=== PATIENT | male | born 1940 | race Caucasian/White ===

== ENCOUNTER 2018-10-31 19:37 | Inpatient (IN) ==
[2018-10-31] MEDS ORDERED: LEVALBUTEROL HCL 1.25 MG/3 ML NEB NEB STA (20:07)
[2018-10-31 20:40] LABS: iSTAT Hemoglobin 14.3 g/dl (14.0-18.0); iSTAT Ionized Calcium 1.15 mmol/l (1.12-1.32); iSTAT Potassium 2.8 mEq/L (3.3-5.0)
[2018-10-31 20:41] LABS: Basophils # (auto) 0.02 K/uL (0-0.2); Basophils % (auto) 0.2 %; Eosinophils # (auto) 0.03 K/uL (0-0.5); Eosinophils % (auto) 0.3 %; Hematocrit (blood only) 42.4 % (42-52); Hemoglobin 15.2 g/dL (14.0-18.0); Immature Granulocytes # (auto) 0.04 K/uL (0.00-0.02); Immature Granulocytes % (auto) 0.3 %; Lymphocytes # (auto) 0.85 K/uL (1.2-3.4); Lymphocytes % (auto) 7.4 %; Mean Corpuscular Hgb Conc 35.8 g/dL (32-36); Mean Corpuscular Volume 86.9 fL (80-100); Mean Platelet Volume 11.4 fL (7.4-10.4); Monocytes # (auto) 0.28 K/uL (0.11-0.59); Monocytes % (auto) 2.4 %; Neutrophils # (auto) 10.31 K/uL (1.4-6.5); Neutrophils % (auto) 89.4 %; Platelet Count 149 K/uL (130-400); RDW Coefficient of Variation 13.6 % (11.5-14.5); RDW Standard Deviation 43.1 fL (36.4-46.3); Red Blood Count 4.88 M/uL (4.7-6.1); White Blood Count 11.53 K/uL (4.8-10.8)
[2018-10-31 20:47] LABS: Influenza A virus by PCR Neg for Influ A (Neg); Influenza B virus by PCR Neg for Influ B (Neg)
[2018-10-31] MEDS ORDERED: MoRPHine SULFATE 10 MG/ML CARP/VIAL IV STA (20:48)
[2018-10-31] MEDS ORDERED: ONDANSETRON INJ 2 MG/ML 2 ML VIAL IV STA (20:48)
[2018-10-31 20:58] LABS: INR 1.1 (0.9-1.1); Partial Thromboplastin Ratio 0.9; Partial Thromboplastin Time 25.6 Seconds (21.0-31.0)
[2018-10-31 21:00] LABS: Alanine Aminotransferase 18 U/L (12-78); Albumin Level 3.3 gm/dl (3.4-5.0); Aspartate Aminotransferase 10 U/L (15-37); Blood Urea Nitrogen 18 mg/dl (7-18); Calcium 8.2 mg/dl (8.5-10.1); Carbon Dioxide 24 mmol/L (21-32); Chloride 106 mmol/L (98-107); Creatinine Clr Calc Pharmacy 58.9 ml/min; Est GFR (African American) 69.5; Glucose 84 mg/dl (70-99); Potassium 2.8 mmol/L (3.5-5.1); Sodium 138 mmol/L (136-145)
[2018-10-31 21:05] LABS: Alkaline Phosphatase 79 U/L (45-117); Bilirubin,Total 1.4 mg/dl (0.2-1); Creatine Kinase 85 U/L (39-308); Creatine Kinase MB < 1.0 ng/ml (0.5-3.6); Globulin 3.2 gm/dl (2.5-4.0); Total Protein 6.5 gm/dl (6.4-8.2); Troponin I < 0.015 ng/ml (0-0.045)
--- NOTE | 2018-10-31 21:11 | XRay Report ---
SINGLE VIEW CHEST CLINICAL HISTORY: Sepsis. FINDINGS: An AP, portable, upright chest radiograph is compared to study dated 08/13/2015 and correlat ed with chest CT dated 03/25/2015. The examination is degraded by portable technique and patient rotati on. The heart is enlarged and there is atherosclerotic calcification of the thoracic aorta. Pulmonar y vasculature is noncongested. Emphysema and chronic interstitial thickening are similar to previous. Airspace consolidation is CT of the left lung base. No large pleural effusion or pneumothorax is see n. The skeletal structures are osteopenic. The bony thorax is grossly intact. IMPRESSION: 1. Cardiomegaly and emphysema without radiographic evidence of congestive failure. 2. Airspace consolidation is seen at the left lung base. Correlate clinically for evidence of pneumon ia/aspiration pneumonitis. Radiographic follow-up to resolution is recommended. Electronically signed by: Vazquez Nieves M.D. 10/31/2018 9:09 PM
[2018-10-31] MEDS ORDERED: OPTIRAY 320 125ml IV PRN (21:17)
[2018-10-31] MEDS ORDERED: POTASSIUM CHLORIDE 10 MEQ TABCR PO STA (21:18)
[2018-10-31] MEDS ORDERED: METOCLOPRAMIDE HCL INJ 5 MG/ML 2 ML VIAL IV STA (21:18)
--- NOTE | 2018-10-31 21:33 | CT Scan Report ---
CT ANGIOGRAM OF THE CHEST; CT SCAN OF THE ABDOMEN AND PELVIS WITH IV CONTRAST CLINICAL HISTORY: Fever. Chills. Cough. Generalized abdominal pain. Nausea. COMPARISON STUDY: Chest x-ray dated 10/31/2018. Chest CT dated 03/25/2015. Abdominal CT dated 02/03/2011 . TECHNIQUE: Following the IV administration of 120 of Optiray 320, CT angiogram of the chest is perfor med from the upper abdomen to the thoracic inlet utilizing the pulmonary embolus protocol. Images are reviewed in the axial, sagittal, coronal planes. 3-D MIPS images are created and assessed. Subsequen tly, CT scan of the abdomen and pelvis was performed from the lung bases to the proximal femora. Imag es are reviewed in the axial, sagittal, and coronal planes. IV contrast was administered without comp lication. A dose lowering technique was utilized adhering to the principles of ALARA. The examination is compromised by motion artifact. CT DOSE: 1036.39 mGy.cm FINDINGS: CHEST: Thyroid: Atrophic versus surgically absent. Thoracic aorta: There is atherosclerotic calcification of the thoracic aorta, which is normal in rian ariane and demonstrates standard 3-vessel arch anatomy. No dissection is seen. Pulmonary vasculature: The pulmonary trunk is normal in caliber. There are no central filling defects identified in the main or lobar pulmonary arteries to indicate pulmonary embolus. Evaluation of the segmental and subsegmental branches is significantly degraded by motion artifact. Heart: The heart is mildly enlarged and without pericardial effusion. The coronary arteries are dense ly calcified. Lungs and pleural spaces: Evaluation of lung parenchyma is significantly degraded by motion artifact. Emphysematous change is noted in the upper lobes. Patchy airspace consolidation is seen at both lung bases, left greater than right. No pleural effusion is identified. The trachea and central airways a re clear. Mediastinum: There is no mediastinal lymphadenopathy. Liss: Enlarged right hilar node measures 2 cm in short axis. Axillae: There is no axillary lymphadenopathy. Bony thorax: The skeletal structures are osteopenic. No lytic or blastic lesions are identified. ABDOMEN AND PELVIS: Liver: The contrast-enhanced liver is normal in size, contour, and attenuation. There is no intrahepa tic or ductal dilatation. The hepatic veins and portal veins are patent. There are least 2 cysts in t he left lobe which measure up to 1.8 cm. Gallbladder: Unremarkable. Spleen: Normal in size and attenuation. Pancreas: Unremarkable. Adrenal glands: Unremarkable. Kidneys: The contrast enhanced kidneys demonstrate cortical atrophy and are without hydronephrosis. T he kidneys enhance symmetrically. Parapelvic cyst on the right are similar to previous. Abdominal vasculature: The abdominal aorta is normal in course and caliber noting advanced atheroscle rotic calcification. Bowel: There is mild colonic diverticulosis without CT evidence of acute diverticulitis. Colonic feca l retention is observed. The appendix is not identified and reported surgically absent. There is a s mall duodenal diverticulum. Peritoneum: There is no intraperitoneal free air or abdominal ascites. There is a fat-containing umbi lical hernia. Lymphadenopathy: None. Pelvic viscera: The prostate gland is mildly enlarged and heterogeneous. Brachytherapy seeds are note d. The bladder wall is mildly thickened and trabeculated indicating chronic outlet obstruction. Skeletal structures: The skeletal structures are osteopenic. There is duzi-ld-hdyeygja lumbosacral sp ondylosis. No lytic or blastic lesions are seen. IMPRESSION: 1. Motion compromised examination. 2. There is no evidence of central pulmonary embolus in the main, lobar, or segmental pulmonary arter ies. 3. Cardiomegaly and emphysema. 4. Patchy airspace consolidation is seen at both lung bases, left greater than right. The appearance is typical for pneumonia/aspiration pneumonitis. Clinical correlation will be required and radiograph ic follow-up to resolution is recommended. 5. There are no acute infectious or inflammatory findings in the abdomen or pelvis. 6. Mild colonic diverticulosis without CT evidence of acute diverticulitis. 7. Additional findings as above. Electronically signed by: Vazquez Nieves M.D. 10/31/2018 9:30 PM
[2018-10-31] MEDS ORDERED: PIPERACILLIN/TAZOBACTAM 4.5 GM/120 ML BAG IV ONE (21:40)
[2018-10-31] MEDS ORDERED: LEVOFLOXACIN/D5W 750 MG/150 ML BAG IV STA (21:40)
[2018-10-31] MEDS ORDERED: PIPERACILL/TAZOBAC CONSULT ACTIVE PRN (21:40)
[2018-10-31] MEDS: POTASSIUM CHLORIDE / WTR 10 MEQ/100 ML PLCT IV SCH ×2 (21:54→23:00)
[2018-10-31] MEDS ORDERED: POTASSIUM CHLORIDE 20 MEQ TABCR PO STA (22:24)
[2018-10-31] MEDS ORDERED: NSS + 20MEQ KCL 20 MEQ/1,000 ML BAG IV ONE (22:26)
[2018-10-31] MEDS ORDERED: methylPREDNISolone 20 MG in SYRINGE 0 ML IV STA (22:27)
[2018-10-31 23:13] LABS: Magnesium 1.7 mg/dl (1.8-2.4)
--- NOTE | 2018-10-31 23:23 | History & Physical Report ---
Date of Service October 31, 2018 Assessment & Plan (1) Acute hypoxemic respiratory failure: Secondary to aspiration pneumonia Possible sepsis CAD as per records hypertension, BP on the lower side hx bilateral PE status post anti-coagulation BPH/prostate cancer as per records hypothyroidism, TSH noted to be low Loose stools rule out C. difficile past tobacco abuse Medical telemetry Supplemental O2 Baseline ABG Solu-Medrol 1 dose for bronchospasm causing hypoxemia, may benefit from a dditional steroid doses Cultures, Unasyn IVF Hold home antihypertensives for now until BP stable. Check other TFTs, levothyroxine dose may need adjustment Stool C. difficile PT OT eval DVT prophylaxis. Lovenox subcu Full code History of Present Illness Chief Complaint: Chest pain, S OB Primary Care Provider: Donn Clarke MD History obtained from patient, family, and records. Medical history significant for CAD, hypertension, history of PE status post anti-coagulation, asthma, BPH/prostate cancer, skin cancer, hypothyroidism, past tobacco abuse Recent confinement January 2015 for BPPV. Last month, patient noted chest/abdominal pain after falling on an upright log at home. Loose stools since accident as per family. Outpatient imaging unremarkable. Discomfort had subsided to be a dull discomfort as per patient. Today patient noted fever chills nausea emesis, worsening of epigastric/chest pain. Patient subsequently noted junky cough, increasing shortness of breath. At the ER, patient received Levaquin and Zosyn for pneumonia. 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 Allergies Allergy/AdvReac Type Severity Reaction Status Date / Time codeine AdvReac Mild N/V Verified 10/31/18 22:43 Home Medications Home Medications Medication Instructions Recorded Confirmed Type aspirin [Aspir-Low] 81 mg PO DAILY 10/31/18 10/31/18 History atorvastatin 20 mg PO DAILY 10/31/18 10/31/18 History dextran 70-hypromellose (PF) 1 drp OPL QID PRN 10/31/18 10/31/18 History fluticasone propion-salmeterol 1 inh INHALATION BID 10/31/18 10/31/18 History [Advair Diskus] guaifenesin [Mucinex] 600 mg PO Q12H PRN 10/31/18 10/31/18 History ipratropium-albuterol 3 ml INHALATION Q4 PRN 10/31/18 10/31/18 History levothyroxine 137 mcg PO 4XWK 10/31/18 10/31/18 History levothyroxine [Synthroid] 150 mcg PO 3XWK 10/31/18 10/31/18 History loratadine [Claritin] 10 mg PO DAILY 10/31/18 10/31/18 History losartan-hydrochlorothiazide 1 tab PO DAILY 10/31/18 10/31/18 History meclizine 25 mg PO Q6 PRN 10/31/18 10/31/18 History naproxen sodium [Aleve] 220 mg PO BID PRN 10/31/18 10/31/18 History potassium chloride [Klor-Con M10] 10 meq PO DAILY 10/31/18 10/31/18 History ranitidine HCl 300 mg PO QPM 10/31/18 10/31/18 History sertraline 50 mg PO DAILY 10/31/18 10/31/18 History tamsulosin [Flomax] 0.4 mg PO HS 10/31/18 10/31/18 History triamcinolone acetonide 1 spray INTRANASAL DAILY 10/31/18 10/31/18 History verapamil 120 mg PO QPM 10/31/18 10/31/18 History Past Med/Surg History Medical History Hypertension (Chronic) Asthma (Chronic) Emphysema of lung (Chronic) COPD (chronic obstructive pulmonary disease) (Chronic) Pulmonary emboli (Resolved) Prostate cancer (Resolved) Skin cancer (Resolved) Surgical History History of appendectomy (Resolved) H/O rotator cuff surgery (Resolved) Status post operation on nasal sinus (Resolved) "09/2002" Social History Preferred Language: French Communication Ability: Effective Maintenance Trainer Required: No Beliefs That Will Affect Care: None marital status: Current Living Situation: Spouse Other Information That Helps Us Care for You: No Feels Safe at Home: Yes Safety Concerns: Feels Safe At This Time Smoking Status: Unknown if ever smoked Hx Alcohol Use: Yes Alcohol type: beer, wine and hard liquor Hx Substance Use: No Review of Systems Review of Systems: As per HPI, all 10 systems reviewed, all other ROS negative Physical Exam Vital Signs (Past 24 Hours): Last Vital Signs Temp 37.2 C 10/31/18 19:40 Pulse 109 H 10/31/18 22:01 Resp 17 10/31/18 22:01 BP 111/57 L 10/31/18 22:01 Pulse Ox 86 L 10/31/18 21:45 Physical Exam: GENERAL: uncomfortable, pleasant, no respiratory distress SKIN: Normal color, warm HEENT: Bespectacled, pink palpebral conjunctivae, no ptosis, dry buccal mucosa NECK : Supple, no tenderness CHEST : Decreased breath sounds, occasional wheeze, no tenderness HEART : Tachycardic, no obvious murmurs ABDOMEN: Some distention, nontender EXTREMITIES : No LE swelling/tenderness, no other conspicuous deformities noted NEUROLOGIC : Coherent, no facial asymmetry, no other gross focality Results & Data Laboratory Results Laboratory Results WBC 11.53 K/uL (4.8-10.8) H 10/31/18 20:23 RBC 4.88 M/uL (4.7-6.1) 10/31/18 20:23 Hgb 15.2 g/dL (14.0-18.0) 10/31/18 20:23 POC Hgb 14.3 g/dl (14.0-18.0) 10/31/18 20:25 Hct 42.4 % (42-52) 10/31/18 20:23 POC Hct 42 % (42-52) 10/31/18 20:25 MCV 86.9 fL (80-100) 10/31/18 20:23 MCH 31.1 pg (25-34) 10/31/18 20:23 MCHC 35.8 g/dL (32-36) 10/31/18 20:23 RDW Std Deviation 43.1 fL (36.4-46.3) 10/31/18 20:23 RDW Coeff of Valentino 13.6 % (11.5-14.5) 10/31/18 20: Plt Count 149 K/uL (130-400) 10/31/18 20:23 MPV 11.4 fL (7.4-10.4) H 10/31/18 20: Immature Gran % (Auto) 0.3 % 10/31/18 20: Neut % (Auto) 89.4 % 10/31/18 20: Lymph % (Auto) 7.4 % 10/31/18 20: Edwards % (Auto) 2.4 % 10/31/18 20: Eos % (Auto) 0.3 % 10/31/18: Baso % (Auto) 0.2 % 10/31/18: Immature Gran # (Auto) 0.04 K/uL (0.00-0.02) H 10/31/18 20: Neut # (Auto) 10.31 K/uL (1.4-6.5) H 10/31/18 20: Lymph # (Auto) 0.85 K/uL (1.2-3.4) L 10/31/18: Edwards # (Auto) 0.28 K/uL (0.11-0.59) 10/31/18 20: Eos # (Auto) 0.03 K/uL (0-0.5) 10/31/18: Baso # (Auto) 0.02 K/uL (0-0.2) 10/31/18: PT 11.0 Seconds (9.0-12.0) 10/31/18 20: INR 1.1 (0.9-1.1) 10/31/18: APTT 25.6 Seconds (21.0-31.0) 10/31/18: PTT Ratio 0.9 10/31/18: POC Sodium 139 mEq/L (135-144) 10/31/18 20:25 Sodium 138 mmol/L (136-145) 10/31/18 20: POC Potassium 2.8 mEq/L (3.3-5.0) L 10/31/18 20: Potassium 2.8 mmol/L (3.5-5.1) L 10/31/18 20: POC Chloride 103 mEq/L (101-112) 10/31/18 20: Chloride 106 mmol/L (98-107) 10/31/18 20:23 Carbon Dioxide 24 mmol/L (21-32) 10/31/18 20: POC Total CO2 20 mEq/l (24-31) L 10/31/18 20:25 Anion Gap 8.0 (3-11) 10/31/18 20:23 POC Anion Gap 21.0 mmol/L (16-25) 10/31/18 20:25 POC BUN 18 mg/dl (7-18) 10/31/18 20:25 BUN 18 mg/dl (7-18) 10/31/18 20: Creatinine 1.18 mg/dl (0.6-1.4) 10/31/18 20: POC Creatinine 1.0 mg/dl (0.6-1.3) 10/31/18 20: Est Cr Clr Drug Dosing 58.9 ml/min 10/31/18 20: Est GFR ( Amer) 69.5 10/31/18 20: Est GFR (Non-Af Amer) 60.0 10/31/18: BUN/Creatinine Ratio 15.0 (10-20) 10/31/18 20: Glucose 84 mg/dl (70-99) 10/31/18 20: POC Glucose (other) 91 mg/dl (70-99) 10/31/18 20:25 POC Lactic Acid Adarsh 1.56 mmol/L (0.90-1.70) 10/31/18 20: Calcium 8.2 mg/dl (8.5-10.1) L 10/31/18 20: POC Ioniz Calcium Ruben 1.15 mmol/l (1.12-1.32) 10/31/18 20: Magnesium 1.7 mg/dl (1.8-2.4) L 10/31/18 20: Total Bilirubin 1.4 mg/dl (0.2-1) H 10/31/18 20:23 AST 10 U/L (15-37) L 10/31/18 20: ALT 18 U/L (12-78) 10/31/18 20: Alkaline Phosphatase 79 U/L (45-117) 10/31/18 20:23 Total Creatine Kinase 85 U/L (39-308) 10/31/18 20: CK-MB (CK-2) < 1.0 ng/ml (0.5-3.6) 10/31/18 20: CK/CKMB % Calc TNP 10/31/18 20: Troponin I < 0.015 ng/ml (0-0.045) 10/31/18 20: Total Protein 6.5 gm/dl (6.4-8.2) 10/31/18 20: Albumin 3.3 gm/dl (3.4-5.0) L 10/31/18: Globulin 3.2 gm/dl (2.5-4.0) 10/31/18 20: Albumin/Globulin Ratio 1.0 (0.9-2) 10/31/18: TSH 0.143 uIu/ml (0.300-4.500) L 10/31/18 20:23 Influenza Type A (PCR) Neg for Influ A (Neg) 10/31/18 20: Influenza Type B (PCR) Neg for Influ B (Neg) 10/31/18 20:[address] chest, abdomen pelvis: 1. Motion compromised examination. 2. There is no evidence of central pulmonary embolus in the main, lobar, or segmental pulmonary arteries. 3. Cardiomegaly and emphysema. 4. Patchy airspace consolidation is seen at both lung bases, left greater than r ight. The appearance is typical for pneumonia/aspiration pneumonitis. Clinical correlation will be required and radiographic follow-up to resolution is recommended. 5. There are no acute infectious or inflammatory findings in the abdomen or pelvis. 6. Mild colonic diverticulosis without CT evidence of acute diverticulitis.
[2018-10-31 23:47] LABS: Allen Test Pos (Pos); HCO3 ABG 22 mmol/L (19-24); Oxygen Saturation ABG 93.5 % (90-95); PCO2 ABG 36 mmHg (35-46); PO2 ABG 68 mm/Hg (80-95); pH ABG 7.41 (7.35-7.45)
[2018-10-31 23:54] LABS: Appearance Urine Clear (Clear); Bilirubin Urine Negative (Negative); Blood Urine Negative (Negative); Color Urine Yellow; Glucose Urine UA Negative (Negative); Ketones Urine Negative (Negative); Leukocyte Esterase Urine Negative (Negative); Nitrite Urine Negative (Negative); Protein Urine Negative (Negative); Specific Gravity Urine > 1.045 (1.000-1.030); Urobilinogen Urine Negative (Negative); pH Urine 5.5 (4.5-7.5)
[2018-11-01] MEDS ORDERED: PROCHLORPERAZINE 5 MG in SYRINGE 4 ML IV PRN (00:47)
[2018-11-01] MEDS ORDERED: LORazepam 0.25 MG/0.5 ML VIAL IV PRN (00:47)
[2018-11-01] MEDS ORDERED: TRAMADOL HCL 50 MG TABLET PO PRN (00:47)
[2018-11-01] MEDS ORDERED: MoRPHine SULFATE 4 MG/ML 1 ML CARP\\VIAL IV PRN (00:47)
[2018-11-01] MEDS ORDERED: DEXTRAN HYPROMELLOSE OPL PRN (00:47)
[2018-11-01] MEDS ORDERED: ACETAMINOPHEN 325 MG TAB PO PRN (00:47)
[2018-11-01] MEDS ORDERED: XOPENEX/ATROVENT 1.25mg/0.5MG NEB COMBO NEB SCH (02:00)
[2018-11-01] MEDS: IPRATROPIUM BROMIDE NEB SOLN 0.02% 2.5 ML VIAL INH SCH ×4 (02:05→19:15)
[2018-11-01] MEDS: LEVALBUTEROL 1.25MG/0.5ML NEB INH SCH ×4 (02:05→19:16)
[2018-11-01] MEDS: AMPICILLIN/SULBACTAM SOD 3,000 MG in 0.9 % SODIUM CHLORIDE 100 ML IV SCH ×4 (02:07→20:07)
[2018-11-01] MEDS ORDERED: MAGNESIUM SULFATE / D5W 1 GM/100 ML BAG IV ONE (03:31)
[2018-11-01] MEDS ORDERED: NSS + 20MEQ KCL 20 MEQ/1,000 ML BAG IV ONE (04:00)
[2018-11-01 06:23] LABS: Basophils # (auto) 0.01 K/uL (0-0.2); Hematocrit (blood only) 43.1 % (42-52); Hemoglobin 14.9 g/dL (14.0-18.0); Immature Granulocytes % (auto) 0.5 %; Lymphocytes # (auto) 0.55 K/uL (1.2-3.4); Lymphocytes % (auto) 2.6 %; Mean Corpuscular Hgb Conc 34.6 g/dL (32-36); Mean Corpuscular Volume 88.7 fL (80-100); Mean Platelet Volume 11.6 fL (7.4-10.4); Monocytes # (auto) 0.74 K/uL (0.11-0.59); Monocytes % (auto) 3.5 %; Neutrophils # (auto) 19.45 K/uL (1.4-6.5); Neutrophils % (auto) 93.4 %; Platelet Count 152 K/uL (130-400); RDW Standard Deviation 45.2 fL (36.4-46.3); Red Blood Count 4.86 M/uL (4.7-6.1); White Blood Count 20.85 K/uL (4.8-10.8)
[2018-11-01] MEDS ORDERED: LEVOTHYROXINE SODIUM 150 MCG TABLET PO SCH (06:30)
[2018-11-01 06:48] LABS: BUN Creatinine Ratio 12.7 (10-20); Calcium 8.4 mg/dl (8.5-10.1); Est GFR (African American) 66.8; Est GFR (Non-African American) 57.6; Magnesium 2.3 mg/dl (1.8-2.4); Potassium 4.4 mmol/L (3.5-5.1)
[2018-11-01 06:57] LABS: T4 Free Thyroxine 1.35 ng/dl (0.8-1.6)
[2018-11-01] MEDS: POTASSIUM CHLORIDE 10 MEQ TABCR PO SCH (08:34)
[2018-11-01] MEDS: LORATADINE 10 MG TAB PO SCH (08:34)
[2018-11-01] MEDS: ATORVASTATIN 20 MG TAB PO SCH (08:35)
[2018-11-01] MEDS: SERTRALINE HCL 50 MG TABLET PO SCH (08:35)
[2018-11-01] MEDS: TRIAMCINOLONE ACET NASAL SPRAY 10.8ML BTL SCH (08:36)
[2018-11-01] MEDS: FLUTICASONE/SALMETEROL 250/50 (ADVAIR) 14 PUFF/1 INHALER INH SCH ×2 (08:36→20:11)
[2018-11-01] MEDS: LOSARTAN POTASSIUM 50 MG TAB PO SCH (08:48)
[2018-11-01] MEDS ORDERED: Nursing to Pharmacy Communication ONE (08:50)
[2018-11-01] MEDS ORDERED: ASPIRIN 81 MG ECTAB PO SCH ×2 (09:00→21:00)
[2018-11-01] MEDS ORDERED: AMPICILLIN/SULBACTAM CONSULT ACTIVE PRN (09:00)
[2018-11-01] MEDS ORDERED: ALUMINUM/MAGNESIUM SUSP 30 ML UDC ONE (10:49)
--- NOTE | 2018-11-01 12:26 | Hospitalist Progress Note ---
Date of Service November 01, 2018 Assessment & Plan (1) Acute hypoxemic respiratory failure: Likely secondary to aspiration pneumonia, denies any problem with swallowing but has had nausea vomiting prior to this event Doubt any sepsis sepsis Clinically a lot better today Increased white count likely secondary to steroid We will continue current medications CAD as per records Denies any cardiac symptoms Hypertension, BP on the lower side Blood pressure has been stabilized H/P bilateral PE status post anti-coagulation Not on any anticoagulation right now BPH/prostate cancer as per records Continue current medication Hypothyroidism, TSH noted to be low Continue replacement Loose stools rule out C. difficile-pending for now past tobacco abuse PT OT eval DVT prophylaxis. Lovenox subcu Full code Subjective 11/01 The patient was seen and examined the medical telemetry unit Is a 77-year-old male significant past medical history of pulmonary embolism, COPD/asthma, hypertension was admitted with bibasilar pneumonia suspected to be secondary to aspiration Clinically a lot better today Complains to have some shortness of breath and wheezing at rest denies any other symptoms Review of Systems Review of Systems: All systems reviewed & are unremarkable except as noted in HPI & below Respiratory: + cough, + dyspnea on exertion and + wheezing Physical Exam Physical Exam: No apparent distress at rest Constitutional: WD/WN, vitals as above well developed Eyes: PERRL, conjunctivae normal, anicteric sclerae ENMT: external ear and nose normal, oropharynx normal Neck: trachea midline, no thyromegaly Respiratory: + respiratory distress and + labored breathing Auscultation: + diminished lung sounds, + crackles (Bibasal) and + wheezes (Bilaterally) Cardiovascular: Rate/Rhythm: regular rate and regular rhythm Heart Sounds: normal S1 and normal S2 Gastrointestinal (Abdomen): Inspection/Auscultation: abdomen normal to inspection and normal bowel sounds Percussion/Palpation: abdomen soft; abdomen nontender Neurologic: Alert, awake and oriented x3 Results & Data Vital Signs (Past 12 Hours) Vital Signs Temp Pulse Resp BP BP Pulse Ox 11/01/18 11:05 36.4 C L 65 20 125/62 93 11/01/18 10:00 91 11/01/18 07:35 82 18 96 11/01/18 07:18 36.6 C 87 20 135/73 94 11/01/18 03:35 36.7 C 90 18 129/73 92 11/01/18 02:05 90 16 97 11/01/18 01:22 36.7 C 96 H 18 145/78 H 95 Laboratory Results Short CBC 10/31/18 11/01/18 Range/Units 20:23 05:49 WBC 11.53 H 20.85 H (4.8-10.8) K/uL Hgb 15.2 14.9 (14.0-18.0) g/dL Hct 42.4 43.1 (42-52) % Plt Count 149 152 (130-400) K/uL BMP 10/31/18 11/01/18 20:23 05:49 Sodium 138 141 Potassium 2.8 L 4.4 D Chloride 106 111 H Carbon Dioxide 24 22 BUN 18 16 Creatinine 1.18 1.22 Glucose 84 129 H Calcium 8.2 L 8.4 L Cardiac Enzymes 10/31/18 Range/Units 20:23 Total Creatine Kinase 85 (39-308) U/L CK-MB (CK-2) < 1.0 (0.5-3.6) ng/ml Troponin I < 0.015 (0-0.045) ng/ml Liver Function 10/31/18 Range/Units 20:23 Total Bilirubin 1.4 H (0.2-1) mg/dl AST 10 L (15-37) U/L ALT 18 (12-78) U/L Alkaline Phosphatase 79 (45-117) U/L Albumin 3.3 L (3.4-5.0) gm/dl Urine 10/31/18 Range/Units 23:34 Urine Color Yellow Urine Appearance Clear (Clear) Urine pH 5.5 (4.5-7.5) Ur Specific Ch[place] > 1.045 H (1.000-1.030) Urine Protein Negative (Negative) Urine Glucose (UA) Negative (Negative) Medications Administered Current Inpatient Medications Acetaminophen (Tylenol) 650 mg PO Q4H PRN PRN Reason: Pain or Fever Stop: 12/01/18 00:46 Aspirin (Ecotrin Ectab) 81 mg PO HS JOHANA Stop: 12/01/18 08:59 Atorvastatin Calcium (Lipitor) 20 mg PO DAILY JOHANA Stop: 12/01/18 08:59 Last Admin: 11/01/18 08:35 Dose: 20 mg Documented by: Guaifenesin (Mucinex) 600 mg PO Q12H PRN PRN Reason: Congestion Stop: 12/01/18 00:46 Lorazepam (Ativan) 0.25 mg in 0.5 mls @ 0.5 mls/min IV Q4H PRN PRN Reason: Anxiety/Agitation Stop: 12/01/18 00:46 Potassium Chloride/Sodium Chloride (Normal Saline W/20 Meq Kcl) 20 meq in 1,000 mls @ 80 mls/hr IV .[id number] ONE Stop: 11/01/18 16:29 Last Admin: 11/01/18 03:46 Dose: 80 mls/hr Documented by: Prochlorperazine 5 mg/ Syringe 5 mls @ 5 mls/min IV Q6H PRN PRN Reason: Nausea And Vomiting Stop: 12/01/18 00:46 Ampicillin Sodium/Sulbactam Sodium 3,000 mg/ Sodium Chloride 108 mls @ 216 mls/hr IV Q6H [facility] Stop: 11/08/18 01:59 Last Infusion: 11/01/18 09:28 Dose: Infused Documented by: Ipratropium Weikert (Atrovent 0.02% 0.5mg/2.5ml) 0.5 mg INH Q6R [facility] Stop: 12/01/18 01:59 Last Admin: 11/01/18 07:31 Dose: 0.5 mg Documented by: Levalbuterol HCl (Xopenex 1.25mg/0.5ml Neb) 1.25 mg INH Q6R [facility] Stop: 12/01/18 01:59 Last Admin: 11/01/18 07:31 Dose: 1.25 mg Documented by: Levothyroxine Sodium (Levothyroxine Sodium) 137 mcg PO [email or web address] [facility] Stop: 12/02/18 06:29 Levothyroxine Sodium (Synthroid) 150 mcg PO [email or web address] [facility] Stop: 12/01/18 06:29 Last Admin: 11/01/18 04:53 Dose: 150 mcg Documented by: Loratadine (Claritin) 10 mg PO DAILY [facility] Stop: 12/01/18 08:59 Last Admin: 11/01/18 08:34 Dose: 10 mg Documented by: Losartan Potassium (Cozaar) 100 mg PO QAM [facility] Stop: 12/01/18 08:59 Last Admin: 11/01/18 08:48 Dose: 100 mg Documented by: Miscellaneous Information (Ampicillin/Sulbactam Consult) 1 ea N/A DAILY PRN PRN Reason: Consult Stop: 12/01/18 08:59 Morphine Sulfate (Morphine Sulfate) 4 mg IV Q4H PRN PRN Reason: Pain Stop: 11/15/18 00:46 Potassium Chloride (Klor-Con M10) 20 meq PO DAILY JOHANA Stop: 12/01/18 08:59 Last Admin: 11/01/18 08:34 Dose: 20 meq Documented by: Ranitidine HCl (Zantac) 300 mg PO QPM [facility] Stop: 12/01/18 20:59 Fluticasone/Salmeterol (Advair Diskus 250/50) 1 puffs INH BID JOHANA Stop: 12/01/18 08:59 Last Admin: 11/01/18 08:36 Dose: 1 puffs Documented by: Sertraline HCl (Zoloft) 50 mg PO DAILY JOHANA Stop: 12/01/18 08:59 Last Admin: 11/01/18 08:35 Dose: 50 mg Documented by: Tamsulosin HCl (Flomax) 0.4 mg PO HS [facility] Stop: 12/01/18 20:59 Tramadol HCl (Ultram) 25 - 50 mg PO Q4H PRN PRN Reason: Pain Stop: 12/01/18 00:46 Triamcinolone Acetonide (Nasacort) 1 sprays NA DAILY [facility] Stop: 12/01/18 08:59 Last Admin: 11/01/18 08:36 Dose: 1 sprays Documented by: Verapamil HCl (Calan Sr) 120 mg PO QPM [facility] Stop: 12/01/18 20:59
[2018-11-01] MEDS: guaiFENesin 600 MG TABCR PO PRN (20:11)
[2018-11-01] MEDS ORDERED: LORazepam 0.5 MG TAB PO STA (20:25)
[2018-11-01] MEDS ORDERED: POLYETHYLENE (MIRALAX) 17 GM PACK PO PRN (20:25)
[2018-11-01] MEDS ORDERED: TAMSULOSIN HCL 0.4 MG CAP PO SCH (21:00)
[2018-11-01] MEDS ORDERED: VERAPAMIL HCL 120 MG TABCR PO SCH (21:00)
[2018-11-01] MEDS: DOCUSATE SODIUM 100 MG CAP PO SCH (21:17)
[2018-11-02] MEDS: AMPICILLIN/SULBACTAM SOD 3,000 MG in 0.9 % SODIUM CHLORIDE 100 ML IV SCH ×2 (02:04→08:16)
[2018-11-02] MEDS: LEVALBUTEROL 1.25MG/0.5ML NEB INH SCH ×3 (02:07→14:02)
[2018-11-02] MEDS: IPRATROPIUM BROMIDE NEB SOLN 0.02% 2.5 ML VIAL INH SCH ×3 (02:08→14:02)
--- NOTE | 2018-11-02 03:56 | Emergency Department Note ---
Entered by Ira Justice acting as a scribe for History of Present Illness General Chief complaint: Illness Stated complaint: CHILLS, PAINS ALL OVER, NAUSEA, COUGH Time Seen by Provider: 10/31/18 19:52 Source: patient Mode of arrival: ambulatory Limitations: no limitations History of Present Illness Provider complaint: chest pain Onset (ago): hour(s) (this afternoon) Location: chest Pain Consistency: + other (episode) Quality: + other (chest pain) Associated symptoms: + fever/chills, + headaches, + nausea/vomiting and + other (neck pain, left arm pain) The patient is a 77 year old male who presents to the Emergency Room with co mplaints of an episode of chest pain that began this afternoon. The patient reports that he has also been experiencing fevers, chills, a headache, nausea, dizziness, and a left-sided neck pain that radiates into his left arm. He states that he does have a history of heart disease and notes he did have a stress test performed which was negative. He denies having a heart catheterization done. Per family, the patient last took Tylenol 2 hours ago. He notes that he did injure his chest with a log several weeks ago. He reports that he did have x-rays taken. Home Medications Home Medications Medication Instructions Recorded Confirmed Type aspirin [Aspir-Low] 81 mg PO DAILY 10/31/18 10/31/18 History atorvastatin 20 mg PO DAILY 10/31/18 10/31/18 History dextran 70-hypromellose (PF) 1 drp OPL QID PRN 10/31/18 10/31/18 History fluticasone propion-salmeterol 1 inh INHALATION BID 10/31/18 10/31/18 History [Advair Diskus] guaifenesin [Mucinex] 600 mg PO Q12H PRN 10/31/18 10/31/18 History ipratropium-albuterol 3 ml INHALATION Q4 PRN 10/31/18 10/31/18 History levothyroxine 137 mcg PO 4XWK 10/31/18 10/31/18 History levothyroxine [Synthroid] 150 mcg PO 3XWK 10/31/18 10/31/18 History loratadine [Claritin] 10 mg PO DAILY 10/31/18 10/31/18 History losartan-hydrochlorothiazide 1 tab PO DAILY 10/31/18 10/31/18 History meclizine 25 mg PO Q6 PRN 10/31/18 10/31/18 History naproxen sodium [Aleve] 220 mg PO BID PRN 10/31/18 10/31/18 History potassium chloride [Klor-Con M10] 10 meq PO DAILY 10/31/18 10/31/18 History ranitidine HCl 300 mg PO QPM 10/31/18 10/31/18 History sertraline 50 mg PO DAILY 10/31/18 10/31/18 History tamsulosin [Flomax] 0.4 mg PO HS 10/31/18 10/31/18 History triamcinolone acetonide 1 spray INTRANASAL DAILY 10/31/18 10/31/18 History verapamil 120 mg PO QPM 10/31/18 10/31/18 History Allergies Allergy/AdvReac Type Severity Reaction Status Date / Time codeine AdvReac Mild N/V Verified 10/31/18 22:43 Past Med/Surg History Medical History Hypertension (Chronic) Asthma (Chronic) Emphysema of lung (Chronic) COPD (chronic obstructive pulmonary disease) (Chronic) Pulmonary emboli (Resolved) Prostate cancer (Resolved) Skin cancer (Resolved) Surgical History History of appendectomy (Resolved) H/O rotator cuff surgery (Resolved) Status post operation on nasal sinus (Resolved) "09/2002" Social History Preferred Language: Tuvaluan Communication Ability: Effective 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 and A total of 10 systems reviewed and were otherwise negative Physical Exam Vital Signs Vital Signs - 24 hr 11/01/18 08:56 11/01/18 10:00 11/01/18 11:05 Temperature 36.4 C L Temperature Source Oral Pulse Rate [Right] 65 Respiratory Rate 20 Respiratory Effort / Characteristics Non-Labored Respiratory Depth Blood Pressure [Left Arm] Blood Pressure [Right Arm] 125/62 Blood Pressure Mean [Left Arm] Blood Pressure Mean [Right Arm] 83 Blood Pressure Position [Left Arm] Blood Pressure Position [Right Arm] Sitting Pulse Oximetry 91 93 Oxygen Delivery Method Room Air Room Air 11/01/18 13:46 11/01/18 15:29 11/01/18 19:18 Temperature 36.6 C Temperature Source Oral Pulse Rate [Right] 81 79 96 H Respiratory Rate 14 18 16 Respiratory Effort / Characteristics Spontaneous Non-Labored Spontaneous Respiratory Depth Blood Pressure [Left Arm] Blood Pressure [Right Arm] 114/61 Blood Pressure Mean [Left Arm] Blood Pressure Mean [Right Arm] 78 Blood Pressure Position [Left Arm] Blood Pressure Position [Right Arm] Pulse Oximetry 94 90 94 Oxygen Delivery Method Room Air Room Air 11/01/18 19:30 11/01/18 20:00 11/01/18 23:02 Temperature 36.8 C 36.6 C Temperature Source Oral Oral Pulse Rate [Right] 80 90 Respiratory Rate 18 18 Respiratory Effort / Characteristics Non-Labored Spontaneous Respiratory Depth Normal Blood Pressure [Left Arm] 119/65 120/67 Blood Pressure [Right Arm] Blood Pressure Mean [Left Arm] 83 84 Blood Pressure Mean [Right Arm] Blood Pressure Position [Left Arm] Blood Pressure Position [Right Arm] Pulse Oximetry 92 90 Oxygen Delivery Method Room Air 11/02/18 02:08 11/02/18 04:00 11/02/18 07:20 Temperature 36.8 C 36.5 C Temperature Source Oral Oral Pulse Rate [Right] 72 84 68 Respiratory Rate 16 16 18 Respiratory Effort / Characteristics Non-Labored Spontaneous Respiratory Depth Normal Blood Pressure [Left Arm] 105/58 L 116/66 Blood Pressure [Right Arm] Blood Pressure Mean [Left Arm] 73 82 Blood Pressure Mean [Right Arm] Blood Pressure Position [Left Arm] Lying Lying Blood Pressure Position [Right Arm] Pulse Oximetry 93 92 98 Oxygen Delivery Method Room Air Room Air Room Air GENERAL: Patient is a healthy-appearing well-nourished HEAD: Normocephalic atraumatic EYES: Ocular movements intact pupils equal and react to light OROPHARYNX mucous membranes are moist no exudates present no erythema or edema present NECK: Supple no nuchal rigidity CHEST: Good equal expansion LUNGS: Wheezing present in the left side of his chest. CARDIAC: Normal S1 and S2 ABDOMEN: Soft nontender no guarding BACK: No CVA tenderness EXTREMITIES: No pain upon palpation normal muscle strength in all groups no clubbing cyanosis or edema NEURO: Patient is following commands is answering questions appropriately. Alert and oriented x3 Cranial Nerves 2-12 grossly intact Course 2000: Past medical records reviewed. The patient was evaluated in room C4, and a complete history and physical examination were performed. 2143: I reviewed the patient's case with Dr. Milagro Paniagua Hospitalist. He will evaluate the patient for further management. 2148: I discussed today's findings with the patient and he verbalized agreement of the treatment plan. Administered Medications Aspirin (Ecotrin Ectab) 81 mg PO HS JOHANA Stop: 12/01/18 08:59 Last Admin: 11/01/18 20:12 Dose: 81 mg Documented by: [id number] Atorvastatin Calcium (Lipitor) 20 mg PO DAILY JOHANA Stop: 12/01/18 08:59 Last Admin: 11/01/18 08:35 Dose: 20 mg Documented by: [id number] Docusate Sodium (Colace) 100 mg PO DAILY JOHANA Stop: 12/01/18 20:24 Last Admin: 11/01/18 21:17 Dose: Not Given Documented by: [id number] Guaifenesin (Mucinex) 600 mg PO Q12H PRN PRN Reason: Congestion Stop: 12/01/18 00:46 Last Admin: 11/01/18 20:11 Dose: 600 mg Documented by: [id number] Ampicillin Sodium/Sulbactam Sodium 3,000 mg/ Sodium Chloride 108 mls @ 216 mls/hr IV Q6H JOHANA Stop: 11/08/18 01:59 Last Infusion: 11/02/18 02:38 Dose: 0 mls/hr Documented by: [id number] Admin: 11/02/18 02:04 Dose: 216 mls/hr Documented by: [id number] Infusion: 11/01/18 20:38 Dose: 0 mls/hr Documented by: [id number] Admin: 11/01/18 20:07 Dose: 216 mls/hr Documented by: [id number] Infusion: 11/01/18 14:00 Dose: 0 mls/hr Documented by: [id number] Admin: 11/01/18 13:10 Dose: 216 mls/hr Documented by: [id number] Infusion: 11/01/18 09:28 Dose: 0 mls/hr Documented by: [id number] Admin: 11/01/18 08:37 Dose: 216 mls/hr Documented by: [id number] Infusion: 11/01/18 02:49 Dose: 0 mls/hr Documented by: [id number] Admin: 11/01/18 02:07 Dose: 216 mls/hr Documented by: [id number] Ipratropium Moore (Atrovent 0.02% 0.5mg/2.5ml) 0.5 mg INH Q6R [facility] Stop: 12/01/18 01:59 Last Admin: 11/02/18 06:54 Dose: 0.5 mg Documented by: [id number] Admin: 11/02/18 02:08 Dose: 0.5 mg Documented by: [id number] Admin: 11/01/18 19:15 Dose: 0.5 mg Documented by: [id number] Admin: 11/01/18 13:46 Dose: 0.5 mg Documented by: [id number] Admin: 11/01/18 07:31 Dose: 0.5 mg Documented by: [id number] Admin: 11/01/18 02:05 Dose: 0.5 mg Documented by: [id number] Levalbuterol HCl (Xopenex 1.25mg/0.5ml Neb) 1.25 mg INH Q6R [facility] Stop: 12/01/18 01:59 Last Admin: 11/02/18 06:54 Dose: 1.25 mg Documented by: [id number] Admin: 11/02/18 02:07 Dose: 1.25 mg Documented by: [id number] Admin: 11/01/18 19:16 Dose: 1.25 mg Documented by: [id number] Admin: 11/01/18 13:46 Dose: 1.25 mg Documented by: [id number] Admin: 11/01/18 07:31 Dose: 1.25 mg Documented by: [id number] Admin: 11/01/18 02:05 Dose: 1.25 mg Documented by: [id number] Levothyroxine Sodium (Levothyroxine Sodium) 137 mcg PO [email or web address] [facility] Stop: 12/02/18 06:29 Last Admin: 11/02/18 06:04 Dose: 137 mcg Documented by: [id number] Levothyroxine Sodium (Synthroid) 150 mcg PO [email or web address]@30 [facility] Stop: 12/01/18 06:29 Last Admin: 11/01/18 04:53 Dose: 150 mcg Documented by: [id number] Loratadine (Claritin) 10 mg PO DAILY JOHANA Stop: 12/01/18 08:59 Last Admin: 11/01/18 08:34 Dose: 10 mg Documented by: [id number] Losartan Potassium (Cozaar) 100 mg PO QAM JOHANA Stop: 12/01/18 08:59 Last Admin: 11/01/18 08:48 Dose: 100 mg Documented by: [id number] Polyethylene Glycol (Miralax Powder Packet) 17 gm PO DAILY PRN PRN Reason: Constipation Stop: 12/01/18 20:24 Last Admin: 11/01/18 21:17 Dose: 17 gm Documented by: [id number] Potassium Chloride (Klor-Con M10) 20 meq PO DAILY JOHANA Stop: 12/01/18 08:59 Last Admin: 11/01/18 08:34 Dose: 20 meq Documented by: [id number] Ranitidine HCl (Zantac) 300 mg PO QPM JOHANA Stop: 12/01/18 20:59 Last Admin: 11/01/18 20:12 Dose: 300 mg Documented by: [id number] Fluticasone/Salmeterol (Advair Diskus 250/50) 1 puffs INH BID [facility] Stop: 12/01/18 08:59 Last Admin: 11/01/18 20:11 Dose: 1 puffs Documented by: [id number] Admin: 11/01/18 08:36 Dose: 1 puffs Documented by: [id number] Sertraline HCl (Zoloft) 50 mg PO DAILY [facility] Stop: 12/01/18 08:59 Last Admin: 11/01/18 08:35 Dose: 50 mg Documented by: [id number] Tamsulosin HCl (Flomax) 0.4 mg PO HS [facility] Stop: 12/01/18 20:59 Last Admin: 11/01/18 20:12 Dose: 0.4 mg Documented by: [id number] Triamcinolone Acetonide (Nasacort) 1 sprays NA DAILY [facility] Stop: 12/01/18 08:59 Last Admin: 11/01/18 08:36 Dose: 1 sprays Documented by: [id number] Verapamil HCl (Calan Sr) 120 mg PO QPM JOHANA Stop: 12/01/18 20:59 Last Admin: 11/01/18 20:12 Dose: 120 mg Documented by: [id number] Discontinued Medications Al Hydrox/Mg Hydrox/Simethicone (Maalox) Confirm Administered Dose 30 ml .ROUTE .STK-MED ONE Stop: 11/01/18 10:50 Last Admin: 11/01/18 11:54 Dose: Not Given Documented by: [id number] Potassium Chloride (K Conner / Wtr) 10 meq in 100 mls @ 100 mls/hr IV Q1H JOHANA Stop: 10/31/18 23:29 Last Infusion: 11/01/18 00:04 Dose: 0 mls/hr Documented by: [id number] Admin: 10/31/18 23:00 Dose: 100 mls/hr Documented by: [id number] Infusion: 10/31/18 22:55 Dose: 0 mls/hr Documented by: [id number] Admin: 10/31/18 21:54 Dose: 100 mls/hr Documented by: [id number] Piperacillin Sod/Tazobactam Sod (Zosyn) 4.5 gm in 120 mls @ 240 mls/hr IV NOW ONE Stop: 10/31/18 22:09 Last Infusion: 10/31/18 23:09 Dose: 0 mls/hr Documented by: [id number] Admin: 10/31/18 22:11 Dose: 240 mls/hr Documented by: [id number] Levofloxacin/Dextrose (Levaquin/D5w) 750 mg in 150 mls @ 100 mls/hr IV NOW STA Stop: 10/31/18 23:09 Last Infusion: 10/31/18 23:41 Dose: 0 mls/hr Documented by: [id number] Admin: 10/31/18 22:10 Dose: 100 mls/hr Documented by: [id number] Methylprednisolone 20 mg/ (Syringe) 0.32 mls @ 1.5 mls/min IV NOW STA Stop: 10/31/18 22:28 Last Admin: 10/31/18 23:24 Dose: 1.5 mls/min Documented by: [id number] Potassium Chloride/Sodium Chloride (Normal Saline W/20 Meq Kcl) 20 meq in 1,000 mls @ 500 mls/hr IV .Q2H ONE Stop: 11/01/18 00:25 Last Infusion: 11/01/18 01:11 Dose: 0 mls/hr Documented by: [id number] Admin: 10/31/18 23:08 Dose: 500 mls/hr Documented by: [id number] Potassium Chloride/Sodium Chloride (Normal Saline W/20 Meq Kcl) 20 meq in 1,000 mls @ 80 mls/hr IV .[id number] ONE Stop: 11/01/18 16:29 Last Infusion: 11/01/18 16:27 Dose: 0 mls/hr Documented by: [id number] Admin: 11/01/18 03:46 Dose: 80 mls/hr Documented by: [id number] Magnesium Sulfate/Dextrose (Magnesium Sulfate / D5w) 1 gm in 100 mls @ 100 mls/hr IV ONE ONE Stop: 11/01/18 04:30 Last Infusion: 11/01/18 04:52 Dose: 0 mls/hr Documented by: [id number] Admin: 11/01/18 03:46 Dose: 100 mls/hr Documented by: [id number] Ioversol (Optiray 320 125ml) 120 ml IV ONCE PRN PRN Reason: Interaction Checking Stop: 11/04/18 21:16 Last Admin: 10/31/18 21:17 Dose: 120 ml Documented by: [id number] Levalbuterol HCl (Xopenex 1.25mg/3ml Neb) 1.25 mg NEB NOW STA Stop: 10/31/18 20:08 Last Admin: 10/31/18 20:50 Dose: 1.25 mg Documented by: [id number] Lorazepam (Ativan) 0.25 mg PO NOW STA Stop: 11/01/18 20:26 Last Admin: 11/01/18 21:17 Dose: 0.25 mg Documented by: [id number] Metoclopramide HCl (Reglan) 10 mg IV NOW STA Stop: 10/31/18 21:19 Last Admin: 10/31/18 21:52 Dose: 10 mg Documented by: [id number] Morphine Sulfate (Morphine Sulfate) 6 mg IV NOW STA Stop: 10/31/18 20:49 Last Admin: 10/31/18 20:57 Dose: 6 mg Documented by: [id number] Ondansetron HCl (Zofran) 4 mg IV NOW STA Stop: 10/31/18 20:49 Last Admin: 10/31/18 20:57 Dose: 4 mg Documented by: [id number] Potassium Chloride (Klor-Con M10) 40 meq PO NOW STA Stop: 10/31/18 21:19 Last Admin: 10/31/18 21:53 Dose: 40 meq Documented by: [id number] Potassium Chloride (Klor-Con M20) 40 meq PO NOW STA Stop: 10/31/18 22:25 Last Admin: 10/31/18 23:24 Dose: 40 meq Documented by: [id number] Medical Decision Making Differential Diagnosis Differential Diagnosis includes: viral syndrome, otitis, pharyngitis, pneumonia, influenza, meningitis, urinary tract infection, septic arthritis, soft tissue infectious process, intra-abdominal process, sepsis, bacteremia, as well as others were entertained. Medical Records Attestation: I reviewed the patient's medical records. Home Medications Current Medication List: was personally reviewed by me Laboratory Data Attestation: I reviewed the patient's lab results. Result diagrams: 11/01/18 05:49 11/01/18 05:49 Lab Results 10/31/18 10/31/18 10/31/18 Range/Units 20:07 20:23 20:23 WBC 11.53 H (4.8-10.8) K/uL RBC 4.88 (4.7-6.1) M/uL Hgb 15.2 (14.0-18.0) g/dL POC Hgb (14.0-18.0) g/dl Hct 42.4 (42-52) % POC Hct (42-52) % MCV 86.9 (80-100) fL MCH 31.1 (25-34) pg MCHC 35.8 (32-36) g/dL RDW Std Deviation 43.1 (36.4-46.3) fL RDW Coeff of Valentino 13.6 (11.5-14.5) % Plt Count 149 (130-400) K/uL MPV 11.4 H (7.4-10.4) fL Immature Gran % (Auto) 0.3 % Neut % (Auto) 89.4 % Lymph % (Auto) 7.4 % Sully % (Auto) 2.4 % Eos % (Auto) 0.3 % Baso % (Auto) 0.2 % Immature Gran # (Auto) 0.04 H (0.00-0.02) K/uL Neut # (Auto) 10.31 H (1.4-6.5) K/uL Lymph # (Auto) 0.85 L (1.2-3.4) K/uL Sully # (Auto) 0.28 (0.11-0.59) K/uL Eos # (Auto) 0.03 (0-0.5) K/uL Baso # (Auto) 0.02 (0-0.2) K/uL PT 11.0 (9.0-12.0) Seconds INR 1.1 (0.9-1.1) APTT 25.6 (21.0-31.0) Seconds PTT Ratio 0.9 ABG pH (7.35-7.45) ABG pCO2 (35-46) mmHg ABG pO2 (80-95) mm/Hg ABG HCO3 (19-24) mmol/L ABG O2 Saturation (90-95) % ABG Base Excess (-9-1.8) mEq/L Ole Test (Pos) Oxygen Given POC Sodium (135-144) mEq/L Sodium (136-145) mmol/L POC Potassium (3.3-5.0) mEq/L Potassium (3.5-5.1) mmol/L POC Chloride (101-112) mEq/L Chloride (98-107) mmol/L Carbon Dioxide (21-32) mmol/L POC Total CO2 (24-31) mEq/l Anion Gap (3-11) POC Anion Gap (16-25) mmol/L POC BUN (7-18) mg/dl BUN (7-18) mg/dl Creatinine (0.6-1.4) mg/dl POC Creatinine (0.6-1.3) mg/dl Est Cr Clr Drug Dosing ml/min Est GFR ( Amer) Est GFR (Non-Af Amer) BUN/Creatinine Ratio (10-20) Glucose (70-99) mg/dl POC Glucose (other) (70-99) mg/dl POC Lactic Acid Adarsh (0.90-1.70) mmol/L Calcium (8.5-10.1) mg/dl POC Ioniz Calcium Ruben (1.12-1.32) mmol/l Magnesium (1.8-2.4) mg/dl Total Bilirubin (0.2-1) mg/dl AST (15-37) U/L ALT (12-78) U/L Alkaline Phosphatase (45-117) U/L Total Creatine Kinase (39-308) U/L CK-MB (CK-2) (0.5-3.6) ng/ml CK/CKMB % Calc Troponin I (0-0.045) ng/ml Total Protein (6.4-8.2) gm/dl Albumin (3.4-5.0) gm/dl Globulin (2.5-4.0) gm/dl Albumin/Globulin Ratio (0.9-2) TSH (0.300-4.500) uIu/ml Free T4 (0.8-1.6) ng/dl Total T3 (0.60-1.81) ng/ml Urine Color Urine Appearance (Clear) Urine pH (4.5-7.5) Ur Specific Madison (1.000-1.030) Urine Protein (Negative) Urine Glucose (UA) (Negative) Urine Ketones (Negative) Urine Blood (Negative) Urine Nitrite (Negative) Urine Bilirubin (Negative) Urine Urobilinogen (Negative) Ur Leukocyte Esterase (Negative) Influenza Type A (PCR) Neg for Influ A (Neg) Influenza Type B (PCR) Neg for Influ B (Neg) 10/31/18 10/31/18 10/31/18 Range/Units 20:23 20:25 20:26 WBC (4.8-10.8) K/uL RBC (4.7-6.1) M/uL Hgb (14.0-18.0) g/dL POC Hgb 14.3 (14.0-18.0) g/dl Hct (42-52) % POC Hct 42 (42-52) % MCV (80-100) fL MCH (25-34) pg MCHC (32-36) g/dL RDW Std Deviation (36.4-46.3) fL RDW Coeff of Valentino (11.5-14.5) % Plt Count (130-400) K/uL MPV (7.4-10.4) fL Immature Gran % (Auto) % Neut % (Auto) % Lymph % (Auto) % Sully % (Auto) % Eos % (Auto) % Baso % (Auto) % Immature Gran # (Auto) (0.00-0.02) K/uL Neut # (Auto) (1.4-6.5) K/uL Lymph # (Auto) (1.2-3.4) K/uL Sully # (Auto) (0.11-0.59) K/uL Eos # (Auto) (0-0.5) K/uL Baso # (Auto) (0-0.2) K/uL PT (9.0-12.0) Seconds INR (0.9-1.1) APTT (21.0-31.0) Seconds PTT Ratio ABG pH (7.35-7.45) ABG pCO2 (35-46) mmHg ABG pO2 (80-95) mm/Hg ABG HCO3 (19-24) mmol/L ABG O2 Saturation (90-95) % ABG Base Excess (-9-1.8) mEq/L Ole Test (Pos) Oxygen Given POC Sodium 139 (135-144) mEq/L Sodium 138 (136-145) mmol/L POC Potassium 2.8 L (3.3-5.0) mEq/L Potassium 2.8 L (3.5-5.1) mmol/L POC Chloride 103 (101-112) mEq/L Chloride 106 (98-107) mmol/L Carbon Dioxide 24 (21-32) mmol/L POC Total CO2 20 L (24-31) mEq/l Anion Gap 8.0 (3-11) POC Anion Gap 21.0 (16-25) mmol/L POC BUN 18 (7-18) mg/dl BUN 18 (7-18) mg/dl Creatinine 1.18 (0.6-1.4) mg/dl POC Creatinine 1.0 (0.6-1.3) mg/dl Est Cr Clr Drug Dosing 58.9 ml/min Est GFR ( Amer) 69.5 Est GFR (Non-Af Amer) 60.0 BUN/Creatinine Ratio 15.0 (10-20) Glucose 84 (70-99) mg/dl POC Glucose (other) 91 (70-99) mg/dl POC Lactic Acid Adarsh 1.56 (0.90-1.70) mmol/L Calcium 8.2 L (8.5-10.1) mg/dl POC Ioniz Calcium Ruben 1.15 (1.12-1.32) mmol/l Magnesium 1.7 L (1.8-2.4) mg/dl Total Bilirubin 1.4 H (0.2-1) mg/dl AST 10 L (15-37) U/L ALT 18 (12-78) U/L Alkaline Phosphatase 79 (45-117) U/L Total Creatine Kinase 85 (39-308) U/L CK-MB (CK-2) < 1.0 (0.5-3.6) ng/ml CK/CKMB % Calc TNP Troponin I < 0.015 (0-0.045) ng/ml Total Protein 6.5 (6.4-8.2) gm/dl Albumin 3.3 L (3.4-5.0) gm/dl Globulin 3.2 (2.5-4.0) gm/dl Albumin/Globulin Ratio 1.0 (0.9-2) TSH 0.143 L (0.300-4.500) uIu/ml Free T4 (0.8-1.6) ng/dl Total T3 (0.60-1.81) ng/ml Urine Color Urine Appearance (Clear) Urine pH (4.5-7.5) Ur Specific Madison (1.000-1.030) Urine Protein (Negative) Urine Glucose (UA) (Negative) Urine Ketones (Negative) Urine Blood (Negative) Urine Nitrite (Negative) Urine Bilirubin (Negative) Urine Urobilinogen (Negative) Ur Leukocyte Esterase (Negative) Influenza Type A (PCR) (Neg) Influenza Type B (PCR) (Neg) 10/31/18 10/31/18 11/01/18 Range/Units 23:34 23:36 05:49 WBC 20.85 H (4.8-10.8) K/uL RBC 4.86 (4.7-6.1) M/uL Hgb 14.9 (14.0-18.0) g/dL POC Hgb (14.0-18.0) g/dl Hct 43.1 (42-52) % POC Hct (42-52) % MCV 88.7 (80-100) fL MCH 30.7 (25-34) pg MCHC 34.6 (32-36) g/dL RDW Std Deviation 45.2 (36.4-46.3) fL RDW Coeff of Valentino 14.0 (11.5-14.5) % Plt Count 152 (130-400) K/uL MPV 11.6 H (7.4-10.4) fL Immature Gran % (Auto) 0.5 % Neut % (Auto) 93.4 % Lymph % (Auto) 2.6 % Sully % (Auto) 3.5 % Eos % (Auto) 0.0 % Baso % (Auto) 0.0 % Immature Gran # (Auto) 0.10 H (0.00-0.02) K/uL Neut # (Auto) 19.45 H (1.4-6.5) K/uL Lymph # (Auto) 0.55 L (1.2-3.4) K/uL Sully # (Auto) 0.74 H (0.11-0.59) K/uL Eos # (Auto) 0.00 (0-0.5) K/uL Baso # (Auto) 0.01 (0-0.2) K/uL PT (9.0-12.0) Seconds INR (0.9-1.1) APTT (21.0-31.0) Seconds PTT Ratio ABG pH 7.41 (7.35-7.45) ABG pCO2 36 (35-46) mmHg ABG pO2 68 L (80-95) mm/Hg ABG HCO3 22 (19-24) mmol/L ABG O2 Saturation 93.5 (90-95) % ABG Base Excess -2.0 (-9-1.8) mEq/L Ole Test Pos (Pos) Oxygen Given 2L POC Sodium (135-144) mEq/L Sodium (136-145) mmol/L POC Potassium (3.3-5.0) mEq/L Potassium (3.5-5.1) mmol/L POC Chloride (101-112) mEq/L Chloride (98-107) mmol/L Carbon Dioxide (21-32) mmol/L POC Total CO2 (24-31) mEq/l Anion Gap (3-11) POC Anion Gap (16-25) mmol/L POC BUN (7-18) mg/dl BUN (7-18) mg/dl Creatinine (0.6-1.4) mg/dl POC Creatinine (0.6-1.3) mg/dl Est Cr Clr Drug Dosing ml/min Est GFR ( Amer) Est GFR (Non-Af Amer) BUN/Creatinine Ratio (10-20) Glucose (70-99) mg/dl POC Glucose (other) (70-99) mg/dl POC Lactic Acid Adarsh (0.90-1.70) mmol/L Calcium (8.5-10.1) mg/dl POC Ioniz Calcium Ruben (1.12-1.32) mmol/l Magnesium (1.8-2.4) mg/dl Total Bilirubin (0.2-1) mg/dl AST (15-37) U/L ALT (12-78) U/L Alkaline Phosphatase (45-117) U/L Total Creatine Kinase (39-308) U/L CK-MB (CK-2) (0.5-3.6) ng/ml CK/CKMB % Calc Troponin I (0-0.045) ng/ml Total Protein (6.4-8.2) gm/dl Albumin (3.4-5.0) gm/dl Globulin (2.5-4.0) gm/dl Albumin/Globulin Ratio (0.9-2) TSH (0.300-4.500) uIu/ml Free T4 (0.8-1.6) ng/dl Total T3 (0.60-1.81) ng/ml Urine Color Yellow Urine Appearance Clear (Clear) Urine pH 5.5 (4.5-7.5) Ur Specific [place] > 1.045 H (1.000-1.030) Urine Protein Negative (Negative) Urine Glucose (UA) Negative (Negative) Urine Ketones Negative (Negative) Urine Blood Negative (Negative) Urine Nitrite Negative (Negative) Urine Bilirubin Negative (Negative) Urine Urobilinogen Negative (Negative) Ur Leukocyte Esterase Negative (Negative) Influenza Type A (PCR) (Neg) Influenza Type B (PCR) (Neg) 11/01/18 11/01/18 11/01/18 Range/Units 05:49 05:49 05:49 WBC (4.8-10.8) K/uL RBC (4.7-6.1) M/uL Hgb (14.0-18.0) g/dL POC Hgb (14.0-18.0) g/dl Hct (42-52) % POC Hct (42-52) % MCV (80-100) fL MCH (25-34) pg MCHC (32-36) g/dL RDW Std Deviation (36.4-46.3) fL RDW Coeff of Valentino (11.5-14.5) % Plt Count (130-400) K/uL MPV (7.4-10.4) fL Immature Gran % (Auto) % Neut % (Auto) % Lymph % (Auto) % Sully % (Auto) % Eos % (Auto) % Baso % (Auto) % Immature Gran # (Auto) (0.00-0.02) K/uL Neut # (Auto) (1.4-6.5) K/uL Lymph # (Auto) (1.2-3.4) K/uL Sully # (Auto) (0.11-0.59) K/uL Eos # (Auto) (0-0.5) K/uL Baso # (Auto) (0-0.2) K/uL PT (9.0-12.0) Seconds INR (0.9-1.1) APTT (21.0-31.0) Seconds PTT Ratio ABG pH (7.35-7.45) ABG pCO2 (35-46) mmHg ABG pO2 (80-95) mm/Hg ABG HCO3 (19-24) mmol/L ABG O2 Saturation (90-95) % ABG Base Excess (-9-1.8) mEq/L Ole Test (Pos) Oxygen Given POC Sodium (135-144) mEq/L Sodium 141 (136-145) mmol/L POC Potassium (3.3-5.0) mEq/L Potassium 4.4 D (3.5-5.1) mmol/L POC Chloride (101-112) mEq/L Chloride 111 H (98-107) mmol/L Carbon Dioxide 22 (21-32) mmol/L POC Total CO2 (24-31) mEq/l Anion Gap 8.0 (3-11) POC Anion Gap (16-25) mmol/L POC BUN (7-18) mg/dl BUN 16 (7-18) mg/dl Creatinine 1.22 (0.6-1.4) mg/dl POC Creatinine (0.6-1.3) mg/dl Est Cr Clr Drug Dosing 57.0 ml/min Est GFR ( Amer) 66.8 Est GFR (Non-Af Amer) 57.6 BUN/Creatinine Ratio 12.7 (10-20) Glucose 129 H (70-99) mg/dl POC Glucose (other) (70-99) mg/dl POC Lactic Acid Adarsh (0.90-1.70) mmol/L Calcium 8.4 L (8.5-10.1) mg/dl POC Ioniz Calcium Ruben (1.12-1.32) mmol/l Magnesium 2.3 (1.8-2.4) mg/dl Total Bilirubin (0.2-1) mg/dl AST (15-37) U/L ALT (12-78) U/L Alkaline Phosphatase (45-117) U/L Total Creatine Kinase (39-308) U/L CK-MB (CK-2) (0.5-3.6) ng/ml CK/CKMB % Calc Troponin I (0-0.045) ng/ml Total Protein (6.4-8.2) gm/dl Albumin (3.4-5.0) gm/dl Globulin (2.5-4.0) gm/dl Albumin/Globulin Ratio (0.9-2) TSH 0.137 L (0.300-4.500) uIu/ml Free T4 1.35 (0.8-1.6) ng/dl Total T3 0.60 (0.60-1.81) ng/ml Urine Color Urine Appearance (Clear) Urine pH (4.5-7.5) Ur Specific [place] (1.000-1.030) Urine Protein (Negative) Urine Glucose (UA) (Negative) Urine Ketones (Negative) Urine Blood (Negative) Urine Nitrite (Negative) Urine Bilirubin (Negative) Urine Urobilinogen (Negative) Ur Leukocyte Esterase (Negative) Influenza Type A (PCR) (Neg) Influenza Type B (PCR) (Neg) Imaging Data Radiologist's Impression: Radiology results as stated below per my review and the radiologist's interpretation: SINGLE VIEW CHEST CLINICAL HISTORY: Sepsis. FINDINGS: An AP, portable, upright chest radiograph is compared to study dated 08/13/2015 and correlated with chest CT dated 03/25/2015. The examination is degraded by portable technique and patient rotation. The heart is enlarged and there is atherosclerotic calcification of the thoracic aorta. Pulmonary vasculature is noncongested. Emphysema and chronic interstitial thickening are similar to previous. Airspace consolidation is CT of the left lung base. No large pleural effusion or pneumothorax is seen. The skeletal structures are osteopenic. The bony thorax is grossly intact. IMPRESSION: 1. Cardiomegaly and emphysema without radiographic evidence of congestive failure. 2. Airspace consolidation is seen at the left lung base. Correlate clinically for evidence of pneumonia/aspiration pneumonitis. Radiographic follow-up to resolution is recommended. Electronically signed by: Vazquez Nieves M.D. 10/31/2018 9:[address] ANGIOGRAM OF THE CHEST; CT SCAN OF THE ABDOMEN AND PELVIS WITH IV CONTRAST CLINICAL HISTORY: Fever. Chills. Cough. Generalized abdominal pain. Nausea. COMPARISON STUDY: Chest x-ray dated 10/31/2018. Chest CT dated 03/25/2015. Abdominal CT dated 02/03/2011. TECHNIQUE: Following the IV administration of 120 of Optiray 320, CT angiogram of the chest is performed from the upper abdomen to the thoracic inlet utilizing the pulmonary embolus protocol. Images are reviewed in the axial, sagittal, coronal planes. 3-D MIPS images are created and assessed. Subsequently, CT scan of the abdomen and pelvis was performed from the lung bases to the proximal femora. Images are reviewed in the axial, sagittal, and coronal planes. IV contrast was administered without complication. A dose lowering technique was utilized adhering to the principles of ALARA. The examination is compromised by motion artifact. CT DOSE: 1036.39 mGy.cm FINDINGS: CHEST: Thyroid: Atrophic versus surgically absent. Thoracic aorta: There is atherosclerotic calcification of the thoracic aorta, w hich is normal in caliber and demonstrates standard 3-vessel arch anatomy. No dissection is seen. Pulmonary vasculature: The pulmonary trunk is normal in caliber. There are no central filling defects identified in the main or lobar pulmonary arteries to indicate pulmonary embolus. Evaluation of the segmental and subsegmental branches is significantly degraded by motion artifact. Heart: The heart is mildly enlarged and without pericardial effusion. The coronary arteries are densely calcified. Lungs and pleural spaces: Evaluation of lung parenchyma is significantly degraded by motion artifact. Emphysematous change is noted in the upper lobes. Patchy airspace consolidation is seen at both lung bases, left greater than right. No pleural effusion is identified. The trachea and central airways are clear. Mediastinum: There is no mediastinal lymphadenopathy. Liss: Enlarged right hilar node measures 2 cm in short axis. Axillae: There is no axillary lymphadenopathy. Bony thorax: The skeletal structures are osteopenic. No lytic or blastic lesions are identified. ABDOMEN AND PELVIS: Liver: The contrast-enhanced liver is normal in size, contour, and attenuation. There is no intrahepatic or ductal dilatation. The hepatic veins and portal veins are patent. There are least 2 cysts in the left lobe which measure up to 1.8 cm. Gallbladder: Unremarkable. Spleen: Normal in size and attenuation. Pancreas: Unremarkable. Adrenal glands: Unremarkable. Kidneys: The contrast enhanced kidneys demonstrate cortical atrophy and are without hydronephrosis. The kidneys enhance symmetrically. Parapelvic cyst on the right are similar to previous. Abdominal vasculature: The abdominal aorta is normal in course and caliber noting advanced atherosclerotic calcification. Bowel: There is mild colonic diverticulosis without CT evidence of acute diverticulitis. Colonic fecal retention is observed. The appendix is not identified and reported surgically absent. There is a small duodenal div erticulum. Peritoneum: There is no intraperitoneal free air or abdominal ascites. There is a fat-containing umbilical hernia. Lymphadenopathy: None. Pelvic viscera: The prostate gland is mildly enlarged and heterogeneous. Brachytherapy seeds are noted. The bladder wall is mildly thickened and tra beculated indicating chronic outlet obstruction. Skeletal structures: The skeletal structures are osteopenic. There is [id number] lumbosacral spondylosis. No lytic or blastic lesions are seen. IMPRESSION: 1. Motion compromised examination. 2. There is no evidence of central pulmonary embolus in the main, lobar, or segmental pulmonary arteries. 3. Cardiomegaly and emphysema. 4. Patchy airspace consolidation is seen at both lung bases, left greater than right. The appearance is typical for pneumonia/aspiration pneumonitis. Clinical correlation will be required and radiographic follow-up to resolution is recommended. 5. There are no acute infectious or inflammatory findings in the abdomen or pelvis. 6. Mild colonic diverticulosis without CT evidence of acute diverticulitis. 7. Additional findings as above. Electronically signed by: Vazquez Nieves M.D. 10/31/2018 9:30 PM ECG Data Attestation: I personally reviewed and interpreted this ECG as follows: Indication: chest pain Rate (beats per minute): 107 Rhythm: sinus tachycardia Findings: + other (old inferior infarct); no ST depression and no ST elevation Blood Pressure Blood Pressure Findings: Low blood pressure Blood Pressure Disposition: further management by hospitalist MDM Narrative This is a 77-year-old male who presents emergency department complaining of chest pain as well as aches and pains. Due to the nature of the patient's previous injury he was sent for a CAT scan of the chest as well as abdomen pelvis. CAT scan of the chest is concerning for bilateral pneumonia. Blood cultures were obtained and the patient was started on IV antibiotics including Zosyn and Levaquin. I did discuss the case with the hospitalist service who agreed to admit patient. Patient and family were in agreement with the treatment plan. Impression & Plan Pneumonia Discharge Plan Visit Data *Final* Discharge Date/Time: 11/01/18 00:57 Chief Complaint: Illness Stated Complaint: CHILLS, PAINS ALL OVER, NAUSEA, COUGH ED Provider: Florin Waller Discharge Problem: Pneumonia Patient Disposition: Admitted As Inpatient Discharge Instructions Interventions: ED Discharge Assessment Last Done: 11/01/18 00:10 Discharge Problem: Pneumonia Qualifiers: Pneumonia type: due to unspecified organism Laterality: bilateral The scribe's documentation has been prepared under my direction and personally r eviewed by me in its entirety. I confirm that the note above accurately reflects all work, treatment, procedures, and medical decision making performed by me.
[2018-11-02] MEDS ORDERED: LEVOTHYROXINE SODIUM 137 MCG TABLET PO SCH (06:30)
[2018-11-02] MEDS: FLUTICASONE/SALMETEROL 250/50 (ADVAIR) 14 PUFF/1 INHALER INH SCH (08:13)
[2018-11-02] MEDS: guaiFENesin 600 MG TABCR PO PRN (08:13)
[2018-11-02] MEDS: TRIAMCINOLONE ACET NASAL SPRAY 10.8ML BTL SCH (08:13)
[2018-11-02] MEDS: POTASSIUM CHLORIDE 10 MEQ TABCR PO SCH (08:14)
[2018-11-02] MEDS: LOSARTAN POTASSIUM 50 MG TAB PO SCH (08:14)
[2018-11-02] MEDS: LORATADINE 10 MG TAB PO SCH (08:15)
[2018-11-02] MEDS: SERTRALINE HCL 50 MG TABLET PO SCH (08:15)
[2018-11-02] MEDS: ATORVASTATIN 20 MG TAB PO SCH (08:15)
[2018-11-02] MEDS: DOCUSATE SODIUM 100 MG CAP PO SCH (08:15)
[2018-11-02 09:38] LABS: Basophils # (auto) 0.01 K/uL (0-0.2); Basophils % (auto) 0.1 %; Eosinophils # (auto) 0.05 K/uL (0-0.5); Eosinophils % (auto) 0.3 %; Hematocrit (blood only) 39.7 % (42-52); Hemoglobin 13.4 g/dL (14.0-18.0); Immature Granulocytes # (auto) 0.06 K/uL (0.00-0.02); Immature Granulocytes % (auto) 0.4 %; Lymphocytes # (auto) 1.07 K/uL (1.2-3.4); Lymphocytes % (auto) 6.8 %; Mean Corpuscular Hgb Conc 33.8 g/dL (32-36); Mean Corpuscular Volume 90.2 fL (80-100); Mean Platelet Volume 11.6 fL (7.4-10.4); Monocytes # (auto) 0.95 K/uL (0.11-0.59); Neutrophils # (auto) 13.64 K/uL (1.4-6.5); Neutrophils % (auto) 86.4 %; Platelet Count 153 K/uL (130-400); RDW Coefficient of Variation 14.6 % (11.5-14.5); White Blood Count 15.78 K/uL (4.8-10.8)
[2018-11-02 10:03] LABS: BUN Creatinine Ratio 17.5 (10-20); Calcium 8.5 mg/dl (8.5-10.1); Creatinine Clr Calc Pharmacy 63.5 ml/min; Est GFR (African American) 75.7; Est GFR (Non-African American) 65.3; Potassium 3.6 mmol/L (3.5-5.1)
--- NOTE | 2018-11-02 10:09 | XRay Report ---
TWO VIEW CHEST CLINICAL HISTORY: Pneumonia. FINDINGS: PA and lateral chest radiographs are compared to chest x-ray and chest CT dated 10/31/2018. The heart is enlarged and there is atherosclerotic calcification of the thoracic aorta. The pulmonary vasculature is noncongested. Emphysema and chronic interstitial thickening are similar to previous. Patchy airspace consolidations again seen at both lung bases, left greater than right. There is no pl eural effusion or pneumothorax. The skeletal structures are osteopenic. The bony thorax appears intac t. IMPRESSION: 1. Cardiomegaly and emphysema. 2. There is bibasilar airspace consolidation, left greater than right. The appearance remains typical for pneumonia/aspiration pneumonitis. Continued radiographic follow-up to resolution is recommended. Electronically signed by: Vazquez Nieves M.D. 11/02/2018 10:07 AM
--- NOTE | 2018-11-02 11:06 | Hospitalist Progress Note ---
Date of Service November 02, 2018 Assessment & Plan (1) Acute hypoxemic respiratory failure: Likely secondary to aspiration pneumonia, denies any problem with swallowing but has had nausea vomiting prior to this event Doubt any sepsis sepsis Clinically a lot better today Increased white count likely secondary to steroid We will continue current medications Clinically a lot better and the patient is ambulating well without any difficulty Repeat white count improved Repeat chest x-ray did not show bibasilar infiltrate more on the right than the left but not any worse compared to prior He will be discharged this afternoon CAD as per records Denies any cardiac symptoms Hypertension, BP on the lower side Blood pressure has been stabilized H/P bilateral PE status post anti-coagulation Not on any anticoagulation right now BPH/prostate cancer as per records Continue current medication Denies any problem with urination Hypothyroidism, TSH noted to be low Continue replacement Loose stools rule out C. difficile-pending for now past tobacco abuse PT OT eval DVT prophylaxis. Lovenox subcu Full code Discharge this afternoon Subjective 11/01 The patient was seen and examined the medical telemetry unit Is a 77-year-old male significant past medical history of pulmonary embolism, COPD/asthma, hypertension was admitted with bibasilar pneumonia suspected to be secondary to aspiration Clinically a lot better today Complains to have some shortness of breath and wheezing at rest denies any other symptoms 11/02 The patient was seen and examined in medical floor He has been doing a lot better Only symptom he complaint is cough Has been ambulating well without any difficulty Review of Systems Review of Systems: Other (All systems reviewed and are unremarkable except as noted below) Respiratory: + cough; no dyspnea, no dyspnea on exertion and no wheezing Physical Exam Physical Exam: No acute distress at rest Constitutional: WD/WN, vitals as above Eyes: PERRL, conjunctivae normal, anicteric sclerae ENMT: external ear and nose normal, oropharynx normal Neck: trachea midline, no thyromegaly Respiratory: normal respiratory effort; no respiratory distress, no labored breathing and does not use accessory muscles Auscultation: + crackles (Minimal crackles right base); no wheezes Cardiovascular: Rate/Rhythm: regular rate and regular rhythm Heart Sounds: normal S1 and normal S2 Gastrointestinal (Abdomen): Inspection/Auscultation: abdomen normal to inspection and normal bowel sounds Percussion/Palpation: abdomen soft; abdomen nontender Neurologic: PERRL, EOMI, accommodation nl, no face palsy, no dysarthria Results & Data Vital Signs (Past 12 Hours) Vital Signs Temp Pulse Resp BP Pulse Ox 11/02/18 07:20 36.5 C 76 18 116/66 93 11/02/18 04:00 36.8 C 84 16 105/58 L 92 11/02/18 02:08 72 16 93 Laboratory Results Short CBC 11/02/18 Range/Units 09:15 WBC 15.78 H (4.8-10.8) K/uL Hgb 13.4 L (14.0-18.0) g/dL Hct 39.7 L (42-52) % Plt Count 153 (130-400) K/uL BMP 11/02/18 09:15 Sodium 145 Potassium 3.6 D Chloride 115 H Carbon Dioxide 21 BUN 19 H Creatinine 1.10 Glucose 111 H Calcium 8.5 Medications Administered Current Inpatient Medications Acetaminophen (Tylenol) 650 mg PO Q4H PRN PRN Reason: Pain or Fever Stop: 12/01/18 00:46 Aspirin (Ecotrin Ectab) 81 mg PO HS [facility] Stop: 12/01/18 08:59 Last Admin: 11/01/18 20:12 Dose: 81 mg Documented by: Atorvastatin Calcium (Lipitor) 20 mg PO DAILY [facility] Stop: 12/01/18 08:59 Last Admin: 11/02/18 08:15 Dose: 20 mg Documented by: Docusate Sodium (Colace) 100 mg PO DAILY [facility] Stop: 12/01/18 20:24 Last Admin: 11/02/18 08:15 Dose: Not Given Documented by: Guaifenesin (Mucinex) 600 mg PO Q12H PRN PRN Reason: Congestion Stop: 12/01/18 00:46 Last Admin: 11/02/18 08:13 Dose: 600 mg Documented by: Lorazepam (Ativan) 0.25 mg in 0.5 mls @ 0.5 mls/min IV Q4H PRN PRN Reason: Anxiety/Agitation Stop: 12/01/18 00:46 Prochlorperazine 5 mg/ Syringe 5 mls @ 5 mls/min IV Q6H PRN PRN Reason: Nausea And Vomiting Stop: 12/01/18 00:46 Ampicillin Sodium/Sulbactam Sodium 3,000 mg/ Sodium Chloride 108 mls @ 216 mls/hr IV Q6H [facility] Stop: 11/08/18 01:59 Last Infusion: 11/02/18 08:52 Dose: Infused Documented by: Ipratropium [place] (Atrovent 0.02% 0.5mg/2.5ml) 0.5 mg INH Q6R [facility] Stop: 12/01/18 01:59 Last Admin: 11/02/18 06:54 Dose: 0.5 mg Documented by: Levalbuterol HCl (Xopenex 1.25mg/0.5ml Neb) 1.25 mg INH Q6R [facility] Stop: 12/01/18 01:59 Last Admin: 11/02/18 06:54 Dose: 1.25 mg Documented by: Levothyroxine Sodium (Levothyroxine Sodium) 137 mcg PO [id number] [facility] Stop: 12/02/18 06:29 Last Admin: 11/02/18 06:04 Dose: 137 mcg Documented by: Levothyroxine Sodium (Synthroid) 150 mcg PO [email or web address]@[id number] [facility] Stop: 12/01/18 06:29 Last Admin: 11/01/18 04:53 Dose: 150 mcg Documented by: Loratadine (Claritin) 10 mg PO DAILY [facility] Stop: 12/01/18 08:59 Last Admin: 11/02/18 08:15 Dose: 10 mg Documented by: Losartan Potassium (Cozaar) 100 mg PO QAM [facility] Stop: 12/01/18 08:59 Last Admin: 11/02/18 08:14 Dose: 100 mg Documented by: Miscellaneous Information (Ampicillin/Sulbactam Consult) 1 ea N/A DAILY PRN PRN Reason: Consult Stop: 12/01/18 08:59 Morphine Sulfate (Morphine Sulfate) 4 mg IV Q4H PRN PRN Reason: Pain Stop: 11/15/18 00:46 Polyethylene Glycol (Miralax Powder Packet) 17 gm PO DAILY PRN PRN Reason: Constipation Stop: 12/01/18 20:24 Last Admin: 11/01/18 21:17 Dose: 17 gm Documented by: Potassium Chloride (Klor-Con M10) 20 meq PO DAILY [facility] Stop: 12/01/18 08:59 Last Admin: 11/02/18 08:14 Dose: 20 meq Documented by: Ranitidine HCl (Zantac) 300 mg PO QPM [facility] Stop: 12/01/18 20:59 Last Admin: 11/01/18 20:12 Dose: 300 mg Documented by: Fluticasone/Salmeterol (Advair Diskus 250/50) 1 puffs INH BID [facility] Stop: 12/01/18 08:59 Last Admin: 11/02/18 08:13 Dose: 1 puffs Documented by: Sertraline HCl (Zoloft) 50 mg PO DAILY [facility] Stop: 12/01/18 08:59 Last Admin: 11/02/18 08:15 Dose: 50 mg Documented by: Tamsulosin HCl (Flomax) 0.4 mg PO HS [facility] Stop: 12/01/18 20:59 Last Admin: 11/01/18 20:12 Dose: 0.4 mg Documented by: Tramadol HCl (Ultram) 25 - 50 mg PO Q4H PRN PRN Reason: Pain Stop: 12/01/18 00:46 Triamcinolone Acetonide (Nasacort) 1 sprays NA DAILY [facility] Stop: 12/01/18 08:59 Last Admin: 11/02/18 08:13 Dose: 1 sprays Documented by: Verapamil HCl (Calan Sr) 120 mg PO QPM [facility] Stop: 12/01/18 20:59 Last Admin: 11/01/18 20:12 Dose: 120 mg Documented by:
[2018-11-02 11:32] VITALS: PULSE 56; TEMP 98.1; O2SAT 95
[2018-11-02 14:15] VITALS: BP 114/61
[2018-11-02] MEDS ORDERED: AMOXICILLIN/CLAVULANATE 875 MG TAB PO ONE (14:30)
[2018-11-02] MEDS ORDERED: AMOXICILLIN/CLAVULANATE 875 MG TAB PO SCH (17:00)
--- NOTE | 2018-11-03 08:22 | Discharge Summary ---
Date of Service November 03, 2018 Admission HPI Per Admitting Provider History obtained from patient, family, and records. Medical history significant for CAD, hypertension, history of PE status post anti-coagulation, asthma, BPH/prostate cancer, skin cancer, hypothyroidism, past tobacco abuse Recent confinement January 2015 for BPPV. Last month, patient noted chest/abdominal pain after falling on an upright log at home. Loose stools since accident as per family. Outpatient imaging unremarkable. Discomfort had subsided to be a dull discomfort as per patient. Today patient noted fever chills nausea emesis, worsening of epigastric/chest pain. Patient subsequently noted junky cough, increasing shortness of breath. At the ER, patient received Levaquin and Zosyn for pneumonia. 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 Admission Exam Per Admitting Provider Vital Signs (Past 24 Hours): Last Vital Signs Temp 37.2 C 10/31/18 19:40 Pulse 109 H 10/31/18 22:01 Resp 17 10/31/18 22:01 BP 111/57 L 10/31/18 22:01 Pulse Ox 86 L 10/31/18 21:45 Physical Exam: GENERAL: uncomfortable, pleasant, no respiratory distress SKIN: Normal color, warm HEENT: Bespectacled, pink palpebral conjunctivae, no ptosis, dry buccal mucosa NECK : Supple, no tenderness CHEST : Decreased breath sounds, occasional wheeze, no tenderness HEART : Tachycardic, no obvious murmurs ABDOMEN: Some distention, nontender EXTREMITIES : No LE swelling/tenderness, no other conspicuous deformities noted NEUROLOGIC : Coherent, no facial asymmetry, no other gross focality Principal Diagnosis Acute hypoxic respiratory failure secondary to bibasilar pneumonia possibly due to aspiration Discharge Exam Constitutional WD/WN, vitals as above well developed Eyes PERRL, conjunctivae normal, anicteric sclerae ENMT external ear and nose normal, oropharynx normal Neck trachea midline, no thyromegaly Respiratory normal respiratory effort; no respiratory distress, no labored breathing and does not use accessory muscles Auscultation: + diminished lung sounds and + crackles (Minimal crackles right base); no wheezes Cardiovascular Rate/Rhythm: regular rate and regular rhythm Heart Sounds: normal S1 and normal S2 Gastrointestinal (Abdomen) Inspection/Auscultation: abdomen normal to inspection and normal bowel sounds Percussion/Palpation: abdomen soft; abdomen nontender Neurologic PERRL, EOMI, accommodation nl, no face palsy, no dysarthria Discharge Data Allergies Allergy/AdvReac Type Severity Reaction Status Date / Time codeine AdvReac Mild N/V Verified 10/31/18 22:43 Consultations 10/31/18 21:42 ED Decision to Admit Stat Ordered Studies 10/31/18 20:12 CT abd pelvis IV con only Stat 10/31/18 21:04 CT angio chest PE protocol Stat Hospital Course (1) Acute hypoxemic respiratory failure: Likely secondary to aspiration pneumonia, denies any problem with swallowing but has had nausea vomiting prior to this event Doubt any sepsis sepsis Clinically a lot better today Increased white count likely secondary to steroid We will continue current medications Clinically a lot better and the patient is ambulating well without any difficulty Repeat white count improved Repeat chest x-ray did not show bibasilar infiltrate more on the right than the left but not any worse compared to prior He will be discharged this afternoon CAD as per records Denies any cardiac symptoms Hypertension, BP on the lower side Blood pressure has been stabilized H/P bilateral PE status post anti-coagulation Not on any anticoagulation right now BPH/prostate cancer as per records Continue current medication Denies any problem with urination Hypothyroidism, TSH noted to be low Continue replacement Loose stools rule out C. difficile-pending for now past tobacco abuse PT OT eval DVT prophylaxis. Lovenox subcu Full code Discharge this afternoon Total Time Total Time Spent Total Time Spent (In Minutes): 35 minutes Total Time Includes: Examination of the Patient, Discharge Planning, Medication Reconciliation and Communication With Other Providers Discharge Plan Discharge Items Patient Disposition: Home - Self-Care Reason For Visit: RESP FAILURE Discharge Diagnosis: Acute hypoxic respiratory failure secondary to bibasilar pneumonia possibly due to aspiration Condition: Good Discharge Goals: Decrease discomfort, Improve function and Increase independence Activity: Resume your previous activity Non-emergency contact: Primary Care Provider Call non-emergency contact if: you have any medication questions and your symptoms worsen Follow-up/Referrals: Donn Clarke MD [Primary Care Provider] - 11/08/18 11:45 am Diet: Heart Healthy Addtl Provider Instructions: Please take it easy for the next few days Prescriptions: New amoxicillin-pot clavulanate 875-125 mg Tablet 1 tab PO BIDM 7 Days Qty: 14 RF: 0 Lactinex 1 million cell tablet,chewable 1 tab PO BID Qty: 30 RF: 0 Continued levothyroxine 137 mcg Tablet 137 mcg PO 4XWK RF: 0 fluticasone propion-salmeterol [Advair Diskus] 250-50 mcg/dose Blister With Device 1 inh INHALATION BID RF: 0 atorvastatin 20 mg Tablet 20 mg PO DAILY RF: 0 ranitidine HCl 300 mg Tablet 300 mg PO QPM RF: 0 aspirin [Aspir-Low] 81 mg Tablet,Delayed Release (Dr/Ec) 81 mg PO DAILY RF: 0 tamsulosin [Flomax] 0.4 mg capsule 0.4 mg PO HS RF: 0 meclizine 25 mg Tablet 25 mg PO Q6 PRN (Reason: DIZZYNESS) RF: 0 triamcinolone acetonide 55 mcg Aerosol,[place] 1 spray INTRANASAL DAILY RF: 0 naproxen sodium [Aleve] 220 mg Tablet 220 mg PO BID PRN (Reason: Pain) RF: 0 levothyroxine [Synthroid] 150 mcg tablet 150 mcg PO 3XWK RF: 0 verapamil 240 mg Tablet Extended Release 120 mg PO QPM RF: 0 sertraline 50 mg Tablet 50 mg PO DAILY RF: 0 loratadine [Claritin] 10 mg Tablet 10 mg PO DAILY RF: 0 potassium chloride [Klor-Con M10] 10 mEq tablet,ER particles/crystals 10 meq PO DAILY RF: 0 losartan-hydrochlorothiazide 100-12.5 mg Tablet 1 tab PO DAILY RF: 0 dextran 70-hypromellose (PF) 0.1-0.3 % [place] 1 drp OPL QID PRN (Reason: Dry Eyes) RF: 0 guaifenesin [Mucinex] 600 mg Tablet Extended Release 12hr 600 mg PO Q12H PRN (Reason: Congestion) RF: 0 ipratropium-albuterol 0.5 mg-3 mg(2.5 mg base)/3 mL Solution For Nebulization 3 ml INHALATION Q4 PRN (Reason: Shortness Of Breath Or Wheezing) 30 Days Qty: 50 RF: 0 Stand-Alone Forms: [facility] Discharge Orders: Discharge Order (Routine); Ordered 11/02/18 Ordered By: Aleah Bean Admission Data Admit Date/Time: 10/31/18 23:28 Attending Provider: Aleah Bean Admit Provider: Haja Humphrey Primary Care Provider: Donn Clarke Other Providers: Haja Humphrey Service: Telemetry Medical Other Interventions: Discharge Summary Assessment (RN) Last Done: 11/02/18 14:14 DC Date/Time DO NOT enter until pt leaves facility: 11/02/18 14:46
== END 2018-11-02 14:46 | disposition home or self-care (01) | DRG 177 ==
LOC: ED 19:37 → 2N 23:28

== ENCOUNTER 2018-12-03 13:57 | Inpatient (IN) ==
--- OUTSIDE RECORDS SUMMARY | 2018-12-03 14:00 | External Medical Summary | Continuity of Care Document ---
:1940 Author Name Ron M.D. 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 Refills: 0 Losartan Potassium-HCTZ 100-12.5 MG Oral Tablet; TAKE 1 TABL ET DAILY. , M.D. Refills: 0 Mucinex 600 MG Oral Tablet Extended Rele ase 12 Hour; TAKE 1 TABLET EVERY 12 HOURS. , M.D. Refills: 0 Fluticasone Propionate SUSP; USE 2 SPRAYS IN EACH NOST RIL ONCE DAILY NEEDED , M.D. Refills: 0 Claritin 10 MG Oral Tablet; TAKE 1 TABLET DAILY. , M.D. Refills: 0 Ipratropium-Albuterol 0.5-2.5 (3) MG/3ML Inhalation Solution , M.D. Refills: 0 Acetaminophen 500 MG Oral Tablet; TAKE 1 TABLET DAILY NEE DED , M.D. Refills: 0 Potassium Chloride 10 MEQ TBCR; Take 1 tablet daily , M.D. Refills: 0 Verapamil HCl ER 240 MG Oral Capsule Ext ended Release 24 Hour; TAKE 1 CAPSULE DAILY. , M.D. Refills: 0 Meclizine HCl - 25 MG Oral Tablet; TAKE 1 TABLET EVERY 6 HOURS NEEDED. , M.D. Refills: 0 Tamsulosin HCl - 0.4 MG Oral Capsule; TAKE 1 CAPSULE Daily , M.D. Refills: 0 raNITIdine HCl - 300 MG Oral Tablet; Take 1 tablet daily , M .D. Refills: 0 Ventolin HFA AERS; INHALE 2 PUFFS EVERY 4 HOURS NEEDED , M.D. Refills: 0 Aspirin Low Dose 81 MG TABS; TAKE 1 TABLET DAILY. , M.D. Refills: 0 Atorvastatin Calcium 20 MG Oral Tablet; TAKE 1 TABLET DAILY. , M.D. Refills: 0 Levoxyl 137 MCG Oral Tablet; TAKE 1 TABLET DAILY. , M.D. Refills: 0 Procedures History of Hernia Repair Status: Complet ed History of Shoulder Surgery Status: Comp leted History of Appendectomy Status: Complete d History of Sinus Surgery Status: Complet ed History of Prostate Surgery Status: Comp leted Immunizations Influenza Comments:Approx 012 Family History Father Family history of Cancer Status: Active Mother Family history of Cancer Status: Active Social History - Smoking Status Never smoker Plan of Treatment Planned Observations Planned Goals not documented Results No Known Results Results not documented
[2018-12-03 14:32] LABS: Basophils # (auto) 0.02 K/uL (0-0.2); Basophils % (auto) 0.2 %; Eosinophils # (auto) 0.17 K/uL (0-0.5); Eosinophils % (auto) 1.6 %; Hemoglobin 14.8 g/dL (14.0-18.0); Immature Granulocytes # (auto) 0.08 K/uL (0.00-0.02); Immature Granulocytes % (auto) 0.8 %; Lymphocytes # (auto) 1.23 K/uL (1.2-3.4); Lymphocytes % (auto) 11.6 %; Mean Platelet Volume 10.5 fL (7.4-10.4); Monocytes # (auto) 1.11 K/uL (0.11-0.59); Monocytes % (auto) 10.5 %; Neutrophils # (auto) 8.01 K/uL (1.4-6.5); Neutrophils % (auto) 75.3 %; Platelet Count 176 K/uL (130-400); RDW Coefficient of Variation 13.6 % (11.5-14.5); RDW Standard Deviation 41.4 fL (36.4-46.3); Red Blood Count 4.76 M/uL (4.7-6.1); White Blood Count 10.62 K/uL (4.8-10.8)
--- NOTE | 2018-12-03 14:38 | XRay Report ---
XR chest 1V portable CLINICAL HISTORY: Chest pain. COMPARISON STUDY: Chest CT October 31, 2018. Chest radiograph November 02, 2018. FINDINGS: There is no pneumothorax or pleural effusion. Bibasilar opacities shown on exam of October are no longer identified. Cardiac size is normal. Mediastinal contours are normal. There is no evidence for pulmonary edema. IMPRESSION: 1. No acute cardiopulmonary findings. 2. Resolution of bibasilar airspace opacities shown on prior exam. Electronically signed by: Darin Naylor M.D. 12/03/2018 2:37 PM
[2018-12-03 14:43] LABS: Alanine Aminotransferase 14 U/L (12-78); Aspartate Aminotransferase 12 U/L (15-37); BUN Creatinine Ratio 9.1 (10-20); Blood Urea Nitrogen 11 mg/dl (7-18); Carbon Dioxide 19 mmol/L (21-32); Chloride 108 mmol/L (98-107); Creatinine Clr Calc Pharmacy 59.2 ml/min; Est GFR (African American) 70.3; Est GFR (Non-African American) 60.6; Glucose 86 mg/dl (70-99); INR 1.1 (0.9-1.1); Partial Thromboplastin Ratio 1.1; Potassium 2.8 mmol/L (3.5-5.1); Prothrombin Time 11.2 Seconds (9.0-12.0); Sodium 140 mmol/L (136-145)
[2018-12-03 14:47] LABS: Albumin Globulin Ratio 0.9 (0.9-2); Alkaline Phosphatase 83 U/L (45-117); Bilirubin,Total 0.7 mg/dl (0.2-1); Globulin 3.4 gm/dl (2.5-4.0); Total Protein 6.4 gm/dl (6.4-8.2); Troponin I < 0.015 ng/ml (0-0.045)
[2018-12-03] MEDS ORDERED: POTASSIUM CHLORIDE 10 MEQ TABCR PO STA (15:01)
[2018-12-03] MEDS ORDERED: ASPIRIN CHEW 324 MG PO STA (15:10)
[2018-12-03] MEDS ORDERED: POLYETHYLENE (MIRALAX) 17 GM PACK PO PRN (17:18)
[2018-12-03] MEDS ORDERED: MAGNESIUM HYDROXIDE SUSP 30 ML UDC PO PRN (17:18)
[2018-12-03] MEDS ORDERED: ALUMINUM/MAGNESIUM SUSP 30 ML UDC PO PRN (17:18)
[2018-12-03] MEDS ORDERED: ONDANSETRON INJ 2 MG/ML 2 ML VIAL IV PRN (17:18)
[2018-12-03] MEDS ORDERED: ACETAMINOPHEN 325 MG TAB PO PRN (17:18)
--- NOTE | 2018-12-03 17:22 | History & Physical Report ---
Date of Service December 03, 2018 Assessment & Plan (1) Chest pain: (2) Easy fatigability: (3) ALEXANDER (dyspnea on exertion): This is a 77-year-old male who has a significant past medical history of asthma, HTN, HLD, BPH, history of Graves' disease status post thyroidectomy now on thyroid replacement, history of prostate cancer who presents to [facility] secondary to dyspnea on exertion and chest pain x45 minutes. Initial troponin negative, ECG without ST T wave changes, inferior infarct present Continue to trend troponin Obtain echocardiogram Consult cardiology, n.p.o. after midnight and event nuclear stress test performed Obtain adequate BP control fasting lipid panel and A1C in am. (4) Hypokalemia: K 2.8 KCl 40 M EQ in ED Additional KCL krider 10meq x 4 ordered repeat K at 7pm (5) Hypertension: Blood pressure elevated during my examination Continue losartan and verapamil Hold HCTZ secondary to hypokalemia (6) Black stool: Pt reported dark tarry stool H/H Stable Check FOBT (7) Asthma: No acute exacerbation Continue Advair, as needed albuterol, nasal spray Hold Claritin, Mucinex in setting of HTN (8) Hypothyroidism: Continue levothyroxine Status post thyroidectomy secondary to Graves' disease Last TSH 12/02 WNL (9) BPH (benign prostatic hyperplasia): Continue Flomax (10) History of pulmonary embolism: Not on anticoagulants at this time Recent CTA chest in October 2018 w/o PE Disposition: D/C home when able Follow up: PCP Dr. Clarke upon discharge Patient was seen and examined in collaboration with Dr. Chen, please see addendu m History of Present Illness Chief Complaint: Dyspnea on exertion and chest pain x45 minutes. Primary Care Provider: Donn Clarke MD This is a 77-year-old male who has a significant past medical history of asthma, HTN, HLD, BPH, history of Graves' disease status post thyroidectomy now on thyroid replacement, history of prostate cancer who presents to [facility] secondary to dyspnea on exertion and chest pain x45 minutes. Multiple worried family members at bedside. P paul was standing talking to family in his home whenever family noticed him to become very, "white." They encourage him to sit down as patient was feeling lightheaded. He then was sitting in his recliner whenever he developed acute onset of shortness of breath, left-sided chest discomfort associated with tingling/numbness to left neck and arm that persisted for approximately 45 minutes. EMS was summoned. Sx improved with administration of Oxygen. Family also reports patient wasn't making sense and didn't know who the president was. Unfortunately these sx started back in late may whenever patient was out hunting when he developed similar lightheadedness, chest discomfort and ALEXANDER. Sx resolved with going back to camp and resting. Sx have been off and on but becoming progressively worse and more frequent over the past few months accordingly to family members. Normally pt would chop wood and be very active and now it is very difficult to do simple chores around the house without getting short of breath, for example making the bed. That dyspnea on exertion and easy fatigability, increased somnolence is what has been debilitating him most. He has tried prn albuterol without relief. He elicits intermittent lightheadedness specifically when walking or standing for long duration feeling like he could, "pass out." He complains of freq ALEXANDER, fatigue, easy fatigability, decreased appetite, 6 pound weight loss in 1 month, frequent loose bowel movements throughout the day. He states he normally has a normal bowel movement in the morning and then will have approximately 8-10 loose stools throughout the day and describes them as black dark and tarry. He has been having stool incontinence and this has been going on for several months. Family notes he does have a GI appointment due to his loose stools as well as stool incontinence in 2 weeks. He denies any recent fever, chills, sweats, falls, palpitations, emesis, abdominal pain. He was hospitalized here at [facility] ED October 31-2018 in which he presented with chest pain/epigastric pain, nausea, emesis, productive cough. At that time he was diagnosed with bibasilar pneumonia and treated with IV antibiotics and transition to oral course of Levaquin. He presented to outpatient urgent clinic yesterday and saw Dr. Phillips. He presented secondary to worsening shortness of breath and according to note reported cough, although patient denies this today. He was initiated on Levaquin as it was thought may be secondary to his pneumonia and he was recommended to follow-up with [employer]. Lab work done at that visit revealed TSH WNL, K3.4. Family at bedside is very concerned and states, "everyone just keeps thinking it his lung and nobody will look at his heart." 1 of his daughters who is a nurse at bedside states that she has seen a significant difference in her father in the past 3 to 6 months and is affecting his life. Patient had cardiac work-up includes nuclear stress test back in 2015 which was discontinued secondary to dyspnea but was otherwise unremarkable. He underwent cardiac catheterization at [facility] [place] years ago with no evidence of significant coronary artery disease as well as a stress test in 2013 and 2015 that was negative. He was last seen by cardiology 09/19/2015. He has a prior history of smoking but quit back in the 1970s. He states he has dealt with asthma for many years but was never formally diagnosed with COPD. Occasional alcohol use although rare. Allergies Allergy/AdvReac Type Severity Reaction Status Date / Time codeine AdvReac Mild N/V Verified 12/03/18 14:53 Home Medications Home Medications Medication Instructions Recorded Confirmed Type aspirin [Aspir-Low] 81 mg PO DAILY 10/31/18 12/03/18 History atorvastatin 20 mg PO DAILY 10/31/18 12/03/18 History dextran 70-hypromellose (PF) 1 drp OPL QID PRN 10/31/18 12/03/18 History fluticasone propion-salmeterol 1 inh INHALATION BID 10/31/18 12/03/18 History [Advair Diskus] guaifenesin [Mucinex] 600 mg PO Q12H PRN 10/31/18 12/03/18 History levothyroxine 137 mcg PO 4XWK 10/31/18 12/03/18 History levothyroxine [Synthroid] 150 mcg PO 3XWK 10/31/18 12/03/18 History loratadine [Claritin] 10 mg PO DAILY 10/31/18 12/03/18 History meclizine 25 mg PO Q6 PRN 10/31/18 12/03/18 History naproxen sodium [Aleve] 220 mg PO BID PRN 10/31/18 12/03/18 History potassium chloride [Klor-Con M10] 10 meq PO DAILY 10/31/18 12/03/18 History ranitidine HCl 300 mg PO QPM 10/31/18 12/03/18 History sertraline 50 mg PO DAILY 10/31/18 12/03/18 History tamsulosin [Flomax] 0.4 mg PO HS 10/31/18 12/03/18 History triamcinolone acetonide 1 spray INTRANASAL DAILY 10/31/18 12/03/18 History verapamil 120 mg PO QPM 10/31/18 12/03/18 History Lactobacillus acidoph-L.bulgar 1 tab PO BID #30 tab 11/02/18 12/03/18 Rx [Lactinex] levofloxacin 750 mg PO DAILY 12/03/18 12/03/18 History losartan-hydrochlorothiazide 1 tab PO DAILY 12/03/18 12/03/18 History Past Med/Surg History Medical History History of Graves' disease (Chronic) History of thyroidectomy, total (Chronic) History of malignant melanoma of skin (Chronic) Hypothyroidism (Chronic) BPH (benign prostatic hyperplasia) (Chronic) Coronary atherosclerosis of [place] coronary artery (Chronic) History of pulmonary embolism (Chronic) Hypertension (Chronic) Asthma (Chronic) COPD (chronic obstructive pulmonary disease) (Chronic) Prostate cancer (Resolved) Status post seed implant Skin cancer (Resolved) Surgical History History of cardiac cath (Chronic) Negative per patient, no history of stenting or bypass History of vasectomy (Chronic) History of cystoscopy (Chronic) History of colonoscopy with polypectomy (Chronic) Last 11/03/2016 recommend repeat in 3 years History of basal cell carcinoma (BCC) excision (Chronic) History of hernia repair (Chronic) History of eye surgery (Chronic) History of appendectomy (Resolved) H/O rotator cuff surgery (Resolved) Status post operation on nasal sinus (Resolved) "09/2002" Family History Father Cancer Prostate and bladder Mother Stroke Breast cancer Other Family history non-contributory Social History Preferred Language: Bermudian Communication Ability: Effective Campus Wellness Coordinator Required: No Beliefs That Will Affect Care: Taoism Taoism Beliefs: Mu-Ism marital status: Current Living Situation: Spouse Feels Safe at Home: Yes Safety Concerns: Feels Safe At This Time Smoking Status: Former smoker Age Quit Using Tobacco: 27 Do You Dip or Chew Tobacco: No Smoking End Date: Quit in 1967 Number of Years Since Quit: 50 Second Hand Exposure: No Hx Alcohol Use: Yes Alcohol type: beer, wine and hard liquor Hx Substance Use: No Review of Systems Review of Systems: As noted per HPI, 10 systems reviewed and negative unless noted above. Physical Exam Physical Exam: Gen: WD/WN, M, NAD, sitting up in bed, pleasant, conversing easily Head: Normocephalic, Atraumatic Eyes: Sclera normal, no conjunctival injection, PERRLA, EOMI ENT: Gross hearing intact, normal pharynx, mucous membranes moist Neck: supple, no adenopathy, No JVD, no bruit, Resp: Clear to auscultation b/l, no wheeze, rales, rhonchi. 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 Extremities: No edema bilaterally Skin: warm, moist, no rash, negative turgor, cap refill < 2sec, BCC excision on medial aspect of right calf Neuro: Alert and oriented x 3, speech normal, good mood/affect, cran nerve 2-12 intact grossly : deferred Results & Data Vital Signs (Past 12 Hours) Vital Signs Temp Pulse Pulse Resp BP BP Pulse Ox 12/03/18 17:05 88 18 146/84 H 97 12/03/18 15:28 88 18 172/77 H 97 12/03/18 14:27 89 19 97 12/03/18 14:02 36.7 C 89 19 153/86 H 97 Laboratory Results Short CBC 12/03/18 Range/Units 14:12 WBC 10.62 (4.8-10.8) K/uL Hgb 14.8 (14.0-18.0) g/dL Hct 40.0 L (42-52) % Plt Count 176 (130-400) K/uL BMP 12/03/18 14:12 Sodium 140 Potassium 2.8 L Chloride 108 H Carbon Dioxide 19 L BUN 11 Creatinine 1.17 Glucose 86 Calcium 9.0 Cardiac Enzymes 12/03/18 Range/Units 14:12 Troponin I < 0.015 (0-0.045) ng/ml Liver Function 12/03/18 Range/Units 14:12 Total Bilirubin 0.7 (0.2-1) mg/dl AST 12 L (15-37) U/L ALT 14 (12-78) U/L Alkaline Phosphatase 83 (45-117) U/L Albumin 3.0 L (3.4-5.0) gm/dl Diagnostic Findings CXR: IMPRESSION: 1. No acute cardiopulmonary findings. 2. Resolution of bibasilar airspace opacities shown on prior exam. Medications Administered Discontinued Medications Aspirin (Aspirin) 324 mg PO NOW STA Stop: 12/03/18 15:11 Last Admin: 12/03/18 15:17 Dose: 324 mg Documented by: [id number] Potassium Chloride (Klor-Con M10) 40 meq PO NOW STA Stop: 12/03/18 15:02 Last Admin: 12/03/18 15:17 Dose: 40 meq Documented by: [id number] ECG Rate (beats per minute): 83 Rhythm: normal sinus Findings: + Q waves (Inferior) Code Status & VTE Plan Code Status Full code VTE Prophylaxis Plan VTE Prophylaxis will be ordered: Yes Supervising Physician Co-Signing Physician Notes I have seen the patient with physician integration assistant and agree with the assessment and plan as above and would like to add: On physical Exam General: no acute distress Lungs: clear to auscultation bilaterally Heart: regular, regular rhythm Abdomen: soft, nontender, bowel sounds positive Extremities: no edema Neuro: no focal neurological deficits Psych: awake and alert and oriented x 3 That patients chief complaint is chest pain that was accompanied by left arm pain and shakiness which he describes as lasting for 40 minutes; also complain about dyspnea on exertion in recent weeks Chest pain Dyspnea (Shortness of breath) with exertion -chest pain symptoms resolved while in the hospital -initial troponin negative, trend troponins -obtain echocardiogram -obtain cardiology consult, npo after midnight in case any cardiac testing besides resting echocardiogram -blood pressure control Hypertension -continue home dose losartan as 100 mg daily -continue verapamil -hold off HCTZ because of hypokalemia Hypokalemia Hypomagnesemia -serum potassium 2.8 on presentation -oral potassium of 40 meq given by ED provider, continue with IV potassium supplements and recheck serum potassium levels -serum magnesium mildly low as 1.8 and will give oral and IV magnesium Diarrhea/loose stools -FOBT positive, however the hemoglobin is table -follow up stool cultures and c.difficile Hypothyroidism -had radiation to thyroid in the past to treat Graves disease -has been on Levothyroxine at home -continue home dose levothyroxine Asthma History as per patient -denies smoking for many years -does not have diagnosis of COPD but there is emphysema seen on CTA chest in October 2018 (1) Chest pain Chest pain type: unspecified Qualified Code(s): R07.9 - Chest pain, unspecified
[2018-12-03] MEDS: POTASSIUM CHLORIDE / WTR 10 MEQ/100 ML PLCT IV SCH ×3 (18:16→22:45)
--- NOTE | 2018-12-03 19:12 | Emergency Department Note ---
Entered by Viki Willard acting as a scribe for History of Present Illness General Chief complaint: Chest Pain Time Seen by Provider: 12/03/18 14:44 Source: patient History of Present Illness Onset (ago): hour(s) 3 Location: chest Pain Consistency: + other (episode) Maximum Pain Intensity: 0 Exacerbated By: + other (exertion) Associated symptoms: + denies other symptoms ( loss of consciousness, hitting his head, hemoptysis, hematochezia, hematuria) and + other (fatigue, diarrhea, melena, lightheaded, deep breathing, numbness, pale and carvalho); no nausea/vomiting (vomiting) and no shortness of breath The patient is a 77 year old male who presents to the ED with complaints of an e pisode of chest pain starting 3 hours ago. The patients daughter states that recently the patient has become more tired than normal with short amount of exertion. She states that he has been sleeping more and hasnt been able to walk across the room without becoming so drained he has to sit down. The patient states that this all started after he had an episode of shortness of breath and chest pain in the fall while hanging his tree stand. He states that since then he has intermittent lightheadedness and fatigue. He reports that recently the episodes have been getting closer and closer together. The patient states that today he went to get up from his [employer] to go to the bathroom when he became lightheaded. He states that he started to breathe really hard and had to hold himself up against the kitchen table. He reports that he started to experience numbness in his face and arms. His daughter notes that he was very pale at this time. She notes that recently he has looked carvalho in color, but all of his vitals have been normal and up until this episode he has not been short of breath. The patient complains of diarrhea and melena. The patient denies loss of consciousness, hitting his head, vomiting, hemoptysis, hematochezia, and hematuria. His notes that he is being treated currently for pneumonia. Home Medications Home Medications Medication Instructions Recorded Confirmed Type aspirin [Aspir-Low] 81 mg PO DAILY 10/31/18 12/03/18 History atorvastatin 20 mg PO DAILY 10/31/18 12/03/18 History dextran 70-hypromellose (PF) 1 drp OPL QID PRN 10/31/18 12/03/18 History fluticasone propion-salmeterol 1 inh INHALATION BID 10/31/18 12/03/18 History [Advair Diskus] guaifenesin [Mucinex] 600 mg PO Q12H PRN 10/31/18 12/03/18 History levothyroxine 137 mcg PO 4XWK 10/31/18 12/03/18 History levothyroxine [Synthroid] 150 mcg PO 3XWK 10/31/18 12/03/18 History loratadine [Claritin] 10 mg PO DAILY 10/31/18 12/03/18 History meclizine 25 mg PO Q6 PRN 10/31/18 12/03/18 History naproxen sodium [Aleve] 220 mg PO BID PRN 10/31/18 12/03/18 History potassium chloride [Klor-Con M10] 10 meq PO DAILY 10/31/18 12/03/18 History ranitidine HCl 300 mg PO QPM 10/31/18 12/03/18 History sertraline 50 mg PO DAILY 10/31/18 12/03/18 History tamsulosin [Flomax] 0.4 mg PO HS 10/31/18 12/03/18 History triamcinolone acetonide 1 spray INTRANASAL DAILY 10/31/18 12/03/18 History verapamil 120 mg PO QPM 10/31/18 12/03/18 History Lactobacillus acidoph-L.bulgar 1 tab PO BID #30 tab 11/02/18 12/03/18 Rx [Lactinex] levofloxacin 750 mg PO DAILY 12/03/18 12/03/18 History losartan-hydrochlorothiazide 1 tab PO DAILY 12/03/18 12/03/18 History Allergies Allergy/AdvReac Type Severity Reaction Status Date / Time codeine AdvReac Mild N/V Verified 12/03/18 14:53 Past Med/Surg History Medical History History of Graves' disease (Chronic) History of thyroidectomy, total (Chronic) History of malignant melanoma of skin (Chronic) Hypothyroidism (Chronic) BPH (benign prostatic hyperplasia) (Chronic) Coronary atherosclerosis of [place] coronary artery (Chronic) History of pulmonary embolism (Chronic) Hypertension (Chronic) Asthma (Chronic) COPD (chronic obstructive pulmonary disease) (Chronic) Prostate cancer (Resolved) Status post seed implant Skin cancer (Resolved) Surgical History History of cardiac cath (Chronic) Negative per patient, no history of stenting or bypass History of vasectomy (Chronic) History of cystoscopy (Chronic) History of colonoscopy with polypectomy (Chronic) Last 11/03/2016 recommend repeat in 3 years History of basal cell carcinoma (BCC) excision (Chronic) History of hernia repair (Chronic) History of eye surgery (Chronic) History of appendectomy (Resolved) H/O rotator cuff surgery (Resolved) Status post operation on nasal sinus (Resolved) "09/2002" Family History Father Cancer Prostate and bladder Mother Stroke Breast cancer Other Family history non-contributory Social History Preferred Language: [place] Citizen Communication Ability: Effective 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 and A total of 10 systems reviewed and were otherwise negative Physical Exam Vital Signs Vital Signs - 24 hr 12/03/18 14:02 12/03/18 14:27 12/03/18 15:28 Temperature 36.7 C Temperature Source Oral Sepsis Recent Fever Within 48 Hours No Sepsis New/Unexplained Change in Mental Status No Sepsis Action Taken by Nursing No Action Required Pulse Rate 89 89 Pulse Rate [Apical] 88 Pulse Rhythm Regular Regular Pulse Rhythm [Apical] Regular Respiratory Rate 19 19 18 Respiratory Effort / Characteristics Non-Labored Spontaneous Non-Labored Spontaneous Respiratory Depth Normal Normal Respiratory Pattern Regular Regular Blood Pressure 153/86 H Blood Pressure [Right Arm] 172/77 H Blood Pressure Mean 108 Blood Pressure Mean [Right Arm] 108 Pulse Oximetry 97 97 97 Oxygen Delivery Method Room Air Room Air Room Air 12/03/18 15:48 Temperature Temperature Source Sepsis Recent Fever Within 48 Hours Sepsis New/Unexplained Change in Mental Status Sepsis Action Taken by Nursing Pulse Rate Pulse Rate [Apical] Pulse Rhythm Pulse Rhythm [Apical] Respiratory Rate Respiratory Effort / Characteristics Non-Labored Spontaneous Respiratory Depth Normal Respiratory Pattern Regular Blood Pressure Blood Pressure [Right Arm] Blood Pressure Mean Blood Pressure Mean [Right Arm] Pulse Oximetry Oxygen Delivery Method Room Air GENERAL: He is oriented to person, place, and time. He appears well-developed and well-nourished. He does not appear distressed. HENT: Exam performed. - Head: Normocephalic and atraumatic. - Right Ear: External ear normal. No mastoid tenderness. - Left Ear: External ear normal. No mastoid tenderness. - Mouth/Throat: The oropharynx is clear and moist. No trismus in the jaw. No dental abscesses or uvula swelling. No oropharyngeal exudate or tonsillar abscesses. EYES: Conjunctivae and EOM are normal. Pupils are equal, round, and reactive to light. Right eye exhibits no discharge. Left eye exhibits no discharge. No scleral icterus. NECK: Normal range of motion. Neck supple. No JVD present. No spinous process tenderness present. No carotid bruit present. No rigidity. No tracheal deviation and normal range of motion present. No Brudzinski's sign and no Kernig's sign noted. CV: Normal rate, regular rhythm, normal heart sounds and intact distal pulses. There is no peripheral edema. Palpable radial pulses bue. PULM/CHEST: Effort normal and breath sounds normal. No respiratory distress. No stridor. He has no wheezes. He has no rales. - Chest Wall: He exhibits no tenderness. ABD: The abdomen is soft. Bowel sounds are normal. He has no distension. No mass is present. There is no tenderness. There is no rebound, no guarding, no Rodriguez's sign and no tenderness at McBurney's point. Rovsig negative. MUSC/SKEL: Normal range of motion. There is no peripheral edema, tenderness or deformity. LYMPH: No cervical adenopathy. NEURO: He is alert and oriented to person, place, and time. He has normal strength. No cranial nerve deficit or sensory deficit. Coordination and gait normal. GCS eye subscore is 4. GCS verbal subscore is 5. GCS motor subscore is 6. Cerebellar tests wnl. SKIN: Skin is warm and dry. He is not diaphoretic. PSYCH: He has a normal mood and affect. Behavior is normal. Judgment and thought content normal. Course 1454: The patient was evaluated in room C4. A complete history and physical exam was performed. 1502: Vital signs stable. Labs and imaging within normal limits with exception of potassium level. Potassium was replaced in the emergency department. I discussed the patient's case with Gracie Park PA-C who states to admit to Dr. Marv Johnsonist. He will evaluate the patient for further management. I updated the patient and his family on his his test results and the treatment plan. They verbally agree and understand. Consultations Consultation #1: I discussed the patient's case with Dr. Fair Hospitalist. He will evaluate the patient for further management. Time: 15:02 Administered Medications Potassium Chloride (K Conner / Wtr) 10 meq in 100 mls @ 100 mls/hr IV Q1H JOHANA Stop: 12/03/18 21:59 Last Admin: 12/03/18 18:16 Dose: 100 mls/hr Documented by: [id number] Miscellaneous (Order Awaiting Action) 1 ea N/A QAM JOHANA Stop: 01/02/19 17:17 Last Admin: 12/03/18 18:13 Dose: Not Given Documented by: [id number] Discontinued Medications Aspirin (Aspirin) 324 mg PO NOW STA Stop: 12/03/18 15:11 Last Admin: 12/03/18 15:17 Dose: 324 mg Documented by: [id number] Potassium Chloride (Klor-Con M10) 40 meq PO NOW STA Stop: 12/03/18 15:02 Last Admin: 12/03/18 15:17 Dose: 40 meq Documented by: [id number] Medical Decision Making Medical Records Attestation: I reviewed the patient's medical records. Home Medications Current Medication List: was personally reviewed by me Laboratory Data Attestation: I reviewed the patient's lab results. Result diagrams: 12/03/18 14:12 12/03/18 14:12 Lab Results 12/03/18 12/03/18 12/03/18 Range/Units 14:12 14:12 14:12 WBC 10.62 (4.8-10.8) K/uL RBC 4.76 (4.7-6.1) M/uL Hgb 14.8 (14.0-18.0) g/dL Hct 40.0 L (42-52) % MCV 84.0 (80-100) fL MCH 31.1 (25-34) pg MCHC 37.0 H (32-36) g/dL RDW Std Deviation 41.4 (36.4-46.3) fL RDW Coeff of Valentino 13.6 (11.5-14.5) % Plt Count 176 (130-400) K/uL MPV 10.5 H (7.4-10.4) fL Immature Gran % (Auto) 0.8 % Neut % (Auto) 75.3 % Lymph % (Auto) 11.6 % [place] % (Auto) 10.5 % Eos % (Auto) 1.6 % Baso % (Auto) 0.2 % Immature Gran # (Auto) 0.08 H (0.00-0.02) K/uL Neut # (Auto) 8.01 H (1.4-6.5) K/uL Lymph # (Auto) 1.23 (1.2-3.4) K/uL [place] # (Auto) 1.11 H (0.11-0.59) K/uL Eos # (Auto) 0.17 (0-0.5) K/uL Baso # (Auto) 0.02 (0-0.2) K/uL PT 11.2 (9.0-12.0) Seconds INR 1.1 (0.9-1.1) APTT 29.0 (21.0-31.0) Seconds PTT Ratio 1.1 Sodium 140 (136-145) mmol/L Potassium 2.8 L (3.5-5.1) mmol/L Chloride 108 H (98-107) mmol/L Carbon Dioxide 19 L (21-32) mmol/L Anion Gap 13.0 H (3-11) BUN 11 (7-18) mg/dl Creatinine 1.17 (0.6-1.4) mg/dl Est Cr Clr Drug Dosing 59.2 ml/min Est GFR ( Amer) 70.3 Est GFR (Non-Af Amer) 60.6 BUN/Creatinine Ratio 9.1 L (10-20) Glucose 86 (70-99) mg/dl Calcium 9.0 (8.5-10.1) mg/dl Magnesium (1.8-2.4) mg/dl Total Bilirubin 0.7 (0.2-1) mg/dl AST 12 L (15-37) U/L ALT 14 (12-78) U/L Alkaline Phosphatase 83 (45-117) U/L Troponin I < 0.015 (0-0.045) ng/ml Total Protein 6.4 (6.4-8.2) gm/dl Albumin 3.0 L (3.4-5.0) gm/dl Globulin 3.4 (2.5-4.0) gm/dl Albumin/Globulin Ratio 0.9 (0.9-2) 12/03/18 Range/Units 14:12 WBC (4.8-10.8) K/uL RBC (4.7-6.1) M/uL Hgb (14.0-18.0) g/dL Hct (42-52) % MCV (80-100) fL MCH (25-34) pg MCHC (32-36) g/dL RDW Std Deviation (36.4-46.3) fL RDW Coeff of Valentino (11.5-14.5) % Plt Count (130-400) K/uL MPV (7.4-10.4) fL Immature Gran % (Auto) % Neut % (Auto) % Lymph % (Auto) % [place] % (Auto) % Eos % (Auto) % Baso % (Auto) % Immature Gran # (Auto) (0.00-0.02) K/uL Neut # (Auto) (1.4-6.5) K/uL Lymph # (Auto) (1.2-3.4) K/uL [place] # (Auto) (0.11-0.59) K/uL Eos # (Auto) (0-0.5) K/uL Baso # (Auto) (0-0.2) K/uL PT (9.0-12.0) Seconds INR (0.9-1.1) APTT (21.0-31.0) Seconds PTT Ratio Sodium (136-145) mmol/L Potassium (3.5-5.1) mmol/L Chloride (98-107) mmol/L Carbon Dioxide (21-32) mmol/L Anion Gap (3-11) BUN (7-18) mg/dl Creatinine (0.6-1.4) mg/dl Est Cr Clr Drug Dosing ml/min Est GFR ( Amer) Est GFR (Non-Af Amer) BUN/Creatinine Ratio (10-20) Glucose (70-99) mg/dl Calcium (8.5-10.1) mg/dl Magnesium 1.8 (1.8-2.4) mg/dl Total Bilirubin (0.2-1) mg/dl AST (15-37) U/L ALT (12-78) U/L Alkaline Phosphatase (45-117) U/L Troponin I (0-0.045) ng/ml Total Protein (6.4-8.2) gm/dl Albumin (3.4-5.0) gm/dl Globulin (2.5-4.0) gm/dl Albumin/Globulin Ratio (0.9-2) Imaging Data Radiologist's Impression: Radiology results as stated below per my review and the radiologist's interpretation: XR chest 1V portable CLINICAL HISTORY: Chest pain. COMPARISON STUDY: Chest CT October 31, 2018. Chest radiograph November 02, 2018. FINDINGS: There is no pneumothorax or pleural effusion. Bibasilar opacities butch wn on exam of November 02, 2018 are no longer identified. Cardiac size is normal. Mediastinal contours are normal. There is no evidence for pulmonary edema. IMPRESSION: 1. No acute cardiopulmonary findings. 2. Resolution of bibasilar airspace opacities shown on prior exam. Electronically signed by: Darin Naylor M.D. 12/03/2018 2:37 PM ECG Data Attestation: I personally reviewed and interpreted this ECG as follows: Indication: chest pain Rate (beats per minute): 83 Rhythm: sinus rhythm Findings: + other (NC, QRS, and QT-c intervals are within normal limits. T wave flattening in lead 3 and aVF.); no ST depression and no ST elevation Blood Pressure Blood Pressure Findings: Elevated blood pressure Blood Pressure Disposition: further management by hospitalist [facility] Narrative Vital signs stable. Labs and imaging within normal limits with exception of potassium level. Potassium was replaced in the emergency department. I discussed the patient's case with Gracie Park PA-C who states to admit to Dr. Fair Hospitalist. He will evaluate the patient for further management. I updated the patient and his family on his his test results and the treatment plan. They verbally agree and understand. Impression & Plan Chest pain, Hypokalemia Discharge Plan Visit Data *Final* Discharge Date/Time: 12/03/18 17:05 Chief Complaint: Chest Pain ED Provider: Inocencio Boone Discharge Problem: Chest pain, Hypokalemia Patient Disposition: Admitted As Inpatient Discharge Instructions Interventions: ED Discharge Assessment Last Done: 12/03/18 17:05 Discharge Problem: Chest pain Qualifiers: Chest pain type: unspecified Qualified Code(s): R07.9 - Chest pain, unspecified The scribe's documentation has been prepared under my direction and personally reviewed by me in its entirety. I confirm that the note above accurately reflects all work, treatment, procedures, and medical decision making performed by me.
[2018-12-03 19:28] LABS: BUN Creatinine Ratio 8.6 (10-20); Calcium 8.3 mg/dl (8.5-10.1); Creatinine Clr Calc Pharmacy 53.3 ml/min; Est GFR (African American) 61.9; Est GFR (Non-African American) 53.4; Potassium 3.2 mmol/L (3.5-5.1)
[2018-12-03] MEDS ORDERED: MAGNESIUM SULFATE / D5W 1 GM/100 ML BAG IV ONE (19:30)
[2018-12-03 20:00] LABS: Cdiff Antigen Positive; Cdiff Toxin A+B Negative Cdiff Toxin (Negative)
[2018-12-03] MEDS: TAMSULOSIN HCL 0.4 MG CAP PO SCH (20:05)
[2018-12-03] MEDS: FLUTICASONE/SALMETEROL 250/50 (ADVAIR) 14 PUFF/1 INHALER INH SCH (20:05)
[2018-12-03] MEDS: LACTOBACILLUS ACIDOPHILUS (FLORANEX) TAB PO SCH (20:06)
[2018-12-03] MEDS: HEPARIN SOD 5,000 UNIT/0.5 ML VIAL SQ SCH (20:07)
[2018-12-03] MEDS: MAGNESIUM OXIDE 400 MG TAB PO SCH (20:13)
[2018-12-03] MEDS ORDERED: VERAPAMIL HCL 240 MG TABCR PO SCH (21:00)
[2018-12-03] MEDS ORDERED: Nursing to Pharmacy Communication ONE (22:29)
[2018-12-03] MEDS ORDERED: SODIUM CHLORIDE 0.9% 500 ML IV SCH (22:45)
[2018-12-04] MEDS: POTASSIUM CHLORIDE / WTR 10 MEQ/100 ML PLCT IV SCH (00:02)
[2018-12-04] MEDS: LEVOTHYROXINE SODIUM 150 MCG TABLET PO SCH (05:57)
[2018-12-04] MEDS: HEPARIN SOD 5,000 UNIT/0.5 ML VIAL SQ SCH ×3 (05:57→21:09)
[2018-12-04 06:10] LABS: Hemoglobin 13.7 g/dL (14.0-18.0); Mean Corpuscular Hgb Conc 34.3 g/dL (32-36); Mean Platelet Volume 10.3 fL (7.4-10.4); Platelet Count 158 K/uL (130-400); RDW Coefficient of Variation 14.1 % (11.5-14.5); RDW Standard Deviation 44.9 fL (36.4-46.3); White Blood Count 7.86 K/uL (4.8-10.8)
[2018-12-04 06:19] LABS: Estimated Average Glucose 111 mg/dl; Hemoglobin A1C 5.5 % (4.5-5.6)
[2018-12-04 06:46] LABS: BUN Creatinine Ratio 9.6 (10-20); Calcium 8.5 mg/dl (8.5-10.1); Creatinine Clr Calc Pharmacy 60.7 ml/min; Est GFR (African American) 72.5; Est GFR (Non-African American) 62.6; Magnesium 2.3 mg/dl (1.8-2.4); Potassium 3.5 mmol/L (3.5-5.1)
[2018-12-04] MEDS ORDERED: POTASSIUM CHLORIDE 20 MEQ TABCR PO STA (07:34)
[2018-12-04] MEDS: FLUTICASONE/SALMETEROL 250/50 (ADVAIR) 14 PUFF/1 INHALER INH SCH ×2 (09:09→21:03)
[2018-12-04] MEDS: TRIAMCINOLONE ACET NASAL SPRAY 10.8ML BTL NAE SCH (09:09)
[2018-12-04] MEDS: SERTRALINE HCL 50 MG TABLET PO SCH (09:10)
[2018-12-04] MEDS: MAGNESIUM OXIDE 400 MG TAB PO SCH (09:10)
[2018-12-04] MEDS: ASPIRIN 81 MG ECTAB PO SCH (09:11)
[2018-12-04] MEDS: ATORVASTATIN 20 MG TAB PO SCH (09:11)
[2018-12-04] MEDS: LOSARTAN POTASSIUM 50 MG TAB PO SCH (09:11)
[2018-12-04] MEDS: LACTOBACILLUS ACIDOPHILUS (FLORANEX) TAB PO SCH ×2 (09:11→21:04)
--- NOTE | 2018-12-04 10:44 | Gastrointestinal Consultation ---
Date of Consultation December 04, 2018 Assessment & Plan (1) Clostridium difficile carrier: 77 year old male who presented with chest pain, radiation to left arm admitted for observation. Troponin negative, EKG w/ inferior infart w/ pending echo and cardiology evaluation. GI asked to evaluated for dark, liquid stools since OP ABX and c.diff carrier status C.diff gene + with negative toxin. He continues to have liquid stools which are dark brown/black to him. Would check a stool culture. Can trial Colestipol 1 G twice daily as needed. Can repeat stool for c.diff if symptoms changes. In regards to his heme testing, denies overt melena. He has remained hemodynamically stable w/ HGB 13.7 w/o BUN elevation. BP 144/79 w/ pulse 60 - Trend H&H - Monitor and document all GI output - Transfuse PRN - PO PPI once daily - OP EGD/Colonoscopy GI to sign off. Thank you for allowing us to participate in the care of this patient. Please call with any acute changes, questions or concerns. Please see addendum below with additional recommendation from my supervising physician. Present on Admission?: Yes Supervising Physician Co-Signing Physician Notes I performed a history and physical examination of the patient, including specifically on physical exam - soft, nontender abdomen. I have discussed the patient's management with Linh. Please refer to the nurse practitioner's note for the documented findings and plan of care. 77 male patient admitted with chest pain, GI consulted for diarrhea with dark colored stool. He reported taking ABx recently which caused diarrhea for which he took PeptoBismol which turned his stool black. His C.diff test is gene positive, Antigene negative consistent with a carrier state. Recommend: EGD/ colonoscopy as outpatient once cardiac work up is complete. Trial of Bentyl or Colestipol. Recall GI as needed. History of Present Illness Reason for Consultation: dark stool, c.diff carrier Requesting Physician: Gustavo Attending Physician: Cornelius Chen MD History of Present Illness 78 year old male with history of asthma, CAD, HTN who presented to the ED for evaluation of CP w/ radiaiton to left arm - GI asked to evaluate for dark stools, c.diff carrier status. Pt was seen and evaluated, chart reviewed. Notes he was in his typical state of health from a GI standpoint. Finished an OP ABX for respiratory symptoms and noted persistetn diarrhea since. Was moving hs bowels 3-4 times daily. This is watery stool which is dark brown/black. No tarry, sticky stools. No BRBPR. Will have abc cramping before BM w/ urgency but denies any ABD pain. No nausea, vomiting. C.diff gene + but toxin negative Culture not obtained Occult + HGB: 13.4 -> 14.8 --> 13.7 Colonoscopy 2017: The examined portion of the ileum was normal. Two 4 to 5 mm polyps in the transverse colon, removed witha cold snare. Resected and retrieved. Mild diverticulosis in the sigmoid colon and in the descending colon.Internal hemorrhoids.The examination was otherwise normal. EUS 2013: normal ampulla, GB,. Mild CBD dilaiton, right hepatic cyst, mild PD dilation at 5 mm w/ stable IPMN Allergies Allergy/AdvReac Type Severity Reaction Status Date / Time codeine AdvReac Mild N/V Verified 12/03/18 14:53 Home Medications Home Medications Medication Instructions Recorded Confirmed Type aspirin [Aspir-Low] 81 mg PO DAILY 10/31/18 12/03/18 History atorvastatin 20 mg PO DAILY 10/31/18 12/03/18 History dextran 70-hypromellose (PF) 1 drp OPL QID PRN 10/31/18 12/03/18 History fluticasone propion-salmeterol 1 inh INHALATION BID 10/31/18 12/03/18 History [Advair Diskus] guaifenesin [Mucinex] 600 mg PO Q12H PRN 10/31/18 12/03/18 History levothyroxine 137 mcg PO 4XWK 10/31/18 12/03/18 History levothyroxine [Synthroid] 150 mcg PO 3XWK 10/31/18 12/03/18 History loratadine [Claritin] 10 mg PO DAILY 10/31/18 12/03/18 History meclizine 25 mg PO Q6 PRN 10/31/18 12/03/18 History naproxen sodium [Aleve] 220 mg PO BID PRN 10/31/18 12/03/18 History potassium chloride [Klor-Con M10] 10 meq PO DAILY 10/31/18 12/03/18 History ranitidine HCl 300 mg PO QPM 10/31/18 12/03/18 History sertraline 50 mg PO DAILY 10/31/18 12/03/18 History tamsulosin [Flomax] 0.4 mg PO HS 10/31/18 12/03/18 History triamcinolone acetonide 1 spray INTRANASAL DAILY 10/31/18 12/03/18 History verapamil 120 mg PO QPM 10/31/18 12/03/18 History Lactobacillus acidoph-L.bulgar 1 tab PO BID #30 tab 11/02/18 12/03/18 Rx [Lactinex] levofloxacin 750 mg PO DAILY 12/03/18 12/03/18 History losartan-hydrochlorothiazide 1 tab PO DAILY 12/03/18 12/03/18 History Patient History Medical History History of Graves' disease (Chronic) History of thyroidectomy, total (Chronic) History of malignant melanoma of skin (Chronic) Hypothyroidism (Chronic) BPH (benign prostatic hyperplasia) (Chronic) Coronary atherosclerosis of elim ira coronary artery (Chronic) History of pulmonary embolism (Chronic) Hypertension (Chronic) Asthma (Chronic) COPD (chronic obstructive pulmonary disease) (Chronic) Prostate cancer (Resolved) Status post seed implant Skin cancer (Resolved) Surgical History History of cardiac cath (Chronic) Negative per patient, no history of stenting or bypass History of vasectomy (Chronic) History of cystoscopy (Chronic) History of colonoscopy with polypectomy (Chronic) Last 11/03/2016 recommend repeat in 3 years History of basal cell carcinoma (BCC) excision (Chronic) History of hernia repair (Chronic) History of eye surgery (Chronic) History of appendectomy (Resolved) H/O rotator cuff surgery (Resolved) Status post operation on nasal sinus (Resolved) "09/2002" Family History Father Cancer Prostate and bladder Mother Stroke Breast cancer Other Family history non-contributory Social History Preferred Language: Tajik Communication Ability: Effective Automatic Driller And Reamer Required: No Beliefs That Will Affect Care: Taoist Taoist Beliefs: Restorationist marital status: Current Living Situation: Spouse Feels Safe at Home: Yes Safety Concerns: Feels Safe At This Time Smoking Status: Former smoker Age Quit Using Tobacco: 27 Do You Dip or Chew Tobacco: No Smoking End Date: Quit in 1967 Number of Years Since Quit: 50 Second Hand Exposure: No Hx Alcohol Use: Yes Alcohol type: beer, wine and hard liquor Hx Substance Use: No Review of Systems Constitutional: + fatigue; no fever and no chills Respiratory: no cough, no chest congestion and no dyspnea Cardiovascular: no chest pain, no chest pain at rest and no dyspnea Gastrointestinal: + change in stools and + diarrhea/loose stools; no abdominal pain, no belching, no early satiety, no heartburn, no nausea, no vomiting, no coffee ground emesis and no dysphagia Physical Exam Constitutional: WD/WN, vitals as above well developed Respiratory: normal respiratory effort, lungs clear to auscultation Cardiovascular: RRR, no murmur, no edema Gastrointestinal (Abdomen): normal bowel sounds, soft, nontender, no hepatosplenomegaly Skin: no rashes, warm and dry Results & Data Vital Signs (Past 12 Hours) Vital Signs Temp Pulse Pulse Resp BP Pulse Ox 12/04/18 08:00 60 12/04/18 07:48 36.6 C 69 18 144/79 H 95 12/04/18 04:27 36.7 C 66 18 143/69 H 95 12/04/18 00:23 36.3 C L 88 18 174/65 H 96 12/03/18 23:24 89 Laboratory Results 12/04/18 12/04/18 12/04/18 Range/Units 05:37 05:37 05:37 WBC 7.86 (4.8-10.8) K/uL RBC 4.60 L (4.7-6.1) M/uL Hgb 13.7 L (14.0-18.0) g/dL Hct 40.0 L (42-52) % MCV 87.0 (80-100) fL MCH 29.8 (25-34) pg MCHC 34.3 (32-36) g/dL RDW Std Deviation 44.9 (36.4-46.3) fL RDW Coeff of Valentino 14.1 (11.5-14.5) % Plt Count 158 (130-400) K/uL MPV 10.3 (7.4-10.4) fL Immature Gran % (Auto) % Neut % (Auto) % Lymph % (Auto) % [place] % (Auto) % Eos % (Auto) % Baso % (Auto) % Immature Gran # (Auto) (0.00-0.02) K/uL Neut # (Auto) (1.4-6.5) K/uL Lymph # (Auto) (1.2-3.4) K/uL [place] # (Auto) (0.11-0.59) K/uL Eos # (Auto) (0-0.5) K/uL Baso # (Auto) (0-0.2) K/uL PT (9.0-12.0) Seconds INR (0.9-1.1) APTT (21.0-31.0) Seconds PTT Ratio Sodium 141 (136-145) mmol/L Potassium 3.5 (3.5-5.1) mmol/L Chloride 109 H (98-107) mmol/L Carbon Dioxide 24 (21-32) mmol/L Anion Gap 8.0 (3-11) BUN 11 (7-18) mg/dl Creatinine 1.14 (0.6-1.4) mg/dl Est Cr Clr Drug Dosing 60.7 ml/min Est GFR ( Amer) 72.5 Est GFR (Non-Af Amer) 62.6 BUN/Creatinine Ratio 9.6 L (10-20) Glucose 90 (70-99) mg/dl Estimat Average Glucose 111 mg/dl Hemoglobin A1c 5.5 (4.5-5.6) % Calcium 8.5 (8.5-10.1) mg/dl Magnesium 2.3 (1.8-2.4) mg/dl Total Bilirubin (0.2-1) mg/dl AST (15-37) U/L ALT (12-78) U/L Alkaline Phosphatase (45-117) U/L Troponin I (0-0.045) ng/ml Total Protein (6.4-8.2) gm/dl Albumin (3.4-5.0) gm/dl Globulin (2.5-4.0) gm/dl Albumin/Globulin Ratio (0.9-2) Triglycerides 124 (0-150) mg/dl Cholesterol 158 (0-200) mg/dl LDL Cholesterol, Calc 83 mg/dl VLDL Cholesterol, Calc 25 mg/dl HDL Cholesterol 50 mg/dl Cholesterol/HDL Ratio 3 Stool Occult Bld Scrn (Negative) Stool Occult Blood Stool Occult Blood #2 Stool Occult Blood #3 Stl C. diff Tox B Gene (Neg) Stl C.difficile Tox A&B (Negative) 12/04/18 12/03/18 12/03/18 Range/Units 00:43 Unknown 18:58 WBC (4.8-10.8) K/uL RBC (4.7-6.1) M/uL Hgb (14.0-18.0) g/dL Hct (42-52) % MCV (80-100) fL MCH (25-34) pg MCHC (32-36) g/dL RDW Std Deviation (36.4-46.3) fL RDW Coeff of Valentino (11.5-14.5) % Plt Count (130-400) K/uL MPV (7.4-10.4) fL Immature Gran % (Auto) % Neut % (Auto) % Lymph % (Auto) % [place] % (Auto) % Eos % (Auto) % Baso % (Auto) % Immature Gran # (Auto) (0.00-0.02) K/uL Neut # (Auto) (1.4-6.5) K/uL Lymph # (Auto) (1.2-3.4) K/uL [place] # (Auto) (0.11-0.59) K/uL Eos # (Auto) (0-0.5) K/uL Baso # (Auto) (0-0.2) K/uL PT (9.0-12.0) Seconds INR (0.9-1.1) APTT (21.0-31.0) Seconds PTT Ratio Sodium (136-145) mmol/L Potassium (3.5-5.1) mmol/L Chloride (98-107) mmol/L Carbon Dioxide (21-32) mmol/L Anion Gap (3-11) BUN (7-18) mg/dl Creatinine (0.6-1.4) mg/dl Est Cr Clr Drug Dosing ml/min Est GFR ( Amer) Est GFR (Non-Af Amer) BUN/Creatinine Ratio (10-20) Glucose (70-99) mg/dl Estimat Average Glucose mg/dl Hemoglobin A1c (4.5-5.6) % Calcium (8.5-10.1) mg/dl Magnesium (1.8-2.4) mg/dl Total Bilirubin (0.2-1) mg/dl AST (15-37) U/L ALT (12-78) U/L Alkaline Phosphatase (45-117) U/L Troponin I < 0.015 < 0.015 (0-0.045) ng/ml Total Protein (6.4-8.2) gm/dl Albumin (3.4-5.0) gm/dl Globulin (2.5-4.0) gm/dl Albumin/Globulin Ratio (0.9-2) Triglycerides (0-150) mg/dl Cholesterol (0-200) mg/dl LDL Cholesterol, Calc mg/dl VLDL Cholesterol, Calc mg/dl HDL Cholesterol mg/dl Cholesterol/HDL Ratio Stool Occult Bld Scrn (Negative) Stool Occult Blood Stool Occult Blood #2 Stool Occult Blood #3 Stl C. diff Tox B Gene Positive Cdiff Gene H (Neg) Stl C.difficile Tox A&B Negative Cdiff Toxin (Negative) 12/03/18 12/03/18 12/03/18 Range/Units 18:58 18:03 18:03 WBC (4.8-10.8) K/uL RBC (4.7-6.1) M/uL Hgb (14.0-18.0) g/dL Hct (42-52) % MCV (80-100) fL MCH (25-34) pg MCHC (32-36) g/dL RDW Std Deviation (36.4-46.3) fL RDW Coeff of Valentino (11.5-14.5) % Plt Count (130-400) K/uL MPV (7.4-10.4) fL Immature Gran % (Auto) % Neut % (Auto) % Lymph % (Auto) % [place] % (Auto) % Eos % (Auto) % Baso % (Auto) % Immature Gran # (Auto) (0.00-0.02) K/uL Neut # (Auto) (1.4-6.5) K/uL Lymph # (Auto) (1.2-3.4) K/uL [place] # (Auto) (0.11-0.59) K/uL Eos # (Auto) (0-0.5) K/uL Baso # (Auto) (0-0.2) K/uL PT (9.0-12.0) Seconds INR (0.9-1.1) APTT (21.0-31.0) Seconds PTT Ratio Sodium 139 (136-145) mmol/L Potassium 3.2 L (3.5-5.1) mmol/L Chloride 107 (98-107) mmol/L Carbon Dioxide 25 (21-32) mmol/L Anion Gap 7.0 (3-11) BUN 11 (7-18) mg/dl Creatinine 1.30 (0.6-1.4) mg/dl Est Cr Clr Drug Dosing 53.3 ml/min Est GFR ( Amer) 61.9 Est GFR (Non-Af Amer) 53.4 BUN/Creatinine Ratio 8.6 L (10-20) Glucose 109 H (70-99) mg/dl Estimat Average Glucose mg/dl Hemoglobin A1c (4.5-5.6) % Calcium 8.3 L (8.5-10.1) mg/dl Magnesium (1.8-2.4) mg/dl Total Bilirubin (0.2-1) mg/dl AST (15-37) U/L ALT (12-78) U/L Alkaline Phosphatase (45-117) U/L Troponin I (0-0.045) ng/ml Total Protein (6.4-8.2) gm/dl Albumin (3.4-5.0) gm/dl Globulin (2.5-4.0) gm/dl Albumin/Globulin Ratio (0.9-2) Triglycerides (0-150) mg/dl Cholesterol (0-200) mg/dl LDL Cholesterol, Calc mg/dl VLDL Cholesterol, Calc mg/dl HDL Cholesterol mg/dl Cholesterol/HDL Ratio Stool Occult Bld Scrn Positive A (Negative) Stool Occult Blood Cancelled Stool Occult Blood #2 Cancelled Stool Occult Blood #3 Cancelled Stl C. diff Tox B Gene (Neg) Stl C.difficile Tox A&B (Negative) 12/03/18 12/03/18 12/03/18 Range/Units 14:12 14:12 14:12 WBC (4.8-10.8) K/uL RBC (4.7-6.1) M/uL Hgb (14.0-18.0) g/dL Hct (42-52) % MCV (80-100) fL MCH (25-34) pg MCHC (32-36) g/dL RDW Std Deviation (36.4-46.3) fL RDW Coeff of Valentino (11.5-14.5) % Plt Count (130-400) K/uL MPV (7.4-10.4) fL Immature Gran % (Auto) % Neut % (Auto) % Lymph % (Auto) % [place] % (Auto) % Eos % (Auto) % Baso % (Auto) % Immature Gran # (Auto) (0.00-0.02) K/uL Neut # (Auto) (1.4-6.5) K/uL Lymph # (Auto) (1.2-3.4) K/uL [place] # (Auto) (0.11-0.59) K/uL Eos # (Auto) (0-0.5) K/uL Baso # (Auto) (0-0.2) K/uL PT 11.2 (9.0-12.0) Seconds INR 1.1 (0.9-1.1) APTT 29.0 (21.0-31.0) Seconds PTT Ratio 1.1 Sodium 140 (136-145) mmol/L Potassium 2.8 L (3.5-5.1) mmol/L Chloride 108 H (98-107) mmol/L Carbon Dioxide 19 L (21-32) mmol/L Anion Gap 13.0 H (3-11) BUN 11 (7-18) mg/dl Creatinine 1.17 (0.6-1.4) mg/dl Est Cr Clr Drug Dosing 59.2 ml/min Est GFR ( Amer) 70.3 Est GFR (Non-Af Amer) 60.6 BUN/Creatinine Ratio 9.1 L (10-20) Glucose 86 (70-99) mg/dl Estimat Average Glucose mg/dl Hemoglobin A1c (4.5-5.6) % Calcium 9.0 (8.5-10.1) mg/dl Magnesium 1.8 (1.8-2.4) mg/dl Total Bilirubin 0.7 (0.2-1) mg/dl AST 12 L (15-37) U/L ALT 14 (12-78) U/L Alkaline Phosphatase 83 (45-117) U/L Troponin I < 0.015 (0-0.045) ng/ml Total Protein 6.4 (6.4-8.2) gm/dl Albumin 3.0 L (3.4-5.0) gm/dl Globulin 3.4 (2.5-4.0) gm/dl Albumin/Globulin Ratio 0.9 (0.9-2) Triglycerides (0-150) mg/dl Cholesterol (0-200) mg/dl LDL Cholesterol, Calc mg/dl VLDL Cholesterol, Calc mg/dl HDL Cholesterol mg/dl Cholesterol/HDL Ratio Stool Occult Bld Scrn (Negative) Stool Occult Blood Stool Occult Blood #2 Stool Occult Blood #3 Stl C. diff Tox B Gene (Neg) Stl C.difficile Tox A&B (Negative) 12/03/18 Range/Units 14:12 WBC 10.62 (4.8-10.8) K/uL RBC 4.76 (4.7-6.1) M/uL Hgb 14.8 (14.0-18.0) g/dL Hct 40.0 L (42-52) % MCV 84.0 (80-100) fL MCH 31.1 (25-34) pg MCHC 37.0 H (32-36) g/dL RDW Std Deviation 41.4 (36.4-46.3) fL RDW Coeff of Valentino 13.6 (11.5-14.5) % Plt Count 176 (130-400) K/uL MPV 10.5 H (7.4-10.4) fL Immature Gran % (Auto) 0.8 % Neut % (Auto) 75.3 % Lymph % (Auto) 11.6 % [place] % (Auto) 10.5 % Eos % (Auto) 1.6 % Baso % (Auto) 0.2 % Immature Gran # (Auto) 0.08 H (0.00-0.02) K/uL Neut # (Auto) 8.01 H (1.4-6.5) K/uL Lymph # (Auto) 1.23 (1.2-3.4) K/uL [place] # (Auto) 1.11 H (0.11-0.59) K/uL Eos # (Auto) 0.17 (0-0.5) K/uL Baso # (Auto) 0.02 (0-0.2) K/uL PT (9.0-12.0) Seconds INR (0.9-1.1) APTT (21.0-31.0) Seconds PTT Ratio Sodium (136-145) mmol/L Potassium (3.5-5.1) mmol/L Chloride (98-107) mmol/L Carbon Dioxide (21-32) mmol/L Anion Gap (3-11) BUN (7-18) mg/dl Creatinine (0.6-1.4) mg/dl Est Cr Clr Drug Dosing ml/min Est GFR ( Amer) Est GFR (Non-Af Amer) BUN/Creatinine Ratio (10-20) Glucose (70-99) mg/dl Estimat Average Glucose mg/dl Hemoglobin A1c (4.5-5.6) % Calcium (8.5-10.1) mg/dl Magnesium (1.8-2.4) mg/dl Total Bilirubin (0.2-1) mg/dl AST (15-37) U/L ALT (12-78) U/L Alkaline Phosphatase (45-117) U/L Troponin I (0-0.045) ng/ml Total Protein (6.4-8.2) gm/dl Albumin (3.4-5.0) gm/dl Globulin (2.5-4.0) gm/dl Albumin/Globulin Ratio (0.9-2) Triglycerides (0-150) mg/dl Cholesterol (0-200) mg/dl LDL Cholesterol, Calc mg/dl VLDL Cholesterol, Calc mg/dl HDL Cholesterol mg/dl Cholesterol/HDL Ratio Stool Occult Bld Scrn (Negative) Stool Occult Blood Stool Occult Blood #2 Stool Occult Blood #3 Stl C. diff Tox B Gene (Neg) Stl C.difficile Tox A&B (Negative)
--- NOTE | 2018-12-04 12:16 | Cardiology Consultation ---
Date of Consultation December 04, 2018 Assessment & Plan (1) ALEXANDER (dyspnea on exertion): Given persistent symptoms as well as intermittent chest discomfort will order stress or cardiography to further assess. Last stress testing done 2016 Further recommendations pending the results of study Current enzymes and EKGs reflect no acute changes to suggest infarct If stress test abnormal or poorly tolerated proceed to diagnostic cardiac catheterization (2) Easy fatigability: (3) Hypertension: History of Present Illness Reason for Consultation: Exertional fatigue dyspnea, chest discomfort Requesting Physician: Dr. Chen Attending Physician: Cornelius Chen MD History of Present Illness Patient is a 77-year-old male with history of hypertension, hyperlipidemia past diagnostic cardiac catheterization for chest discomfort 2006 minimal coronary atherosclerosis only no obstruction. Patient presents now noting symptoms of weakness and fatigue exertional chest discomfort at times, recent chest trauma. Patient recently hospitalized with pneumonia in October carries past history of pulmonary embolus bilateral appropriate course of anticoagulant therapy Patient denies current fevers or chills has had bowel upset and frequent diarrhea. Notes no melena medication additional hematuria notes no headache or visual changes notes no rash or arthritic complaint. Appetite's been fair notes no acute weight loss or gain. Generally active when feeling well. No bleeding or bruising issues. Notes fell 1 to 2 months ago carrying a log with substernal chest injury. Notes no current abdominal tenderness denies headache or visual changes rash arthritic complaint Allergies Allergy/AdvReac Type Severity Reaction Status Date / Time codeine AdvReac Mild N/V Verified 12/03/18 14:53 Home Medications Home Medications Medication Instructions Recorded Confirmed Type aspirin [Aspir-Low] 81 mg PO DAILY 10/31/18 12/03/18 History atorvastatin 20 mg PO DAILY 10/31/18 12/03/18 History dextran 70-hypromellose (PF) 1 drp OPL QID PRN 10/31/18 12/03/18 History fluticasone propion-salmeterol 1 inh INHALATION BID 10/31/18 12/03/18 History [Advair Diskus] guaifenesin [Mucinex] 600 mg PO Q12H PRN 10/31/18 12/03/18 History levothyroxine 137 mcg PO 4XWK 10/31/18 12/03/18 History levothyroxine [Synthroid] 150 mcg PO 3XWK 10/31/18 12/03/18 History loratadine [Claritin] 10 mg PO DAILY 10/31/18 12/03/18 History meclizine 25 mg PO Q6 PRN 10/31/18 12/03/18 History naproxen sodium [Aleve] 220 mg PO BID PRN 10/31/18 12/03/18 History potassium chloride [Klor-Con M10] 10 meq PO DAILY 10/31/18 12/03/18 History ranitidine HCl 300 mg PO QPM 10/31/18 12/03/18 History sertraline 50 mg PO DAILY 10/31/18 12/03/18 History tamsulosin [Flomax] 0.4 mg PO HS 10/31/18 12/03/18 History triamcinolone acetonide 1 spray INTRANASAL DAILY 10/31/18 12/03/18 History verapamil 120 mg PO QPM 10/31/18 12/03/18 History Lactobacillus acidoph-L.bulgar 1 tab PO BID #30 tab 11/02/18 12/03/18 Rx [Lactinex] levofloxacin 750 mg PO DAILY 12/03/18 12/03/18 History losartan-hydrochlorothiazide 1 tab PO DAILY 12/03/18 12/03/18 History Patient History Medical History History of Graves' disease (Chronic) History of thyroidectomy, total (Chronic) History of malignant melanoma of skin (Chronic) Hypothyroidism (Chronic) BPH (benign prostatic hyperplasia) (Chronic) Coronary atherosclerosis of [place] coronary artery (Chronic) History of pulmonary embolism (Chronic) Hypertension (Chronic) Asthma (Chronic) COPD (chronic obstructive pulmonary disease) (Chronic) Prostate cancer (Resolved) Status post seed implant Skin cancer (Resolved) Surgical History History of cardiac cath (Chronic) Negative per patient, no history of stenting or bypass History of vasectomy (Chronic) History of cystoscopy (Chronic) History of colonoscopy with polypectomy (Chronic) Last 11/03/2016 recommend repeat in 3 years History of basal cell carcinoma (BCC) excision (Chronic) History of hernia repair (Chronic) History of eye surgery (Chronic) History of appendectomy (Resolved) H/O rotator cuff surgery (Resolved) Status post operation on nasal sinus (Resolved) "09/2002" Family History Father Cancer Prostate and bladder Mother Stroke Breast cancer Other Family history non-contributory Social History Preferred Language: Chadian Communication Ability: Effective 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 Bills Required: No Beliefs That Will Affect Care: Amish Amish Beliefs: Muslim marital status: Current Living Situation: Spouse Feels Safe at Home: Yes Safety Concerns: Feels Safe At This Time Smoking Status: Former smoker Age Quit Using Tobacco: 27 Do You Dip or Chew Tobacco: No Smoking End Date: Quit in 1967 Number of Years Since Quit: 50 Second Hand Exposure: No Hx Alcohol Use: Yes Alcohol type: beer, wine and hard liquor Hx Substance Use: No Review of Systems Review of Systems: As per HPI and otherwise no Physical Exam Constitutional: WD/WN, vitals as above Eyes: + eyes dysmorphic ENMT: external ear and nose normal, oropharynx normal Neck: trachea midline, no thyromegaly Respiratory: normal respiratory effort, lungs clear to auscultation Cardiovascular: Rate/Rhythm: regular rate and regular rhythm Heart Sounds: normal S1 and normal S2; no gallop and no murmur Vessels: no JVD Extremities: no edema Musculoskeletal: no cyanosis or clubbing, extremities motor strength 5/5 Skin: no rashes, warm and dry Neurologic: moves all extremities Motor/Sensory: no tremor Results & Data Vital Signs (Past 12 Hours) Vital Signs Temp Pulse Pulse Resp BP Pulse Ox 12/04/18 11:48 36.6 C 78 18 151/73 H 96 12/04/18 08:00 60 12/04/18 07:48 36.6 C 69 18 144/79 H 95 12/04/18 04:27 36.7 C 66 18 143/69 H 95 12/04/18 00:23 36.3 C L 88 18 174/65 H 96 Laboratory Results Laboratory Results - last 24 hr 12/03/18 12/03/18 12/03/18 14:12 14:12 14:12 WBC 10.62 RBC 4.76 Hgb 14.8 Hct 40.0 L MCV 84.0 MCH 31.1 MCHC 37.0 H RDW Std Deviation 41.4 RDW Coeff of Valentino 13.6 Plt Count 176 MPV 10.5 H Immature Gran % (Auto) 0.8 Neut % (Auto) 75.3 Lymph % (Auto) 11.6 [place] % (Auto) 10.5 Eos % (Auto) 1.6 Baso % (Auto) 0.2 Immature Gran # (Auto) 0.08 H Neut # (Auto) 8.01 H Lymph # (Auto) 1.23 [place] # (Auto) 1.11 H Eos # (Auto) 0.17 Baso # (Auto) 0.02 PT 11.2 INR 1.1 APTT 29.0 PTT Ratio 1.1 Sodium 140 Potassium 2.8 L Chloride 108 H Carbon Dioxide 19 L Anion Gap 13.0 H BUN 11 Creatinine 1.17 Est Cr Clr Drug Dosing 59.2 Est GFR ( Amer) 70.3 Est GFR (Non-Af Amer) 60.6 BUN/Creatinine Ratio 9.1 L Glucose 86 Estimat Average Glucose Hemoglobin A1c Calcium 9.0 Magnesium Total Bilirubin 0.7 AST 12 L ALT 14 Alkaline Phosphatase 83 Troponin I < 0.015 Total Protein 6.4 Albumin 3.0 L Globulin 3.4 Albumin/Globulin Ratio 0.9 Triglycerides Cholesterol LDL Cholesterol, Calc VLDL Cholesterol, Calc HDL Cholesterol Cholesterol/HDL Ratio Stool Occult Bld Scrn Stool Occult Blood Stool Occult Blood #2 Stool Occult Blood #3 Stl C. diff Tox B Gene Stl C.difficile Tox A&B 12/03/18 12/03/18 12/03/18 14:12 18:03 18:03 WBC RBC Hgb Hct MCV MCH MCHC RDW Std Deviation RDW Coeff of Valentino Plt Count MPV Immature Gran % (Auto) Neut % (Auto) Lymph % (Auto) [place] % (Auto) Eos % (Auto) Baso % (Auto) Immature Gran # (Auto) Neut # (Auto) Lymph # (Auto) [place] # (Auto) Eos # (Auto) Baso # (Auto) PT INR APTT PTT Ratio Sodium Potassium Chloride Carbon Dioxide Anion Gap BUN Creatinine Est Cr Clr Drug Dosing Est GFR ( Amer) Est GFR (Non-Af Amer) BUN/Creatinine Ratio Glucose Estimat Average Glucose Hemoglobin A1c Calcium Magnesium 1.8 Total Bilirubin AST ALT Alkaline Phosphatase Troponin I Total Protein Albumin Globulin Albumin/Globulin Ratio Triglycerides Cholesterol LDL Cholesterol, Calc VLDL Cholesterol, Calc HDL Cholesterol Cholesterol/HDL Ratio Stool Occult Bld Scrn Positive A Stool Occult Blood Cancelled Stool Occult Blood #2 Cancelled Stool Occult Blood #3 Cancelled Stl C. diff Tox B Gene Stl C.difficile Tox A&B 12/03/18 12/03/18 12/03/18 18:58 18:58 Unknown WBC RBC Hgb Hct MCV MCH MCHC RDW Std Deviation RDW Coeff of Valentino Plt Count MPV Immature Gran % (Auto) Neut % (Auto) Lymph % (Auto) [place] % (Auto) Eos % (Auto) Baso % (Auto) Immature Gran # (Auto) Neut # (Auto) Lymph # (Auto) [place] # (Auto) Eos # (Auto) Baso # (Auto) PT INR APTT PTT Ratio Sodium 139 Potassium 3.2 L Chloride 107 Carbon Dioxide 25 Anion Gap 7.0 BUN 11 Creatinine 1.30 Est Cr Clr Drug Dosing 53.3 Est GFR ( Amer) 61.9 Est GFR (Non-Af Amer) 53.4 BUN/Creatinine Ratio 8.6 L Glucose 109 H Estimat Average Glucose Hemoglobin A1c Calcium 8.3 L Magnesium Total Bilirubin AST ALT Alkaline Phosphatase Troponin I < 0.015 Total Protein Albumin Globulin Albumin/Globulin Ratio Triglycerides Cholesterol LDL Cholesterol, Calc VLDL Cholesterol, Calc HDL Cholesterol Cholesterol/HDL Ratio Stool Occult Bld Scrn Stool Occult Blood Stool Occult Blood #2 Stool Occult Blood #3 Stl C. diff Tox B Gene Positive Cdiff Gene H Stl C.difficile Tox A&B Negative Cdiff Toxin 12/04/18 12/04/18 12/04/18 00:43 05:37 05:37 WBC 7.86 RBC 4.60 L Hgb 13.7 L Hct 40.0 L MCV 87.0 MCH 29.8 MCHC 34.3 RDW Std Deviation 44.9 RDW Coeff of Valentino 14.1 Plt Count 158 MPV 10.3 Immature Gran % (Auto) Neut % (Auto) Lymph % (Auto) [place] % (Auto) Eos % (Auto) Baso % (Auto) Immature Gran # (Auto) Neut # (Auto) Lymph # (Auto) [place] # (Auto) Eos # (Auto) Baso # (Auto) PT INR APTT PTT Ratio Sodium 141 Potassium 3.5 Chloride 109 H Carbon Dioxide 24 Anion Gap 8.0 BUN 11 Creatinine 1.14 Est Cr Clr Drug Dosing 60.7 Est GFR ( Amer) 72.5 Est GFR (Non-Af Amer) 62.6 BUN/Creatinine Ratio 9.6 L Glucose 90 Estimat Average Glucose Hemoglobin A1c Calcium 8.5 Magnesium 2.3 Total Bilirubin AST ALT Alkaline Phosphatase Troponin I < 0.015 Total Protein Albumin Globulin Albumin/Globulin Ratio Triglycerides 124 Cholesterol 158 LDL Cholesterol, Calc 83 VLDL Cholesterol, Calc 25 HDL Cholesterol 50 Cholesterol/HDL Ratio 3 Stool Occult Bld Scrn Stool Occult Blood Stool Occult Blood #2 Stool Occult Blood #3 Stl C. diff Tox B Gene Stl C.difficile Tox A&B 12/04/18 05:37 WBC RBC Hgb Hct MCV MCH MCHC RDW Std Deviation RDW Coeff of Valentino Plt Count MPV Immature Gran % (Auto) Neut % (Auto) Lymph % (Auto) [place] % (Auto) Eos % (Auto) Baso % (Auto) Immature Gran # (Auto) Neut # (Auto) Lymph # (Auto) [place] # (Auto) Eos # (Auto) Baso # (Auto) PT INR APTT PTT Ratio Sodium Potassium Chloride Carbon Dioxide Anion Gap BUN Creatinine Est Cr Clr Drug Dosing Est GFR ( Amer) Est GFR (Non-Af Amer) BUN/Creatinine Ratio Glucose Estimat Average Glucose 111 Hemoglobin A1c 5.5 Calcium Magnesium Total Bilirubin AST ALT Alkaline Phosphatase Troponin I Total Protein Albumin Globulin Albumin/Globulin Ratio Triglycerides Cholesterol LDL Cholesterol, Calc VLDL Cholesterol, Calc HDL Cholesterol Cholesterol/HDL Ratio Stool Occult Bld Scrn Stool Occult Blood Stool Occult Blood #2 Stool Occult Blood #3 Stl C. diff Tox B Gene Stl C.difficile Tox A&B Diagnostic Findings EKG normal sinus rhythm with Q waves in inferior leads not change from 2012 Echocardiogram preserved LV systolic function no wall motion normalities EF 55- 60% or greater
[2018-12-04] MEDS ORDERED: PERFLUTREN LIPID MICROSPHERE (DEFINITY) IV ONE (13:12)
--- NOTE | 2018-12-04 16:26 | Hospitalist Progress Note ---
Date of Service December 04, 2018 Assessment & Plan (1) Chest pain: (2) Easy fatigability: (3) ALEXANDER (dyspnea on exertion): This is a 77-year-old male who has a significant past medical history of asthma, HTN, HLD, BPH, history of Graves' disease status post thyroidectomy now on thyroid replacement, history of prostate cancer who presents to [facility] secondary to dyspnea on exertion and chest pain x45 minutes. -chest pain symptoms resolved while in the hospital -troponins negative -resting echocardiogram and stress testing on 12/04/18 did not show evidence for ischemia -then subsequent to stress testing while being in the elevator in the wheelchair patient had episode where he felt very short of breath -patient with normal vital signs when checked on the medical telemetry alaniz other than blood pressur; e in the 160s Hypothyroidism -had radiation to thyroid in the past to treat Graves disease -has been on Levothyroxine at home -continue home dose levothyroxine (4) Hypokalemia: Hypokalemia Hypomagnesemia -serum potassium 2.8 on admission; seurm potassium raised to 3.5 with potassium replacements, additional 40 meq orally given on 12/04/18 -hypokalemia may be from loose stools of use of HCTZ Hypomagnesemia -admission serum magnesium mildly low as 1.8 on admission -hypomagnesemia resolved, continue oral magnesium supplements (5) Hypertension: Hypertension -continue home dose losartan as 100 mg daily -continue verapamil -hold off HCTZ because of hypokalemia -will give additional amlodipine 5 mg daily starting on 12/04/18 for blood pressure control (6) Black stool: -Pt reported dark tarry stool as loose stools or diarrhea -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 but toxins are negative -would not start oral vancomycin at this time -Stool Culture Preliminary No Salmonella isolated to date, No Shigella isolated to date, No Campylobacter jejuni isolated to date -will start loperamide prn q12 hour if diarrhea (7) Asthma: asthma History as per patient -denies smoking for many years -does not have diagnosis of COPD but there is emphysema seen on CTA chest in October 2018 -Continue Advair, as needed albuterol, nasal spray (8) Hypothyroidism: Continue levothyroxine Status post thyroidectomy secondary to Graves' disease Last TSH 12/02 WNL (9) BPH (benign prostatic hyperplasia): Continue Flomax (10) History of pulmonary embolism: Not on anticoagulants at this time Recent CTA chest in October 2018 with no evidence of pulmonary embolism Subjective -resting echocardiogram and stress testing on 12/04/18 did not show evidence for ischemia -then subsequent to stress testing while being in the elevator in the wheelchair patient had episode where he felt very short of breath -patient with normal vital signs when checked on the medical telemetry alaniz; blood pressure in the 160s patient denies dizziness, of headache, afterwards feels better and more calm. no vomiting. discussed the goals of the care and he and his would prefer that patient stay over night for further monitoring in case of more unusual symptoms and for better blood pressure control and potassium repletion Physical Exam Eyes: PERRL, conjunctivae normal, anicteric sclerae EOM intact bilaterally ENMT: external ear and nose normal, oropharynx normal Neck: trachea midline, no thyromegaly normal visual inspection Respiratory: normal respiratory effort, lungs clear to auscultation Cardiovascular: RRR, no murmur, no edema Gastrointestinal (Abdomen): normal bowel sounds, soft, nontender, no hepatosplenomegaly Musculoskeletal: no cyanosis or clubbing, extremities motor strength 5/5 Head/Neck/Chest: normocephalic and head atraumatic Neurologic: PERRL, EOMI, accommodation nl, no face palsy, no dysarthria CN 's II-XI intact bilaterally Psychiatric: A+Ox3, euthymic affect Results & Data Vital Signs (Past 12 Hours) Vital Signs Temp Pulse Pulse Resp BP Pulse Ox 12/04/18 15:02 36.7 C 72 18 164/79 H 95 12/04/18 13:43 114 H 44 H 137/82 95 12/04/18 11:48 36.6 C 78 18 151/73 H 96 12/04/18 08:00 60 12/04/18 07:48 36.6 C 69 18 144/79 H 95 12/04/18 04:27 36.7 C 66 18 143/69 H 95 (1) Chest pain Chest pain type: unspecified Qualified Code(s): R07.9 - Chest pain, unspecified
[2018-12-04] MEDS ORDERED: LOPERAMIDE HCL 2 MG CAP PO PRN (16:33)
[2018-12-04] MEDS: POTASSIUM CHLORIDE 10 MEQ TABCR PO SCH (16:38)
[2018-12-04] MEDS: AMLODIPINE BESYLATE 5 MG TAB PO SCH (18:06)
[2018-12-04] MEDS: VERAPAMIL HCL 240 MG TABCR PO SCH (21:01)
[2018-12-04] MEDS: TAMSULOSIN HCL 0.4 MG CAP PO SCH (21:03)
[2018-12-05] MEDS: LEVOTHYROXINE SODIUM 137 MCG TABLET PO SCH (06:10)
[2018-12-05] MEDS: HEPARIN SOD 5,000 UNIT/0.5 ML VIAL SQ SCH ×3 (06:11→22:01)
[2018-12-05 06:22] LABS: Basophils # (auto) 0.04 K/uL (0-0.2); Basophils % (auto) 0.7 %; Eosinophils # (auto) 0.32 K/uL (0-0.5); Eosinophils % (auto) 5.3 %; Hematocrit (blood only) 38.9 % (42-52); Hemoglobin 13.8 g/dL (14.0-18.0); Immature Granulocytes # (auto) 0.04 K/uL (0.00-0.02); Immature Granulocytes % (auto) 0.7 %; Lymphocytes # (auto) 1.41 K/uL (1.2-3.4); Lymphocytes % (auto) 23.2 %; Mean Corpuscular Hgb Conc 35.5 g/dL (32-36); Mean Platelet Volume 10.1 fL (7.4-10.4); Monocytes # (auto) 0.73 K/uL (0.11-0.59); Neutrophils # (auto) 3.53 K/uL (1.4-6.5); Neutrophils % (auto) 58.1 %; Platelet Count 153 K/uL (130-400); RDW Coefficient of Variation 14.2 % (11.5-14.5); RDW Standard Deviation 44.9 fL (36.4-46.3); Red Blood Count 4.47 M/uL (4.7-6.1); White Blood Count 6.07 K/uL (4.8-10.8)
[2018-12-05 06:53] LABS: BUN Creatinine Ratio 13.7 (10-20); Calcium 8.4 mg/dl (8.5-10.1); Creatinine Clr Calc Pharmacy 62.1 ml/min; Est GFR (African American) 76.5; Potassium 3.7 mmol/L (3.5-5.1)
[2018-12-05] MEDS: POTASSIUM CHLORIDE 10 MEQ TABCR PO SCH (08:43)
[2018-12-05] MEDS: LOSARTAN POTASSIUM 50 MG TAB PO SCH (08:44)
[2018-12-05] MEDS: FLUTICASONE/SALMETEROL 250/50 (ADVAIR) 14 PUFF/1 INHALER INH SCH ×2 (08:44→21:59)
[2018-12-05] MEDS: ATORVASTATIN 20 MG TAB PO SCH (08:44)
[2018-12-05] MEDS: LACTOBACILLUS ACIDOPHILUS (FLORANEX) TAB PO SCH ×2 (08:44→22:01)
[2018-12-05] MEDS: TRIAMCINOLONE ACET NASAL SPRAY 10.8ML BTL NAE SCH (08:45)
[2018-12-05] MEDS: MAGNESIUM OXIDE 400 MG TAB PO SCH (08:45)
[2018-12-05] MEDS: SERTRALINE HCL 50 MG TABLET PO SCH (08:45)
[2018-12-05] MEDS: ASPIRIN 81 MG ECTAB PO SCH (08:45)
[2018-12-05] MEDS: AMLODIPINE BESYLATE 5 MG TAB PO SCH (08:45)
--- NOTE | 2018-12-05 14:27 | Cardiology Progress Note ---
Date of Service December 05, 2018 Assessment & Plan (1) ALEXANDER (dyspnea on exertion): Patient continues to have episodic events of acute dyspnea without overt cause. Stress radiography negative for ischemia there was symptomatic complaints of medially after exertion. Discussed in detail with patient and family We will opt for diagnostic cardiac catheterization to exclude ischemic heart disease and then proceed with further investigations. He is scheduled for same- day procedure in a.m. Procedure and risks explained Patient to be n.p.o. after midnight Verapamil increased as part of antihypertensive regimen yesterday. Will maintain telemetry for monitoring of tachycardia or bradycardia arrhythmias (2) Easy fatigability: (3) Hypertension: Subjective Was seen and examined, chart medications telemetry reviewed. Patient underwent stress to cardiography yesterday study negative for stress-induced ischemia however on return to floor while in route developed severe dyspnea nausea and lightheadedness. No overt change in blood pressure heart rate observed with symptoms resolving. Has had no further spells since that time. Notes no melena hematochezia dysuria hematuria remains concerned regarding episodic complaints dating back to May 2018. Notes no wheezing or productive cough. Telemetry demonstrates no arrhythmias Review of Systems Review of Systems: As per HPI Physical Exam Constitutional: WD/WN, vitals as above Eyes: + eyes dysmorphic ENMT: external ear and nose normal, oropharynx normal Neck: trachea midline, no thyromegaly Respiratory: normal respiratory effort, lungs clear to auscultation Cardiovascular: Rate/Rhythm: regular rate and regular rhythm Heart Sounds: normal S1 and normal S2; no gallop and no murmur Vessels: no JVD Extremities: no edema Musculoskeletal: no cyanosis or clubbing, extremities motor strength 5/5 Skin: no rashes, warm and dry Neurologic: moves all extremities Motor/Sensory: no tremor Results & Data Vital Signs (Past 12 Hours) Vital Signs Temp Pulse Pulse Resp BP Pulse Ox 12/05/18 07:07 64 12/05/18 07:00 36.4 C L 61 16 137/70 93 12/05/18 04:06 36.6 C 60 16 126/66 95 Laboratory Results Laboratory Results - last 24 hr 12/05/18 12/05/18 06:03 06:03 WBC 6.07 RBC 4.47 L Hgb 13.8 L Hct 38.9 L MCV 87.0 MCH 30.9 MCHC 35.5 RDW Std Deviation 44.9 RDW Coeff of Valentino 14.2 Plt Count 153 MPV 10.1 Immature Gran % (Auto) 0.7 Neut % (Auto) 58.1 Lymph % (Auto) 23.2 [place] % (Auto) 12.0 Eos % (Auto) 5.3 Baso % (Auto) 0.7 Immature Gran # (Auto) 0.04 H Neut # (Auto) 3.53 Lymph # (Auto) 1.41 [place] # (Auto) 0.73 H Eos # (Auto) 0.32 Baso # (Auto) 0.04 Sodium 141 Potassium 3.7 Chloride 112 H Carbon Dioxide 23 Anion Gap 6.0 BUN 15 Creatinine 1.09 Est Cr Clr Drug Dosing 62.1 Est GFR ( Amer) 76.5 Est GFR (Non-Af Amer) 66.0 BUN/Creatinine Ratio 13.7 Glucose 87 Calcium 8.4 L
--- NOTE | 2018-12-05 14:44 | Hospitalist Progress Note ---
Date of Service December 05, 2018 Assessment & Plan (1) Chest pain: (2) Easy fatigability: (3) ALEXANDER (dyspnea on exertion): This is a 77-year-old male who has a significant past medical history of asthma, HTN, HLD, BPH, history of Graves' disease status post thyroidectomy now on thyroid replacement, history of prostate cancer who presents to [facility] secondary to dyspnea on exertion and chest pain x45 minutes. -chest pain symptoms resolved while in the hospital -troponins negative -resting echocardiogram and stress testing on 12/04/18 did not show evidence for ischemia -then subsequent to stress testing while being in the elevator in the wheelchair patient had episode where he felt very short of breath; patient with normal vital signs when checked on the medical telemetry alaniz other than blood pressure in the 160s; and patient much more calm and not in distress without any interventions -discussed hospital course at length with patient and patient's family and cardiology service, observation status has been upgraded to admission status, and patient to get cardiac cath on 12/06/18 Hypothyroidism -had radiation to thyroid in the past to treat Graves disease -has been on Levothyroxine at home -continue home dose levothyroxine (4) Hypokalemia: Hypokalemia Hypomagnesemia -serum potassium 2.8 on admission; serum potassium raised to 3.5 with potassium replacements, additional 40 meq orally given on 12/04/18 -hypokalemia may be from loose stools of use of HCTZ -hypokalemia has resolved for now, continue loperamide prn Hypomagnesemia -admission serum magnesium mildly low as 1.8 on admission -hypomagnesemia resolved, continue oral magnesium supplements -hypomagnesemia has resolved for now, continue loperamide prn (5) Hypertension: Hypertension -hold off HCTZ because of hypokalemia -was given additional amlodipine 5 mg daily starting on 12/04/18 for blood pressure control -12/05/18 amlodipine discontinued by cardiology service and verapamil increased from 120 mg to 180 mg daily -continue home dose losartan as 100 mg daily (6) Black stool: -Pt reported dark tarry stool as loose stools or diarrhea -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 but toxins are negative -would not start oral vancomycin at this time -Stool Culture Preliminary No Salmonella isolated to date, No Shigella isolated to date, No Campylobacter jejuni isolated to date -loperamide prn q12 hour if diarrhea (7) Asthma: asthma History as per patient -denies smoking for many years -does not have diagnosis of COPD but there is emphysema seen on CTA chest in October 2018 -Continue Advair, as needed albuterol, nasal spray (8) Hypothyroidism: Continue levothyroxine check TSH and T4 Status post thyroidectomy secondary to Graves' disease (9) BPH (benign prostatic hyperplasia): Continue Flomax (10) History of pulmonary embolism: Not on anticoagulants at this time Recent CTA chest in October 2018 with no evidence of pulmonary embolism Continue SHILA stockings Subjective Patient today without chest pain or shortness of breath. breathing on room air. Patient with his family still very concerned about possible future chest discomfort symptoms despite during negative stress test on 12/04/18 as patient subsequently had shortness of breath symptoms after the stress test as patient returned to the medical alaniz. Patient and patient's family members had multiple discussions with hospitalist and card fixer service. Patient scheduled to have cardiac cath on 12/06/18. currently patient sitting in chair with no distress. reports less frequent loose stools. denies abdominal pain. no vomiting. no lightheadedness. no dizziness. no changes in mental status Physical Exam Eyes: PERRL, conjunctivae normal, anicteric sclerae EOM intact bilaterally ENMT: external ear and nose normal, oropharynx normal Neck: trachea midline, no thyromegaly normal visual inspection Respiratory: normal respiratory effort, lungs clear to auscultation Cardiovascular: RRR, no murmur, no edema Gastrointestinal (Abdomen): normal bowel sounds, soft, nontender, no hepatosplenomegaly Musculoskeletal: no cyanosis or clubbing, extremities motor strength 5/5 Head/Neck/Chest: normocephalic and head atraumatic Neurologic: PERRL, EOMI, accommodation nl, no face palsy, no dysarthria CN's II-XI intact bilaterally Psychiatric: A+Ox3, euthymic affect Results & Data Vital Signs (Past 12 Hours) Vital Signs Temp Pulse Pulse Resp BP Pulse Ox 12/05/18 07:07 64 12/05/18 07:00 36.4 C L 61 16 137/70 93 12/05/18 04:06 36.6 C 60 16 126/66 95 (1) Chest pain Chest pain type: unspecified Qualified Code(s): R07.9 - Chest pain, unspecified
[2018-12-05] MEDS: TAMSULOSIN HCL 0.4 MG CAP PO SCH (22:03)
[2018-12-05] MEDS: VERAPAMIL HCL 240 MG TABCR PO SCH (22:15)
[2018-12-05] MEDS: VERAPAMIL HCL 180 MG TABCR PO SCH (22:40)
[2018-12-06] MEDS: SODIUM CHLORIDE 0.9% 1000ML 1,000 ML IV SCH ×2 (00:16→23:08)
[2018-12-06] MEDS: HEPARIN SOD 5,000 UNIT/0.5 ML VIAL SQ SCH ×3 (06:33→21:27)
[2018-12-06] MEDS: LEVOTHYROXINE SODIUM 150 MCG TABLET PO SCH (07:05)
[2018-12-06] MEDS: FLUTICASONE/SALMETEROL 250/50 (ADVAIR) 14 PUFF/1 INHALER INH SCH ×2 (07:05→21:23)
[2018-12-06 07:43] LABS: Albumin Level 3.3 gm/dl (3.4-5.0); BUN Creatinine Ratio 12.4 (10-20); Calcium 8.8 mg/dl (8.5-10.1); Creatinine Clr Calc Pharmacy 60.8 ml/min; Est GFR (African American) 74.1; Est GFR (Non-African American) 63.9; Magnesium 2.4 mg/dl (1.8-2.4); Potassium 3.5 mmol/L (3.5-5.1)
[2018-12-06 07:54] LABS: Albumin Globulin Ratio 0.9 (0.9-2); Bilirubin,Total 0.6 mg/dl (0.2-1); Globulin 3.5 gm/dl (2.5-4.0); Total Protein 6.8 gm/dl (6.4-8.2)
[2018-12-06] MEDS ORDERED: MIDAZOLAM HCL 1 MG/ML 2ML VIAL ONE (10:30)
[2018-12-06] MEDS ORDERED: HEPARIN (PORCINE) 1000 UNIT/ML 10 ML (CATH LAB USE ONLY) ONE ×2 (10:31→12:41)
[2018-12-06] MEDS ORDERED: NITROGLYCERIN/D5W 100MCG/ML 20ML SYR ONE (10:31)
[2018-12-06] MEDS ORDERED: fentaNYL citrate 100 MCG/2 ML VIAL ONE (10:31)
--- NOTE | 2018-12-06 11:42 | Cardiac Catheterization ---
Cardiac Cath Procedure Full Procedure Date December 06, 2018 Pre-Procedure Diagnosis Pre-Procedure Diagnosis: Angina AUC Score AUC Score: 8 Post-Procedure Diagnosis Post-Procedure Diagnosis: Severe CAD Procedure(s) Performed Procedure(s) Performed: Coronary Angiography and Left Heart Cath Music Supervisor Ant Bowie MD Core Feeder(s) [place] Estimated Blood Loss Estimated Blood Loss: <15c Medication(s) Medication(s): Fentanyl (12.5 mcg IV), Heparin (5000 units IV), Lidocaine 1% (Local infiltration access site), Nicardipine (250 mcg intra-arterial after arterial access gained) and Versed (1 mg IV) Summary of Findings Right dominant coronary anatomy Left main relatively short normal caliber with mild calcification and no obstruction Left anterior descending: Type III in distribution a small first diagonal and large second diagonal in its proximal and mid portions. Within the left ante rior descending there is calcification of its proximal segment with a long 60% stenosis encompassing the origins of both diagonal branches Left circumflex: Large caliber vessel with proximal atrial branch and a small first marginal and large trifurcating obtuse marginal. Within the proximal circumflex there is a 90% calcified lesion with moderate irregularities in the distal vessel Right coronary artery: Dominant anatomy giving rise to a large right ventricular branch in its midportion, a long posterior descending artery and a long posterior ventricular branch. There are mild irregularities in the proximal vessel and a 50% narrowing in the mid posterior descending artery. LV angiography not performed. 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 Cardiac Status Clinical evaluation leading to the procedure CAD Presenation: Unstable angina Anginal Classification: CCS III Cardiogenic Shock within 24 Hours: No Cardiac Arrest within 24 Hours: No Imaging Studies Past 6 Months: Yes Stress Studies Past 6 Months: Yes Standard Exercise Test: No Stress Echocardiogram: Yes - Indeterminant Coronary Anatomy Dominant: Right Left Main (% Stenosis): Normal LAD (% Stenosis): Proximal (60) D1 (% Stenosis): Ostial (70) D2 (% Stenosis): Normal Circumflex (% Stenosis): Proximal (90) OM1 (% Stenosis): Normal OM2 (% Stenosis): Normal RCA (% Stenosis): Normal R PDA (% Stenosis): Normal R PL1 (% Stenosis): Normal Diagnostic Physicians Name: nAt Bowie MD Status: Urgent Closure Device Percutaneous Entry Location: Radial Closure Device: Radial Band Recommendations: PCI without planned CABG
[2018-12-06] MEDS ORDERED: ADENOSINE IV SOLN 3 MG/ML 20 ML VIAL IV ONE (12:03)
[2018-12-06] MEDS ORDERED: CLOPIDOGREL BISULFATE 300 MG TAB ONE (13:10)
--- NOTE | 2018-12-06 13:13 | Post Anesthesia Assessment ---
Date of Service December 06, 2018 Post Sedation Assessment Vital Signs Temp Pulse Pulse Resp BP BP Pulse Ox 12/06/18 07:57 36.5 C 62 18 123/67 94 12/06/18 07:20 89 12/06/18 03:27 36.4 C L 69 18 129/75 96 12/05/18 23:38 36.5 C 77 18 159/73 H 97 12/05/18 19:50 36.3 C L 71 20 137/80 95 12/05/18 16:07 36.5 C 86 17 149/70 H 96 12/05/18 15:12 72 12/05/18 15:06 36.6 C 71 20 144/75 H 95 Recovery Score Activity: Moves 4 extremities Respiration: Deep Breath/Cough Circulation: +/-20% PreAnes Value Consciousness: Fully Awake Oxygen Saturation: O2 needed for >90% Discharge Sedation Level of Care: Fast Track Phase II Post Sedation Plan On clinical assessment, the patient appears to have tolerated the sedation without complications. Patient is recovering as anticipated. Patient will continue to be monitored by nursing and may be discharged when sedation discharge criteria are met per below protocol. Upon Completions of procedure and additional 15 minutes continue every 5 minute vital signs and the P.A.R. score; then discharge to a Phase I or Fast Track to Phase II per the following guidelines: * Discharge Patient to appropriate Phase II area if PAR is 8 or greater or return to pre- procedure baseline. The post - procedure orders will be as directed. * If PAR score is less than 8 or not return to pre-procedure baseline then patient will follow Phase I monitoring till PAR is reached for Phase II. The Phase I may be done in procedure room or may call to secure a Phase I area. * If naloxone or flumazenil are used for reversal, hold in Phase I for continued monitoring from when last reversal dose was given for a minimum of 60 minutes or longer pending the nurse and/or physician discretion of patient condition before discharge to Phase II. Please call the Sedation Physician to re-evaluate and complete post-note for discharge to Phase II area. Do NOT discharge from procedure sedation or Phase 1 until post- sedation evaluation note is complete by procedure /sedation MD Sedation Discharge Instructions to be given to the patient at discharge to home.
[2018-12-06] MEDS ORDERED: SODIUM CHLORIDE 0.9% 1000ML 1,000 ML IV SCH (13:15)
--- NOTE | 2018-12-06 13:15 | Cardiac Catheterization ---
Cardiac Cath Procedure Full Procedure Date December 06, 2018 Pre-Procedure Diagnosis Pre-Procedure Diagnosis: Angina AUC Score AUC Score: 8 Post-Procedure Diagnosis Post-Procedure Diagnosis: Severe CAD and Successful PCI Procedure(s) Performed Procedure(s) Performed: Coronary Angiography, Drug Eluting Stent, IVUS and Fractional Flow [place] Certified [employer] Waste Facility Operator Chase Cotter MD Bone Crusher(s) [place] Estimated Blood Loss Estimated Blood Loss: 20 Medication(s) Medication(s): Clopidogrel, Fentanyl (12.5 mcg IV), Heparin (5000 units IV), Nicardipine (250 mcg intra-arterial after arterial access gained), Nitroglycerin and Versed (1 mg IV) Summary of Findings PCI to LAD with 2 MARY PCI to circumflex with single MARY Recommendations Recommendations: PCI without planned CABG Specimens Specimens: None Fluids (cc crystalloids) Fluids (cc crystalloids): 64 Anesthesia moderate Procedural Complication(s) None Disposition PCU 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
[2018-12-06] MEDS: LACTOBACILLUS ACIDOPHILUS (FLORANEX) TAB PO SCH ×2 (13:44→21:26)
[2018-12-06] MEDS: LOSARTAN POTASSIUM 50 MG TAB PO SCH (13:44)
[2018-12-06] MEDS: POTASSIUM CHLORIDE 10 MEQ TABCR PO SCH (13:45)
[2018-12-06] MEDS: MAGNESIUM OXIDE 400 MG TAB PO SCH (13:45)
[2018-12-06] MEDS: ASPIRIN 81 MG ECTAB PO SCH (13:46)
[2018-12-06] MEDS: SERTRALINE HCL 50 MG TABLET PO SCH (13:46)
[2018-12-06] MEDS: ATORVASTATIN 20 MG TAB PO SCH (13:46)
[2018-12-06] MEDS: TRIAMCINOLONE ACET NASAL SPRAY 10.8ML BTL NAE SCH (13:46)
--- NOTE | 2018-12-06 14:53 | Cardiology Progress Note ---
Date of Service December 06, 2018 Assessment & Plan (1) Two-vessel coronary artery disease: Status post cardiac catheterization and coronary intervention with excellent initial result Aspirin and clopidogrel continued Will increase atorvastatin dosing (2) ALEXANDER (dyspnea on exertion): Likely anginal equivalent with nondiagnostic stress echocardiogram (circumflex distribution disease ) Expect symptomatic improvement (3) Easy fatigability: (4) Hypertension: Verapamil increased Subjective Patient seen and examined, chart medications telemetry reviewed. Cardiac catheterization as outlined on chart study demonstrating two-vessel coronary disease high-grade circumflex and proximal LAD lesions identified patient underwent stenting of both vessels with good tolerance. Patient feeling well post procedure EKG post procedure without abnormality in comparison to baseline Patient reexamined post diagnostic cardiac catheterization and coronary intervention. Doing well no complaints right radial access site healing. No chest pains or discomfort no bleeding difficulties tolerated procedure well Physical Exam Constitutional: WD/WN, vitals as above Eyes: + eyes dysmorphic ENMT: external ear and nose normal, oropharynx normal Neck: trachea midline, no thyromegaly Respiratory: normal respiratory effort, lungs clear to auscultation Cardiovascular: Rate/Rhythm: regular rate and regular rhythm Heart Sounds: normal S1 and normal S2; no gallop and no murmur Vessels: radial pulses present (Right radial access site healing); no JVD Extremities: no edema Musculoskeletal: no cyanosis or clubbing, extremities motor strength 5/5 Skin: no rashes, warm and dry Neurologic: moves all extremities Motor/Sensory: no tremor Results & Data Vital Signs (Past 12 Hours) Vital Signs Temp Pulse Pulse Resp BP Pulse Ox 12/06/18 14:18 77 12/06/18 14:15 90 137/83 12/06/18 14:00 82 187/84 H 12/06/18 13:45 74 184/83 H 12/06/18 13:30 36.4 C L 68 18 167/87 H 98 12/06/18 07:57 36.5 C 62 18 123/67 94 12/06/18 07:20 89 12/06/18 03:27 36.4 C L 69 18 129/75 96 (1) Hypertension Hypertension type: essential hypertension Qualified Code(s): I10 - Essential (primary) hypertension
--- NOTE | 2018-12-06 16:38 | Cardiac Catheterization ---
Cardiac Cath Procedure Full Procedure Date December 06, 2018 Pre-Procedure Diagnosis Pre-Procedure Diagnosis: Angina AUC Score AUC Score: 8 Post-Procedure Diagnosis Post-Procedure Diagnosis: Severe CAD and Successful PCI Procedure(s) Performed Procedure(s) Performed: Coronary Angiography, Drug Eluting Stent, IVUS and Fractional Flow [place] Medical Coding Specialist Chase Cotter MD Compliance Nurse(s) [place] Pa Estimated Blood Loss Estimated Blood Loss: 20 Medication(s) Medication(s): Clopidogrel, Fentanyl (12.5 mcg IV), Heparin (5000 units IV), Nicardipine (250 mcg intra-arterial after arterial access gained), Nitroglycerin and Versed (1 mg IV) Summary of Findings PCI to LAD with 2 MARY PCI to circumflex with single MARY Indication: Angina Access: 6 Fr right radial artery Catheters: EBU 3.75 guide Findings: For full details of patient's coronary angiography please cath report dictated by Dr. Bowie. Briefly, patient found to have severe proximal circumflex disease and moderate diffuse possible to mid LAD disease Decision to proceed with PCI of proximal circumflex and further assess LAD with FFR --FFR/PCI -- Antithrombotic therapy: Heparin, clopidogrel Procedure: Left main cannulated with EBU 3.75 guide Manager Drug 50 wire passed across proximal circumflex lesion into distal vessel Proximal circumflex lesion predilated with 2.5 compliant balloon Dilated lesion stented with 3.0 x 15 mm [place] MARY Stent post-dilated with 3.0 noncompliant balloon IC vasodilators administered for spasm Post procedure MELISSA 3 flow, stent well expanded with minimal residual stenosis and no apparent cardiac complications. Angled [place] FFR wire navigated into distal LAD FFR 0.45 FFR wire replaced with BMW wire IVUS used to access extent of disease, calcification. Minimal luminal area 2.0 mm in the mid segment. Disease extended back to ostium. Mid to proximal LAD dilated with 2.5 balloon 3.0 x 34 mm Goddard drug-eluting stent placed from ostium of LAD to mid segment Apparent edge dissection in the mid LAD after stent deployment Edge dissection covered with 2.5 x 12 mm Goddard drug-eluting stent Stents postdilated with 3.0 NC balloon IC vasodilators administered for spasm Post procedure MELISSA 3 flow, stent well expanded with minimal residual stenosis and no apparent cardiac complications. Arterial Closure: TR band Summary: 1. Severe 2 vessel coronary artery disease -90+% proximal circumflex Diffuse moderate to severe proximal mid LAD disease (FFR 0.45). 2. Successful PCI of proximal circumflex with single drug-eluting stent (3.0 x 15 mm Vinod). 3. Successful PCI of ostial to mid LAD with 2 overlapping drug-eluting stents (3.0 x 34, 2.5 x 12 mm Goddard). 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 Cardiac Status Clinical evaluation leading to the procedure CAD Presenation: Unstable angina Anginal Classification: CCS III Heart Failure: No Cardiogenic Shock within 24 Hours: No Cardiac Arrest within 24 Hours: No Imaging Studies Past 6 Months: Yes Stress Studies Past 6 Months: No Diagnostic Physicians Name: Chase Cotter MD Status: Elective Closure Device Percutaneous Entry Location: Radial Closure Device: Radial Band Recommendations: PCI without planned CABG PCI Indication: Unstable Angina Lesion Segment Name: proximal circumflex Culprit Artery: Yes Stenosis Prior to Rx (%): 95 Chronic Total Occlusion: No IVUS: No FFR: No Pre-Procedure MELISSA Flow: 3 Previously Treated Lesion: No Lesion Complexity: Non-High/Non-C Lesion Length (mm): 12 Thrombus Present: No Bifurcation Lesion: Yes Guidewire Across Lesion: Stenosis Post-Procedure (%): 0 Post-Procedure MELISSA Flow: 3 Devices(s) Deployed: Yes Yes Lesion #2 Segment Name: Proximal to mid LAD Culprit Artery: No Stenosis Prior to Rx (%): 60-70% Chronic Total Occlusion: No IVUS: Yes FFR: Yes Ratio: less than or equal to 0.75% Pre-Procedure MELISSA Flow: 3 Previously Treated Lesion: No Lesion Complexity: Non-High/Non-C Lesion Length (mm): 38 Thrombus Present: No Bifurcation Lesion: Yes Guidewire Across Lesion: Yes Stenosis Post-Procedure (%): 0 Post-Procedure MELISSA Flow: 3 Devices(s) Deployed: Yes Intraprocedure Events Significant Disection: No Perforation: No
[2018-12-06] MEDS: VERAPAMIL HCL 180 MG TABCR PO SCH (21:25)
[2018-12-06] MEDS: TAMSULOSIN HCL 0.4 MG CAP PO SCH (21:25)
--- NOTE | 2018-12-06 23:49 | Hospitalist Progress Note ---
Date of Service Delayed entry date of service noted below December 06, 2018 Assessment & Plan (1) Two-vessel coronary artery disease: Presented with chest pain, easy fatigability, dyspnea on exertion -chest pain symptoms resolved while in the hospital -troponins negative -resting echocardiogram and stress testing on 12/04/18 did not show evidence for ischemia Status post cardiac cath 12/06/2018 Summary: 1. Severe 2 vessel coronary artery disease -90+% proximal circumflex Diffuse moderate to severe proximal mid LAD disease (FFR 0.45). 2. Successful PCI of proximal circumflex with single drug-eluting stent (3.0 x 15 mm Vinod). 3. Successful PCI of ostial to mid LAD with 2 overlapping drug-eluting stents (3.0 x 34, 2.5 x 12 mm Vinod). -Recommendations by Dr. Bowie: Add Plavix 70 mg p.o. daily to aspirin Increase Lipitor to 40 mg daily Increase verapamil 280 mg p.o. daily Losartan plus HCTZ changed to losartan in light of cardiac catheterization to prevent acute kidney injury Please repeat BMP to check renal function and follow-up with PCP Hypothyroidism -had radiation to thyroid in the past to treat Graves disease -has been on Levothyroxine at home -continue home dose levothyroxine Hypokalemia: Hypomagnesemia --Repleted Hypertension: -12/05/18 amlodipine discontinued by cardiology service and verapamil increased from 120 mg to 180 mg daily Losartan plus HCTZ changed to losartan in light of cardiac catheterization to prevent acute kidney injury Melena, C diff Carrier -Pt reported dark tarry stool as loose stools or diarrhea -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 but toxins are negative -would not start oral vancomycin at this time -Stool Culture Preliminary No Salmonella isolated to date, No Shigella isolated to date, No Campylobacter jejuni isolated to date - diarrhea and melena resolved Hg stable advised to take Probiotics daily, report to PCP when having diarrhea for C diff testing Asthma: -denies smoking for many years -does not have diagnosis of COPD but there is emphysema seen on CTA chest in October 2018 -Continue Advair, as needed albuterol, nasal spray Hypothyroidism: Continue levothyroxine check TSH normal Status post thyroidectomy secondary to Graves' disease BPH (benign prostatic hyperplasia): Continue Flomax History of pulmonary embolism: Not on anticoagulants at this time Recent CTA chest in October 2018 with no evidence of pulmonary embolism Continue SHILA stockings Subjective Follow-up for coronary artery disease Seen resting in bed, comfortable, in good spirits States he feels fine overall Chest pain-free, denies shortness of breath, dizziness, nausea Ambulating with no shortness of breath or any symptom States he feels much better overall No other symptoms Review of Systems Review of Systems: All systems reviewed & are unremarkable except as noted in HPI & below Physical Exam Physical Exam: General- oriented x 3, not in distress, speaks in sentences with no effort or accessory muscle use Eyes- anicteric Neck- no JVD Lungs- clear breath sounds bilaterally, no rales/wheezes Heart- normal rate, regular rhythm; no murmurs Abdomen- normal bowel sounds, nondistended, soft, nontender Extremities- no pretibial edema, no calf tenderness Neuro- alert, oriented x 3; no gross focal neurologic deficits Skin- warm & dry Results & Data Vital Signs (Past 12 Hours) Vital Signs Temp Pulse Pulse Resp BP Pulse Ox 12/06/18 20:00 36.6 C 76 16 176/79 H 96 12/06/18 17:45 75 16 158/73 H 12/06/18 17:30 76 16 167/72 H 12/06/18 17:00 73 16 161/76 H 12/06/18 16:30 67 16 157/73 H 12/06/18 16:00 74 16 149/77 H 12/06/18 15:30 67 16 139/73 95 12/06/18 15:00 70 16 149/76 H 95 12/06/18 14:18 77 12/06/18 14:15 90 137/83 12/06/18 14:00 82 187/84 H 12/06/18 13:45 74 184/83 H 12/06/18 13:30 36.4 C L 68 18 167/87 H 98 Laboratory Results All noted and reviewed
[2018-12-07] MEDS: HEPARIN SOD 5,000 UNIT/0.5 ML VIAL SQ SCH ×2 (05:42→14:03)
[2018-12-07] MEDS: LEVOTHYROXINE SODIUM 137 MCG TABLET PO SCH (05:42)
[2018-12-07] MEDS: FLUTICASONE/SALMETEROL 250/50 (ADVAIR) 14 PUFF/1 INHALER INH SCH (08:00)
[2018-12-07] MEDS: MAGNESIUM OXIDE 400 MG TAB PO SCH (08:01)
[2018-12-07] MEDS: LACTOBACILLUS ACIDOPHILUS (FLORANEX) TAB PO SCH (08:01)
[2018-12-07] MEDS: POTASSIUM CHLORIDE 10 MEQ TABCR PO SCH (08:01)
[2018-12-07] MEDS: ASPIRIN 81 MG ECTAB PO SCH (08:01)
[2018-12-07] MEDS: LOSARTAN POTASSIUM 50 MG TAB PO SCH (08:02)
[2018-12-07] MEDS: SERTRALINE HCL 50 MG TABLET PO SCH (08:02)
[2018-12-07] MEDS: TRIAMCINOLONE ACET NASAL SPRAY 10.8ML BTL NAE SCH (08:02)
[2018-12-07] MEDS ORDERED: ATORVASTATIN 40 MG TAB PO SCH (09:00)
[2018-12-07] MEDS ORDERED: CLOPIDOGREL BISULFATE 75 MG TAB PO SCH (09:00)
--- NOTE | 2018-12-07 14:46 | Cardiology Progress Note ---
Date of Service December 07, 2018 Assessment & Plan (1) Two-vessel coronary artery disease: Status post cardiac catheterization and coronary intervention with excellent result Aspirin and clopidogrel continued Will increase atorvastatin dosing Patient stable for discharge anticipate cardiac rehab as outpatient Follow-up cardiology 3 to 4 weeks time (2) ALEXANDER (dyspnea on exertion): Likely anginal equivalent with nondiagnostic stress echocardiogram (cir cumflex distribution disease ) Expect symptomatic improvement (3) Easy fatigability: (4) Hypertension: Verapamil increased Subjective Patient seen and examined chart medications telemetry reviewed. Subjectively no difficulties overnight. Right radial access is healed well feels well ambulatory in room. No medication intolerances. Underlying history of chronic diarrhea has actually improved as well Review of Systems Review of Systems: As per HPI Physical Exam Constitutional: WD/WN, vitals as above Eyes: + eyes dysmorphic ENMT: external ear and nose normal, oropharynx normal Neck: trachea midline, no thyromegaly Respiratory: normal respiratory effort, lungs clear to auscultation Cardiovascular: Rate/Rhythm: regular rate and regular rhythm Heart Sounds: normal S1 and normal S2; no gallop and no murmur Vessels: radial pulses present (Right radial access site healing); no JVD Extremities: no edema Musculoskeletal: no cyanosis or clubbing, extremities motor strength 5/5 Skin: no rashes, warm and dry Neurologic: moves all extremities Motor/Sensory: no tremor Results & Data Vital Signs (Past 12 Hours) Vital Signs Temp Pulse Pulse Resp BP Pulse Ox 12/07/18 11:05 36.5 C 70 18 138/66 96 12/07/18 07:32 36.6 C 61 18 113/64 95 12/07/18 06:20 49 L 12/07/18 04:00 36.5 C 72 18 117/62 95 (1) Hypertension Hypertension type: essential hypertension Qualified Code(s): I10 - Essential (primary) hypertension
[2018-12-07 15:06] LABS: BUN Creatinine Ratio 12.5 (10-20); Creatinine Clr Calc Pharmacy 70.5 ml/min; Est GFR (African American) 89.3; Potassium 3.7 mmol/L (3.5-5.1)
--- NOTE | 2018-12-07 19:29 | Hospitalist Progress Note ---
Date of Service December 07, 2018 Assessment & Plan (1) Two-vessel coronary artery disease: Presented with chest pain, easy fatigability, dyspnea on exertion -chest pain symptoms resolved while in the hospital -troponins negative -resting echocardiogram and stress testing on 12/04/18 did not show evidence for ischemia Status post cardiac cath 12/06/2018 Summary: 1. Severe 2 vessel coronary artery disease -90+% proximal circumflex Diffuse moderate to severe proximal mid LAD disease (FFR 0.45). 2. Successful PCI of proximal circumflex with single drug-eluting stent (3.0 x 15 mm Vinod). 3. Successful PCI of ostial to mid LAD with 2 overlapping drug-eluting stents (3.0 x 34, 2.5 x 12 mm Vinod). -Recommendations by Dr. Bowie: Add Plavix 70 mg p.o. daily to aspirin Increase Lipitor to 40 mg daily Increase verapamil 280 mg p.o. daily Losartan plus HCTZ changed to losartan in light of cardiac catheterization to prevent acute kidney injury Please repeat BMP to check renal function and follow-up with PCP Hypothyroidism -had radiation to thyroid in the past to treat Graves disease -has been on Levothyroxine at home -continue home dose levothyroxine Hypokalemia: Hypomagnesemia --Repleted Hypertension: -12/05/18 amlodipine discontinued by cardiology service and verapamil increased from 120 mg to 180 mg daily Losartan plus HCTZ changed to losartan in light of cardiac catheterization to prevent acute kidney injury Melena, C diff Carrier -Pt reported dark tarry stool as loose stools or diarrhea -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 but toxins are negative -would not start oral vancomycin at this time -Stool Culture Preliminary No Salmonella isolated to date, No Shigella isolated to date, No Campylobacter jejuni isolated to date - diarrhea and melena resolved Hg stable advised to take Probiotics daily, report to PCP when having diarrhea for C diff testing Asthma: -denies smoking for many years -does not have diagnosis of COPD but there is emphysema seen on CTA chest in October 2018 -Continue Advair, as needed albuterol, nasal spray Hypothyroidism: Continue levothyroxine check TSH normal Status post thyroidectomy secondary to Graves' disease BPH (benign prostatic hyperplasia): Continue Flomax History of pulmonary embolism: Not on anticoagulants at this time Recent CTA chest in October 2018 with no evidence of pulmonary embolism Continue SHILA stockings Position Discharge to home Follow-up with PCP as outlined in discharge summary follow-up with solar sales representative and assessor as scheduled Subjective Follow-up for coronary artery disease Seen resting in bed, comfortable, not in distress, in good spirits No recurrence of chest pain, shortness of breath Denies any new complaints States he feels much better overall States he is ready would like to be discharged today Review of Systems Review of Systems: All systems reviewed & are unremarkable except as noted in HPI & below Physical Exam Physical Exam: General- oriented x 3, not in distress, speaks in sentences with no effort or accessory muscle use Eyes- anicteric Neck- no JVD Lungs- clear breath sounds bilaterally, no crackles, no wheezing Heart- normal rate, regular rhythm; no murmurs Abdomen- normal bowel sounds, nondistended, soft, nontender Extremities- no pretibial edema, no calf tenderness Neuro- alert, oriented x 3; no gross focal neurologic deficits Skin- warm & dry Results & Data Vital Signs (Past 12 Hours) Vital Signs Temp Pulse Pulse Resp BP Pulse Ox 12/07/18 15:25 36.5 C 76 70 18 138/66 96 12/07/18 11:05 36.5 C 70 18 138/66 96 12/07/18 07:32 36.6 C 61 18 113/64 95 Laboratory Results Laboratory Results - last 24 hr 12/07/18 14:20 Sodium 140 Potassium 3.7 Chloride 110 H Carbon Dioxide 24 Anion Gap 6.0 BUN 12 Creatinine 0.96 Est Cr Clr Drug Dosing 70.5 Est GFR ( Amer) 89.3 Est GFR (Non-Af Amer) 77.0 BUN/Creatinine Ratio 12.5 Glucose 90 Calcium 9.0
--- NOTE | 2018-12-07 19:30 | Discharge Summary ---
Date of Service December 07, 2018 Admission HPI Per Admitting Provider This is a 77-year-old male who has a significant past medical history of asthma, HTN, HLD, BPH, history of Graves' disease status post thyroidectomy now on thyroid replacement, history of prostate cancer who presents to [facility] secondary to dyspnea on exertion and chest pain x45 minutes. Multiple worried family members at bedside. Agapito miller was standing talking to family in his home whenever family noticed him to become very, "white." They encourage him to sit down as patient was feeling lightheaded. He then was sitting in his recliner whenever he developed acute onset of shortness of breath, left-sided chest discomfort associated with tingling/numbness to left neck and arm that persisted for approximately 45 minutes. EMS was summoned. Sx improved with administration of Oxygen. Family also reports patient wasn't making sense and didn't know who the president was. Unfortunately these sx started back in late may whenever patient was out hunting when he developed similar lightheadedness, chest discomfort and ALEXANDER. Sx resolved with going back to camp and resting. Sx have been off and on but becoming progressively worse and more frequent over the past few months accordingly to family members. Normally pt would chop wood and be very active and now it is very difficult to do simple chores around the house without getting short of breath, for example making the bed. That dyspnea on exertion and easy fatigability, increased somnolence is what has been debilitating him most. He has tried prn albuterol without relief. He elicits intermittent lightheadedness specifically when walking or standing for long duration feeling like he could, "pass out." He complains of freq ALEXANDER, fatigue, easy fatigability, decreased appetite, 6 pound weight loss in 1 month, frequent loose bowel movements throughout the day. He states he normally has a normal bowel movement in the morning and then will have approximately 8-10 loose stools throughout the day and describes them as black dark and tarry. He has been having stool incontinence and this has been going on for several months. Family notes he does have a GI appointment due to his loose stools as well as stool incontinence in 2 weeks. He denies any recent fever, chills, sweats, falls, palpitations, emesis, abdominal pain. He was hospitalized here at [facility] ED October 31-2018 in which he presented with chest pain/epigastric pain, nausea, emesis, productive cough. At that time he was diagnosed with bibasilar pneumonia and treated with IV antibiotics and transition to oral course of Levaquin. He presented to outpatient urgent clinic yesterday and saw Dr. Phillips. He presented secondary to worsening shortness of breath and according to note reported cough, although patient denies this today. 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 Lab work done at that visit revealed TSH WNL, K3.4. Family at bedside is very concerned and states, "everyone just keeps thinking it his lung and nobody will look at his heart." 1 of his daughters who is a nurse at bedside states that she has seen a significant difference in her father in the past 3 to 6 months and is affecting his life. Patient had cardiac work-up includes nuclear stress test back in 2015 which was discontinued secondary to dyspnea but was otherwise unremarkable. He underwent cardiac catheterization at [facility] several years ago with no evidence of significant coronary artery disease as well as a stress test in 2013 and 2015 that was negative. He was last seen by cardiology 09/19/2015. He has a prior history of smoking but quit back in the 1970s. He states he has dealt with asthma for many years but was never formally diagnosed with COPD. Occasional alcohol use although rare. Admission Exam Per Admitting Provider Gen: WD/WN, M, NAD, sitting up in bed, pleasant, conversing easily Head: Normocephalic, Atraumatic Eyes: Sclera normal, no conjunctival injection, PERRLA, EOMI ENT: Gross hearing intact, normal pharynx, mucous membranes moist Neck: supple, no adenopathy, No JVD, no bruit, Resp: Clear to auscultation b/l, no wheeze, rales, rhonchi. 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 Extremities: No edema bilaterally Skin: warm, moist, no rash, negative turgor, cap refill < 2sec, BCC excision on medial aspect of right calf Neuro: Alert and oriented x 3, speech normal, good mood/affect, cran nerve 2-12 intact grossly : deferred Principal Diagnosis Two-vessel coronary artery disease status post stent placement Discharge Exam General- oriented x 3, not in distress, speaks in sentences with no effort or accessory muscle use Eyes- anicteric Neck- no JVD Lungs- clear breath sounds bilaterally, no crackles, no wheezing Heart- normal rate, regular rhythm; no murmurs Abdomen- normal bowel sounds, nondistended, soft, nontender Extremities- no pretibial edema, no calf tenderness Neuro- alert, oriented x 3; no gross focal neurologic deficits Skin- warm & dry Discharge Data Allergies Allergy/AdvReac Type Severity Reaction Status Date / Time codeine AdvReac Mild N/V Verified 12/03/18 14:53 Consultations 12/03/18 15:03 ED Decision to Admit Stat 12/03/18 16:17 Consult Cardiology Routine 12/04/18 07:36 Consult Gastroenterology Routine 12/06/18 13:16 Consult Cardiac Rehabilitation Routine Procedures Performed Operation Date: 12/06/18 10:00 Actual Procedures p Cath, Left with Cors and Vent - Ant Bowie MD s Cineradiography w/Routine Exam - Ant Bowie MD s Drug Eluting Stent SGl Vessel - Justin Cotter MD s Fraction Flow [place] SGL Ves - Justin Cotter MD s IVUS Coronary Single Vessel - Justin Cotter MD s Drug Eluting Stent each ADDTL Vessel - Justin Cotter MD Ordered Studies 12/06/18 06:44 CL Cath Imgs for PACS use only Routine Hospital Course (1) Two-vessel coronary artery disease: Presented with chest pain, easy fatigability, dyspnea on exertion -chest pain symptoms resolved while in the hospital -troponins negative -resting echocardiogram and stress testing on 12/04/18 did not show evidence for ischemia Status post cardiac cath 12/06/2018 Summary: 1. Severe 2 vessel coronary artery disease -90+% proximal circumflex Diffuse moderate to severe proximal mid LAD disease (FFR 0.45). 2. Successful PCI of proximal circumflex with single drug-eluting stent (3.0 x 15 mm Draper). 3. Successful PCI of ostial to mid LAD with 2 overlapping drug-eluting stents (3.0 x 34, 2.5 x 12 mm Vinod). -Recommendations by Dr. Bowie: Add Plavix 70 mg p.o. daily to aspirin Increase Lipitor to 40 mg daily Increase verapamil 180 mg p.o. daily Losartan plus HCTZ changed to losartan in light of cardiac catheterization to prevent acute kidney injury Please repeat BMP to check renal function and follow-up with PCP Hypothyroidism -had radiation to thyroid in the past to treat Graves disease -has been on Levothyroxine at home -continue home dose levothyroxine Hypokalemia: Hypomagnesemia --Repleted Hypertension: -12/05/18 amlodipine discontinued by cardiology service and verapamil increased from 120 mg to 180 mg daily Losartan plus HCTZ changed to losartan in light of cardiac catheterization to prevent acute kidney injury Melena, C diff Carrier -Pt reported dark tarry stool as loose stools or diarrhea -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 but toxins are negative -would not start oral vancomycin at this time -Stool Culture Preliminary No Salmonella isolated to date, No Shigella isolated to date, No Campylobacter jejuni isolated to date - diarrhea and melena resolved Hg stable advised to take Probiotics daily, report to PCP when having diarrhea for C diff testing Asthma: -denies smoking for many years -does not have diagnosis of COPD but there is emphysema seen on CTA chest in October 2018 -Continue Advair, as needed albuterol, nasal spray Hypothyroidism: Continue levothyroxine check TSH normal Status post thyroidectomy secondary to Graves' disease BPH (benign prostatic hyperplasia): Continue Flomax History of pulmonary embolism: Not on anticoagulants at this time Recent CTA chest in October 2018 with no evidence of pulmonary embolism Continue SHILA stockings Position Discharge to home Follow-up with PCP as outlined in discharge summary follow-up with manager monitoring as scheduled Total Time Total Time Spent Total Time Spent (In Minutes): 45 minutes Discharge Plan Discharge Items Patient Disposition: Home - Self-Care Reason For Visit: ALEXANDER,CHEST PAIN Discharge Diagnosis: CORONARY ARTERY DISEASE Discharge Goals: Diagnostic testing and Therapeutic intervention Activity: As commented below Activity Comment: NO HEAVY EXERTION UNTIL RE-EVALUATED BY PRIMARY CARE PHYSICIAN Lifting: Wait until after follow-up appointment Exercise/Sports: Wait until after follow-up appointment Driving/Machine Use Comment: NO DRIVING UNTIL RE-EVALUATED BY PRIMARY CARE PHYSICIAN AND PIECE GOODS PACKER Non-emergency contact: Primary Care Provider and Information Broker Call non-emergency contact if: you have any medication questions, your symptoms worsen, you have a fever, your wound has increased redness, your wound has increased drainage and your wound pain has increased Follow-up/Referrals: Donn Garcia MD [Primary Care Provider] - 12/12/18 10:45 am Diet: Heart Healthy Addtl Provider Instructions: PLEASE REVIEW YOUR NEW MEDICATION LIST AND FOLLOW INSTRUCTIONS CAREFULLY. FOLLOW UP WITH DR. GARCIA OUTLINED ABOVE. FOLLOW UP WITH [facility] PIECE [employer] PACKER DR. BOWIE IN 3-4 WEEKS. PLEASE CALL HIS OFFICE FOR AN APPOINTMENT. Home Care: * Take your medications exactly as directed. Don't skip doses. * Ask your doctor about joining a heart rehabilitation program. * If you are having chest pain, call 911 for an ambulance. Do NOT drive yourself to the hospital. * Ask your family members to learn CPR. * Learn to take your own blood pressure and pulse. Keep a record of your results. Ask your doctor when you should seek emergency medical attention. He or she will tell you which blood pressure reading is dangerous. Lifestyle Changes: * Maintain a healthy weight. Get help to lose any extra pounds. * Cut back on salt. * Limit canned, dried, packaged, and fast foods. * Don't add salt to your food. * Season foods with herbs instead of salt when you cook. * Break the smoking habit. Enroll in a stop-smoking program to improve your chances of success. * Limit fatty foods. * Ask your doctor about having your lipid levels checked regularly. * Build up your activity according to your doctor's recommendation. * Ask your doctor when it's okay to resume sexual activity. * Tell your doctor about any erectile dysfunction (ED) medication you are taking. Some ED medications are not safe if you take certain heart medications. * Try to manage stress. Follow Up: It is important for you to keep your follow up appointments with your medical provider. Prescriptions: New losartan 50 mg Tablet 100 mg PO QAM 30 Days Qty: 60 RF: 2 atorvastatin 40 mg Tablet 40 mg PO DAILY 30 Days Qty: 30 RF: 2 verapamil 180 mg Tablet Extended Release 180 mg PO QPM 30 Days Qty: 30 RF: 2 clopidogrel 75 mg Tablet 75 mg PO QAM 30 Days Qty: 30 RF: 2 nitroglycerin [Nitrostat] 0.3 mg tablet, sublingual 0.3 mg sublingual UD Qty: 15 RF: 0 Continued levothyroxine 137 mcg Tablet 137 mcg PO 4XWK RF: 0 fluticasone propion-salmeterol [Advair Diskus] 250-50 mcg/dose Blister With Device 1 inh INHALATION BID RF: 0 ranitidine HCl 300 mg Tablet 300 mg PO QPM RF: 0 aspirin [Aspir-Low] 81 mg Tablet,Delayed Release (Dr/Ec) 81 mg PO DAILY RF: 0 tamsulosin [Flomax] 0.4 mg capsule 0.4 mg PO HS RF: 0 meclizine 25 mg Tablet 25 mg PO Q6 PRN (Reason: DIZZYNESS) RF: 0 triamcinolone acetonide 55 mcg Aerosol,[place] 1 spray INTRANASAL DAILY RF: 0 levothyroxine [Synthroid] 150 mcg tablet 150 mcg PO 3XWK RF: 0 sertraline 50 mg Tablet 50 mg PO DAILY RF: 0 loratadine [Claritin] 10 mg Tablet 10 mg PO DAILY RF: 0 potassium chloride [Klor-Con M10] 10 mEq tablet,ER particles/crystals 10 meq PO DAILY RF: 0 dextran 70-hypromellose (PF) 0.1-0.3 % [place]rette 1 drp OPL QID PRN (Reason: Dry Eyes) RF: 0 guaifenesin [Mucinex] 600 mg Tablet Extended Release 12hr 600 mg PO Q12H PRN (Reason: Congestion) RF: 0 Lactinex 1 million cell tablet,chewable 1 tab PO BID Qty: 30 RF: 0 Discontinued atorvastatin 20 mg Tablet 20 mg PO DAILY RF: 0 naproxen sodium [Aleve] 220 mg Tablet 220 mg PO BID PRN (Reason: Pain) RF: 0 verapamil 240 mg Tablet Extended Release 120 mg PO QPM RF: 0 levofloxacin 750 mg Tablet 750 mg PO DAILY RF: 0 losartan-hydrochlorothiazide 100-25 mg tablet 1 tab PO DAILY RF: 0 Stand-Alone Forms: Call Back Authorization, [facility] Discharge Orders: Discharge Order (Routine); Ordered 12/07/18 Ordered By: Maxi Osborn Admission Data Admit Date/Time: 12/05/18 14:46 Attending Provider: Maxi Osborn Admit Provider: Cornelius Chen Primary Care Provider: Donn Garcia Other Providers: Ant Bowie ; Corneluis Chen ; Ravinder Corrigan Service: Telemetry Other Interventions: Discharge Summary Assessment (RN) Last Done: 12/07/18 15:25 DC Date/Time DO NOT enter until pt leaves facility: 12/07/18 15:58
== END 2018-12-07 15:58 | disposition home or self-care (01) | DRG 247 ==
LOC: 2N 13:57 → ED 13:57 → 2N 17:05 → SUATTDRO 12-05 14:46 → 2S 12-05 16:35

== ENCOUNTER 2019-07-12 11:25 | Inpatient (IN) ==
--- NOTE | 2019-07-12 11:56 | XRay Report ---
XR chest 1V portable CLINICAL HISTORY: 78 years-old Male presenting with Chest Pain. TECHNIQUE: Portable upright AP view of the chest was obtained. COMPARISON: 12/03/2018. FINDINGS: Atherosclerosis of the aortic arch. Cardiac silhouette borderline enlarged. Minimal basilar opacities . No pleural effusion or pneumothorax. Degenerative changes of the thoracic spine. Upper abdomen norm al. IMPRESSION: 1. Minimal basilar opacities likely atelectasis or scarring. No convincing evidence of acute cardiop ulmonary disease. ACT 112: Negative or not required by law. Electronically signed by: Nate Arreola M.D. 07/12/2019 11:55 AM
[2019-07-12 11:59] LABS: Basophils # (auto) 0.03 K/uL (0-0.2); Basophils % (auto) 0.5 %; Eosinophils % (auto) 1.7 %; Hematocrit (blood only) 43.7 % (42-52); Hemoglobin 14.9 g/dL (14.0-18.0); Immature Granulocytes # (auto) 0.04 K/uL (0.00-0.02); Immature Granulocytes % (auto) 0.7 %; Lymphocytes # (auto) 1.01 K/uL (1.2-3.4); Lymphocytes % (auto) 17.4 %; Mean Corpuscular Hemoglobin 30.7 pg (25-34); Mean Corpuscular Hgb Conc 34.1 g/dL (32-36); Mean Corpuscular Volume 89.9 fL (80-100); Mean Platelet Volume 10.7 fL (7.4-10.4); Monocytes # (auto) 0.81 K/uL (0.11-0.59); Neutrophils # (auto) 3.81 K/uL (1.4-6.5); Neutrophils % (auto) 65.7 %; Platelet Count 162 K/uL (130-400); RDW Standard Deviation 46.3 fL (36.4-46.3); Red Blood Count 4.86 M/uL (4.7-6.1)
[2019-07-12 12:10] LABS: Partial Thromboplastin Time 26.8 Seconds (21.0-31.0); Prothrombin Time 10.6 Seconds (9.0-12.0)
[2019-07-12 12:23] LABS: Albumin Level 3.6 gm/dl (3.4-5.0); BUN Creatinine Ratio 19.2 (10-20); Calcium 8.4 mg/dl (8.5-10.1); Creatinine Clr Calc Pharmacy 66.3 ml/min; Est GFR (African American) 83.4; Est GFR (Non-African American) 71.9; Potassium 3.8 mmol/L (3.5-5.1)
[2019-07-12 12:27] LABS: Albumin Globulin Ratio 1.2 (0.9-2); Bilirubin,Total 0.8 mg/dl (0.2-1); Total Protein 6.6 gm/dl (6.4-8.2); Troponin I 0.028 ng/ml (0-0.045)
[2019-07-12] MEDS ORDERED: ENOXAPARIN 1 MG/KG SQ ONE (13:24)
--- NOTE | 2019-07-12 13:24 | Emergency Department Note ---
Entered by Nohelia Bradford acting as a scribe for Florin Dowling DO History of Present Illness General Chief complaint: Cardiac Assessment Stated complaint: HEART TROUBLES, CHEST PAIN Time Seen by Provider: 07/12/19 11:39 Source: patient History of Present Illness Onset (ago): day(s) 2 Location: chest Pain Consistency: + intermittent Maximum Pain Intensity: 4 Quality: + other (discomfort) Exacerbated By: + movement (exertion) Associated symptoms: + denies other symptoms (swelling in legs) and + other (fatigue, shortness of breath) The patient is a 78 year old male that is presenting to the Emergency Room with complaints of intermittent chest discomfort that started 2 days ago. The patient reports that he has been feeling fatigued for the past month. He states that he has been short of breath for a month as well. He notes that his symptoms worsen with any exertion, such as walking down his driveway. He denies any swelling in his legs. He notes that his left arm goes numb on occasion, but he states that this has been occurring for some time. The patient reports that he had three stents placed on 12/06/18. He states that he has felt generally well since that time. He notes that his current symptoms resemble his symptoms prior to his stent placement. He states that he had a normal EKG and stress test before the blocked artery was found via cardiac catheterization in the back of the heart. He reports that no other areas of cardiac disease were noted at that time. He notes that he is still taking Plavix. Home Medications Home Medications Medication Instructions Recorded Confirmed Type aspirin [Aspir-Low] 81 mg PO DAILY 10/31/18 07/12/19 History dextran 70-hypromellose (PF) 1 drp OPL QID PRN 10/31/18 07/12/19 History fluticasone propion-salmeterol 1 inh INHALATION BID 10/31/18 07/12/19 History [Advair Diskus] guaifenesin [Mucinex] 600 mg PO Q12H PRN 10/31/18 07/12/19 History levothyroxine 137 mcg PO 4XWK 10/31/18 07/12/19 History levothyroxine [Synthroid] 150 mcg PO 3XWK 10/31/18 07/12/19 History loratadine [Claritin] 10 mg PO DAILY 10/31/18 07/12/19 History meclizine 25 mg PO Q6 PRN 10/31/18 07/12/19 History potassium chloride [Klor-Con M10] 10 meq PO DAILY 10/31/18 07/12/19 History ranitidine HCl 300 mg PO QPM 10/31/18 07/12/19 History sertraline 50 mg PO DAILY 10/31/18 07/12/19 History tamsulosin [Flomax] 0.4 mg PO HS 10/31/18 07/12/19 History triamcinolone acetonide 1 spray INTRANASAL DAILY 10/31/18 07/12/19 History Lactinex 1 tab PO BID #30 tab 11/02/18 07/12/19 Rx nitroglycerin [Nitrostat] 0.3 mg SUBLINGUAL UD #15 tab 12/07/18 07/12/19 Rx acetaminophen 500 mg PO UD PRN 07/12/19 07/12/19 History albuterol sulfate 2 puff INHALATION Q6H PRN 07/12/19 07/12/19 History atorvastatin 40 mg PO DAILY 07/12/19 07/12/19 History clopidogrel 75 mg PO DAILY 07/12/19 07/12/19 History ipratropium-albuterol 3 ml INHALATION Q4H 07/12/19 07/12/19 History Allergies Allergy/AdvReac Type Severity Reaction Status Date / Time codeine AdvReac Mild N/V Verified 07/12/19 12:30 Past Med/Surg History Medical History Asthma (Chronic) BPH (benign prostatic hyperplasia) (Chronic) COPD (chronic obstructive pulmonary disease) (Chronic) 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) History of Graves' disease (Chronic) History of malignant melanoma of skin (Chronic) History of pulmonary embolism (Chronic) Hypertension (Chronic) Hypothyroidism (Chronic) Prostate cancer (Resolved) Status post seed implant Skin cancer (Resolved) Surgical History H/O rotator cuff surgery (Resolved) History of appendectomy (Resolved) History of basal cell carcinoma (BCC) excision (Chronic) History of cardiac cath (Chronic) Negative per patient, no history of stenting or bypass History of colonoscopy with polypectomy (Chronic) Last 11/03/2016 recommend repeat in 3 years History of cystoscopy (Chronic) History of eye surgery (Chronic) History of hernia repair (Chronic) History of thyroidectomy, total (Chronic) History of vasectomy (Chronic) Status post operation on nasal sinus (Resolved) "09/2002" Family History Father Cancer Prostate and bladder Mother Stroke Breast cancer Other Family history non-contributory Social History Preferred Language: Gabonese Communication Ability: Effective Tubular Splitting Machine Tender Required: No Beliefs That Will Affect Care: Sabianist Sabianist Beliefs: Voodoo marital status: Current Living Situation: Spouse Feels Safe at Home: Yes Smoking Status: Former smoker Age Quit Using Tobacco: 27 ; Second Hand Exposure: No ; Hx Alcohol Use: Yes Alcohol type: beer, wine and hard liquor Alcohol Intake Frequency: Rarely Hx Substance Use: No Review of Systems See HPI for pertinent positives & negatives. and A total of 10 systems reviewed and were otherwise negative Physical Exam Vital Signs Vital Signs - 24 hr 07/12/19 11:28 07/12/19 11:37 07/12/19 11:41 Temperature 36.5 C Temperature Source Oral Pulse Rate 64 58 L 56 L Pulse Rhythm Regular Pulse Strength Normal Respiratory Rate 18 18 21 Respiratory Effort / Characteristics Non-Labored Spontaneous Respiratory Depth Normal Respiratory Pattern Regular Blood Pressure 136/76 169/76 H Blood Pressure Mean 96 108 Blood Pressure Position Sitting Pulse Oximetry 96 Oxygen Delivery Method Room Air Sepsis Recent Fever Within 48 Hours No Sepsis New/Unexplained Change in Mental Status No Sepsis Action Taken by Nursing No Action Required 07/12/19 11:49 07/12/19 12:00 07/12/19 12:30 Temperature Temperature Source Pulse Rate 54 L 55 L Pulse Rhythm Pulse Strength Respiratory Rate 23 20 Respiratory Effort / Characteristics Respiratory Depth Respiratory Pattern Blood Pressure Blood Pressure Mean Blood Pressure Position Pulse Oximetry 96 Oxygen Delivery Method Room Air Sepsis Recent Fever Within 48 Hours Sepsis New/Unexplained Change in Mental Status Sepsis Action Taken by Nursing 07/12/19 13:00 Temperature Temperature Source Pulse Rate 56 L Pulse Rhythm Pulse Strength Respiratory Rate 19 Respiratory Effort / Characteristics Respiratory Depth Respiratory Pattern Blood Pressure Blood Pressure Mean Blood Pressure Position Pulse Oximetry Oxygen Delivery Method Sepsis Recent Fever Within 48 Hours Sepsis New/Unexplained Change in Mental Status Sepsis Action Taken by Nursing CONSTITUTIONAL/VITAL SIGNS: Reviewed / noted above. GENERAL: Non-toxic in appearance. INTEGUMENTARY: Warm, dry, and [place]. HEAD: Normocephalic. EYES: without scleral icterus or trauma. ENT/OROPHARYNX: clear and moist. LYMPHADENOPATHY/NECK: Is supple without lymphadenopathy or meningismus. RESPIRATORY: Lungs clear and equal. CARDIOVASCULAR: Regular rate and rhythm. GI/ABDOMEN: Soft and nontender. No organomegaly or pulsatile mass. No rebound or guarding. Normal bowel sounds. EXTREMITIES: Warm and well perfused. BACK: No CVA tenderness. NEUROLOGICAL: Intact without focal deficits. PSYCHIATRIC: normal affect. MUSCULOSKELETAL: Normally developed with good muscle tone. Course Course 1202:The patient was evaluated in room C09. A complete history and physical examination was performed. Medical Decision Making Differential Diagnosis Differential considered includes acute myocardial infarction, acute coronary syndrome, myocarditis, pericarditis, pericardial effusions /tamponad, esophageal perforation, thoracic aortic dissection, pulmonary embolism, pneumonia, pneumothorax, pancreatitis, shingles, acute cholecystitis, perforated abdominal viscus. Medical Records Attestation: I reviewed the patient's medical records. Home Medications Current Medication List: was personally reviewed by me Laboratory Data Attestation: I reviewed the patient's lab results. Result diagrams: 07/12/19 11:45 07/12/19 11:45 Lab Results 07/12/19 07/12/19 07/12/19 Range/Units 11:45 11:45 11:45 WBC 5.80 (4.8-10.8) K/uL RBC 4.86 (4.7-6.1) M/uL Hgb 14.9 (14.0-18.0) g/dL Hct 43.7 (42-52) % MCV 89.9 (80-100) fL MCH 30.7 (25-34) pg MCHC 34.1 (32-36) g/dL RDW Std Deviation 46.3 (36.4-46.3) fL RDW Coeff of Valentino 14.0 (11.5-14.5) % Plt Count 162 (130-400) K/uL MPV 10.7 H (7.4-10.4) fL Immature Gran % (Auto) 0.7 % Neut % (Auto) 65.7 % Lymph % (Auto) 17.4 % Moody % (Auto) 14.0 % Eos % (Auto) 1.7 % Baso % (Auto) 0.5 % Immature Gran # (Auto) 0.04 H (0.00-0.02) K/uL Neut # (Auto) 3.81 (1.4-6.5) K/uL Lymph # (Auto) 1.01 L (1.2-3.4) K/uL Moody # (Auto) 0.81 H (0.11-0.59) K/uL Eos # (Auto) 0.10 (0-0.5) K/uL Baso # (Auto) 0.03 (0-0.2) K/uL PT 10.6 (9.0-12.0) Seconds INR 1.0 (0.9-1.1) APTT 26.8 (21.0-31.0) Seconds PTT Ratio 1.0 Sodium 141 (136-145) mmol/L Potassium 3.8 (3.5-5.1) mmol/L Chloride 111 H (98-107) mmol/L Carbon Dioxide 28 (21-32) mmol/L Anion Gap 2.0 L (3-11) BUN 19 H (7-18) mg/dl Creatinine 1.01 (0.6-1.4) mg/dl Est Cr Clr Drug Dosing 66.3 ml/min Est GFR ( Amer) 83.4 Est GFR (Non-Af Amer) 71.9 BUN/Creatinine Ratio 19.2 (10-20) Glucose 93 (70-99) mg/dl Calcium 8.4 L (8.5-10.1) mg/dl Total Bilirubin 0.8 (0.2-1) mg/dl AST 12 L (15-37) U/L ALT 18 (12-78) U/L Alkaline Phosphatase 90 (45-117) U/L Total Creatine Kinase 63 (39-308) U/L Troponin I 0.028 (0-0.045) ng/ml Total Protein 6.6 (6.4-8.2) gm/dl Albumin 3.6 (3.4-5.0) gm/dl Globulin 3.0 (2.5-4.0) gm/dl Albumin/Globulin Ratio 1.2 (0.9-2) Lipase 358 (73-393) U/L Imaging Data Radiologist's Impression: Radiology results as stated below per my review and the radiologist's interpretation: XR chest 1V portable CLINICAL HISTORY: 78 years-old Male presenting with Chest Pain. TECHNIQUE: Portable upright AP view of the chest was obtained. COMPARISON: 12/03/2018. FINDINGS: Atherosclerosis of the aortic arch. Cardiac silhouette borderline enlarged. Minimal basilar opacities. No pleural effusion or pneumothorax. Degenerative changes of the thoracic spine. Upper abdomen normal. IMPRESSION: 1. Minimal basilar opacities likely atelectasis or scarring. No convincing evidence of acute cardiopulmonary disease. ACT 112: Negative or not required by law. Electronically signed by: Nate Arreola M.D. 07/12/2019 11:55 AM ECG Data Attestation: I personally reviewed and interpreted this ECG as follows: Indication: + chest pain Rate (beats per minute): 56 Rhythm: + sinus bradycardia ECG Intervals/blocks: + Normal QT-c ECG ST segments: no ST elevation ECG Findings: no PACs and no PVCs Blood Pressure Blood Pressure Findings: Elevated blood pressure Blood Pressure Disposition: Referred to patients primary care provider MDM Narrative This is a 78-year-old male who presents to the ED with a chief complaint of exertional dyspnea and chest tightness. He states that he has had the symptoms for him since June 17. It significantly worsened over the past several days. The patient states that his symptoms are similar to the symptoms he had prior to having stents placed in November. He has history of a LAD stent and circumflex stent. The patient also reports feeling tired with exertion. His twelve-lead EKG shows a sinus bradycardia at a rate of 56. His CBC and chemistry panel was unremarkable. Troponin was negative and lipase was negative. Because his symptoms are reminiscent of the angina he was experiencing prior to stenting, he will be seen by the hospitalist for unstable angina. Impression & Plan Angina pectoris, unstable Discharge Plan Visit Data Chief Complaint: Cardiac Assessment Stated Complaint: HEART TROUBLES, CHEST PAIN ED Provider: Florin Dowling Discharge Problem: Angina pectoris, unstable Patient Disposition: Being Evaluated by Hospitalist Forms Stand Alone Forms: My [facility] [employer] Prescriptions Prescriptions: No Action levothyroxine 137 mcg Tablet 137 mcg PO 4XWK RF: 0 fluticasone propion-salmeterol [Advair Diskus] 250-50 mcg/dose Blister With Device 1 inh INHALATION BID RF: 0 ranitidine HCl 300 mg Tablet 300 mg PO QPM RF: 0 aspirin [Aspir-Low] 81 mg Tablet,Delayed Release (Dr/Ec) 81 mg PO DAILY RF: 0 tamsulosin [Flomax] 0.4 mg capsule 0.4 mg PO HS RF: 0 meclizine 25 mg Tablet 25 mg PO Q6 PRN (Reason: DIZZYNESS) RF: 0 triamcinolone acetonide 55 mcg Aerosol,[place] 1 spray INTRANASAL DAILY RF: 0 levothyroxine [Synthroid] 150 mcg tablet 150 mcg PO 3XWK RF: 0 sertraline 50 mg Tablet 50 mg PO DAILY RF: 0 loratadine [Claritin] 10 mg Tablet 10 mg PO DAILY RF: 0 potassium chloride [Klor-Con M10] 10 mEq tablet,ER particles/crystals 10 meq PO DAILY RF: 0 dextran 70-hypromellose (PF) 0.1-0.3 % [place] 1 drp OPL QID PRN (Reason: Dry Eyes) RF: 0 guaifenesin [Mucinex] 600 mg Tablet Extended Release 12hr 600 mg PO Q12H PRN (Reason: Congestion) RF: 0 Lactinex 1 million cell tablet,chewable 1 tab PO BID Qty: 30 RF: 0 atorvastatin 40 mg tablet 40 mg PO DAILY RF: 0 ipratropium-albuterol 0.5 mg-3 mg(2.5 mg base)/3 mL solution for nebulization 3 ml INHALATION Q4H RF: 0 clopidogrel 75 mg tablet 75 mg PO DAILY RF: 0 albuterol sulfate 90 mcg/actuation Hfa Aerosol Inhaler 2 puff INHALATION Q6H PRN (Reason: Shortness Of Breath) RF: 0 acetaminophen 500 mg Capsule 500 mg PO UD PRN (Reason: Pain) RF: 0 nitroglycerin [Nitrostat] 0.3 mg tablet, sublingual 0.3 mg sublingual UD Qty: 15 RF: 0 Referrals Referrals: Donn Clarke MD [Primary Care Provider] - The dian's documentation has been prepared under my direction and personally reviewed by me in its entirety. I confirm that the note above accurately reflects all work, treatment, procedures, and medical decision making performed by me.
[2019-07-12] MEDS ORDERED: ENOXAPARIN 100 MG/1ML SYR SQ ONE (13:45)
[2019-07-12] MEDS: NITROGLYCERIN 2% OINTMENT 30GM TUBE EXT SCH ×2 (15:10→20:21)
--- NOTE | 2019-07-12 15:12 | History & Physical Report ---
Date of Service July 12, 2019 Assessment & Plan (1) Chest pain: (2) Coronary atherosclerosis of [place] coronary artery: -Admit to telemetry -Patient presenting from home with reports of increasing exertional chest pain shortness of breath; very similar to symptoms in the past which prompted cardiac cath with stenting (11/2018 -MARY to proximal left circumflex and MARY x2 to mid LAD) -Still having some mild residual chest pain; EKG without acute ST changes, initial troponin negative -Received SQ Lovenox 90 mg in ED -Noted to have increasing BPs in ED; hypertensive urgency may be contributing to symptoms -Start topical nitroglycerin, add amlodipine 5 mg to antihypertensive regimen -Continue aspirin, Plavix, statin, ARB (noted patient is not on beta-araceli) -Resting echo -Serial cardiac enzymes -Cardiology consult, case discussed with Dr. Lopez (3) Hypertension: -Continue verapamil, losartan, HCTZ -Adding amlodipine as above (4) Asthma: -No signs of acute exacerbation -Continue home inhalers (5) Hypothyroidism: -TSH . -Update TSH -Continue home dose levothyroxine (6) DVT prophylaxis: -SCDs, ambulate History of Present Illness Chief Complaint: Chest pain Primary Care Provider: Donn Clarke MD 78-year-old male who presents the ED with chest pain. Patient has history of CAD, s/p MARY to proximal left circumflex and MARY x2 to mid LAD in 11/2018. Patient reports he has been having episodes of increasing exertional chest pain shortness of breath for the past few weeks. Symptoms have been more severe over the past 2 days. Patient reports that typically he is very active and walks 1 mile every 1 to 2 days. He has been unable to do that recently secondary to his symptoms. Last evening, while taking out the garbage, he developed an episode of severe chest pressure with associated shortness of breath. Symptoms resolved after resting and taking 2 baby aspirin. This morning, patient had some mild residual chest pressure and therefore presented to the ED for further evaluation. Patient rates his pain at its worst as a #8/10, currently #2/10. He did not take any nitroglycerin at home. Patient reports some mild radiation of the pain into his neck. He has had associated lightheadedness however no syncopal event. No associated diaphoresis or nausea. Patient denies any recent travel or sick contacts. No fevers or chills. Denies abdominal pain, vomiting, diarrhea. No urinary symptoms. In the ED, initial troponin is negative and EKG does not show any acute ST changes. Initial BP controlled at 136/76 however has been steadily increasing, highest BP being 191/107. Patient was given Lovenox 90 mg SQ. Allergies Allergy/AdvReac Type Severity Reaction Status Date / Time codeine AdvReac Mild N/V Verified 07/12/19 12:30 Home Medications Home Medications Medication Instructions Recorded Confirmed Type aspirin [Aspir-Low] 81 mg PO DAILY 10/31/18 07/12/19 History dextran 70-hypromellose (PF) 1 drp OPL QID PRN 10/31/18 07/12/19 History guaifenesin [Mucinex] 600 mg PO Q12H PRN 10/31/18 07/12/19 History levothyroxine 137 mcg PO 4XWK 10/31/18 07/12/19 History levothyroxine [Synthroid] 150 mcg PO 3XWK 10/31/18 07/12/19 History loratadine [Claritin] 10 mg PO DAILY 10/31/18 07/12/19 History meclizine 25 mg PO Q6 PRN 10/31/18 07/12/19 History potassium chloride [Klor-Con M10] 10 meq PO DAILY 10/31/18 07/12/19 History ranitidine HCl 300 mg PO QPM 10/31/18 07/12/19 History sertraline 50 mg PO DAILY 10/31/18 07/12/19 History tamsulosin [Flomax] 0.4 mg PO HS 10/31/18 07/12/19 History triamcinolone acetonide 1 spray INTRANASAL DAILY 10/31/18 07/12/19 History Lactinex 1 tab PO BID #30 tab 11/02/18 07/12/19 Rx acetaminophen 500 mg PO UD PRN 07/12/19 07/12/19 History albuterol sulfate 2 puff INHALATION Q6H PRN 07/12/19 07/12/19 History atorvastatin 40 mg PO DAILY 07/12/19 07/12/19 History clopidogrel 75 mg PO DAILY 07/12/19 07/12/19 History fluticasone propion-salmeterol 1 inh INHALATION BID 07/12/19 07/12/19 History [Wixela Inhub] hydrochlorothiazide 25 mg PO 4XWK 07/12/19 07/12/19 History ipratropium-albuterol 3 ml INHALATION Q4H PRN 07/12/19 07/12/19 History losartan 100 mg PO DAILY 07/12/19 07/12/19 History verapamil 180 mg PO DAILY 07/12/19 07/12/19 History Past Med/Surg History Medical History Asthma (Chronic) BPH (benign prostatic hyperplasia) (Chronic) Clostridium difficile carrier COPD (chronic obstructive pulmonary disease) (Chronic) Coronary atherosclerosis of [place] coronary artery (Chronic) 11/2018 - MARY to prox L cx, MARY x 2 to mid LAD History of Graves' disease (Chronic) History of malignant melanoma of skin (Chronic) History of pulmonary embolism (Chronic) 2010 - completed Coumadin therapy Hypertension (Chronic) Hypothyroidism (Chronic) Prostate cancer (Resolved) Status post seed implant Skin cancer (Resolved) Surgical History H/O rotator cuff surgery (Resolved) History of appendectomy (Resolved) History of basal cell carcinoma (BCC) excision (Chronic) History of colonoscopy with polypectomy (Chronic) Last 11/03/2016 recommend repeat in 3 years History of cystoscopy (Chronic) History of eye surgery (Chronic) History of hernia repair (Chronic) History of thyroidectomy, total (Chronic) History of vasectomy (Chronic) Status post operation on nasal sinus (Resolved) "09/2002" Family History Father Cancer Prostate and bladder Mother Stroke Breast cancer Social History (Updated 07/12/19 @ 15:22 by COURTNEY Cain) Preferred Language: Spanish Communication Ability: Effective Livestock Slaughterer Required: No Beliefs That Will Affect Care: None marital status: Current Living Situation: Spouse Other Information That Helps Us Care for You: No Feels Safe at Home: Yes Safety Concerns: Feels Safe At This Time Smoking Status: Never smoker Age Quit Using Tobacco: 27 ; Second Hand Exposure: No ; Hx Alcohol Use: Yes Alcohol type: beer, wine and hard liquor Alcohol Intake Frequency: Daily Alcohol Intake Frequency Comment: 1-2 drinks per day Hx Substance Use: No Review of Systems Review of Systems: ROS per HPI, all other systems reviewed and negative Physical Exam Constitutional: WD/WN, vitals as above Eyes: PERRL, conjunctivae normal, anicteric sclerae ENMT: external ear and nose normal, oropharynx normal Respiratory: normal respiratory effort, lungs clear to auscultation Cardiovascular: Rate/Rhythm: regular rate and regular rhythm Vessels: normal peripheral pulses Extremities: no edema Chest (Breasts): Additional Comments: Chest nontender to palpation Gastrointestinal (Abdomen): normal bowel sounds, soft, nontender, no hepatosplenomegaly Musculoskeletal: no cyanosis or clubbing, extremities motor strength 5/5 Skin: no rashes, warm and dry Neurologic: PERRL, EOMI, accommodation nl, no face palsy, no dysarthria Psychiatric: A+Ox3, euthymic affect Results & Data Vital Signs (Past 12 Hours) Vital Signs Temp Pulse Resp BP Pulse Ox 07/12/19 14:01 60 20 98 07/12/19 14:00 66 18 191/107 H 97 07/12/19 13:51 63 22 184/89 H 07/12/19 13:30 60 16 07/12/19 13:00 56 L 19 07/12/19 12:30 55 L 20 07/12/19 12:00 54 L 23 07/12/19 11:49 96 07/12/19 11:41 56 L 21 07/12/19 11:37 58 L 18 169/76 H 07/12/19 11:28 36.5 C 64 18 136/76 96 Laboratory Results Short CBC 07/12/19 Range/Units 11:45 WBC 5.80 (4.8-10.8) K/uL Hgb 14.9 (14.0-18.0) g/dL Hct 43.7 (42-52) % Plt Count 162 (130-400) K/uL BMP 07/12/19 11:45 Sodium 141 Potassium 3.8 Chloride 111 H Carbon Dioxide 28 BUN 19 H Creatinine 1.01 Glucose 93 Calcium 8.4 L Cardiac Enzymes 07/12/19 Range/Units 11:45 Total Creatine Kinase 63 (39-308) U/L Troponin I 0.028 (0-0.045) ng/ml Liver Function 07/12/19 Range/Units 11:45 Total Bilirubin 0.8 (0.2-1) mg/dl AST 12 L (15-37) U/L ALT 18 (12-78) U/L Alkaline Phosphatase 90 (45-117) U/L Albumin 3.6 (3.4-5.0) gm/dl Diagnostic Findings CXR IMPRESSION: 1. Minimal basilar opacities likely atelectasis or scarring. No convincing evidence of acute cardiopulmonary disease. Code Status & VTE Plan VTE Prophylaxis Plan VTE Prophylaxis will be ordered: Yes Supervising Physician Co-Signing Physician Notes Patient is a 78-year-old man with history of CAD S/P PCI, hypertension, hypothyroidism and other problems presents with history of retrosternal chest tightness, worsening dyspnea on exertion since past few weeks. Please review HPI for complete details of presentation. Initial cardiac enzymes are negative. EKG showed sinus bradycardia, nonspecific ST-T wave abnormality. On exam patient is moderately built and nourished, no apparent distress, normocephalic atraumatic, lungs--decreased breath sounds, clear to auscultation, S1-S2, no murmur, abdomen soft nontender, grossly no focal neurological deficits, no pedal edema. Patient is admitted for management of chest pain, uncontrolled hypertension. R/O ACS. Agree with resting echo, trending cardiac enzymes. Continue aspirin, Plavix, statin, ARB. Likely secondary to uncontrolled hypertension. Adjust antihypertensives to better control the blood pressure. Cardiology consulted. Further management based on echo results, troponin levels. I personally reviewed the record. Patient is interviewed and examined at bedside. Patient's care is coordinated with Marissa Wallace FEED ELEVATOR WORKER. Please refer to the documentation above for details of patient's presentation and for discussion of other issues. (1) Hypertension Hypertension type: essential hypertension Qualified Code(s): I10 - Essential (primary) hypertension
[2019-07-12] MEDS ORDERED: NITROGLYCERIN SL 0.4 MG/TAB TAB SL PRN (16:10)
[2019-07-12] MEDS ORDERED: ACETAMINOPHEN 325 MG TAB PO PRN (16:10)
[2019-07-12] MEDS ORDERED: ALBUT/IPRATROP 3MG/0.5MG NEB 3 ML VIAL INH PRN (16:10)
[2019-07-12] MEDS ORDERED: AMLODIPINE BESYLATE 5 MG TAB PO ONE (16:30)
[2019-07-12] MEDS: LACTOBACILLUS ACIDOPHILUS (FLORANEX) TAB PO SCH (16:43)
--- NOTE | 2019-07-12 17:43 | Cardiology Consultation ---
Date of Consultation July 12, 2019 Assessment & Plan (1) Chest pain: At this point his ischemic work-up is unremarkable with no significant EKG changes and an unremarkable troponin. His chest pain is resolved, so at this point I believe the most prudent course of action would be for strict blood pressure control along with obtaining a 2D echocardiogram to evaluate for any wall motion abnormalities. Should his echocardiogram come back unremarkable and his cardiac enzymes be trended unremarkably then I believe the most prudent course of action would be to treat him for hypertensive urgency and then ultimately perform an outpatient nuclear stress test after discharge. Continue to follow on telemetry (2) Coronary atherosclerosis of [place] coronary artery: Does not appear to be having acute coronary syndrome at this time. As above we will obtain an echocardiogram for wall motion abnormality and trend cardiac enzymes. (3) Hypertensive urgency: Significantly elevated on admission. Was actually rather hypertensive at last outpatient follow-up as well after his HCTZ was discontinued. He has been given 5 mg of amlodipine I have recommended nitro patch as well. He is currently not on a beta-araceli instead on verapamil which will be discontinued I will likely add beta-blockade based on his heart rate We will also give terazosyn 1 mg p.o. nightly this evening Could also utilize hydralazine if necessary for further blood pressure control or increase the amlodipine dose. History of Present Illness Reason for Consultation: chest pain Requesting Physician: Dr. Urban Attending Physician: Charlie Urban MD History of Present Illness It was my pleasure to see Mr. Crockett in consultation today July 12, 2019. He is a very pleasant 78-year-old gentleman who is been following with Dr. Bowie of our cardiology practice. He presented to [facility] on 07/12/2019 with complaints of chest pain. He states that a few days ago he started noticing became dyspneic when walking. He is normally very active walking 1 to 2 miles a day and this is very unusual for him. He then noticed while walking he developed chest pain which he describes a substernal pressure sensation similar to the episode of discomfort he had prior to his PCI's in November. This slowly progressed over the next few days until the evening prior to presentation he was taking out the garbage and after walking back up to his house he became significantly dyspneic with significant chest discomfort. He did take 2 baby aspirin he ranked the pain is 8 out of 10 and he came into the e mergency department. Upon arrival his initial troponin was unremarkable as was his EKG however he was significantly hypertensive. He is now symptom-free at rest. Allergies Allergy/AdvReac Type Severity Reaction Status Date / Time codeine AdvReac Mild N/V Verified 07/12/19 12:30 Home Medications Home Medications Medication Instructions Recorded Confirmed Type aspirin [Aspir-Low] 81 mg PO DAILY 10/31/18 07/12/19 History dextran 70-hypromellose (PF) 1 drp OPL QID PRN 10/31/18 07/12/19 History guaifenesin [Mucinex] 600 mg PO Q12H PRN 10/31/18 07/12/19 History levothyroxine 137 mcg PO 4XWK 10/31/18 07/12/19 History levothyroxine [Synthroid] 150 mcg PO 3XWK 10/31/18 07/12/19 History loratadine [Claritin] 10 mg PO DAILY 10/31/18 07/12/19 History meclizine 25 mg PO Q6 PRN 10/31/18 07/12/19 History potassium chloride [Klor-Con M10] 10 meq PO DAILY 10/31/18 07/12/19 History ranitidine HCl 300 mg PO QPM 10/31/18 07/12/19 History sertraline 50 mg PO DAILY 10/31/18 07/12/19 History tamsulosin [Flomax] 0.4 mg PO HS 10/31/18 07/12/19 History triamcinolone acetonide 1 spray INTRANASAL DAILY 10/31/18 07/12/19 History Lactinex 1 tab PO BID #30 tab 11/02/18 07/12/19 Rx acetaminophen 500 mg PO UD PRN 07/12/19 07/12/19 History albuterol sulfate 2 puff INHALATION Q6H PRN 07/12/19 07/12/19 History atorvastatin 40 mg PO DAILY 07/12/19 07/12/19 History clopidogrel 75 mg PO DAILY 07/12/19 07/12/19 History fluticasone propion-salmeterol 1 inh INHALATION BID 07/12/19 07/12/19 History [Wixela Inhub] hydrochlorothiazide 25 mg PO 4XWK 07/12/19 07/12/19 History ipratropium-albuterol 3 ml INHALATION Q4H PRN 07/12/19 07/12/19 History losartan 100 mg PO DAILY 07/12/19 07/12/19 History verapamil 180 mg PO DAILY 07/12/19 07/12/19 History Patient History Medical History Asthma (Chronic) BPH (benign prostatic hyperplasia) (Chronic) Clostridium difficile carrier COPD (chronic obstructive pulmonary disease) (Chronic) Coronary atherosclerosis of [place] coronary artery (Chronic) 11/2018 - MARY to prox L cx, MARY x 2 to mid LAD History of Graves' disease (Chronic) History of malignant melanoma of skin (Chronic) History of pulmonary embolism (Chronic) 2010 - completed Coumadin therapy Hypertension (Chronic) Hypothyroidism (Chronic) Prostate cancer (Resolved) Status post seed implant Skin cancer (Resolved) Surgical History H/O rotator cuff surgery (Resolved) History of appendectomy (Resolved) History of basal cell carcinoma (BCC) excision (Chronic) History of colonoscopy with polypectomy (Chronic) Last 11/03/2016 recommend repeat in 3 years History of cystoscopy (Chronic) History of eye surgery (Chronic) History of hernia repair (Chronic) History of thyroidectomy, total (Chronic) History of vasectomy (Chronic) Status post operation on nasal sinus (Resolved) "09/2002" Family History Father Cancer Prostate and bladder Mother Stroke Breast cancer Social History Preferred Language: Nepali Communication Ability: Effective Maritime Officer Required: No Beliefs That Will Affect Care: None marital status: Current Living Situation: Spouse Other Information That Helps Us Care for You: No Feels Safe at Home: Yes Safety Concerns: Feels Safe At This Time Smoking Status: Never smoker Age Quit Using Tobacco: 27 ; Second Hand Exposure: No ; Hx Alcohol Use: Yes Alcohol type: beer, wine and hard liquor Alcohol Intake Frequency: Daily Alcohol Intake Frequency Comment: 1-2 drinks per day Hx Substance Use: No Review of Systems Review of Systems: All systems reviewed & are unremarkable except as noted in HPI & below Physical Exam Physical Exam: General: Awake, alert and oriented x 3. No acute distress. HEENT: Normocephalic, atraumatic. Pupils equal, round and reactive to light and accommodation. Extraocular muscles are intact. Anicteric sclera. Moist mucous membranes. Neck: No JVD. No bruit. Cardiovascular: Regular. Positive S-4. Normal S-1 and S-2. No S-3. No murmurs or rubs. Pulmonary: Clear to auscultation B/L. No rales, rhonchi or wheezing Abdomen: Bowel sounds x 4, soft. No rebound, guarding or tenderness. No organomegaly. Extremities: No clubbing, cyanosis or edema. +2 pedal pulses bilaterally. Skin: Warm and dry. Results & Data Vital Signs (Past 12 Hours) Vital Signs Temp Pulse Pulse Pulse Resp BP BP 07/12/19 17:35 66 152/75 H 07/12/19 15:54 36.5 C 56 L 16 07/12/19 15:02 58 L 22 158/85 H 07/12/19 15:00 54 L 22 07/12/19 14:32 63 20 136/84 07/12/19 14:30 66 21 07/12/19 14:07 61 23 191/85 H 07/12/19 14:01 60 20 07/12/19 14:00 66 18 191/107 H 07/12/19 13:51 63 22 184/89 H 07/12/19 13:30 60 16 07/12/19 13:00 56 L 19 07/12/19 12:30 55 L 20 07/12/19 12:00 54 L 23 07/12/19 11:49 07/12/19 11:41 56 L 21 07/12/19 11:37 58 L 18 169/76 H 07/12/19 11:28 36.5 C 64 18 136/76 BP Pulse Ox 07/12/19 17:35 07/12/19 15:54 180/80 H 99 07/12/19 15:02 07/12/19 15:00 07/12/19 14:32 98 07/12/19 14:30 97 07/12/19 14:07 97 07/12/19 14:01 98 07/12/19 14:00 97 07/12/19 13:51 07/12/19 13:30 12/26/19 13:00 07/12/19 12:30 07/12/19 12:00 07/12/19 11:49 96 07/12/19 11:41 07/12/19 11:37 07/12/19 11:28 96
[2019-07-12] MEDS: FLUTICASONE/SALMETEROL 250/50 (ADVAIR) 14 PUFF/1 INHALER INH SCH (20:21)
[2019-07-12] MEDS ORDERED: FAMOTIDINE 40 MG TABLET PO SCH (21:00)
[2019-07-12] MEDS ORDERED: TERAZOSIN HCL 1 MG CAP PO SCH (21:00)
[2019-07-12] MEDS ORDERED: TAMSULOSIN HCL 0.4 MG CAP PO SCH (21:00)
[2019-07-13] MEDS ORDERED: MoRPHine SULFATE 4 MG/ML 1 ML CARP\\VIAL IV STA (00:31)
[2019-07-13] MEDS: NITROGLYCERIN 2% OINTMENT 30GM TUBE EXT SCH ×2 (03:04→08:59)
[2019-07-13] MEDS ORDERED: LEVOTHYROXINE SODIUM 150 MCG TABLET PO SCH (06:30)
[2019-07-13] MEDS: FLUTICASONE/SALMETEROL 250/50 (ADVAIR) 14 PUFF/1 INHALER INH SCH (08:36)
[2019-07-13] MEDS: LACTOBACILLUS ACIDOPHILUS (FLORANEX) TAB PO SCH (08:39)
[2019-07-13] MEDS ORDERED: METOPROLOL TARTRATE 25 MG TAB PO SCH (09:00)
[2019-07-13] MEDS ORDERED: POTASSIUM CHLORIDE 10 MEQ TABCR PO SCH (09:00)
[2019-07-13] MEDS ORDERED: ASPIRIN 81 MG ECTAB PO SCH (09:00)
[2019-07-13] MEDS ORDERED: LOSARTAN POTASSIUM 50 MG TAB PO SCH (09:00)
[2019-07-13] MEDS ORDERED: hydroCHLOROthiazide 25 MG TAB PO SCH ×2 (09:00)
[2019-07-13] MEDS ORDERED: TRIAMCINOLONE ACET NASAL SPRAY 10.8ML BTL SCH (09:00)
[2019-07-13] MEDS ORDERED: ATORVASTATIN 40 MG TAB PO SCH (09:00)
[2019-07-13] MEDS ORDERED: AMLODIPINE BESYLATE 5 MG TAB PO SCH ×2 (09:00)
[2019-07-13] MEDS ORDERED: CLOPIDOGREL BISULFATE 75 MG TAB PO SCH (09:00)
[2019-07-13] MEDS ORDERED: VERAPAMIL HCL 180 MG TABCR PO SCH (09:00)
[2019-07-13] MEDS ORDERED: SERTRALINE HCL 50 MG TABLET PO SCH (09:00)
[2019-07-13] MEDS ORDERED: MoRPHine SULFATE 2 MG/ML CARP ONE (11:51)
[2019-07-13] MEDS ORDERED: NiCARDipine HCL INJ 2.5 MG/ML 10 ML AMP ONE (12:02)
[2019-07-13] MEDS ORDERED: HEPARIN (PORCINE) 1000 UNIT/ML 10 ML (CATH LAB USE ONLY) ONE ×2 (12:02→14:43)
[2019-07-13] MEDS ORDERED: fentaNYL citrate 100 MCG/2 ML VIAL ONE ×2 (12:02→14:43)
[2019-07-13] MEDS ORDERED: NITROGLYCERIN/D5W 100MCG/ML 20ML SYR ONE (12:03)
[2019-07-13] MEDS ORDERED: MIDAZOLAM HCL 1 MG/ML 2ML VIAL ONE ×2 (12:03→14:44)
[2019-07-13 12:05] LABS: Hematocrit (blood only) 41.9 % (42-52); Hemoglobin 14.3 g/dL (14.0-18.0); Mean Corpuscular Hgb Conc 34.1 g/dL (32-36); Mean Corpuscular Volume 90.9 fL (80-100); Mean Platelet Volume 10.3 fL (7.4-10.4); Platelet Count 174 K/uL (130-400); RDW Standard Deviation 46.7 fL (36.4-46.3); Red Blood Count 4.61 M/uL (4.7-6.1); White Blood Count 7.13 K/uL (4.8-10.8)
[2019-07-13] MEDS ORDERED: Nursing to Pharmacy Communication ONE (12:12)
--- NOTE | 2019-07-13 12:23 | Cardiology Progress Note ---
Date of Service July 13, 2019 Assessment & Plan (1) Chest pain: (2) Coronary atherosclerosis of [place] coronary artery: (3) Hypertensive urgency: Unfortunately his discomfort persist despite adequate blood pressure control. This is very similar to his presenting symptoms prior to PCI in March. Given the above we will proceed with cardiac catheterization now. The patient and family are in agreement with this plan. I will give him IV morphine at this time to control his pain until cardiac catheterization is performed. Otherwise his blood pressure responding well to the current regimen and further titration will be performed after the cardiac catheterization. Subjective Patient seen and examined with and daughters at bedside. States that chest pain is recurring again this a.m. and again describes as 4 out of 10 substernal pressure. He states that this discomfort is exactly similar to the pain he experienced prior to PCI. Otherwise he denies any shortness of breath, diaphoresis, nausea, palpitations or lightheadedness. His blood pressure has responded nicely to medical therapy overnight however given the fact that his blood pressures not well controlled his discomfort persists. Telemetry reviewed: Normal sinus rhythm without arrhythmia or significant ectopy. Review of Systems Review of Systems: All systems reviewed & are unremarkable except as noted in HPI & below Physical Exam Physical Exam: General: Awake, alert and oriented x 3. No acute distress. HEENT: Normocephalic, atraumatic. Pupils equal, round and reactive to light and accommodation. Extraocular muscles are intact. Anicteric sclera. Moist mucous membranes. Neck: No JVD. No bruit. Cardiovascular: Regular. Positive S-4. Normal S-1 and S-2. No S-3. No murmurs or rubs. Pulmonary: Clear to auscultation B/L. No rales, rhonchi or wheezing Abdomen: Bowel sounds x 4, soft. No rebound, guarding or tenderness. No organomegaly. Extremities: No clubbing, cyanosis or edema. +2 pedal pulses bilaterally. Skin: Warm and dry. Results & Data Vital Signs (Past 12 Hours) Vital Signs Temp Pulse Pulse Resp BP Pulse Ox 07/13/19 11:42 36.4 C L 55 L 16 138/74 95 07/13/19 07:28 36.3 C L 77 19 151/75 H 95 07/13/19 03:13 36.6 C 73 18 146/68 H 95 07/13/19 00:22 36.6 C 72 18 169/79 H 95
[2019-07-13 12:38] LABS: BUN Creatinine Ratio 16.5 (10-20); Calcium 8.6 mg/dl (8.5-10.1); Est GFR (African American) 87.5; Est GFR (Non-African American) 75.5; Potassium 3.6 mmol/L (3.5-5.1)
--- NOTE | 2019-07-13 12:50 | Hospitalist Progress Note ---
Date of Service July 13, 2019 Assessment & Plan (1) Chest pain: (2) Coronary atherosclerosis of [place] coronary artery: Troponin was negative x 3 EKG was NSR, no ischemic changes. Echo was unchanged from that of 11/2018 with severe concentric LVH, EF 60-65, No segmental wall motion abnormalities. Grade 1 diastolic dysfunction. Family reported previous ischemic event when he got stents in 11/2018 was similar without abnormalities. Due to this and persistent pain, I discussed with Information Systems Coordinator Dr Lopez. Will get a cardiac cath today (3) Hypertension: Monitor BP Continue medications until after cardiac cath (4) Asthma: Stable Can continue home meds after procedures (5) Hypothyroidism: TSH 0.308 Continue levothyroxine Subjective Patient still reports retrosternal chest pain for over 10 Not referred at the moment. Not associated with shortness of breath. Occurring at rest Patient reports persistent pain 4/10, retrosternal, not referred, occuring at rest No Shortness of breath at this time No dizziness, palpitations, leg swelling Reports chronic cough Review of Systems Review of Systems: All systems reviewed and unremarkable except for mentioned above. Physical Exam Physical Exam: General: Well nourished, no acute distress Eyes: PERRL, conjunctivae normal, not pale, anicteric sclerae, EOM intact bilaterally ENMT: External ear and nose normal, oropharynx normal Neck: Normal visual inspection, no tracheal deviation, no swelling noted Respiratory: Normal respiratory effort, no respiratory distress, lungs clear to auscultation, no crackles and no wheezes Cardiovascular: Pulse is RRR. S1 S2 no murmur. no leg swelling Chest (Breasts): Chest: normal inspection of chest . No tenderness on palpation Gastrointestinal (Abdomen): Abdomen is not distended, soft, non-tender to palpation, no guarding, no palpable hepatosplenomegaly, normal bowel sounds Neurologic: Alert and oriented x 3, No focal weakness, sensation grossly intact Psychiatric: Euthymic affect, no depressed affect Results & Data Vital Signs (Past 12 Hours) Vital Signs Temp Pulse Pulse Resp BP Pulse Ox 07/13/19 11:42 36.4 C L 55 L 16 138/74 95 07/13/19 07:28 36.3 C L 77 19 151/75 H 95 07/13/19 03:13 36.6 C 73 18 146/68 H 95 Laboratory Results Laboratory Results - last 24 hr 07/12/19 07/12/19 07/12/19 15:43 17:03 23:01 WBC RBC Hgb Hct MCV MCH MCHC RDW Std Deviation RDW Coeff of Valentino Plt Count MPV Sodium Potassium Chloride Carbon Dioxide Anion Gap BUN Creatinine Est Cr Clr Drug Dosing Est GFR ( Amer) Est GFR (Non-Af Amer) BUN/Creatinine Ratio Glucose Calcium Troponin I 0.021 0.021 TSH 0.308 07/13/19 07/13/19 11:40 11:40 WBC 7.13 RBC 4.61 L Hgb 14.3 Hct 41.9 L MCV 90.9 MCH 31.0 MCHC 34.1 RDW Std Deviation 46.7 H RDW Coeff of Valentino 14.0 Plt Count 174 MPV 10.3 Sodium 139 Potassium 3.6 Chloride 108 H Carbon Dioxide 25 Anion Gap 6.0 BUN 16 Creatinine 0.97 Est Cr Clr Drug Dosing 68.0 Est GFR ( Amer) 87.5 Est GFR (Non-Af Amer) 75.5 BUN/Creatinine Ratio 16.5 Glucose 85 Calcium 8.6 Troponin I TSH (1) Hypertension Hypertension type: essential hypertension Qualified Code(s): I10 - Essential (primary) hypertension
[2019-07-13] MEDS ORDERED: NITROGLYCERIN/D5W 100 MCG/ML BTL ONE (13:10)
[2019-07-13] MEDS ORDERED: HEPARIN 25000 UNIT/500 ML D5W IV ONE (13:10)
--- NOTE | 2019-07-13 13:17 | Pre Anesthesia Assessment ---
Date of Service July 13, 2019 Pre Sedation Assessment Vital Signs Temp Pulse Pulse Pulse Resp BP BP 07/13/19 11:42 97.5 F L 55 L 16 138/74 07/13/19 07:28 97.3 F L 77 19 151/75 H 07/13/19 03:13 97.9 F 73 18 146/68 H 07/13/19 00:22 97.9 F 72 18 169/79 H 07/12/19 20:14 73 152/79 H 07/12/19 20:00 97.9 F 64 18 153/69 H 07/12/19 17:35 66 152/75 H 07/12/19 15:54 97.7 F 56 L 16 07/12/19 15:02 58 L 22 158/85 H 07/12/19 15:00 54 L 22 07/12/19 14:32 63 20 136/84 07/12/19 14:30 66 21 07/12/19 14:07 61 23 191/85 H 07/12/19 14:01 60 20 07/12/19 14:00 66 18 191/107 H 07/12/19 13:51 63 22 184/89 H 07/12/19 13:30 60 16 BP Pulse Ox 07/13/19 11:42 95 07/13/19 07:28 95 07/13/19 03:13 95 07/13/19 00:22 95 07/12/19 20:14 07/12/19 20:00 92 07/12/19 17:35 07/12/19 15:54 180/80 H 99 07/12/19 15:02 07/12/19 15:00 07/12/19 14:32 98 07/12/19 14:30 97 07/12/19 14:07 97 07/12/19 14:01 98 07/12/19 14:00 97 07/12/19 13:51 07/12/19 13:30 Cardiovascular RRR, no murmur, no edema Respiratory normal respiratory effort, lungs clear to auscultation Pre-Sedation Airway Assessment Smoking Status: Never smoker Hx Sleep Apnea: No Hx Difficult Intubation: No Short, Thick Neck: No Thyromental Distance: > or= 3.5 Finger Breadths Oral Cavity: + WNL Mallampati Class: I ASA: ASA3 NPO Status Date of Last Intake of Fluids: 07/12/19 Time of Last Intake of Fluids: 17:30 Date of Last Intake of Solid Food: 07/12/19 Time of Last Intake of Solid Foods: 17:30 Procedure Planning Contraindications for Sedation: none Current Medications Reviewed: Yes Notes The planned sedation has been discussed with the patient. Informed Consent was obtained. I have identified the patient, determined the appropriateness of sedation and have assessed the patient immediately prior to the procedure. All medicine(s) and interventions are by my order.
--- NOTE | 2019-07-13 13:18 | Post Anesthesia Assessment ---
Date of Service July 13, 2019 Post Sedation Assessment Vital Signs Temp Pulse Pulse Pulse Resp BP BP 07/13/19 11:42 97.5 F L 55 L 16 138/74 07/13/19 07:28 97.3 F L 77 19 151/75 H 07/13/19 03:13 97.9 F 73 18 146/68 H 07/13/19 00:22 97.9 F 72 18 169/79 H 07/12/19 20:14 73 152/79 H 07/12/19 20:00 97.9 F 64 18 153/69 H 07/12/19 17:35 66 152/75 H 07/12/19 15:54 97.7 F 56 L 16 07/12/19 15:02 58 L 22 158/85 H 07/12/19 15:00 54 L 22 07/12/19 14:32 63 20 136/84 07/12/19 14:30 66 21 07/12/19 14:07 61 23 191/85 H 07/12/19 14:01 60 20 07/12/19 14:00 66 18 191/107 H 07/12/19 13:51 63 22 184/89 H 07/12/19 13:30 60 16 BP Pulse Ox 07/13/19 11:42 95 07/13/19 07:28 95 07/13/19 03:13 95 07/13/19 00:22 95 07/12/19 20:14 07/12/19 20:00 92 07/12/19 17:35 07/12/19 15:54 180/80 H 99 07/12/19 15:02 07/12/19 15:00 07/12/19 14:32 98 07/12/19 14:30 97 07/12/19 14:07 97 07/12/19 14:01 98 07/12/19 14:00 97 07/12/19 13:51 07/12/19 13:30 Recovery Score Activity: Moves 4 extremities Respiration: Deep Breath/Cough Circulation: +/-20% PreAnes Value Consciousness: Fully Awake Oxygen Saturation: O2 needed for >90% Discharge Sedation Level of Care: Fast Track Phase II Post Sedation Plan On clinical assessment, the patient appears to have tolerated the sedation without complications. Patient is recovering as anticipated. Patient will continue to be monitored by nursing and may be discharged when sedation discharge criteria are met per below protocol. Upon Completions of procedure up to 15 minutes continue every 5 minute vital signs and the P.A.R. score; then discharge to a Phase I or Fast Track to Phase II per the following guidelines: * Discharge Patient to appropriate Phase II area if PAR is 8 or greater or return to pre- procedure baseline. The post - procedure orders will be as directed. * If PAR score is less than 8 or not return to pre-procedure baseline then patient will follow Phase I monitoring till PAR is reached for Phase II. The Phase I may be done in procedure room or may call to secure a Phase I area. * If naloxone or flumazenil are used for reversal, hold in Phase I for continued monitoring from when last reversal dose was given for a minimum of 60 minutes or longer pending the nurse and/or physician discretion of patient condition before discharge to Phase II. Please call the Sedation Physician to re-evaluate and complete post-note for discharge to Phase II area. Do NOT discharge from procedure sedation or Phase 1 until post- sedation evaluation note is complete by procedure /sedation MD Sedation Discharge Instructions to be given to the patient at discharge to home.
[2019-07-13] MEDS ORDERED: NITROGLYCERIN/D5W 100MCG/ML 250 ML IV SCH (13:35)
--- NOTE | 2019-07-13 13:35 | Cardiac Catheterization ---
[facility] Data: Medical Administrator Cardiac Status Clinical evaluation leading to the procedure CAD Presenation: Unstable angina Anginal Classification: CCS IV Heart Failure: No Cardiogenic Shock within 24 Hours: No Cardiac Arrest within 24 Hours: No Imaging Studies Past 6 Months: No Stress Studies Past 6 Months: No Diagnostic Physicians Name: Chase Cotter MD Status: Elective Closure Device Percutaneous Entry Location: Radial Closure Device: Radial Band Recommendations: CABG PCI Indication: Angina despite med therapy and Unstable Angina Intraprocedure Events Significant Disection: No Perforation: No Cardiac Cath Procedure Full Procedure Date July 13, 2019 Pre-Procedure Diagnosis Pre-Procedure Diagnosis: Angina AUC Score AUC Score: 8 Post-Procedure Diagnosis Post-Procedure Diagnosis: Severe CAD and Successful PCI Procedure(s) Performed Procedure(s) Performed: Coronary Angiography and Left Heart Cath Astrophysics Professor Chase Cotter MD Department Sales Manager(s) Azul Estimated Blood Loss Estimated Blood Loss: 10 Medication(s) Medication(s): Fentanyl, Heparin, Lidocaine 1%, Nicardipine, Nitroglycerin and Versed Summary of Findings Indication: Accelerating angina Access: 6 Fr slender right radial artery Catheters: [place] Findings: LM -Short vessel without significant disease LAD -99% ostial/proximal in-stent restenosis with MELISSA I/II flow distally. Re mainder of LAD widely patent. Circumflex -80 to 90% ostial stenosis, extending into prior proximal stent. Remainder of circumflex system widely patent RCA -dominant, mild luminal irregularities, 40% disease in mid PDA. LVEDP -0 Arterial Closure: TR band Summary: 1. Severe multi-vessel coronary artery disease -99% ostial LAD in-stent restenosis 80 to 90% ostial circumflex disease extending into prior proximal stent 2. Low intracardiac filling pressure Recommendations: With ostial LAD/circumflex in-stent restenosis recommend evaluation for CABG Currently chest pain-free will start on heparin and nitroglycerin infusion and transfer to [place] for further evaluation by cardiac surgery. Hemodynamics Rest Ao:: 88/41 Final Ao: 95/49 LV: 92/0 Recommendations Recommendations: CABG Specimens Specimens: None Radiation Exposure (mGy) 771 Contrast (mls) 75 Fluids (cc crystalloids) Fluids (cc crystalloids): 70 Drains Drains: None Anesthesia Moderate Procedural Complication(s) None Disposition PCU I attest to the content of the Intraoperative Record and any orders documented therein. Any exceptions are noted below. [facility] Card Cath Procedure Codes Cardiac Catheterization Procedure 1: Cardiovascular Cath Procedures: 94029 Coronaries and LHC (+/-LV) Moderate Sedation Procedure 1: Sedation/Anesthesia: 03841 Mod Sedation by the same physician;Init15 Min Child Age 5 & Up PG Care Time/CCT Total # of Minutes Spent Total Time Spent with Patient: Total time spent is greater than 50% in coordination of care (as documented) at patient's floor/unit and/or counseling patient:
[2019-07-13] MEDS ORDERED: SODIUM CHLORIDE 0.9% 1000ML 1,000 ML IV SCH (13:45)
[2019-07-13] MEDS ORDERED: HEPARIN SODIUM/DEXTROSE 25,000 UNITS/500 ML BAG IV SCH (13:45)
[2019-07-13] MEDS ORDERED: MoRPHine SULFATE 2 MG/ML CARP IV PRN (14:22)
[2019-07-13] MEDS ORDERED: Heparin IV Low Dose *NO* Bolus IV SCH (14:30)
--- NOTE | 2019-07-13 14:50 | Discharge Summary ---
Date of Service July 13, 2019 Admission HPI Per Admitting Provider 78-year-old male who presents the ED with chest pain. Patient has history of CAD, s/p MARY to proximal left circumflex and MARY x2 to mid LAD in 11/2018. Patient reports he has been having episodes of increasing exertional chest pain shortness of breath for the past few weeks. Symptoms have been more severe over the past 2 days. Patient reports that typically he is very active and walks 1 mile every 1 to 2 days. He has been unable to do that recently secondary to his symptoms. Last evening, while taking out the garbage, he developed an episode of severe chest pressure with associated shortness of breath. Symptoms resolved after resting and taking 2 baby aspirin. This morning, patient had some mild residual chest pressure and therefore presented to the ED for further evaluation. Patient rates his pain at its worst as a #8/10, currently #2/10. He did not take any nitroglycerin at home. Patient reports some mild radiation of the pain into his neck. He has had associated lightheadedness however no syncopal event. No associated diaphoresis or nausea. Patient denies any recent travel or sick contacts. No fevers or chills. Denies abdominal pain, vomiting, diarrhea. No urinary symptoms. In the ED, initial troponin is negative and EKG does not show any acute ST changes. Initial BP controlled at 136/76 however has been steadily increasing, highest BP being 191/107. Patient was given Lovenox 90 mg SQ. Admission Exam Per Admitting Provider Constitutional: WD/WN, vitals as above Eyes: PERRL, conjunctivae normal, anicteric sclerae ENMT: external ear and nose normal, oropharynx normal Respiratory: normal respiratory effort, lungs clear to auscultation Cardiovascular: Rate/Rhythm: regular rate and regular rhythm Vessels: normal peripheral pulses Extremities: no edema Chest (Breasts): Additional Comments: Chest nontender to palpation Gastrointestinal (Abdomen): normal bowel sounds, soft, nontender, no hepatosplenomegaly Musculoskeletal: no cyanosis or clubbing, extremities motor strength 5/5 Skin: no rashes, warm and dry Neurologic: PERRL, EOMI, accommodation nl, no face palsy, no dysarthria Psychiatric: A+Ox3, euthymic affect Principal Diagnosis Severe CAD (LAD instent restenosis 99%, Circumflex 80- 90% stenosis) Discharge Exam General: No acute distress Eyes: PERRL, conjunctivae normal, EOM intact bilaterally ENMT: External ear and nose normal, oropharynx normal Neck: Normal visual inspection, no tracheal deviation, no swelling noted Respiratory: Normal respiratory effort, no respiratory distress, lungs clear to auscultation, no crackles and no wheezes Cardiovascular: Pulse is RRR. S 1 S2 no pedal edema Chest (Breasts): Chest: normal inspection of chest , no tenderness on palpation Gastrointestinal (Abdomen): Abdomen is not distended, soft, non-tender to palpation, no guarding, no palpable hepatosplenomegaly, normal bowel sounds Skin: No rash noted on gross inspection, No ulcers noted Neurologic: Alert and oriented x 3, No focal weakness, sensation grossly intact Psychiatric: Euthymic affect, no depressed affect Discharge Data Allergies Allergy/AdvReac Type Severity Reaction Status Date / Time codeine AdvReac Mild N/V Verified 07/12/19 12:30 Consultations 07/12/19 13:26 ED Decision to Admit Stat 07/12/19 16:10 Consult Cardiology Routine 07/13/19 12:17 Consult Cardiac Catheterization Routine Indication: Accelerating angina Access: 6 Fr slender right radial artery Catheters: [place] Findings: LM -Short vessel without significant disease LAD -99% ostial/proximal in-stent restenosis with MELISSA I/II flow distally. Remainder of LAD widely patent. Circumflex -80 to 90% ostial stenosis, extending into prior proximal stent. Remainder of circumflex system widely patent RCA -dominant, mild luminal irregularities, 40% disease in mid PDA. LVEDP -0 Arterial Closure: TR band Summary: 1. Severe multi-vessel coronary artery disease -99% ostial LAD in-stent restenosis 80 to 90% ostial circumflex disease extending into prior proximal stent 2. Low intracardiac filling pressure Recommendations: With ostial LAD/circumflex in-stent restenosis recommend evaluation for CABG Currently chest pain-free will start on heparin and nitroglycerin infusion and t marssfer to [place] for further evaluation by cardiac surgery. Procedures Performed Operation Date: 07/13/19 12:00 Actual Procedures p Cineradiography w/Routine Exam - Justin Cotter MD Ordered Studies 07/13/19 12:02 CL Cath Imgs for PACS use only Stat Hospital Course (1) Chest pain: (2) Coronary atherosclerosis of [place] coronary artery: Troponin was negative x 3 EKG was NSR, no ischemic changes. Echo was unchanged from that of 11/2018 with severe concentric LVH, EF 60-65, No segmental wall motion abnormalities. Grade 1 diastolic dysfunction. Family reported previous ischemic event when he got stents in 11/2018 was similar without abnormalities. Due to this and persistent pain, I discussed with Warp Changer Dr Lopez. Patient had a left heart cath which show severe CAD as detailed in cath report above. Arrangements made to transfer to cardiology in [facility] under Dr Perea for CABG. I discussed with transfer center who stated that helicopter transport may not be possible due to weather. Ground transport being arranged. Patient currently on heparin drip. Continue nitro drip (titrate to pain) and monitor hemodynamics. Patient still having intermittent pain After further discussions with Dr. Lopez, patient got balloon pump placement prior to transfer to [facility] (3) Hypertension: Holding antihypertensives for now while on nitro drip and requiring procedures Will continue to monitor and manage appropriately (4) Asthma: Stable Can continue home meds after procedures (5) Hypothyroidism: TSH 0.308 Continue levothyroxine Total Time Total Time Spent Total Time Spent (In Minutes): 50 Total Time Includes: Examination of the Patient, Discharge Planning and Commu nication With Other Providers Discharge Plan Discharge Items Patient Disposition: Transfer Acute Care Hospital Reason For Visit: CHEST PAIN Discharge Diagnosis: Severe CAD (LAD instent restenosis 99%, Circumflex 80- 90% stenosis) Condition on Discharge: Serious Activity: As commented below Activity Comment: Reassess after treatment Non-emergency contact: War[employer] Call non-emergency contact if: your symptoms worsen Follow-up/Referrals: Donn Clarke MD [Primary Care Provider] - Diet: Heart Healthy Addtl Attending Provider Instructions: You presented to the hospital for chest pain. Troponins, EKG and Echo were unremarkable. However due to persistent chest pain, you had cardiac cath which showed occlusion of LAD stent and stenosis in your circumflex. You require further evaluation for bypass. You are being transferred to [facility] for this. Pending Studies at Discharge: No Stand-Alone Forms: My DietBetter Skilled Items Patient informed of condition?: Yes DNR: No Discharge Level of Care: Other Communicable Disease: No Discharge Prognosis: Other Lines: Peripheral IV Urinary Catheter: No Medications and DC Order Prescriptions: New nitroglycerin [Nitrostat] 0.4 mg Tablet, Sublingual 0.4 mg sublingual UD PRN (Reason: chest pain) Qty: 30 RF: 0 Continued levothyroxine 137 mcg Tablet 137 mcg PO 4XWK RF: 0 ranitidine HCl 300 mg Tablet 300 mg PO QPM RF: 0 aspirin [Aspir-Low] 81 mg Tablet,Delayed Release (Dr/Ec) 81 mg PO DAILY RF: 0 tamsulosin [Flomax] 0.4 mg capsule 0.4 mg PO HS RF: 0 triamcinolone acetonide 55 mcg Aerosol,Oden 1 spray INTRANASAL DAILY RF: 0 levothyroxine [Synthroid] 150 mcg tablet 150 mcg PO 3XWK RF: 0 sertraline 50 mg Tablet 50 mg PO DAILY RF: 0 loratadine [Claritin] 10 mg Tablet 10 mg PO DAILY RF: 0 potassium chloride [Klor-Con M10] 10 mEq tablet,ER particles/crystals 10 meq PO DAILY RF: 0 dextran 70-hypromellose (PF) 0.1-0.3 % Dropperette 1 drp OPL QID PRN (Reason: Dry Eyes) RF: 0 guaifenesin [Mucinex] 600 mg Tablet Extended Release 12hr 600 mg PO Q12H PRN (Reason: Congestion) RF: 0 Lactinex 1 million cell tablet,chewable 1 tab PO BID Qty: 30 RF: 0 atorvastatin 40 mg tablet 40 mg PO DAILY RF: 0 ipratropium-albuterol 0.5 mg-3 mg(2.5 mg base)/3 mL solution for nebulization 3 ml INHALATION Q4H PRN (Reason: Shortness Of Breath) RF: 0 clopidogrel 75 mg tablet 75 mg PO DAILY RF: 0 albuterol sulfate 90 mcg/actuation Hfa Aerosol Inhaler 2 puff INHALATION Q6H PRN (Reason: Shortness Of Breath) RF: 0 acetaminophen 500 mg Capsule 500 mg PO UD PRN (Reason: Pain) RF: 0 losartan 50 mg tablet 100 mg PO DAILY RF: 0 fluticasone propion-salmeterol [Wixela Inhub] 250-50 mcg/dose Blister With Device 1 inh INHALATION BID RF: 0 Discontinued meclizine 25 mg Tablet 25 mg PO Q6 PRN (Reason: DIZZYNESS) RF: 0 verapamil 180 mg tablet extended release 180 mg PO DAILY RF: 0 hydrochlorothiazide 25 mg tablet 25 mg PO 4XWK RF: 0 Discharge Orders: Discharge Order (Routine); Ordered 07/13/19 Ordered By: Quiana Castro Admission Data Admit Date/Time: 07/12/19 14:11 Attending Provider: Quiana Castro I. Admit Provider: Charlie Urban Primary Care Provider: Donn Clarke Other Providers: Charlie Urban ; Toni Lopez ; Justin Cotter ; Bony Gudino Other Interventions: Discharge Summary Assessment (RN) Last Done: 07/13/19 16:29 DC Date/Time DO NOT enter until pt leaves facility: 07/13/19 16:10
--- NOTE | 2019-07-13 16:01 | Pre Anesthesia Assessment ---
Date of Service July 13, 2019 Pre Sedation Assessment Vital Signs Temp Pulse Pulse Resp BP Pulse Ox 07/13/19 14:20 98.2 F 72 18 136/77 96 07/13/19 14:05 98.6 F 73 18 133/71 95 07/13/19 13:31 71 16 141/60 H 95 07/13/19 13:16 97.5 F L 65 16 106/66 95 07/13/19 11:42 97.5 F L 55 L 16 138/74 95 07/13/19 07:28 97.3 F L 77 19 151/75 H 95 07/13/19 03:13 97.9 F 73 18 146/68 H 95 07/13/19 00:22 97.9 F 72 18 169/79 H 95 07/12/19 20:14 73 152/79 H 07/12/19 20:00 97.9 F 64 18 153/69 H 92 07/12/19 17:35 66 152/75 H Cardiovascular RRR, no murmur, no edema Respiratory normal respiratory effort, lungs clear to auscultation Pre-Sedation Airway Assessment Smoking Status: Never smoker Hx Sleep Apnea: No Hx Difficult Intubation: No Short, Thick Neck: No Thyromental Distance: > or= 3.5 Finger Breadths Oral Cavity: + WNL Mallampati Class: I ASA: ASA3 NPO Status Date of Last Intake of Fluids: 07/12/19 Time of Last Intake of Fluids: 17:30 Date of Last Intake of Solid Food: 07/12/19 Time of Last Intake of Solid Foods: 17:30 Procedure Planning Contraindications for Sedation: none Current Medications Reviewed: Yes Notes The planned sedation has been discussed with the patient. Informed Consent was obtained. I have identified the patient, determined the appropriateness of sedation and have assessed the patient immediately prior to the procedure. All medicine(s) and interventions are by my order.
--- NOTE | 2019-07-13 16:03 | Post Anesthesia Assessment ---
Date of Service July 13, 2019 Post Sedation Assessment Vital Signs Temp Pulse Pulse Resp BP Pulse Ox 07/13/19 14:20 98.2 F 72 18 136/77 96 07/13/19 14:05 98.6 F 73 18 133/71 95 07/13/19 13:31 71 16 141/60 H 95 07/13/19 13:16 97.5 F L 65 16 106/66 95 07/13/19 11:42 97.5 F L 55 L 16 138/74 95 07/13/19 07:28 97.3 F L 77 19 151/75 H 95 07/13/19 03:13 97.9 F 73 18 146/68 H 95 07/13/19 00:22 97.9 F 72 18 169/79 H 95 07/12/19 20:14 73 152/79 H 07/12/19 20:00 97.9 F 64 18 153/69 H 92 07/12/19 17:35 66 152/75 H Recovery Score Activity: Moves 4 extremities Respiration: Deep Breath/Cough Circulation: +/-20% PreAnes Value Consciousness: Fully Awake Oxygen Saturation: > 92% On Room Air Post Anesthesia Score: 10 Discharge Sedation Level of Care: Fast Track Phase II Post Sedation Plan On clinical assessment, the patient appears to have tolerated the sedation without complications. Patient is recovering as anticipated. Patient will continue to be monitored by nursing and may be discharged when sedation discharge criteria are met per below protocol. Upon Completions of procedure up to 15 minutes continue every 5 minute vital signs and the P.A.R. score; then discharge to a Phase I or Fast Track to Phase II per the following guidelines: * Discharge Patient to appropriate Phase II area if PAR is 8 or greater or return to pre- procedure baseline. The post - procedure orders will be as directed. * If PAR score is less than 8 or not return to pre-procedure baseline then patient will follow Phase I monitoring till PAR is reached for Phase II. The Phase I may be done in procedure room or may call to secure a Phase I area. * If naloxone or flumazenil are used for reversal, hold in Phase I for continued monitoring from when last reversal dose was given for a minimum of 60 minutes or longer pending the nurse and/or physician discretion of patient condition before discharge to Phase II. Please call the Sedation Physician to re-evaluate and complete post-note for discharge to Phase II area. Do NOT discharge from procedure sedation or Phase 1 until post- sedation evaluation note is complete by procedure /sedation MD Sedation Discharge Instructions to be given to the patient at discharge to home.
--- NOTE | 2019-07-13 16:09 | Cardiology Progress Note ---
Date of Service July 13, 2019 Subjective Called by nursing patient with recurrent chest discomfort status post cardiac cath. He is already on a nitro drip and been given IV morphine unfortunately pain persists. Once again I saw and examined the patient at bedside with family present given his ongoing chest discomfort I believe is necessary to support him with an intra-aortic balloon pump for transfer and as a bridge to revascularization. Dr. Cotter very kindly is agreeable to take the patient back to the lab for balloon pump placement. The patient and his family are in agreement with the above plan. Patient seen and examined once again after balloon pump placement now pain-free. Transport is present in the [employer] for transport to [facility]. A total of 120 minutes of direct patient care has been spent today by myself. Results & Data Vital Signs (Past 12 Hours) Vital Signs Temp Pulse Pulse Resp BP Pulse Ox 07/13/19 14:20 36.8 C 72 18 136/77 96 07/13/19 14:05 37.0 C 73 18 133/71 95 07/13/19 13:31 71 16 141/60 H 95 07/13/19 13:16 36.4 C L 65 16 106/66 95 07/13/19 11:42 36.4 C L 55 L 16 138/74 95 07/13/19 07:28 36.3 C L 77 19 151/75 H 95
--- NOTE | 2019-07-13 16:13 | Cardiac Catheterization ---
[facility] Data: [employer] Experience Strategy Cardiac Status Clinical evaluation leading to the procedure CAD Presenation: Unstable angina Diagnostic Physicians Name: Chase Cotter MD Closure Device Recommendations: CABG Cardiac Cath Procedure Full Procedure Date July 13, 2019 Pre-Procedure Diagnosis Pre-Procedure Diagnosis: Angina AUC Score AUC Score: 8 Post-Procedure Diagnosis Post-Procedure Diagnosis: Cardiothoracic Finding (Successful placement of IABP) Procedure(s) Performed Procedure(s) Performed: IABP Pinmaker Chase Cotter MD Neighborhood Conservation Officer(s) Gómez Estimated Blood Loss Estimated Blood Loss: 3 Medication(s) Medication(s): Fentanyl, Lidocaine 1% and Versed Summary of Findings Patient brought back to the [employer] Experience Strategy for IABP placement in the setting of mild recurrent chest pain despite nitroglycerin infusion. Procedure: Right TECHNICAL BUYER access with micropuncture and ultrasound guidance Appropriate access site confirmed via femoral angiography 8 Fr sheath placed to right TECHNICAL BUYER IABP placed without difficulty under fluoroscopic guidance Catheter and sheath sutured into place Appropriate one-to-one augmentation Summary: 1. Successful placement of IABP via right common femoral artery Hemodynamics Rest Ao:: -- Final Ao: -- LV: -- Recommendations Recommendations: CABG Specimens Specimens: None Radiation Exposure (mGy) - Contrast (mls) - Fluids (cc crystalloids) Fluids (cc crystalloids): - Drains Drains: - Anesthesia Moderate Procedural Complication(s) None Disposition PCU I attest to the content of the Intraoperative Record and any orders documented therein. Any exceptions are noted below. [facility] Card Cath Procedure Codes Therapeutic Services & Ancillary Proc Procedure 1: Cardiovascular Tx and Anc Procedures: 07671 Ultrasonic Guidance Vascular Access Procedure 2: Cardiovascular Tx and Anc Procedures: 74331 IABP Insertion Moderate Sedation Procedure 1: Sedation/Anesthesia: 90947 Mod Sedation by the same physician;Init15 Min Child Age 5 & Up PG Care Time/CCT Total # of Minutes Spent Total Time Spent with Patient: Total time spent is greater than 50% in coordination of care (as documented) at patient's floor/unit and/or counseling patient:
[2019-07-14] MEDS ORDERED: LEVOTHYROXINE SODIUM 137 MCG TABLET PO SCH (06:30)
== END 2019-07-13 16:10 | disposition short-term general hospital (02) | DRG 272 ==
LOC: ED 11:25 → 2S 11:25 → SUATTDRO 14:11 → 2S 15:19

== ENCOUNTER 2020-12-06 09:54 | Inpatient (IN) ==
[2020-12-06] MEDS ORDERED: PIPERACILL/TAZOBAC CONSULT ACTIVE PRN ×2 (10:19→15:46)
[2020-12-06] MEDS ORDERED: ONDANSETRON INJ 2 MG/ML 2 ML VIAL IV STA (10:19)
[2020-12-06] MEDS ORDERED: SODIUM CHLORIDE 0.9% 1000ML 1,000 ML IV ONE (10:19)
[2020-12-06] MEDS ORDERED: PIPERACILLIN/TAZOBACTAM 4.5 GM/120 ML BAG IV ONE (10:19)
[2020-12-06] MEDS ORDERED: ACETAMINOPHEN 1,000 MG/100 ML VIAL IV STA (10:20)
--- NOTE | 2020-12-06 10:27 | Emergency Department Note ---
Impression & Plan Diffuse abdominal pain, Acute cholecystitis, Vomiting, Tachycardia, Fever ED Provider Note NAME: LAURA FRAGA AGE: 79 SEX: M : 1940 ARRIVES VIA: Ambulance INFORMANT: [Patient][nursing] ED PROVIDER(S): [Vazquez Holbrook MD] CHIEF COMPLAINT: Abdominal pain HISTORY OF PRESENT ILLNESS: The patient is a 79-year-old male who presents with 5 days of symptoms. The patient states that he has had nausea and just has not felt well since eating on Tuesday night. He states that last night he began having some lower abdominal pain and did vomit. This morning, the pain in the left lower abdomen is worse and rated as an 8/10. He vomited 3 times today. He has had lots of chills and shivers. He has noticed some burning with urination over the last few days. He has not had any diarrhea. He has not really had cough, cold or congestion. He states that no one else in his family is ill. He is Covid vaccinated. REVIEW OF SYSTEMS: See HPI for pertinent positives and negatives. A total of ten systems were reviewed and were otherwise negative. PMHx/PSHx: See Below SOCIAL HISTORY: See Below. PHYSICAL EXAM: GENERAL: Patient is in mild distress, shaking. HEENT: No acute trauma, normocephalic atraumatic, mucous membranes dry, no nasal congestion, no scleral icterus. NECK: No stridor, no adenopathy, no meningismus, trachea is midline. LUNGS: Clear to auscultation bilaterally, no wheeze, no rhonchi, breath sounds equal. HEART: No murmurs, mildly tachycardic with a regular rhythm. ABDOMEN: Soft, moderately diffusely tender. There is a small umbilical hernia which is without erythema and minimally tender. No peritonitis. EXTREMITIES: No cyanosis or edema, full range of motion of all the joints without pain or difficulty, no signs for acute trauma. NEUROLOGIC: Awake and alert, no acute motor or sensory deficits, no focal weakness. No speech slur. Trembling. SKIN: No rash, no jaundice, no diaphoresis. DIFFERENTIAL DIAGNOSIS: Sepsis, UTI, pneumonia, metabolic abnormality, electrolyte abnormalities, COVID- 19, diverticulitis, pyelonephritis, cardiac sources, cellulitis, UTI, bacteremia, intracerebral event, toxicologic etiology, neurologic event, as well as other pathologies. EMERGENCY DEPARTMENT COURSE/PROCEDURES: ECG: Indication was tachycardia. The ECG shows a sinus tachycardia with a rate of 105. There is a potential old in inferior infarct. There is no ST elev ation, no PVCs. The QTc is 436. Continuous Cardiac Monitoring: An order was placed for continuous cardiac monitoring. The monitor shows a rate of 108 with sinus tachycardia. Critical Care Note: I have personally spent 51 minutes of critical care time in the direct management of this patient. This includes bedside care, interpretation of diagnostic studies, and testing, discussion with consultants, patient, and family members, and other required patient management activities. This 51 minutes is in excess of all separately billable procedures. MEDICAL DECISION MAKING: There is no leukocytosis or concerning anemia. There is a normal platelet count. No coagulopathy. Potassium is slightly low at 3.4. No kidney failure. Magnesium mildly low at 1.7. There were some liver enzyme elevations noted. Chest film does not show pneumonia, CHF or free air. Urinalysis does not show evidence for infection. Covid testing returned negative. Abdominal and pelvis CT shows evidence for acute cholecystitis. The patient presented febrile and tachycardic. He did meet criteria for sepsis. He was aggressively managed. He was given IV Zosyn as antibiotic coverage. He received 1.5 L of IV saline. He was given IV magnesium and IV Tylenol. He received IV Zofran. The patient does feel improved. He looks improved. His heart rate has decreased. He seems to be much more comfortable. I did speak with general surgery. The patient was seen by surgery while here in the ED. He is being hospitalized and will likely undergo a gallbladder resection. I spoke to the patient and his , case management has been involved. The patient is aware of the need for hospitalization. Past Med/Surg History Medical History Asthma BPH (benign prostatic hyperplasia) Clostridium difficile carrier COPD (chronic obstructive pulmonary disease) Coronary atherosclerosis of [place] coronary artery 11/2018 - MARY to prox L cx, MARY x 2 to mid LAD DVT prophylaxis History of Graves' disease History of malignant melanoma of skin History of pulmonary embolism 2010 - completed Coumadin therapy HTN (hypertension) Hypertension Hypothyroidism Prostate cancer Status post seed implant Skin cancer Surgical History H/O rotator cuff surgery History of appendectomy History of basal cell carcinoma (BCC) excision History of colonoscopy with polypectomy Last 11/03/2016 recommend repeat in 3 years History of cystoscopy History of eye surgery History of hernia repair History of thyroidectomy, total History of vasectomy Status post double vessel coronary artery bypass Status post operation on nasal sinus "09/2002" Family History Father Cancer Prostate and bladder Mother Stroke Breast cancer Social History Smoking Status: Former smoker Age Quit Using Tobacco: 27; Number of Years Since Quit: 50; Second Hand Exposure: No; Hx Alcohol Use: Yes Alcohol type: beer Alcohol Intake Frequency Comment: 1-2 drinks per day Hx Substance Use: No Preferred Language: Gabonese Communication Ability: Effective Grocery Supervisor Required: No Beliefs That Will Affect Care: None marital status: Current Living Situation: Spouse current occupation: Retired Feels Safe at Home: Yes Assistive Devices: None Allergies Allergies Allergy/AdvReac Type Severity Reaction Status Date / Time codeine AdvReac Mild N/V Verified 12/06/20 13:00 Home Meds Home Medications Medication Instructions Recorded Confirmed aspirin [Aspir-Low] 81 mg PO BID 10/31/18 12/06/20 guaifenesin [Mucinex] 600 mg PO Q12H PRN 10/31/18 12/06/20 levothyroxine 137 mcg PO 4XWK 10/31/18 12/06/20 levothyroxine [Synthroid] 150 mcg PO 3XWK 10/31/18 12/06/20 potassium chloride [Klor-Con M10] 20 meq PO QAM 10/31/18 12/06/20 sertraline 50 mg PO DAILY 10/31/18 12/06/20 tamsulosin [Flomax] 0.4 mg PO HS 10/31/18 12/06/20 triamcinolone acetonide 1 spray INTRANASAL DAILY 10/31/18 12/06/20 acetaminophen 500 mg PO UD PRN 07/12/19 12/06/20 albuterol sulfate 2 puff INHALATION Q6H PRN 07/12/19 12/06/20 fluticasone propion-salmeterol 1 inh INHALATION BID 07/12/19 12/06/20 [Wixela Inhub] ipratropium-albuterol 3 ml INHALATION Q4H PRN 07/12/19 12/06/20 Probiotic 1 cap PO BID 07/24/19 12/06/20 meclizine 25 mg PO Q6 PRN 07/24/19 12/06/20 atorvastatin 80 mg PO DAILY 12/06/20 12/06/20 cholecalciferol (vitamin D3) 25 mcg PO DAILY 12/06/20 12/06/20 [Vitamin D3] famotidine 20 mg PO DAILY 12/06/20 12/06/20 fluticasone propion-salmeterol 1 inh INHALATION BID 12/06/20 12/06/20 [Wixela Inhub] hydrochlorothiazide 12.5 mg PO DAILY 12/06/20 12/06/20 losartan 100 mg PO DAILY 12/06/20 12/06/20 verapamil 180 mg PO DAILY 12/06/20 12/06/20 Results & Data (ED) Vital Signs Vital Signs - 24 hr 12/06/20 09:59 12/06/20 10:01 12/06/20 11:00 Temperature 37.3 C Temperature Source Oral Pulse Rate 105 H 108 H 105 H Pulse Rate from SpO2 Sensor 106 H 106 H 107 H Pulse Rhythm Regular Pulse Strength Normal Respiratory Rate 22 23 20 Respiratory Effort / Characteristics Non-Labored Spontaneous Respiratory Depth Normal Respiratory Pattern Regular Blood Pressure 195/70 H 174/81 H 138/58 L Blood Pressure Mean 111 112 84 Blood Pressure Position Sitting Pulse Oximetry 92 95 92 Oxygen Delivery Method Room Air Sepsis New/Unexplained Change in Mental Status No Sepsis Action Taken by Nursing No Action Required 12/06/20 11:04 12/06/20 11:30 12/06/20 11:31 Temperature 38.1 C H Temperature Source Pulse Rate 104 H 103 H Pulse Rate from SpO2 Sensor 95 H 104 H Pulse Rhythm Pulse Strength Respiratory Rate 26 H 23 Respiratory Effort / Characteristics Respiratory Depth Respiratory Pattern Blood Pressure 136/71 136/71 Blood Pressure Mean 92 92 Blood Pressure Position Pulse Oximetry 93 94 94 Oxygen Delivery Method Room Air Room Air Sepsis New/Unexplained Change in Mental Status Sepsis Action Taken by Nursing 12/06/20 11:32 12/06/20 12:00 12/06/20 12:05 Temperature 38.1 C H 37.2 C Temperature Source Oral Oral Pulse Rate 101 H Pulse Rate from SpO2 Sensor 102 H Pulse Rhythm Pulse Strength Respiratory Rate 20 Respiratory Effort / Characteristics Respiratory Depth Respiratory Pattern Blood Pressure 135/66 Blood Pressure Mean 89 Blood Pressure Position Pulse Oximetry 93 Oxygen Delivery Method Sepsis New/Unexplained Change in Mental Status Sepsis Action Taken by Nursing 12/06/20 13:53 Temperature 36.9 C Temperature Source Oral Pulse Rate Pulse Rate from SpO2 Sensor Pulse Rhythm Pulse Strength Respiratory Rate Respiratory Effort / Characteristics Respiratory Depth Respiratory Pattern Blood Pressure Blood Pressure Mean Blood Pressure Position Pulse Oximetry Oxygen Delivery Method Sepsis New/Unexplained Change in Mental Status Sepsis Action Taken by Half-Way Medications Current Medication List: was personally reviewed by me Laboratory Data Attestation: I reviewed the patient's lab results. Result diagrams: 12/06/20 10:36 12/06/20 10:36 Lab Results 12/06/20 12/06/20 12/06/20 Range/Units 10:36 10:36 10:36 WBC 8.40 (4.8-10.8) K/uL RBC 4.60 L (4.7-6.1) M/uL Hgb 14.2 (14.0-18.0) g/dL Hct 40.8 L (42-52) % MCV 88.7 (80-100) fL MCH 30.9 (25-34) pg MCHC 34.8 (32-36) g/dL RDW Std Deviation 44.9 (36.4-46.3) fL RDW Coeff of Valent[place] 13.7 (11.5-14.5) % Plt Count 143 (130-400) K/uL MPV 10.8 H (7.4-10.4) fL Immature Gran % (Auto) 0.5 % Neut % (Auto) 93.5 % Lymph % (Auto) 4.6 % [place] % (Auto) 0.8 % Eos % (Auto) 0.5 % Baso % (Auto) 0.1 % Neut # (Auto) 7.85 H (1.4-6.5) K/uL Lymph # (Auto) 0.39 L (1.2-3.4) K/uL [place] # (Auto) 0.07 L (0.11-0.59) K/uL Eos # (Auto) 0.04 (0-0.5) K/uL Baso # (Auto) 0.01 (0-0.2) K/uL Immature Gran # (Auto) 0.04 H (0.00-0.02) K/uL PT 10.7 (9.0-12.0) Seconds INR 1.1 (0.9-1.1) APTT 22.8 (21.0-31.0) Seconds PTT Ratio 0.9 Sodium 140 (136-145) mmol/L Potassium 3.4 L (3.5-5.1) mmol/L Chloride 110 H (98-107) mmol/L Carbon Dioxide 23 (21-32) mmol/L Anion Gap 7.0 (3-11) BUN 21 H (7-18) mg/dl Creatinine 0.92 (0.6-1.4) mg/dl Est Cr Clr Drug Dosing 72.4 ml/min Est GFR ( Amer) 92.7 ml/min Est GFR (Non-Af Amer) 79.9 ml/min BUN/Creatinine Ratio 22.7 H (10-20) Glucose 79 (70-99) mg/dl Lactate (0.4-2.0) mmol/L Calcium 8.6 (8.5-10.1) mg/dl Magnesium 1.7 L (1.8-2.4) mg/dl Total Bilirubin 1.8 H (0.2-1) mg/dl AST 11 L (15-37) U/L ALT 18 (12-78) U/L Alkaline Phosphatase 81 (45-117) U/L Total Protein 6.2 L (6.4-8.2) gm/dl Albumin 3.5 (3.4-5.0) gm/dl Globulin 2.7 (2.5-4.0) gm/dl Albumin/Globulin Ratio 1.3 (0.9-2) Urine Color Urine Appearance (Clear) Urine pH (4.5-7.5) Ur Specific [place] (1.000-1.030) Urine Protein (Negative) Urine Glucose (UA) (Negative) Urine Ketones (Negative) Urine Blood (Negative) Urine Nitrite (Negative) Urine Bilirubin (Negative) Urine Urobilinogen (Negative) Ur Leukocyte Esterase (Negative) COVID-19 Eval Order SARS-CoV-2 (PCR) (Negative) 12/06/20 12/06/20 12/06/20 Range/Units 10:36 10:46 10:54 WBC (4.8-10.8) K/uL RBC (4.7-6.1) M/uL Hgb (14.0-18.0) g/dL Hct (42-52) % MCV (80-100) fL MCH (25-34) pg MCHC (32-36) g/dL RDW Std Deviation (36.4-46.3) fL RDW Coeff of Valentino (11.5-14.5) % Plt Count (130-400) K/uL MPV (7.4-10.4) fL Immature Gran % (Auto) % Neut % (Auto) % Lymph % (Auto) % [place] % (Auto) % Eos % (Auto) % Baso % (Auto) % Neut # (Auto) (1.4-6.5) K/uL Lymph # (Auto) (1.2-3.4) K/uL [place] # (Auto) (0.11-0.59) K/uL Eos # (Auto) (0-0.5) K/uL Baso # (Auto) (0-0.2) K/uL Immature Gran # (Auto) (0.00-0.02) K/uL PT (9.0-12.0) Seconds INR (0.9-1.1) APTT (21.0-31.0) Seconds PTT Ratio Sodium (136-145) mmol/L Potassium (3.5-5.1) mmol/L Chloride (98-107) mmol/L Carbon Dioxide (21-32) mmol/L Anion Gap (3-11) BUN (7-18) mg/dl Creatinine (0.6-1.4) mg/dl Est Cr Clr Drug Dosing ml/min Est GFR ( Amer) ml/min Est GFR (Non-Af Amer) ml/min BUN/Creatinine Ratio (10-20) Glucose (70-99) mg/dl Lactate 1.7 (0.4-2.0) mmol/L Calcium (8.5-10.1) mg/dl Magnesium (1.8-2.4) mg/dl Total Bilirubin (0.2-1) mg/dl AST (15-37) U/L ALT (12-78) U/L Alkaline Phosphatase (45-117) U/L Total Protein (6.4-8.2) gm/dl Albumin (3.4-5.0) gm/dl Globulin (2.5-4.0) gm/dl Albumin/Globulin Ratio (0.9-2) Urine Color Yellow Urine Appearance Clear (Clear) Urine pH 5.0 (4.5-7.5) Ur Specific [place] 1.012 (1.000-1.030) Urine Protein Negative (Negative) Urine Glucose (UA) Negative (Negative) Urine Ketones Negative (Negative) Urine Blood Negative (Negative) Urine Nitrite Negative (Negative) Urine Bilirubin Negative (Negative) Urine Urobilinogen Negative (Negative) Ur Leukocyte Esterase Negative (Negative) COVID-19 Eval Order Covid19 at [facility] SARS-CoV-2 (PCR) (Negative) 12/06/20 Range/Units 10:54 WBC (4.8-10.8) K/uL RBC (4.7-6.1) M/uL Hgb (14.0-18.0) g/dL Hct (42-52) % MCV (80-100) fL MCH (25-34) pg MCHC (32-36) g/dL RDW Std Deviation (36.4-46.3) fL RDW Coeff of Valentino (11.5-14.5) % Plt Count (130-400) K/uL MPV (7.4-10.4) fL Immature Gran % (Auto) % Neut % (Auto) % Lymph % (Auto) % [place] % (Auto) % Eos % (Auto) % Baso % (Auto) % Neut # (Auto) (1.4-6.5) K/uL Lymph # (Auto) (1.2-3.4) K/uL [place] # (Auto) (0.11-0.59) K/uL Eos # (Auto) (0-0.5) K/uL Baso # (Auto) (0-0.2) K/uL Immature Gran # (Auto) (0.00-0.02) K/uL PT (9.0-12.0) Seconds INR (0.9-1.1) APTT (21.0-31.0) Seconds PTT Ratio Sodium (136-145) mmol/L Potassium (3.5-5.1) mmol/L Chloride (98-107) mmol/L Carbon Dioxide (21-32) mmol/L Anion Gap (3-11) BUN (7-18) mg/dl Creatinine (0.6-1.4) mg/dl Est Cr Clr Drug Dosing ml/min Est GFR ( Amer) ml/min Est GFR (Non-Af Amer) ml/min BUN/Creatinine Ratio (10-20) Glucose (70-99) mg/dl Lactate (0.4-2.0) mmol/L Calcium (8.5-10.1) mg/dl Magnesium (1.8-2.4) mg/dl Total Bilirubin (0.2-1) mg/dl AST (15-37) U/L ALT (12-78) U/L Alkaline Phosphatase (45-117) U/L Total Protein (6.4-8.2) gm/dl Albumin (3.4-5.0) gm/dl Globulin (2.5-4.0) gm/dl Albumin/Globulin Ratio (0.9-2) Urine Color Urine Appearance (Clear) Urine pH (4.5-7.5) Ur Specific [place] (1.000-1.030) Urine Protein (Negative) Urine Glucose (UA) (Negative) Urine Ketones (Negative) Urine Blood (Negative) Urine Nitrite (Negative) Urine Bilirubin (Negative) Urine Urobilinogen (Negative) Ur Leukocyte Esterase (Negative) COVID-19 Eval Order SARS-CoV-2 (PCR) NEGATIVE (Negative) Administered Medications Discontinued Medications Piperacillin Sod/Tazobactam Sod (Zosyn) 4.5 gm in 120 mls @ 240 mls/hr IV NOW ONE Stop: 12/06/20 10:48 Last Infusion: 12/06/20 11:28 Dose: 0 mls/hr Documented by: [id number] Admin: 12/06/20 10:48 Dose: 240 mls/hr Documented by: [id number] Sodium Chloride (Nss 1000ml) 1,000 mls @ 999 mls/hr IV .Q1H1M ONE Stop: 12/06/20 11:19 Last Infusion: 12/06/20 11:48 Dose: 0 mls/hr Documented by: [id number] Admin: 12/06/20 10:48 Dose: 999 mls/hr Documented by: [id number] Acetaminophen (Ofirmev) 1,000 mg in 100 mls @ 400 mls/hr IV NOW STA Stop: 12/06/20 10:34 Last Infusion: 12/06/20 11:08 Dose: 0 mls/hr Documented by: [id number] Admin: 12/06/20 10:48 Dose: 400 mls/hr Documented by: [id number] Magnesium Sulfate/Dextrose (Magnesium Sulfate / D5w) 1 gm in 100 mls @ 100 mls/hr IV NOW STA Stop: 12/06/20 12:17 Last Infusion: 12/06/20 13:03 Dose: 0 mls/hr Documented by: [id number] Admin: 12/06/20 12:03 Dose: 100 mls/hr Documented by: [id number] Sodium Chloride (Nss 1000ml) 500 mls @ 999 mls/hr IV .Q31M ONE Stop: 12/06/20 12:56 Last Infusion: 12/06/20 13:42 Dose: 0 mls/hr Documented by: [id number] Admin: 12/06/20 13:12 Dose: 999 mls/hr Documented by: [id number] Ioversol (Optiray 320 100ml) 87 ml IV ONCE ONE Stop: 12/06/20 11:43 Last Admin: 12/06/20 11:42 Dose: 87 ml Documented by: [id number] Ondansetron HCl (Ondansetron Inj 2 Mg/Ml 2 Ml Vial) 4 mg IV NOW STA Stop: 12/06/20 10:20 Last Admin: 12/06/20 13:52 Dose: 4 mg Documented by: [id number] Ondansetron HCl (Ondansetron Inj 2 Mg/Ml 2 Ml Vial) Confirm Administered Dose 4 mg .ROUTE .STK-MED ONE Stop: 12/06/20 13:49 Last Admin: 12/06/20 13:52 Dose: Not Given Documented by: [id number] Imaging Data Radiologist's Impression: Abdomen/Pelvis CT 12/06/20 10:[address] WITH IV CONTRAST CT DOSE: 695.77 mGy.cm HISTORY: Acute left-sided abdominal pain with fever left pain, fever TECHNIQUE: Multiaxial CT images of the abdomen and pelvis were performed following the IV administration of 87 cc of Optiray, A dose lowering technique was utilized adhering to the principles of ALARA. COMPARISON STUDY: CT abdomen and pelvis 10/31/2018, CT abdomen pelvis 02/03/2011. FINDINGS: Prior median sternotomy. Coronary artery calcifications. Trace right pleural effusion. Subsegmental bibasilar atelectasis/scarring with mild bronchiectasis. Subsegmental tree-in-bud nodules of the basal right lower lobe suggest infectious or inflammatory bronchiolitis. There is no pneumatosis or pneumoperitoneum. The spleen, mildly atrophic pancreas and adrenal glands are unremarkable. Mild gallbladder distention with associated gallbladder wall thickening and trace pericholecystic edema. Mild intrahepatic biliary ductal prominence. The common bile duct measures up to 8 mm. There are a few scattered hepatic hypodensities measuring up to 1.7 cm within the left hepatic lobe suggestive of probable cysts. A right-sided renal sinus cysts redemonstrated measuring 5.2 cm. There may be a few punctate calculi of the left kidney. No ureteral calculi or hydronephrosis. Brachytherapy seeds of the prostate. Urinary bladder wall thickening and p erivesicular stranding with partial distention. Extensive atherosclerotic plaque the abdominal aorta. No aneurysm. Small duodenal diverticulum. Colonic diverticulosis without acute diverticulitis. The appendix is not visualized. No CT evidence of acute appendicitis. Tiny fat filled periumbilical hernia, diastases of 1.5 cm. Degenerative changes of the spine, pelvis and hips. There is a 9 mm sclerotic lesion of the left sacrum on image 325, previously 5 mm. 5 mm sclerotic lesion of the left iliac bone on image 309 previously measured 4 mm. Unchanged subcentimeter sclerotic focus of the left sacrum on image 295. Unchanged subcentimeter sclerotic focus involves the L2 vertebral body additional scattered punctate sclerotic foci of the pelvis are unchanged. 5 mm sclerotic lesion about the lateral aspect of the right seventh rib on image 4, previously 4 mm. IMPRESSION: 1. Gallbladder distention with associated wall thickening and trace pericholecystic edema. Correlate with clinical presentation to exclude acute cholecystitis. 2. Prostamegaly with brachy therapy seeds. Urinary bladder wall thickening may be secondary to chronic bladder outlet obstruction or cystitis. Correlate with u rinalysis. 3. Colonic diverticulosis without acute diverticulitis. 4. No bowel obstruction or bowel wall thickening. 5. Several subcentimeter sclerotic foci measuring up to 9 mm within the left sacrum are all new from 2010 and several of which have mildly increased in size from 2019, suspicious for sclerotic metastasis. ACT 112: Negative or not required by law. The above report was generated using voice recognition software. It may contain grammatical, syntax or spelling errors. Electronically signed by: Emile Dennis M.D. 12/06/2020 12:15 PM Chest X-Ray 12/06/20 10:19 XR chest 1V portable HISTORY: 79 years-old Male SEPSIS acute sepsis COMPARISON: Chest radiograph 07/24/2019 TECHNIQUE: Portable AP view of the chest FINDINGS: Cardiomediastinal and hilar silhouettes are unchanged. Prior median sternotomy. Surgical clips project over the mediastinum. There is no pneumothorax, pleural effusion, airspace consolidation or overt pulmonary edema. Degenerative changes of the shoulders and spine. Surgical anchors of the right humeral head. IMPRESSION: No acute process. ACT 112: Negative or not required by law. The above report was generated using voice recognition software. It may contain grammatical, syntax or spelling errors. Electronically signed by: Emile Dennis M.D. 12/06/2020 10:58 AM Discharge Plan Visit Data Chief Complaint: Abdominal Pain ED Provider: Vazquez Holbrook Discharge Problem: Diffuse abdominal pain, Acute cholecystitis, Vomiting, Tachycardia, Fever Patient Disposition: Admitted As Inpatient Condition: Fair Forms Stand Alone Forms: [facility] Prescriptions Prescriptions: No Action levothyroxine 137 mcg Tablet 137 mcg PO 4XWK RF: 0 aspirin [Aspir-Low] 81 mg Tablet,Delayed Release (Dr/Ec) 81 mg PO BID RF: 0 tamsulosin [Flomax] 0.4 mg capsule 0.4 mg PO HS RF: 0 triamcinolone acetonide 55 mcg Aerosol,[place] 1 spray INTRANASAL DAILY RF: 0 levothyroxine [Synthroid] 150 mcg tablet 150 mcg PO 3XWK RF: 0 sertraline 50 mg Tablet 50 mg PO DAILY RF: 0 potassium chloride [Klor-Con M10] 10 mEq tablet,ER particles/crystals 20 meq PO QAM RF: 0 guaifenesin [Mucinex] 600 mg Tablet Extended Release 12hr 600 mg PO Q12H PRN (Reason: Congestion) RF: 0 ipratropium-albuterol 0.5 mg-3 mg(2.5 mg base)/3 mL solution for nebulization 3 ml INHALATION Q4H PRN (Reason: Shortness Of Breath) RF: 0 albuterol sulfate 90 mcg/actuation Hfa Aerosol Inhaler 2 puff INHALATION Q6H PRN (Reason: Shortness Of Breath) RF: 0 acetaminophen 500 mg Capsule 500 mg PO UD PRN (Reason: Pain) RF: 0 fluticasone propion-salmeterol [Wixela Inhub] 250-50 mcg/dose Blister With Device 1 inh INHALATION BID RF: 0 meclizine 25 mg Tablet 25 mg PO Q6 PRN (Reason: Dizziness) RF: 0 Probiotic 1 cap PO BID RF: 0 verapamil 180 mg tablet extended release 180 mg PO DAILY RF: 0 famotidine 20 mg tablet 20 mg PO DAILY RF: 0 hydrochlorothiazide 12.5 mg capsule 12.5 mg PO DAILY RF: 0 losartan 100 mg tablet 100 mg PO DAILY RF: 0 atorvastatin 80 mg Tablet 80 mg PO DAILY RF: 0 fluticasone propion-salmeterol [Wixela Inhub] 250-50 mcg/dose Blister With Device 1 inh INHALATION BID RF: 0 cholecalciferol (vitamin D3) [Vitamin D3] 25 mcg (1,000 unit) Tablet 25 mcg PO DAILY RF: 0 Referrals Referrals: Donn Clarke MD [Primary Care Provider] - Discharge Problem: Vomiting Qualifiers: Vomiting type: unspecified Vomiting Intractability: non-intractable Nausea presence: with nausea Qualified Code(s): R11.2 - Nausea with vomiting, unspecified Fever Qualifiers: Fever type: unspecified Qualified Code(s): R50.9 - Fever, unspecified
[2020-12-06 10:58] LABS: Basophils # (auto) 0.01 K/uL (0-0.2); Basophils % (auto) 0.1 %; Eosinophils # (auto) 0.04 K/uL (0-0.5); Eosinophils % (auto) 0.5 %; Hematocrit (blood only) 40.8 % (42-52); Hemoglobin 14.2 g/dL (14.0-18.0); Immature Granulocytes # (auto) 0.04 K/uL (0.00-0.02); Immature Granulocytes % (auto) 0.5 %; Lymphocytes # (auto) 0.39 K/uL (1.2-3.4); Lymphocytes % (auto) 4.6 %; Mean Corpuscular Hemoglobin 30.9 pg (25-34); Mean Corpuscular Hgb Conc 34.8 g/dL (32-36); Mean Corpuscular Volume 88.7 fL (80-100); Mean Platelet Volume 10.8 fL (7.4-10.4); Monocytes # (auto) 0.07 K/uL (0.11-0.59); Monocytes % (auto) 0.8 %; Neutrophils # (auto) 7.85 K/uL (1.4-6.5); Neutrophils % (auto) 93.5 %; Platelet Count 143 K/uL (130-400); RDW Coefficient of Variation 13.7 % (11.5-14.5); RDW Standard Deviation 44.9 fL (36.4-46.3)
--- NOTE | 2020-12-06 11:00 | XRay Report ---
XR chest 1V portable HISTORY: 79 years-old Male SEPSIS acute sepsis COMPARISON: Chest radiograph 07/24/2019 TECHNIQUE: Portable AP view of the chest FINDINGS: Cardiomediastinal and hilar silhouettes are unchanged. Prior median sternotomy. Surgical clips projec t over the mediastinum. There is no pneumothorax, pleural effusion, airspace consolidation or overt p ulmonary edema. Degenerative changes of the shoulders and spine. Surgical anchors of the right yasmin l head. IMPRESSION: No acute process. ACT 112: Negative or not required by law. The above report was generated using voice recognition software. It may contain grammatical, syntax o r spelling errors. Electronically signed by: Emile Dennis M.D. 12/06/2020 10:58 AM
[2020-12-06 11:09] LABS: INR 1.1 (0.9-1.1); Partial Thromboplastin Ratio 0.9; Partial Thromboplastin Time 22.8 Seconds (21.0-31.0); Prothrombin Time 10.7 Seconds (9.0-12.0)
[2020-12-06 11:16] LABS: Albumin Level 3.5 gm/dl (3.4-5.0); BUN Creatinine Ratio 22.7 (10-20); Calcium 8.6 mg/dl (8.5-10.1); Creatinine Clr Calc Pharmacy 72.4 ml/min; Est GFR (African American) 92.7 ml/min; Est GFR (Non-African American) 79.9 ml/min; Magnesium 1.7 mg/dl (1.8-2.4); Potassium 3.4 mmol/L (3.5-5.1)
[2020-12-06] MEDS ORDERED: MAGNESIUM SULFATE / D5W 1 GM/100 ML BAG IV STA (11:18)
[2020-12-06 11:19] LABS: Albumin Globulin Ratio 1.3 (0.9-2); Bilirubin,Total 1.8 mg/dl (0.2-1); Globulin 2.7 gm/dl (2.5-4.0); Total Protein 6.2 gm/dl (6.4-8.2)
[2020-12-06 11:20] LABS: Appearance Urine Clear (Clear); Bilirubin Urine Negative (Negative); Blood Urine Negative (Negative); Color Urine Yellow; Glucose Urine UA Negative (Negative); Ketones Urine Negative (Negative); Leukocyte Esterase Urine Negative (Negative); Nitrite Urine Negative (Negative); Protein Urine Negative (Negative); Specific Gravity Urine 1.012 (1.000-1.030); Urobilinogen Urine Negative (Negative)
[2020-12-06] MEDS ORDERED: OPTIRAY 320 100ml IV ONE (11:42)
--- NOTE | 2020-12-06 12:16 | CT Scan Report ---
ABDOMEN AND PELVIS CT WITH IV CONTRAST CT DOSE: 695.77 mGy.cm HISTORY: Acute left-sided abdominal pain with fever left pain, fever TECHNIQUE: Multiaxial CT images of the abdomen and pelvis were performed following the IV administrat ion of 87 cc of Optiray, A dose lowering technique was utilized adhering to the principles of ALARA. COMPARISON STUDY: CT abdomen and pelvis 10/31/2018, CT abdomen pelvis 02/03/2011. FINDINGS: Prior median sternotomy. Coronary artery calcifications. Trace right pleural effusion. Subsegmental b ibasilar atelectasis/scarring with mild bronchiectasis. Subsegmental tree-in-bud nodules of the basal right lower lobe suggest infectious or inflammatory bronchiolitis. There is no pneumatosis or pneumo peritoneum. The spleen, mildly atrophic pancreas and adrenal glands are unremarkable. Mild gallbladde r distention with associated gallbladder wall thickening and trace pericholecystic edema. Mild intrah epatic biliary ductal prominence. The common bile duct measures up to 8 mm. There are a few scattered hepatic hypodensities measuring up to 1.7 cm within the left hepatic lobe suggestive of probable cys ts. A right-sided renal sinus cysts redemonstrated measuring 5.2 cm. There may be a few punctate calculi of the left kidney. No ureteral calculi or hydronephrosis. Brachytherapy seeds of the prostate. Urina ry bladder wall thickening and perivesicular stranding with partial distention. Extensive atheroscler otic plaque the abdominal aorta. No aneurysm. Small duodenal diverticulum. Colonic diverticulosis without acute diverticulitis. The appendix is not visualized. No CT evidence of acute appendicitis. Tiny fat filled periumbilical hernia, diastases of 1.5 cm. Degenerative changes of the spine, pelvis and hips. There is a 9 mm sclerotic lesion of the left sacrum on image 325, previously 5 mm. 5 mm sclerotic lesion of the left iliac bone on image 309 previously measured 4 mm. Unchanged subcentimeter sclerotic focus of the left sacrum on image 295. Un changed subcentimeter sclerotic focus involves the L2 vertebral body additional scattered punctate sc lerotic foci of the pelvis are unchanged. 5 mm sclerotic lesion about the lateral aspect of the right seventh rib on image 4, previously 4 mm. IMPRESSION: 1. Gallbladder distention with associated wall thickening and trace pericholecystic edema. Correlate with clinical presentation to exclude acute cholecystitis. 2. Prostamegaly with brachy therapy seeds. Urinary bladder wall thickening may be secondary to chroni c bladder outlet obstruction or cystitis. Correlate with urinalysis. 3. Colonic diverticulosis without acute diverticulitis. 4. No bowel obstruction or bowel wall thickening. 5. Several subcentimeter sclerotic foci measuring up to 9 mm within the left sacrum are all new from 2011 and several of which have mildly increased in size from 2019, suspicious for sclerotic metastasi s. ACT 112: Negative or not required by law. The above report was generated using voice recognition software. It may contain grammatical, syntax o r spelling errors. Electronically signed by: Emile Dennis M.D. 12/06/2020 12:15 PM
[2020-12-06] MEDS ORDERED: SODIUM CHLORIDE 0.9% 1000ML 500 ML IV ONE (12:26)
--- NOTE | 2020-12-06 13:33 | History & Physical Report ---
Date of Service December 06, 2020 Assessment & Plan (1) History of pulmonary embolism: will plan on DVT prophylaxis with lovenox/ SCD's (2) Prostate cancer: s/p seed placement. CT scan concerning for development of sclerotic metastasis - discussed with pt and advised f/u with oncology (3) Acute cholecystitis: Acute acalculous cholecystitis and umbilical hernia. Discussed with pt that most likely source of symptoms is his gallbladder. We could proceed with an US or HIDA scan to confirm. Another option would be to proceed to surgery given his clinical scenario is very c/w gallbladder disease. Laparoscopic cholecystectomy discussed with risks of bleeding, infection, conversion to open, bile leak, intolerance to foods, diarrhea, injury to main bile duct. We discussed primary repair of umbilical hernia at the same time - understands recurrence rate of at least 30% in this setting as we should not use mesh with active infection. Option of staying away from the hernia with the trocar also discussed but he prefers to try and repair at same time. Consent signed. For OR today. Medicine consult placed for his medical issues. Present on Admission?: Yes History of Present Illness Chief Complaint: abdominal pain Primary Care Provider: Donn Clarke MD 79 yr old man with PMHx notable for HTN, high cholesterol, history of CAD, COPD/ asthma presents to ER for generalized abdominal pain. Started 4 days ago after eating a hamburger from [employer]. Pain was diffuse, throughout abdomen, crampy. Got better but then this morning awoke with chills, nausea/ vomiting of yellow-green bile, recurrence of the pain. Mainly in central to upper abdomen. No similar episodes before. [place] very ill with the shakes, pain. Came to ER and CT scan concerning for acute cholecystitis. No family history of gallbladder d isease (although had hers removed also). In ER, noted to be febrile and tachycardic. Underwent CABG last year. Cardiac status is stable - sees JULIAN Robles. Uses inhalers for asthma/ COPD but has never needed home oxygen. Allergies Allergy/AdvReac Type Severity Reaction Status Date / Time codeine AdvReac Mild N/V Verified 12/06/20 13:00 Home Medications Medication Instructions Recorded Confirmed Type aspirin [Aspir-Low] 81 mg PO BID 10/31/18 12/06/20 History guaifenesin [Mucinex] 600 mg PO Q12H PRN 10/31/18 12/06/20 History levothyroxine 137 mcg PO 4XWK 10/31/18 12/06/20 History levothyroxine [Synthroid] 150 mcg PO 3XWK 10/31/18 12/06/20 History potassium chloride [Klor-Con M10] 20 meq PO QAM 10/31/18 12/06/20 History sertraline 50 mg PO DAILY 10/31/18 12/06/20 History tamsulosin [Flomax] 0.4 mg PO HS 10/31/18 12/06/20 History triamcinolone acetonide 1 spray INTRANASAL DAILY 10/31/18 12/06/20 History acetaminophen 500 mg PO UD PRN 07/12/19 12/06/20 History albuterol sulfate 2 puff INHALATION Q6H PRN 07/12/19 12/06/20 History fluticasone propion-salmeterol 1 inh INHALATION BID 07/12/19 12/06/20 History [Wixela Inhub] ipratropium-albuterol 3 ml INHALATION Q4H PRN 07/12/19 12/06/20 History Probiotic 1 cap PO BID 07/24/19 12/06/20 History meclizine 25 mg PO Q6 PRN 07/24/19 12/06/20 History atorvastatin 80 mg PO DAILY 12/06/20 12/06/20 History famotidine 20 mg PO DAILY 12/06/20 12/06/20 History hydrochlorothiazide 12.5 mg PO DAILY 12/06/20 12/06/20 History losartan 100 mg PO DAILY 12/06/20 12/06/20 History verapamil 180 mg PO DAILY 12/06/20 12/06/20 History Past Med/Surg History Medical History Asthma BPH (benign prostatic hyperplasia) Clostridium difficile carrier COPD (chronic obstructive pulmonary disease) Coronary atherosclerosis of [place] coronary artery 11/2018 - MARY to prox L cx, MARY x 2 to mid LAD DVT prophylaxis History of Graves' disease History of malignant melanoma of skin History of pulmonary embolism 2010 - completed Coumadin therapy Hypertension Hypothyroidism Prostate cancer Status post seed implant Skin cancer Surgical History H/O rotator cuff surgery History of appendectomy History of basal cell carcinoma (BCC) excision History of colonoscopy with polypectomy Last 11/03/2016 recommend repeat in 3 years History of cystoscopy History of eye surgery History of hernia repair History of thyroidectomy, total History of vasectomy Status post double vessel coronary artery bypass Status post operation on nasal sinus "09/2002" Family History Father Cancer Prostate and bladder Mother Stroke Breast cancer Social History Smoking Status: Former smoker Age Quit Using Tobacco: 27; Number of Years Since Quit: 50; Second Hand Exposure: No; Hx Alcohol Use: Yes Alcohol type: beer Alcohol Intake Frequency Comment: 1-2 drinks per day Hx Substance Use: No Preferred Language: [place] Communication Ability: Effective [employer] Required: No Beliefs That Will Affect Care: None marital status: Current Living Situation: Spouse current occupation: Retired Feels Safe at Home: Yes Assistive Devices: None Review of Systems Review of Systems: All systems reviewed & are unremarkable except as noted in HPI & below Physical Exam Constitutional: WD/WN, vitals as above Eyes: PERRL, conjunctivae normal, anicteric sclerae Neck: normal visual inspection and trachea midline Respiratory: normal respiratory effort, lungs clear to auscultation Cardiovascular: Rate/Rhythm: regular rate and regular rhythm Gastrointestinal (Abdomen): Inspection/Auscultation: abdomen normal to inspection and normal bowel sounds Percussion/Palpation: + abdomen tender (in RUQ with voluntary guarding), abdomen soft and + hernia (umbilical hernia, tender, not reducible) Results & Data Results & Data ([facility]) Vital Signs (Past 12 Hours) Vital Signs Temp Pulse Resp BP Pulse Ox 12/06/20 12:05 37.2 C 12/06/20 12:00 101 H 20 135/66 93 12/06/20 11:32 38.1 C H 12/06/20 11:31 103 H 23 136/71 94 12/06/20 11:30 38.1 C H 104 H 26 H 136/71 94 12/06/20 11:04 93 12/06/20 11:00 105 H 20 138/58 L 92 12/06/20 10:01 37.3 C 108 H 23 174/81 H 95 12/06/20 09:59 105 H 22 195/70 H 92 Laboratory Results Abnormal lab results 12/06/20 12/06/20 Range/Units 10:36 10:36 RBC 4.60 L (4.7-6.1) M/uL Hct 40.8 L (42-52) % MPV 10.8 H (7.4-10.4) fL Neut # (Auto) 7.85 H (1.4-6.5) K/uL Lymph # (Auto) 0.39 L (1.2-3.4) K/uL [place] # (Auto) 0.07 L (0.11-0.59) K/uL Immature Gran # (Auto) 0.04 H (0.00-0.02) K/uL Potassium 3.4 L (3.5-5.1) mmol/L Chloride 110 H (98-107) mmol/L BUN 21 H (7-18) mg/dl BUN/Creatinine Ratio 22.7 H (10-20) Magnesium 1.7 L (1.8-2.4) mg/dl Total Bilirubin 1.8 H (0.2-1) mg/dl AST 11 L (15-37) U/L Total Protein 6.2 L (6.4-8.2) gm/dl Diagnostic Findings CT scan personally reviewed: FINDINGS: Prior median sternotomy. Coronary artery calcifications. Trace right pleural effusion. Subsegmental bibasilar atelectasis/scarring with mild bronchiectasis. Subsegmental tree-in-bud nodules of the basal right lower lobe suggest infectious or inflammatory bronchiolitis. There is no pneumatosis or pneumoperitoneum. The spleen, mildly atrophic pancreas and adrenal glands are unremarkable. Mild gallbladder distention with associated gallbladder wall thickening and trace pericholecystic edema. Mild intrahepatic biliary ductal prominence. The common bile duct measures up to 8 mm. There are a few scattered hepatic hypodensities measuring up to 1.7 cm within the left hepatic lobe suggestive of probable cysts. A right-sided renal sinus cysts redemonstrated measuring 5.2 cm. There may be a few punctate calculi of the left kidney. No ureteral calculi or hydronephrosis. Brachytherapy seeds of the prostate. Urinary bladder wall thickening and perivesicular stranding with partial distention. Extensive atherosclerotic plaque the abdominal aorta. No aneurysm. Small duodenal diverticulum. Colonic diverticulosis without acute diverticulitis. The appendix is not visualized. No CT evidence of acute appendicitis. Tiny fat filled periumbilical hernia, diastases of 1.5 cm. Dege nerative changes of the spine, pelvis and hips. There is a 9 mm sclerotic lesion of the left sacrum on image 325, previously 5 mm. 5 mm sclerotic lesion of the left iliac bone on image 309 previously measured 4 mm. Unchanged subcentimeter sclerotic focus of the left sacrum on image 295. Unchanged subcentimeter sclerotic focus involves the L2 vertebral body additional scattered punctate sclerotic foci of the pelvis are unchanged. 5 mm sclerotic lesion about the lateral aspect of the right seventh rib on image 4, previously 4 mm. IMPRESSION: 1. Gallbladder distention with associated wall thickening and trace pericholecystic edema. Correlate with clinical presentation to exclude acute cholecystitis. 2. Prostamegaly with brachy therapy seeds. Urinary bladder wall thickening may be secondary to chronic bladder outlet obstruction or cystitis. Correlate with urinalysis. 3. Colonic diverticulosis without acute diverticulitis. 4. No bowel obstruction or bowel wall thickening. 5. Several subcentimeter sclerotic foci measuring up to 9 mm within the left sacrum are all new from 2011 and several of which have mildly increased in size from 2019, suspicious for sclerotic metastasis.
[2020-12-06] MEDS ORDERED: ONDANSETRON INJ 2 MG/ML 2 ML VIAL ONE (13:48)
--- NOTE | 2020-12-06 14:19 | Hospitalist Consultation ---
Date of Consultation December 06, 2020 Assessment & Plan (1) Acute cholecystitis: (2) Umbilical hernia: (3) HTN (hypertension): (4) Coronary atherosclerosis of [place] coronary artery: (5) Asthma: (6) Status post double vessel coronary artery bypass: Patient with N/V, abdominal pain, and acute cholecystitis planned for laparoscopic cholecystectomy and umbilical hernia repair. The patient has cardiac history including hx of prior angioplasty with drug eluting stent placement in November 2018, and then ultimately CABG x 2 in 2018. The patient has been stable from a cardiac standpoint since that time. Cardiac outpatient notes placed in chart along with most recent EKG outpatient. He does also have asthma history, and he had increased symptoms during his Cardiology visit in August 2019. He was given a course or prednisone at that time. Since then, his asthma symptoms have been stable on home regimen. He continues Wixela inhaler BID. He also has Duonebs at home which he has been using three times daily during allergy season. This helps. No current SOB. Patient has history of complications including postoperative anemia, AFib, urinary retention, and post-op delirium following CABG, so he will require close cardiac monitoring after surgery. Home medications reviewed and verified. Fluids and antibiotics ordered by surgical team. EKG appears stable from most recent outpatient EKG. Will check stat troponin prior to surgery as well. Continue outpatient medications. Patient noted to have detectable troponin. In July, troponin was elevated, and prior to CABG was detectable. Will update Echo and request Cardiology consultation for cardiac clearance. Will transfer patient to Med/Surg with Tele and onto primary service for further management. Trend Troponin. (7) Hypokalemia: IV KCL 20 meq x 1 dose Repeat in AM Continue home potassium PO when able (8) Prostate cancer: (9) BPH (benign prostatic hyperplasia): UA negative in ED. Continue home dosing of Flomax. Patient noted to have possible bony metastases on CT of the abd/pelvis. This was discussed with the patient. He will require outpatient follow up with PCP and Hematology/Oncology for further workup and management. (10) Hypothyroidism: Continue home dosing of levothyroxine (11) History of pulmonary embolism: (12) DVT prophylaxis: Per surgical team Thank you for this consultation. We will follow the patient with you during their hospital stay. You can reach a member of the [facility] Hospitalist Team 07/02 via pager @ or via [employer] Supervising Physician Co-Signing Physician Notes Care coordinated with Jaelyn Hightower PA-C Agree with above note. Patient seen and examined. Please refer to her notes for full details. Vital signs reviewed. Physical exam: General exam: Alert and oriented. Not in acute distress. CVS: S1 and S2 heard, regular rate and rhythm, no murmurs. RS: Clear to auscultation, no wheezing or crackles. ABD: Soft, bowel sounds present, nontender, no distention. PUTTIER: Nonfocal. EXT: No edema, no erythema. Labs: Reviewed. Assessment and plan: 79M With hx of cad s/p stent s/p cabg, asthma, hx of prostrate cancer presents with abdominal singer, n/v and chills. temp spike in ER. Patient developed abdominal discomfort last tuesday when he ate hamburger but it subsided and again started to day Am. Denies any chest pain or sob. Says not feeling good. Hemodynamics stable. Acute cholecystitis on zosyn fluids npo surgery on board cardiology consulted for pre op as troponin slightly elevated though in normal range EKG no new changes will trend CE will monitor in med/tele [place] currently stable home inhalers. Hx of cad s/p cabg continue aspirin, statin cardio consult for optimization prior to surgery Other diagnosis and plan of care as per Jaelyn Hightower PA-C. Morales das MD. History of Present Illness Reason for Consultation: Medical management Requesting Physician: Dr. Stacy Heller Attending Physician: Dr. Del Rio History of Present Illness Patient is a 79 yo male who presented to the ED with complaint of abdominal pain, N/V, chills since this morning. He has PMHx including hypothyroidism, hyperlipidemia, CAD, HTN, asthma, BPH, GERD, osteoporosis, CABG x 2, history PE, and history of prostate CA. Upon presentation to the ED, his workup was concerning for acute cholecystitis. He is planned to have cholecystectomy with umbilical hernia repair this afternoon. He was also noted to have mild hypokalemia. UA was negative. Total bilirubin was elevated. Renal function was stable/within norm. WBC count was 8.4. At the time of exam, the patient is slightly uncomfortable with nausea and abdominal pain but improved from this AM. His is with him. Patient has been stable from a cardiac standpoint since his cardiac bypass. He is able to do house work, walk up a flight of stairs, and walk briskly without ALEXANDER or chest pain. He has no current chest pain. He has no symptoms of claudication in his lower extremities such as tightness/pain with exertion. He was also noted on CT of the abdomen/pelvis to have several subcentimeter foci up to 9 mm in the left sacrum that are new from 2011 and several of which have increased since 2019, suspicious for sclerotic mets. The patient had prostate seeds placed years ago, but hasn't had any issues recently. Patient follows with [facility] Cardiology outpatient. Will print most recently outpatient records and place in chart for anaesthesia to review. EKG today reviewed by me and stable from prior. Will add last outpatient EKG to chart as well. Patient has history including: S/p PCI to LAD with 2 stents placed December 06, 2018. S/P CABG x 2 on 2018 complicated by postoperative anemia, AFib, urinary retention, and post-op delirium as noted by outpatient Cardiology. The patient has in the past been beta araceli intolerant as well. Echo 07/14/19 Pre-CABG showed LV 55-59%, mild mitral regurg, and normal wall motion. Echo 07/15/19 post-CABG showed normal LV function, no wall motion abnormalities, and no pericardial effusion. Allergies Allergy/AdvReac Type Severity Reaction Status Date / Time codeine AdvReac Mild N/V Verified 12/06/20 13:00 Home Medications Medication Instructions Recorded Confirmed Type aspirin [Aspir-Low] 81 mg PO BID 10/31/18 12/06/20 History guaifenesin [Mucinex] 600 mg PO Q12H PRN 10/31/18 12/06/20 History levothyroxine 137 mcg PO 4XWK 10/31/18 12/06/20 History levothyroxine [Synthroid] 150 mcg PO 3XWK 10/31/18 12/06/20 History potassium chloride [Klor-Con M10] 20 meq PO QAM 10/31/18 12/06/20 History sertraline 50 mg PO DAILY 10/31/18 12/06/20 History tamsulosin [Flomax] 0.4 mg PO HS 10/31/18 12/06/20 History triamcinolone acetonide 1 spray INTRANASAL DAILY 10/31/18 12/06/20 History acetaminophen 500 mg PO UD PRN 07/12/19 12/06/20 History albuterol sulfate 2 puff INHALATION Q6H PRN 07/12/19 12/06/20 History fluticasone propion-salmeterol 1 inh INHALATION BID 07/12/19 12/06/20 History [Wixela Inhub] ipratropium-albuterol 3 ml INHALATION Q4H PRN 07/12/19 12/06/20 History Probiotic 1 cap PO BID 07/24/19 12/06/20 History meclizine 25 mg PO Q6 PRN 07/24/19 12/06/20 History atorvastatin 80 mg PO DAILY 12/06/20 12/06/20 History cholecalciferol (vitamin D3) 25 mcg PO DAILY 12/06/20 12/06/20 History [Vitamin D3] famotidine 20 mg PO DAILY 12/06/20 12/06/20 History fluticasone propion-salmeterol 1 inh INHALATION BID 12/06/20 12/06/20 History [Wixela Inhub] hydrochlorothiazide 12.5 mg PO DAILY 12/06/20 12/06/20 History losartan 100 mg PO DAILY 12/06/20 12/06/20 History verapamil 180 mg PO DAILY 12/06/20 12/06/20 History Patient History Medical History 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 Asthma BPH (benign prostatic hyperplasia) Clostridium difficile carrier COPD (chronic obstructive pulmonary disease) Coronary atherosclerosis of [place] coronary artery 11/2018 - MARY to prox L cx, MARY x 2 to mid LAD DVT prophylaxis History of Graves' disease History of malignant melanoma of skin History of pulmonary embolism 2010 - completed Coumadin therapy HTN (hypertension) Hypertension Hypothyroidism Prostate cancer Status post seed implant Skin cancer Surgical History H/O rotator cuff surgery History of appendectomy History of basal cell carcinoma (BCC) excision History of colonoscopy with polypectomy Last 11/03/2016 recommend repeat in 3 years History of cystoscopy History of eye surgery History of hernia repair History of thyroidectomy, total History of vasectomy Status post double vessel coronary artery bypass 07/14/2019 Status post operation on nasal sinus "09/2002" Family History Father Cancer Prostate and bladder Mother Stroke Breast cancer Social History Smoking Status: Former smoker Age Quit Using Tobacco: 27; Number of Years Since Quit: 50; Second Hand Exposure: No; Do You Dip or Chew Tobacco: No; Tobacco Cessation Education Requested by Patient: No Hx Alcohol Use: Yes Alcohol type: beer and wine Alcohol Intake Frequency Comment: 1-2 drinks per day Hx Substance Use: No Preferred Language: Bahraini Communication Ability: Effective Upholstery Cutter Required: No Beliefs That Will Affect Care: None marital status: Current Living Situation: Spouse current occupation: Retired Other Information That Helps Us Care for You: No Feels Safe at Home: Yes Safety Concerns: Feels Safe At This Time Assistive Devices: None Review of Systems Review of Systems: All systems reviewed & are unremarkable except as noted in HPI & below Physical Exam Constitutional: well developed; no acute distress and no altered mental status Appears slightly uncomfortable secondary to pain and nausea Eyes: PERRL, conjunctivae normal, anicteric sclerae ENMT: Ears: no hearing impairment Neck: trachea midline, no thyromegaly Respiratory: normal respiratory effort, lungs clear to auscultation Cardiovascular: Rate/Rhythm: regular rhythm and + tachycardic (HR 105 BPM on monitor) Heart Sounds: normal S1 and normal S2; no murmur Extremities: normal capillary refill; no calf tenderness and no edema Gastrointestinal (Abdomen): Inspection/Auscultation: + abdomen distended and normal bowel sounds Percussion/Palpation: abdomen soft Skin: no rashes, warm and dry Neurologic: PERRL, EOMI, accommodation nl, no face palsy, no dysarthria Psychiatric: A+Ox3, euthymic affect Results & Data Results & Data ([facility]) Vital Signs (Past 12 Hours) Vital Signs Temp Pulse Resp BP Pulse Ox 12/06/20 13:53 36.9 C 12/06/20 12:05 37.2 C 12/06/20 12:00 101 H 20 135/66 93 12/06/20 11:32 38.1 C H 12/06/20 11:31 103 H 23 136/71 94 12/06/20 11:30 38.1 C H 104 H 26 H 136/71 94 12/06/20 11:04 93 12/06/20 11:00 105 H 20 138/58 L 92 12/06/20 10:01 37.3 C 108 H 23 174/81 H 95 12/06/20 09:59 105 H 22 195/70 H 92 Laboratory Results Laboratory Results - last 24 hr 12/06/20 12/06/20 12/06/20 10:36 10:36 10:36 WBC 8.40 RBC 4.60 L Hgb 14.2 Hct 40.8 L MCV 88.7 MCH 30.9 MCHC 34.8 RDW Std Deviation 44.9 RDW Coeff of [place] 13.7 Plt Count 143 MPV 10.8 H Immature Gran % (Auto) 0.5 Neut % (Auto) 93.5 Lymph % (Auto) 4.6 [place] % (Auto) 0.8 Eos % (Auto) 0.5 Baso % (Auto) 0.1 Neut # (Auto) 7.85 H Lymph # (Auto) 0.39 L [place] # (Auto) 0.07 L Eos # (Auto) 0.04 Baso # (Auto) 0.01 Immature Gran # (Auto) 0.04 H PT 10.7 INR 1.1 APTT 22.8 PTT Ratio 0.9 Sodium 140 Potassium 3.4 L Chloride 110 H Carbon Dioxide 23 Anion Gap 7.0 BUN 21 H Creatinine 0.92 Est Cr Clr Drug Dosing 72.4 Est GFR ( Amer) 92.7 Est GFR (Non-Af Amer) 79.9 BUN/Creatinine Ratio 22.7 H Glucose 79 Lactate Calcium 8.6 Magnesium 1.7 L Total Bilirubin 1.8 H AST 11 L ALT 18 Alkaline Phosphatase 81 Total Protein 6.2 L Albumin 3.5 Globulin 2.7 Albumin/Globulin Ratio 1.3 Urine Color Urine Appearance Urine pH Ur Specific [place] Urine Protein Urine Glucose (UA) Urine Ketones Urine Blood Urine Nitrite Urine Bilirubin Urine Urobilinogen Ur Leukocyte Esterase COVID-19 Eval Order SARS-CoV-2 (PCR) 12/06/20 12/06/20 12/06/20 10:36 10:46 10:54 WBC RBC Hgb Hct MCV MCH MCHC RDW Std Deviation RDW Coeff of Valentino Plt Count MPV Immature Gran % (Auto) Neut % (Auto) Lymph % (Auto) [place] % (Auto) Eos % (Auto) Baso % (Auto) Neut # (Auto) Lymph # (Auto) [place] # (Auto) Eos # (Auto) Baso # (Auto) Immature Gran # (Auto) PT INR APTT PTT Ratio Sodium Potassium Chloride Carbon Dioxide Anion Gap BUN Creatinine Est Cr Clr Drug Dosing Est GFR ( Amer) Est GFR (Non-Af Amer) BUN/Creatinine Ratio Glucose Lactate 1.7 Calcium Magnesium Total Bilirubin AST ALT Alkaline Phosphatase Total Protein Albumin Globulin Albumin/Globulin Ratio Urine Color Yellow Urine Appearance Clear Urine pH 5.0 Ur Specific [place] 1.012 Urine Protein Negative Urine Glucose (UA) Negative Urine Ketones Negative Urine Blood Negative Urine Nitrite Negative Urine Bilirubin Negative Urine Urobilinogen Negative Ur Leukocyte Esterase Negative COVID-19 Eval Order Covid19 at [facility] SARS-CoV-2 (PCR) 12/06/20 10:54 WBC RBC Hgb Hct MCV MCH MCHC RDW Std Deviation RDW Coeff of Valentino Plt Count MPV Immature Gran % (Auto) Neut % (Auto) Lymph % (Auto) [place] % (Auto) Eos % (Auto) Baso % (Auto) Neut # (Auto) Lymph # (Auto) [place] # (Auto) Eos # (Auto) Baso # (Auto) Immature Gran # (Auto) PT INR APTT PTT Ratio Sodium Potassium Chloride Carbon Dioxide Anion Gap BUN Creatinine Est Cr Clr Drug Dosing Est GFR ( Amer) Est GFR (Non-Af Amer) BUN/Creatinine Ratio Glucose Lactate Calcium Magnesium Total Bilirubin AST ALT Alkaline Phosphatase Total Protein Albumin Globulin Albumin/Globulin Ratio Urine Color Urine Appearance Urine pH Ur Specific [place] Urine Protein Urine Glucose (UA) Urine Ketones Urine Blood Urine Nitrite Urine Bilirubin Urine Urobilinogen Ur Leukocyte Esterase COVID-19 Eval Order SARS-CoV-2 (PCR) NEGATIVE Diagnostic Findings CT ABD/Pelvis: IMPRESSION: 1. Gallbladder distention with associated wall thickening and trace pericholecystic edema. Correlate with clinical presentation to exclude acute cholecystitis. 2. Prostamegaly with brachy therapy seeds. Urinary bladder wall thickening may be secondary to chronic bladder outlet obstruction or cystitis. Correlate with urinalysis. 3. Colonic diverticulosis without acute diverticulitis. 4. No bowel obstruction or bowel wall thickening. 5. Several subcentimeter sclerotic foci measuring up to 9 mm within the left sacrum are all new from 2011 and several of which have mildly increased in size from 2019, suspicious for sclerotic metastasis.
[2020-12-06] MEDS ORDERED: ALBUT/IPRATROP 3MG/0.5MG NEB 3 ML VIAL INH PRN (15:46)
[2020-12-06] MEDS ORDERED: guaiFENesin 600 MG TABCR PO PRN (15:46)
[2020-12-06] MEDS ORDERED: oxyCODONE/ACETAMINOPHEN 5mg/325mg TAB PO PRN (15:46)
[2020-12-06] MEDS ORDERED: ALBUTEROL HFA 8 GM INHALER INH PRN (15:46)
[2020-12-06] MEDS ORDERED: ACETAMINOPHEN 500 MG TAB PO PRN (16:01)
[2020-12-06] MEDS ORDERED: MECLIZINE HCL 25 MG TAB PO PRN (16:02)
[2020-12-06] MEDS: POTASSIUM CHLORIDE / WTR 10 MEQ/100 ML PLCT IV SCH ×2 (17:46→18:42)
[2020-12-06] MEDS: LACTATED RINGER'S 1,000 ML IV SCH (17:46)
[2020-12-06] MEDS: ENOXAPARIN INJ 30 MG/0.3 ML SYR SQ SCH (17:47)
--- NOTE | 2020-12-06 17:55 | Anesthesiology Consultation ---
Date of Service December 06, 2020 Assessment & Plan (1) Encounter for pre-operative examination: Chart Review Chart Review: Acceptable Risk for Surgery and Patient NOT seen in Pre Admission Testing Consults Requested medical Awaiting echocardiagram results and overnight troponin trends from the primary team at this time. History Surgery Operation Date: 12/06/20 15:30 Proposed Procedures p Laparoscopic Cholecystectomy - Stacy Heller MD Height/Weight Height: 5 ft 8 in Weight: 87.6 kg Allergies Allergy/AdvReac Type Severity Reaction Status Date / Time codeine AdvReac Mild N/V Verified 12/06/20 13:00 Medications Home Medications Medication Instructions Recorded Confirmed Last Taken aspirin [Aspir-Low] 81 mg PO BID 10/31/18 12/06/20 12/05/20 guaifenesin [Mucinex] 600 mg PO Q12H PRN 10/31/18 12/06/20 07/12/19 levothyroxine 137 mcg PO 4XWK 10/31/18 12/06/20 07/24/19 levothyroxine [Synthroid] 150 mcg PO 3XWK 10/31/18 12/06/20 07/23/19 potassium chloride [Klor-Con M10] 20 meq PO QAM 10/31/18 12/06/20 07/24/19 sertraline 50 mg PO DAILY 10/31/18 12/06/20 12/05/20 tamsulosin [Flomax] 0.4 mg PO HS 10/31/18 12/06/20 12/05/20 triamcinolone acetonide 1 spray INTRANASAL DAILY 10/31/18 12/06/20 07/24/19 acetaminophen 500 mg PO UD PRN 07/12/19 12/06/20 Unknown albuterol sulfate 2 puff INHALATION Q6H PRN 07/12/19 12/06/20 Unknown fluticasone propion-salmeterol 1 inh INHALATION BID 07/12/19 12/06/20 07/24/19 [Wixela Inhub] ipratropium-albuterol 3 ml INHALATION Q4H PRN 07/12/19 12/06/20 07/12/19 Probiotic 1 cap PO BID 07/24/19 12/06/20 12/05/20 meclizine 25 mg PO Q6 PRN 07/24/19 12/06/20 Unknown atorvastatin 80 mg PO DAILY 12/06/20 12/06/20 12/05/20 cholecalciferol (vitamin D3) 25 mcg PO DAILY 12/06/20 12/06/20 Unknown [Vitamin D3] famotidine 20 mg PO DAILY 12/06/20 12/06/20 12/05/20 fluticasone propion-salmeterol 1 inh INHALATION BID 12/06/20 12/06/20 Unknown [Wixela Inhub] hydrochlorothiazide 12.5 mg PO DAILY 12/06/20 12/06/20 12/05/20 losartan 100 mg PO DAILY 12/06/20 12/06/20 12/05/20 verapamil 180 mg PO DAILY 12/06/20 12/06/20 12/05/20 Active Medications Generic Name Dose Route Start Last Admin Trade Name Freq PRN Reason Stop Dose Admin Enoxaparin Sodium 30 mg 12/06/20 17:00 12/06/20 17:47 Enoxaparin Inj 30 Mg/0.3 Ml Syr SQ 01/05/21 16:59 30 mg Q24H JOHANA Administration Lactated Ringer's 1,000 mls @ 100 mls/hr 12/06/20 15:46 12/06/20 17:46 Lr IV 01/05/21 15:45 100 mls/hr .Q10H JOHANA Administration Piperacillin Sod/Tazobactam 115 mls @ 28.75 mls/hr 12/06/20 17:00 12/06/20 18:21 Sod 3.375 gm/ Dextrose IV 12/16/20 16:59 28.8 mls/hr Q8H JOHANA Administration Protocol Ondansetron HCl 4 mg 12/06/20 15:46 12/06/20 18:39 Ondansetron Inj 2 Mg/Ml 2 Ml Vial IV 01/05/21 15:45 4 mg Q4H PRN Administration Nausea And Vomiting NPO Date Last Intake of Solids: 12/05/20 Time Last Intake of Solids: 18:00 Past Medical History Medical History 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 Asthma BPH (benign prostatic hyperplasia) Clostridium difficile carrier COPD (chronic obstructive pulmonary disease) Coronary atherosclerosis of [place] coronary artery 11/2018 - MARY to prox L cx, MARY x 2 to mid LAD DVT prophylaxis History of Graves' disease History of malignant melanoma of skin History of pulmonary embolism 2011 - completed Coumadin therapy HTN (hypertension) Hypertension Hypothyroidism Prostate cancer Status post seed implant Skin cancer Exercise / Class Metabolic Activity II 4-5 Yardwork/Stairs/Walk up hill Negative for chest pain or shortness of breath. Past Family History Family History Father Cancer Prostate and bladder Mother Stroke Breast cancer Past Surgical History Surgical History H/O rotator cuff surgery History of appendectomy History of basal cell carcinoma (BCC) excision History of colonoscopy with polypectomy Last 11/03/2016 recommend repeat in 3 years History of cystoscopy History of eye surgery History of hernia repair History of thyroidectomy, total History of vasectomy Status post double vessel coronary artery bypass 07/14/2019 Status post operation on nasal sinus "09/2002" Past Anesthesia History No Hx of Anesthesia Complications History of PONV No Hx of PONV Social History Smoking Status: Former smoker tobacco type: cigarettes Hx Alcohol Use: Yes Alcohol type: beer alcohol intake frequency: 0-2 drinks per day Hx Substance Use: No substance use type: does not use Review of Systems N/V this morning Physical Exam Vital Signs Last Vital Signs Temp 36.9 C 12/06/20 18:01 Pulse 78 12/06/20 18:01 Resp 18 12/06/20 18:01 BP 147/73 H 12/06/20 18:01 Pulse Ox 94 12/06/20 18:01 Constitutional not obese ENMT Mouth: no TMJ abnormality and oral opening not small Thyromental Distance: > or= 3.5 Finger Breadths Mallampati Class: II Mouth / Teeth: 1. chipped narrow palate Neck normal visual inspection; neck extension not limited Respiratory normal respiratory effort Cardiovascular Rate/Rhythm: regular rate and regular rhythm Neurologic moves all extremities Psychiatric Orientation: alert and oriented x 3 Testing Laboratory Results 12/06/20 10:36 12/06/20 10:36 PT 10.7 Seconds (9.0-12.0) 12/06/20 10:36 INR 1.1 (0.9-1.1) 12/06/20 10:36 APTT 22.8 Seconds (21.0-31.0) 12/06/20 10:36 Urine Color Yellow 12/06/20 10:46 Urine Appearance Clear (Clear) 12/06/20 10:46 Urine pH 5.0 (4.5-7.5) 12/06/20 10:46 Ur Specific [place] 1.012 (1.000-1.030) 12/06/20 10:46 Urine Protein Negative (Negative) 12/06/20 10:46 Urine Glucose (UA) Negative (Negative) 12/06/20 10:46 Urine Ketones Negative (Negative) 12/06/20 10:46 Urine Nitrite Negative (Negative) 12/06/20 10:46 Ur Leukocyte Esterase Negative (Negative) 12/06/20 10:46 troponin 0.039 COVID negative Electrocardiogram Date: 12/06/20 Findings: + ST @ (105) Possible Inferior infarct , age undetermined, When compared with ECG of 24-JUL-2019 16:52, Borderline criteria for Inferior infarct are now Present, Nonspecific T wave abnormality no longer evident in Lateral leads Chest X-Ray Date: 12/06/20 Findings: + NAD Echocardiogram Date: 07/15/19 LV Function: normal RWMA: + none Exam not sufficient for valve assessment Other Testing 12/06/20 - Abd CT scan IMPRESSION: 1. Gallbladder distention with associated wall thickening and trace pericholecystic edema. Correlate with clinical presentation to exclude acute cholecystitis. 2. Prostamegaly with brachy therapy seeds. Urinary bladder wall thickening may be secondary to chronic bladder outlet obstruction or cystitis. Correlate with urinalysis. 3. Colonic diverticulosis without acute diverticulitis. 4. No bowel obstruction or bowel wall thickening. 5. Several subcentimeter sclerotic foci measuring up to 9 mm within the left sacrum are all new from 2010 and several of which have mildly increased in size from 2019, suspicious for sclerotic metastasis.
[2020-12-06] MEDS: PIPERACILLIN/TAZOBACTAM 3.375 GM in DEXTROSE 5% 100 ML IV SCH (18:21)
[2020-12-06] MEDS: ONDANSETRON INJ 2 MG/ML 2 ML VIAL IV PRN (18:39)
[2020-12-06] MEDS: TAMSULOSIN HCL 0.4 MG CAP PO SCH (19:45)
[2020-12-06] MEDS: oxyCODONE/ACETAMINOPHEN 5mg/325mg TAB PO PRN ×2 (19:45→19:48)
[2020-12-06] MEDS: ASPIRIN 81 MG ECTAB PO SCH (19:45)
[2020-12-06] MEDS ORDERED: LORazepam 0.25 MG/0.5 ML VIAL IV PRN (20:37)
[2020-12-06] MEDS ORDERED: METOPROLOL TARTRATE 1 MG/ML VIAL IV STA (20:42)
[2020-12-06] MEDS: MoRPHine SULFATE 4 MG/ML 1 ML CARP\\VIAL IV PRN (20:55)
[2020-12-07] MEDS: PIPERACILLIN/TAZOBACTAM 3.375 GM in DEXTROSE 5% 100 ML IV SCH ×3 (01:00→15:53)
[2020-12-07 01:02] LABS: Partial Thromboplastin Ratio 1.1; Partial Thromboplastin Time 30.1 Seconds (21.0-31.0)
[2020-12-07] MEDS: MoRPHine SULFATE 2 MG/ML CARP IV PRN (05:21)
[2020-12-07] MEDS: LEVOTHYROXINE SODIUM 137 MCG TABLET PO SCH (05:22)
[2020-12-07 05:56] LABS: Basophils # (auto) 0.03 K/uL (0-0.2); Basophils % (auto) 0.3 %; Eosinophils # (auto) 0.03 K/uL (0-0.5); Eosinophils % (auto) 0.3 %; Hematocrit (blood only) 39.3 % (42-52); Hemoglobin 13.3 g/dL (14.0-18.0); Immature Granulocytes # (auto) 0.02 K/uL (0.00-0.02); Immature Granulocytes % (auto) 0.2 %; Lymphocytes # (auto) 0.52 K/uL (1.2-3.4); Lymphocytes % (auto) 4.4 %; Mean Corpuscular Hemoglobin 30.9 pg (25-34); Mean Corpuscular Hgb Conc 33.8 g/dL (32-36); Mean Corpuscular Volume 91.4 fL (80-100); Monocytes # (auto) 0.76 K/uL (0.11-0.59); Monocytes % (auto) 6.5 %; Neutrophils # (auto) 10.39 K/uL (1.4-6.5); Neutrophils % (auto) 88.3 %; Platelet Count 133 K/uL (130-400); RDW Coefficient of Variation 14.4 % (11.5-14.5); RDW Standard Deviation 48.6 fL (36.4-46.3); White Blood Count 11.75 K/uL (4.8-10.8)
[2020-12-07 06:07] LABS: Partial Thromboplastin Ratio 1.2; Partial Thromboplastin Time 31.6 Seconds (21.0-31.0)
--- NOTE | 2020-12-07 06:20 | Electrocardiogram Report ---
Test Reason : Blood Pressure : / mmHG Vent. Rate : 105 BPM Atrial Rate : 105 BPM P-R Int : 142 ms QRS Dur : 094 ms QT Int : 330 ms P-R-T Axes : 071 037 061 degrees QTc Int : 436 ms Sinus tachycardia Possible Inferior infarct , age undetermined Abnormal ECG When compared with ECG of 24-JUL-2019 16:52, Borderline criteria for Inferior infarct are now Present Nonspecific T wave abnormality no longer evident in Lateral leads Confirmed by Dayday Galvez ([id number]) on 12/07/2020 6:20:16 AM Referred By: REFERRED SELF Confirmed By:Dayday Galvez
[2020-12-07 06:25] LABS: Albumin Level 2.8 gm/dl (3.4-5.0); BUN Creatinine Ratio 20.5 (10-20); Calcium 8.1 mg/dl (8.5-10.1); Creatinine Clr Calc Pharmacy 53.3 ml/min; Est GFR (Non-African American) 55.2 ml/min; Magnesium 2.2 mg/dl (1.8-2.4); Potassium 3.5 mmol/L (3.5-5.1)
[2020-12-07 06:35] LABS: Albumin Globulin Ratio 1.1 (0.9-2); Bilirubin,Total 4.1 mg/dl (0.2-1); Globulin 2.6 gm/dl (2.5-4.0); Total Protein 5.4 gm/dl (6.4-8.2); Troponin I 0.293 ng/ml (0-0.045)
[2020-12-07] MEDS: TRIAMCINOLONE ACET NASAL SPRAY 10.8ML BTL SCH (08:25)
[2020-12-07] MEDS: LACTATED RINGER'S 1,000 ML IV SCH ×2 (08:25→23:06)
[2020-12-07] MEDS: FLUTICASONE/VILANTEROL 100/25MCG 14 PUFFS/INHALER INH SCH (08:25)
[2020-12-07] MEDS: FAMOTIDINE 20 MG TAB PO SCH (08:26)
[2020-12-07] MEDS: VERAPAMIL HCL 180 MG TABCR PO SCH (08:26)
[2020-12-07] MEDS: LOSARTAN POTASSIUM 50 MG TAB PO SCH (08:26)
[2020-12-07] MEDS: POTASSIUM CHLORIDE CRTAB 20 MEQ TABCR PO SCH (08:26)
[2020-12-07] MEDS: ATORVASTATIN 40 MG TAB PO SCH (08:27)
[2020-12-07] MEDS: SERTRALINE HCL 50 MG TABLET PO SCH (08:27)
[2020-12-07] MEDS: ASPIRIN 81 MG ECTAB PO SCH ×2 (08:27→20:16)
[2020-12-07] MEDS: ADVANCED PROBIOTIC 1250 MG CAPSULE PO SCH (08:27)
--- NOTE | 2020-12-07 08:32 | Cardiology Consultation ---
Date of Consultation December 07, 2020 Assessment & Plan (1) Preoperative cardiovascular examination: (2) Troponin I above reference range: (3) Status post double vessel coronary artery bypass: (4) Acute cholecystitis: Patient has a history of multivessel coronary heart disease with CABG x2, COATS to LAD, SVG to circumflex obtuse marginal territory in June,. He presents with clinical symptoms suggestive of acute cholecystitis, supported by findings on CT of the abdomen pelvis. His presenting symptoms are not reminiscent of his previous anginal equivalent. I believe his troponin I elevation, which is mild and flat, is due to myocardial strain in the setting of his acute noncardiac illness. He notes no recent anginal symptoms at home, describes a stable degree of exertional shortness of breath that has not changed. Sinus tachycardia noted when he was in distress yesterday which is since resolved. His EKG reveals stable findings compared to his previous post CABG outpatient EKG tracings. Echocardiogram performed today revealed normal LV and RV function, no regional wall motion abnormalities, LVEF 60 to 65%. Would recommend proceeding to operative intervention for acute cholecystitis as indicated without further cardiac testing. Would prefer if patient remains on aspirin without interruption. It is noted that he has been intolerant of beta-araceli therapy in the past, and that is why he is on verapamil which is to be continued during the perioperative interval as this is losartan and atorvastatin. I would estimate his risk of perioperative cardiac complication is low. History of Present Illness Attending Physician: Stacy Heller MD History of Present Illness Mr Crockett is a 79 year old male seen in cardiology consultation per the [facility]. He presented via the emergency department yesterday with chief complain of abdominal pain, vomiting , and chills. He describes to me that on 12/02/2020 he had gone out to dinner at [employer] and felt sick all night long with symptoms of nauseousness vomiting and generalized upset stomach. His symptoms abated, but then came back yesterday. Report of CT of the abd/ pelvis describes "gallbladder distention with associated wall thickening and trace pericholecystic edema. Correlate with clinical presentation to exclude acute cholecystitis." Patient has been admitted to the general surgery service for tentative laparoscopic cholecystectomy. His presenting symptoms are not reminiscent of the chest pain that was his anginal equivalent when he presented with his non-ST segment elevation myocardial infarction in June,. The patient follows with Dr. Bowie and Jonnathan Song PA-C of our practice with most recent outpatient visit in August,. Cardiac History: Coronary heart disease, status post cardiac catheterization with 2 drug-eluting stents to the LAD and a drug-eluting stent to the circumflex 12/06/2018 He presented with recurrent angina, non-STEMI, June,, cardiac catheterization revealed 99% ostial/proximal in-stent restenosis of the LAD, 80 to 90% ostial stenosis of the circumflex extending into the proximal portion of the prior placed stent. The right coronary artery had mild luminal irregularities with 40% disease in the mid PDA. Patient went on to have CABG x2 at [facility] 07/14/2019 with COATS to LAD, SVG to OM, the right coronary artery has been treated medically. -History of beta-araceli intolerance -History of remote pulmonary embolism -History of prostate cancer with radioactive prostate seeds -Hypothyroidism, past thyroidectomy Allergies Allergy/AdvReac Type Severity Reaction Status Date / Time codeine AdvReac Mild N/V Verified 12/06/20 13:00 Home Medications Medication Instructions Recorded Confirmed Type aspirin [Aspir-Low] 81 mg PO BID 10/31/18 12/06/20 History guaifenesin [Mucinex] 600 mg PO Q12H PRN 10/31/18 12/06/20 History levothyroxine 137 mcg PO 4XWK 10/31/18 12/06/20 History levothyroxine [Synthroid] 150 mcg PO 3XWK 10/31/18 12/06/20 History potassium chloride [Klor-Con M10] 20 meq PO QAM 10/31/18 12/06/20 History sertraline 50 mg PO DAILY 10/31/18 12/06/20 History tamsulosin [Flomax] 0.4 mg PO HS 10/31/18 12/06/20 History triamcinolone acetonide 1 spray INTRANASAL DAILY 10/31/18 12/06/20 History acetaminophen 500 mg PO UD PRN 07/12/19 12/06/20 History albuterol sulfate 2 puff INHALATION Q6H PRN 07/12/19 12/06/20 History fluticasone propion-salmeterol 1 inh INHALATION BID 07/12/19 12/06/20 History [Wixela Inhub] ipratropium-albuterol 3 ml INHALATION Q4H PRN 07/12/19 12/06/20 History Probiotic 1 cap PO BID 07/24/19 12/06/20 History meclizine 25 mg PO Q6 PRN 07/24/19 12/06/20 History atorvastatin 80 mg PO DAILY 12/06/20 12/06/20 History cholecalciferol (vitamin D3) 25 mcg PO DAILY 12/06/20 12/06/20 History [Vitamin D3] famotidine 20 mg PO DAILY 12/06/20 12/06/20 History fluticasone propion-salmeterol 1 inh INHALATION BID 12/06/20 12/06/20 History [Wixela Inhub] hydrochlorothiazide 12.5 mg PO DAILY 12/06/20 12/06/20 History losartan 100 mg PO DAILY 12/06/20 12/06/20 History verapamil 180 mg PO DAILY 12/06/20 12/06/20 History Patient History Medical History 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 Asthma BPH (benign prostatic hyperplasia) Clostridium difficile carrier COPD (chronic obstructive pulmonary disease) Coronary atherosclerosis of [place] coronary artery 11/2018 - MARY to prox L cx, MARY x 2 to mid LAD DVT prophylaxis History of Graves' disease History of malignant melanoma of skin History of pulmonary embolism 2010 - completed Coumadin therapy HTN (hypertension) Hypertension Hypothyroidism Prostate cancer Status post seed implant Skin cancer Surgical History H/O rotator cuff surgery History of appendectomy History of basal cell carcinoma (BCC) excision History of colonoscopy with polypectomy Last 11/03/2016 recommend repeat in 3 years History of cystoscopy History of eye surgery History of hernia repair History of thyroidectomy, total History of vasectomy Status post double vessel coronary artery bypass 07/14/2019 Status post operation on nasal sinus "09/2002" Family History Father Cancer Prostate and bladder Mother Stroke Breast cancer Social History Smoking Status: Former smoker Age Quit Using Tobacco: 27; Number of Years Since Quit: 50; Second Hand Exposure: No; Do You Dip or Chew Tobacco: No; Tobacco Cessation Education Requested by Patient: No Hx Alcohol Use: Yes Alcohol type: beer and wine Alcohol Intake Frequency Comment: 1-2 drinks per day Hx Substance Use: No Preferred Language: Kinyarwanda Communication Ability: Effective Windows Server Support Technician Required: No Beliefs That Will Affect Care: None marital status: Current Living Situation: Spouse current occupation: Retired Other Information That Helps Us Care for You: No Feels Safe at Home: Yes Safety Concerns: Feels Safe At This Time Assistive Devices: None Review of Systems Review of Systems: All systems reviewed & are unremarkable except as noted in HPI & below Physical Exam Physical Exam: Temp Pulse Resp BP Pulse Ox 36.8 C 71 20 126/70 96 12/07/20 07:39 12/07/20 07:39 12/07/20 07:39 12/07/20 07:39 12/07/20 07:39 Constitutional: WD/WN, vitals as above Respiratory: normal respiratory effort, lungs clear to auscultation Cardiovascular: RRR, no murmur, no edema Gastrointestinal (Abdomen): Mild tenderness on palpation Neurologic: PERRL, EOMI, accommodation nl, no face palsy, no dysarthria Results & Data ([facility]) Vital Signs (Past 12 Hours) Vital Signs Temp Pulse Pulse Resp BP BP BP 12/07/20 07:39 36.8 C 71 20 126/70 12/07/20 03:52 36.4 C L 84 16 107/61 12/06/20 23:59 101 H 12/06/20 23:07 37.8 C H 98 H 18 112/58 L 12/06/20 20:55 99 H 163/73 H Pulse Ox 12/07/20 07:39 96 12/07/20 03:52 90 12/06/20 23:59 12/06/20 23:07 91 12/06/20 20:55 Laboratory Results Cardiac Enzymes 12/06/20 12/06/20 12/06/20 Range/Units 10:36 14:56 20:03 AST 11 L (15-37) U/L Troponin I 0.039 0.236 H* (0-0.045) ng/ml 12/07/20 12/07/20 12/07/20 Range/Units 00:28 05:36 05:36 AST Cancelled 352 H (15-37) U/L Troponin I 0.475 H* 0.293 H* (0-0.045) ng/ml Coagulation 12/06/20 12/07/20 12/07/20 Range/Units 10:36 00:28 05:36 PT 10.7 (9.0-12.0) Seconds APTT 22.8 30.1 31.6 H (21.0-31.0) Seconds CBC 12/06/20 12/07/20 Range/Units 10:36 05:36 WBC 8.40 11.75 H (4.8-10.8) K/uL RBC 4.60 L 4.30 L (4.7-6.1) M/uL Hgb 14.2 13.3 L (14.0-18.0) g/dL Hct 40.8 L 39.3 L (42-52) % Plt Count 143 133 (130-400) K/uL Neut # (Auto) 7.85 H 10.39 H (1.4-6.5) K/uL Lymph # (Auto) 0.39 L 0.52 L (1.2-3.4) K/uL [place] # (Auto) 0.07 L 0.76 H (0.11-0.59) K/uL Eos # (Auto) 0.04 0.03 (0-0.5) K/uL Baso # (Auto) 0.01 0.03 (0-0.2) K/uL Comprehensive Metabolic Panel 12/06/20 12/07/20 12/07/20 Range/Units 10:36 05:36 05:36 Sodium 140 Cancelled 141 (136-145) mmol/L Potassium 3.4 L Cancelled 3.5 (3.5-5.1) mmol/L Chloride 110 H Cancelled 112 H (98-107) mmol/L Carbon Dioxide 23 Cancelled 23 (21-32) mmol/L BUN 21 H Cancelled 26 H (7-18) mg/dl Creatinine 0.92 Cancelled 1.25 D (0.6-1.4) mg/dl Glucose 79 Cancelled 93 (70-99) mg/dl Calcium 8.6 Cancelled 8.1 L (8.5-10.1) mg/dl AST 11 L Cancelled 352 H (15-37) U/L ALT 18 Cancelled 333 H (12-78) U/L Alkaline Phosphatase 81 Cancelled 153 H (45-117) U/L Total Protein 6.2 L Cancelled 5.4 L (6.4-8.2) gm/dl Albumin 3.5 Cancelled 2.8 L (3.4-5.0) gm/dl Intake and Output 12/06/20 12/07/20 12/07/20 22:59 06:59 14:59 Intake Total 630.000 / 2565.000 115 / 2565.000 676.667 / 676.667 Output Total 103 / 513 10 / 513 Balance 527.000 / 2052.000 105 / 205.000 676.667 / 676.667 Intake: IV 630.000 / 2565.000 115 / 2565.000 676.667 / 676.667 Lactated Ringer's 1,000 ml @ 60 323.333 / 323.333 676.667 / 676.667 mls/hr IV .[id number] JOHANA Rx#: [id number] Piperacillin/Tazobactam 3.375 115 / 230 115 / 230 gm In Dextrose 5% 100 ml @ 28. 75 mls/hr IV Q8H JOHANA Rx#: [id number] Potassium Chloride / Wtr 10 meq 191.667 / 191.667 In 100 ml @ 100 mls/hr IV Q1H JOHANA Rx#:[id number] Output: Urine 100 / 510 10 / 510 # Bowel Movements 3 / 3 Other: Other Intake Source Npo Npo Weight 87.6 kg 86.5 kg Weight Measurement Method Standing Scale Built in [facility] Diagnostic Findings EKG performed 12/06/2020 and reviewed independently by the undersigned revealed sinus tachycardia 105 bpm, noted small Q waves in the inferior leads II, III , and aVF, not significantly changed compared to previous outpatient EKG performed in August, within the [facility] system with the exception of sinus tachycardia none noted. No significant repolarization changes to suggest acute ischemia. Repeat EKG this morning 12/07/2020, reviewed independently, sinus rhythm 72 bpm, no significant repolarization changes.
[2020-12-07] MEDS ORDERED: hydroCHLOROthiazide 25 MG TAB PO SCH (09:00)
--- NOTE | 2020-12-07 09:06 | Surgery Progress Note ---
Date of Service December 07, 2020 Assessment & Plan (1) History of pulmonary embolism: will plan on DVT prophylaxis with lovenox/ SCD's (2) Prostate cancer: s/p seed placement. CT scan concerning for development of sclerotic metastasis - discussed with pt and advised f/u with oncology (3) Acute cholecystitis: Continues on IV abx. (4) Elevated liver function tests: Concerning that his liver tests have increased overnight. Given clinical scenario of RUQ pain and fever, worrisome for ascending cholangitis. CT scan did not show stones or sludge so we discussed checking a RUQ U/S and MRCP to better evaluate. Would recommend GI consult. Should he need a ERCP, I had discussed with Dr. Robyn Heller, who could perform it either later today or tomorrow. Will defer to GI. Explained that he will likely still need a cholecystectomy but timing will be determined based on above results. Reviewed with Dr. Fagan. (5) Coronary atherosclerosis of [place] coronary artery: Troponin's elevated. Await cardiology eval to assess perioperative risk. Admission and Anticipated Discharge Date Admission Date: December 06, 2020 Subjective Feels steadily miserable. Still with fever overnight, pain/ nausea persist. Morphine helps with the pain. No vomiting. Very thirsty. Review of Systems Review of Systems: All systems reviewed & are unremarkable except as noted in HPI & below Physical Exam Constitutional: WD/WN, vitals as above Eyes: PERRL, conjunctivae normal, anicteric sclerae Neck: normal visual inspection and trachea midline Respiratory: normal respiratory effort, lungs clear to auscultation Cardiovascular: Rate/Rhythm: regular rate and regular rhythm Gastrointestinal (Abdomen): Inspection/Auscultation: abdomen normal to inspection and normal bowel sounds Percussion/Palpation: + abdomen tender (in RUQ with voluntary guarding), abdomen soft and + hernia (umbilical hernia, tender, not reducible) Results & Data ([facility]) Vital Signs (Past 12 Hours) Vital Signs Temp Pulse Pulse Resp BP BP Pulse Ox 12/07/20 07:39 36.8 C 71 20 126/70 96 12/07/20 03:52 36.4 C L 84 16 107/61 90 12/06/20 23:59 101 H 12/06/20 23:07 37.8 C H 98 H 18 112/58 L 91 Laboratory Results Abnormal lab results 12/06/20 12/06/20 12/06/20 Range/Units 10:36 10:36 20:03 WBC (4.8-10.8) K/uL RBC 4.60 L (4.7-6.1) M/uL Hgb (14.0-18.0) g/dL Hct 40.8 L (42-52) % RDW Std Deviation (36.4-46.3) fL MPV 10.8 H (7.4-10.4) fL Neut # (Auto) 7.85 H (1.4-6.5) K/uL Lymph # (Auto) 0.39 L (1.2-3.4) K/uL [place] # (Auto) 0.07 L (0.11-0.59) K/uL Immature Gran # (Auto) 0.04 H (0.00-0.02) K/uL APTT (21.0-31.0) Seconds Potassium 3.4 L (3.5-5.1) mmol/L Chloride 110 H (98-107) mmol/L BUN 21 H (7-18) mg/dl BUN/Creatinine Ratio 22.7 H (10-20) Calcium (8.5-10.1) mg/dl Magnesium 1.7 L (1.8-2.4) mg/dl Total Bilirubin 1.8 H (0.2-1) mg/dl AST 11 L (15-37) U/L ALT (12-78) U/L Alkaline Phosphatase (45-117) U/L Troponin I 0.236 H* (0-0.045) ng/ml Total Protein 6.2 L (6.4-8.2) gm/dl Albumin (3.4-5.0) gm/dl 12/07/20 12/07/20 12/07/20 Range/Units 00:28 05:36 05:36 WBC 11.75 H (4.8-10.8) K/uL RBC 4.30 L (4.7-6.1) M/uL Hgb 13.3 L (14.0-18.0) g/dL Hct 39.3 L (42-52) % RDW Std Deviation 48.6 H (36.4-46.3) fL MPV 11.0 H (7.4-10.4) fL Neut # (Auto) 10.39 H (1.4-6.5) K/uL Lymph # (Auto) 0.52 L (1.2-3.4) K/uL [place] # (Auto) 0.76 H (0.11-0.59) K/uL Immature Gran # (Auto) (0.00-0.02) K/uL APTT 31.6 H (21.0-31.0) Seconds Potassium (3.5-5.1) mmol/L Chloride (98-107) mmol/L BUN (7-18) mg/dl BUN/Creatinine Ratio (10-20) Calcium (8.5-10.1) mg/dl Magnesium (1.8-2.4) mg/dl Total Bilirubin (0.2-1) mg/dl AST (15-37) U/L ALT (12-78) U/L Alkaline Phosphatase (45-117) U/L Troponin I 0.475 H* (0-0.045) ng/ml Total Protein (6.4-8.2) gm/dl Albumin (3.4-5.0) gm/dl 12/07/20 Range/Units 05:36 WBC (4.8-10.8) K/uL RBC (4.7-6.1) M/uL Hgb (14.0-18.0) g/dL Hct (42-52) % RDW Std Deviation (36.4-46.3) fL MPV (7.4-10.4) fL Neut # (Auto) (1.4-6.5) K/uL Lymph # (Auto) (1.2-3.4) K/uL [place] # (Auto) (0.11-0.59) K/uL Immature Gran # (Auto) (0.00-0.02) K/uL APTT (21.0-31.0) Seconds Potassium (3.5-5.1) mmol/L Chloride 112 H (98-107) mmol/L BUN 26 H (7-18) mg/dl BUN/Creatinine Ratio 20.5 H (10-20) Calcium 8.1 L (8.5-10.1) mg/dl Magnesium (1.8-2.4) mg/dl Total Bilirubin 4.1 H D (0.2-1) mg/dl AST 352 H (15-37) U/L ALT 333 H (12-78) U/L Alkaline Phosphatase 153 H (45-117) U/L Troponin I 0.293 H* (0-0.045) ng/ml Total Protein 5.4 L (6.4-8.2) gm/dl Albumin 2.8 L (3.4-5.0) gm/dl
[2020-12-07] MEDS: ONDANSETRON INJ 2 MG/ML 2 ML VIAL IV PRN (09:15)
[2020-12-07] MEDS ORDERED: fentaNYL citrate 100 MCG/2 ML VIAL ONE (11:07)
[2020-12-07] MEDS ORDERED: ONDANSETRON INJ 2 MG/ML 2 ML VIAL ONE (11:10)
[2020-12-07] MEDS ORDERED: SUCCINYLCHOLINE CHLORIDE 20 MG/ML 10 ML VIAL IV ONE (11:10)
[2020-12-07] MEDS ORDERED: DEXAMETHASONE SOD INJ 4 MG/ML VIAL ONE (11:10)
[2020-12-07] MEDS ORDERED: ROCURONIUM BROMIDE 10 MG/ML 5 ML VIAL IV ONE (11:10)
[2020-12-07] MEDS ORDERED: PROPOFOL IV EMULSION 10 MG/ML 20 ML VIAL IV ONE (11:10)
[2020-12-07] MEDS ORDERED: LIDOCAINE 2% 2 ML VIAL/AMP(20MG/ML) INFIL ONE (11:10)
--- NOTE | 2020-12-07 11:10 | Anesthesiology Consultation ---
Date of Service December 07, 2020 The patient has a significant cardiac history with elevated troponin on admission. Dr. Kevin evaluated the patient and stated that he is an acceptable cardiac risk to proceed with surgery. Assessment & Plan (1) Encounter for pre-operative examination: Chart Review Chart Review: Acceptable Risk for Surgery (necessary surgery) and Patient NOT seen in Pre Admission Testing Consults Requested cardiology evaluated the patient History Surgery Operation Date: 12/06/20 15:30 Proposed Procedures p Laparoscopic Cholecystectomy - Stacy Heller MD Operation Date: 12/07/20 12:30 Proposed Procedures p Endoscopic Retrograde Cholangiopancreato(Not Applicable) - Ravinder Corrigan MD Height/Weight Height: 5 ft 8 in Weight: 86.5 kg Allergies Allergy/AdvReac Type Severity Reaction Status Date / Time codeine AdvReac Mild N/V Verified 12/06/20 13:00 Medications Home Medications Medication Instructions Recorded Confirmed Last Taken aspirin [Aspir-Low] 81 mg PO BID 10/31/18 12/06/20 12/05/20 guaifenesin [Mucinex] 600 mg PO Q12H PRN 10/31/18 12/06/20 07/12/19 levothyroxine 137 mcg PO 4XWK 10/31/18 12/06/20 07/24/19 levothyroxine [Synthroid] 150 mcg PO 3XWK 10/31/18 12/06/20 07/23/19 potassium chloride [Klor-Con M10] 20 meq PO QAM 10/31/18 12/06/20 07/24/19 sertraline 50 mg PO DAILY 10/31/18 12/06/20 12/05/20 tamsulosin [Flomax] 0.4 mg PO HS 10/31/18 12/06/20 12/05/20 triamcinolone acetonide 1 spray INTRANASAL DAILY 10/31/18 12/06/20 07/24/19 acetaminophen 500 mg PO UD PRN 07/12/19 12/06/20 Unknown albuterol sulfate 2 puff INHALATION Q6H PRN 07/12/19 12/06/20 Unknown fluticasone propion-salmeterol 1 inh INHALATION BID 07/12/19 12/06/20 07/24/19 [Wixela Inhub] ipratropium-albuterol 3 ml INHALATION Q4H PRN 07/12/19 12/06/20 07/12/19 Probiotic 1 cap PO BID 07/24/19 12/06/20 12/05/20 meclizine 25 mg PO Q6 PRN 07/24/19 12/06/20 Unknown atorvastatin 80 mg PO DAILY 12/06/20 12/06/20 12/05/20 cholecalciferol (vitamin D3) 25 mcg PO DAILY 12/06/20 12/06/20 Unknown [Vitamin D3] famotidine 20 mg PO DAILY 12/06/20 12/06/20 12/05/20 fluticasone propion-salmeterol 1 inh INHALATION BID 12/06/20 12/06/20 Unknown [Wixela Inhub] hydrochlorothiazide 12.5 mg PO DAILY 12/06/20 12/06/20 12/05/20 losartan 100 mg PO DAILY 12/06/20 12/06/20 12/05/20 verapamil 180 mg PO DAILY 12/06/20 12/06/20 12/05/20 Active Medications Generic Name Dose Route Start Last Admin Trade Name Freq PRN Reason Stop Dose Admin Aspirin 81 mg 12/06/20 21:00 12/07/20 08:27 Aspirin 81 Mg Ectab PO 01/05/21 20:59 81 mg BID JOHANA Administration Atorvastatin Calcium 80 mg 12/07/20 09:00 12/07/20 08:27 Atorvastatin 40 Mg Tab PO 01/06/21 08:59 80 mg DAILY JOHANA Administration Enoxaparin Sodium 30 mg 12/06/20 17:00 12/06/20 17:47 Enoxaparin Inj 30 Mg/0.3 Ml Syr SQ 01/05/21 16:59 30 mg Q24H JOHANA Administration Famotidine 20 mg 12/07/20 09:00 12/07/20 08:26 Famotidine 20 Mg Tab PO 01/06/21 08:59 20 mg DAILY JOHANA Administration Fluticasone/Vilanterol 1 puffs 12/07/20 09:00 12/07/20 08:25 Fluticasone/Vilanterol 100/25mcg 14 Puffs/Inhaler INH 01/06/21 08:59 1 puffs DAILY JOHANA Administration Protocol Lactated Ringer's 1,000 mls @ 60 mls/hr 12/06/20 15:46 12/07/20 08:25 Lr IV 01/05/21 15:45 60 mls/hr .[id number] JOHANA Administration Piperacillin Sod/Tazobactam 115 mls @ 28.75 mls/hr 12/06/20 17:00 12/07/20 08:25 Sod 3.375 gm/ Dextrose IV 12/16/20 16:59 28.8 mls/hr Q8H JOHANA Administration Protocol Lactobacillus Acidoph/Casei/Rhamnos 2 cap 12/07/20 09:00 12/07/20 08:27 Advanced Probiotic 1250 Mg Capsule PO 01/06/21 08:59 2 cap DAILY JOHANA Administration Protocol Levothyroxine Sodium 137 mcg 12/07/20 06:30 12/07/20 05:22 Levothyroxine Sodium 137 Mcg Tablet PO 01/06/21 06:29 137 mcg [id number] JOHANA Administration Losartan Potassium 100 mg 12/07/20 09:00 12/07/20 08:26 Losartan Potassium 50 Mg Tab PO 01/06/21 08:59 100 mg DAILY JOHANA Administration Morphine Sulfate 2 mg 12/06/20 15:46 12/07/20 05:21 Morphine Sulfate 2 Mg/Ml Carp IV 12/20/20 15:45 2 mg Q3H PRN Administration Pain (1,2,3,4,5) & Pre PT Morphine Sulfate 4 mg 12/06/20 15:46 12/06/20 20:55 Morphine Sulfate 4 Mg/Ml 1 Ml Carp\\Vial IV 12/20/20 15:45 4 mg Q3H PRN Administration Pain (6,7,8,9,10) Ondansetron HCl 4 mg 12/06/20 15:46 12/07/20 09:15 Ondansetron Inj 2 Mg/Ml 2 Ml Vial IV 01/05/21 15:45 4 mg Q4H PRN Administration Nausea And Vomiting Oxycodone/Acetaminophen 2 tab 12/06/20 15:46 12/06/20 19:48 Oxycodone/Acetaminophen 5mg/325mg Tab PO 12/20/20 15:45 2 tab Q4H PRN Administration SEVERE Pain (7,8,9,10) Potassium Chloride 20 meq 12/07/20 09:00 12/07/20 08:26 Potassium Chloride Crtab 20 Meq Tabcr PO 01/06/21 08:59 20 meq QAM JOHANA Administration Sertraline HCl 50 mg 12/07/20 09:00 12/07/20 08:27 Sertraline Hcl 50 Mg Tablet PO 01/06/21 08:59 50 mg DAILY JOHANA Administration Tamsulosin HCl 0.4 mg 12/06/20 21:00 12/06/20 19:45 Tamsulosin Hcl 0.4 Mg Cap PO 01/05/21 20:59 0.4 mg HS JOHANA Administration Triamcinolone Acetonide 1 sprays 12/07/20 09:00 12/07/20 08:25 Triamcinolone Acet Nasal [place] 10.8ml Btl NA 01/06/21 08:59 1 sprays DAILY JOHANA Administration Verapamil HCl 180 mg 12/07/20 09:00 12/07/20 08:26 Verapamil Hcl 180 Mg Tabcr PO 01/06/21 08:59 180 mg DAILY JOHANA Administration NPO Date Last Intake of Solids: 12/05/20 Time Last Intake of Solids: 18:00 Past Medical History Medical History 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 Asthma BPH (benign prostatic hyperplasia) Clostridium difficile carrier COPD (chronic obstructive pulmonary disease) Coronary atherosclerosis of [place] coronary artery 11/2018 - MARY to prox L cx, MARY x 2 to mid LAD DVT prophylaxis History of Graves' disease History of malignant melanoma of skin History of pulmonary embolism 2010 - completed Coumadin therapy HTN (hypertension) Hypertension Hypothyroidism Prostate cancer Status post seed implant Skin cancer Past Family History Family History Father Cancer Prostate and bladder Mother Stroke Breast cancer Past Surgical History Surgical History H/O rotator cuff surgery History of appendectomy History of basal cell carcinoma (BCC) excision History of colonoscopy with polypectomy Last 11/03/2016 recommend repeat in 3 years History of cystoscopy History of eye surgery History of hernia repair History of thyroidectomy, total History of vasectomy Status post double vessel coronary artery bypass 07/14/2019 Status post operation on nasal sinus "09/2002" Social History Smoking Status: Former smoker tobacco type: cigarettes Do You Dip or Chew Tobacco: No Hx Alcohol Use: Yes Alcohol type: beer and wine alcohol intake frequency: a few times a week Hx Substance Use: No substance use type: does not use Physical Exam Vital Signs Last Vital Signs Temp 36.8 C 12/07/20 07:39 Pulse 71 12/07/20 07:39 Resp 20 12/07/20 07:39 BP 126/70 12/07/20 07:39 Pulse Ox 96 12/07/20 07:39 Testing Laboratory Results 12/07/20 05:36 12/07/20 05:36 PT 10.7 Seconds (9.0-12.0) 12/06/20 10:36 INR 1.1 (0.9-1.1) 12/06/20 10:36 APTT 31.6 Seconds (21.0-31.0) H 12/07/20 05:36 Urine Color Yellow 12/06/20 10:46 Urine Appearance Clear (Clear) 12/06/20 10:46 Urine pH 5.0 (4.5-7.5) 12/06/20 10:46 Ur Specific [place] 1.012 (1.000-1.030) 12/06/20 10:46 Urine Protein Negative (Negative) 12/06/20 10:46 Urine Glucose (UA) Negative (Negative) 12/06/20 10:46 Urine Ketones Negative (Negative) 12/06/20 10:46 Urine Nitrite Negative (Negative) 12/06/20 10:46 Ur Leukocyte Esterase Negative (Negative) 12/06/20 10:46 12/06/20 10:36 Aerobic Blood Culture - Preliminary Blood No growth in Aerobic bottle after 24 hours. Anaerobic Blood Culture - Preliminary No growth in Anaerobic bottle after 24 hours. 12/06/20 10:38 Aerobic Blood Culture - Preliminary Blood No growth in Aerobic bottle after 24 hours. Anaerobic Blood Culture - Preliminary No growth in Anaerobic bottle after 24 hours. 12/07/20 12/06/20 07:11 23:53 POC Glucose 90 85 Electrocardiogram Date: 12/07/20 Findings: + NSR @ (88) and + MO (possible inferior) RSR' pattern suggest R ventricular conduction delay Chest X-Ray Date: 12/06/20 Findings: + NAD Echocardiogram Date: 12/07/20 EF: 60-65 LV Function: normal Other Findings: + LVH (mild concentric) and + diastolic dysfunction (grade 1) RVSP 30-40 mm Hg, mild TR Other Testing 12/06/20 - Abd CT scan IMPRESSION: 1. Gallbladder distention with associated wall thickening and trace pericholecystic edema. Correlate with clinical presentation to exclude acute cholecystitis. 2. Prostamegaly with brachy therapy seeds. Urinary bladder wall thickening may be secondary to chronic bladder outlet obstruction or cystitis. Correlate with urinalysis. 3. Colonic diverticulosis without acute diverticulitis. 4. No bowel obstruction or bowel wall thickening. 5. Several subcentimeter sclerotic foci measuring up to 9 mm within the left sacrum are all new from 2011 and several of which have mildly increased in size from 2019, suspicious for sclerotic metastasis.
[2020-12-07] MEDS ORDERED: LABETALOL HCL IV 5 MG/ML 20ML IV PRN (11:13)
[2020-12-07] MEDS ORDERED: ePHEDrine sulfate 50 MG/ML AMP IV PRN (11:13)
[2020-12-07] MEDS ORDERED: ONDANSETRON INJ 2 MG/ML 2 ML VIAL IV PRN (11:13)
[2020-12-07] MEDS ORDERED: ATROPINE SULFATE 0.1 MG/ML 10ML SYR IV PRN (11:13)
[2020-12-07] MEDS ORDERED: MEPERIDINE HCL 25 MG/ML CARP/VIAL IV PRN (11:13)
[2020-12-07] MEDS ORDERED: fentaNYL citrate 100 MCG/2 ML VIAL IV PRN (11:13)
[2020-12-07] MEDS ORDERED: PHENYLEPHRINE 100MCG/ML 5ML SYR IV PRN (11:13)
[2020-12-07] MEDS ORDERED: HYDROmorphone INJ 1 MG/ML SYRINGE IV PRN (11:13)
--- NOTE | 2020-12-07 11:38 | Magnetic Resonance Report ---
MR MRCP HISTORY: rule out choledocholithiasis, has fever, right upper quadrant pain TECHNIQUE: MRCP of the abdomen was performed without contrast according to standard departmental prot ocol. COMPARISON STUDY: Abdomen and pelvis CT 12/06/2020. FINDINGS: There are poststernotomy changes. Trace bilateral pleural effusions are noted. There again noted to T2 hyperintense lesion within the left hepatic lobe with the largest measuring 1.7 cm. These are incompletely characters on this noncontrast study but favor cysts. The spleen, adrenal glands, a nd pancreas are unremarkable. There is moderate bilateral perinephric edema. No change in the 5 cm pa rapelvic cyst within the right kidney. No hydronephrosis. Normal caliber abdominal aorta. The gallbla dder remains distended and demonstrates mild gallbladder wall thickening measuring up to 3.5 mm. Smal l amount of sludge versus tiny stones layering within the neck of the gallbladder. There is abrupt cu t off within the cystic duct on image 130 of series 6. This could represent small stones or sludge at this location. Common bile duct is within normal limits for age measuring 7 mm in diameter. The main pancreatic duct is slightly dilated at 4 mm. There is a small diverticulum at the second portion of the duodenum. No definite filling defects within the common bile duct to suggest a stone. Visualized loops of bowel show no wall thickening or obstruction. There is mild to moderate left-sided intrahepa tic bile duct dilatation with irregularity of the left intrahepatic bile ducts and an 11 mm filling d efect seen within the proximal left hepatic duct. This is best seen on series 601 image 99. There is also mild focal narrowing within the proximal left extra hepatic bile duct best seen on image 107 of series 601. IMPRESSION: 1. Distended and mildly thickened gallbladder is again noted. There is a small amount of layering slu dge/stones within the neck of the gallbladder. In addition, there is focal abrupt cut off within the mid cystic duct. This could represent small stones within the cystic duct. Therefore, these findings are suspicious for acute cholecystitis. Surgical consultation recommended. 2. Mild to moderate left-sided intrahepatic bile duct dilatation with an 11 mm filling defect seen wi thin the proximal left hepatic duct and mild focal narrowing at the origin of the left extra hepatic bile duct. These findings are nonspecific and could be due to an underlying lesion or possibly pyogen ic cholangitis. ERCP is recommended for further evaluation. 3. Additional findings as described above. 4. These findings were called/faxed to the referring physician following dictation. ACT 112: Negative or not required by law. Electronically signed by: Jerry Yeager M.D. 12/07/2020 11:37 AM
--- NOTE | 2020-12-07 12:01 | Gastrointestinal Consultation ---
Date of Consultation December 07, 2020 Assessment & Plan (1) Elevated liver function tests: (2) Cholangitis: Plan for ERCP today. MRCP reviewed and showed stone/sludge in GB, possible left hepatic duct obstruction. Patient was explained in detail regarding risks, benefits, limitations and alternatives of the above endoscopic procedure. Risks of intravenous sedation used for procedure were also explained. Risks include, but not limited to acute pancreatitis, perforation, bleeding, infection, respiratory distress, cardiac arrest and . Patient is also aware about the possibility of missed lesion. Patient's questions were answered. The patient verbalized understanding the information and agreed to undergo the procedure. He will need EUS electively as OP to evaluate his dilated PD. History of Present Illness Attending Physician: Stacy Heller MD 79 years old male patient with Hx of Prostate cancer, presented with abdominal pain, found to have acute cholecystitis, surgical resection deferred due to rise in LFTs and biliary ductal dilation on imaging concerning for acute cholangitis. Patient reports mild RUQ abdominal pain, no nausea or vomiting, no diarrhea or constipation. Allergies Allergy/AdvReac Type Severity Reaction Status Date / Time codeine AdvReac Mild N/V Verified 12/06/20 13:00 Home Medications Medication Instructions Recorded Confirmed Type aspirin [Aspir-Low] 81 mg PO BID 10/31/18 12/06/20 History guaifenesin [Mucinex] 600 mg PO Q12H PRN 10/31/18 12/06/20 History levothyroxine 137 mcg PO 4XWK 10/31/18 12/06/20 History levothyroxine [Synthroid] 150 mcg PO 3XWK 10/31/18 12/06/20 History potassium chloride [Klor-Con M10] 20 meq PO QAM 10/31/18 12/06/20 History sertraline 50 mg PO DAILY 10/31/18 12/06/20 History tamsulosin [Flomax] 0.4 mg PO HS 10/31/18 12/06/20 History triamcinolone acetonide 1 spray INTRANASAL DAILY 10/31/18 12/06/20 History acetaminophen 500 mg PO UD PRN 07/12/19 12/06/20 History albuterol sulfate 2 puff INHALATION Q6H PRN 07/12/19 12/06/20 History fluticasone propion-salmeterol 1 inh INHALATION BID 07/12/19 12/06/20 History [Wixela Inhub] ipratropium-albuterol 3 ml INHALATION Q4H PRN 07/12/19 12/06/20 History Probiotic 1 cap PO BID 07/24/19 12/06/20 History meclizine 25 mg PO Q6 PRN 07/24/19 12/06/20 History atorvastatin 80 mg PO DAILY 12/06/20 12/06/20 History cholecalciferol (vitamin D3) 25 mcg PO DAILY 12/06/20 12/06/20 History [Vitamin D3] famotidine 20 mg PO DAILY 12/06/20 12/06/20 History fluticasone propion-salmeterol 1 inh INHALATION BID 12/06/20 12/06/20 History [Wixela Inhub] hydrochlorothiazide 12.5 mg PO DAILY 12/06/20 12/06/20 History losartan 100 mg PO DAILY 12/06/20 12/06/20 History verapamil 180 mg PO DAILY 12/06/20 12/06/20 History Patient History Medical History 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 Asthma BPH (benign prostatic hyperplasia) Clostridium difficile carrier COPD (chronic obstructive pulmonary disease) Coronary atherosclerosis of [place] coronary artery 11/2018 - MARY to prox L cx, MARY x 2 to mid LAD DVT prophylaxis History of Graves' disease History of malignant melanoma of skin History of pulmonary embolism 2010 - completed Coumadin therapy HTN (hypertension) Hypertension Hypothyroidism Prostate cancer Status post seed implant Skin cancer Surgical History H/O rotator cuff surgery History of appendectomy History of basal cell carcinoma (BCC) excision History of colonoscopy with polypectomy Last 11/03/2016 recommend repeat in 3 years History of cystoscopy History of eye surgery History of hernia repair History of thyroidectomy, total History of vasectomy Status post double vessel coronary artery bypass 07/14/2019 Status post operation on nasal sinus "09/2002" Family History Father Cancer Prostate and bladder Mother Stroke Breast cancer Social History Smoking Status: Former smoker Age Quit Using Tobacco: 27; Number of Years Since Quit: 50; Second Hand Exposure: No; Do You Dip or Chew Tobacco: No; Tobacco Cessation Education Requested by Patient: No Hx Alcohol Use: Yes Alcohol type: beer and wine Alcohol Intake Frequency Comment: 1-2 drinks per day Hx Substance Use: No Preferred Language: Afghan Communication Ability: Effective Medical Scribe Required: No Beliefs That Will Affect Care: None marital status: Current Living Situation: Spouse current occupation: Retired Other Information That Helps Us Care for You: No Feels Safe at Home: Yes Safety Concerns: Feels Safe At This Time Assistive Devices: None Review of Systems Constitutional: no fever, no chills, no fatigue and no weight loss Eyes: no eye pain and no worsening vision Ear, Nose, Mouth, Throat: no tinnitus, no dizziness, no nasal discharge and no epistaxis Respiratory: no cough, no dyspnea, no dyspnea on exertion and no wheezing Cardiovascular: no chest pain, no orthopnea, no palpitations and no edema Gastrointestinal: as per Subjective / HPI Musculoskeletal: no stiffness and no myalgia Neurologic: no localized weakness, no paralysis, no tremor(s) and no headache(s) Endocrine: no polydipsia and no polyuria Hematologic / Lymphatic: no easy bleeding and no night sweats Physical Exam Constitutional: + well hydrated, cooperative and comfortable Eyes: PERRL, conjunctivae normal, anicteric sclerae ENMT: external ear and nose normal, oropharynx normal Neck: normal visual inspection and trachea midline Respiratory: normal respiratory effort, lungs clear to auscultation Auscultation: no wheezes Cardiovascular: RRR, no murmur, no edema Gastrointestinal (Abdomen): normal bowel sounds, soft, nontender, no hepatosplenomegaly Musculoskeletal: no cyanosis or clubbing, extremities motor strength 5/5 Skin: no rashes, warm and dry Neurologic: awake; no focal motor deficits Motor/Sensory: no tremor Results & Data ([facility]) Vital Signs (Past 12 Hours) Vital Signs Temp Pulse Pulse Resp BP BP Pulse Ox 12/07/20 07:39 36.8 C 71 20 126/70 96 12/07/20 03:52 36.4 C L 84 16 107/61 90 12/06/20 23:59 101 H Laboratory Results Laboratory Results - last 24 hr 12/06/20 12/06/20 12/06/20 10:54 14:56 20:03 WBC RBC Hgb Hct MCV MCH MCHC RDW Std Deviation RDW Coeff of Valentino Plt Count MPV Immature Gran % (Auto) Neut % (Auto) Lymph % (Auto) Carbon % (Auto) Eos % (Auto) Baso % (Auto) Neut # (Auto) Lymph # (Auto) Carbon # (Auto) Eos # (Auto) Baso # (Auto) Immature Gran # (Auto) APTT PTT Ratio Sodium Potassium Chloride Carbon Dioxide Anion Gap BUN Creatinine Est Cr Clr Drug Dosing Est GFR ( Amer) Est GFR (Non-Af Amer) BUN/Creatinine Ratio Glucose POC Glucose Calcium Magnesium Total Bilirubin AST ALT Alkaline Phosphatase Troponin I 0.039 0.236 H* Total Protein Albumin Globulin Albumin/Globulin Ratio SARS-CoV-2 (PCR) NEGATIVE 12/06/20 12/07/20 12/07/20 23:53 00:28 00:28 WBC RBC Hgb Hct MCV MCH MCHC RDW Std Deviation RDW Coeff of Valentino Plt Count MPV Immature Gran % (Auto) Neut % (Auto) Lymph % (Auto) Carbon % (Auto) Eos % (Auto) Baso % (Auto) Neut # (Auto) Lymph # (Auto) Carbon # (Auto) Eos # (Auto) Baso # (Auto) Immature Gran # (Auto) APTT 30.1 PTT Ratio 1.1 Sodium Potassium Chloride Carbon Dioxide Anion Gap BUN Creatinine Est Cr Clr Drug Dosing Est GFR ( Amer) Est GFR (Non-Af Amer) BUN/Creatinine Ratio Glucose POC Glucose 85 Calcium Magnesium Total Bilirubin AST ALT Alkaline Phosphatase Troponin I 0.475 H* Total Protein Albumin Globulin Albumin/Globulin Ratio SARS-CoV-2 (PCR) 12/07/20 12/07/20 12/07/20 05:36 05:36 05:36 WBC 11.75 H RBC 4.30 L Hgb 13.3 L Hct 39.3 L MCV 91.4 MCH 30.9 MCHC 33.8 RDW Std Deviation 48.6 H RDW Coeff of Valentino 14.4 Plt Count 133 MPV 11.0 H Immature Gran % (Auto) 0.2 Neut % (Auto) 88.3 Lymph % (Auto) 4.4 Carbon % (Auto) 6.5 Eos % (Auto) 0.3 Baso % (Auto) 0.3 Neut # (Auto) 10.39 H Lymph # (Auto) 0.52 L Carbon # (Auto) 0.76 H Eos # (Auto) 0.03 Baso # (Auto) 0.03 Immature Gran # (Auto) 0.02 APTT 31.6 H PTT Ratio 1.2 Sodium Cancelled Potassium Cancelled Chloride Cancelled Carbon Dioxide Cancelled Anion Gap Cancelled BUN Cancelled Creatinine Cancelled Est Cr Clr Drug Dosing Cancelled Est GFR ( Amer) Cancelled Est GFR (Non-Af Amer) Cancelled BUN/Creatinine Ratio Cancelled Glucose Cancelled POC Glucose Calcium Cancelled Magnesium Cancelled Total Bilirubin Cancelled AST Cancelled ALT Cancelled Alkaline Phosphatase Cancelled Troponin I Total Protein Cancelled Albumin Cancelled Globulin Cancelled Albumin/Globulin Ratio Cancelled SARS-CoV-2 (PCR) 12/07/20 12/07/20 05:36 07:11 WBC RBC Hgb Hct MCV MCH MCHC RDW Std Deviation RDW Coeff of Valentino Plt Count MPV Immature Gran % (Auto) Neut % (Auto) Lymph % (Auto) Carbon % (Auto) Eos % (Auto) Baso % (Auto) Neut # (Auto) Lymph # (Auto) Carbon # (Auto) Eos # (Auto) Baso # (Auto) Immature Gran # (Auto) APTT PTT Ratio Sodium 141 Potassium 3.5 Chloride 112 H Carbon Dioxide 23 Anion Gap 6.0 BUN 26 H Creatinine 1.25 D Est Cr Clr Drug Dosing 53.3 Est GFR ( Amer) 64.0 Est GFR (Non-Af Amer) 55.2 BUN/Creatinine Ratio 20.5 H Glucose 93 POC Glucose 90 Calcium 8.1 L Magnesium 2.2 Total Bilirubin 4.1 H D AST 352 H ALT 333 H Alkaline Phosphatase 153 H Troponin I 0.293 H* Total Protein 5.4 L Albumin 2.8 L Globulin 2.6 Albumin/Globulin Ratio 1.1 SARS-CoV-2 (PCR)
[2020-12-07] MEDS ORDERED: INDOMETHACIN 50 MG SUPP PR ONE (12:05)
--- NOTE | 2020-12-07 12:49 | Operative Report ---
Post Operative Report Pre & Post Diagnosis Operation Date: 12/06/20 15:30 <No data on this case meets the specified criteria> Operation Date: 12/07/20 12:30 Pre-Op Diagnosis: acute cholecystitis Post-Op Diagnosis: acute cholecystitis I identified the patient and participated in the time-out.: Yes Procedure Operation Date: 12/06/20 15:30 <No data on this case meets the specified criteria> Operation Date: 12/07/20 12:30 Actual Procedures p Endoscopic Retrograde Cholangiopancreatography(Not Applicable) - Ravinder Corrigan MD Surgeon Ravinder Corrigan MD Drafter (Cad) Electrical None Estimated Blood Loss 0 Findings See Below (CBD sludge and stone removed) Specimens None Description of Procedure ERCP I attest to the content of the Intraoperative Record and any orders documented therein. Any exceptions are noted below.
--- NOTE | 2020-12-07 13:09 | Hospitalist Progress Note ---
Date of Service December 07, 2020 Assessment & Plan (1) Acute cholecystitis: Present on admission with RUQ abdominal pain associated with nausea CT abd/pelvis showed gallbladder distention with associated wall thickening and trace pericholecystic edema. Surgery on board Continue IV abx with Zosyn and IVF Case discussed with surgery recommended MRCP due to elevated Liver enzymes Will need cholecystectomy as per Surgery, timing as per Surgery team Will consult GI Continue pain management Continue NPO for now (2) Cholangitis: (3) Elevated liver function tests: Liver enzymes worsening with AST 352, ALT 333 and ALK 153 MRCP showed distended and mildly thickened gallbladder. There is a small amount of layering sludge/stones within the neck of the gallbladder. In addition, there is focal abrupt cut off within the mid cystic duct. This could represent small stones within the cystic duct. Mild to moderate left-sided intrahepatic bile duct dilatation with an 11 mm filling defect seen within the proximal left hepatic duct and mild focal narrowing at the origin of the left extra hepatic bile duct. Gastro consulted to eval for ERCP ERCP will performed by Gastro Dr. Corrigan Continue monitor LFT (4) Elevated troponin: (5) Coronary atherosclerosis of [place] coronary artery: S/P CABG x 2 on 2018 Possible due to myocardial strain in the setting of his acute noncardiac illness. Troponin peaked at 0.4 75, then trending down to 0.293 EKG showed no acute ischemic changes Cardiology on board Echocardiogram performed today revealed normal LV and RV function, no regional wall motion abnormalities, LVEF 60 to 65%. OK from Cardiology to proceed to operative intervention for acute cholecystitis No additional cardiac testing needing Continue aspirin and verapamil without interruption. Continue losartan and atorvastatin, but if Liver enzymes worsening, will hold statin Continue monitor (6) HTN (hypertension): BP stable Continue Verapamil and Losartan Continue monitor BP (7) Asthma: Continue Neb treatment Stable (8) Hypokalemia: K 3.5 today Continue monitor BMP (9) Prostate cancer: (10) BPH (benign prostatic hyperplasia): Continue home dosing of Flomax. Patient noted to have possible bony metastases on CT of the abd/pelvis. This was discussed with the patient. He will require outpatient follow up with PCP and Hematology/Oncology for further workup and management. (11) Hypothyroidism: Continue home dosing of levothyroxine (12) History of pulmonary embolism: (13) DVT prophylaxis: Per surgical team Thank you for this consultation. We will follow the patient with you during their hospital stay. You can reach a member of the [facility] Hospitalist Team 07/02 via pager @ [phone] or via [employer] Admission and Anticipated Discharge Date Admission Date: December 06, 2020 Subjective Pt was seen and examined for follow up of RUQ abdominal pain Lying in bed with discomfort Pt said that he feels nauseated He said that the pain med seems to help Denies any chest pain, palpitation, dizziness and SOB Review of Systems Review of Systems: All systems reviewed & are unremarkable except as noted in Subjective Physical Exam Physical Exam: General- No acute distress Head- atraumatic Eyes- PERRL, EOMI, ENT- oropharynx clear Neck- supple, no JVD Lungs- clear to auscultation Heart- regular rhythm; no murmur Abdomen- +RUQ tenderness, Nondistended, umbilical hernia Extremities- no calf tenderness Neuro- alert, oriented x 3; PERRL, EOMI; no facial palsy; no dysarthria Skin- warm & dry Results & Data Results & Data ([facility]) Vital Signs (Past 12 Hours) Vital Signs Temp Pulse Resp BP BP Pulse Ox 12/07/20 07:39 36.8 C 71 20 126/70 96 12/07/20 03:52 36.4 C L 84 16 107/61 90
--- NOTE | 2020-12-07 13:38 | Anesthesiology Progress Note ---
Date of Service December 07, 2020 Anesthesia Post Procedure Vital Signs Vital Signs: Temp Pulse Pulse Pulse Pulse Resp BP 12/07/20 13:33 36.9 C 66 16 12/07/20 13:25 63 16 12/07/20 13:15 65 17 12/07/20 13:05 75 16 12/07/20 12:58 36.8 C 80 16 12/07/20 07:39 36.8 C 71 20 12/07/20 03:52 36.4 C L 84 16 12/06/20 23:59 101 H 12/06/20 23:07 37.8 C H 98 H 18 12/06/20 20:55 99 H 163/73 H 12/06/20 18:01 36.9 C 78 18 12/06/20 14:45 101 H 142/63 H 12/06/20 14:30 97 H 125/63 12/06/20 14:15 98 H 120/59 L 12/06/20 14:00 36.9 C 99 H 145/70 H 12/06/20 13:53 36.9 C 12/06/20 13:45 98 H 135/67 BP BP Pulse Ox 12/07/20 13:33 106/50 L 95 12/07/20 13:25 115/51 L 94 12/07/20 13:15 108/49 L 96 12/07/20 13:05 111/49 L 96 12/07/20 12:58 114/48 L 97 12/07/20 07:39 126/70 96 12/07/20 03:52 107/61 90 12/06/20 23:59 12/06/20 23:07 112/58 L 91 12/06/20 20:55 12/06/20 18:01 147/73 H 94 12/06/20 14:45 93 12/06/20 14:30 91 12/06/20 14:15 93 12/06/20 14:00 95 12/06/20 13:53 12/06/20 13:45 93 Pain Intensity Left Lower Abdomen: Pain Intensity: 2 Transfer of Care Handoff Completed per policy Notes Mental Status: alert / awake / arousable Patient Amnestic to Procedure: Yes Nausea / Vomiting: adequately controlled Pain: adequately controlled Airway Patency, RR, SpO2: stable & adequate BP & HR: stable & adequate Hydration State: stable & adequate Anesthetic Complications: no major complications apparent and Pt Satisfied with anesthetic care Notes: The patient is awake and comfortable. His vital signs are stable.
--- NOTE | 2020-12-07 13:40 | GI REPORT ---
Patient Name: Judith Crockett Procedure Date: 12/07/2020 12:15 PM Date of : 1940 Admit Type: Inpatient Age: 79 Gender: Male Attending MD: Ravinder Corrigan MD Procedure: ERCP Providers: Ravinder Corrigan MD Referring MD: Stacy Heller, Joseph Mccall MD Indications: Follow-up of ascending cholangitis Medicines: General Anesthesia Complications: No immediate complications. Estimated Blood Loss: Estimated blood loss: none. Procedure: Pre-Anesthesia Assessment: - Prior to the procedure, a History and Physical was performed, and patient medications, allergies and sensitivities were reviewed. The patient's tolerance of previous anesthesia was reviewed. - The risks and benefits of the procedure and the sedation options and risks were discussed with the patient. All questions were answered and informed consent was obtained. - Patient identification and proposed procedure were verified prior to the procedure by the physician and the nurse. The procedure was verified in the procedure room. - Pre-procedure physical examination revealed no contraindications to sedation. After obtaining informed consent, the scope was passed under direct vision. Throughout the procedure, the patient's blood pressure, pulse, and oxygen saturations were monitored continuously. The Scope was introduced through the mouth, and advanced to the duodenum and used to inject contrast into the bile duct. The ERCP was accomplished without difficulty. The patient tolerated the procedure well. Findings: The window tinter film was normal. The esophagus was successfully intubated under direct vision. The scope was advanced to a normal major papilla in the descending duodenum without detailed examination of the pharynx, larynx and associated structures, and upper GI tract. The upper GI tract was grossly normal. The major papilla was located partially within a diverticulum. A 0.025 inch x 270 cm angled Visiglide wire was passed into the biliary tree. The Fusion OMNI sphincterotome was passed over the guidewire and the bile duct was then deeply cannulated. Contrast was injected. I personally interpreted the bile duct images. Ductal flow of contrast was adequate. Image quality was adequate. Contrast extended to the main bile duct. Opacification of the entire biliary tree except for the gallbladder was successful. The maximum diameter of the ducts was 10 mm. There was no filling of the left main hepatic duct. Biliary sphincterotomy was made with a monofilament traction (standard) sphincterotome using ERBE electrocautery. There was no post-sphincterotomy bleeding. The biliary tree was swept with a 12 mm balloon starting at the bifurcation. Sludge was swept from the duct. One stone was removed. No stones remained. The left hepatic duct duct was then selectively cannulated with guidewire and extraction balloon. The duct was swept and sludge removed. No stenosis seen. One 7 Fr by 14 cm transpapillary plastic biliary stent with a single external flap and a single internal flap was placed into the left hepatic duct. Bile flowed through the stent. The stent was in good position. Indomethacin 100 mg was given via suppository to decrease the risk of post-ERCP pancreatitis (PEP). PD was not cannulated. Impression: - Choledocholithiasis was found. Complete removal was accomplished by biliary sphincterotomy and balloon extraction. - One plastic biliary stent was placed into the left hepatic duct. Recommendation: - Return patient to [facility] for ongoing care. - Repeat ERCP in 4 weeks to remove stent. - Proceed with Cholecystectomy. - Complete a 7 daus course of ABx. Ravinder Corrigan MD 12/07/2020 1:39:49 PM This report has been signed electronically. Note Initiated On: 12/07/2020 12:15 PM Number of Addenda: 0 I attest to the content of the Intraoperative Record and orders documented therein, exceptions below {[id number]}
[2020-12-07] MEDS ORDERED: GLUCAGON FOR INJ 1 MG VIAL ONE (13:50)
[2020-12-07] MEDS: ENOXAPARIN INJ 30 MG/0.3 ML SYR SQ SCH (17:03)
--- NOTE | 2020-12-07 17:18 | Electrocardiogram Report ---
Test Reason : Blood Pressure : / mmHG Vent. Rate : 085 BPM Atrial Rate : 085 BPM P-R Int : 152 ms QRS Dur : 100 ms QT Int : 400 ms P-R-T Axes : 066 024 057 degrees QTc Int : 476 ms Normal sinus rhythm Incomplete right bundle branch block Inferior infarct When compared with ECG of 06-DEC-2020 10:25, No significant change was found Confirmed by Dayday Galvez ([id number]) on 12/07/2020 5:17:30 PM Referred By: REFERRED SELF Confirmed By:Dayday Galvez
--- NOTE | 2020-12-07 19:01 | Fluoroscopy Report ---
FL ERCP biliary ductal CLINICAL HISTORY: ERCP IN OR COMPARISON STUDY: MRCP 12/07/2020. FLUOROSCOPY TIME: 2 minutes and 45 seconds. FINDINGS: 14 fluoroscopic spot image of the right upper quadrant submitted. The ampulla was cannulate d and contrast injected into the common bile duct. The common bile duct is normal in course and calib er. No filling defects within the common bile duct. There is irregularity of the left intrahepatic bi le ducts. A balloon sweep was performed. This is followed by placement of a left common bile duct crystal nt which extends into the left intrahepatic bile ducts. IMPRESSION: Fluoroscopy provided for ERCP as described above. ACT 112: Negative or not required by law. Electronically signed by: Jerry Yeager M.D. 12/07/2020 6:59 PM
[2020-12-07] MEDS: TAMSULOSIN HCL 0.4 MG CAP PO SCH (20:16)
[2020-12-07] MEDS: oxyCODONE/ACETAMINOPHEN 5mg/325mg TAB PO PRN (23:05)
--- NOTE | 2020-12-07 23:29 | Electrocardiogram Report ---
Test Reason : Blood Pressure : / mmHG Vent. Rate : 072 BPM Atrial Rate : 072 BPM P-R Int : 156 ms QRS Dur : 110 ms QT Int : 430 ms P-R-T Axes : 058 007 044 degrees QTc Int : 470 ms Normal sinus rhythm Possible Inferior infarct , age undetermined Cannot rule out Anterior infarct , age undetermined Incomplete right bundle branch block Abnormal ECG When compared with ECG of 06-DEC-2020 18:46, No significant change was found Confirmed by Dayday Galvez ([id number]) on 12/07/2020 11:28:46 PM Referred By: REFERRED SELF Confirmed By:Dayday Galvez
--- NOTE | 2020-12-07 23:40 | Electrocardiogram Report ---
Test Reason : Blood Pressure : / mmHG Vent. Rate : 088 BPM Atrial Rate : 088 BPM P-R Int : 152 ms QRS Dur : 100 ms QT Int : 386 ms P-R-T Axes : 063 021 033 degrees QTc Int : 467 ms Normal sinus rhythm RSR' or QR pattern in V1 suggests right ventricular conduction delay Possible Inferior infarct (cited on or before 07-DEC-2020) Abnormal ECG When compared with ECG of 07-DEC-2020 06:17, No significant change was found Confirmed by Dayday Galvez ([id number]) on 12/07/2020 11:40:01 PM Referred By: REFERRED SELF Confirmed By:Dayday Galvez
[2020-12-08] MEDS: PIPERACILLIN/TAZOBACTAM 3.375 GM in DEXTROSE 5% 100 ML IV SCH ×3 (00:47→16:09)
[2020-12-08] MEDS: LEVOTHYROXINE SODIUM 150 MCG TABLET PO SCH (06:14)
[2020-12-08] MEDS: SERTRALINE HCL 50 MG TABLET PO SCH (07:57)
[2020-12-08] MEDS: ASPIRIN 81 MG ECTAB PO SCH ×2 (07:57→20:02)
[2020-12-08] MEDS: VERAPAMIL HCL 180 MG TABCR PO SCH (07:57)
[2020-12-08] MEDS: LOSARTAN POTASSIUM 50 MG TAB PO SCH (07:58)
[2020-12-08] MEDS: ADVANCED PROBIOTIC 1250 MG CAPSULE PO SCH (07:58)
[2020-12-08] MEDS: FAMOTIDINE 20 MG TAB PO SCH (07:59)
[2020-12-08] MEDS: TRIAMCINOLONE ACET NASAL SPRAY 10.8ML BTL SCH (07:59)
[2020-12-08] MEDS: ATORVASTATIN 40 MG TAB PO SCH (07:59)
[2020-12-08] MEDS: FLUTICASONE/VILANTEROL 100/25MCG 14 PUFFS/INHALER INH SCH (08:05)
[2020-12-08] MEDS: POTASSIUM CHLORIDE CRTAB 20 MEQ TABCR PO SCH (08:06)
[2020-12-08 08:28] LABS: Hematocrit (blood only) 37.2 % (42-52); Hemoglobin 12.8 g/dL (14.0-18.0); Mean Corpuscular Hemoglobin 30.8 pg (25-34); Mean Corpuscular Hgb Conc 34.4 g/dL (32-36); Mean Corpuscular Volume 89.6 fL (80-100); Mean Platelet Volume 11.6 fL (7.4-10.4); Platelet Count 117 K/uL (130-400); RDW Coefficient of Variation 13.8 % (11.5-14.5); RDW Standard Deviation 45.9 fL (36.4-46.3); Red Blood Count 4.15 M/uL (4.7-6.1); White Blood Count 10.49 K/uL (4.8-10.8)
[2020-12-08 09:04] LABS: Albumin Level 2.5 gm/dl (3.4-5.0); BUN Creatinine Ratio 38.1 (10-20); Calcium 8.3 mg/dl (8.5-10.1); Creatinine Clr Calc Pharmacy 64.4 ml/min; Est GFR (African American) 80.8 ml/min; Est GFR (Non-African American) 69.7 ml/min; Potassium 3.6 mmol/L (3.5-5.1)
[2020-12-08 09:11] LABS: Albumin Globulin Ratio 0.8 (0.9-2); Bilirubin,Total 1.3 mg/dl (0.2-1); Total Protein 5.5 gm/dl (6.4-8.2)
--- NOTE | 2020-12-08 12:47 | Progress Note ---
Date of Service pt feels better, less abdominal pain, no nausea, no vomiting, I reviewed pt's H/P, labs, CT scan and ERCP, study with pt, December 08, 2020 Assessment & Plan (1) History of pulmonary embolism: will plan on DVT prophylaxis with lovenox/ SCD's (2) Prostate cancer: s/p seed placement. CT scan concerning for development of sclerotic metastasis - discussed with pt and advised f/u with oncology (3) Acute cholecystitis: Continues on IV abx. (4) Elevated liver function tests: Concerning that his liver tests have increased overnight. Given clinical scenario of RUQ pain and fever, worrisome for ascending cholangitis. CT scan did not show stones or sludge so we discussed checking a RUQ U/S and MRCP to better evaluate. Would recommend GI consult. Should he need a ERCP, I had discussed with Dr. Robyn Heller, who could perform it either later today or tomorrow. Will defer to GI. Explained that he will likely still need a cholecystectomy but timing will be determined based on above results. Reviewed with Dr. Fagan. (5) Coronary atherosclerosis of [place] coronary artery: Troponin's elevated. Await cardiology eval to assess perioperative risk. Admission and Anticipated Discharge Date Admission Date: December 07, 2020 Supervising Physician Co-Signing Physician Notes Care coordinated with Jaelyn Hightower PA-C Agree with above note. Patient seen and examined. Please refer to her notes for full details. Vital signs reviewed. Physical exam: General exam: Alert and oriented. Not in acute distress. CVS: S1 and S2 heard, regular rate and rhythm, no murmurs. RS: Clear to auscultation, no wheezing or crackles. ABD: Soft, bowel sounds present, nontender, no distention. CONFERENCE SERVICES COORDINATOR: Nonfocal. EXT: No edema, no erythema. Labs: Reviewed. Assessment and plan: 79M With hx of cad s/p stent s/p cabg, asthma, hx of prostrate cancer presents with abdominal singer, n/v and chills. temp spike in ER. Patient developed abdominal discomfort last tuesday when he ate hamburger but it subsided and again started to day Am. Denies any chest pain or sob. Says not feeling good. Hemodynamics stable. Acute cholecystitis on zosyn fluids npo surgery on board cardiology consulted for pre op as troponin slightly elevated though in normal range EKG no new changes will trend CE will monitor in med/tele [place] currently stable home inhalers. Hx of cad s/p cabg continue aspirin, statin cardio consult for optimization prior to surgery Other diagnosis and plan of care as per Jaelyn Hightower PA-C. Morales das MD. 12/08/2020 12:49PM Dr. Key Assessment and plan: 79M With hx of cad s/p stent s/p cabg, asthma, hx of prostrate cancer presents with abdominal singer, n/v and chills. temp spike in ER. Patient developed abdominal discomfort last Tuesday when he ate hamburger but it subsided and again started to day Am. Denies any chest pain or sob. Says not feeling good. Hemodynamics stable. I recommend to do laparoscopic cholecystectomy, possible open or cholangiogram, tomorrow, D/W benefits, risks and alternatives of the surgery, with pt and his ( I called Angela Crockett [phone]), the risks - infection, bleeding, injury other organs,NV, DVT, stroke, , they understood, they agree with the surgery, I answered all questions, Subjective Pt was seen and examined for follow up of RUQ abdominal pain Lying in bed with discomfort Pt said that he feels nauseated He said that the pain med seems to help Denies any chest pain, palpitation, dizziness and SOB Physical Exam Constitutional: WD/WN, vitals as above well developed and well nourished Eyes: PERRL, conjunctivae normal, anicteric sclerae Neck: trachea midline, no thyromegaly Respiratory: normal respiratory effort, lungs clear to auscultation normal respiratory effort Cardiovascular: RRR, no murmur, no edema Rate/Rhythm: regular rate and regular rhythm Gastrointestinal (Abdomen): normal bowel sounds, soft, nontender, no hepatosplenomegaly Percussion/Palpation: abdomen soft Musculoskeletal: no cyanosis or clubbing, extremities motor strength 5/5 Neurologic: awake Psychiatric: Orientation: alert and oriented x 3 Results & Data ([facility]) Vital Signs (Past 12 Hours) Vital Signs Temp Pulse Pulse Pulse Resp BP BP 12/08/20 11:55 36.4 C L 57 L 18 99/57 L 12/08/20 08:01 36.3 C L 69 18 138/69 12/08/20 08:00 62 12/08/20 04:01 36.4 C L 69 18 131/66 Pulse Ox 12/08/20 11:55 94 12/08/20 08:01 95 12/08/20 08:00 12/08/20 04:01 93 Laboratory Results Abnormal lab results 12/08/20 12/08/20 Range/Units 08:01 08:01 RBC 4.15 L (4.7-6.1) M/uL Hgb 12.8 L (14.0-18.0) g/dL Hct 37.2 L (42-52) % Plt Count 117 L (130-400) K/uL MPV 11.6 H (7.4-10.4) fL Chloride 112 H (98-107) mmol/L BUN 39 H (7-18) mg/dl BUN/Creatinine Ratio 38.1 H (10-20) Glucose 119 H (70-99) mg/dl Calcium 8.3 L (8.5-10.1) mg/dl Total Bilirubin 1.3 H D (0.2-1) mg/dl AST 92 H (15-37) U/L ALT 192 H (12-78) U/L Total Protein 5.5 L (6.4-8.2) gm/dl Albumin 2.5 L (3.4-5.0) gm/dl Albumin/Globulin Ratio 0.8 L (0.9-2) Diagnostic Findings ABDOMEN AND PELVIS CT WITH IV CONTRAST CT DOSE: 695.77 mGy.cm HISTORY: Acute left-sided abdominal pain with fever left pain, fever TECHNIQUE: Multiaxial CT images of the abdomen and pelvis were performed following the IV administration of 87 cc of Optiray, A dose lowering technique was utilized adhering to the principles of ALARA. COMPARISON STUDY: CT abdomen and pelvis 10/31/2018, CT abdomen pelvis 02/03/2011. FINDINGS: Prior median sternotomy. Coronary artery calcifications. Trace right pleural effusion. Subsegmental bibasilar atelectasis/scarring with mild bronchiectasis. Subsegmental tree-in-bud nodules of the basal right lower lobe suggest infectious or inflammatory bronchiolitis. There is no pneumatosis or pneumoperitoneum. The spleen, mildly atrophic pancreas and adrenal glands are unremarkable. Mild gallbladder distention with associated gallbladder wall thickening and trace pericholecystic edema. Mild intrahepatic biliary ductal prominence. The common bile duct measures up to 8 mm. There are a few scattered hepatic hypodensities measuring up to 1.7 cm within the left hepatic lobe suggestive of probable cysts. A right-sided renal sinus cysts redemonstrated measuring 5.2 cm. There may be a few punctate calculi of the left kidney. No ureteral calculi or hydronephrosis. Brachytherapy seeds of the prostate. Urinary bladder wall thickening and perivesicular stranding with partial distention. Extensive atherosclerotic plaque the abdominal aorta. No aneurysm. Small duodenal diverticulum. Colonic diverticulosis without acute diverticulitis. The appendix is not visualized. No CT evidence of acute appendicitis. Tiny fat filled periumbilical hernia, diastases of 1.5 cm. Degenerative changes of the spine, pelvis and hips. There is a 9 mm sclerotic lesion of the left sacrum on image 325, previously 5 mm. 5 mm sclerotic lesion of the left iliac bone on image 309 previously measured 4 mm. Unchanged subcentimeter sclerotic focus of the left sacrum on image 295. Unchanged subcentimeter sclerotic focus involves the L2 vertebral body additional scattered punctate sclerotic foci of the pelvis are unchanged. 5 mm sclerotic lesion about the lateral aspect of the right seventh rib on image 4, previously 4 mm. IMPRESSION: 1. Gallbladder distention with associated wall thickening and trace pericholecystic edema. Correlate with clinical presentation to exclude acute cholecystitis. 2. Prostamegaly with brachy therapy seeds. Urinary bladder wall thickening may be secondary to chronic bladder outlet obstruction or cystitis. Correlate with urinalysis. 3. Colonic diverticulosis without acute diverticulitis. 4. No bowel obstruction or bowel wall thickening. 5. Several subcentimeter sclerotic foci measuring up to 9 mm within the left sacrum are all new from 2011 and several of which have mildly increased in size from 2019, suspicious for sclerotic metastasis. ACT 112: Negative or not required by law.
--- NOTE | 2020-12-08 13:34 | Hospitalist Progress Note ---
Date of Service December 08, 2020 Assessment & Plan (1) Acute cholecystitis: Present on admission with RUQ abdominal pain associated with nausea CT abd/pelvis showed gallbladder distention with associated wall thickening and trace pericholecystic edema. Surgery on board Continue IV abx with Zosyn and IVF Plan for laparoscopic cholecystectomy and possible open or cholangiogram tomorrow Continue pain management Starting on clear liquid diet for today Will make NPO after midnight (2) Cholangitis: (3) Elevated liver function tests: Liver enzymes worsening with AST 352, ALT 333 and ALK 153 MRCP showed distended and mildly thickened gallbladder. There is a small amount of layering sludge/stones within the neck of the gallbladder. In addition, there is focal abrupt cut off within the mid cystic duct. This could represent small stones within the cystic duct. Mild to moderate left-sided intrahepatic bile duct dilatation with an 11 mm filling defect seen within the proximal left hepatic duct and mild focal narrowing at the origin of the left extra hepatic bile duct. Gastro consulted to eval for ERCP ERCP performed by Dr. Corrigan with Choledocholelithiasis was found. Complete removal was accomplished by biliary sphincterotomy and balloon extraction. One plastic biliary stent was placed in the left hepatic duct. Follow-up with GI in 4 weeks for ERCP to remove stent LFT trending down with AST 92 and ALT 192 Continue antibiotic for 7 days course (4) Elevated troponin: (5) Coronary atherosclerosis of [place] coronary artery: S/P CABG x 2 on 2018 Possible due to myocardial strain in the setting of his acute noncardiac illness. Troponin peaked at 0.4 75, then trending down to 0.293 EKG showed no acute ischemic changes Cardiology on board Echocardiogram performed today revealed normal LV and RV function, no regional wall motion abnormalities, LVEF 60 to 65%. OK from Cardiology to proceed to operative intervention for acute cholecystitis No additional cardiac testing needing Continue aspirin and verapamil without interruption. Continue losartan and atorvastatin, but if Liver enzymes worsening, will hold statin Continue monitor (6) HTN (hypertension): BP stable Continue Verapamil and Losartan Continue monitor BP (7) Asthma: Continue Neb treatment Stable (8) Hypokalemia: K 3.6 today Continue monitor BMP (9) Prostate cancer: (10) BPH (benign prostatic hyperplasia): Continue home dosing of Flomax. Patient noted to have possible bony metastases on CT of the abd/pelvis. This was discussed with the patient. He will require outpatient follow up with PCP and Hematology/Oncology for further workup and management. (11) Hypothyroidism: Continue home dosing of levothyroxine (12) History of pulmonary embolism: (13) DVT prophylaxis: Per surgical team Thank you for this consultation. We will follow the patient with you during their hospital stay. You can reach a member of the [facility] Hospitalist Team 07/02 via pager @ [phone] or via [facility] Admission and Anticipated Discharge Date Admission Date: December 07, 2020 Subjective Pt was seen and examined for follow up of RUQ abdominal pain Lying in bed with no distress. He said that he is hungry Pt said that his abdominal pain improves and does not feel nauseated Denies any chest pain, palpitation, dizziness and SOB Review of Systems Review of Systems: All systems reviewed & are unremarkable except as noted in Subjective Physical Exam Physical Exam: General- No acute distress Head- atraumatic Eyes- PERRL, EOMI, ENT- oropharynx clear Neck- supple, no JVD Lungs- clear to auscultation Heart- regular rhythm; no murmur Abdomen- +mild abdominal pain, Nondistended, umbilical hernia Extremities- no calf tenderness Neuro- alert, oriented x 3; PERRL, EOMI; no facial palsy; no dysarthria Skin- warm & dry Results & Data Results & Data ([facility]) Vital Signs (Past 12 Hours) Vital Signs Temp Pulse Pulse Pulse Resp BP BP 12/08/20 11:55 36.4 C L 57 L 18 99/57 L 12/08/20 08:01 36.3 C L 69 18 138/69 12/08/20 08:00 62 12/08/20 04:01 36.4 C L 69 18 131/66 Pulse Ox 12/08/20 11:55 94 12/08/20 08:01 95 12/08/20 08:00 12/08/20 04:01 93
[2020-12-08] MEDS: LACTATED RINGER'S 1,000 ML IV SCH (13:37)
--- NOTE | 2020-12-08 13:48 | Cardiology Progress Note ---
Date of Service December 08, 2020 Assessment & Plan (1) Preoperative cardiovascular examination: (2) Troponin I above reference range: (3) Status post double vessel coronary artery bypass: (4) Acute cholecystitis: Patient has a history of multivessel coronary heart disease with CABG x2, COATS to LAD, SVG to circumflex obtuse marginal territory in June,. He presents with clinical symptoms suggestive of acute cholecystitis, supported by findings on CT of the abdomen pelvis. His presenting symptoms are not reminiscent of his previous anginal equivalent. I believe his troponin I elevation, which is mild and flat, is due to myocardial strain in the setting of his acute noncardiac illness. He notes no recent anginal symptoms at home, describes a stable degree of exertional shortness of breath that has not changed. Sinus tachycardia noted when he was in distress yesterday which is since resolved. His EKG reveals stable findings compared to his previous post CABG outpatient EKG tracings. Echocardiogram performed today revealed normal LV and RV function, no regional wall motion abnormalities, LVEF 60 to 65%. Would recommend proceeding to operative intervention for acute cholecystitis as indicated without further cardiac testing. Would prefer if patient remains on aspirin without interruption. It is noted that he has been intolerant of beta-araceli therapy in the past, and that is why he is on verapamil which is to be continued during the perioperative interval as this is losartan and atorvastatin. I would estimate his risk of perioperative cardiac complication is low. We'll follow postoperatively. Admission and Anticipated Discharge Date Admission Date: December 07, 2020 Subjective Patient seen and examined with surgical team at bedside. Chart reviewed. No cardiac complaints overnight. Denies chest pain, shortness of breath, palpitations, lightheadedness, dizziness or syncope. Review of Systems Review of Systems: All systems reviewed & are unremarkable except as noted in HPI & below Physical Exam Physical Exam: General: Awake, alert and oriented x 3. No acute distress. HEENT: Normocephalic, atraumatic. Pupils equal, round and reactive to light and accommodation. Extraocular muscles are intact. Anicteric sclera. Moist mucous membranes. Neck: No JVD. No bruit. Cardiovascular: Regular. Positive S-4. Normal S-1 and S-2. No S-3. No murmurs or rubs. Pulmonary: Clear to auscultation B/L. No rales, rhonchi or wheezing Abdomen: Bowel sounds x 4, soft. No rebound, guarding or tenderness. No organomegaly. Extremities: No clubbing, cyanosis or edema. +2 pedal pulses bilaterally. Skin: Warm and dry. Results & Data ([facility]) Vital Signs (Past 12 Hours) Vital Signs Temp Pulse Pulse Pulse Resp BP BP 12/08/20 11:55 36.4 C L 57 L 18 99/57 L 12/08/20 08:01 36.3 C L 69 18 138/69 12/08/20 08:00 62 12/08/20 04:01 36.4 C L 69 18 131/66 Pulse Ox 12/08/20 11:55 94 12/08/20 08:01 95 12/08/20 08:00 12/08/20 04:01 93
--- NOTE | 2020-12-08 15:34 | Electrocardiogram Report ---
Test Reason : Blood Pressure : / mmHG Vent. Rate : 056 BPM Atrial Rate : 053 BPM P-R Int : 000 ms QRS Dur : 098 ms QT Int : 490 ms P-R-T Axes : 000 048 079 degrees QTc Int : 472 ms Probable Junctional rhythm Incomplete right bundle branch block Abnormal ECG When compared with ECG of 07-DEC-2020 09:30, Junctional rhythm has replaced Sinus rhythm Vent. rate has decreased BY 32 BPM Confirmed by Kevin Carrizales ([id number]) on 12/08/2020 3:34:00 PM Referred By: REFERRED SELF Confirmed By:Kevin Carrizales
[2020-12-08] MEDS: ONDANSETRON INJ 2 MG/ML 2 ML VIAL IV PRN (16:10)
[2020-12-08] MEDS: MoRPHine SULFATE 2 MG/ML CARP IV PRN (20:01)
[2020-12-08] MEDS: TAMSULOSIN HCL 0.4 MG CAP PO SCH (20:02)
[2020-12-09] MEDS: PIPERACILLIN/TAZOBACTAM 3.375 GM in DEXTROSE 5% 100 ML IV SCH ×3 (00:36→17:51)
[2020-12-09] MEDS: LACTATED RINGER'S 1,000 ML IV SCH ×2 (05:29→23:20)
[2020-12-09] MEDS: LEVOTHYROXINE SODIUM 137 MCG TABLET PO SCH (05:30)
[2020-12-09] MEDS: ONDANSETRON INJ 2 MG/ML 2 ML VIAL IV PRN ×2 (05:39→13:46)
[2020-12-09 07:45] LABS: Hemoglobin 12.4 g/dL (14.0-18.0); Mean Corpuscular Hemoglobin 30.5 pg (25-34); Mean Corpuscular Hgb Conc 34.4 g/dL (32-36); Mean Corpuscular Volume 88.7 fL (80-100); Mean Platelet Volume 11.9 fL (7.4-10.4); Platelet Count 120 K/uL (130-400); RDW Coefficient of Variation 13.7 % (11.5-14.5); RDW Standard Deviation 45.2 fL (36.4-46.3); Red Blood Count 4.06 M/uL (4.7-6.1); White Blood Count 10.22 K/uL (4.8-10.8)
[2020-12-09] MEDS: MoRPHine SULFATE 4 MG/ML 1 ML CARP\\VIAL IV PRN ×2 (08:01→14:54)
[2020-12-09] MEDS: FLUTICASONE/VILANTEROL 100/25MCG 14 PUFFS/INHALER INH SCH (08:02)
[2020-12-09] MEDS: ASPIRIN 81 MG ECTAB PO SCH ×2 (08:09→21:21)
[2020-12-09] MEDS: FAMOTIDINE 20 MG TAB PO SCH (08:09)
[2020-12-09] MEDS: LOSARTAN POTASSIUM 50 MG TAB PO SCH (08:09)
[2020-12-09] MEDS: VERAPAMIL HCL 180 MG TABCR PO SCH (08:10)
[2020-12-09] MEDS: ATORVASTATIN 40 MG TAB PO SCH (08:10)
[2020-12-09] MEDS: TRIAMCINOLONE ACET NASAL SPRAY 10.8ML BTL SCH (08:10)
[2020-12-09] MEDS: SERTRALINE HCL 50 MG TABLET PO SCH (08:10)
[2020-12-09] MEDS: ADVANCED PROBIOTIC 1250 MG CAPSULE PO SCH (08:11)
[2020-12-09] MEDS: POTASSIUM CHLORIDE CRTAB 20 MEQ TABCR PO SCH (08:12)
[2020-12-09 09:00] LABS: Albumin Level 2.5 gm/dl (3.4-5.0); BUN Creatinine Ratio 39.3 (10-20); Calcium 7.9 mg/dl (8.5-10.1); Creatinine Clr Calc Pharmacy 86.5 ml/min; Est GFR (African American) 101.5 ml/min; Est GFR (Non-African American) 87.5 ml/min; Potassium 3.3 mmol/L (3.5-5.1)
[2020-12-09 09:03] LABS: Bilirubin,Total 1.1 mg/dl (0.2-1); Globulin 2.6 gm/dl (2.5-4.0); Total Protein 5.1 gm/dl (6.4-8.2)
[2020-12-09] MEDS ORDERED: ceFAZolin 2000MG 2,000 MG/15 ML SYR IV ONE (10:41)
--- NOTE | 2020-12-09 10:41 | History & Physical Bridge Note ---
Date of Service December 09, 2020 History & Physical Bridge Note I have examined the patient, reviewed the History & Physical and in the interval since the performance of the History & Physical I have noted the following changes of clinical significance: no changes noted Supervising Physician Co-Signing Physician Notes Care coordinated with Jaelyn Hightower PA-C Agree with above note. Patient seen and examined. Please refer to her notes for full details. Vital signs reviewed. Physical exam: General exam: Alert and oriented. Not in acute distress. CVS: S1 and S2 heard, regular rate and rhythm, no murmurs. RS: Clear to auscultation, no wheezing or crackles. ABD: Soft, bowel sounds present, nontender, no distention. PRESSING MACHINE OPERATOR: Nonfocal. EXT: No edema, no erythema. Labs: Reviewed. Assessment and plan: 79M With hx of cad s/p stent s/p cabg, asthma, hx of prostrate cancer presents with abdominal singer, n/v and chills. temp spike in ER. Patient developed abdominal discomfort last tuesday when he ate hamburger but it subsided and again started to day Am. Denies any chest pain or sob. Says not feeling good. Hemodynamics stable. Acute cholecystitis on zosyn fluids npo surgery on board cardiology consulted for pre op as troponin slightly elevated though in normal range EKG no new changes will trend CE will monitor in med/tele [place] currently stable home inhalers. Hx of cad s/p cabg continue aspirin, statin cardio consult for optimization prior to surgery Other diagnosis and plan of care as per Jaelyn Hightower PA-C. Morales das MD. 12/08/2020 12:49PM Dr. Key Assessment and plan: 79M With hx of cad s/p stent s/p cabg, asthma, hx of prostrate cancer presents with abdominal singer, n/v and chills. temp spike in ER. Patient developed abdominal discomfort last Tuesday when he ate hamburger but it subsided and again started to day Am. Denies any chest pain or sob. Says not feeling good. Hemodynamics stable. I recommend to do laparoscopic cholecystectomy, possible open or cholangiogram, tomorrow, D/W benefits, risks and alternatives of the surgery, with pt and his ( I called Angela Keira [phone]), the risks - infection, bleeding, injury other organs,[place], DVT, stroke, , they understood, they agree with the surgery, I answered all questions,
[2020-12-09] MEDS ORDERED: ATROPINE SULFATE 0.1 MG/ML 10ML SYR IV PRN (11:23)
[2020-12-09] MEDS ORDERED: MEPERIDINE HCL 25 MG/ML CARP/VIAL IV PRN (11:23)
[2020-12-09] MEDS ORDERED: HYDROmorphone INJ 1 MG/ML SYRINGE IV PRN (11:23)
[2020-12-09] MEDS ORDERED: fentaNYL citrate 100 MCG/2 ML VIAL IV PRN (11:23)
[2020-12-09] MEDS ORDERED: ePHEDrine sulfate 50 MG/ML AMP IV PRN (11:23)
[2020-12-09] MEDS ORDERED: LABETALOL HCL IV 5 MG/ML 20ML IV PRN (11:23)
[2020-12-09] MEDS ORDERED: PHENYLEPHRINE 100MCG/ML 5ML SYR IV PRN (11:23)
[2020-12-09] MEDS ORDERED: ONDANSETRON INJ 2 MG/ML 2 ML VIAL IV PRN (11:23)
[2020-12-09] MEDS ORDERED: BUPIVACAINE 0.5 % 5 MG/1 ML MPF 30ML VIAL ONE (11:25)
[2020-12-09] MEDS ORDERED: LIDOCAINE 1% LOCAL 20 ML VIAL ONE (11:25)
[2020-12-09] MEDS ORDERED: BACITRACIN OINT 15 GM TUBE ONE (11:25)
--- NOTE | 2020-12-09 11:26 | Anesthesiology Consultation ---
Date of Service December 09, 2020 The patient underwent an ERCP on 12/07/20 and tolerated it well. He was seen by cardiology yesterday who recommended to proceed with surgery. Assessment & Plan (1) Encounter for pre-operative examination: Chart Review Chart Review: Acceptable Risk for Surgery and Patient NOT seen in Pre Admission Testing Consults Requested none History Surgery Operation Date: 12/06/20 15:30 Proposed Procedures p Laparoscopic Cholecystectomy - Stacy Heller MD Operation Date: 12/07/20 12:30 Proposed Procedures p Endoscopic Retrograde Cholangiopancreato(Not Applicable) - Ravinder Corrigan MD Operation Date: 12/09/20 11:05 Proposed Procedures p Laparoscopic Cholecystectomy - Praful Key MD s Umbilical Hernia Repair - Praful Key MD Height/Weight Height: 5 ft 8 in Weight: 87.7 kg Allergies Allergy/AdvReac Type Severity Reaction Status Date / Time codeine AdvReac Mild N/V Verified 12/06/20 13:00 Medications Home Medications Medication Instructions Recorded Confirmed Last Taken aspirin [Aspir-Low] 81 mg PO BID 10/31/18 12/06/20 12/05/20 guaifenesin [Mucinex] 600 mg PO Q12H PRN 10/31/18 12/06/20 07/12/19 levothyroxine 137 mcg PO 4XWK 10/31/18 12/06/20 07/24/19 levothyroxine [Synthroid] 150 mcg PO 3XWK 10/31/18 12/06/20 07/23/19 potassium chloride [Klor-Con M10] 20 meq PO QAM 10/31/18 12/06/20 07/24/19 sertraline 50 mg PO DAILY 10/31/18 12/06/20 12/05/20 tamsulosin [Flomax] 0.4 mg PO HS 10/31/18 12/06/20 12/05/20 triamcinolone acetonide 1 spray INTRANASAL DAILY 10/31/18 12/06/20 07/24/19 acetaminophen 500 mg PO UD PRN 07/12/19 12/06/20 Unknown albuterol sulfate 2 puff INHALATION Q6H PRN 07/12/19 12/06/20 Unknown fluticasone propion-salmeterol 1 inh INHALATION BID 07/12/19 12/06/2020 [Wixela Inhub] ipratropium-albuterol 3 ml INHALATION Q4H PRN 07/12/19 12/06/20 07/12/19 Probiotic 1 cap PO BID 07/24/19 12/06/20 12/05/20 meclizine 25 mg PO Q6 PRN 07/24/19 12/06/20 Unknown atorvastatin 80 mg PO DAILY 12/06/20 12/06/20 12/05/20 cholecalciferol (vitamin D3) 25 mcg PO DAILY 12/06/20 12/06/20 Unknown [Vitamin D3] famotidine 20 mg PO DAILY 12/06/20 12/06/20 12/05/20 fluticasone propion-salmeterol 1 inh INHALATION BID 12/06/20 12/06/20 Unknown [Wixela Inhub] hydrochlorothiazide 12.5 mg PO DAILY 12/06/20 12/06/20 12/05/20 losartan 100 mg PO DAILY 12/06/20 12/06/20 12/05/20 verapamil 180 mg PO DAILY 12/06/20 12/06/20 12/05/20 Active Medications Generic Name Dose Route Start Last Admin Trade Name Freq PRN Reason Stop Dose Admin Albuterol 2 puffs 12/06/20 15:46 12/07/20 22:30 Albuterol Hfa 8 Gm Inhaler INH 01/05/21 15:45 2 puffs Q6R PRN Administration Shortness Of Breath Aspirin 81 mg 12/06/20 21:00 12/09/20 08:09 Aspirin 81 Mg Ectab PO 01/05/21 20:59 Not Given BID JOHANA Atorvastatin Calcium 80 mg 12/07/20 09:00 12/09/20 08:10 Atorvastatin 40 Mg Tab PO 01/06/21 08:59 80 mg DAILY JOHANA Administration Enoxaparin Sodium 30 mg 12/06/20 17:00 12/07/20 17:03 Enoxaparin Inj 30 Mg/0.3 Ml Syr SQ 01/05/21 16:59 30 mg Q24H JOHANA Administration Famotidine 20 mg 12/07/20 09:00 12/09/20 08:09 Famotidine 20 Mg Tab PO 01/06/21 08:59 20 mg DAILY JOHANA Administration Fluticasone/Vilanterol 1 puffs 12/07/20 09:00 12/09/20 08:02 Fluticasone/Vilanterol 100/25mcg 14 Puffs/Inhaler INH 01/06/21 08:59 1 puffs DAILY JOHANA Administration Protocol Lactated Ringer's 1,000 mls @ 60 mls/hr 12/06/20 15:46 12/09/20 09:06 Lr IV 01/05/21 15:45 60 mls/hr .[id number] JOHANA Infusion Piperacillin Sod/Tazobactam 115 mls @ 28.75 mls/hr 12/06/20 17:00 12/09/20 08:15 Sod 3.375 gm/ Dextrose IV 12/16/20 16:59 28.8 mls/hr Q8H JOHANA Administration Protocol Lactobacillus Acidoph/Casei/Rhamnos 2 cap 12/07/20 09:00 12/09/20 08:11 Advanced Probiotic 1250 Mg Capsule PO 01/06/21 08:59 2 cap DAILY JOHANA Administration Protocol Levothyroxine Sodium 137 mcg 12/07/20 06:30 12/09/20 05:30 Levothyroxine Sodium 137 Mcg Tablet PO 01/06/21 06:29 137 mcg [id number] JOHANA Administration Levothyroxine Sodium 150 mcg 12/08/20 06:30 12/08/20 06:14 Levothyroxine Sodium 150 Mcg Tablet PO 01/07/21 06:29 150 mcg [id number] JOHANA Administration Losartan Potassium 100 mg 12/07/20 09:00 12/09/20 08:09 Losartan Potassium 50 Mg Tab PO 01/06/21 08:59 100 mg DAILY JOHANA Administration Morphine Sulfate 2 mg 12/06/20 15:46 12/08/20 20:01 Morphine Sulfate 2 Mg/Ml Carp IV 12/20/20 15:45 2 mg Q3H PRN Administration Pain (1,2,3,4,5) & Pre PT Morphine Sulfate 4 mg 12/06/20 15:46 12/09/20 08:01 Morphine Sulfate 4 Mg/Ml 1 Ml Carp\\Vial IV 12/20/20 15:45 4 mg Q3H PRN Administration Pain (6,7,8,9,10) Ondansetron HCl 4 mg 12/06/20 15:46 12/09/20 05:39 Ondansetron Inj 2 Mg/Ml 2 Ml Vial IV 01/05/21 15:45 4 mg Q4H PRN Administration Nausea And Vomiting Oxycodone/Acetaminophen 2 tab 12/06/20 15:46 12/07/20 23:05 Oxycodone/Acetaminophen 5mg/325mg Tab PO 12/20/20 15:45 2 tab Q4H PRN Administration SEVERE Pain (7,8,9,10) Potassium Chloride 20 meq 12/07/20 09:00 12/09/20 08:12 Potassium Chloride Crtab 20 Meq Tabcr PO 01/06/21 08:59 20 meq QAM JOHANA Administration Sertraline HCl 50 mg 12/07/20 09:00 12/09/20 08:10 Sertraline Hcl 50 Mg Tablet PO 01/06/21 08:59 50 mg DAILY JOHANA Administration Tamsulosin HCl 0.4 mg 12/06/20 21:00 12/08/20 20:02 Tamsulosin Hcl 0.4 Mg Cap PO 01/05/21 20:59 0.4 mg HS JOHANA Administration Triamcinolone Acetonide 1 sprays 12/07/20 09:00 12/09/20 08:10 Triamcinolone Acet Nasal Scott 10.8ml Btl NA 01/06/21 08:59 1 sprays DAILY JOHANA Administration Verapamil HCl 180 mg 12/07/20 09:00 12/09/20 08:10 Verapamil Hcl 180 Mg Tabcr PO 01/06/21 08:59 180 mg DAILY JOHANA Administration NPO Date Last Intake of Fluids: 12/05/20 Time Last Intake of Fluids: 19:00 Date Last Intake of Solids: 12/05/20 Time Last Intake of Solids: 19:00 Past Medical History Medical History 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 Asthma BPH (benign prostatic hyperplasia) Clostridium difficile carrier COPD (chronic obstructive pulmonary disease) Coronary atherosclerosis of [place] coronary artery 11/2018 - MARY to prox L cx, MARY x 2 to mid LAD DVT prophylaxis History of Graves' disease History of malignant melanoma of skin History of pulmonary embolism 2010 - completed Coumadin therapy HTN (hypertension) Hypertension Hypothyroidism Prostate cancer Status post seed implant Skin cancer Past Family History Family History Father Cancer Prostate and bladder Mother Stroke Breast cancer Past Surgical History Surgical History H/O rotator cuff surgery History of appendectomy History of basal cell carcinoma (BCC) excision History of colonoscopy with polypectomy Last 11/03/2016 recommend repeat in 3 years History of cystoscopy History of eye surgery History of hernia repair History of thyroidectomy, total History of vasectomy Status post double vessel coronary artery bypass 07/14/2019 Status post operation on nasal sinus "09/2002" Social History Smoking Status: Former smoker tobacco type: cigarettes Do You Dip or Chew Tobacco: No Hx Alcohol Use: Yes Alcohol type: beer and wine alcohol intake frequency: a few times a week Hx Substance Use: No substance use type: does not use Physical Exam Vital Signs Last Vital Signs Temp 36.8 C 12/09/20 11:11 Pulse 70 12/09/20 11:11 Resp 18 12/09/20 11:11 BP 152/72 H 12/09/20 11:11 Pulse Ox 93 12/09/20 11:11 Testing Laboratory Results 12/09/20 07:09 12/09/20 07:09 PT 10.7 Seconds (9.0-12.0) 12/06/20 10:36 INR 1.1 (0.9-1.1) 12/06/20 10:36 APTT 31.6 Seconds (21.0-31.0) H 12/07/20 05:36 Urine Color Yellow 12/06/20 10:46 Urine Appearance Clear (Clear) 12/06/20 10:46 Urine pH 5.0 (4.5-7.5) 12/06/20 10:46 Ur Specific [place] 1.012 (1.000-1.030) 12/06/20 10:46 Urine Protein Negative (Negative) 12/06/20 10:46 Urine Glucose (UA) Negative (Negative) 12/06/20 10:46 Urine Ketones Negative (Negative) 12/06/20 10:46 Urine Nitrite Negative (Negative) 12/06/20 10:46 Ur Leukocyte Esterase Negative (Negative) 12/06/20 10:46 12/06/20 10:36 Aerobic Blood Culture - Preliminary Blood No growth in Aerobic bottle after 48 hours. Anaerobic Blood Culture - Preliminary No growth in Anaerobic bottle after 48 hours. 12/06/20 10:38 Aerobic Blood Culture - Preliminary Blood No growth in Aerobic bottle after 48 hours. Anaerobic Blood Culture - Preliminary No growth in Anaerobic bottle after 48 hours. Electrocardiogram Date: 12/08/20 Findings: + RBBB (incomplete) Probable junctional rhythm, rate 56 Chest X-Ray Date: 12/06/20 Findings: + NAD Echocardiogram Date: 12/07/20 EF: 60-65 LV Function: normal Other Findings: + LVH (mild concentric) and + diastolic dysfunction (grade 1) RVSP 30-40 mm Hg, mild TR Other Testing 12/06/20 - Abd CT scan IMPRESSION: 1. Gallbladder distention with associated wall thickening and trace pericholecystic edema. Correlate with clinical presentation to exclude acute cholecystitis. 2. Prostamegaly with brachy therapy seeds. Urinary bladder wall thickening may be secondary to chronic bladder outlet obstruction or cystitis. Correlate with urinalysis. 3. Colonic diverticulosis without acute diverticulitis. 4. No bowel obstruction or bowel wall thickening. 5. Several subcentimeter sclerotic foci measuring up to 9 mm within the left sacrum are all new from 2011 and several of which have mildly increased in size from 2019, suspicious for sclerotic metastasis.
--- NOTE | 2020-12-09 11:30 | History & Physical Bridge Note ---
Date of Service December 09, 2020 History & Physical Bridge Note I have examined the patient, reviewed the History & Physical and in the interval since the performance of the History & Physical I have noted the following changes of clinical significance: no changes noted, pt has umbilical hernia, some time cause pain, pt wants to do open repair umbilical hernia, possible mesh at time to do laparoscopic cholecystectomy, pt signed consent, I answered all questions, Supervising Physician Co-Signing Physician Notes Care coordinated with Jaelyn Hightower PA-C Agree with above note. Patient seen and examined. Please refer to her notes for full details. Vital signs reviewed. Physical exam: General exam: Alert and oriented. Not in acute distress. CVS: S1 and S2 heard, regular rate and rhythm, no murmurs. RS: Clear to auscultation, no wheezing or crackles. ABD: Soft, bowel sounds present, nontender, no distention. ARCHITECTURAL TECHNOLOGIST: Nonfocal. EXT: No edema, no erythema. Labs: Reviewed. Assessment and plan: 79M With hx of cad s/p stent s/p cabg, asthma, hx of prostrate cancer presents with abdominal singer, n/v and chills. temp spike in ER. Patient developed abdominal discomfort last tuesday when he ate hamburger but it subsided and again started to day Am. Denies any chest pain or sob. Says not feeling good. Hemodynamics stable. Acute cholecystitis on zosyn fluids npo surgery on board cardiology consulted for pre op as troponin slightly elevated though in normal range EKG no new changes will trend CE will monitor in med/tele [place] currently stable home inhalers. Hx of cad s/p cabg continue aspirin, statin cardio consult for optimization prior to surgery Other diagnosis and plan of care as per Jaelyn Hightower PA-C. Morales das MD. 12/08/2020 12:49PM Dr. Key Assessment and plan: 79M With hx of cad s/p stent s/p cabg, asthma, hx of prostrate cancer presents with abdominal singer, n/v and chills. temp spike in ER. Patient developed abdominal discomfort last Tuesday when he ate hamburger but it subsided and again started to day Am. Denies any chest pain or sob. Says not feeling good. Hemodynamics stable. I recommend to do laparoscopic cholecystectomy, possible open or cholangiogram, tomorrow, D/W benefits, risks and alternatives of the surgery, with pt and his ( I called Angela Crockett [phone]), the risks - infection, bleeding, injury other organs,[place], DVT, stroke, , they understood, they agree with the surgery, I answered all questions,
[2020-12-09] MEDS ORDERED: ONDANSETRON INJ 2 MG/ML 2 ML VIAL ONE ×2 (11:38→12:19)
[2020-12-09] MEDS ORDERED: MIDAZOLAM HCL 1 MG/ML 2ML VIAL ONE (11:38)
[2020-12-09] MEDS ORDERED: LIDOCAINE 2% 2 ML VIAL/AMP(20MG/ML) INFIL ONE (11:38)
[2020-12-09] MEDS ORDERED: NEOSTIGMINE METHYLSULFATE 1 MG/ML 10ML VIAL ONE (11:38)
[2020-12-09] MEDS ORDERED: PROPOFOL IV EMULSION 10 MG/ML 20 ML VIAL IV ONE (11:38)
[2020-12-09] MEDS ORDERED: fentaNYL citrate 100 MCG/2 ML VIAL ONE (11:38)
[2020-12-09] MEDS ORDERED: DEXAMETHASONE SOD INJ 4 MG/ML VIAL ONE (11:38)
[2020-12-09] MEDS ORDERED: GLYCOPYRROLATE 0.2 MG/ML VIAL ONE ×2 (11:38→12:19)
[2020-12-09] MEDS ORDERED: ROCURONIUM BROMIDE 10 MG/ML 5 ML VIAL IV ONE (11:39)
[2020-12-09] MEDS ORDERED: ePHEDrine sulfate 50 MG/ML AMP ONE (12:19)
[2020-12-09] MEDS ORDERED: SODIUM CHLORIDE 0.9% INJ 10 ML VIAL ONE (12:19)
--- NOTE | 2020-12-09 13:29 | Post Operative Brief Note ---
Immediate Post Op Note v1 Date of Surgery December 09, 2020 Pre & Post Diagnosis Operation Date: 12/06/20 15:30 <No data on this case meets the specified criteria> Operation Date: 12/07/20 12:30 Pre-Op Diagnosis: acute cholecystitis Post-Op Diagnosis: acute cholecystitis Operation Date: 12/09/20 11:05 Pre-Op Diagnosis: acute cholecystitis, umbilical hernia Post-Op Diagnosis: acute cholecystitis, umbilical hernia I identified the patient and participated in the time-out.: Yes Procedure Operation Date: 12/06/20 15:30 <No data on this case meets the specified criteria> Operation Date: 12/07/20 12:30 Actual Procedures p Endoscopic Retrograde Cholangiopancreatography(Not Applicable) - Ravinder Corrigan MD Operation Date: 12/09/20 11:05 Actual Procedures p Laparoscopic Cholecystectomy(Not Applicable) - Praful Key MD s Laparoscopic Umbilical Hernia Repair - Praful Key MD Surgeon Praful Key MD Bi Data Modeler surgical first assistant Estimated Blood Loss 15 Findings Consistent with Post-Op Diagnosis Fluids 1200ml Specimens gallbladder Anesthesia Type General Complications none Disposition Accompanied Patient To Recovery: Yes Disposition: Recovery Room Overlapping Procedure I was immediately available: during the entire case.
--- NOTE | 2020-12-09 14:19 | Operative Report (OR) ---
DATE OF OPERATION: 12/09/2020 PREOPERATIVE DIAGNOSES: Acute cholecystitis, cholelithiasis, umbilical hernia. POSTOPERATIVE DIAGNOSES: Acute cholecystitis, cholelithiasis, umbilical hernia. OPERATION: Laparoscopic cholecystectomy. Open repair of umbilical hernia. SURGEON: Praful Key MD. ANESTHESIA: General. ESTIMATED BLOOD LOSS: About 15 mL FINDINGS: Significant inflammation on the gallbladder wall, gallbladder wall thickening and edema. COMPLICATIONS: None. INDICATIONS FOR THE PROCEDURE: The patient is a 79-year-old gentleman who was admitted to hospital for acute cholecystitis and the patient had ERCP done 2 days ago and I recommended to do laparoscopic cholecystectomy, possible open, possible cholangiogram and same time open repair of umbilical hernia, possible mesh. I did talk to the patient about the benefit, the risk, alternate procedure. I indicated the risks may include but not limited such as bleeding, infection, injury to other organs, hernia recurrence, myocardial infarction, DVT, stroke, even , bowel obstruction. The patient understands. He signed informed consent and I answered all questions. DETAILS OF PROCEDURE: After we identified the patient and verified the procedure, we brought the patient to the OR, put the patient in the supine position. The patient received SCD on bilateral legs to prevent DVT. Also, patient received 3.375 grams Zosyn IV for prophylactic antibiotic. The patient received general anesthesia without difficulties. Abdomen was prepped and draped in routine sterile fashion. After time-out, I injected local anesthesia by using 1% lidocaine mixed with 0.5% Marcaine just below umbilicus. Then I made a small incision just below umbilicus, mobilized the umbilicus, found the patient in the hernia sac about the 1.2 cm. Once we had completely opened the hernia sac and then we connected to Melani and then connected to the CO2 to create pneumoperitoneum. Flow rate at 6 liters per minute. Pressure not more than 14 mmHg. Once we got a nice pneumoperitoneum, we put the camera in, looked around the abdomen, normal finding on the liver. However, the gallbladder shows significant inflammation on the gallbladder wall, gallbladder wall thickening, edema, confirmed diagnosis of acute cholecystitis. Then, we put another two 5 mm trocar on the right upper quadrant and 11 trocar on the epigastric area. Once all trocars in, we used the grasper to hold the pouch of gallbladder, put in the direction to the diaphragm and then the use of Bovie to take down all omental adhesions to the gallbladder. We used another grasper to hold the pouch of gallbladder, put the lateral to expunge the triangle of Calot. The cystic duct was identified and mobilized. I put two 10 mm metal clips on the proximal cystic duct, one on the distal cystic duct and then I used a scissor for transection of cystic duct and rechecked, no active bleeding, no bile leak. Cystic artery was identified and mobilized. I put two 10 mm metal clips on the proximal cystic artery and one on the distal cystic artery and then used a scissor for transection of cystic artery. Rechecked, no active bleeding. Then we used the Bovie to take down gallbladder from liver bed. Rechecked, no active bleeding, no bile leak from liver bed. Then we removed gallbladder through the catch bag. Then we reinserted Melani trocar in, connected to CO2 to create pneumoperitoneum, again looked around the abdomen, no active bleeding, no bile leak from liver bed. Then we removed all trocar under direct vision. No active bleeding from the trocar sites. Pneumoperitoneum was released, based on the umbilical hernia the size was about 1.2 cm. I chose to permanently close by using #1 Ethibond interrupted, closed the umbilical hernia. Then, using 2-0 Vicryl, attached the umbilicus on the fascial layer and then closed the subcutaneous layer by using 2-0 Vicryl interruptedly, closed skin by using 4-0 Vicryl continuous running, closed the epigastric area incision, the 11 trocar site and fascial layer by using 0 Vicryl [id number] x2, closed subcutaneous layer by using 2-0 Vicryl interruptedly, closed skin by using 4-0 Vicryl continuous running, closed another two 5 mm trocar site the skin only by using 4-0 Vicryl. Then, we put the dressing on. The patient tolerated the procedure well. All instrument, needle, sponge count were correct x2 at the end of the case. The patient transferred to recovery room in stable condition. The specimen sent to pathology. After the procedure, I did talk to the patient about the OR finding and the procedure we did. Also, I gave him postoperative care instructions. I attest to the content of the Intraoperative Record and any orders documented therein. Any exception s are noted below.
--- NOTE | 2020-12-09 14:23 | Anesthesiology Progress Note ---
Date of Service December 09, 2020 Anesthesia Post Procedure Vital Signs Vital Signs: Temp Pulse Pulse Pulse Resp BP BP 12/09/20 14:15 58 L 18 134/62 12/09/20 14:05 67 20 125/69 12/09/20 13:55 61 17 129/60 12/09/20 13:45 66 19 133/59 L 12/09/20 13:38 36.6 C 78 20 132/58 L 12/09/20 11:29 36.6 C 64 20 117/66 12/09/20 11:11 36.8 C 70 18 152/72 H 12/09/20 08:00 56 L 12/09/20 07:33 36.8 C 84 18 122/69 12/09/20 03:01 36.4 C 65 18 154/71 H 12/08/20 22:48 36.6 C 66 18 141/69 H 12/08/20 22:19 62 12/08/20 19:21 36.5 C 58 L 20 105/58 L 12/08/20 16:00 58 L 12/08/20 15:00 36.4 C L 55 L 20 91/42 L Pulse Ox 12/09/20 14:15 93 12/09/20 14:05 90 12/09/20 13:55 92 12/09/20 13:45 93 12/09/20 13:38 90 12/09/20 11:29 94 12/09/20 11:11 93 12/09/20 08:00 12/09/20 07:33 94 12/09/20 03:01 92 12/08/20 22:48 94 12/08/20 22:19 12/08/20 19:21 93 12/08/20 16:00 12/08/20 15:00 95 Pain Intensity Left Lower Abdomen: Pain Intensity: 2 Anterior Abdomen: Pain Intensity: 2 Transfer of Care Handoff Completed per policy Notes Mental Status: alert / awake / arousable Patient Amnestic to Procedure: Yes Nausea / Vomiting: adequately controlled Pain: adequately controlled Airway Patency, RR, SpO2: stable & adequate BP & HR: stable & adequate Hydration State: stable & adequate Anesthetic Complications: no major complications apparent and Pt Satisfied with anesthetic care Notes: The patient is awake and comfortable. His vital signs are stable.
[2020-12-09] MEDS ORDERED: HYDROmorphone INJ 1 MG/ML SYRINGE IV STA (16:12)
[2020-12-09] MEDS: ENOXAPARIN INJ 30 MG/0.3 ML SYR SQ SCH (17:55)
--- NOTE | 2020-12-09 18:00 | Hospitalist Progress Note ---
Date of Service December 09, 2020 Assessment & Plan (1) Acute cholecystitis: Present on admission with RUQ abdominal pain associated with nausea CT abd/pelvis showed gallbladder distention with associated wall thickening and trace pericholecystic edema. Surgery on board Continue IV abx with Zosyn and IVF S/P laparoscopic cholecystectomy performed by Dr. Key today Continue pain management Clear liquid diet resumed Umbilical hernia S/P open repair of umbilical hernia performed today by Dr. Key Continue pain controlled Incentive spirometry Monitor h/h (2) Cholangitis: (3) Elevated liver function tests: Liver enzymes worsening with AST 352, ALT 333 and ALK 153 MRCP showed distended and mildly thickened gallbladder. There is a small amount of layering sludge/stones within the neck of the gallbladder. In addition, there is focal abrupt cut off within the mid cystic duct. This could represent small stones within the cystic duct. Mild to moderate left-sided intrahepatic bile duct dilatation with an 11 mm filling defect seen within the proximal left hepatic duct and mild focal narrowing at the origin of the left extra hepatic bile duct. Gastro consulted to eval for ERCP ERCP performed by Dr. Corrigan with Choledocholelithiasis was found. Complete removal was accomplished by biliary sphincterotomy and balloon extraction. One plastic biliary stent was placed in the left hepatic duct. Follow-up with GI in 4 weeks for ERCP to remove stent LFT trending down with AST from 92 to 37 and ALT from 192 to 123 Continue antibiotic to complete 7 days course (4) Elevated troponin: (5) Coronary atherosclerosis of [place] coronary artery: S/P CABG x 2 on 2018 Possible due to myocardial strain in the setting of his acute noncardiac illness. Troponin peaked at 0.4 75, then trending down to 0.293 EKG showed no acute ischemic changes Cardiology on board Echocardiogram performed today revealed normal LV and RV function, no regional wall motion abnormalities, LVEF 60 to 65%. OK from Cardiology to proceed to operative intervention for acute cholecystitis No additional cardiac testing needing Continue aspirin and verapamil without interruption. Continue losartan and atorvastatin, but if Liver enzymes worsening, will hold statin Continue monitor (6) HTN (hypertension): BP stable Continue Verapamil and Losartan Continue monitor BP (7) Asthma: Continue Neb treatment Stable (8) Hypokalemia: K 3.3 today K replaced Continue monitor BMP (9) Prostate cancer: (10) BPH (benign prostatic hyperplasia): Continue home dosing of Flomax. Patient noted to have possible bony metastases on CT of the abd/pelvis. This was discussed with the patient. He will require outpatient follow up with PCP and Hematology/Oncology for further workup and management. (11) Hypothyroidism: Continue home dosing of levothyroxine (12) History of pulmonary embolism: (13) DVT prophylaxis: Per surgical team Disposition As per surgery Thank you for this consultation. We will follow the patient with you during their hospital stay. You can reach a member of the [facility]ist Team 07/02 via pager @ or via [employer] Admission and Anticipated Discharge Date Admission Date: December 07, 2020 Subjective Pt was seen and examined for follow up of RUQ abdominal pain Lying in bed with no distress. Pt is waiting to go to OR for gallbladder removal Denies any chest pain, palpitation, dizziness and SOB Review of Systems Review of Systems: All systems reviewed & are unremarkable except as noted in Subjective Physical Exam Physical Exam: General- No acute distress Head- atraumatic Eyes- PERRL, EOMI, ENT- oropharynx clear Neck- supple, no JVD Lungs- clear to auscultation Heart- regular rhythm; no murmur Abdomen- +mild abdominal pain, Nondistended, +umbilical hernia Extremities- no calf tenderness Neuro- alert, oriented x 3; PERRL, EOMI; no facial palsy; no dysarthria Skin- warm & dry Results & Data Results & Data ([facility] [place]) Vital Signs (Past 12 Hours) Vital Signs Temp Pulse Pulse Pulse Resp BP Pulse Ox 12/09/20 17:57 36.4 C L 58 L 16 151/71 H 98 12/09/20 17:00 36.5 C 66 18 155/78 H 97 12/09/20 16:14 36.3 C L 69 18 145/72 H 94 12/09/20 15:30 36.4 C L 68 18 162/88 H 96 12/09/20 15:00 62 12/09/20 14:57 36.7 C 61 22 156/69 H 94 12/09/20 14:35 36.8 C 63 18 144/69 H 93 12/09/20 14:25 64 17 138/65 93 12/09/20 14:15 58 L 18 134/62 93 12/09/20 14:05 67 20 125/69 90 12/09/20 13:55 61 17 129/60 92 12/09/20 13:45 66 19 133/59 L 93 12/09/20 13:38 36.6 C 78 20 132/58 L 90 12/09/20 11:29 36.6 C 64 20 117/66 94 12/09/20 11:11 36.8 C 70 18 152/72 H 93 12/09/20 08:00 56 L 12/09/20 07:33 36.8 C 84 18 122/69 94
[2020-12-09] MEDS ORDERED: FLUTICASONE/SALMETEROL 250/50 (ADVAIR) 14 PUFF/1 INHALER INH SCH (21:00)
[2020-12-09] MEDS: TAMSULOSIN HCL 0.4 MG CAP PO SCH (21:21)
[2020-12-10] MEDS: PIPERACILLIN/TAZOBACTAM 3.375 GM in DEXTROSE 5% 100 ML IV SCH ×2 (01:28→07:36)
[2020-12-10] MEDS: MoRPHine SULFATE 2 MG/ML CARP IV PRN ×2 (01:33→07:33)
[2020-12-10] MEDS: LEVOTHYROXINE SODIUM 150 MCG TABLET PO SCH (05:49)
[2020-12-10] MEDS ORDERED: POTASSIUM CHLORIDE CRTAB 20 MEQ TABCR PO STA (06:18)
[2020-12-10] MEDS ORDERED: VERAPAMIL HCL 180 MG TABCR PO SCH (06:20)
[2020-12-10] MEDS ORDERED: MAGNESIUM SULFATE / D5W 1 GM/100 ML BAG IV ONE (06:30)
[2020-12-10 07:03] LABS: Hematocrit (blood only) 41.1 % (42-52); Immature Granulocytes # (auto) 0.04 K/uL (0.00-0.02); Immature Granulocytes % (auto) 0.6 %; Lymphocytes # (auto) 0.44 K/uL (1.2-3.4); Lymphocytes % (auto) 6.1 %; Mean Corpuscular Hemoglobin 30.8 pg (25-34); Mean Corpuscular Hgb Conc 34.1 g/dL (32-36); Mean Corpuscular Volume 90.5 fL (80-100); Mean Platelet Volume 11.8 fL (7.4-10.4); Monocytes % (auto) 8.3 %; Neutrophils # (auto) 6.17 K/uL (1.4-6.5); Platelet Count 177 K/uL (130-400); RDW Coefficient of Variation 13.7 % (11.5-14.5); RDW Standard Deviation 45.7 fL (36.4-46.3); Red Blood Count 4.54 M/uL (4.7-6.1); White Blood Count 7.25 K/uL (4.8-10.8)
[2020-12-10 07:29] LABS: Albumin Level 2.9 gm/dl (3.4-5.0); Calcium 8.3 mg/dl (8.5-10.1); Est GFR (Non-African American) 75.9 ml/min; Magnesium 2.4 mg/dl (1.8-2.4); Potassium 3.3 mmol/L (3.5-5.1)
[2020-12-10 07:32] LABS: Albumin Globulin Ratio 0.9 (0.9-2); Bilirubin,Total 0.7 mg/dl (0.2-1); Globulin 3.3 gm/dl (2.5-4.0); Total Protein 6.2 gm/dl (6.4-8.2)
[2020-12-10] MEDS: ADVANCED PROBIOTIC 1250 MG CAPSULE PO SCH (07:40)
[2020-12-10] MEDS: SERTRALINE HCL 50 MG TABLET PO SCH (07:40)
[2020-12-10] MEDS: ATORVASTATIN 40 MG TAB PO SCH (07:41)
[2020-12-10] MEDS: LOSARTAN POTASSIUM 50 MG TAB PO SCH (07:41)
[2020-12-10] MEDS: FLUTICASONE/VILANTEROL 100/25MCG 14 PUFFS/INHALER INH SCH (07:41)
[2020-12-10] MEDS: ASPIRIN 81 MG ECTAB PO SCH (07:41)
[2020-12-10] MEDS: ONDANSETRON INJ 2 MG/ML 2 ML VIAL IV PRN (07:44)
[2020-12-10] MEDS: FAMOTIDINE 20 MG TAB PO SCH (07:45)
[2020-12-10] MEDS: TRIAMCINOLONE ACET NASAL SPRAY 10.8ML BTL SCH (07:47)
[2020-12-10] MEDS: POTASSIUM CHLORIDE CRTAB 20 MEQ TABCR PO SCH (07:48)
[2020-12-10] MEDS ORDERED: CHOLECALCIFEROL 1,000 UNITS 25 MCG TAB PO SCH (09:00)
--- NOTE | 2020-12-10 09:30 | Anesthesiology Progress Note ---
Date of Service December 10, 2020 Anesthesia Post Procedure Vital Signs Vital Signs: Temp Pulse Pulse Pulse Resp BP BP 12/10/20 08:21 36.5 C 70 18 172/83 H 178/84 H 12/10/20 07:45 77 12/10/20 04:00 36.9 C 69 18 152/77 H 12/10/20 00:53 68 12/09/20 23:38 36.8 C 74 18 146/79 H 12/09/20 18:36 36.4 C L 70 16 146/78 H 12/09/20 17:57 36.4 C L 58 L 16 151/71 H 12/09/20 17:00 36.5 C 66 18 155/78 H 12/09/20 16:14 36.3 C L 69 18 145/72 H 12/09/20 15:30 36.4 C L 68 18 162/88 H 12/09/20 15:00 62 12/09/20 14:57 36.7 C 61 22 156/69 H 12/09/20 14:35 36.8 C 63 18 144/69 H 12/09/20 14:25 64 17 138/65 12/09/20 14:15 58 L 18 134/62 12/09/20 14:05 67 20 125/69 12/09/20 13:55 61 17 129/60 12/09/20 13:45 66 19 133/59 L 12/09/20 13:38 36.6 C 78 20 132/58 L 12/09/20 11:29 36.6 C 64 20 117/66 12/09/20 11:11 36.8 C 70 18 152/72 H Pulse Ox 12/10/20 08:21 92 12/10/20 07:45 12/10/20 04:00 91 12/10/20 00:53 12/09/20 23:38 92 12/09/20 18:36 96 12/09/20 17:57 98 12/09/20 17:00 97 12/09/20 16:14 94 12/09/20 15:30 96 12/09/20 15:00 12/09/20 14:57 94 12/09/20 14:35 93 12/09/20 14:25 93 12/09/20 14:15 93 12/09/20 14:05 90 12/09/20 13:55 92 12/09/20 13:45 93 12/09/20 13:38 90 12/09/20 11:29 94 12/09/20 11:11 93 Pain Intensity Left Lower Abdomen: Pain Intensity: 2 Anterior Abdomen: Pain Intensity: 2 Notes Mental Status: alert / awake / arousable and participated in evaluation Patient Amnestic to Procedure: Yes Nausea / Vomiting: adequately controlled Pain: adequately controlled Airway Patency, RR, SpO2: stable & adequate BP & HR: stable & adequate Hydration State: stable & adequate Anesthetic Complications: no major complications apparent
--- NOTE | 2020-12-10 10:24 | Progress Note ---
Date of Service F/U S/P laparoscopic cholecystectomy, POD 1 pt is doing fine, no abdominal pain, tolerated diet, December 10, 2020 Assessment & Plan (1) History of pulmonary embolism: will plan on DVT prophylaxis with lovenox/ SCD's 12/10/2020 10:23AM F/U S/P lap olivia POD 1 doing fine, discharge home today, the post-op care instruction was given, F/U me 2 weeks, (2) Prostate cancer: s/p seed placement. CT scan concerning for development of sclerotic metastasis - discussed with pt and advised f/u with oncology (3) Acute cholecystitis: Continues on IV abx. (4) Elevated liver function tests: Concerning that his liver tests have increased overnight. Given clinical scenario of RUQ pain and fever, worrisome for ascending cholangitis. CT scan did not show stones or sludge so we discussed checking a RUQ U/S and MRCP to better evaluate. Would recommend GI consult. Should he need a ERCP, I had discussed with Dr. Robyn Heller, who could perform it either later today or tomorrow. Will defer to GI. Explained that he will likely still need a cholecystectomy but timing will be determined based on above results. Reviewed with Dr. Fagan. (5) Coronary atherosclerosis of [place] coronary artery: Troponin's elevated. Await cardiology eval to assess perioperative risk. Admission and Anticipated Discharge Date Admission Date: December 07, 2020 Supervising Physician Co-Signing Physician Notes Care coordinated with Jaelyn Hightower PA-C Agree with above note. Patient seen and examined. Please refer to her notes for full details. Vital signs reviewed. Physical exam: General exam: Alert and oriented. Not in acute distress. CVS: S1 and S2 heard, regular rate and rhythm, no murmurs. RS: Clear to auscultation, no wheezing or crackles. ABD: Soft, bowel sounds present, nontender, no distention. [employer]: Nonfocal. EXT: No edema, no erythema. Labs: Reviewed. Assessment and plan: 79M With hx of cad s/p stent s/p cabg, asthma, hx of prostrate cancer presents w ith abdominal singer, n/v and chills. temp spike in ER. Patient developed abdominal discomfort last tuesday when he ate hamburger but it subsided and again started to day Am. Denies any chest pain or sob. Says not feeling good. Hemodynamics stable. Acute cholecystitis on zosyn fluids npo surgery on board cardiology consulted for pre op as troponin slightly elevated though in normal range EKG no new changes will trend CE will monitor in med/tele [place] currently stable home inhalers. Hx of cad s/p cabg continue aspirin, statin cardio consult for optimization prior to surgery Other diagnosis and plan of care as per Jaelyn Hightower PA-C. Morales das MD. 12/08/2020 12:49PM Dr. Key Assessment and plan: 79M With hx of cad s/p stent s/p cabg, asthma, hx of prostrate cancer presents with abdominal singer, n/v and chills. temp spike in ER. Patient developed abdominal discomfort last Tuesday when he ate hamburger but it subsided and again started to day Am. Denies any chest pain or sob. Says not feeling good. Hemodynamics stable. I recommend to do laparoscopic cholecystectomy, possible open or cholangiogram, tomorrow, D/W benefits, risks and alternatives of the surgery, with pt and his ( I called Angela Crockett [phone]), the risks - infection, bleeding, injury other organs,VA, DVT, stroke, , they understood, they agree with the surgery, I answered all questions, Subjective Pt was seen and examined for follow up of RUQ abdominal pain Lying in bed with no distress. Pt is waiting to go to OR for gallbladder removal Denies any chest pain, palpitation, dizziness and SOB Physical Exam Constitutional: WD/WN, vitals as above well developed and well nourished Eyes: PERRL, conjunctivae normal, anicteric sclerae Neck: trachea midline, no thyromegaly Respiratory: normal respiratory effort, lungs clear to auscultation normal respiratory effort Cardiovascular: RRR, no murmur, no edema Rate/Rhythm: regular rate and regular rhythm Gastrointestinal (Abdomen): normal bowel sounds, soft, nontender, no hepatosplenomegaly Percussion/Palpation: abdomen soft all incisions intact, no redness, BS + Musculoskeletal: no cyanosis or clubbing, extremities motor strength 5/5 Neurologic: awake Psychiatric: Orientation: alert and oriented x 3 Results & Data ([facility]) Vital Signs (Past 12 Hours) Vital Signs Temp Pulse Pulse Pulse Resp BP BP 12/10/20 10:09 157/73 H 12/10/20 08:21 36.5 C 70 18 172/83 H 178/84 H 12/10/20 07:45 77 12/10/20 04:00 36.9 C 69 18 152/77 H 12/10/20 00:53 68 12/09/20 23:38 36.8 C 74 18 146/79 H Pulse Ox 12/10/20 10:09 12/10/20 08:21 92 12/10/20 07:45 12/10/20 04:00 91 12/10/20 00:53 12/09/20 23:38 92 Laboratory Results Abnormal lab results 12/10/20 12/10/20 Range/Units 06: 06:26 RBC 4.54 L (4.7-6.1) M/uL Hct 41.1 L (42-52) % MPV 11.8 H (7.4-10.4) fL Lymph # (Auto) 0.44 L (1.2-3.4) K/uL Stone # (Auto) 0.60 H (0.11-0.59) K/uL Immature Gran # (Auto) 0.04 H (0.00-0.02) K/uL Potassium 3.3 L (3.5-5.1) mmol/L Chloride 112 H (98-107) mmol/L BUN 21 H (7-18) mg/dl BUN/Creatinine Ratio 22.0 H (10-20) Glucose 111 H (70-99) mg/dl Calcium 8.3 L (8.5-10.1) mg/dl ALT 103 H (12-78) U/L Total Protein 6.2 L D (6.4-8.2) gm/dl Albumin 2.9 L (3.4-5.0) gm/dl
[2020-12-10] MEDS: MoRPHine SULFATE 4 MG/ML 1 ML CARP\\VIAL IV PRN (11:13)
--- NOTE | 2020-12-10 11:18 | Cardiology Progress Note ---
Date of Service December 09, 2020 Assessment & Plan (1) Preoperative cardiovascular examination: (2) Troponin I above reference range: (3) Status post double vessel coronary artery bypass: (4) Acute cholecystitis: Patient has a history of multivessel coronary heart disease with CABG x2, COATS to LAD, SVG to circumflex obtuse marginal territory in June,. He presents with clinical symptoms suggestive of acute cholecystitis, supported by findings on CT of the abdomen pelvis. His presenting symptoms are not reminiscent of his previous anginal equivalent. I believe his troponin I elevation, which is mild and flat, is due to myocardial strain in the setting of his acute noncardiac illness. He notes no recent anginal symptoms at home, describes a stable degree of exertional shortness of breath that has not changed. Sinus tachycardia noted when he was in distress yesterday which is since resolved. His EKG reveals stable findings compared to his previous post CABG outpatient EKG tracings. Echocardiogram performed today revealed normal LV and RV function, no regional wall motion abnormalities, LVEF 60 to 65%. Would recommend proceeding to operative intervention for acute cholecystitis as indicated without further cardiac testing. Would prefer if patient remains on aspirin without interruption. It is noted that he has been intolerant of beta-araceli therapy in the past, and that is why he is on verapamil which is to be continued during the perioperative interval as this is losartan and atorvastatin. I would estimate his risk of perioperative cardiac complication is low. For surgery today. Admission and Anticipated Discharge Date Admission Date: December 07, 2020 Subjective Late entry for re-eval on 12/09/20. Patient seen and examined, chart reviewed. Still with abdominal pain, for OR today. Denies cardiac complaints. Tele reviewed: sinus rhythm without arrhythmia. Review of Systems Review of Systems: All systems reviewed & are unremarkable except as noted in HPI & below Physical Exam Physical Exam: General: Awake, alert and oriented x 3. No acute distress. HEENT: Normocephalic, atraumatic. Pupils equal, round and reactive to light and accommodation. Extraocular muscles are intact. Anicteric sclera. Moist mucous membranes. Neck: No JVD. No bruit. Cardiovascular: Regular. Positive S-4. Normal S-1 and S-2. No S-3. No murmurs or rubs. Pulmonary: Clear to auscultation B/L. No rales, rhonchi or wheezing Abdomen: Bowel sounds x 4, soft. No rebound, guarding or tenderness. No organomegaly. Extremities: No clubbing, cyanosis or edema. +2 pedal pulses bilaterally. Skin: Warm and dry. Results & Data ([facility]) Vital Signs (Past 12 Hours) Vital Signs Temp Pulse Pulse Pulse Resp BP BP 12/10/20 10:36 36.5 C 70 74 18 157/73 H 178/84 H 12/10/20 10:09 157/73 H 12/10/20 08:21 36.5 C 70 18 172/83 H 178/84 H 12/10/20 07:45 77 12/10/20 04:00 36.9 C 69 18 152/77 H 12/10/20 00:53 68 12/09/20 23:38 36.8 C 74 18 146/79 H Pulse Ox 12/10/20 10:36 92 12/10/20 10:09 12/10/20 08:21 92 12/10/20 07:45 12/10/20 04:00 91 12/10/20 00:53 12/09/20 23:38 92
--- NOTE | 2020-12-22 09:54 | Discharge Summary (DS) ---
ADMITTING DIAGNOSES: Acute cholecystitis, cholelithiasis and common bile duct stone. DISCHARGE DIAGNOSES: Acute cholecystitis, cholelithiasis, common bile duct stone. OPERATION: Laparoscopic cholecystectomy. SURGEON: Praful Key MD., and also patient had an ERCP by the GI doctor. DETAILS OF PROCEDURE: This is a 79-year-old gentleman who was admitted to hospital for 4 days, abdominal pain and patient had a CT scan and diagnoses of acute cholecystitis with cholelithiasis. Also, patient had ultrasound diagnosis of acute cholecystitis. The patient was admitted to hospital on 12/06/2020 and patient had the ERCP by the GI doctor. After ERCP the patient recovered well and abdominal pain is much better. So the patient had a laparoscopic cholecystectomy on 12/09/2020 and patient tolerated the procedure well. The patient recovered well. The patient tolerated the diet. No nausea, no vomiting. PHYSICAL EXAMINATION: VITAL SIGNS: Temperature is 36.5, respiratory rate 18, heart rate 74, O2 saturation 92% on room air, patient's blood pressure is 178/84. GENERAL: The patient is alert, awake, oriented x3. HEENT: With normal limitation. NEUROLOGIC: Intact. NECK: No JVD. CHEST: Bilateral lung sounds clear. HEART: Normal S1, S2. No murmur. ABDOMEN: Soft. All dressing intact and no distention. Mild tenderness on the umbilical incision site. Bowel sounds positive. EXTREMITIES: No edema. PLAN: The patient wanted to go home on 12/10/2020. We discharged the patient home with postop care instruction. The patient understands. I will follow up patient in 2 weeks.
== END 2020-12-10 14:32 | disposition home or self-care (01) | DRG 418 ==
LOC: 3N 09:54 → ED 09:54 → 3N 15:10 → 2W 16:06

== ENCOUNTER 2021-01-31 21:27 | Inpatient (IN) ==
[2021-01-31] MEDS ORDERED: SODIUM CHLORIDE 0.9% 1000ML 1,000 ML IV ONE (21:54)
[2021-01-31] MEDS ORDERED: ONDANSETRON INJ 2 MG/ML 2 ML VIAL IV STA (21:54)
[2021-01-31] MEDS ORDERED: MoRPHine SULFATE 4 MG/ML 1 ML CARP\\VIAL IV STA (21:55)
--- NOTE | 2021-01-31 21:59 | Emergency Department Note ---
Impression & Plan Pancreatitis, Leukocytosis, High serum chloride ED Provider Note NAME: LAURA FRAGA AGE: 80 SEX: M : 1940 ARRIVES VIA: Walk-In INFORMANT: Patient ED PROVIDER(S): Bhupinder Bangura DO CHIEF COMPLAINT: abdominal pain HPI: Patient is a 80-year-old male who presents to the ER for abdominal pain. Patient notes that he had a cholecystectomy with stents placed about a month ago. Yesterday he had the stents removed by Dr. Heller in combination with some stones that were still present. When he got home he started having mid abdominal pain radiating out to both sides. Associated with nausea. Slightly worse with eating and drinking She is taking clear liquids. Denies any chest pain or shortness of breath. No dysuria, urgency, or frequency. No other exacerbating or remitting factors. ROS: See above HPI for pertinent positives & negatives. A total of 10 systems reviewed and were otherwise negative. PAST MEDICAL HISTORY:See Below PAST SURGICAL HISTORY:See Below FAMILY HISTORY:See Below SOCIAL HISTORY:See Below HOME MEDICATIONS:See Below ALLERGIES:See Below VITALS:See Below PHYSICAL EXAMINATION: GENERAL: Sitting up in bed, alert, well appearing, well nourished, no distress, non-toxic EYE EXAM: normal conjunctiva. OROPHARYNX: no exudate, no erythema, lips, buccal mucosa, and tongue normal and mucous membranes are moist NECK: supple, no nuchal rigidity, no adenopathy, non-tender LUNGS: Clear to auscultation. Normal chest wall mechanics HEART: no murmurs, S1 normal and S2 normal ABDOMEN: abdomen soft, non-tender, normo-active bowel sounds, no masses, no rebound or guarding. UPPER EXTREMITIES: upper extremities are grossly normal. LOWER EXTREMITIES: No pitting edema. NEURO EXAM: Normal sensorium, cranial nerves II-XII grossly intact, normal speech, no gross weakness of arms, no gross weakness of legs. MEDICAL DECISION MAKING: Patient is a 80-year-old gentleman with a previous history of cholecystectomy about a month ago who presents the ER following having stents removed from the pancreas yesterday. He presents with nausea and belly pain. He is unable to eat. He is able to keep down some clear liquids. CT abdomen pelvis shows pancreatitis. Labs show a mild leukocytosis of 15,000.BMP with mild hypokalemia. LFTs bilirubin was remarkable for T bili of 1.1. Patient was given IV fluids and morphine. He did take his Cipro today. He was updated bedside. Discussed with the hospitalist admitted for further work-up. Patient was given a dose of Zosyn while here as the white count increased to 15. Triage Nursing notes reviewed. Limited review of prior medical records performed Vital Signs: reviewed and remarkable for HTN Differential diagnosis: Differential diagnoses includes but is not limited to gastritis, peptic ulcer disease, GERD, gallbladder disease, pancreatitis, small bowel obstruction, acute coronary syndrome, pericarditis, ischemic bowel, irritable bowel disease, irritable bowel syndrome, appendicitis, diverticulitis, malignancy, hernia, urinary tract infection, torsion, perforation, trauma, infectious. ER treatment provided: See below Diagnostics interpreted by me: ECG: none Cardiac Monitoring: An order was placed for continuous cardiac monitoring. The monitor shows a rate of 72 with sinus rhythm. Laboratory studies: As stated above and show below. Imaging studies: See below Consultation(s): Discussed with Dr. Butler for further evaluation Procedures: none Critical Care: None Past Med/Surg History Medical History Afib post-op CABG, no known recurrences per pt Asthma BPH (benign prostatic hyperplasia) CAD (coronary artery disease) CABG (2018) + stents (MARY to prox Lcx, MARY x2 to mid LAD- 2018) Clostridium difficile carrier COPD (chronic obstructive pulmonary disease) History of Graves' disease History of pulmonary embolism 2010, AC since discontinued Hypertension Hypothyroidism Prostate cancer S/P seed implant Skin cancer Surgical History H/O rotator cuff surgery History of appendectomy History of basal cell carcinoma (BCC) excision History of cardiac cath CABG (2018) + stents (MARY to prox Lcx, MARY x2 to mid LAD- 2018) History of cholecystectomy Lap cholecystectomy, open repair of umbilical hernia (12/09/2020): Grade 2 view, MAC #3, ETT 7.5 at [facility] History of colonoscopy with polypectomy History of cystoscopy History of eye surgery History of hernia repair History of malignant melanoma of skin Back, eyelid History of thyroidectomy, total History of vasectomy Status post double vessel coronary artery bypass CABG (2019) Status post operation on nasal sinus 2002 Family History Father Cancer Prostate and bladder Mother Stroke Breast cancer Social History (Updated 01/13/21 @ 15:31 by Lia Motley RN) Smoking Status: Never smoker Age Quit Using Tobacco: 27; Number of Years Since Quit: 50; Second Hand Exposure: Yes (FATHER SMOKED); Hx Alcohol Use: Yes Alcohol type: hard liquor Alcohol Intake Frequency Comment: 1-2 drinks per day Hx Substance Use: No Preferred Language: [place] Communication Ability: Effective Duty Officer Required: No Beliefs That Will Affect Care: None marital status: Current Living Situation: Spouse current occupational status: retired current occupation: Retired Feels Safe at Home: Yes Assistive Devices: Glasses Allergies Allergies Allergy/AdvReac Type Severity Reaction Status Date / Time codeine AdvReac Mild N/V Verified 01/31/21 23:43 Home Meds Home Medications Medication Instructions Recorded Confirmed guaifenesin 600 mg tablet, 600 mg PO Q12H PRN 10/31/18 01/30/21 extended release 12 hr (Mucinex) levothyroxine 137 mcg tablet 137 mcg PO 4XWK 10/31/18 01/30/21 levothyroxine 150 mcg tablet 150 mcg PO 3XWK 10/31/18 01/30/21 (Synthroid) potassium chloride 10 mEq 10 meq PO QAM 10/31/18 01/30/21 tablet,extended release(part/cryst) (Klor-Con M) sertraline 50 mg tablet (Zoloft) 50 mg PO QAM 10/31/18 01/30/21 tamsulosin 0.4 mg capsule (Flomax) 0.4 mg PO HS 10/31/18 01/30/21 triamcinolone acetonide 55 mcg 1 spray INTRANASAL BID 10/31/18 01/30/21 nasal spray aerosol acetaminophen 500 mg capsule 500 mg PO UD PRN 07/12/19 01/13/21 albuterol sulfate 90 mcg/actuation 2 puff INHALATION Q6H PRN 07/12/19 01/30/21 aerosol inhaler fluticasone 250 mcg-salmeterol 50 1 inh INHALATION BID 07/12/19 01/30/21 mcg/dose blistr powdr for inhalation (Wixela Inhub) ipratropium 0.5 mg-albuterol 3 mg 3 ml INHALATION Q4H PRN 07/12/19 01/30/21 (2.5 mg base)/3 mL nebulization soln Probiotic 1 cap PO QAM 07/24/19 01/30/21 meclizine 25 mg tablet 25 mg PO Q6 PRN 07/24/19 01/13/21 atorvastatin 80 mg tablet 80 mg PO HS 12/06/20 01/30/21 cholecalciferol (vitamin D3) 25 25 mcg PO QAM 12/06/20 01/30/21 mcg (1,000 unit) tablet (Vitamin D3) famotidine 20 mg tablet (Pepcid) 20 mg PO QAM 12/06/20 01/30/21 hydrochlorothiazide 12.5 mg capsule 12.5 mg PO [facility] 12/06/20 01/30/21 losartan 100 mg tablet 100 mg PO QAM 12/06/20 01/30/21 verapamil 180 mg tablet,extended 180 mg PO HS 12/06/20 01/30/21 release aspirin 81 mg tablet,delayed 81 mg PO BID 01/13/21 01/30/21 release Previous Rx's Medication Instructions Recorded ciprofloxacin HCl 500 mg tablet 500 mg PO BID #10 tab 01/30/21 (Cipro) Results & Data (ED) Vital Signs Vital Signs - 24 hr 01/31/21 21:31 01/31/21 22:26 01/31/21 23:28 Temperature 36.8 C Temperature Source Temporal Artery Scan Pulse Rate 77 80 Pulse Rate [Right Finger] 69 Respiratory Rate 20 20 18 Respiratory Effort / Characteristics Non-Labored Spontaneous Normal for Patient Respiratory Depth Normal Respiratory Pattern Regular Blood Pressure 211/92 H Blood Pressure [Right Arm] 180/88 H Blood Pressure Mean 131 Blood Pressure Mean [Right Arm] 118 Blood Pressure Position [Right Arm] Lying Pulse Oximetry 95 95 94 Oxygen Delivery Method Room Air Room Air Room Air Sepsis Recent Fever Within 48 Hours Yes Sepsis New/Unexplained Change in Mental Status No Sepsis Action Taken by Nursing No Action Required Laboratory Data Result diagrams: 01/31/21 22:09 01/31/21 22:09 Lab Results 01/31/21 01/31/21 01/31/21 Range/Units 22:09 22:09 22:17 WBC 15.33 H (4.8-10.8) K/uL RBC 4.80 (4.7-6.1) M/uL Hgb 14.9 (14.0-18.0) g/dL POC Hgb 13.9 L (14.0-18.0) g/dl Hct 42.1 (42-52) % POC Hct 41 L (42-52) % MCV 87.7 (80-100) fL MCH 31.0 (25-34) pg MCHC 35.4 (32-36) g/dL RDW Std Deviation 45.1 (36.4-46.3) fL RDW Coeff of Valentino 14.1 (11.5-14.5) % Plt Count 198 (130-400) K/uL MPV 10.7 H (7.4-10.4) fL Immature Gran % (Auto) 0.3 % Neut % (Auto) 84.0 % Lymph % (Auto) 7.4 % George % (Auto) 8.1 % Eos % (Auto) 0.1 % Baso % (Auto) 0.1 % Neut # (Auto) 12.89 H (1.4-6.5) K/uL Lymph # (Auto) 1.13 L (1.2-3.4) K/uL George # (Auto) 1.24 H (0.11-0.59) K/uL Eos # (Auto) 0.02 (0-0.5) K/uL Baso # (Auto) 0.01 (0-0.2) K/uL Immature Gran # (Auto) 0.04 H (0.00-0.02) K/uL POC Sodium 138 (135-144) mmol/L Sodium 138 (136-145) mmol/L POC Potassium 4.5 (3.3-5.0) mmol/L Potassium 3.4 L (3.5-5.1) mmol/L POC Chloride 105 (101-112) mmol/L Chloride 110 H (98-107) mmol/L Carbon Dioxide 22 (21-32) mmol/L POC Total CO2 20 L (24-31) mmol/L Anion Gap 7.0 (3-11) POC Anion Gap 19.0 (16-25) mmol/L POC BUN 26 H (7-18) mg/dl BUN 21 H (7-18) mg/dl Creatinine 0.98 (0.6-1.4) mg/dl POC Creatinine 1.0 (0.6-1.3) mg/dl Est Cr Clr Drug Dosing 65.7 ml/min Est GFR ( Amer) 85.2 ml/min Est GFR (Non-Af Amer) 73.6 ml/min BUN/Creatinine Ratio 21.6 H (10-20) Glucose 107 H (70-99) mg/dl POC Glucose (other) 111 H (70-99) mg/dl Calcium 9.0 (8.5-10.1) mg/dl POC Ioniz Calcium Ruben 1.11 L (1.12-1.32) mmol/l Magnesium 2.1 (1.8-2.4) mg/dl Total Bilirubin 1.1 H (0.2-1) mg/dl AST 20 (15-37) U/L ALT 29 (12-78) U/L Alkaline Phosphatase 93 (45-117) U/L Total Protein 6.6 (6.4-8.2) gm/dl Albumin 3.8 (3.4-5.0) gm/dl Globulin 2.8 (2.5-4.0) gm/dl Albumin/Globulin Ratio 1.3 (0.9-2) Lipase 330 (73-393) U/L Urine Color Urine Appearance (Clear) Urine pH (4.5-7.5) Ur Specific [place] (1.000-1.030) Urine Protein (Negative) Urine Glucose (UA) (Negative) Urine Ketones (Negative) Urine Blood (Negative) Urine Nitrite (Negative) Urine Bilirubin (Negative) Urine Urobilinogen (Negative) Ur Leukocyte Esterase (Negative) COVID-19 Eval Order 01/31/21 01/31/21 Range/Units 23:05 23:35 WBC (4.8-10.8) K/uL RBC (4.7-6.1) M/uL Hgb (14.0-18.0) g/dL POC Hgb (14.0-18.0) g/dl Hct (42-52) % POC Hct (42-52) % MCV (80-100) fL MCH (25-34) pg MCHC (32-36) g/dL RDW Std Deviation (36.4-46.3) fL RDW Coeff of Valentino (11.5-14.5) % Plt Count (130-400) K/uL MPV (7.4-10.4) fL Immature Gran % (Auto) % Neut % (Auto) % Lymph % (Auto) % George % (Auto) % Eos % (Auto) % Baso % (Auto) % Neut # (Auto) (1.4-6.5) K/uL Lymph # (Auto) (1.2-3.4) K/uL George # (Auto) (0.11-0.59) K/uL Eos # (Auto) (0-0.5) K/uL Baso # (Auto) (0-0.2) K/uL Immature Gran # (Auto) (0.00-0.02) K/uL POC Sodium (135-144) mmol/L Sodium (136-145) mmol/L POC Potassium (3.3-5.0) mmol/L Potassium (3.5-5.1) mmol/L POC Chloride (101-112) mmol/L Chloride (98-107) mmol/L Carbon Dioxide (21-32) mmol/L POC Total CO2 (24-31) mmol/L Anion Gap (3-11) POC Anion Gap (16-25) mmol/L POC BUN (7-18) mg/dl BUN (7-18) mg/dl Creatinine (0.6-1.4) mg/dl POC Creatinine (0.6-1.3) mg/dl Est Cr Clr Drug Dosing ml/min Est GFR ( Amer) ml/min Est GFR (Non-Af Amer) ml/min BUN/Creatinine Ratio (10-20) Glucose (70-99) mg/dl POC Glucose (other) (70-99) mg/dl Calcium (8.5-10.1) mg/dl POC Ioniz Calcium Ruben (1.12-1.32) mmol/l Magnesium (1.8-2.4) mg/dl Total Bilirubin (0.2-1) mg/dl AST (15-37) U/L ALT (12-78) U/L Alkaline Phosphatase (45-117) U/L Total Protein (6.4-8.2) gm/dl Albumin (3.4-5.0) gm/dl Globulin (2.5-4.0) gm/dl Albumin/Globulin Ratio (0.9-2) Lipase (73-393) U/L Urine Color Yellow Urine Appearance Clear (Clear) Urine pH 6.5 (4.5-7.5) Ur Specific [place] 1.015 (1.000-1.030) Urine Protein Negative (Negative) Urine Glucose (UA) Negative (Negative) Urine Ketones Negative (Negative) Urine Blood Negative (Negative) Urine Nitrite Negative (Negative) Urine Bilirubin Negative (Negative) Urine Urobilinogen Negative (Negative) Ur Leukocyte Esterase Negative (Negative) COVID-19 Eval Order Covid19 at [facility] Administered Medications Discontinued Medications Sodium Chloride (Nss 1000ml) 1,000 mls @ 999 mls/hr IV .Q1H1M ONE Stop: 01/31/21 22:54 Last Admin: 01/31/21 22:20 Dose: 999 mls/hr Documented by: [id number] Ioversol (Optiray 320 100ml) 93 ml IV ONCE ONE Stop: 01/31/21 22:45 Last Admin: 01/31/21 22:44 Dose: 93 ml Documented by: [id number] Morphine Sulfate (Morphine Sulfate 4 Mg/Ml 1 Ml Carp\Vial) 4 mg IV NOW STA Stop: 01/31/21 21:56 Last Admin: 01/31/21 22:18 Dose: 4 mg Documented by: [id number] Ondansetron HCl (Ondansetron Inj 2 Mg/Ml 2 Ml Vial) 4 mg IV NOW STA Stop: 01/31/21 21:55 Last Admin: 01/31/21 22:18 Dose: 4 mg Documented by: [id number] Potassium Chloride (Potassium Chloride Crtab 20 Meq Tabcr) 40 meq PO NOW STA Stop: 01/31/21 23:35 Last Admin: 01/31/21 23:46 Dose: 40 meq Documented by: [id number] Discharge Plan Visit Data Chief Complaint: Fever Stated Complaint: PROCDURE DONE YESTERDAY, FEVER, NAUSEA, ED Provider: Bhupinder Bangura Discharge Problem: Pancreatitis, Leukocytosis, High serum chloride Forms Stand Alone Forms: My [facility] Prescriptions Prescriptions: No Action levothyroxine 137 mcg Tablet 137 mcg PO 4XWK RF: 0 tamsulosin [Flomax] 0.4 mg capsule 0.4 mg PO HS RF: 0 triamcinolone acetonide 55 mcg Aerosol,[place] 1 spray INTRANASAL BID RF: 0 levothyroxine [Synthroid] 150 mcg tablet 150 mcg PO 3XWK RF: 0 sertraline [Zoloft] 50 mg Tablet 50 mg PO QAM RF: 0 potassium chloride [Klor-Con M10] 10 mEq tablet,ER particles/crystals 10 meq PO QAM RF: 0 guaifenesin [Mucinex] 600 mg Tablet Extended Release 12hr 600 mg PO Q12H PRN (Reason: Congestion) RF: 0 ipratropium-albuterol 0.5 mg-3 mg(2.5 mg base)/3 mL solution for nebulization 3 ml INHALATION Q4H PRN (Reason: Shortness Of Breath) RF: 0 albuterol sulfate 90 mcg/actuation Hfa Aerosol Inhaler 2 puff INHALATION Q6H PRN (Reason: Shortness Of Breath) RF: 0 acetaminophen 500 mg Capsule 500 mg PO UD PRN (Reason: Pain) RF: 0 fluticasone propion-salmeterol [Wixela Inhub] 250-50 mcg/dose Blister With Device 1 inh INHALATION BID RF: 0 meclizine 25 mg Tablet 25 mg PO Q6 PRN (Reason: Dizziness) RF: 0 Probiotic 1 cap PO QAM RF: 0 verapamil 180 mg tablet extended release 180 mg PO HS RF: 0 famotidine [Pepcid] 20 mg tablet 20 mg PO QAM RF: 0 hydrochlorothiazide 12.5 mg capsule 12.5 mg PO QAM RF: 0 losartan 100 mg tablet 100 mg PO QAM RF: 0 atorvastatin 80 mg Tablet 80 mg PO HS RF: 0 cholecalciferol (vitamin D3) [Vitamin D3] 25 mcg (1,000 unit) Tablet 25 mcg PO QAM RF: 0 aspirin 81 mg Tablet,Delayed Release (Dr/Ec) 81 mg PO BID RF: 0 ciprofloxacin HCl [Cipro] 500 mg tablet 500 mg PO BID Qty: 10 RF: 0 Referrals Referrals: Donn Clarke MD [Primary Care Provider] - Discharge Problem: Pancreatitis Qualifiers: Chronicity: acute Pancreatitis type: unspecified pancreatitis type Acute pancreatitis complication: unspecified Qualified Code(s): K85.90 - Acute pancreatitis without necrosis or infection, unspecified Leukocytosis Qualifiers: Leukocytosis type: unspecified Qualified Code(s): D72.829 - Elevated white blood cell count, unspecified
[2021-01-31 22:19] LABS: Basophils # (auto) 0.01 K/uL (0-0.2); Basophils % (auto) 0.1 %; Eosinophils # (auto) 0.02 K/uL (0-0.5); Eosinophils % (auto) 0.1 %; Hematocrit (blood only) 42.1 % (42-52); Hemoglobin 14.9 g/dL (14.0-18.0); Immature Granulocytes # (auto) 0.04 K/uL (0.00-0.02); Immature Granulocytes % (auto) 0.3 %; Lymphocytes # (auto) 1.13 K/uL (1.2-3.4); Lymphocytes % (auto) 7.4 %; Mean Corpuscular Hgb Conc 35.4 g/dL (32-36); Mean Corpuscular Volume 87.7 fL (80-100); Mean Platelet Volume 10.7 fL (7.4-10.4); Monocytes # (auto) 1.24 K/uL (0.11-0.59); Monocytes % (auto) 8.1 %; Neutrophils # (auto) 12.89 K/uL (1.4-6.5); Platelet Count 198 K/uL (130-400); RDW Coefficient of Variation 14.1 % (11.5-14.5); RDW Standard Deviation 45.1 fL (36.4-46.3); White Blood Count 15.33 K/uL (4.8-10.8)
[2021-01-31 22:30] LABS: iSTAT Hemoglobin 13.9 g/dl (14.0-18.0); iSTAT Ionized Calcium 1.11 mmol/l (1.12-1.32); iSTAT Potassium 4.5 mmol/L (3.3-5.0)
[2021-01-31 22:36] LABS: Albumin Level 3.8 gm/dl (3.4-5.0); BUN Creatinine Ratio 21.6 (10-20); Creatinine Clr Calc Pharmacy 65.7 ml/min; Est GFR (African American) 85.2 ml/min; Est GFR (Non-African American) 73.6 ml/min; Potassium 3.4 mmol/L (3.5-5.1)
[2021-01-31 22:38] LABS: Albumin Globulin Ratio 1.3 (0.9-2); Bilirubin,Total 1.1 mg/dl (0.2-1); Globulin 2.8 gm/dl (2.5-4.0); Total Protein 6.6 gm/dl (6.4-8.2)
[2021-01-31] MEDS ORDERED: OPTIRAY 320 100ml IV ONE (22:44)
[2021-01-31 23:20] LABS: Appearance Urine Clear (Clear); Bilirubin Urine Negative (Negative); Blood Urine Negative (Negative); Color Urine Yellow; Glucose Urine UA Negative (Negative); Ketones Urine Negative (Negative); Leukocyte Esterase Urine Negative (Negative); Nitrite Urine Negative (Negative); Protein Urine Negative (Negative); Specific Gravity Urine 1.015 (1.000-1.030); Urobilinogen Urine Negative (Negative); pH Urine 6.5 (4.5-7.5)
[2021-01-31] MEDS ORDERED: POTASSIUM CHLORIDE CRTAB 20 MEQ TABCR PO STA (23:34)
[2021-01-31] MEDS ORDERED: hydrALAZINE HCL 20 MG/ML VIAL IV STA ×2 (23:42)
[2021-01-31 23:46] LABS: Magnesium 2.1 mg/dl (1.8-2.4)
[2021-01-31] MEDS ORDERED: PIPERACILL/TAZOBAC CONSULT ACTIVE PRN (23:55)
[2021-01-31] MEDS ORDERED: PIPERACILLIN/TAZOBACTAM 4.5 GM/120 ML BAG IV ONE (23:55)
[2021-02-01] MEDS ORDERED: VERAPAMIL HCL 180 MG TABCR PO STA (00:05)
--- NOTE | 2021-02-01 00:06 | History & Physical Report ---
Date of Service February 01, 2021 Assessment & Plan (1) Pancreatitis: Plan: hx ERCP Hypertensive urgency secondary to abdominal pain hx CAD status post CABG/stent as per records hx bilateral PE status post anti-coagulation hx prostate cancer status post radiation, possible sclerotic mets on outpatient imaging, outpatient PET scan requested by [facility] as per records hypothyroidism, euthyroid as of recent outpatient TSH from October 2020 Hypokalemia secondary to decreased p.o. intake Hyperglycemia rule out DM past tobacco abuse Medical telemetry given uncontrolled BP Analgesia Facilitate nighttime BP medication IVF, bowel rest GI consult Re: Post ERCP pancreatitis Replace potassium Check hemoglobin A1c DVT prophylaxis per Lovenox subcu Full code Text document was generated using [employer] voice recognition software. It may contain grammatical or spelling errors. Kindly contact undersigned for clarification of any documentation item in question. History of Present Illness Chief Complaint: Abdominal pain Primary Care Provider: Donn Clarke MD History obtained from patient and records. Medical history significant for CAD status post CABG/stent, hypertension, hyperlipidemia, history of PE status post anti-coagulation, asthma, BPH/prostate cancer status post radiation, skin cancer, hypothyroidism, past tobacco abuse Recent confinement 12/07- under General Surgery service for acute calculus cholecystitis, CBD stone status post laparoscopic cholecystectomy and ERCP/biliary stent placement. Patient underwent outpatient ERCP with biliary stent removal yesterday. No obvious biliary stricture seen as per report. Several additional gallstones removed. Patient discharged on 5-day course of Ciprofloxacin. Upon arriving home, patient noted achy epigastric discomfort radiating to his flanks somewhat worsened by eating and drinking. No chest pain, no S OB, no headache symptoms. Persistent pain overnight with fever 102 at home. Patient consulted ER for evaluation. IV Zosyn administered at the ER. 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 Allergies Allergy/AdvReac Type Severity Reaction Status Date / Time Beta-Blockers AdvReac Mild History Verified 02/01/21 00:32 (Beta-Adrenergic Bloc intolerance as per records codeine AdvReac Mild N/V Verified 01/31/21 23:43 Home Medications Medication Instructions Recorded Confirmed Type guaifenesin 600 mg tablet, 600 mg PO Q12H PRN 10/31/18 01/30/21 History extended release 12 hr (Mucinex) levothyroxine 137 mcg tablet 137 mcg PO 4XWK 10/31/18 01/30/21 History levothyroxine 150 mcg tablet 150 mcg PO 3XWK 10/31/18 01/30/21 History (Synthroid) potassium chloride 10 mEq 10 meq PO QAM 10/31/18 01/30/21 History tablet,extended release(part/cryst) (Klor-Con M) sertraline 50 mg tablet (Zoloft) 50 mg PO QAM 10/31/18 01/30/21 History tamsulosin 0.4 mg capsule (Flomax) 0.4 mg PO HS 10/31/18 01/30/21 History triamcinolone acetonide 55 mcg 1 spray INTRANASAL BID 10/31/18 01/30/21 History nasal spray aerosol acetaminophen 500 mg capsule 500 mg PO UD PRN 07/12/19 01/13/21 History albuterol sulfate 90 mcg/actuation 2 puff INHALATION Q6H PRN 07/12/19 01/30/21 History aerosol inhaler fluticasone 250 mcg-salmeterol 50 1 inh INHALATION BID 07/12/19 01/30/21 History mcg/dose blistr powdr for inhalation (Wixela Inhub) ipratropium 0.5 mg-albuterol 3 mg 3 ml INHALATION Q4H PRN 07/12/19 01/30/21 History (2.5 mg base)/3 mL nebulization soln Probiotic 1 cap PO QAM 07/24/19 01/30/21 History meclizine 25 mg tablet 25 mg PO Q6 PRN 07/24/19 01/13/21 History atorvastatin 80 mg tablet 80 mg PO HS 12/06/20 01/30/21 History cholecalciferol (vitamin D3) 25 25 mcg PO QAM 12/06/20 01/30/21 History mcg (1,000 unit) tablet (Vitamin D3) famotidine 20 mg tablet (Pepcid) 20 mg PO QAM 12/06/20 01/30/21 History hydrochlorothiazide 12.5 mg capsule 12.5 mg PO QAM 12/06/20 01/30/21 History losartan 100 mg tablet 100 mg PO QAM 12/06/20 01/30/21 History verapamil 180 mg tablet,extended 180 mg PO HS 12/06/20 01/30/21 History release aspirin 81 mg tablet,delayed 81 mg PO BID 01/13/21 01/30/21 History release ciprofloxacin HCl 500 mg tablet 500 mg PO BID #10 tab 01/30/21 Rx (Cipro) Past Med/Surg History Medical History Afib post-op CABG, no known recurrences per pt Asthma BPH (benign prostatic hyperplasia) CAD (coronary artery disease) CABG (2018) + stents (MARY to prox Lcx, MARY x2 to mid LAD- 2018) Clostridium difficile carrier COPD (chronic obstructive pulmonary disease) History of Graves' disease History of pulmonary embolism 2010, AC since discontinued Hypertension Hypothyroidism Prostate cancer S/P seed implant Skin cancer Surgical History H/O rotator cuff surgery History of appendectomy History of basal cell carcinoma (BCC) excision History of cardiac cath CABG (2018) + stents (MARY to prox Lcx, MARY x2 to mid LAD- 2018) History of cholecystectomy Lap cholecystectomy, open repair of umbilical hernia (12/09/2020): Grade 2 view, MAC #3, ETT 7.5 at [facility] History of colonoscopy with polypectomy History of cystoscopy History of eye surgery History of hernia repair History of malignant melanoma of skin Back, eyelid History of thyroidectomy, total History of vasectomy Status post double vessel coronary artery bypass CABG (2018) Status post operation on nasal sinus 2002 Family History Father Cancer Prostate and bladder Mother Stroke Breast cancer Social History (Updated 01/13/21 @ 15:31 by Lia Motley RN) Smoking Status: Former smoker Age Quit Using Tobacco: 27; Number of Years Since Quit: 50; Second Hand Exposure: No; Do You Dip or Chew Tobacco: No; Tobacco Cessation Education Requested by Patient: No Hx Alcohol Use: Yes Alcohol type: beer and hard liquor Alcohol Intake Frequency Comment: 1-2 drinks per day Hx Substance Use: No Preferred Language: Senegalese Communication Ability: Effective Nuisance Wildlife Trapper Required: No Beliefs That Will Affect Care: None marital status: Current Living Situation: Spouse current occupational status: retired current occupation: Retired Other Information That Helps Us Care for You: No Feels Safe at Home: Yes Safety Concerns: Feels Safe At This Time Assistive Devices: None and Glasses Review of Systems Review of Systems: As per HPI, all 10 systems reviewed, all other ROS negative Physical Exam Physical Exam: GENERAL: Slightly uncomfortable, pleasant, no respiratory distress SKIN: Normal color, warm HEENT: Partial alopecia, [place] palpebral conjunctivae, no ptosis, dry buccal mucosa NECK : Supple, no tenderness CHEST : CTA, no tenderness HEART : RRR, no obvious murmurs ABDOMEN: Some distention, epigastric tenderness EXTREMITIES : No LE swelling/tenderness, no other conspicuous deformities noted NEUROLOGIC : Coherent, no facial asymmetry, no other gross focality Results & Data Results & Data ([facility]) Vital Signs (Past 12 Hours) Vital Signs Temp Pulse Pulse Resp BP BP Pulse Ox 01/31/21 23:28 69 18 180/88 H 94 01/31/21 22:26 80 20 95 01/31/21 21:31 36.8 C 77 20 211/92 H 95 Laboratory Results Laboratory Results WBC 15.33 K/uL (4.8-10.8) H 01/31/21 22:09 RBC 4.80 M/uL (4.7-6.1) 01/31/21 22:09 Hgb 14.9 g/dL (14.0-18.0) 01/31/21 22:09 POC Hgb 13.9 g/dl (14.0-18.0) L 01/31/21 22:17 Hct 42.1 % (42-52) 01/31/21 22:09 POC Hct 41 % (42-52) L 01/31/21 22:17 MCV 87.7 fL (80-100) 01/31/21 22:09 MCH 31.0 pg (25-34) 01/31/21 22:09 MCHC 35.4 g/dL (32-36) 01/31/21 22:09 RDW Std Deviation 45.1 fL (36.4-46.3) 01/31/21 22:09 RDW Coeff of Valentino 14.1 % (11.5-14.5) 01/31/21 22:09 Plt Count 198 K/uL (130-400) 01/31/21 22:09 MPV 10.7 fL (7.4-10.4) H 01/31/21 22:09 Immature Gran % (Auto) 0.3 % 01/31/21 22:09 Neut % (Auto) 84.0 % 01/31/21 22:09 Lymph % (Auto) 7.4 % 01/31/21 22:09 [place] % (Auto) 8.1 % 01/31/21 22:09 Eos % (Auto) 0.1 % 01/31/21 22:09 Baso % (Auto) 0.1 % 01/31/21 22:09 Neut # (Auto) 12.89 K/uL (1.4-6.5) H 01/31/21 22:09 Lymph # (Auto) 1.13 K/uL (1.2-3.4) L 01/31/21 22:09 [place] # (Auto) 1.24 K/uL (0.11-0.59) H 01/31/21 22:09 Eos # (Auto) 0.02 K/uL (0-0.5) 01/31/21 22:09 Baso # (Auto) 0.01 K/uL (0-0.2) 01/31/21 22:09 Immature Gran # (Auto) 0.04 K/uL (0.00-0.02) H 01/31/21 22:09 POC Sodium 138 mmol/L (135-144) 01/31/21 22:17 Sodium 138 mmol/L (136-145) 01/31/21 22:09 POC Potassium 4.5 mmol/L (3.3-5.0) 01/31/21 22:17 Potassium 3.4 mmol/L (3.5-5.1) L 01/31/21 22:09 POC Chloride 105 mmol/L (101-112) 01/31/21 22:17 Chloride 110 mmol/L (98-107) H 01/31/21 22:09 Carbon Dioxide 22 mmol/L (21-32) 01/31/21 22:09 POC Total CO2 20 mmol/L (24-31) L 01/31/21 22:17 Anion Gap 7.0 (3-11) 01/31/21 22:09 POC Anion Gap 19.0 mmol/L (16-25) 01/31/21 22:17 POC BUN 26 mg/dl (7-18) H 01/31/21 22:17 BUN 21 mg/dl (7-18) H 01/31/21 22:09 Creatinine 0.98 mg/dl (0.6-1.4) 01/31/21 22:09 POC Creatinine 1.0 mg/dl (0.6-1.3) 01/31/21 22:17 Est Cr Clr Drug Dosing 65.7 ml/min 01/31/21 22:09 Est GFR ( Amer) 85.2 ml/min 01/31/21 22:09 Est GFR (Non-Af Amer) 73.6 ml/min 01/31/21 22:09 BUN/Creatinine Ratio 21.6 (10-20) H 01/31/21 22:09 Glucose 107 mg/dl (70-99) H 01/31/21 22:09 POC Glucose (other) 111 mg/dl (70-99) H 01/31/21 22:17 Calcium 9.0 mg/dl (8.5-10.1) 01/31/21 22:09 POC Ioniz Calcium Ruben 1.11 mmol/l (1.12-1.32) L 01/31/21 22:17 Magnesium 2.1 mg/dl (1.8-2.4) 01/31/21 22:09 Total Bilirubin 1.1 mg/dl (0.2-1) H 01/31/21 22:09 AST 20 U/L (15-37) 01/31/21 22:09 ALT 29 U/L (12-78) 01/31/21 22:09 Alkaline Phosphatase 93 U/L (45-117) 01/31/21 22:09 Total Protein 6.6 gm/dl (6.4-8.2) 01/31/21 22:09 Albumin 3.8 gm/dl (3.4-5.0) 01/31/21 22:09 Globulin 2.8 gm/dl (2.5-4.0) 01/31/21 22:09 Albumin/Globulin Ratio 1.3 (0.9-2) 01/31/21 22:09 Lipase 330 U/L (73-393) 01/31/21 22:09 Urine Color Yellow 01/31/21 23:05 Urine Appearance Clear (Clear) 01/31/21 23:05 Urine pH 6.5 (4.5-7.5) 01/31/21 23:05 Ur Specific [place] 1.015 (1.000-1.030) 01/31/21 23:05 Urine Protein Negative (Negative) 01/31/21 23:05 Urine Glucose (UA) Negative (Negative) 01/31/21 23:05 Urine Ketones Negative (Negative) 01/31/21 23:05 Urine Blood Negative (Negative) 01/31/21 23:05 Urine Nitrite Negative (Negative) 01/31/21 23:05 Urine Bilirubin Negative (Negative) 01/31/21 23:05 Urine Urobilinogen Negative (Negative) 01/31/21 23:05 Ur Leukocyte Esterase Negative (Negative) 01/31/21 23:05 COVID-19 Eval Order Covid19 at [facility] 01/31/21 23:[address] abdomen pelvis initial read: Previous cholecystectomy. Atrophic left lobe of the liver with multiple cysts. Verymild central mesenteric edema near the inferior aspect of the pancreatic head. Correlate for possible pancreatitis. No pancreatic duct dilatation. Large right renal pelvis or parapelvic cyst which is stable. No ureteral dilatation. Diverticulosiswithout diverticulitis. EKG as per my interpretation:Rate 70, NSR, normal axis, incomplete RBBB, inferior infarct (1) Pancreatitis Acute pancreatitis complication: unspecified Chronicity: acute Pancreatitis type: unspecified pancreatitis type Qualified Code(s): K85.90 - Acute pancreatitis without necrosis or infection, unspecified
[2021-02-01] MEDS ORDERED: traMADol HCL 50 MG TABLET PO PRN (00:42)
[2021-02-01] MEDS ORDERED: ACETAMINOPHEN 325 MG TAB PO PRN ×2 (00:42→02:22)
[2021-02-01] MEDS ORDERED: MoRPHine SULFATE 4 MG/ML 1 ML CARP\\VIAL IV PRN (00:42)
[2021-02-01] MEDS ORDERED: POLYETHYLENE (MIRALAX) 17 GM PACK PO PRN (02:22)
[2021-02-01] MEDS ORDERED: LORazepam 0.25 MG/0.5 ML VIAL IV PRN (02:22)
[2021-02-01] MEDS ORDERED: guaiFENesin 600 MG TABCR PO PRN (02:22)
[2021-02-01] MEDS ORDERED: MECLIZINE HCL 25 MG TAB PO PRN (02:22)
[2021-02-01] MEDS: DOCUSATE SODIUM/SENNA 50/8.6MG TAB PO SCH ×2 (03:11→09:30)
[2021-02-01] MEDS: TAMSULOSIN HCL 0.4 MG CAP PO SCH ×2 (03:11→20:39)
[2021-02-01] MEDS: POTASSIUM CHLORIDE 40 MEQ in LACTATED RINGER'S 1,000 ML IV SCH ×2 (03:12→09:01)
[2021-02-01] MEDS ORDERED: CIPROFLOXACIN CONSULT ACTIVE PRN (03:19)
[2021-02-01] MEDS: LEVOTHYROXINE SODIUM 137 MCG TABLET PO SCH (06:13)
[2021-02-01 06:56] LABS: Basophils # (auto) 0.01 K/uL (0-0.2); Basophils % (auto) 0.1 %; Eosinophils # (auto) 0.01 K/uL (0-0.5); Eosinophils % (auto) 0.1 %; Hematocrit (blood only) 41.2 % (42-52); Hemoglobin 13.9 g/dL (14.0-18.0); Immature Granulocytes # (auto) 0.06 K/uL (0.00-0.02); Immature Granulocytes % (auto) 0.4 %; Lymphocytes # (auto) 0.93 K/uL (1.2-3.4); Lymphocytes % (auto) 6.8 %; Mean Corpuscular Hemoglobin 30.4 pg (25-34); Mean Corpuscular Hgb Conc 33.7 g/dL (32-36); Mean Corpuscular Volume 90.2 fL (80-100); Monocytes # (auto) 1.41 K/uL (0.11-0.59); Monocytes % (auto) 10.4 %; Neutrophils # (auto) 11.17 K/uL (1.4-6.5); Neutrophils % (auto) 82.2 %; Platelet Count 179 K/uL (130-400); RDW Coefficient of Variation 14.6 % (11.5-14.5); RDW Standard Deviation 47.7 fL (36.4-46.3); Red Blood Count 4.57 M/uL (4.7-6.1); White Blood Count 13.59 K/uL (4.8-10.8)
[2021-02-01 07:34] LABS: Albumin Globulin Ratio 1.4 (0.9-2); Albumin Level 3.4 gm/dl (3.4-5.0); BUN Creatinine Ratio 20.6 (10-20); Calcium 8.3 mg/dl (8.5-10.1); Creatinine Clr Calc Pharmacy 71.2 ml/min; Est GFR (African American) 94.5 ml/min; Est GFR (Non-African American) 81.5 ml/min; Globulin 2.4 gm/dl (2.5-4.0); Potassium 4.3 mmol/L (3.5-5.1); Total Protein 5.8 gm/dl (6.4-8.2)
[2021-02-01] MEDS: SERTRALINE HCL 50 MG TABLET PO SCH (08:05)
[2021-02-01] MEDS: FLUTICASONE/VILANTEROL 200/25MCG 14 PUFFS/INHALER INH SCH (08:06)
[2021-02-01] MEDS: ENOXAPARIN INJ 40 MG/0.4 ML SYR SQ SCH (08:06)
[2021-02-01] MEDS: TRIAMCINOLONE ACET NASAL SPRAY 10.8ML BTL SCH ×2 (08:06→20:38)
[2021-02-01] MEDS: ASPIRIN 81 MG ECTAB PO SCH ×2 (08:06→20:39)
[2021-02-01] MEDS ORDERED: LOSARTAN POTASSIUM 50 MG TAB PO SCH (09:00)
[2021-02-01] MEDS ORDERED: CIPROFLOXACIN 500 MG TAB PO SCH (09:00)
[2021-02-01] MEDS ORDERED: FAMOTIDINE 20 MG TAB PO SCH (09:00)
[2021-02-01] MEDS ORDERED: ADVANCED PROBIOTIC 1250 MG CAPSULE PO SCH (09:00)
--- NOTE | 2021-02-01 09:14 | CT Scan Report ---
ABDOMEN AND PELVIS CT WITH IV CONTRAST CT DOSE: 798.69 mGycm HISTORY: Mid abd pain s/p stent removal TECHNIQUE: Multiaxial CT images of the abdomen and pelvis were performed following the use of intrave nous contrast. A dose lowering technique was utilized adhering to the principles of ALARA. COMPARISON STUDY: Abdomen and pelvis CT 12/06/2020. FINDINGS: Bibasilar linear densities consistent with subsegmental atelectasis. No pneumoperitoneum. N o pneumatosis. Stable small sclerotic foci within the sacrum/pelvis. There is also stable sclerotic f ocus within the right lateral seventh rib. There are poststernotomy changes. Prior cholecystectomy. P rogressive moderate left intrahepatic bile duct dilatation. The common bile duct is also slightly inc reased in size and measures up to 9 mm in diameter. The patient is status post removal of the common bile duct stent. There is mild peripancreatic inflammatory change surrounding the head/uncinate proce ss of the pancreas. This likely represents a mild acute pancreatitis. The main portal vein is patent. Bilateral renal cysts are again noted. No evidence for pancreatic necrosis. There is also mild perip ortal inflammatory change. The spleen and adrenal glands unremarkable. Calcified plaque within the no rmal caliber abdominal aorta. Multiple brachytherapy seeds again noted within the prostate gland. The bladder is unremarkable. Colonic diverticulosis. No evidence for acute diverticulitis. No bowel wall thickening or obstruction. No pelvic lymphadenopathy. IMPRESSION: 1. Interval removal of the common bile duct stent with mild inflammatory change adjacent to the pancr eatic head/uncinate process. Therefore, this favors an acute pancreatitis. 2. Mild dilatation of main pancreatic duct and moderate left intrahepatic bile duct dilatation which has progressed. 3. Cholecystectomy. 4. Additional findings as described above. ACT 112: Negative or not required by law. Electronically signed by: Jerry Yeager M.D. 02/01/2021 9:13 AM
[2021-02-01] MEDS: LACTATED RINGER'S 1,000 ML IV SCH ×2 (09:30→17:08)
[2021-02-01] MEDS: LOSARTAN POTASSIUM 50 MG TAB PO SCH (09:31)
[2021-02-01] MEDS ORDERED: MoRPHine SULFATE 4 MG/ML 1 ML CARP\\VIAL IV STA (10:46)
[2021-02-01] MEDS ORDERED: bisacodyL 10 MG SUPP PR PRN (10:46)
[2021-02-01] MEDS ORDERED: ACETAMINOPHEN 1,000 MG/100 ML VIAL IV PRN (10:49)
[2021-02-01] MEDS ORDERED: FAMOTIDINE 20 MG in SYRINGE 3 ML IV PRN (11:00)
--- NOTE | 2021-02-01 13:29 | Electrocardiogram Report ---
Test Reason : Blood Pressure : / mmHG Vent. Rate : 068 BPM Atrial Rate : 068 BPM P-R Int : 148 ms QRS Dur : 102 ms QT Int : 434 ms P-R-T Axes : 061 010 028 degrees QTc Int : 461 ms Normal sinus rhythm Inferior infarct , age undetermined Abnormal ECG When compared with ECG of 08-DEC-2020 13:45, Sinus rhythm has replaced Junctional rhythm Incomplete right bundle branch block is no longer Present Confirmed by Kevin Carrizales ([id number]) on 02/01/2021 1:28:40 PM Referred By: Robyn Heller Confirmed By:Kevin Carrizales
--- NOTE | 2021-02-01 13:30 | Gastrointestinal Consultation ---
Date of Consultation February 01, 2021 Assessment & Plan (1) Acute pancreatitis: (2) Leukocytosis: Most likely mild Post-ERCP pancreatitis without alarm findings on labs or imaging. Recommend NPO Continue IVF Continue supportive care with narcotic analgesics and antiemetics Continue IV Abx as per hospitalist team Discussed case with Dr. Heller, he will see the patient in the AM History of Present Illness Reason for Consultation: Pancreatitis Attending Physician: Zhanna Fisher, DO History of Present Illness Judith Crockett is a pleasant 80 yo CM who presented to the ER last evening with complaints of epigastric abdominal pain. He underwent an EUS/ERCP on 01/30/[address] Heller for biliary stent removal, and did have a balloon sweep of the bile duct secondary to retained sludge/stones, and did very well. He states upon eating that evening he developed mild nausea. He states he developed some slight pain as well, which progressed over the next 12 hours, prompting him to return to the ER. Upon arrival to the ER, he was noted to have a slightly elevated WBC count, his lipase was normal, and a CT scan showed findings consistent with acute pancreatitis. The CT also showed some mild left intrahepatic ductal dilation which progressed from previous imaging, however, his liver panel was normal. He was subsequently admitted, given IVF, antiemetics PRN, IV Antibiotics and kept NPO. At the time I saw him, he was feeling slightly improved, however, he states he still has epigastric pain described as 3/10 in intensity, non-radiating, which has been alleviated with IV Morphine therapy. He denies any fevers, chills, nausea, vomiting, hematemesis, melena or hematochezia. He denies any further complaints. Allergies Allergy/AdvReac Type Severity Reaction Status Date / Time Beta-Blockers AdvReac Mild History Verified 02/01/21 00:32 (Beta-Adrenergic Bloc intolerance as per records codeine AdvReac Mild N/V Verified 01/31/21 23:43 Home Medications Medication Instructions Recorded Confirmed Type guaifenesin 600 mg tablet, 600 mg PO Q12H PRN 10/31/18 01/30/21 History extended release 12 hr (Mucinex) levothyroxine 137 mcg tablet 137 mcg PO 4XWK 10/31/18 01/30/21 History levothyroxine 150 mcg tablet 150 mcg PO 3XWK 10/31/18 01/30/21 History (Synthroid) potassium chloride 10 mEq 10 meq PO QAM 10/31/18 01/30/21 History tablet,extended release(part/cryst) (Klor-Con M) sertraline 50 mg tablet (Zoloft) 50 mg PO QAM 10/31/18 01/30/21 History tamsulosin 0.4 mg capsule (Flomax) 0.4 mg PO HS 10/31/18 01/30/21 History triamcinolone acetonide 55 mcg 1 spray INTRANASAL BID 10/31/18 01/30/21 History nasal spray aerosol acetaminophen 500 mg capsule 500 mg PO UD PRN 07/12/19 01/13/21 History albuterol sulfate 90 mcg/actuation 2 puff INHALATION Q6H PRN 07/12/19 01/30/21 History aerosol inhaler fluticasone 250 mcg-salmeterol 50 1 inh INHALATION BID 07/12/19 01/30/21 History mcg/dose blistr powdr for inhalation (Wixela Inhub) ipratropium 0.5 mg-albuterol 3 mg 3 ml INHALATION Q4H PRN 07/12/19 01/30/21 History (2.5 mg base)/3 mL nebulization soln Probiotic 1 cap PO QAM 07/24/19 01/30/21 History meclizine 25 mg tablet 25 mg PO Q6 PRN 07/24/19 01/13/21 History atorvastatin 80 mg tablet 80 mg PO HS 12/06/20 01/30/21 History cholecalciferol (vitamin D3) 25 25 mcg PO QAM 12/06/20 01/30/21 History mcg (1,000 unit) tablet (Vitamin D3) famotidine 20 mg tablet (Pepcid) 20 mg PO QAM 12/06/20 01/30/21 History hydrochlorothiazide 12.5 mg capsule 12.5 mg PO QAM 12/06/20 01/30/21 History losartan 100 mg tablet 100 mg PO QAM 12/06/20 01/30/21 History verapamil 180 mg tablet,extended 180 mg PO HS 12/06/20 01/30/21 History release aspirin 81 mg tablet,delayed 81 mg PO BID 01/13/21 01/30/21 History release ciprofloxacin HCl 500 mg tablet 500 mg PO BID #10 tab 01/30/21 Rx (Cipro) Patient History Medical History (Updated 02/01/21 @ 13:41 by Ramiro Saleem DO) Afib post-op CABG, no known recurrences per pt Asthma BPH (benign prostatic hyperplasia) CAD (coronary artery disease) CABG (2018) + stents (MARY to prox Lcx, MARY x2 to mid LAD- 2018) Clostridium difficile carrier COPD (chronic obstructive pulmonary disease) History of Graves' disease History of pulmonary embolism 2010, AC since discontinued Hypertension Hypothyroidism Prostate cancer S/P seed implant Skin cancer Surgical History H/O rotator cuff surgery History of appendectomy History of basal cell carcinoma (BCC) excision History of cardiac cath CABG (2018) + stents (MARY to prox Lcx, MARY x2 to mid LAD- 2018) History of cholecystectomy Lap cholecystectomy, open repair of umbilical hernia (12/09/2020): Grade 2 view, MAC #3, ETT 7.5 at [facility] History of colonoscopy with polypectomy History of cystoscopy History of eye surgery History of hernia repair History of malignant melanoma of skin Back, eyelid History of thyroidectomy, total History of vasectomy Status post double vessel coronary artery bypass CABG (2019) Status post operation on nasal sinus 2002 Family History Father Cancer Prostate and bladder Mother Stroke Breast cancer Social History Smoking Status: Former smoker Age Quit Using Tobacco: 27; Number of Years Since Quit: 50; Second Hand Exposure: No; Do You Dip or Chew Tobacco: No; Tobacco Cessation Education Requested by Patient: No Hx Alcohol Use: Yes Alcohol type: beer and hard liquor Alcohol Intake Frequency Comment: 1-2 drinks per day Hx Substance Use: No Preferred Language: Malian Communication Ability: Effective Press Department Manager Required: No Beliefs That Will Affect Care: None marital status: Current Living Situation: Spouse current occupational status: retired current occupation: Retired Other Information That Helps Us Care for You: No Feels Safe at Home: Yes Safety Concerns: Feels Safe At This Time Assistive Devices: None and Glasses Review of Systems Constitutional: as per Subjective / HPI Eyes: as per Subjective / HPI Ear, Nose, Mouth, Throat: as per Subjective / HPI Respiratory: as per Subjective / HPI Cardiovascular: as per Subjective / HPI Gastrointestinal: as per Subjective / HPI Musculoskeletal: as per Subjective / HPI Integumentary: as per Subjective / HPI Neurologic: as per Subjective / HPI Psychiatric: as per Subjective / HPI Endocrine: as per Subjective / HPI Hematologic / Lymphatic: as per Subjective / HPI Allergy / Immunological: as per Subjective / HPI Physical Exam Constitutional: WD/WN, vitals as above Eyes: + anicteric sclerae ENMT: external ear and nose normal, oropharynx normal Neck: normal visual inspection Respiratory: normal respiratory effort, lungs clear to auscultation Cardiovascular: RRR, no murmur, no edema Gastrointestinal (Abdomen): Inspection/Auscultation: abdomen normal to inspection and normal bowel sounds; abdomen not distended Percussion/Palpation: + abdomen tender (epigastric area) and abdomen soft Skin: no rashes, warm and dry Psychiatric: A+Ox3, euthymic affect Results & Data ([facility]) Vital Signs (Past 12 Hours) Vital Signs Temp Pulse Pulse Resp BP BP Pulse Ox 02/01/21 11:29 36.6 C 47 L 16 109/56 L 93 02/01/21 09:30 95/57 L 02/01/21 08:03 58 L 102/61 02/01/21 07:59 36.4 C L 61 16 90/55 L 91 02/01/21 07:22 65 02/01/21 04:45 76 162/75 H 02/01/21 03:20 36.5 C 75 20 198/72 H 97 02/01/21 01:53 78 20 156/87 H 97 PG Care Time/CCT Total # of Minutes Spent Total Time Spent with Patient: Total time spent is greater than 50% in coordination of care (as documented) at patient's floor/unit and/or counseling patient: Coding Level of Care Code 65737 Initial Inpt Care Lvl 3 Diagnoses Acute pancreatitis K85.90 Leukocytosis D72.829 Leukocytosis type: unspecified (1) Leukocytosis Leukocytosis type: unspecified Qualified Code(s): D72.829 - Elevated white bl ood cell count, unspecified
[2021-02-01] MEDS: MoRPHine SULFATE 4 MG/ML 1 ML CARP\\VIAL IV PRN ×3 (14:00→23:30)
[2021-02-01] MEDS: HYDROCODONE/ACETAMOPHEN 5/325MG TAB PO PRN (15:41)
--- NOTE | 2021-02-01 17:03 | Hospitalist Progress Note ---
Date of Service February 01, 2021 Assessment & Plan (1) Post-ERCP acute pancreatitis: Plan: Clinical pancreatitis without lipasemia. Bowel rest recommended with postprandial pain after breakfast this morning. Continue IV fluids and supportive care. Continue ciprofloxacin as a preventive measure post ERCP for total 5 days. GI following. (2) BPH (benign prostatic hyperplasia): Plan: Continue Flomax per home regimen. (3) Hypothyroidism: Plan: Continue Synthroid per home regimen. (4) Coronary atherosclerosis of [place] coronary artery: Plan: Chronic, stable, continue medical management including baby aspirin twice daily, atorvastatin 80 mg p.o. nightly. Takes verapamil 180 mg nightly. (5) HTN (hypertension): Plan: BP controlled, holding HCTZ and continue Cozaar 100 mg p.o. every morning. (6) Depression: Plan: Cont sertraline per home regimen. (7) DVT prophylaxis: Plan: Lovenox Full Code Dispo-to home when pain improved and tolerating food. Zhanna Fisher DO [facility] Hospitalist Admission and Anticipated Discharge Date Admission Date: February 01, 2021 Subjective 80-year-old man who recently underwent ERCP acute epigastric pain in the recovery room postoperatively. He subsequently went home and pain was worse with any food or drink. Pain is severe requiring narcotics. Denies chest pain or shortness of breath. Review of Systems Review of Systems: All systems were reviewed and negative except as indicated in HPI above. Physical Exam Physical Exam: CONSTITUTIONAL: WNWD, vitals as above, generally well- appearing, moderate distress from pain EYES: normal conjunctivae, no scleral icterus ENT: external ear and nose normal, MMM RESPIRATORY: clear to auscultation bilaterally, no crackles, rales or wheezes, normal respiratory effort CARDIOVASCULAR: regular rate and rhythm, S1 and 2 heard without murmurs, gallops or rubs, no JVD, no peripheral edema GASTROINTESTINAL: soft, TTP epigastric > LUQ MUSCULOSKELETAL: strength 5/5 throughout, head is normocephalic and atraumatic, neck supple, normal palpation of chest wall without tenderness SKIN: warm and dry NEUROLOGIC: CN 2-12 grossly intact, no sensory deficit, normal cognition, normal speech PSYCHIATRIC: alert cooperative and oriented to person, place and time. Results & Data Results & Data ([facility]) Vital Signs (Past 12 Hours) Vital Signs Temp Pulse Pulse Resp BP Pulse Ox 02/01/21 15:54 36.5 C 69 16 149/66 H 93 02/01/21 15:01 65 02/01/21 11:29 36.6 C 47 L 16 109/56 L 93 02/01/21 09:30 95/57 L 02/01/21 08:03 58 L 102/61 02/01/21 07:59 36.4 C L 61 16 90/55 L 91 02/01/21 07:22 65 Laboratory Results Short CBC 01/31/21 02/01/21 Range/Units 22:09 06:32 WBC 15.33 H 13.59 H (4.8-10.8) K/uL Hgb 14.9 13.9 L (14.0-18.0) g/dL Hct 42.1 41.2 L (42-52) % Plt Count 198 179 (130-400) K/uL BMP 01/31/21 02/01/21 22:09 06:32 Sodium 138 141 Potassium 3.4 L 4.3 D Chloride 110 H 113 H Carbon Dioxide 22 27 BUN 21 H 18 Creatinine 0.98 0.90 Glucose 107 H 96 Calcium 9.0 8.3 L Liver Function 01/31/21 02/01/21 Range/Units 22:09 06:32 Total Bilirubin 1.1 H 1.0 (0.2-1) mg/dl AST 20 25 (15-37) U/L ALT 29 33 (12-78) U/L Alkaline Phosphatase 93 82 (45-117) U/L Albumin 3.8 3.4 (3.4-5.0) gm/dl Urine 01/31/21 Range/Units 23:05 Urine Color Yellow Urine Appearance Clear (Clear) Urine pH 6.5 (4.5-7.5) Ur Specific [place] 1.015 (1.000-1.030) Urine Protein Negative (Negative) Urine Glucose (UA) Negative (Negative) Medications Administered Current Inpatient Medications Hydrocodone Bitart/Acetaminophen (Hydrocodone/Acetamophen 5/325mg Tab) 1 - 2 tab PO Q6H PRN PRN Reason: Pain Stop: 02/15/21 10:45 Last Admin: 02/01/21 15:41 Dose: 2 tab Documented by: Aspirin (Aspirin 81 Mg Ectab) 81 mg PO BID JOHANA Stop: 03/03/21 08:59 Last Admin: 02/01/21 08:06 Dose: 81 mg Documented by: Atorvastatin Calcium (Atorvastatin 40 Mg Tab) 80 mg PO HS [facility] Stop: 03/03/21 20:59 Bisacodyl (Bisacodyl 10 Mg Supp) 10 mg NV DAILY PRN PRN Reason: Constipation Stop: 03/03/21 10:45 Enoxaparin Sodium (Enoxaparin Inj 40 Mg/0.4 Ml Syr) 40 mg SQ QAM JOHANA Stop: 03/03/21 08:59 Last Admin: 02/01/21 08:06 Dose: 40 mg Documented by: Fluticasone/Vilanterol (Fluticasone/Vilanterol 200/25mcg 14 Puffs/Inhaler) 1 puffs INH DAILY [facility] Stop: 03/03/21 08:59 Last Admin: 02/01/21 08:06 Dose: 1 puffs Documented by: Guaifenesin (Guaifenesin 600 Mg Tabcr) 600 mg PO Q12H PRN PRN Reason: Congestion Stop: 03/03/21 02:21 Promethazine HCl 12.5 mg/ (Sodium Chloride) 50.5 mls @ 202 mls/hr IV Q6H PRN PRN Reason: Nausea And Vomiting Stop: 03/03/21 00:41 Lorazepam (Ativan) 0.25 mg in 0.5 mls @ 0.5 mls/min IV Q4H PRN PRN Reason: Anxiety Stop: 03/03/21 02:21 Lactated Ringer's (Lr) 1,000 mls @ 125 mls/hr IV .Q8H JOHANA Stop: 03/03/21 08:59 Last Infusion: 02/01/21 11:01 Dose: 125 mls/hr Documented by: Ciprofloxacin (Cipro / D5w) 400 mg in 200 mls @ 100 mls/hr IV Q12H JOHANA; Protocol Stop: 02/05/21 19:59 Famotidine 20 mg/ Syringe 5 mls @ 2.5 mls/min IV Q12H PRN PRN Reason: heartburn Stop: 03/03/21 10:59 Acetaminophen (Ofirmev) 1,000 mg in 100 mls @ 400 mls/hr IV Q8H PRN PRN Reason: pain/fever Stop: 02/04/21 10:48 Lactobacillus Acidoph/Casei/Rhamnos (Advanced Probiotic 1250 Mg Capsule) 2 cap PO [facility] Stop: 03/03/21 08:59 Last Admin: 02/01/21 08:05 Dose: 2 cap Documented by: Levothyroxine Sodium (Levothyroxine Sodium 137 Mcg Tablet) 137 mcg PO [id number] [facility] Stop: 03/03/21 06:29 Last Admin: 02/01/21 06:13 Dose: 137 mcg Documented by: Levothyroxine Sodium (Levothyroxine Sodium 150 Mcg Tablet) 150 mcg PO [email or web address]@[id number] [facility] Stop: 03/04/21 06:29 Losartan Potassium (Losartan Potassium 50 Mg Tab) 100 mg PO [facility] Stop: 03/03/21 06:29 Last Admin: 02/01/21 09:31 Dose: Not Given Documented by: Meclizine HCl (Meclizine Hcl 25 Mg Tab) 25 mg PO Q6 PRN PRN Reason: Dizziness Stop: 03/03/21 02:21 Morphine Sulfate (Morphine Sulfate 4 Mg/Ml 1 Ml Carp\Vial) 4 mg IV Q2H PRN PRN Reason: Pain Stop: 02/15/21 10:45 Last Admin: 02/01/21 14:00 Dose: 4 mg Documented by: Polyethylene Glycol (Polyethylene (Miralax) 17 Gm Pack) 17 gm PO DAILY PRN PRN Reason: Constipation Stop: 03/03/21 02:21 Sertraline HCl (Sertraline Hcl 50 Mg Tablet) 50 mg PO [facility] Stop: 03/03/21 08:59 Last Admin: 02/01/21 08:05 Dose: 50 mg Documented by: Tamsulosin HCl (Tamsulosin Hcl 0.4 Mg Cap) 0.4 mg PO [facility] Stop: 03/03/21 02:21 Last Admin: 02/01/21 03:11 Dose: 0.4 mg Documented by: Triamcinolone Acetonide (Triamcinolone Acet Nasal [place] 10.8ml Btl) 1 sprays NA BID [facility] Stop: 03/03/21 08:59 Last Admin: 02/01/21 08:06 Dose: 1 sprays Documented by: Verapamil HCl (Verapamil Hcl 180 Mg Tabcr) 180 mg PO [facility] Stop: 03/03/21 20:59
[2021-02-01] MEDS: CIPROFLOXACIN / D5W 400 MG/200 ML BAG IV SCH (20:34)
[2021-02-01] MEDS: VERAPAMIL HCL 180 MG TABCR PO SCH (20:40)
[2021-02-01] MEDS ORDERED: ATORVASTATIN 40 MG TAB PO SCH (21:00)
[2021-02-01] MEDS ORDERED: FLUTICASONE/VILANTEROL 200/25MCG 14 PUFFS/INHALER INH SCH (21:00)
[2021-02-01] MEDS: PROMETHAZINE HCL 12.5 MG in SODIUM CHLORIDE 0.9% 50 ML IV PRN (23:19)
[2021-02-02] MEDS: LACTATED RINGER'S 1,000 ML IV SCH ×3 (01:29→17:26)
[2021-02-02] MEDS: MoRPHine SULFATE 4 MG/ML 1 ML CARP\\VIAL IV PRN ×5 (03:49→19:43)
[2021-02-02] MEDS: LEVOTHYROXINE SODIUM 150 MCG TABLET PO SCH (06:02)
[2021-02-02] MEDS: PROMETHAZINE HCL 12.5 MG in SODIUM CHLORIDE 0.9% 50 ML IV PRN ×2 (06:17→20:06)
[2021-02-02] MEDS: CIPROFLOXACIN / D5W 400 MG/200 ML BAG IV SCH ×2 (08:14→19:43)
[2021-02-02] MEDS: HYDROCODONE/ACETAMOPHEN 5/325MG TAB PO PRN ×2 (08:16→22:30)
[2021-02-02] MEDS ORDERED: bisacodyL 10 MG SUPP PR ONE (08:46)
--- NOTE | 2021-02-02 08:51 | Gastroenterology Progress Note ---
Date of Service February 02, 2021 Assessment & Plan (1) Post-ERCP acute pancreatitis: Plan: Pt is a 80 y/o male who is s/p ERCP 01/30 w biliary stent and choledocholithiasis removal; admitted w abd pain, CT consistent w pancreatitis. - IVF support w LR - NPO except sips and chips - PPI - KUB today to r/o ileus - Dulcolax 10mg MD x 1 dose - Levsin 0.125mg SL q6hrs prn abd pain - Will repeat CMP and lipase today - Symptomatic management Admission and Anticipated Discharge Date Admission Date: February 01, 2021 Supervising Physician Co-Signing Physician Notes I saw and evaluated the patient. He notes that he seems to have worsening abdominal discomfort this morning. During rounds we had obtained additional labs to include a CMP, repeat lipase and a KUB. The CMP shows that his liver enzymes are within normal limits and his lipase is also not elevated. The patient does have significant distention of the colon which could represent an underlying ileus. The patient reports that his last bowel movement was several days ago. Recommendations MiraLAX 17 g twice daily Dulcolax suppository today We will give a dose of Relistor today Continue antibiotic coverage Levsin sublingual every 4 hours as needed for cramping Subjective Pt reports persistent epigastric abd pain radiating to upper sides Denies n/v. No BM x 3 days Review of Systems Review of Systems: All systems reviewed & are unremarkable except as noted in HPI & below Physical Exam Constitutional: WD/WN, vitals as above well groomed, cooperative and comfortable Eyes: PERRL, conjunctivae normal, anicteric sclerae ENMT: external ear and nose normal, oropharynx normal Respiratory: normal respiratory effort, lungs clear to auscultation Cardiovascular: RRR, no murmur, no edema Gastrointestinal (Abdomen): Abd TTP upper quadrants, mildly distended. BS presently mostly on lower quadrants Skin: no rashes, warm and dry no jaundice Psychiatric: A+Ox3, euthymic affect Lymphatic: no lymphedema Results & Data ([facility]) Vital Signs (Past 12 Hours) Vital Signs Temp Pulse Pulse Resp BP Pulse Ox 02/02/21 08:35 36.8 C 78 20 149/68 H 90 02/02/21 07:12 70 02/02/21 02:47 37.3 C 90 20 168/69 H 93 02/02/21 00:43 64 02/01/21 22:47 36.6 C 81 17 170/68 H 95
[2021-02-02 09:00] LABS: Estimated Average Glucose 103 mg/dl; Hemoglobin A1C 5.2 % (4.5-5.6)
[2021-02-02 09:09] LABS: Hematocrit (blood only) 39.2 % (42-52); Mean Corpuscular Hemoglobin 30.3 pg (25-34); Mean Corpuscular Hgb Conc 33.2 g/dL (32-36); Mean Corpuscular Volume 91.4 fL (80-100); Mean Platelet Volume 10.9 fL (7.4-10.4); Platelet Count 163 K/uL (130-400); RDW Coefficient of Variation 14.9 % (11.5-14.5); RDW Standard Deviation 50.2 fL (36.4-46.3); Red Blood Count 4.29 M/uL (4.7-6.1); White Blood Count 14.26 K/uL (4.8-10.8)
--- NOTE | 2021-02-02 09:36 | XRay Report ---
XR KUB/Abdomen 1 view CLINICAL HISTORY: abdominal pain; r/o ileus COMPARISON STUDY: CT scan performed 07/03/2021 FINDINGS: There is mild gaseous prominence the colon to the level of the splenic flexure. There is no pathologic small bowel dilatation. Degenerative changes are present within the spine. There are surg ical clips in right upper quadrant consistent with a prior cholecystectomy. Prostate radiation therap y seeds are visualized. IMPRESSION: Mild gaseous prominence of the colon to the level of the splenic flexure. ACT 112: Negative or not required by law. Electronically signed by: Can Matos M.D. 02/02/2021 9:35 AM
[2021-02-02 09:37] LABS: Albumin Level 2.8 gm/dl (3.4-5.0); BUN Creatinine Ratio 19.4 (10-20); Bilirubin,Total 1.4 mg/dl (0.2-1); Calcium 7.9 mg/dl (8.5-10.1); Est GFR (African American) 98.7 ml/min; Est GFR (Non-African American) 85.1 ml/min; Globulin 2.8 gm/dl (2.5-4.0); Magnesium 1.9 mg/dl (1.8-2.4); Potassium 3.3 mmol/L (3.5-5.1); Total Protein 5.6 gm/dl (6.4-8.2)
[2021-02-02] MEDS: LOSARTAN POTASSIUM 50 MG TAB PO SCH (09:42)
[2021-02-02] MEDS: FLUTICASONE/VILANTEROL 200/25MCG 14 PUFFS/INHALER INH SCH (09:42)
[2021-02-02] MEDS: TRIAMCINOLONE ACET NASAL SPRAY 10.8ML BTL SCH ×2 (09:42→22:12)
[2021-02-02] MEDS: ENOXAPARIN INJ 40 MG/0.4 ML SYR SQ SCH (09:42)
[2021-02-02] MEDS: ASPIRIN 81 MG ECTAB PO SCH ×2 (09:42→21:44)
[2021-02-02] MEDS: SERTRALINE HCL 50 MG TABLET PO SCH (09:42)
[2021-02-02] MEDS ORDERED: METHYLNALTREXONE BROMIDE 12 MG/0.6 ML VIAL SQ ONE (09:52)
[2021-02-02] MEDS: PANTOprazole 40 MG TAB PO SCH (10:30)
--- NOTE | 2021-02-02 11:45 | Hospitalist Progress Note ---
Date of Service February 02, 2021 Assessment & Plan (1) Post-ERCP acute pancreatitis: Plan: Clinical pancreatitis without lipasemia. Continue Bowel rest. Continue IV fluids and supportive care. Continue ciprofloxacin as a preventive measure post ERCP for total 5 days. WBCs are rising. GI following. (2) BPH (benign prostatic hyperplasia): Plan: Continue Flomax per home regimen. (3) Hypothyroidism: Plan: Continue Synthroid per home regimen. (4) Coronary atherosclerosis of [place] coronary artery: Plan: Chronic, stable, continue medical management including baby aspirin twice daily, atorvastatin 80 mg p.o. nightly. Takes verapamil 180 mg nightly. (5) HTN (hypertension): Plan: BP up, Continue Cozaar 100 mg p.o. (6) Depression: Plan: Cont sertraline per home regimen. (7) DVT prophylaxis: Plan: Lovenox Full Code Dispo-to home when pain improved and tolerating food. Labs Checked-Replete K ROS-No Headache, No Visual Changes, No Nausea, No Vomiting, No Fever, No Chills, No Neck Pain or Stiffness, No Chest Pain, No Palpitations, No SOB, No ALEXANDER, No Cough, No Sputum, No Wheezing, +Abdominal Pain, No Diarrhea, No Hematemesis, No Hemoptysis, No Unexpected Weight Loss, No Flank pain, No Melena, No Hematochezia, No Frequency, No Urgency, No Burning, No Hematuria, No Rashes, No Diaphoresis. Appetite is Normal Physical Exam Gen-AAO x 3, NAD, Afebrile Head-NCAT, EOMI, PERRLA, Anicteric Sclera, No Posterior Pharyngeal Erythema Neck-Supple, No JVD, No Thyromegaly, No Masses, No LAD, No Bruits Lungs-Clear to Auscultation Bilaterally, No Rales, No Rhonchi, No Wheezing, No Crepitus Chest-No S4, +S1, +S2, No S3, No Murmurs, No Rubs, No Gallops, No Ectopy Abdomen-Soft, Bowel Sounds Present, Tender, Non Distended, No Hepatomegaly, No Splenomegaly, No Palpable Masses, No Rebound, No Rigidity, No Guarding Musculoskeletal-Full Range of Motion Bilaterally, No CVAT Extremities-No Cyanosis, No Clubbing, No Edema Nuero-Cranial Nerves II-XII grossly intact, Motor WNL, DTRs WNL, Strength WNL, Non Focal Psych-Normal Mood Admission and Anticipated Discharge Date Admission Date: February 01, 2021 Results & Data Results & Data ([facility]) Vital Signs (Past 12 Hours) Vital Signs Temp Pulse Pulse Resp BP Pulse Ox 02/02/21 08:35 36.8 C 78 20 149/68 H 90 02/02/21 07:12 70 02/02/21 02:47 37.3 C 90 20 168/69 H 93 02/02/21 00:43 64
[2021-02-02] MEDS: POTASSIUM CHLORIDE CRTAB 20 MEQ TABCR PO SCH ×2 (11:56→21:44)
[2021-02-02] MEDS ORDERED: HYDROmorphone INJ 0.5 MG/0.5 ML SYR IV STA (20:14)
[2021-02-02] MEDS: TAMSULOSIN HCL 0.4 MG CAP PO SCH (21:44)
[2021-02-02] MEDS: VERAPAMIL HCL 180 MG TABCR PO SCH (21:44)
[2021-02-03] MEDS: LACTATED RINGER'S 1,000 ML IV SCH ×3 (02:37→22:40)
[2021-02-03] MEDS: MoRPHine SULFATE 4 MG/ML 1 ML CARP\\VIAL IV PRN (05:42)
[2021-02-03] MEDS: LEVOTHYROXINE SODIUM 137 MCG TABLET PO SCH (06:26)
[2021-02-03 08:27] LABS: Hematocrit (blood only) 36.5 % (42-52); Hemoglobin 12.3 g/dL (14.0-18.0); Mean Corpuscular Hemoglobin 30.8 pg (25-34); Mean Corpuscular Hgb Conc 33.7 g/dL (32-36); Mean Corpuscular Volume 91.5 fL (80-100); Mean Platelet Volume 10.9 fL (7.4-10.4); Platelet Count 148 K/uL (130-400); RDW Coefficient of Variation 14.3 % (11.5-14.5); RDW Standard Deviation 48.7 fL (36.4-46.3); Red Blood Count 3.99 M/uL (4.7-6.1); White Blood Count 12.88 K/uL (4.8-10.8)
[2021-02-03 08:54] LABS: Albumin Globulin Ratio 0.8 (0.9-2); Albumin Level 2.5 gm/dl (3.4-5.0); BUN Creatinine Ratio 21.4 (10-20); Bilirubin,Total 1.4 mg/dl (0.2-1); Calcium 7.9 mg/dl (8.5-10.1); Creatinine Clr Calc Pharmacy 92.7 ml/min; Est GFR (African American) 105.4 ml/min; Est GFR (Non-African American) 90.9 ml/min; Potassium 3.8 mmol/L (3.5-5.1); Total Protein 5.5 gm/dl (6.4-8.2)
[2021-02-03] MEDS: HYDROCODONE/ACETAMOPHEN 5/325MG TAB PO PRN ×3 (08:58→20:45)
[2021-02-03] MEDS: CIPROFLOXACIN / D5W 400 MG/200 ML BAG IV SCH ×2 (08:59→22:31)
[2021-02-03] MEDS: PANTOprazole 40 MG TAB PO SCH (08:59)
[2021-02-03] MEDS: ENOXAPARIN INJ 40 MG/0.4 ML SYR SQ SCH (08:59)
[2021-02-03] MEDS: LOSARTAN POTASSIUM 50 MG TAB PO SCH (08:59)
[2021-02-03] MEDS: ASPIRIN 81 MG ECTAB PO SCH ×2 (09:00→22:36)
[2021-02-03] MEDS: POTASSIUM CHLORIDE CRTAB 20 MEQ TABCR PO SCH ×2 (09:00→22:28)
[2021-02-03] MEDS: TRIAMCINOLONE ACET NASAL SPRAY 10.8ML BTL SCH ×2 (09:00→22:40)
[2021-02-03] MEDS: FLUTICASONE/VILANTEROL 200/25MCG 14 PUFFS/INHALER INH SCH (09:00)
[2021-02-03] MEDS: SERTRALINE HCL 50 MG TABLET PO SCH (09:00)
--- NOTE | 2021-02-03 10:12 | Gastroenterology Progress Note ---
Date of Service February 03, 2021 Assessment & Plan (1) Post-ERCP acute pancreatitis: Plan: Pt is a 80 y/o male who is s/p ERCP 01/30 w biliary stent and choledocholithiasis removal; admitted w abd pain, CT consistent w pancreatitis. His LFTs and lipase had normalized but he had persistent upper abd pain. Noted on KUB signs of ileus. Is passing flatus today and felt a bit better, but no stools yet. - LR @ 75ml/hr - CL diet - PPI daily - Repeat KUB today - Miralax 17g daily - Levsin 0.125mg SL q6hrs prn abd pain - Symptomatic management - Avoid narcotics if possible; encourage OOB; try to maintain K >4 to help promote GI motility Admission and Anticipated Discharge Date Admission Date: February 01, 2021 Supervising Physician Co-Signing Physician Notes I saw and evaluated the patient. He did have evidence of mild post ERCP pancreatitis now resolving. It was complicated by development of an ileus which we are treating with a bowel regimen which included a dose of Relistor. The patient notes that after having passage of gas he starting to feel improved. Recommendations MiraLAX 17 g daily Repeat KUB tomorrow Levsin as needed for abdominal cramping Agree with a liquid diet today Subjective Pt is passing flatus, still c/o upper abd pain. Denies n/v, fever, chills Review of Systems Review of Systems: All systems reviewed & are unremarkable except as noted in HPI & below Physical Exam Constitutional: WD/WN, vitals as above well groomed, cooperative and comfortable Eyes: PERRL, conjunctivae normal, anicteric sclerae ENMT: external ear and nose normal, oropharynx normal Respiratory: normal respiratory effort, lungs clear to auscultation Cardiovascular: RRR, no murmur, no edema Gastrointestinal (Abdomen): Upper abd pain, BS present, abd soft Skin: no rashes, warm and dry no jaundice Psychiatric: A+Ox3, euthymic affect Lymphatic: no lymphedema Results & Data ([facility]) Vital Signs (Past 12 Hours) Vital Signs Temp Pulse Pulse Resp BP Pulse Ox 02/03/21 07:49 36.4 C L 70 20 152/66 H 90 02/03/21 03:18 36.3 C L 63 18 109/63 90 02/03/21 01:15 97 H 02/03/21 00:11 36.8 C 88 18 175/78 H 90
[2021-02-03] MEDS: HYOSCYAMINE SULFATE 0.125 MG TAB SL PRN ×2 (10:34→16:59)
[2021-02-03] MEDS: POLYETHYLENE (MIRALAX) 17 GM PACK PO SCH (11:06)
--- NOTE | 2021-02-03 11:37 | XRay Report ---
KUB CLINICAL HISTORY: re-eval ileus COMPARISON STUDY: CT of the abdomen and pelvis January 31, 2021. KUB February 02, 2021. FINDINGS: Incidental note is made of brachytherapy seeds within the prostate. The bowel gas pattern i s unremarkable. Gaseous distention of the colon has decreased. IMPRESSION: Unremarkable bowel gas pattern. ACT 112: Negative or not required by law. Electronically signed by: Darin Naylor M.D. 02/03/2021 11:35 AM
--- NOTE | 2021-02-03 13:32 | Hospitalist Progress Note ---
Date of Service February 03, 2021 Assessment & Plan (1) Post-ERCP acute pancreatitis: Plan: Clinical pancreatitis without lipasemia. Continue Bowel rest. Continue IV fluids and supportive care. Continue ciprofloxacin as a preventive measure post ERCP for total 5 days. WBCs are rising. GI following. (2) BPH (benign prostatic hyperplasia): Plan: Continue Flomax per home regimen. (3) Hypothyroidism: Plan: Continue Synthroid per home regimen. (4) Coronary atherosclerosis of [place] coronary artery: Plan: Chronic, stable, continue medical management including baby aspirin twice daily, atorvastatin 80 mg p.o. nightly. Takes verapamil 180 mg nightly. (5) HTN (hypertension): Plan: BP up, Continue Cozaar 100 mg p.o. (6) Depression: Plan: Cont sertraline per home regimen. (7) DVT prophylaxis: Plan: Lovenox Full Code Dispo-to home when pain improved and tolerating food. Labs Checked ROS-No Headache, No Visual Changes, No Nausea, No Vomiting, No Fever, No Chills, No Neck Pain or Stiffness, No Chest Pain, No Palpitations, No SOB, No ALEXANDER, No Cough, No Sputum, No Wheezing, Less Abdominal Pain, No Diarrhea, No Hematemesis, No Hemoptysis, No Unexpected Weight Loss, No Flank pain, No Melena, No Hematochezia, No Frequency, No Urgency, No Burning, No Hematuria, No Rashes, No Diaphoresis. Appetite is Normal Physical Exam Gen-AAO x 3, NAD, Afebrile Head-NCAT, EOMI, PERRLA, Anicteric Sclera, No Posterior Pharyngeal Erythema Neck-Supple, No JVD, No Thyromegaly, No Masses, No LAD, No Bruits Lungs-Clear to Auscultation Bilaterally, No Rales, No Rhonchi, No Wheezing, No Crepitus Chest-No S4, +S1, +S2, No S3, No Murmurs, No Rubs, No Gallops, No Ectopy Abdomen-Soft, Bowel Sounds Present, Less Tender, Non Distended, No Hepatomegaly, No Splenomegaly, No Palpable Masses, No Rebound, No Rigidity, No Guarding Musculoskeletal-Full Range of Motion Bilaterally, No CVAT Extremities-No Cyanosis, No Clubbing, No Edema Nuero-Cranial Nerves II-XII grossly intact, Motor WNL, DTRs WNL, Strength WNL, Non Focal Psych-Normal Mood Admission and Anticipated Discharge Date Admission Date: February 01, 2021 Results & Data Results & Data ([place]) Vital Signs (Past 12 Hours) Vital Signs Temp Pulse Pulse Resp BP BP Pulse Ox 02/03/21 11:46 36.6 C 63 20 138/61 94 02/03/21 08:00 66 02/03/21 07:49 36.4 C L 70 20 152/66 H 90 02/03/21 03:18 36.3 C L 63 18 109/63 90
[2021-02-03] MEDS: VERAPAMIL HCL 180 MG TABCR PO SCH (22:36)
[2021-02-03] MEDS: TAMSULOSIN HCL 0.4 MG CAP PO SCH (22:37)
[2021-02-04] MEDS: HYOSCYAMINE SULFATE 0.125 MG TAB SL PRN ×2 (00:02→15:59)
[2021-02-04] MEDS: MoRPHine SULFATE 4 MG/ML 1 ML CARP\\VIAL IV PRN (01:14)
[2021-02-04] MEDS: PROMETHAZINE HCL 12.5 MG in SODIUM CHLORIDE 0.9% 50 ML IV PRN (05:10)
[2021-02-04] MEDS: HYDROCODONE/ACETAMOPHEN 5/325MG TAB PO PRN (06:34)
[2021-02-04] MEDS: LEVOTHYROXINE SODIUM 150 MCG TABLET PO SCH (06:34)
[2021-02-04] MEDS: SERTRALINE HCL 50 MG TABLET PO SCH (07:37)
[2021-02-04] MEDS: CIPROFLOXACIN / D5W 400 MG/200 ML BAG IV SCH (07:37)
[2021-02-04] MEDS: LOSARTAN POTASSIUM 50 MG TAB PO SCH (07:37)
[2021-02-04] MEDS: POTASSIUM CHLORIDE CRTAB 20 MEQ TABCR PO SCH (07:38)
[2021-02-04] MEDS: PANTOprazole 40 MG TAB PO SCH (07:38)
[2021-02-04] MEDS: POLYETHYLENE (MIRALAX) 17 GM PACK PO SCH (07:38)
[2021-02-04] MEDS: FLUTICASONE/VILANTEROL 200/25MCG 14 PUFFS/INHALER INH SCH (07:38)
[2021-02-04] MEDS: ASPIRIN 81 MG ECTAB PO SCH (07:39)
[2021-02-04] MEDS: ENOXAPARIN INJ 40 MG/0.4 ML SYR SQ SCH (07:39)
[2021-02-04] MEDS: TRIAMCINOLONE ACET NASAL SPRAY 10.8ML BTL SCH (07:40)
[2021-02-04 08:19] LABS: Hematocrit (blood only) 37.7 % (42-52); Hemoglobin 12.9 g/dL (14.0-18.0); Mean Corpuscular Hemoglobin 30.4 pg (25-34); Mean Corpuscular Hgb Conc 34.2 g/dL (32-36); Mean Corpuscular Volume 88.7 fL (80-100); Mean Platelet Volume 11.1 fL (7.4-10.4); Platelet Count 182 K/uL (130-400); RDW Standard Deviation 45.7 fL (36.4-46.3); Red Blood Count 4.25 M/uL (4.7-6.1); White Blood Count 12.95 K/uL (4.8-10.8)
[2021-02-04 08:43] LABS: Albumin Globulin Ratio 0.8 (0.9-2); Albumin Level 2.6 gm/dl (3.4-5.0); BUN Creatinine Ratio 13.8 (10-20); Bilirubin,Total 1.1 mg/dl (0.2-1); Calcium 8.2 mg/dl (8.5-10.1); Creatinine Clr Calc Pharmacy 95.4 ml/min; Est GFR (African American) 106.7 ml/min; Globulin 3.2 gm/dl (2.5-4.0); Potassium 3.6 mmol/L (3.5-5.1); Total Protein 5.8 gm/dl (6.4-8.2)
[2021-02-04] MEDS ORDERED: bisacodyL 5 MG TABEC PO ONE (09:44)
--- NOTE | 2021-02-04 09:44 | Gastroenterology Progress Note ---
Date of Service February 04, 2021 Assessment & Plan (1) Post-ERCP acute pancreatitis: Plan: Pt is a 80 y/o male who is s/p ERCP 01/30 w biliary stent and choledocholithiasis removal; admitted w abd pain, CT consistent w pancreatitis. His LFTs and lipase had normalized but he had persistent upper abd pain. KUB w/o further signs of ileus. He feels better on Levsin. - Stop IVF - Advanced to low fat diet - Miralax 17g daily; add Dulcolax 10mg PO today - Levsin 0.125mg SL q6hrs prn abd pain - Symptomatic management - Avoid narcotics if possible; encourage OOB; try to maintain K >4 to help promote GI motility - No contraindication for DC home from GI standpoint. GI sign off Admission and Anticipated Discharge Date Admission Date: February 01, 2021 Supervising Physician Co-Signing Physician Notes Patient notes that he is feeling much improved today. He is tolerating p.o. without any difficulty. It appears the patient may be able to go home this afternoon and will follow up with our office in 8 to 12 weeks. Please call with any questions or concerns Subjective Pt feels well, denies any abd pain, n/v. Passing flatus but no BMs yet Review of Systems Review of Systems: All systems reviewed & are unremarkable except as noted in HPI & below Physical Exam Constitutional: WD/WN, vitals as above well groomed, cooperative and comfortable Eyes: PERRL, conjunctivae normal, anicteric sclerae ENMT: external ear and nose normal, oropharynx normal Respiratory: normal respiratory effort, lungs clear to auscultation Cardiovascular: RRR, no murmur, no edema Gastrointestinal (Abdomen): Mildly distended, BS present, non tender Skin: no rashes, warm and dry no jaundice Psychiatric: A+Ox3, euthymic affect Lymphatic: no lymphedema Results & Data ([facility]) Vital Signs (Past 12 Hours) Vital Signs Temp Pulse Pulse Resp BP Pulse Ox 02/04/21 07:11 36.5 C 72 18 177/66 H 91 02/04/21 02:29 36.6 C 18 171/78 H 93 02/03/21 22:55 36.6 C 77 18 187/79 H 93 02/03/21 22:19 72
--- NOTE | 2021-02-04 11:17 | Hospitalist Progress Note ---
Date of Service February 04, 2021 Assessment & Plan (1) Post-ERCP acute pancreatitis: Plan: Clinical pancreatitis without lipasemia. Diet has been advanced and pain is resolved. Trial of solid food today and if OK will send him home with Levsin which has been helpful. Continue ciprofloxacin as a preventive measure post ERCP for total 5 days. WBCs are rising. GI following. (2) BPH (benign prostatic hyperplasia): Plan: Continue Flomax per home regimen. (3) Hypothyroidism: Plan: Continue Synthroid per home regimen. (4) Coronary atherosclerosis of [place] coronary artery: Plan: Chronic, stable, continue medical management including baby aspirin twice daily, atorvastatin 80 mg p.o. nightly. Takes verapamil 180 mg nightly. (5) HTN (hypertension): Plan: Elevated BP this morning on home Cozaar 100mg daily. Restart home HCTZ 12.5mg daily with first dose now. (6) Depression: Plan: Cont sertraline per home regimen. 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 Hopeful to have BM prior to discharge but it is encouraging that he is passing flatus. Zhanna Fisher DO [facility] Hospitalist Admission and Anticipated Discharge Date Admission Date: February 01, 2021 Subjective 80 yo M admitted for post -ERCP pancreatitis. Pain has resolved. Tolerating l iquid diet, advancing to low fat for lunch. No BM since admission but passing flatus, taking laxatives and feels he is close. Ambulating at baseline. Feels Levsin is important to go home with as th is is helping him alot. Review of Systems Review of Systems: All systems were reviewed and negative except as indicated in HPI above. Physical Exam Physical Exam: CONSTITUTIONAL: WNWD, vitals as above, generally well- appearing, NAD EYES: normal conjunctivae, no scleral icterus ENT: external ear and nose normal, MMM RESPIRATORY: clear to auscultation bilaterally, no crackles, rales or wheezes, normal respiratory effort CARDIOVASCULAR: regular rate and rhythm, S1 and 2 heard without murmurs, gallops or rubs, no JVD, no peripheral edema GASTROINTESTINAL: soft, NTND MUSCULOSKELETAL: strength 5/5 throughout, head is normocephalic and atraumatic SKIN: warm and dry NEUROLOGIC: CN 2-12 grossly intact, no sensory deficit, normal cognition, normal speech PSYCHIATRIC: alert cooperative and oriented to person, place and time. Results & Data Results & Data ([facility]) Vital Signs (Past 12 Hours) Vital Signs Temp Pulse Resp BP Pulse Ox 02/04/21 07:11 36.5 C 72 18 177/66 H 91 02/04/21 02:29 36.6 C 18 171/78 H 93 Laboratory Results Short CBC 02/04/21 Range/Units 07:59 WBC 12.95 H (4.8-10.8) K/uL Hgb 12.9 L (14.0-18.0) g/dL Hct 37.7 L (42-52) % Plt Count 182 (130-400) K/uL BMP 02/04/21 07:59 Sodium 137 Potassium 3.6 Chloride 106 Carbon Dioxide 23 BUN 9 D Creatinine 0.67 Glucose 112 H Calcium 8.2 L Liver Function 02/04/21 Range/Units 07:59 Total Bilirubin 1.1 H (0.2-1) mg/dl AST 19 (15-37) U/L ALT 29 (12-78) U/L Alkaline Phosphatase 71 (45-117) U/L Albumin 2.6 L (3.4-5.0) gm/dl Medications Administered Current Inpatient Medications Hydrocodone Bitart/Acetaminophen (Hydrocodone/Acetamophen 5/325mg Tab) 1 - 2 tab PO Q6H PRN PRN Reason: Pain Stop: 02/15/21 10:45 Last Admin: 02/04/21 06:34 Dose: 2 tab Documented by: Aspirin (Aspirin 81 Mg Ectab) 81 mg PO BID JOHANA Stop: 03/03/21 08:59 Last Admin: 02/04/21 07:39 Dose: 81 mg Documented by: Atorvastatin Calcium (Atorvastatin 40 Mg Tab) 80 mg PO HS [facility] Stop: 03/03/21 20:59 Bisacodyl (Bisacodyl 10 Mg Supp) 10 mg AR DAILY PRN PRN Reason: Constipation Stop: 03/03/21 10:45 Ciprofloxacin (Ciprofloxacin 500 Mg Tab) 500 mg PO BID JOHANA Stop: 02/05/21 09:01 Enoxaparin Sodium (Enoxaparin Inj 40 Mg/0.4 Ml Syr) 40 mg SQ QAM JOHANA Stop: 03/03/21 08:59 Last Admin: 02/04/21 07:39 Dose: 40 mg Documented by: Fluticasone/Vilanterol (Fluticasone/Vilanterol 200/25mcg 14 Puffs/Inhaler) 1 pu ffs INH DAILY [facility] Stop: 03/03/21 08:59 Last Admin: 02/04/21 07:38 Dose: 1 puffs Documented by: Guaifenesin (Guaifenesin 600 Mg Tabcr) 600 mg PO Q12H PRN PRN Reason: Congestion Stop: 03/03/21 02:21 Last Admin: 02/04/21 07:37 Dose: 600 mg Documented by: Hyoscyamine (Hyoscyamine Sulfate 0.125 Mg Tab) 0.125 mg SL Q6 PRN PRN Reason: Pain Stop: 03/04/21 08:44 Last Admin: 02/04/21 00:02 Dose: 0.125 mg Documented by: Promethazine HCl 12.5 mg/ (Sodium Chloride) 50.5 mls @ 202 mls/hr IV Q6H PRN PRN Reason: Nausea And Vomiting Stop: 03/03/21 00:41 Last Infusion: 02/04/21 05:30 Dose: Infused Documented by: Lorazepam (Ativan) 0.25 mg in 0.5 mls @ 0.5 mls/min IV Q4H PRN PRN Reason: Anxiety Stop: 03/03/21 02:21 Famotidine 20 mg/ Syringe 5 mls @ 2.5 mls/min IV Q12H PRN PRN Reason: heartburn Stop: 03/03/21 10:59 Lactobacillus Acidoph/Casei/Rhamnos (Advanced Probiotic 1250 Mg Capsule) 2 cap PO QAM [facility] Stop: 03/03/21 08:59 Last Admin: 02/01/21 08:05 Dose: 2 cap Documented by: Levothyroxine Sodium (Levothyroxine Sodium 137 Mcg Tablet) 137 mcg PO [id number]@0630 [facility] Stop: 03/03/21 06:29 Last Admin: 02/03/21 06:26 Dose: 137 mcg Documented by: Levothyroxine Sodium (Levothyroxine Sodium 150 Mcg Tablet) 150 mcg PO MoWeFr@0630 [facility] Stop: 03/04/21 06:29 Last Admin: 02/04/21 06:34 Dose: 150 mcg Documented by: Losartan Potassium (Losartan Potassium 50 Mg Tab) 100 mg PO QAM [facility] Stop: 03/03/21 06:29 Last Admin: 02/04/21 07:37 Dose: 100 mg Documented by: Meclizine HCl (Meclizine Hcl 25 Mg Tab) 25 mg PO Q6 PRN PRN Reason: Dizziness Stop: 03/03/21 02:21 Morphine Sulfate (Morphine Sulfate 4 Mg/Ml 1 Ml Carp\Vial) 4 mg IV Q2H PRN PRN Reason: Pain Stop: 02/15/21 10:45 Last Admin: 02/04/21 01:14 Dose: 4 mg Documented by: Pantoprazole Sodium (Pantoprazole 40 Mg Tab) 40 mg PO QAM [facility] Stop: 02/05/21 09:01 Last Admin: 02/04/21 07:38 Dose: 40 mg Documented by: Polyethylene Glycol (Polyethylene (Miralax) 17 Gm Pack) 17 gm PO DAILY [facility] Stop: 03/05/21 10:14 Last Admin: 02/04/21 07:38 Dose: 17 gm Documented by: Potassium Chloride (Potassium Chloride Crtab 20 Meq Tabcr) 40 meq PO BID [facility] Stop: 03/04/21 11:44 Last Admin: 02/04/21 07:38 Dose: 40 meq Documented by: Sertraline HCl (Sertraline Hcl 50 Mg Tablet) 50 mg PO [facility] Stop: 03/03/21 08:59 Last Admin: 02/04/21 07:37 Dose: 50 mg Documented by: Tamsulosin HCl (Tamsulosin Hcl 0.4 Mg Cap) 0.4 mg PO [facility] Stop: 03/03/21 02:21 Last Admin: 02/03/21 22:37 Dose: 0.4 mg Documented by: Triamcinolone Acetonide (Triamcinolone Acet Nasal [place] 10.8ml Btl) 1 sprays NA BID [facility] Stop: 03/03/21 08:59 Last Admin: 02/04/21 07:40 Dose: 1 sprays Documented by: Verapamil HCl (Verapamil Hcl 180 Mg Tabcr) 180 mg PO [facility] Stop: 03/03/21 20:59 Last Admin: 02/03/21 22:36 Dose: 180 mg Documented by:
[2021-02-04] MEDS ORDERED: hydroCHLOROthiazide 25 MG TAB PO SCH (12:00)
--- NOTE | 2021-02-04 15:09 | Discharge Summary ---
Date of Service February 04, 2021 Admission HPI Per Admitting Provider History obtained from patient and records. Medical history significant for CAD status post CABG/stent, hypertension, hyperlipidemia, history of PE status post anti-coagulation, asthma, BPH/prostate cancer status post radiation, skin cancer, hypothyroidism, past tobacco abuse Recent confinement 12/07- under General Surgery service for acute calculus cholecystitis, CBD stone status post laparoscopic cholecystectomy and ERCP/biliary stent placement. Patient underwent outpatient ERCP with biliary stent removal yesterday. No obvious biliary stricture seen as per report. Several additional gallstones removed. Patient discharged on 5-day course of Ciprofloxacin. Upon arriving home, patient noted achy epigastric discomfort radiating to his flanks somewhat worsened by eating and drinking. No chest pain, no S OB, no headache symptoms. Persistent pain overnight with fever 102 at home. Patient consulted ER for evaluation. IV Zosyn administered at the ER. 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 Admission Exam Per Admitting Provider GENERAL: Slightly uncomfortable, pleasant, no respiratory distress SKIN: Normal color, warm HEENT: Partial alopecia, [place] palpebral conjunctivae, no ptosis, dry buccal mucosa NECK : Supple, no tenderness CHEST : CTA, no tenderness HEART : RRR, no obvious murmurs ABDOMEN: Some distention, epigastric tenderness EXTREMITIES : No LE swelling/tenderness, no other conspicuous deformities noted NEUROLOGIC : Coherent, no facial asymmetry, no other gross focality Principal Diagnosis Post-ERCP pancreatitis Ileus-resolved Discharge Exam CONSTITUTIONAL: WNWD, vitals as above, generally well-appearing, NAD EYES: normal conjunctivae, no scleral icterus ENT: external ear and nose normal, MMM RESPIRATORY: clear to auscultation bilaterally, no crackles, rales or wheezes, normal respiratory effort CARDIOVASCULAR: regular rate and rhythm, S1 and 2 heard without murmurs, gallops or rubs, no JVD, no peripheral edema GASTROINTESTINAL: soft, NTND MUSCULOSKELETAL: strength 5/5 throughout, head is normocephalic and atraumatic SKIN: warm and dry NEUROLOGIC: CN 2-12 grossly intact, no sensory deficit, normal cognition, normal speech PSYCHIATRIC: alert cooperative and oriented to person, place and time. Discharge Data Allergies Allergy/AdvReac Type Severity Reaction Status Date / Time Beta-Blockers AdvReac Mild History Verified 02/01/21 00:32 (Beta-Adrenergic Bloc intolerance as per records codeine AdvReac Mild N/V Verified 01/31/21 23:43 Consultations 01/31/21 23:25 ED Decision to Admit Stat 02/01/21 02:22 Consult Gastroenterology Routine Ordered Studies Laboratory Results WBC 12.95 K/uL (4.8-10.8) H 02/04/21 07:59 RBC 4.25 M/uL (4.7-6.1) L 02/04/21 07:59 Hgb 12.9 g/dL (14.0-18.0) L 02/04/21 07:59 POC Hgb 13.9 g/dl (14.0-18.0) L 01/31/21 22:17 Hct 37.7 % (42-52) L 02/04/21 07:59 POC Hct 41 % (42-52) L 01/31/21 22:17 MCV 88.7 fL (80-100) 02/04/21 07:59 MCH 30.4 pg (25-34) 02/04/21 07:59 MCHC 34.2 g/dL (32-36) 02/04/21 07:59 RDW Std Deviation 45.7 fL (36.4-46.3) 02/04/21 07:59 RDW Coeff of Valentino 14.0 % (11.5-14.5) 02/04/21 07:59 Plt Count 182 K/uL (130-400) 02/04/21 07:59 MPV 11.1 fL (7.4-10.4) H 02/04/21 07:59 Immature Gran % (Auto) 0.4 % 02/01/21 06:32 Neut % (Auto) 82.2 % 02/01/21 06:32 Lymph % (Auto) 6.8 % 02/01/21 06:32 [place] % (Auto) 10.4 % 02/01/21 06:32 Eos % (Auto) 0.1 % 02/01/21 06:32 Baso % (Auto) 0.1 % 02/01/21 06:32 Neut # (Auto) 11.17 K/uL (1.4-6.5) H 02/01/21 06:32 Lymph # (Auto) 0.93 K/uL (1.2-3.4) L 02/01/21 06:32 [place] # (Auto) 1.41 K/uL (0.11-0.59) H 02/01/21 06:32 Eos # (Auto) 0.01 K/uL (0-0.5) 02/01/21 06:32 Baso # (Auto) 0.01 K/uL (0-0.2) 02/01/21 06:32 Immature Gran # (Auto) 0.06 K/uL (0.00-0.02) H 02/01/21 06:32 POC Sodium 138 mmol/L (135-144) 01/31/21 22:17 Sodium 137 mmol/L (136-145) 02/04/21 07:59 POC Potassium 4.5 mmol/L (3.3-5.0) 01/31/21 22:17 Potassium 3.6 mmol/L (3.5-5.1) 02/04/21 07:59 POC Chloride 105 mmol/L (101-112) 01/31/21 22:17 Chloride 106 mmol/L (98-107) 02/04/21 07:59 Carbon Dioxide 23 mmol/L (21-32) 02/04/21 07:59 POC Total CO2 20 mmol/L (24-31) L 01/31/21 22:17 Anion Gap 8.0 (3-11) 02/04/21 07:59 POC Anion Gap 19.0 mmol/L (16-25) 01/31/21 22:17 POC BUN 26 mg/dl (7-18) H 01/31/21 22:17 BUN 9 mg/dl (7-18) D 02/04/21 07:59 Creatinine 0.67 mg/dl (0.6-1.4) 02/04/21 07:59 POC Creatinine 1.0 mg/dl (0.6-1.3) 01/31/21 22:17 Est Cr Clr Drug Dosing 95.4 ml/min 02/04/21 07:59 Est GFR ( Amer) 106.7 ml/min 02/04/21 07:59 Est GFR (Non-Af Amer) 92.0 ml/min 02/04/21 07:59 BUN/Creatinine Ratio 13.8 (10-20) 02/04/21 07:59 Glucose 112 mg/dl (70-99) H 02/04/21 07:59 POC Glucose (other) 111 mg/dl (70-99) H 01/31/21 22:17 Estimat Average Glucose 103 mg/dl 01/31/21 22:09 Hemoglobin A1c 5.2 % (4.5-5.6) 01/31/21 22:09 Calcium 8.2 mg/dl (8.5-10.1) L 02/04/21 07:59 POC Ioniz Calcium [place] 1.11 mmol/l (1.12-1.32) L 01/31/21 22:17 Magnesium 1.9 mg/dl (1.8-2.4) 02/02/21 08:40 Total Bilirubin 1.1 mg/dl (0.2-1) H 02/04/21 07:59 AST 19 U/L (15-37) 02/04/21 07:59 ALT 29 U/L (12-78) 02/04/21 07:59 Alkaline Phosphatase 71 U/L (45-117) 02/04/21 07:59 Total Protein 5.8 gm/dl (6.4-8.2) L 02/04/21 07:59 Albumin 2.6 gm/dl (3.4-5.0) L 02/04/21 07:59 Globulin 3.2 gm/dl (2.5-4.0) 02/04/21 07:59 Albumin/Globulin Ratio 0.8 (0.9-2) L 02/04/21 07:59 Lipase 63 U/L (73-393) L 02/04/21 07:59 Procalcitonin < 0.05 ng/ml (0-0.5) 01/31/21 22:09 Urine Color Yellow 01/31/21 23:05 Urine Appearance Clear (Clear) 01/31/21 23:05 Urine pH 6.5 (4.5-7.5) 01/31/21 23:05 Ur Specific [place] 1.015 (1.000-1.030) 01/31/21 23:05 Urine Protein Negative (Negative) 01/31/21 23:05 Urine Glucose (UA) Negative (Negative) 01/31/21 23:05 Urine Ketones Negative (Negative) 01/31/21 23:05 Urine Blood Negative (Negative) 01/31/21 23:05 Urine Nitrite Negative (Negative) 01/31/21 23:05 Urine Bilirubin Negative (Negative) 01/31/21 23:05 Urine Urobilinogen Negative (Negative) 01/31/21 23:05 Ur Leukocyte Esterase Negative (Negative) 01/31/21 23:05 COVID-19 Eval Order Covid19 at [facility] 01/31/21 23:35 SARS-CoV-2 (PCR) NEGATIVE (Negative) 01/31/21 23:35 Impressions Abdomen/Pelvis CT 01/31/21 21:[address] WITH IV CONTRAST CT DOSE: 798.69 mGycm HISTORY: Mid abd pain s/p stent removal TECHNIQUE: Multiaxial CT images of the abdomen and pelvis were performed following the use of intravenous contrast. A dose lowering technique was utilized adhering to the principles of ALARA. COMPARISON STUDY: Abdomen and pelvis CT 12/06/2020. FINDINGS: Bibasilar linear densities consistent with subsegmental atelectasis. No pneumoperitoneum. No pneumatosis. Stable small sclerotic foci within the sacrum/pelvis. There is also stable sclerotic focus within the right lateral seventh rib. There are poststernotomy changes. Prior cholecystectomy. Progressive moderate left intrahepatic bile duct dilatation. The common bile duct is also slightly increased in size and measures up to 9 mm in diameter. The patient is status post removal of the common bile duct stent. There is mild peripancreatic inflammatory change surrounding the head/uncinate process of the pancreas. This likely represents a mild acute pancreatitis. The main portal vein is patent. Bilateral renal cysts are again noted. No evidence for pancreatic necrosis. There is also mild periportal inflammatory change. The spleen and adrenal glands unremarkable. Calcified plaque within the normal caliber abdominal aorta. Multiple brachytherapy seeds again noted within the prostate gland. The bladder is unremarkable. Colonic diverticulosis. No evidence for acute diverticulitis. No bowel wall thickening or obstruction. No pelvic lymphadenopathy. IMPRESSION: 1. Interval removal of the common bile duct stent with mild inflammatory change adjacent to the pancreatic head/uncinate process. Therefore, this favors an acute pancreatitis. 2. Mild dilatation of main pancreatic duct and moderate left intrahepatic bile duct dilatation which has progressed. 3. Cholecystectomy. 4. Additional findings as described above. ACT 112: Negative or not required by law. Electronically signed by: Jerry Yeager M.D. 02/01/2021 9:13 AM KUB X-Ray 02/03/21 10:11 KUB CLINICAL HISTORY: re-eval ileus COMPARISON STUDY: CT of the abdomen and pelvis January 31, 2021. KUB February 02, 2021. FINDINGS: Incidental note is made of brachytherapy seeds within the prostate. The bowel gas pattern is unremarkable. Gaseous distention of the colon has decreased. IMPRESSION: Unremarkable bowel gas pattern. ACT 112: Negative or not required by law. Electronically signed by: Darin Naylor M.D. 02/03/2021 11:35 AM Hospital Course (1) Post-ERCP acute pancreatitis: (2) Ileus: The patient is a 80-year-old man who underwent an ERCP with stent removal prior to arrival. Shortly after undergoing this procedure he developed acute epigastric pain. Upon arrival home he was unable to tolerate p.o. and his pain worsened. He returned and was admitted for treatment of a post-ERCP acute pancreatitis. Diuretics were held and IV fluids were given. He was continued on his post procedure ciprofloxacin for prophylaxis. GI was consulted and recommended to continue supportive care with analgesics, antiemetics and IV fluids. His liver enzymes were within normal limits and his lipase was not elevated during this hospitalization. He did have significant distention of the colon on KUB which was thought secondary to an underlying ileus. MiraLAX twice daily and Dulcolax suppository was recommended. He was given a dose of Relistor and he was given Levsin sublingual every 4 hours as needed for cramping. That was started on 02/02. Narcotics were avoided and he continued to improve. He started having passage of gas the next day. He was continued on a liquid diet until day of discharge when he was transition to a solid diet which he tolerated well without postprandial issues. At time of discharge his abdominal pain had completely resolved, he was tolerating p.o. and was recommended to follow-up with [facility] gastroenterology in 8 to 12 weeks. Total Time Total Time Spent Total Time Spent (In Minutes): 60 Discharge Plan Discharge Items Patient Disposition: Home - Self-Care Reason For Visit: HTN URG, PANCREATITIS Discharge Diagnosis: post ERCP pancreatitis ileus Activity: Resume your previous activity Non-emergency contact: Primary Care Provider Call non-emergency contact if: you have any medication questions, your symptoms worsen, your pain is not controlled, your pain is worsening and your pain is concerning for you Follow-up/Referrals: Donn Clarke MD [Primary Care Provider] - (Date & Time 02/09/2021 12:00 PM Provider Donn Clarke MD Department General Internal Medicine [facility] ) Diet: Low Fat Addtl Attending Provider Instructions: Please take all medications as instructed on discharge list below. It is recommended that you follow-up with [facility] Gastroenterology in 8-12 weeks to ensure you are doing well after this hospital stay and on your new medications. It is also recommended that you follow-up with your primary care physician as scheduled above. This visit will be to ensure you are doing well on the new medications given at time of discharge, and to ensure you are still doing well with food and feeling well since retuning home. It was a pleasure taking care of you! Please call if you have any questions or problems. You can reach a [facility] hospitalist on duty at [facility] 24 hours a day by calling [phone]. Take care of yourself. Zhanna Fisher DO [facility] Hospitalist Pending Studies at Discharge: No Stand-Alone Forms: My [facility] Medications and DC Order Prescriptions: New hyoscyamine sulfate [Levsin] 0.125 mg Tablet 0.125 mg sublingual Q6 PRN (Reason: abdominal cramps) Qty: 30 RF: 0 polyethylene glycol 3350 [Miralax] 17 gram Powder In Packet 17 g PO DAILY Qty: 14 RF: 0 Continued levothyroxine 137 mcg Tablet 137 mcg PO 4XWK RF: 0 tamsulosin [Flomax] 0.4 mg capsule 0.4 mg PO HS RF: 0 triamcinolone acetonide 55 mcg Aerosol,[place] 1 spray INTRANASAL BID RF: 0 levothyroxine [Synthroid] 150 mcg tablet 150 mcg PO 3XWK RF: 0 sertraline [Zoloft] 50 mg Tablet 50 mg PO QAM RF: 0 potassium chloride [Klor-Con M10] 10 mEq tablet,ER particles/crystals 10 meq PO QAM RF: 0 guaifenesin [Mucinex] 600 mg Tablet Extended Release 12hr 600 mg PO Q12H PRN (Reason: Congestion) RF: 0 ipratropium-albuterol 0.5 mg-3 mg(2.5 mg base)/3 mL solution for nebulization 3 ml INHALATION Q4H PRN (Reason: Shortness Of Breath) RF: 0 albuterol sulfate 90 mcg/actuation Hfa Aerosol Inhaler 2 puff INHALATION Q6H PRN (Reason: Shortness Of Breath) RF: 0 acetaminophen 500 mg Capsule 500 mg PO UD PRN (Reason: Pain) RF: 0 fluticasone propion-salmeterol [Wixela Inhub] 250-50 mcg/dose Blister With Device 1 inh INHALATION BID RF: 0 meclizine 25 mg Tablet 25 mg PO Q6 PRN (Reason: Dizziness) RF: 0 Probiotic 1 cap PO QAM RF: 0 verapamil 180 mg tablet extended release 180 mg PO HS RF: 0 famotidine [Pepcid] 20 mg tablet 20 mg PO QAM RF: 0 hydrochlorothiazide 12.5 mg capsule 12.5 mg PO QAM RF: 0 losartan 100 mg tablet 100 mg PO QAM RF: 0 atorvastatin 80 mg Tablet 80 mg PO HS RF: 0 cholecalciferol (vitamin D3) [Vitamin D3] 25 mcg (1,000 unit) Tablet 25 mcg PO QAM RF: 0 aspirin 81 mg Tablet,Delayed Release (Dr/Ec) 81 mg PO BID RF: 0 Discontinued ciprofloxacin HCl [Cipro] 500 mg tablet 500 mg PO BID Qty: 10 RF: 0 Discharge Orders: Discharge Order (Routine); Ordered 02/04/21 Ordered By: Zhanna Fisher Admission Data Admit Date/Time: 02/01/21 00:49 Attending Provider: Zhanna Fisher Admit Provider: Haja Humphrey Primary Care Provider: Donn Clarke Other Providers: Haja Humphrey ; Sabra Novak ; Abimbola Taveras ; Marilee Avalos ; Sonia Sheikh ; Elvin Liz ; Robyn Heller ; Mateo Russell ; Deon Magaña ; Linh Gaspar ; Nohelia Lo ; Joy Hernandez ; Sheila Leon ; Ravinder Corrigan
[2021-02-04] MEDS ORDERED: CIPROFLOXACIN 500 MG TAB PO SCH (21:00)
--- NOTE | 2021-02-17 13:53 | Coding Query ---
Your help is needed for correct coding of this account; please clarify if the patients Post-operative Ileus was: ( ) expected out of the surgery ( ) unexpected complication from the surgery (x )other please specify: the ileus was present after hospitalization, after he was receiving multiple doses of morphine for his pancreatitis. Ileus may have been from the narcotics and/or the procedure or both. I don't think we can say it was a direct result from the surgery alone. Thank you MARY Lee [facility]
== END 2021-02-04 16:48 | disposition home or self-care (01) | DRG 393 ==
LOC: ED 21:27 → 2W 02-01 00:49 → SUATTDRO 02-01 00:49 → 2W 02-01 01:51

== ENCOUNTER 2021-03-29 18:16 | Inpatient (IN) ==
[2021-03-29] MEDS ORDERED: SODIUM CHLORIDE 0.9% 1000ML 1,000 ML IV STA (18:23)
[2021-03-29] MEDS ORDERED: MoRPHine SULFATE 4 MG/ML 1 ML CARP\\VIAL IV PRN (18:23)
[2021-03-29 18:43] LABS: Basophils # (auto) 0.02 K/uL (0-0.2); Basophils % (auto) 0.2 %; Eosinophils # (auto) 0.07 K/uL (0-0.5); Eosinophils % (auto) 0.5 %; Hematocrit (blood only) 44.6 % (42-52); Hemoglobin 14.9 g/dL (14.0-18.0); Immature Granulocytes # (auto) 0.09 K/uL (0.00-0.02); Immature Granulocytes % (auto) 0.7 %; Lymphocytes # (auto) 0.79 K/uL (1.2-3.4); Mean Corpuscular Hemoglobin 30.6 pg (25-34); Mean Corpuscular Hgb Conc 33.4 g/dL (32-36); Mean Corpuscular Volume 91.6 fL (80-100); Monocytes # (auto) 1.03 K/uL (0.11-0.59); Monocytes % (auto) 7.8 %; Neutrophils # (auto) 11.16 K/uL (1.4-6.5); Neutrophils % (auto) 84.8 %; Platelet Count 164 K/uL (130-400); RDW Coefficient of Variation 14.5 % (11.5-14.5); RDW Standard Deviation 48.6 fL (36.4-46.3); Red Blood Count 4.87 M/uL (4.7-6.1); White Blood Count 13.16 K/uL (4.8-10.8)
--- NOTE | 2021-03-29 18:48 | Emergency Department Note ---
Impression & Plan Abdominal pain, Fever ED Provider Note NAME: LAURA FRAGA AGE: 80 SEX: M : 1940 ARRIVES VIA: Ambulance INFORMANT: Patient, EMS personnel ED PROVIDER(S): Kevin Dotson DO CHIEF COMPLAINT: Abdominal pain HPI: The patient is a 80-year-old male who presented to the emergency department by ambulance for an evaluation of abdominal pain. The patient has had worsening abdominal pain over the course the last few days. The pain is mostly in his lower abdomen left greater than right. He also has a history of having pancrea titis. He did have some alcohol last evening but states the pain is not in the same place. The patient states that he has had nausea but no vomiting. He was treated with morphine prior to arrival with significant improvement of his symptoms. He denies having any black or bloody bowel movements. He states the pain does somewhat go into his anterior chest. He denies having any headaches. The patient denied having any fever but was found to have a slight elevation in his temperature prior to arrival by EMS. ROS: See above HPI for pertinent positives & negatives. A total of 10 systems reviewed and were otherwise negative. PAST MEDICAL HISTORY: See Below PAST SURGICAL HISTORY: See Below FAMILY HISTORY: See Below SOCIAL HISTORY: See Below HOME MEDICATIONS: See Below ALLERGIES: See Below VITALS: See Below PHYSICAL EXAMINATION: GENERAL: Patient is awake alert in no acute distress patient is resting comfortably and showing no signs of anxiety EYES: The conjunctivae are clear. The pupils are round and reactive. EARS, NOSE, MOUTH AND THROAT: The nose is without any evidence of any deformity. Mucous membranes are moist. Tongue is midline. NECK: The neck is nontender and supple. RESPIRATORY: Normal respiratory effort is noted there is no evidence of wheezing rhonchi or rales CARDIOVASCULAR: Regular rate and rhythm noted there no murmurs rubs or gallops normal S1 normal S2. GASTROINTESTINAL: The abdomen is soft and mildly distended. There is lower abdominal tenderness to palpation but no guarding rigidity. The abdomen is soft. Abdomen is nontender. PELVIS: The Pelvis is stable. No tenderness to palpation is noted. BACK: No midline tenderness or or step-off noted range of motion in flexion extension as well as rotation no signs of muscle spasm noted MUSCULOSKELETAL/EXTREMITIES: There is no evidence of gross deformity full range of motion is noted in the hips and shoulders. SKIN: There is no obvious evidence of any rash. There are no petechiae, pallor or cyanosis noted. NEUROLOGIC: Patient is awake alert and oriented x3. MEDICAL DECISION MAKING: The patient is a 80-year-old male who presented to the emergency department for an evaluation of abdominal pain. The patient arrived via ambulance. He was treated with pain medication in the emergency department. He was reevaluated multiple times. I discussed the patient's laboratory and radiographic studies with him. He was found to have an elevated white blood cell count. His bilirubin also elevated from his baseline. Given his recent history of stenting in his biliary tree I discussed his case with the on-call mems integration engineer. He does not currently have a stent in place and CAT scan does not show any significant change from previous. Given his recent instrumentation and his complaints there is concern the patient may require observation to follow his symptoms. I discussed the patient's condition with the on-call [facility] hospitalist. They have agreed to evaluate patient in the emergency department for further management and disposition. Triage Nursing notes reviewed. [Prior medical records reviewed] Vital Signs: reviewed and remarkable for [no significant abnormalities] Differential diagnosis: Etiologies such as appendicitis, diverticulitis, obstruction, inflammatory bowel disease, renal colic, PUD, biliary pathology, pancreatitis, mesenteric ischemia, aortic pathology, infections, genitourinary, UTI, perforated viscus, as well as others were entertained. ER treatment provided: See below Diagnostics interpreted by me: ECG: EKG was obtained in the emergency department. My interpretation is normal sinus rhythm at 87 bpm. There is no ectopy. There was no acute ST segment abno rmalities noted. This was compared to a tracing from February 012020. No significant changes were noted. Cardiac Monitoring: An order was placed for continuous cardiac monitoring. The monitor shows a rate of [] with [] rhythm. Laboratory studies: [As stated above and show below.] Imaging studies: [See below] Consultation(s): [none] ED COURSE: [] Procedures: [none] [PDMP:reviewed and no issues] [Critical Care:] [None] Past Med/Surg History Medical History Afib post-op CABG, no known recurrences per pt Asthma BPH (benign prostatic hyperplasia) CAD (coronary artery disease) CABG (2019) + stents (MARY to prox Lcx, MARY x2 to mid LAD- 2018) Clostridium difficile carrier COPD (chronic obstructive pulmonary disease) High serum chloride History of Graves' disease History of pulmonary embolism 2010, AC since discontinued Hypertension Hypothyroidism Leukocytosis Prostate cancer S/P seed implant Skin cancer Surgical History H/O rotator cuff surgery History of appendectomy History of basal cell carcinoma (BCC) excision History of cardiac cath CABG (2018) + stents (MARY to prox Lcx, MARY x2 to mid LAD- 2018) History of cholecystectomy Lap cholecystectomy, open repair of umbilical hernia (12/09/2020): Grade 2 view, MAC #3, ETT 7.5 at [facility] History of colonoscopy with polypectomy History of cystoscopy History of eye surgery History of hernia repair History of malignant melanoma of skin Back, eyelid History of thyroidectomy, total History of vasectomy Status post double vessel coronary artery bypass CABG (2018) Status post operation on nasal sinus 2002 Family History Father Cancer Prostate and bladder Mother Stroke Breast cancer Social History Smoking Status: Never smoker Age Quit Using Tobacco: 27; Number of Years Since Quit: 50; Second Hand Exposure: No; Do You Dip or Chew Tobacco: No; Hx Alcohol Use: Yes Alcohol type: beer and hard liquor Alcohol Intake Frequency Comment: 1-2 drinks per day Hx Substance Use: Yes Preferred Language: Ghanaian Communication Ability: Effective 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 Beliefs That Will Affect Care: None marital status: Current Living Situation: Spouse current occupational status: retired current occupation: Retired Other Information That Helps Us Care for You: No Feels Safe at Home: Yes Safety Concerns: Feels Safe At This Time Assistive Devices: Glasses Allergies Allergies Allergy/AdvReac Type Severity Reaction Status Date / Time Beta-Blockers AdvReac Mild History Verified 03/29/21 19:25 (Beta-Adrenergic Bloc intolerance as per records codeine AdvReac Mild N/V Verified 03/29/21 19:25 Home Meds Home Medications Medication Instructions Recorded Confirmed guaifenesin 600 mg tablet, 600 mg PO Q12H 10/31/18 03/29/21 extended release 12 hr (Mucinex) levothyroxine 137 mcg tablet 137 mcg PO 4XWK 10/31/18 03/29/21 levothyroxine 150 mcg tablet 150 mcg PO 3XWK 10/31/18 03/29/21 (Synthroid) potassium chloride 10 mEq 10 meq PO UD 10/31/18 03/29/21 tablet,extended release(part/cryst) (Klor-Con M) sertraline 50 mg tablet (Zoloft) 50 mg PO QAM 10/31/18 03/29/21 tamsulosin 0.4 mg capsule (Flomax) 0.4 mg PO HS 10/31/18 03/29/21 triamcinolone acetonide 55 mcg 1 spray INTRANASAL BID 10/31/18 03/29/21 nasal spray aerosol acetaminophen 500 mg capsule 500 mg PO Q4 PRN MDD 3g 07/12/19 03/29/21 albuterol sulfate 90 mcg/actuation 2 puff INHALATION Q6H PRN 07/12/19 03/29/21 aerosol inhaler fluticasone 250 mcg-salmeterol 50 1 inh INHALATION BID 07/12/19 03/29/21 mcg/dose blistr powdr for inhalation (Wixela Inhub) ipratropium 0.5 mg-albuterol 3 mg 3 ml INHALATION Q4H PRN 07/12/19 03/29/21 (2.5 mg base)/3 mL nebulization soln Probiotic 1 cap PO QAM 07/24/19 03/29/21 meclizine 25 mg tablet 25 mg PO Q6 PRN 07/24/19 03/29/21 atorvastatin 80 mg tablet 80 mg PO 12/06/20 03/29/21 cholecalciferol (vitamin D3) 25 25 mcg PO QAM 12/06/20 03/29/21 mcg (1,000 unit) tablet (Vitamin D3) famotidine 20 mg tablet (Pepcid) 20 mg PO QAM 12/06/20 03/29/21 hydrochlorothiazide 12.5 mg capsule 12.5 mg PO QAM 12/06/20 03/29/21 losartan 100 mg tablet 100 mg PO QAM 12/06/20 03/29/21 verapamil 180 mg tablet,extended 180 mg PO HS 12/06/20 03/29/21 release aspirin 81 mg tablet,delayed 81 mg PO BID 01/13/21 03/29/21 release Results & Data (ED) Vital Signs Vital Signs - 24 hr 03/29/21 17:39 03/29/21 18:33 03/29/21 19:00 Temperature 37.3 C Temperature Source Oral Pulse Rate 89 86 92 H Pulse Rate from SpO2 Sensor 88 93 H Pulse Rhythm Regular Pulse Strength Normal Respiratory Rate 16 17 21 Respiratory Effort / Characteristics Non-Labored Spontaneous Respiratory Depth Normal Blood Pressure 180/93 H 180/93 H 185/79 H Blood Pressure Mean 122 122 114 Blood Pressure Position Sitting Pulse Oximetry 97 97 96 Oxygen Delivery Method Room Air Oxygen Flow Rate Sepsis Recent Fever Within 48 Hours Yes Sepsis New/Unexplained Change in Mental Status No Sepsis Action Taken by Nursing No Action Required Oxygen Flow Rate - Titration Pulse Oximetry Post Tiitration 03/29/21 19:31 03/29/21 20:01 03/29/21 20:30 Temperature Temperature Source Pulse Rate 88 90 89 Pulse Rate from SpO2 Sensor 89 88 89 Pulse Rhythm Pulse Strength Respiratory Rate 20 16 20 Respiratory Effort / Characteristics Respiratory Depth Blood Pressure 147/69 H 161/87 H 172/75 H Blood Pressure Mean 95 111 107 Blood Pressure Position Pulse Oximetry 94 93 93 Oxygen Delivery Method Oxygen Flow Rate Sepsis Recent Fever Within 48 Hours Sepsis New/Unexplained Change in Mental Status Sepsis Action Taken by Nursing Oxygen Flow Rate - Titration Pulse Oximetry Post Tiitration 03/29/21 21:00 03/29/21 21:30 03/29/21 21:48 Temperature Temperature Source Pulse Rate 89 92 H Pulse Rate from SpO2 Sensor 89 92 H Pulse Rhythm Pulse Strength Respiratory Rate 16 17 Respiratory Effort / Characteristics Respiratory Depth Blood Pressure 179/82 H 153/68 H Blood Pressure Mean 114 96 Blood Pressure Position Pulse Oximetry 92 95 87 L Oxygen Delivery Method Nasal Cannula Room Air Oxygen Flow Rate 2 0 Sepsis Recent Fever Within 48 Hours Sepsis New/Unexplained Change in Mental Status Sepsis Action Taken by Nursing Oxygen Flow Rate - Titration 2 Pulse Oximetry Post Tiitration 95 Home Medications Current Medication List: was personally reviewed by me Laboratory Data Attestation: I reviewed the patient's lab results. Result diagrams: 03/29/21 18:34 03/29/21 18:34 Lab Results 03/29/21 03/29/21 03/29/21 Range/Units 18:34 18:34 18:34 WBC 13.16 H (4.8-10.8) K/uL RBC 4.87 (4.7-6.1) M/uL Hgb 14.9 (14.0-18.0) g/dL POC Hgb (14.0-18.0) g/dl Hct 44.6 (42-52) % POC Hct (42-52) % MCV 91.6 (80-100) fL MCH 30.6 (25-34) pg MCHC 33.4 (32-36) g/dL RDW Std Deviation 48.6 H (36.4-46.3) fL RDW Coeff of Valentino 14.5 (11.5-14.5) % Plt Count 164 (130-400) K/uL MPV 11.0 H (7.4-10.4) fL Immature Gran % (Auto) 0.7 % Neut % (Auto) 84.8 % Lymph % (Auto) 6.0 % [place] % (Auto) 7.8 % Eos % (Auto) 0.5 % Baso % (Auto) 0.2 % Neut # (Auto) 11.16 H (1.4-6.5) K/uL Lymph # (Auto) 0.79 L (1.2-3.4) K/uL [place] # (Auto) 1.03 H (0.11-0.59) K/uL Eos # (Auto) 0.07 (0-0.5) K/uL Baso # (Auto) 0.02 (0-0.2) K/uL Immature Gran # (Auto) 0.09 H (0.00-0.02) K/uL PT 11.0 (9.0-12.0) Seconds INR 1.1 (0.9-1.1) APTT 30.2 (21.0-31.0) Seconds PTT Ratio 1.1 POC Sodium (135-144) mmol/L Sodium 138 (136-145) mmol/L POC Potassium (3.3-5.0) mmol/L Potassium 3.4 L (3.5-5.1) mmol/L POC Chloride (101-112) mmol/L Chloride 103 (98-107) mmol/L Carbon Dioxide 27 (21-32) mmol/L POC Total CO2 (24-31) mmol/L Anion Gap 8.0 (3-11) POC Anion Gap (16-25) mmol/L POC BUN (7-18) mg/dl BUN 12 (7-18) mg/dl Creatinine 1.02 (0.6-1.4) mg/dl POC Creatinine (0.6-1.3) mg/dl Est Cr Clr Drug Dosing 64.7 ml/min Est GFR ( Amer) 81.2 ml/min Est GFR (Non-Af Amer) 70.1 ml/min BUN/Creatinine Ratio 11.9 (10-20) Glucose 94 (70-99) mg/dl POC Glucose (other) (70-99) mg/dl Calcium 8.1 L (8.5-10.1) mg/dl POC Ioniz Calcium Ruben (1.12-1.32) mmol/l Magnesium 2.0 (1.8-2.4) mg/dl Total Bilirubin 1.8 H (0.2-1) mg/dl AST 16 (15-37) U/L ALT 32 (12-78) U/L Alkaline Phosphatase 89 (45-117) U/L Troponin I < 0.015 (0-0.045) ng/ml Total Protein 6.4 (6.4-8.2) gm/dl Albumin 3.2 L (3.4-5.0) gm/dl Globulin 3.2 (2.5-4.0) gm/dl Albumin/Globulin Ratio 1.0 (0.9-2) Lipase 124 (73-393) U/L Urine Color Urine Appearance (Clear) Urine pH (4.5-7.5) Ur Specific [place] (1.000-1.030) Urine Protein (Negative) Urine Glucose (UA) (Negative) Urine Ketones (Negative) Urine Blood (Negative) Urine Nitrite (Negative) Urine Bilirubin (Negative) Urine Urobilinogen (Negative) Ur Leukocyte Esterase (Negative) COVID-19 Eval Order SARS-CoV-2 (PCR) (Negative) 03/29/21 03/29/21 03/29/21 Range/Units 18:34 18:52 20:37 WBC (4.8-10.8) K/uL RBC (4.7-6.1) M/uL Hgb (14.0-18.0) g/dL POC Hgb 15.0 (14.0-18.0) g/dl Hct (42-52) % POC Hct 44 (42-52) % MCV (80-100) fL MCH (25-34) pg MCHC (32-36) g/dL RDW Std Deviation (36.4-46.3) fL RDW Coeff of Valentino (11.5-14.5) % Plt Count (130-400) K/uL MPV (7.4-10.4) fL Immature Gran % (Auto) % Neut % (Auto) % Lymph % (Auto) % [place] % (Auto) % Eos % (Auto) % Baso % (Auto) % Neut # (Auto) (1.4-6.5) K/uL Lymph # (Auto) (1.2-3.4) K/uL [place] # (Auto) (0.11-0.59) K/uL Eos # (Auto) (0-0.5) K/uL Baso # (Auto) (0-0.2) K/uL Immature Gran # (Auto) (0.00-0.02) K/uL PT (9.0-12.0) Seconds INR (0.9-1.1) APTT (21.0-31.0) Seconds PTT Ratio POC Sodium 137 (135-144) mmol/L Sodium (136-145) mmol/L POC Potassium 3.3 (3.3-5.0) mmol/L Potassium (3.5-5.1) mmol/L POC Chloride 98 L (101-112) mmol/L Chloride (98-107) mmol/L Carbon Dioxide (21-32) mmol/L POC Total CO2 24 (24-31) mmol/L Anion Gap (3-11) POC Anion Gap 19.0 (16-25) mmol/L POC BUN 12 (7-18) mg/dl BUN (7-18) mg/dl Creatinine (0.6-1.4) mg/dl POC Creatinine 0.9 (0.6-1.3) mg/dl Est Cr Clr Drug Dosing ml/min Est GFR ( Amer) ml/min Est GFR (Non-Af Amer) ml/min BUN/Creatinine Ratio (10-20) Glucose (70-99) mg/dl POC Glucose (other) 92 (70-99) mg/dl Calcium (8.5-10.1) mg/dl POC Ioniz Calcium Ruebn 1.15 (1.12-1.32) mmol/l Magnesium (1.8-2.4) mg/dl Total Bilirubin (0.2-1) mg/dl AST (15-37) U/L ALT (12-78) U/L Alkaline Phosphatase (45-117) U/L Troponin I (0-0.045) ng/ml Total Protein (6.4-8.2) gm/dl Albumin (3.4-5.0) gm/dl Globulin (2.5-4.0) gm/dl Albumin/Globulin Ratio (0.9-2) Lipase (73-393) U/L Urine Color Yellow Urine Appearance Clear (Clear) Urine pH 8.5 H (4.5-7.5) Ur Specific [place] 1.014 (1.000-1.030) Urine Protein Negative (Negative) Urine Glucose (UA) Negative (Negative) Urine Ketones Negative (Negative) Urine Blood Negative (Negative) Urine Nitrite Negative (Negative) Urine Bilirubin Negative (Negative) Urine Urobilinogen Negative (Negative) Ur Leukocyte Esterase Negative (Negative) COVID-19 Eval Order Covid19 at [facility] SARS-CoV-2 (PCR) (Negative) 03/29/21 Range/Units 20:37 WBC (4.8-10.8) K/uL RBC (4.7-6.1) M/uL Hgb (14.0-18.0) g/dL POC Hgb (14.0-18.0) g/dl Hct (42-52) % POC Hct (42-52) % MCV (80-100) fL MCH (25-34) pg MCHC (32-36) g/dL RDW Std Deviation (36.4-46.3) fL RDW Coeff of Valentino (11.5-14.5) % Plt Count (130-400) K/uL MPV (7.4-10.4) fL Immature Gran % (Auto) % Neut % (Auto) % Lymph % (Auto) % [place] % (Auto) % Eos % (Auto) % Baso % (Auto) % Neut # (Auto) (1.4-6.5) K/uL Lymph # (Auto) (1.2-3.4) K/uL [place] # (Auto) (0.11-0.59) K/uL Eos # (Auto) (0-0.5) K/uL Baso # (Auto) (0-0.2) K/uL Immature Gran # (Auto) (0.00-0.02) K/uL PT (9.0-12.0) Seconds INR (0.9-1.1) APTT (21.0-31.0) Seconds PTT Ratio POC Sodium (135-144) mmol/L Sodium (136-145) mmol/L POC Potassium (3.3-5.0) mmol/L Potassium (3.5-5.1) mmol/L POC Chloride (101-112) mmol/L Chloride (98-107) mmol/L Carbon Dioxide (21-32) mmol/L POC Total CO2 (24-31) mmol/L Anion Gap (3-11) POC Anion Gap (16-25) mmol/L POC BUN (7-18) mg/dl BUN (7-18) mg/dl Creatinine (0.6-1.4) mg/dl POC Creatinine (0.6-1.3) mg/dl Est Cr Clr Drug Dosing ml/min Est GFR ( Amer) ml/min Est GFR (Non-Af Amer) ml/min BUN/Creatinine Ratio (10-20) Glucose (70-99) mg/dl POC Glucose (other) (70-99) mg/dl Calcium (8.5-10.1) mg/dl POC Ioniz Calcium Ruben (1.12-1.32) mmol/l Magnesium (1.8-2.4) mg/dl Total Bilirubin (0.2-1) mg/dl AST (15-37) U/L ALT (12-78) U/L Alkaline Phosphatase (45-117) U/L Troponin I (0-0.045) ng/ml Total Protein (6.4-8.2) gm/dl Albumin (3.4-5.0) gm/dl Globulin (2.5-4.0) gm/dl Albumin/Globulin Ratio (0.9-2) Lipase (73-393) U/L Urine Color Urine Appearance (Clear) Urine pH (4.5-7.5) Ur Specific [place] (1.000-1.030) Urine Protein (Negative) Urine Glucose (UA) (Negative) Urine Ketones (Negative) Urine Blood (Negative) Urine Nitrite (Negative) Urine Bilirubin (Negative) Urine Urobilinogen (Negative) Ur Leukocyte Esterase (Negative) COVID-19 Eval Order SARS-CoV-2 (PCR) NEGATIVE (Negative) Administered Medications Promethazine HCl 12.5 mg/ (Sodium Chloride) 50.5 mls @ 202 mls/hr IV Q6H PRN PRN Reason: Nausea And Vomiting Stop: 04/28/21 21:00 Last Infusion: 03/29/21 21:50 Dose: 0 mls/hr Documented by: [id number] Admin: 03/29/21 21:22 Dose: 202 mls/hr Documented by: [id number] Morphine Sulfate (Morphine Sulfate 4 Mg/Ml 1 Ml Carp\Vial) 4 mg IV Q4H PRN PRN Reason: Pain Stop: 04/12/21 21:00 Last Admin: 03/29/21 21:22 Dose: 4 mg Documented by: [id number] Discontinued Medications Sodium Chloride (Nss 1000ml) 1,000 mls @ 999 mls/hr IV .Q1H1M STA Stop: 03/29/21 19:23 Last Infusion: 03/29/21 19:45 Dose: 0 mls/hr Documented by: [id number] Admin: 03/29/21 18:43 Dose: 999 mls/hr Documented by: [id number] Piperacillin Sod/Tazobactam Sod (Zosyn) 4.5 gm in 120 mls @ 240 mls/hr IV NOW ONE Stop: 03/29/21 21:01 Last Infusion: 03/29/21 22:33 Dose: 0 mls/hr Documented by: [id number] Admin: 03/29/21 21:22 Dose: 240 mls/hr Documented by: [id number] Potassium Chloride (Potassium Chloride Crtab 20 Meq Tabcr) 40 meq PO NOW STA Stop: 03/29/21 20:46 Last Admin: 03/29/21 21:21 Dose: 40 meq Documented by: [id number] Promethazine HCl (Promethazine 12.5 Mg/50.5 Ml Nss) Confirm Administered Dose 12.5 mg IV .STK-MED ONE Stop: 03/29/21 21:18 Last Admin: 03/29/21 21:22 Dose: Not Given Documented by: [id number] Tamsulosin HCl (Tamsulosin Hcl 0.4 Mg Cap) 0.4 mg PO NOW ONE Stop: 03/29/21 21:56 Last Admin: 03/29/21 22:40 Dose: 0.4 mg Documented by: [id number] Verapamil HCl (Verapamil Hcl 180 Mg Tabcr) 180 mg PO NOW STA Stop: 03/29/21 20:46 Last Admin: 03/29/21 22:40 Dose: 180 mg Documented by: [id number] Imaging Data Radiologist's Impression: Abdomen/Pelvis CT 03/29/21 18:[address] WITH IV CONTRAST CT DOSE: 557.23 mGy.cm HISTORY: lower pain and fever TECHNIQUE: Multiaxial CT images of the abdomen and pelvis were performed following the use of intravenous contrast. A dose lowering technique was utilized adhering to the principles of ALARA. COMPARISON STUDY: Abdomen and pelvis CT 01/31/2021. FINDINGS: There are poststernotomy changes. Trace right pleural effusion. A few bibasilar linear densities consistent with subsegmental atelectasis. No pneumoperitoneum. No pneumatosis. Stable small sclerotic foci within the left sacrum and left posterior iliac bone. Old, healed right lower rib fractures. Prior cholecystectomy. Moderate left intrahepatic bile duct dilatation, unchanged. There is a stable 1.5 cm cyst within the left hepatic lobe. Trace pneumobilia within the dilated left intrahepatic bile ducts. The main portal v ein is patent. The spleen is unremarkable. Normal adrenal glands. Right renal parapelvic cyst remains unchanged. Subcentimeter left renal hypodense lesions are also stable. These are technically too small to characterize but favor cysts. No hydronephrosis. Mild bladder wall thickening. This is likely chronic. Multiple brachytherapy seeds again noted within the prostate gland. No pelvic lymphadenopathy. Lobular low density lesion located between the superior mesenteric vein and left renal vein best seen on image 126. This may represent an abnormally enlarged peripancreatic lymph node or complex pancreatic pseudocyst. This measures 4.2 x 2.0 cm. This is best seen on image 126. This is new compared the prior study. There is stable prominence of the main pancreatic duct and common bile duct. Bilateral perinephric edema, unchanged. Minimal peripancreatic inflammatory change at the uncinate process has almost completely resolved in the interval. The appendix is not identified and reportedly surgically absent. Stable mild asymmetric enlargement of the left seminal vesicle. Colonic diverticulosis. No evidence for acute diverticulitis. Moderate well-formed stool within the colon. No bowel wall thickening or obstruction. IMPRESSION: 1. No bowel wall thickening or obstruction. 2. Prior appendectomy. 3. No change in the mild dilatation of the main pancreatic duct and moderate left intrahepatic bile duct dilatation. 4. Cholecystectomy. 5. There is a lobular low-density lesion located between the superior mesenteric vein and left renal vein which measures 4.2 x 2.0 cm. There is new compared the prior study and demonstrates mild adjacent inflammatory change. Therefore, this could represent a pancreatic pseudocyst or enlarged lymph node. One-month pancreatic CT follow-up recommended to ensure resolution of this abnormality. 6. Minimal peripancreatic inflammatory change at the uncinate process has almost completely resolved in the interval. ACT 112: Positive. There are findings on this exam that require communication between the performing entity and the patient following Patient Test Result Information Act ([place] Act 112) guidelines. Electronically signed by: Jerry Yeager M.D. 03/29/2021 7:45 PM Discharge Plan Visit Data Chief Complaint: Abdominal Pain Stated Complaint: ABD PAIN ED Provider: Kevin Dotson Discharge Problem: Abdominal pain, Fever Patient Disposition: Admitted As Inpatient Condition: Good Discharge Instructions Interventions: ED Discharge Assessment Last Done: 03/29/21 22:30
[2021-03-29 19:01] LABS: Alanine Aminotransferase 32 U/L (12-78); Albumin Level 3.2 gm/dl (3.4-5.0); Aspartate Aminotransferase 16 U/L (15-37); BUN Creatinine Ratio 11.9 (10-20); Blood Urea Nitrogen 12 mg/dl (7-18); Calcium 8.1 mg/dl (8.5-10.1); Carbon Dioxide 27 mmol/L (21-32); Chloride 103 mmol/L (98-107); Creatinine Clr Calc Pharmacy 64.7 ml/min; Est GFR (African American) 81.2 ml/min; Est GFR (Non-African American) 70.1 ml/min; Glucose 94 mg/dl (70-99); INR 1.1 (0.9-1.1); Lipase 124 U/L (73-393); Partial Thromboplastin Ratio 1.1; Partial Thromboplastin Time 30.2 Seconds (21.0-31.0); Potassium 3.4 mmol/L (3.5-5.1); Sodium 138 mmol/L (136-145)
[2021-03-29 19:05] LABS: iSTAT Creatinine 0.9 mg/dl (0.6-1.3); iSTAT Ionized Calcium 1.15 mmol/l (1.12-1.32); iSTAT Potassium 3.3 mmol/L (3.3-5.0)
[2021-03-29 19:06] LABS: Alkaline Phosphatase 89 U/L (45-117); Bilirubin,Total 1.8 mg/dl (0.2-1); Globulin 3.2 gm/dl (2.5-4.0); Total Protein 6.4 gm/dl (6.4-8.2); Troponin I < 0.015 ng/ml (0-0.045)
[2021-03-29 19:07] LABS: Appearance Urine Clear (Clear); Bilirubin Urine Negative (Negative); Blood Urine Negative (Negative); Color Urine Yellow; Glucose Urine UA Negative (Negative); Ketones Urine Negative (Negative); Leukocyte Esterase Urine Negative (Negative); Nitrite Urine Negative (Negative); Protein Urine Negative (Negative); Specific Gravity Urine 1.014 (1.000-1.030); Urobilinogen Urine Negative (Negative); pH Urine 8.5 (4.5-7.5)
--- NOTE | 2021-03-29 19:46 | CT Scan Report ---
ABDOMEN AND PELVIS CT WITH IV CONTRAST CT DOSE: 557.23 mGy.cm HISTORY: lower pain and fever TECHNIQUE: Multiaxial CT images of the abdomen and pelvis were performed following the use of intrave nous contrast. A dose lowering technique was utilized adhering to the principles of ALARA. COMPARISON STUDY: Abdomen and pelvis CT 01/31/2021. FINDINGS: There are poststernotomy changes. Trace right pleural effusion. A few bibasilar linear dens ities consistent with subsegmental atelectasis. No pneumoperitoneum. No pneumatosis. Stable small scl erotic foci within the left sacrum and left posterior iliac bone. Old, healed right lower rib fractur es. Prior cholecystectomy. Moderate left intrahepatic bile duct dilatation, unchanged. There is a sta ble 1.5 cm cyst within the left hepatic lobe. Trace pneumobilia within the dilated left intrahepatic bile ducts. The main portal vein is patent. The spleen is unremarkable. Normal adrenal glands. Right renal parapelvic cyst remains unchanged. Subcentimeter left renal hypodense lesions are also stable. These are technically too small to characterize but favor cysts. No hydronephrosis. Mild bladder wall thickening. This is likely chronic. Multiple brachytherapy seeds again noted within the prostate gla nd. No pelvic lymphadenopathy. Lobular low density lesion located between the superior mesenteric vei n and left renal vein best seen on image 126. This may represent an abnormally enlarged peripancreati c lymph node or complex pancreatic pseudocyst. This measures 4.2 x 2.0 cm. This is best seen on image 126. This is new compared the prior study. There is stable prominence of the main pancreatic duct an d common bile duct. Bilateral perinephric edema, unchanged. Minimal peripancreatic inflammatory [place] e at the uncinate process has almost completely resolved in the interval. The appendix is not identif ied and reportedly surgically absent. Stable mild asymmetric enlargement of the left seminal vesicle. Colonic diverticulosis. No evidence for acute diverticulitis. Moderate well-formed stool within the colon. No bowel wall thickening or obstruction. IMPRESSION: 1. No bowel wall thickening or obstruction. 2. Prior appendectomy. 3. No change in the mild dilatation of the main pancreatic duct and moderate left intrahepatic bile d uct dilatation. 4. Cholecystectomy. 5. There is a lobular low-density lesion located between the superior mesenteric vein and left renal vein which measures 4.2 x 2.0 cm. There is new compared the prior study and demonstrates mild adjacen t inflammatory change. Therefore, this could represent a pancreatic pseudocyst or enlarged lymph node . One-month pancreatic CT follow-up recommended to ensure resolution of this abnormality. 6. Minimal peripancreatic inflammatory change at the uncinate process has almost completely resolved in the interval. ACT 112: Positive. There are findings on this exam that require communication between the performing entity and the patient following Patient Test Result Information Act ([place] Act 112) guidelines. Electronically signed by: Jerry Yeager M.D. 03/29/2021 7:45 PM
[2021-03-29] MEDS ORDERED: PIPERACILL/TAZOBAC CONSULT ACTIVE PRN (20:32)
[2021-03-29] MEDS ORDERED: PIPERACILLIN/TAZOBACTAM 4.5 GM/120 ML BAG IV ONE (20:32)
[2021-03-29] MEDS ORDERED: VERAPAMIL HCL 180 MG TABCR PO STA (20:45)
[2021-03-29] MEDS ORDERED: POTASSIUM CHLORIDE CRTAB 20 MEQ TABCR PO STA (20:45)
[2021-03-29] MEDS ORDERED: oxyCODONE HCL IR 5 MG TAB (IMMEDIATE RELEASE) PO PRN (21:01)
[2021-03-29] MEDS ORDERED: ACETAMINOPHEN 325 MG TAB PO PRN (21:01)
[2021-03-29] MEDS ORDERED: PROMETHAZINE 12.5 MG/50.5 ML NSS IV ONE (21:17)
[2021-03-29] MEDS: PROMETHAZINE HCL 12.5 MG in SODIUM CHLORIDE 0.9% 50 ML IV PRN (21:22)
[2021-03-29] MEDS: MoRPHine SULFATE 4 MG/ML 1 ML CARP\\VIAL IV PRN (21:22)
[2021-03-29] MEDS ORDERED: TAMSULOSIN HCL 0.4 MG CAP PO ONE (21:55)
--- NOTE | 2021-03-29 21:55 | History & Physical Report ---
Date of Service March 29, 2021 Assessment & Plan (1) Abdominal pain: Plan: Possible pancreatic pseudocyst with inflammatory change on CT read No overt sepsis for now. hx post ERCP pancreatitis Episode may have been precipitated by recent alcohol consumption. Hypertension, slight elevated secondary discomfort hx CAD status post CABG/stent as per records hx bilateral PE status post anti-coagulation hx prostate cancer status post radiation/hormone therapy, hx MGUS; patient follows with [facility] Oncology hypothyroidism, euthyroid as of recent outpatient TSH from October 2020 past tobacco abuse OBS F GI consult Re: Possible pancreatic pseudocyst with inflammatory change ER provider already in touch with Dr. Corrigan who recommends IV antibiotics for now. analgesia Facilitate nighttime BP medication DVT prophylaxis per Lovenox subcu Full code Text document was generated using [employer] voice recognition software. It may contain grammatical or spelling errors. Kindly contact undersigned for clarification of any documentation item in question. History of Present Illness Chief Complaint: Abdominal pain Primary Care Provider: Donn Clarke MD History obtained from patient and records. Medical history significant for CAD status post CABG/stent, hypertension, hyperlipidemia, history of PE status post anti-coagulation, asthma, BPH/prostate cancer status post radiation, MGUS, skin cancer, hypothyroidism, history of pancreatitis, past tobacco abuse Recent confinement January 2021 for post ERCP pancreatitis. 2 nights ago, patient noted achy left-sided abdominal pain somewhat reminiscent of pancreatitis pain. Admits to alcohol intake at home. Not excessive as per p atient. Some chills at home. Low-grade fever. No chest pain, no S OB. Patient brought to the ER for evaluation by . IV Zosyn given at the ER. 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 Allergies Allergy/AdvReac Type Severity Reaction Status Date / Time Beta-Blockers AdvReac Mild History Verified 03/29/21 19:25 (Beta-Adrenergic Bloc intolerance as per records codeine AdvReac Mild N/V Verified 03/29/21 19:25 Home Medications Medication Instructions Recorded Confirmed Type guaifenesin 600 mg tablet, 600 mg PO Q12H 10/31/18 03/29/21 History extended release 12 hr (Mucinex) levothyroxine 137 mcg tablet 137 mcg PO 4XWK 10/31/18 03/29/21 History levothyroxine 150 mcg tablet 150 mcg PO 3XWK 10/31/18 03/29/21 History (Synthroid) potassium chloride 10 mEq 10 meq PO UD 10/31/18 03/29/21 History tablet,extended release(part/cryst) (Klor-Con M) sertraline 50 mg tablet (Zoloft) 50 mg PO QAM 10/31/18 03/29/21 History tamsulosin 0.4 mg capsule (Flomax) 0.4 mg PO HS 10/31/18 03/29/21 History triamcinolone acetonide 55 mcg 1 spray INTRANASAL BID 10/31/18 03/29/21 History nasal spray aerosol acetaminophen 500 mg capsule 500 mg PO Q4 PRN MDD 3g 07/12/19 03/29/21 History albuterol sulfate 90 mcg/actuation 2 puff INHALATION Q6H PRN 07/12/19 03/29/21 History aerosol inhaler fluticasone 250 mcg-salmeterol 50 1 inh INHALATION BID 07/12/19 03/29/21 History mcg/dose blistr powdr for inhalation (Wixela Inhub) ipratropium 0.5 mg-albuterol 3 mg 3 ml INHALATION Q4H PRN 07/12/19 03/29/21 History (2.5 mg base)/3 mL nebulization soln Probiotic 1 cap PO QAM 07/24/19 03/29/21 History meclizine 25 mg tablet 25 mg PO Q6 PRN 07/24/19 03/29/21 History atorvastatin 80 mg tablet 80 mg PO HS 12/06/20 03/29/21 History cholecalciferol (vitamin D3) 25 25 mcg PO QAM 12/06/20 03/29/21 History mcg (1,000 unit) tablet (Vitamin D3) famotidine 20 mg tablet (Pepcid) 20 mg PO QAM 12/06/20 03/29/21 History hydrochlorothiazide 12.5 mg capsule 12.5 mg PO QAM 12/06/20 03/29/21 History losartan 100 mg tablet 100 mg PO QAM 12/06/20 03/29/21 History verapamil 180 mg tablet,extended 180 mg PO HS 12/06/20 03/29/21 History release aspirin 81 mg tablet,delayed 81 mg PO BID 01/13/21 03/29/21 History release Past Med/Surg History Medical History Afib post-op CABG, no known recurrences per pt Asthma BPH (benign prostatic hyperplasia) CAD (coronary artery disease) CABG (2018) + stents (MARY to prox Lcx, MARY x2 to mid LAD- 2018) Clostridium difficile carrier COPD (chronic obstructive pulmonary disease) High serum chloride History of Graves' disease History of pulmonary embolism 2010, AC since discontinued Hypertension Hypothyroidism Leukocytosis Prostate cancer S/P seed implant Skin cancer Surgical History H/O rotator cuff surgery History of appendectomy History of basal cell carcinoma (BCC) excision History of cardiac cath CABG (2018) + stents (MARY to prox Lcx, MARY x2 to mid LAD- 2018) History of cholecystectomy Lap cholecystectomy, open repair of umbilical hernia (12/09/2020): Grade 2 view, MAC #3, ETT 7.5 at [facility] History of colonoscopy with polypectomy History of cystoscopy History of eye surgery History of hernia repair History of malignant melanoma of skin Back, eyelid History of thyroidectomy, total History of vasectomy Status post double vessel coronary artery bypass CABG (2018) Status post operation on nasal sinus 2002 Family History Father Cancer Prostate and bladder Mother Stroke Breast cancer Social History Smoking Status: Never smoker Age Quit Using Tobacco: 27; Number of Years Since Quit: 50; Second Hand Exposure: No; Do You Dip or Chew Tobacco: No; Hx Alcohol Use: Yes Alcohol type: beer and hard liquor Alcohol Intake Frequency Comment: 1-2 drinks per day Hx Substance Use: Yes Preferred Language: Nepalese Communication Ability: Effective Turret 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 Tender Required: No Beliefs That Will Affect Care: None marital status: Current Living Situation: Spouse current occupational status: retired current occupation: Retired Other Information That Helps Us Care for You: No Feels Safe at Home: Yes Safety Concerns: Feels Safe At This Time Assistive Devices: None Review of Systems Review of Systems: As per HPI, all 10 systems reviewed, all other ROS negative Physical Exam Physical Exam: GENERAL: Slightly uncomfortable, pleasant, no respiratory distress SKIN: Normal color, warm HEENT: Partial alopecia, [place] palpebral conjunctivae, no ptosis, dry buccal mucosa NECK : Supple, no tenderness CHEST : CTA, no tenderness HEART : RRR, no obvious murmurs ABDOMEN: Some distention, minimal epigastric tenderness EXTREMITIES : No LE swelling/tenderness, no other conspicuous deformities noted NEUROLOGIC : Coherent, no facial asymmetry, no other gross focality Results & Data Results & Data ([facility]) Vital Signs (Past 12 Hours) Vital Signs Temp Pulse Resp BP Pulse Ox 03/29/21 21:48 87 L 03/29/21 21:30 92 H 17 153/68 H 95 03/29/21 21:00 89 16 179/82 H 92 03/29/21 20:30 89 20 172/75 H 93 03/29/21 20:01 90 16 161/87 H 93 03/29/21 19:31 88 20 147/69 H 94 03/29/21 19:00 92 H 21 185/79 H 96 03/29/21 18:33 86 17 180/93 H 97 03/29/21 17:39 37.3 C 89 16 180/93 H 97 Laboratory Results Laboratory Results WBC 13.16 K/uL (4.8-10.8) H 03/29/21 18:34 RBC 4.87 M/uL (4.7-6.1) 03/29/21 18:34 Hgb 14.9 g/dL (14.0-18.0) 03/29/21 18:34 POC Hgb 15.0 g/dl (14.0-18.0) 03/29/21 18:52 Hct 44.6 % (42-52) 03/29/21 18:34 POC Hct 44 % (42-52) 03/29/21 18:52 MCV 91.6 fL (80-100) 03/29/21 18:34 MCH 30.6 pg (25-34) 03/29/21 18:34 MCHC 33.4 g/dL (32-36) 03/29/21 18:34 RDW Std Deviation 48.6 fL (36.4-46.3) H 03/29/21 18:34 RDW Coeff of Valentino 14.5 % (11.5-14.5) 03/29/21 18:34 Plt Count 164 K/uL (130-400) 03/29/21 18:34 MPV 11.0 fL (7.4-10.4) H 03/29/21 18:34 Immature Gran % (Auto) 0.7 % 03/29/21 18:34 Neut % (Auto) 84.8 % 03/29/21 18:34 Lymph % (Auto) 6.0 % 03/29/21 18:34 [place] % (Auto) 7.8 % 03/29/21 18:34 Eos % (Auto) 0.5 % 03/29/21 18:34 Baso % (Auto) 0.2 % 03/29/21 18:34 Neut # (Auto) 11.16 K/uL (1.4-6.5) H 03/29/21 18:34 Lymph # (Auto) 0.79 K/uL (1.2-3.4) L 03/29/21 18:34 [place] # (Auto) 1.03 K/uL (0.11-0.59) H 03/29/21 18:34 Eos # (Auto) 0.07 K/uL (0-0.5) 03/29/21 18:34 Baso # (Auto) 0.02 K/uL (0-0.2) 03/29/21 18:34 Immature Gran # (Auto) 0.09 K/uL (0.00-0.02) H 03/29/21 18:34 PT 11.0 Seconds (9.0-12.0) 03/29/21 18:34 INR 1.1 (0.9-1.1) 03/29/21 18:34 APTT 30.2 Seconds (21.0-31.0) 03/29/21 18:34 PTT Ratio 1.1 03/29/21 18:34 POC Sodium 137 mmol/L (135-144) 03/29/21 18:52 Sodium 138 mmol/L (136-145) 03/29/21 18:34 POC Potassium 3.3 mmol/L (3.3-5.0) 03/29/21 18:52 Potassium 3.4 mmol/L (3.5-5.1) L 03/29/21 18:34 POC Chloride 98 mmol/L (101-112) L 03/29/21 18:52 Chloride 103 mmol/L (98-107) 03/29/21 18:34 Carbon Dioxide 27 mmol/L (21-32) 03/29/21 18:34 POC Total CO2 24 mmol/L (24-31) 03/29/21 18:52 Anion Gap 8.0 (3-11) 03/29/21 18:34 POC Anion Gap 19.0 mmol/L (16-25) 03/29/21 18:52 POC BUN 12 mg/dl (7-18) 03/29/21 18:52 BUN 12 mg/dl (7-18) 03/29/21 18:34 Creatinine 1.02 mg/dl (0.6-1.4) 03/29/21 18:34 POC Creatinine 0.9 mg/dl (0.6-1.3) 03/29/21 18:52 Est Cr Clr Drug Dosing 64.7 ml/min 03/29/21 18:34 Est GFR ( Amer) 81.2 ml/min 03/29/21 18:34 Est GFR (Non-Af Amer) 70.1 ml/min 03/29/21 18:34 BUN/Creatinine Ratio 11.9 (10-20) 03/29/21 18:34 Glucose 94 mg/dl (70-99) 03/29/21 18:34 POC Glucose (other) 92 mg/dl (70-99) 03/29/21 18:52 Calcium 8.1 mg/dl (8.5-10.1) L 03/29/21 18:34 POC Ioniz Calcium Ruben 1.15 mmol/l (1.12-1.32) 03/29/21 18:52 Magnesium 2.0 mg/dl (1.8-2.4) 03/29/21 18:34 Total Bilirubin 1.8 mg/dl (0.2-1) H 03/29/21 18:34 AST 16 U/L (15-37) 03/29/21 18:34 ALT 32 U/L (12-78) 03/29/21 18:34 Alkaline Phosphatase 89 U/L (45-117) 03/29/21 18:34 Troponin I < 0.015 ng/ml (0-0.045) 03/29/21 18:34 Total Protein 6.4 gm/dl (6.4-8.2) 03/29/21 18:34 Albumin 3.2 gm/dl (3.4-5.0) L 03/29/21 18:34 Globulin 3.2 gm/dl (2.5-4.0) 03/29/21 18:34 Albumin/Globulin Ratio 1.0 (0.9-2) 03/29/21 18:34 Lipase 124 U/L (73-393) 03/29/21 18:34 Urine Color Yellow 03/29/21 18:34 Urine Appearance Clear (Clear) 03/29/21 18:34 Urine pH 8.5 (4.5-7.5) H 03/29/21 18:34 Ur Specific [place] 1.014 (1.000-1.030) 03/29/21 18:34 Urine Protein Negative (Negative) 03/29/21 18:34 Urine Glucose (UA) Negative (Negative) 03/29/21 18:34 Urine Ketones Negative (Negative) 03/29/21 18:34 Urine Blood Negative (Negative) 03/29/21 18:34 Urine Nitrite Negative (Negative) 03/29/21 18:34 Urine Bilirubin Negative (Negative) 03/29/21 18:34 Urine Urobilinogen Negative (Negative) 03/29/21 18:34 Ur Leukocyte Esterase Negative (Negative) 03/29/21 18:34 COVID-19 Eval Order Covid19 at [facility] 03/29/21 20:37 SARS-CoV-2 (PCR) NEGATIVE (Negative) 03/29/21 20:37 Impressions Abdomen/Pelvis CT 03/29/21 18:[address] WITH IV CONTRAST CT DOSE: 557.23 mGy.cm HISTORY: lower pain and fever TECHNIQUE: Multiaxial CT images of the abdomen and pelvis were performed following the use of intravenous contrast. A dose lowering technique was utilized adhering to the principles of ALARA. COMPARISON STUDY: Abdomen and pelvis CT 01/31/2021. FINDINGS: There are poststernotomy changes. Trace right pleural effusion. A few bibasilar linear densities consistent with subsegmental atelectasis. No pneumoperitoneum. No pneumatosis. Stable small sclerotic foci within the left sacrum and left posterior iliac bone. Old, healed right lower rib fractures. Prior cholecystectomy. Moderate left intrahepatic bile duct dilatation, unchanged. There is a stable 1.5 cm cyst within the left hepatic lobe. Trace pneumobilia within the dilated left intrahepatic bile ducts. The main portal vein is patent. The spleen is unremarkable. Normal adrenal glands. Right renal parapelvic cyst remains unchanged. Subcentimeter left renal hypodense lesions are also stable. These are technically too small to characterize but favor cysts. No hydronephrosis. Mild bladder wall thickening. This is likely chronic. Multiple brachytherapy seeds again noted within the prostate gland. No pelvic lymphadenopathy. Lobular low density lesion located between the superior mesenteric vein and left renal vein best seen on image 126. This may represent an abnormally enlarged peripancreatic lymph node or complex pancreatic pseudocyst. This measures 4.2 x 2.0 cm. This is best seen on image 126. This is new compared the prior study. There is stable prominence of the main pancreatic duct and common bile duct. Bilateral perinephric edema, unchanged. Minimal peripancreatic inflammatory change at the uncinate process has almost completely resolved in the interval. The appendix is not identified and reportedly surgically absent. Stable mild asymmetric enlargement of the left seminal vesicle. Colonic diverticulosis. No evidence for acute diverticulitis. Moderate well-formed stool within the colon. No bowel wall thickening or obstruction. IMPRESSION: 1. No bowel wall thickening or obstruction. 2. Prior appendectomy. 3. No change in the mild dilatation of the main pancreatic duct and moderate left intrahepatic bile duct dilatation. 4. Cholecystectomy. 5. There is a lobular low-density lesion located between the superior mesenteric vein and left renal vein which measures 4.2 x 2.0 cm. There is new compared the prior study and demonstrates mild adjacent inflammatory change. Therefore, this could represent a pancreatic pseudocyst or enlarged lymph node. One-month pancreatic CT follow-up recommended to ensure resolution of this abnormality. 6. Minimal peripancreatic inflammatory change at the uncinate process has almost completely resolved in the interval. ACT 112: Positive. There are findings on this exam that require communication between the performing entity and the patient following Patient Test Result Information Act ([place] Act 112) guidelines. Electronically signed by: Jerry Yeager M.D. 03/29/2021 7:45 PM Diagnostic Findings EKG as per my interpretation rate 85, NSR, normal axis, inferior infarct, no ischemia (1) Abdominal pain Abdominal location: upper abdomen, unspecified Qualified Code(s): R10.10 - Upper abdominal pain, unspecified
[2021-03-29] MEDS ORDERED: LORazepam 0.5 MG/1 ML VIAL IV PRN (22:52)
[2021-03-29] MEDS ORDERED: POTASSIUM CHLORIDE 40 MEQ in LACTATED RINGER'S 1,000 ML IV ONE (23:30)
[2021-03-30] MEDS: MoRPHine SULFATE 4 MG/ML 1 ML CARP\\VIAL IV PRN ×2 (03:00→20:42)
[2021-03-30] MEDS ORDERED: LEVOTHYROXINE SODIUM 150 MCG TABLET PO SCH (06:30)
--- NOTE | 2021-03-30 07:42 | XRay Report ---
XR chest 1V portable INDICATION: [place] ^fever. TECHNIQUE: Single frontal radiograph of the chest was obtained. Comparison: Comparison is made to chest one view 12/06/2020 FINDINGS: Mediastinal wires are stable. Calcified aortic knob is seen. The lungs are clear. No evidence of pleu ral effusion or pneumothorax. IMPRESSION: No acute abnormality and in particular no evidence of pneumonia. ACT 112: Negative or not required by law. Electronically signed by: Suraj Shane M.D. 03/30/2021 7:40 AM
[2021-03-30 08:33] LABS: Basophils # (auto) 0.02 K/uL (0-0.2); Basophils % (auto) 0.2 %; Eosinophils # (auto) 0.05 K/uL (0-0.5); Eosinophils % (auto) 0.5 %; Hematocrit (blood only) 40.7 % (42-52); Hemoglobin 13.2 g/dL (14.0-18.0); Immature Granulocytes # (auto) 0.08 K/uL (0.00-0.02); Immature Granulocytes % (auto) 0.8 %; Lymphocytes # (auto) 0.59 K/uL (1.2-3.4); Mean Corpuscular Hgb Conc 32.4 g/dL (32-36); Mean Corpuscular Volume 92.5 fL (80-100); Mean Platelet Volume 10.9 fL (7.4-10.4); Monocytes # (auto) 1.07 K/uL (0.11-0.59); Monocytes % (auto) 10.9 %; Neutrophils # (auto) 7.98 K/uL (1.4-6.5); Neutrophils % (auto) 81.6 %; Platelet Count 142 K/uL (130-400); RDW Standard Deviation 50.9 fL (36.4-46.3); White Blood Count 9.79 K/uL (4.8-10.8)
[2021-03-30] MEDS: ADVANCED PROBIOTIC 1250 MG CAPSULE PO SCH (08:44)
[2021-03-30] MEDS: LOSARTAN POTASSIUM 50 MG TAB PO SCH (08:44)
[2021-03-30] MEDS: FAMOTIDINE 20 MG TAB PO SCH (08:45)
[2021-03-30] MEDS: ASPIRIN 81 MG ECTAB PO SCH ×2 (08:45→21:56)
[2021-03-30] MEDS: ENOXAPARIN INJ 40 MG/0.4 ML SYR SQ SCH (08:45)
[2021-03-30] MEDS: FLUTICASONE/VILANTEROL 200/25MCG 14 PUFFS/INHALER INH SCH (08:48)
[2021-03-30] MEDS: SERTRALINE HCL 50 MG TABLET PO SCH (08:48)
[2021-03-30 09:03] LABS: Albumin Level 2.6 gm/dl (3.4-5.0); BUN Creatinine Ratio 13.6 (10-20); Calcium 8.1 mg/dl (8.5-10.1); Creatinine Clr Calc Pharmacy 61.7 ml/min; Est GFR (African American) 76.7 ml/min; Est GFR (Non-African American) 66.1 ml/min; Potassium 4.2 mmol/L (3.5-5.1)
[2021-03-30 09:05] LABS: Albumin Globulin Ratio 0.9 (0.9-2); Bilirubin,Total 1.6 mg/dl (0.2-1); Globulin 2.7 gm/dl (2.5-4.0); Total Protein 5.3 gm/dl (6.4-8.2)
--- NOTE | 2021-03-30 09:38 | Gastrointestinal Consultation ---
Date of Consultation March 30, 2021 Assessment & Plan (1) Abdominal pain: 80 year old male admitted w/ midline abd pain and nausea x 2 days who was febrile on arrival. Tbili 1.8 on arrival w. normal transaminases. imaging reviewed. Given history of biliary stricture will arrange MRCP NPO for MRCP Analgesia PRN Antiemetics PRN Continue other supportive measures at present Thank you for allowing us to participate in the care of this patient. Please call with any acute changes, questions or concerns. Please see addendum below with additional recommendation from my supervising physician. (2) Fever: Supervising Physician Co-Signing Physician Notes I performed a history and physical examination of the patient today, including specifically on physical exam - soft abdomen. I have discussed the patient's management with the advanced practitioner. Please refer to the nurse practitioner's note for the documented findings and plan of care. MRCP today History of Present Illness Reason for Consultation: abd pain Requesting Physician: Rajni Attending Physician: Charlie Urban MD History of Present Illness 80 year old male with history of CAD s/p CABG w/ cardiac stent, HTN, dy slipidemia, PE on AC, asthma, prostate CA s/p radiation, MGUS, hypothyroidism admitted w/ abdominal pain. Pt was seen and evaluated, chart reviewed. Onset of pain 2 days ago. Pain is upper abd, midline and left. This was associated with nausea but he denies vomiting or GERD to me. Denies any change to his bowel habits. He was febrile on admission. CTAP 2020: No bowel wall thickening or obstruction. Prior appendectomy. No change in the mild dilatation of the main pancreatic duct and moderate left intrahepatic bile duct dilatation.Cholecystectomy. There is a lobular low- density lesion located between the superior mesenteric vein and left renal vein which measures 4.2 x 2.0 cm. There is new compared the prior study and demonstrates mild adjacent inflammatory change. Therefore, this could represent a pancreatic pseudocyst or enlarged lymph node. One-month pancreatic CT follow- up recommended to ensure resolution of this abnormality. Minimal peripancreatic inflammatory change at the uncinate process has almost completely resolved in the interval. ERCP 2020: One visibly patent stent from the biliary tree was seen in the major papilla. - Prior biliary sphincterotomy appeared open. - The entire main bile duct was dilated. - The patient has had a cholecystectomy. - Choledocholithiasis was found. Complete removal was accomplished by balloon extraction. The previously noted stricture has resolved (likely inflammatory) - One stent was removed from the biliary tree. - The biliary tree was swept. - Indomethacin given to decrease risk of post-ERCP pancreatitis. Allergies Allergy/AdvReac Type Severity Reaction Status Date / Time Beta-Blockers AdvReac Mild History Verified 03/29/21 19:25 (Beta-Adrenergic Bloc intolerance as per records codeine AdvReac Mild N/V Verified 03/29/21 19:25 Home Medications Medication Instructions Recorded Confirmed Type guaifenesin 600 mg tablet, 600 mg PO Q12H 10/31/18 03/29/21 History extended release 12 hr (Mucinex) levothyroxine 137 mcg tablet 137 mcg PO 4XWK 10/31/18 03/29/21 History levothyroxine 150 mcg tablet 150 mcg PO 3XWK 10/31/18 03/29/21 History (Synthroid) potassium chloride 10 mEq 10 meq PO UD 10/31/18 03/29/21 History tablet,extended release(part/cryst) (Klor-Con M) sertraline 50 mg tablet (Zoloft) 50 mg PO QAM 10/31/18 03/29/21 History tamsulosin 0.4 mg capsule (Flomax) 0.4 mg PO HS 10/31/18 03/29/21 History triamcinolone acetonide 55 mcg 1 spray INTRANASAL BID 10/31/18 03/29/21 History nasal spray aerosol acetaminophen 500 mg capsule 500 mg PO Q4 PRN MDD 3g 07/12/19 03/29/21 History albuterol sulfate 90 mcg/actuation 2 puff INHALATION Q6H PRN 07/12/19 03/29/21 History aerosol inhaler fluticasone 250 mcg-salmeterol 50 1 inh INHALATION BID 07/12/19 03/29/21 History mcg/dose blistr powdr for inhalation (Wixela Inhub) ipratropium 0.5 mg-albuterol 3 mg 3 ml INHALATION Q4H PRN 07/12/19 03/29/21 History (2.5 mg base)/3 mL nebulization soln Probiotic 1 cap PO QAM 07/24/19 03/29/21 History meclizine 25 mg tablet 25 mg PO Q6 PRN 07/24/19 03/29/21 History atorvastatin 80 mg tablet 80 mg PO HS 12/06/20 03/29/21 History cholecalciferol (vitamin D3) 25 25 mcg PO QAM 12/06/20 03/29/21 History mcg (1,000 unit) tablet (Vitamin D3) famotidine 20 mg tablet (Pepcid) 20 mg PO BID 12/06/20 03/30/21 History hydrochlorothiazide 12.5 mg capsule 12.5 mg PO QAM 12/06/20 03/29/21 History losartan 100 mg tablet 100 mg PO QAM 12/06/20 03/29/21 History verapamil 180 mg tablet,extended 180 mg PO HS 12/06/20 03/29/21 History release aspirin 81 mg tablet,delayed 81 mg PO BID 01/13/21 03/29/21 History release Patient History Medical History Afib post-op CABG, no known recurrences per pt Asthma BPH (benign prostatic hyperplasia) CAD (coronary artery disease) CABG (2018) + stents (MARY to prox Lcx, MARY x2 to mid LAD- 2018) Clostridium difficile carrier COPD (chronic obstructive pulmonary disease) High serum chloride History of Graves' disease History of pulmonary embolism 2010, AC since discontinued Hypertension Hypothyroidism Leukocytosis Prostate cancer S/P seed implant Skin cancer Surgical History H/O rotator cuff surgery History of appendectomy History of basal cell carcinoma (BCC) excision History of cardiac cath CABG (2018) + stents (MARY to prox Lcx, MARY x2 to mid LAD- 2018) History of cholecystectomy Lap cholecystectomy, open repair of umbilical hernia (12/09/2020): Grade 2 view, MAC #3, ETT 7.5 at [facility] History of colonoscopy with polypectomy History of cystoscopy History of eye surgery History of hernia repair History of malignant melanoma of skin Back, eyelid History of thyroidectomy, total History of vasectomy Status post double vessel coronary artery bypass CABG (2018) Status post operation on nasal sinus 2002 Family History Father Cancer Prostate and bladder Mother Stroke Breast cancer Social History Smoking Status: Never smoker Age Quit Using Tobacco: 27; Number of Years Since Quit: 50; Second Hand Exposure: No; Do You Dip or Chew Tobacco: No; Hx Alcohol Use: Yes Alcohol type: beer and hard liquor Alcohol Intake Frequency Comment: 1-2 drinks per day Hx Substance Use: Yes Preferred Language: Portuguese Communication Ability: Effective Webbing Inspector Required: No Beliefs That Will Affect Care: None marital status: Current Living Situation: Spouse current occupational status: retired current occupation: Retired Other Information That Helps Us Care for You: No Feels Safe at Home: Yes Safety Concerns: Feels Safe At This Time Assistive Devices: None Review of Systems Review of Systems: All systems reviewed & are unremarkable except as noted in HPI & below Physical Exam Constitutional: WD/WN, vitals as above Neck: trachea midline, no thyromegaly Respiratory: normal respiratory effort, lungs clear to auscultation Cardiovascular: RRR, no murmur, no edema Gastrointestinal (Abdomen): Inspection/Auscultation: abdomen normal to inspection and normal bowel sounds; abdomen not distended Percussion/Palpation: + abdomen tender and abdomen soft; abdomen not rigid, no abdominal mass and no ascites Skin: no rashes, warm and dry Results & Data ([facility]) Vital Signs (Past 12 Hours) Vital Signs Temp Pulse Resp BP Pulse Ox 03/30/21 07:18 37.1 C 75 18 111/61 91 03/29/21 22:53 37.1 C 86 16 164/76 H 93 03/29/21 21:48 87 L Laboratory Results 03/30/21 03/30/21 03/29/21 Range/Units 08:11 08:11 20:37 WBC 9.79 (4.8-10.8) K/uL RBC 4.40 L (4.7-6.1) M/uL Hgb 13.2 L (14.0-18.0) g/dL POC Hgb (14.0-18.0) g/dl Hct 40.7 L (42-52) % POC Hct (42-52) % MCV 92.5 (80-100) fL MCH 30.0 (25-34) pg MCHC 32.4 (32-36) g/dL RDW Std Deviation 50.9 H (36.4-46.3) fL RDW Coeff of Valentino 15.0 H (11.5-14.5) % Plt Count 142 (130-400) K/uL MPV 10.9 H (7.4-10.4) fL Immature Gran % (Auto) 0.8 % Neut % (Auto) 81.6 % Lymph % (Auto) 6.0 % Lares % (Auto) 10.9 % Eos % (Auto) 0.5 % Baso % (Auto) 0.2 % Neut # (Auto) 7.98 H (1.4-6.5) K/uL Lymph # (Auto) 0.59 L (1.2-3.4) K/uL Lares # (Auto) 1.07 H (0.11-0.59) K/uL Eos # (Auto) 0.05 (0-0.5) K/uL Baso # (Auto) 0.02 (0-0.2) K/uL Immature Gran # (Auto) 0.08 H (0.00-0.02) K/uL PT (9.0-12.0) Seconds INR (0.9-1.1) APTT (21.0-31.0) Seconds PTT Ratio POC Sodium (135-144) mmol/L Sodium 136 (136-145) mmol/L POC Potassium (3.3-5.0) mmol/L Potassium 4.2 D (3.5-5.1) mmol/L POC Chloride (101-112) mmol/L Chloride 106 (98-107) mmol/L Carbon Dioxide 24 (21-32) mmol/L POC Total CO2 (24-31) mmol/L Anion Gap 6.0 (3-11) POC Anion Gap (16-25) mmol/L POC BUN (7-18) mg/dl BUN 15 (7-18) mg/dl Creatinine 1.07 (0.6-1.4) mg/dl POC Creatinine (0.6-1.3) mg/dl Est Cr Clr Drug Dosing 61.7 ml/min Est GFR ( Amer) 76.7 ml/min Est GFR (Non-Af Amer) 66.1 ml/min BUN/Creatinine Ratio 13.6 (10-20) Glucose 81 (70-99) mg/dl POC Glucose (other) (70-99) mg/dl Calcium 8.1 L (8.5-10.1) mg/dl POC Ioniz Calcium Ruben (1.12-1.32) mmol/l Magnesium (1.8-2.4) mg/dl Total Bilirubin 1.6 H (0.2-1) mg/dl AST 17 (15-37) U/L ALT 33 (12-78) U/L Alkaline Phosphatase 79 (45-117) U/L Troponin I (0-0.045) ng/ml Total Protein 5.3 L (6.4-8.2) gm/dl Albumin 2.6 L (3.4-5.0) gm/dl Globulin 2.7 (2.5-4.0) gm/dl Albumin/Globulin Ratio 0.9 (0.9-2) Lipase (73-393) U/L Urine Color Urine Appearance (Clear) Urine pH (4.5-7.5) Ur Specific [place] (1.000-1.030) Urine Protein (Negative) Urine Glucose (UA) (Negative) Urine Ketones (Negative) Urine Blood (Negative) Urine Nitrite (Negative) Urine Bilirubin (Negative) Urine Urobilinogen (Negative) Ur Leukocyte Esterase (Negative) COVID-19 Eval Order SARS-CoV-2 (PCR) NEGATIVE (Negative) 03/29/21 03/29/21 03/29/21 Range/Units 20:37 18:52 18:34 WBC (4.8-10.8) K/uL RBC (4.7-6.1) M/uL Hgb (14.0-18.0) g/dL POC Hgb 15.0 (14.0-18.0) g/dl Hct (42-52) % POC Hct 44 (42-52) % MCV (80-100) fL MCH (25-34) pg MCHC (32-36) g/dL RDW Std Deviation (36.4-46.3) fL RDW Coeff of Valentino (11.5-14.5) % Plt Count (130-400) K/uL MPV (7.4-10.4) fL Immature Gran % (Auto) % Neut % (Auto) % Lymph % (Auto) % Lares % (Auto) % Eos % (Auto) % Baso % (Auto) % Neut # (Auto) (1.4-6.5) K/uL Lymph # (Auto) (1.2-3.4) K/uL Lares # (Auto) (0.11-0.59) K/uL Eos # (Auto) (0-0.5) K/uL Baso # (Auto) (0-0.2) K/uL Immature Gran # (Auto) (0.00-0.02) K/uL PT (9.0-12.0) Seconds INR (0.9-1.1) APTT (21.0-31.0) Seconds PTT Ratio POC Sodium 137 (135-144) mmol/L Sodium (136-145) mmol/L POC Potassium 3.3 (3.3-5.0) mmol/L Potassium (3.5-5.1) mmol/L POC Chloride 98 L (101-112) mmol/L Chloride (98-107) mmol/L Carbon Dioxide (21-32) mmol/L POC Total CO2 24 (24-31) mmol/L Anion Gap (3-11) POC Anion Gap 19.0 (16-25) mmol/L POC BUN 12 (7-18) mg/dl BUN (7-18) mg/dl Creatinine (0.6-1.4) mg/dl POC Creatinine 0.9 (0.6-1.3) mg/dl Est Cr Clr Drug Dosing ml/min Est GFR ( Amer) ml/min Est GFR (Non-Af Amer) ml/min BUN/Creatinine Ratio (10-20) Glucose (70-99) mg/dl POC Glucose (other) 92 (70-99) mg/dl Calcium (8.5-10.1) mg/dl POC Ioniz Calcium Ruben 1.15 (1.12-1.32) mmol/l Magnesium (1.8-2.4) mg/dl Total Bilirubin (0.2-1) mg/dl AST (15-37) U/L ALT (12-78) U/L Alkaline Phosphatase (45-117) U/L Troponin I (0-0.045) ng/ml Total Protein (6.4-8.2) gm/dl Albumin (3.4-5.0) gm/dl Globulin (2.5-4.0) gm/dl Albumin/Globulin Ratio (0.9-2) Lipase (73-393) U/L Urine Color Yellow Urine Appearance Clear (Clear) Urine pH 8.5 H (4.5-7.5) Ur Specific [place] 1.014 (1.000-1.030) Urine Protein Negative (Negative) Urine Glucose (UA) Negative (Negative) Urine Ketones Negative (Negative) Urine Blood Negative (Negative) Urine Nitrite Negative (Negative) Urine Bilirubin Negative (Negative) Urine Urobilinogen Negative (Negative) Ur Leukocyte Esterase Negative (Negative) COVID-19 Eval Order Covid19 at [facility] SARS-CoV-2 (PCR) (Negative) 03/29/21 03/29/21 03/29/21 Range/Units 18:34 18:34 18:34 WBC 13.16 H (4.8-10.8) K/uL RBC 4.87 (4.7-6.1) M/uL Hgb 14.9 (14.0-18.0) g/dL POC Hgb (14.0-18.0) g/dl Hct 44.6 (42-52) % POC Hct (42-52) % MCV 91.6 (80-100) fL MCH 30.6 (25-34) pg MCHC 33.4 (32-36) g/dL RDW Std Deviation 48.6 H (36.4-46.3) fL RDW Coeff of Valentino 14.5 (11.5-14.5) % Plt Count 164 (130-400) K/uL MPV 11.0 H (7.4-10.4) fL Immature Gran % (Auto) 0.7 % Neut % (Auto) 84.8 % Lymph % (Auto) 6.0 % Lares % (Auto) 7.8 % Eos % (Auto) 0.5 % Baso % (Auto) 0.2 % Neut # (Auto) 11.16 H (1.4-6.5) K/uL Lymph # (Auto) 0.79 L (1.2-3.4) K/uL Lares # (Auto) 1.03 H (0.11-0.59) K/uL Eos # (Auto) 0.07 (0-0.5) K/uL Baso # (Auto) 0.02 (0-0.2) K/uL Immature Gran # (Auto) 0.09 H (0.00-0.02) K/uL PT 11.0 (9.0-12.0) Seconds INR 1.1 (0.9-1.1) APTT 30.2 (21.0-31.0) Seconds PTT Ratio 1.1 POC Sodium (135-144) mmol/L Sodium 138 (136-145) mmol/L POC Potassium (3.3-5.0) mmol/L Potassium 3.4 L (3.5-5.1) mmol/L POC Chloride (101-112) mmol/L Chloride 103 (98-107) mmol/L Carbon Dioxide 27 (21-32) mmol/L POC Total CO2 (24-31) mmol/L Anion Gap 8.0 (3-11) POC Anion Gap (16-25) mmol/L POC BUN (7-18) mg/dl BUN 12 (7-18) mg/dl Creatinine 1.02 (0.6-1.4) mg/dl POC Creatinine (0.6-1.3) mg/dl Est Cr Clr Drug Dosing 64.7 ml/min Est GFR ( Amer) 81.2 ml/min Est GFR (Non-Af Amer) 70.1 ml/min BUN/Creatinine Ratio 11.9 (10-20) Glucose 94 (70-99) mg/dl POC Glucose (other) (70-99) mg/dl Calcium 8.1 L (8.5-10.1) mg/dl POC Ioniz Calcium Ruben (1.12-1.32) mmol/l Magnesium 2.0 (1.8-2.4) mg/dl Total Bilirubin 1.8 H (0.2-1) mg/dl AST 16 (15-37) U/L ALT 32 (12-78) U/L Alkaline Phosphatase 89 (45-117) U/L Troponin I < 0.015 (0-0.045) ng/ml Total Protein 6.4 (6.4-8.2) gm/dl Albumin 3.2 L (3.4-5.0) gm/dl Globulin 3.2 (2.5-4.0) gm/dl Albumin/Globulin Ratio 1.0 (0.9-2) Lipase 124 (73-393) U/L Urine Color Urine Appearance (Clear) Urine pH (4.5-7.5) Ur Specific [place] (1.000-1.030) Urine Protein (Negative) Urine Glucose (UA) (Negative) Urine Ketones (Negative) Urine Blood (Negative) Urine Nitrite (Negative) Urine Bilirubin (Negative) Urine Urobilinogen (Negative) Ur Leukocyte Esterase (Negative) COVID-19 Eval Order SARS-CoV-2 (PCR) (Negative) (1) Fever Fever type: unspecified Qualified Code(s): R50.9 - Fever, unspecified (2) Abdominal pain Abdominal location: upper abdomen, unspecified Qualified Code(s): R10.10 - Upper abdominal pain, unspecified
[2021-03-30] MEDS: PROMETHAZINE HCL 12.5 MG in SODIUM CHLORIDE 0.9% 50 ML IV PRN ×2 (10:03→20:36)
[2021-03-30] MEDS: TRIAMCINOLONE ACET NASAL SPRAY 10.8ML BTL SCH ×2 (10:04→21:58)
--- NOTE | 2021-03-30 10:39 | Hospitalist Progress Note ---
Date of Service March 30, 2021 Assessment & Plan (1) Abdominal pain: (2) Hyperbilirubinemia: (3) CAD (coronary artery disease): (4) Hypokalemia: (5) HTN (hypertension): (6) Hypothyroidism: Plan: This is a 80-year-old male who has significant past medical history of CAD with CABG x2 in 2019, HTN, HLD, asthma, hypothyroidism, history of PE, history of prostate cancer, BPH who presented ED secondary to acute abdominal pain. Of significance patient recently admitted 02/01 to 02/04/2021 secondary to post ERCP pancreatitis. Initial Lap Yajaira was performed on 12/09/20 due to acute cholecystitis with presenting cholangitis, transaminitis. He also underwent ERCP at that time with choledocholithiasis and underwent biliary sphincterotomy, plastic biliary stent was placed in left hepatic duct. He underwent ERCP/EUS on 01/30/[address] Heller for biliary stent removal, balloon sweep of bile duct stone secondary to retained sludge/stones. Presented last evening with abdominal pain, total bili 1.8 and elevated temp per records CT A/P: There is a lobular low-density lesion located between the superior mesenteric vein and left renal vein which measures 4.2 x 2.0 cm. There is new compared the prior study and demonstrates mild adjacent inflammatory change. Therefore, this could represent a pancreatic pseudocyst or enlarged lymph node. One-month pancreatic CT follow-up recommended to ensure resolution of this abnormality. 6. Minimal peripancreatic inflammatory change at the uncinate process has almost completely resolved in the interval. Abdominal pain hyperbilirubinemia admit to med/surg GI on board NPO to undergo MRCP continue IV zosyn for GI Switch IVF from NS + KCL to LR - hypokalemia resolved prn antiemetics and analgesia Total bili 1.8 --> 1.6, AST/ALT WNL blood cultures pending wbc trended to normal CAD hx of CABG x 2 HTN continue losartan, verapamil, statin, ASA HCTZ on hold Hypokalemia repleted in ED orally and IV resolved monitor Hypothyroidism continue synthroid BPH continue flomax DVT ppx: SQ Lovenox Dispo: med/surg PCP: Tricia FULL CODE Pt was seen and examined in collaboration with Dr. Urban, please see addendum Contact via [place] Text: Gracie Melchor (Pat[place]) Admission and Anticipated Discharge Date Admission Date: March 29, 2021 Supervising Physician Co-Signing Physician Notes Patient is seen and examined at bedside. States having mild abdominal pain. Did not tolerate broth this morning. Admits to having nausea but no vomiting this morning. Denies chest pain, shortness of breath, dizziness. On exam patient is moderately built and nourished, no apparent distress, normocephalic atraumatic, EOMI, normal breath sounds, clear to auscultation, no accessory muscle use, S1-S2, no murmur, no pedal edema, abdomen soft, mildly distended, nontender, normal bowel sounds, no guarding or rigidity, alert, awake, oriented, grossly no focal deficits. Abdominal pain Minimally pancreatic inflammatory change in the uncinate process ? Pseudocyst or generalized abdominal N.p.o. for now Plan for MRCP Appreciate GI input Further management based on MRCP results. I personally reviewed the record. Patient is interviewed and examined at bedside. Patient's care is coordinated with Gracie Melchor PA-C. Please refer to the documentation above for details of patient's presentation and for discussion of other issues. Subjective Pt was seen and examined in room 375-1. Follow up abdominal pain. Continues to c/o of mild abd discomfort LUQ to RUQ, 12/25. Improved from last evening. Still has nausea but no more vomiting. Sx came on abruptly yesterday with associated vomiting, denies hematemesis. He denies feeling feverish, chills, sweats, weakness, dizziness, chest pain, shortness breath, URI symptoms, positive flatus but no BM this morning. Review of Systems Review of Systems: All systems reviewed & are unremarkable except as noted in HPI & below Physical Exam Physical Exam: Gen: WD/WN, M, NAD, A&O x3 HEENT: Normocephalic, atraumatic, conjunctivae moist, sclerae anicteric, mucous membranes moist. Lung: Clear to Auscultation bilaterally, no wheezes/rales/rhonchi Heart: Regular rate, regular rhythm, no murmurs, rubs, or gallops Abdomen: Soft, protuberant, NT, ND +BS x 4 Extremities: No edema Skin: Warm, no rash, negative turgor. Results & Data Results & Data ([facility]) Vital Signs (Past 12 Hours) Vital Signs Temp Pulse Resp BP Pulse Ox 03/30/21 07:18 37.1 C 75 18 111/61 91 03/29/21 22:53 37.1 C 86 16 164/76 H 93 Diagnostic Findings Abdomen/Pelvis CT 03/29/21 18:[address] WITH IV CONTRAST CT DOSE: 557.23 mGy.cm HISTORY: lower pain and fever TECHNIQUE: Multiaxial CT images of the abdomen and pelvis were performed following the use of intravenous contrast. A dose lowering technique was utilized adhering to the principles of ALARA. COMPARISON STUDY: Abdomen and pelvis CT 01/31/2021. FINDINGS: There are poststernotomy changes. Trace right pleural effusion. A few bibasilar linear densities consistent with subsegmental atelectasis. No pneumoperitoneum. No pneumatosis. Stable small sclerotic foci within the left sacrum and left posterior iliac bone. Old, healed right lower rib fractures. Prior cholecystectomy. Moderate left intrahepatic bile duct dilatation, unchanged. There is a stable 1.5 cm cyst within the left hepatic lobe. Trace pneumobilia within the dilated left intrahepatic bile ducts. The main portal vein is patent. The spleen is unremarkable. Normal adrenal glands. Right renal parapelvic cyst remains unchanged. Subcentimeter left renal hypodense lesions are also stable. These are technically too small to characterize but favor cysts. No hydronephrosis. Mild bladder wall thickening. This is likely chronic. Multiple brachytherapy seeds again noted within the prostate gland. No pelvic lymphadenopathy. Lobular low density lesion located between the superior m esenteric vein and left renal vein best seen on image 126. This may represent an abnormally enlarged peripancreatic lymph node or complex pancreatic pseudocyst. This measures 4.2 x 2.0 cm. This is best seen on image 126. This is new compared the prior study. There is stable prominence of the main pancreatic duct and common bile duct. Bilateral perinephric edema, unchanged. Minimal peripancreatic inflammatory change at the uncinate process has almost completely resolved in the interval. The appendix is not identified and reportedly surgically absent. Stable mild asymmetric enlargement of the left seminal vesicle. Colonic diverticulosis. No evidence for acute diverticulitis. Moderate well-formed stool within the colon. No bowel wall thickening or obstruction. IMPRESSION: 1. No bowel wall thickening or obstruction. 2. Prior appendectomy. 3. No change in the mild dilatation of the main pancreatic duct and moderate left intrahepatic bile duct dilatation. 4. Cholecystectomy. 5. There is a lobular low-density lesion located between the superior mesenteric vein and left renal vein which measures 4.2 x 2.0 cm. There is new compared the prior study and demonstrates mild adjacent inflammatory change. Therefore, this could represent a pancreatic pseudocyst or enlarged lymph node. One-month pancreatic CT follow-up recommended to ensure resolution of this abnormality. 6. Minimal peripancreatic inflammatory change at the uncinate process has almost completely resolved in the interval. ACT 112: Positive. There are findings on this exam that require communication between the performing entity and the patient following Patient Test Result Information Act ([place] Act 112) guidelines. Electronically signed by: Jerry Yeager M.D. 03/29/2021 7:45 PM Chest X-Ray 03/29/21 20:32 XR chest 1V portable INDICATION: [place] ^fever. TECHNIQUE: Single frontal radiograph of the chest was obtained. Comparison: Comparison is made to chest one view 12/06/2020 FINDINGS: Mediastinal wires are stable. Calcified aortic knob is seen. The lungs are clear. No evidence of pleural effusion or pneumothorax. IMPRESSION: No acute abnormality and in particular no evidence of pneumonia. ACT 112: Negative or not required by law. Electronically signed by: Suraj Shane M.D. 03/30/2021 7:40 AM Medications Administered Medication List Aspirin (Aspirin 81 Mg Ectab) 81 mg PO BID JOHANA Stop: 04/29/21 08:59 Last Admin: 03/30/21 08:45 Dose: 81 mg Documented by: [id number] Atorvastatin Calcium (Atorvastatin 40 Mg Tab) 80 mg PO HS JOHANA Stop: 04/29/21 20:59 Last Admin: 03/30/21 08:48 Dose: 80 mg Documented by: [id number] Enoxaparin Sodium (Enoxaparin Inj 40 Mg/0.4 Ml Syr) 40 mg SQ QAM JOHAAN Stop: 04/29/21 08:59 Last Admin: 03/30/21 08:45 Dose: 40 mg Documented by: [id number] Famotidine (Famotidine 20 Mg Tab) 20 mg PO QAM JOHANA Stop: 04/29/21 08:59 Last Admin: 03/30/21 08:45 Dose: 20 mg Documented by: [id number] Fluticasone/Vilanterol (Fluticasone/Vilanterol 200/25mcg 14 Puffs/Inhaler) 1 puffs INH DAILY [facility] Stop: 04/29/21 08:59 Last Admin: 03/30/21 08:48 Dose: 1 puffs Documented by: [id number] Promethazine HCl 12.5 mg/ (Sodium Chloride) 50.5 mls @ 202 mls/hr IV Q6H PRN PRN Reason: Nausea And Vomiting Stop: 04/28/21 21:00 Last Admin: 03/30/21 10:03 Dose: 202 mls/hr Documented by: [id number] Infusion: 03/29/21 21:50 Dose: 0 mls/hr Documented by: [id number] Admin: 03/29/21 21:22 Dose: 202 mls/hr Documented by: [id number] Potassium Chloride 40 meq/ (Lactated Ringer's) 1,020 mls @ 60 mls/hr IV .Q17H ONE Stop: 03/30/21 16:29 Last Admin: 03/29/21 23:54 Dose: 60 mls/hr Documented by: [id number] Lactobacillus Acidoph/Casei/Rhamnos (Advanced Probiotic 1250 Mg Capsule) [facility] [place] Stop: 04/29/21 08:59 Last Admin: 03/30/21 08:44 Dose: 2 cap Documented by: [id number] Levothyroxine Sodium (Levothyroxine Sodium 150 Mcg Tablet) 150 mcg PO [id number] [facility] Stop: 04/29/21 06:29 Last Admin: 03/30/21 05:56 Dose: 150 mcg Documented by: [id number] Losartan Potassium (Losartan Potassium 50 Mg Tab) 100 mg PO QAM [facility] Stop: 04/29/21 08:59 Last Admin: 03/30/21 08:44 Dose: 100 mg Documented by: [id number] Morphine Sulfate (Morphine Sulfate 4 Mg/Ml 1 Ml Carp\Vial) 4 mg IV Q4H PRN PRN Reason: Pain Stop: 04/12/21 21:00 Last Admin: 03/30/21 03:00 Dose: 4 mg Documented by: [id number] Admin: 03/29/21 21:22 Dose: 4 mg Documented by: [id number] Sertraline HCl (Sertraline Hcl 50 Mg Tablet) 50 mg PO QAM [facility] Stop: 04/29/21 08:59 Last Admin: 03/30/21 08:48 Dose: 50 mg Documented by: [id number] Triamcinolone Acetonide (Triamcinolone Acet Nasal Hurley 10.8ml Btl) 1 sprays NA BID JOHANA Stop: 04/29/21 08:59 Last Admin: 03/30/21 10:04 Dose: 1 sprays Documented by: [id number] Discontinued Medications Sodium Chloride (Nss 1000ml) 1,000 mls @ 999 mls/hr IV .Q1H1M STA Stop: 03/29/21 19:23 Last Infusion: 03/29/21 19:45 Dose: 0 mls/hr Documented by: [id number] Admin: 03/29/21 18:43 Dose: 999 mls/hr Documented by: [id number] Piperacillin Sod/Tazobactam Sod (Zosyn) 4.5 gm in 120 mls @ 240 mls/hr IV NOW ONE Stop: 03/29/21 21:01 Last Infusion: 03/29/21 22:33 Dose: 0 mls/hr Documented by: [id number] Admin: 03/29/21 21:22 Dose: 240 mls/hr Documented by: [id number] Potassium Chloride (Potassium Chloride Crtab 20 Meq Tabcr) 40 meq PO NOW STA Stop: 03/29/21 20:46 Last Admin: 03/29/21 21:21 Dose: 40 meq Documented by: [id number] Promethazine HCl (Promethazine 12.5 Mg/50.5 Ml Nss) Confirm Administered Dose 12.5 mg IV .STK-MED ONE Stop: 03/29/21 21:18 Last Admin: 03/29/21 21:22 Dose: Not Given Documented by: [id number] Tamsulosin HCl (Tamsulosin Hcl 0.4 Mg Cap) 0.4 mg PO NOW ONE Stop: 03/29/21 21:56 Last Admin: 03/29/21 22:40 Dose: 0.4 mg Documented by: [id number] Verapamil HCl (Verapamil Hcl 180 Mg Tabcr) 180 mg PO NOW STA Stop: 03/29/21 20:46 Last Admin: 03/29/21 22:40 Dose: 180 mg Documented by: [id number] COVID-19 Results Results COVID-19 Adm Lab Results: RBC 4.40 M/uL (4.7-6.1) L 03/30/21 WBC 9.79 K/uL (4.8-10.8) 03/30/21 Hgb 13.2 g/dL (14.0-18.0) L 03/30/21 Hct 40.7 % (42-52) L 03/30/21 Plt Count 142 K/uL (130-400) 03/30/21 Neutrophils (%) (Auto) 81.6 % 03/30/21 Lymphocytes (%) (Auto) 6.0 % 03/30/21 Monocytes # (Auto) 1.07 K/uL (0.11-0.59) H 03/30/21 Eosinophils # (Auto) 0.05 K/uL (0-0.5) 03/30/21 Immature Granulocyte % (Auto) 0.8 % 03/30/21 Neutrophils # (Auto) 7.98 K/uL (1.4-6.5) H 03/30/21 Lymphocytes # (Auto) 0.59 K/uL (1.2-3.4) L 03/30/21 Monocytes # (Auto) 1.07 K/uL (0.11-0.59) H 03/30/21 Eosinophils # (Auto) 0.05 K/uL (0-0.5) 03/30/21 Basophils # (Auto) 0.02 K/uL (0-0.2) 03/30/21 Immature Granulocyte # (Auto) 0.08 K/uL (0.00-0.02) H 03/30/21 Na 136 mmol/L (136-145) 03/30/21 K 4.2 mmol/L (3.5-5.1) 03/30/21 Cl 106 mmol/L (98-107) 03/30/21 CO2 24 mmol/L (21-32) 03/30/21 Anion Gap 6.0 (3-11) 03/30/21 BUN 15 mg/dl (7-18) 03/30/21 Creatinine 1.07 mg/dl (0.6-1.4) 03/30/21 BUN/Creatinine Ratio 13.6 (10-20) 03/30/21 Glucose Level 81 mg/dl (70-99) 03/30/21 Ca 8.1 mg/dl (8.5-10.1) L 03/30/21 Total Bilirubin 1.6 mg/dl (0.2-1) H 03/30/21 AST/SGOT 17 U/L (15-37) 03/30/21 ALT/SGPT 33 U/L (12-78) 03/30/21 Alkaline Phosphatase 79 U/L (45-117) 03/30/21 Total Protein 5.3 gm/dl (6.4-8.2) L 03/30/21 Albumin 2.6 gm/dl (3.4-5.0) L 03/30/21 Globulin 2.7 gm/dl (2.5-4.0) 03/30/21 Albumin/Globulin Ratio 0.9 (0.9-2) 03/30/21 Troponin I < 0.015 ng/ml (0-0.045) 03/29/21 PTT 30.2 Seconds (21.0-31.0) 03/29/21 INR 1.1 (0.9-1.1) 03/29/21 COVID-19 PCR NEGATIVE (Negative) 03/29/21 Chest X-Ray 03/29/21 (1) Abdominal pain Abdominal location: upper abdomen, unspecified Qualified Code(s): R10.10 - Upper abdominal pain, unspecified
[2021-03-30] MEDS ORDERED: PIPERACILLIN/TAZOBACTAM 4.5 GM in DEXTROSE 5% 100 ML IV ONE (11:00)
[2021-03-30] MEDS: LACTATED RINGER'S 1,000 ML IV SCH ×2 (11:55→21:59)
--- NOTE | 2021-03-30 15:26 | Electrocardiogram Report ---
Test Reason : Blood Pressure : / mmHG Vent. Rate : 087 BPM Atrial Rate : 087 BPM P-R Int : 128 ms QRS Dur : 098 ms QT Int : 374 ms P-R-T Axes : 039 006 052 degrees QTc Int : 450 ms Poor data quality, interpretation may be adversely affected Normal sinus rhythm Possible Inferior infarct (cited on or before 01-FEB-2021) Poor R wave progression, consider anterior AK vs. lead placement vs. LVH Abnormal ECG When compared with ECG of 01-FEB-2021 00:26, No significant change was found Confirmed by Kevin Carrizales ([id number]) on 03/30/2021 3:26:18 PM Referred By: REFERRED SELF Confirmed By:Kevin Carrizales
[2021-03-30] MEDS: PIPERACILLIN/TAZOBACTAM 3.375 GM in DEXTROSE 5% 100 ML IV SCH (17:15)
[2021-03-30] MEDS ORDERED: ATORVASTATIN 40 MG TAB PO SCH (21:00)
[2021-03-30] MEDS ORDERED: VERAPAMIL HCL 180 MG TABCR PO SCH (21:00)
[2021-03-30] MEDS ORDERED: TAMSULOSIN HCL 0.4 MG CAP PO SCH (21:00)
[2021-03-31] MEDS: PIPERACILLIN/TAZOBACTAM 3.375 GM in DEXTROSE 5% 100 ML IV SCH ×2 (00:12→08:28)
[2021-03-31] MEDS ORDERED: LEVOTHYROXINE SODIUM 137 MCG TABLET PO SCH (06:30)
[2021-03-31 06:34] LABS: Hematocrit (blood only) 37.6 % (42-52); Hemoglobin 12.5 g/dL (14.0-18.0); Mean Corpuscular Hemoglobin 30.6 pg (25-34); Mean Corpuscular Hgb Conc 33.2 g/dL (32-36); Mean Corpuscular Volume 91.9 fL (80-100); Platelet Count 121 K/uL (130-400); RDW Coefficient of Variation 14.7 % (11.5-14.5); RDW Standard Deviation 50.2 fL (36.4-46.3); Red Blood Count 4.09 M/uL (4.7-6.1); White Blood Count 4.64 K/uL (4.8-10.8)
[2021-03-31 06:58] LABS: Albumin Level 2.4 gm/dl (3.4-5.0); BUN Creatinine Ratio 11.6 (10-20); Calcium 8.2 mg/dl (8.5-10.1); Creatinine Clr Calc Pharmacy 62.9 ml/min; Est GFR (African American) 78.4 ml/min; Est GFR (Non-African American) 67.7 ml/min; Potassium 3.7 mmol/L (3.5-5.1)
[2021-03-31 06:59] LABS: Basophils # (auto) 0.01 K/uL (0-0.2); Basophils % (auto) 0.2 %; Echinocytes 1+; Eosinophils # (auto) 0.11 K/uL (0-0.5); Eosinophils % (auto) 2.4 %; Immature Granulocytes # (auto) 0.06 K/uL (0.00-0.02); Immature Granulocytes % (auto) 1.3 %; Lymphocytes % (auto) 15.1 %; Monocytes # (auto) 0.63 K/uL (0.11-0.59); Monocytes % (auto) 13.6 %; Neutrophils # (auto) 3.13 K/uL (1.4-6.5); Neutrophils % (auto) 67.4 %
[2021-03-31 07:00] LABS: Albumin Globulin Ratio 0.9 (0.9-2); Bilirubin,Total 1.3 mg/dl (0.2-1); Globulin 2.6 gm/dl (2.5-4.0)
[2021-03-31] MEDS: ENOXAPARIN INJ 40 MG/0.4 ML SYR SQ SCH (08:26)
[2021-03-31] MEDS: LOSARTAN POTASSIUM 50 MG TAB PO SCH (08:27)
[2021-03-31] MEDS: FAMOTIDINE 20 MG TAB PO SCH (08:27)
[2021-03-31] MEDS: SERTRALINE HCL 50 MG TABLET PO SCH (08:27)
[2021-03-31] MEDS: ASPIRIN 81 MG ECTAB PO SCH (08:27)
[2021-03-31] MEDS: FLUTICASONE/VILANTEROL 200/25MCG 14 PUFFS/INHALER INH SCH (08:27)
[2021-03-31] MEDS: ADVANCED PROBIOTIC 1250 MG CAPSULE PO SCH (08:27)
[2021-03-31] MEDS: LACTATED RINGER'S 1,000 ML IV SCH (08:28)
[2021-03-31] MEDS: TRIAMCINOLONE ACET NASAL SPRAY 10.8ML BTL SCH (08:28)
--- NOTE | 2021-03-31 08:49 | Magnetic Resonance Report ---
MRCP CLINICAL HISTORY: abd pain, nausea, fever rule out biliary stricutre TECHNIQUE: Utilizing a 1.5 Chi[place] magnet and dedicated coil, multiplanar, multiecho imaging of the upp er abdomen was performed utilizing heavily T2 weighted pulsing sequences without IV contrast. COMPARISON STUDY: December 07, 2020 FINDINGS: Limited evaluation of lower chest show trace bilateral pleural effusion which is unchanged since prio r. Liver is normal in size and signal characteristics. Stable size of slightly T2 hyperintense lesion wi thin left lobe of the liver which shows ill-defined borders on current exam (borders of this lesion w as well-defined during prior exam). Above-mentioned changes could be due to motion artifact. No intrahepatic biliary dilatation demonstrated. Extrahepatic biliary duct remain dilated measuring 1.1 cm in diameter. Previously seen filling defect within common bile duct is no longer visualized to suggest choledocholithiasis. Gallbladder is surgically absent. Pancreatic duct is slightly prominent and and patent. No adjacent f ocal pancreatic lesions are seen. Spleen, adrenal glands are unremarkable. Pancreas is atrophic. No definite peripancreatic edema is se en. No evidence of hydronephrosis. Large peripelvic cyst is again seen within the right kidney. Visualized loops of bowel are nondilated. Visualized portion of abdominal aorta is normal in caliber. IMPRESSION: 1. Atrophic pancreas. No pancreatic lesions are seen. Mild diffuse prominence of pancreatic duct are demonstrated without focal lesions. 2. Interval cholecystectomy. 3. Dilated common bile duct without evidence of focal filling defect to suggest obstructive calculi. 4. Redemonstration of the right renal peripelvic cyst. 5. Stable fluid signal lesion within left lobe of the liver, likely representing cyst. ACT 112: Negative or not required by law. The above report was generated using voice recognition software. It may contain grammatical, syntax o r spelling errors. Electronically signed by: Adriana Nuno DO 03/31/2021 8:47 AM
--- NOTE | 2021-03-31 09:11 | Gastroenterology Progress Note ---
Date of Service March 31, 2021 Assessment & Plan (1) Abdominal pain: Plan: 80 year old male admitted w/ pain, nausea (resolved) MRCP without any acute pathology No GI contraindication to diet No GI contraindication to discharge Should keep OP GI clinic appointment with Dr. Heller Start Pantoprazole 20 mg daily Continue Pepcid 20 mg daily Thank you for allowing us to participate in the care of this patient. Please call with any acute changes, questions or concerns. Please see addendum below with additional recommendation from my supervising physician. Admission and Anticipated Discharge Date Admission Date: March 30, 2021 Supervising Physician Co-Signing Physician Notes I performed a history and physical examination of the patient today, including specifically on physical exam - soft abdomen. I have discussed the patient's management with the advanced practitioner. Please refer to the nurse pr actitioner's note for the documented findings and plan of care. MRCP with no pathology. Recall GI if needed. Subjective Pt was seen and evaluated, chart reviewed. Feeling well this AM. Notes his pain for the most park was resolved. He did have some nausea yesterday. No vomiting. Moving bowels well. No black or bloody stools. MRCP: Atrophic pancreas. No pancreatic lesions are seen. Mild diffuse prominence of pancreatic duct are demonstrated without focal lesions. Interval cholecystectomy. Dilated common bile duct without evidence of focal filling defect to suggest obstructive calculi. Redemonstration of the right renal peripelvic cyst. Stable fluid signal lesion within left lobe of the liver, likely representing cyst. Review of Systems Review of Systems: All systems reviewed & are unremarkable except as noted in HPI & below Physical Exam Constitutional: WD/WN, vitals as above Respiratory: normal respiratory effort, lungs clear to auscultation Cardiovascular: RRR, no murmur, no edema Gastrointestinal (Abdomen): normal bowel sounds, soft, nontender, no hepatosplenomegaly Skin: no rashes, warm and dry Results & Data ([facility]) Vital Signs (Past 12 Hours) Vital Signs Temp Pulse Resp BP Pulse Ox 03/31/21 07:47 36.6 C 62 18 129/69 95 03/30/21 23:10 36.9 C 03/30/21 22:02 37.5 C 77 18 175/75 H 97 Laboratory Results 03/31/21 03/31/21 Range/Units 05:56 05:56 WBC 4.64 L D (4.8-10.8) K/uL RBC 4.09 L (4.7-6.1) M/uL Hgb 12.5 L (14.0-18.0) g/dL Hct 37.6 L (42-52) % MCV 91.9 (80-100) fL MCH 30.6 (25-34) pg MCHC 33.2 (32-36) g/dL RDW Std Deviation 50.2 H (36.4-46.3) fL RDW Coeff of Valentino 14.7 H (11.5-14.5) % Plt Count 121 L (130-400) K/uL MPV 11.0 H (7.4-10.4) fL Immature Gran % (Auto) 1.3 % Neut % (Auto) 67.4 % Lymph % (Auto) 15.1 % [place] % (Auto) 13.6 % Eos % (Auto) 2.4 % Baso % (Auto) 0.2 % Neut # (Auto) 3.13 (1.4-6.5) K/uL Lymph # (Auto) 0.70 L (1.2-3.4) K/uL [place]bour # (Auto) 0.63 H (0.11-0.59) K/uL Eos # (Auto) 0.11 (0-0.5) K/uL Baso # (Auto) 0.01 (0-0.2) K/uL Immature Gran # (Auto) 0.06 H (0.00-0.02) K/uL Echinocytes 1+ Sodium 140 (136-145) mmol/L Potassium 3.7 (3.5-5.1) mmol/L Chloride 110 H (98-107) mmol/L Carbon Dioxide 27 (21-32) mmol/L Anion Gap 3.0 (3-11) BUN 12 (7-18) mg/dl Creatinine 1.05 (0.6-1.4) mg/dl Est Cr Clr Drug Dosing 62.9 ml/min Est GFR ( Amer) 78.4 ml/min Est GFR (Non-Af Amer) 67.7 ml/min BUN/Creatinine Ratio 11.6 (10-20) Glucose 84 (70-99) mg/dl Calcium 8.2 L (8.5-10.1) mg/dl Total Bilirubin 1.3 H (0.2-1) mg/dl AST 18 (15-37) U/L ALT 29 (12-78) U/L Alkaline Phosphatase 67 (45-117) U/L Total Protein 5.0 L (6.4-8.2) gm/dl Albumin 2.4 L (3.4-5.0) gm/dl Globulin 2.6 (2.5-4.0) gm/dl Albumin/Globulin Ratio 0.9 (0.9-2) (1) Abdominal pain Abdominal location: upper abdomen, unspecified Qualified Code(s): R10.10 - Upper abdominal pain, unspecified
[2021-03-31] MEDS ORDERED: PANTOprazole 40 MG TAB PO SCH (09:30)
--- NOTE | 2021-03-31 11:26 | Hospitalist Progress Note ---
Date of Service March 31, 2021 Assessment & Plan (1) Abdominal pain: (2) Hyperbilirubinemia: (3) CAD (coronary artery disease): (4) Hypokalemia: (5) HTN (hypertension): (6) Hypothyroidism: Plan: This is a 80-year-old male who has significant past medical history of CAD with CABG x2 in 2019, HTN, HLD, asthma, hypothyroidism, history of PE, history of prostate cancer, BPH who presented ED secondary to acute abdominal pain. Of significance patient recently admitted 02/01 to 02/04/2021 secondary to post ERCP pancreatitis. Initial Lap Yajaira was performed on 12/09/20 due to acute cholecystitis with presenting cholangitis, transaminitis. He also underwent ERCP at that time with choledocholithiasis and underwent biliary sphincterotomy, plastic biliary stent was placed in left hepatic duct. He underwent ERCP/EUS on 01/30/[address] Heller for biliary stent removal, balloon sweep of bile duct stone secondary to retained sludge/stones. Presented evening of 03/29 with abdominal pain, total bili 1.8 and elevated temp per records [facility] A/P: There is a lobular low-density lesion located between the superior mesenteric vein and left renal vein which measures 4.2 x 2.0 cm. There is new compared the prior study and demonstrates mild adjacent inflammatory change. Therefore, this could represent a pancreatic pseudocyst or enlarged lymph node. One-month pancreatic CT follow-up recommended to ensure resolution of this abnormality. 6. Minimal peripancreatic inflammatory change at the uncinate process has almost completely resolved in the interval. Abdominal pain hyperbilirubinemia admitted to med/surg GI on board advanced diet - will see how he does with regular diet at lunch MRCP: 1. Atrophic pancreas. No pancreatic lesions are seen. Mild diffuse prominence of pancreatic duct are demonstrated without focal lesions. Interval cholecystectomy. Dilated common bile duct without evidence of focal filling defect to suggest obstructive calculi. Re demonstration of the right renal peripelvic cyst. Stable fluid signal lesion within left lobe of the liver, likely representing cyst. D/C IVF as tolerating diet blood cultures NGTD --> GI okay to d/c antibiotics prn antiemetics and analgesia Total bili 1.8 --> 1.6 --> 1.3 starting PPI once daily and continue famotidine ok to d/c per GI with follow up with them as out pt CAD hx of CABG x 2 HTN continue losartan, verapamil, statin, ASA HCTZ - resume at discharge Hypokalemia repleted in ED orally and IV resolved monitor Hypothyroidism continue synthroid BPH continue flomax DVT ppx: SQ Lovenox Dispo: med/surg -- d/c today after lunch PCP: Tricia FULL CODE Pt was seen and examined in collaboration with Dr. Urban, please see addendum Contact via [place] Text: Gracie Melchor (Pataky) Admission and Anticipated Discharge Date Admission Date: March 30, 2021 Supervising Physician Co-Signing Physician Notes Patient is seen and examined at bedside. States abdominal pain resolved. Denies nausea, vomiting. Tolerated diet. On exam patient is moderately built and nourished, no apparent distress, normo cephalic atraumatic, EOMI, normal breath sounds, clear to auscultation, no accessory muscle use, S1-S2, no murmur, no pedal edema, abdomen soft, mildly distended, nontender, normal bowel sounds, no guarding or rigidity, alert, awake, oriented, grossly no focal deficits. Abdominal pain Minimally pancreatic inflammatory change in the uncinate process ? Pseudocyst or generalized abdominal MRCP showed no pathology Tolerated diet Appreciate GI input Started on PPI Advised to follow-up with GI as outpatient if recurrence of symptoms. I personally reviewed the record. Patient is interviewed and examined at bedside. Patient's care is coordinated with Gracie Melchor PA-C. Please refer to the documentation above for details of patient's presentation and for discussion of other issues. Subjective Patient was seen and examined in room 375-1. He is feeling improved this morning. Still complains of LUQ mild discomfort. He is tolerating clear liquid diet. He denies f/c/s, dizziness, chest pain, sob, n/v, change in bowel or urinary habits. Had BM this a.m. and denies melena or hematochezia. Normal for him. Review of Systems Review of Systems: All systems reviewed & are unremarkable except as noted in HPI & below Physical Exam Physical Exam: Gen: WD/WN, NAD, A&O x3 HEENT: Normocephalic, atraumatic, conjunctivae moist, sclerae anicteric, mucous membranes moist. Lung: Clear to Auscultation bilaterally, no wheezes/rales/rhonchi Heart: Regular rate, regular rhythm, no murmurs, rubs, or gallops Abdomen: Soft, NT, ND +BS x 4 Extremities: No edema Skin: Warm, no rash, negative turgor. Results & Data Results & Data ([facility]) Vital Signs (Past 12 Hours) Vital Signs Temp Pulse Resp BP Pulse Ox 03/31/21 07:47 36.6 C 62 18 129/69 95 Laboratory Results Short CBC 03/31/21 Range/Units 05:56 WBC 4.64 L D (4.8-10.8) K/uL Hgb 12.5 L (14.0-18.0) g/dL Hct 37.6 L (42-52) % Plt Count 121 L (130-400) K/uL BMP 03/31/21 05:56 Sodium 140 Potassium 3.7 Chloride 110 H Carbon Dioxide 27 BUN 12 Creatinine 1.05 Glucose 84 Calcium 8.2 L Liver Function 03/31/21 Range/Units 05:56 Total Bilirubin 1.3 H (0.2-1) mg/dl AST 18 (15-37) U/L ALT 29 (12-78) U/L Alkaline Phosphatase 67 (45-117) U/L Albumin 2.4 L (3.4-5.0) gm/dl Diagnostic Findings MRCP IMPRESSION: 1. Atrophic pancreas. No pancreatic lesions are seen. Mild diffuse prominence of pancreatic duct are demonstrated without focal lesions. 2. Interval cholecystectomy. 3. Dilated common bile duct without evidence of focal filling defect to suggest obstructive calculi. 4. Redemonstration of the right renal peripelvic cyst. 5. Stable fluid signal lesion within left lobe of the liver, likely representing cyst. Medications Administered Medication List Acetaminophen (Acetaminophen 325 Mg Tab) 650 mg PO Q6H PRN PRN Reason: Fever/pain Stop: 04/28/21 21:00 Last Admin: 03/30/21 22:06 Dose: 650 mg Documented by: [id number] Aspirin (Aspirin 81 Mg Ectab) 81 mg PO BID JOHANA Stop: 04/29/21 08:59 Last Admin: 03/31/21 08:27 Dose: 81 mg Documented by: [id number] Admin: 03/30/21 21:56 Dose: 81 mg Documented by: [id number] Admin: 03/30/21 08:45 Dose: 81 mg Documented by: [id number] Atorvastatin Calcium (Atorvastatin 40 Mg Tab) 80 mg PO HS [facility] Stop: 04/29/21 20:59 Last Admin: 03/30/21 08:48 Dose: 80 mg Documented by: [id number] Enoxaparin Sodium (Enoxaparin Inj 40 Mg/0.4 Ml Syr) 40 mg SQ QAM [facility] Stop: 04/29/21 08:59 Last Admin: 03/31/21 08:26 Dose: 40 mg Documented by: [id number] Admin: 03/30/21 08:45 Dose: 40 mg Documented by: [id number] Famotidine (Famotidine 20 Mg Tab) 20 mg PO QAM [facility] Stop: 04/29/21 08:59 Last Admin: 03/31/21 08:27 Dose: 20 mg Documented by: [id number] Admin: 03/30/21 08:45 Dose: 20 mg Documented by: [id number] Fluticasone/Vilanterol (Fluticasone/Vilanterol 200/25mcg 14 Puffs/Inhaler) 1 puffs INH DAILY JOHANA Stop: 04/29/21 08:59 Last Admin: 03/31/21 08:27 Dose: 1 puffs Documented by: [id number] Admin: 03/30/21 08:48 Dose: 1 puffs Documented by: [id number] Promethazine HCl 12.5 mg/ (Sodium Chloride) 50.5 mls @ 202 mls/hr IV Q6H PRN PRN Reason: Nausea And Vomiting Stop: 04/28/21 21:00 Last Infusion: 03/30/21 21:00 Dose: 0 mls/hr Documented by: [id number] Admin: 03/30/21 20:36 Dose: 202 mls/hr Documented by: [id number] Infusion: 03/30/21 10:18 Dose: 0 mls/hr Documented by: [id number] Admin: 03/30/21 10:03 Dose: 202 mls/hr Documented by: [id number] Infusion: 03/29/21 21:50 Dose: 0 mls/hr Documented by: [id number] Admin: 03/29/21 21:22 Dose: 202 mls/hr Documented by: [id number] Piperacillin Sod/Tazobactam (Sod 3.375 gm/ Dextrose) 115 mls @ 28.75 mls/hr IV Q8H [facility]; Protocol Stop: 04/01/21 15:59 Last Admin: 03/31/21 08:28 Dose: 28.8 mls/hr Documented by: [id number] Infusion: 03/31/21 04:15 Dose: 0 mls/hr Documented by: [id number] Admin: 03/31/21 00:12 Dose: 28.8 mls/hr Documented by: [id number] Infusion: 03/30/21 21:15 Dose: 0 mls/hr Documented by: [id number] Admin: 03/30/21 17:15 Dose: 28.8 mls/hr Documented by: [id number] Lactobacillus Acidoph/Casei/Rhamnos (Advanced Probiotic 1250 Mg Capsule) 2 cap PO [facility] Stop: 04/29/21 08:59 Last Admin: 03/31/21 08:27 Dose: 2 cap Documented by: [id number] Admin: 03/30/21 08:44 Dose: 2 cap Documented by: [id number] Levothyroxine Sodium (Levothyroxine Sodium 137 Mcg Tablet) 137 mcg PO [email or web address]@[address] [place] [address] Stop: 04/30/21 06:29 Last Admin: 03/31/21 06:00 Dose: 137 mcg Documented by: [id number] Levothyroxine Sodium (Levothyroxine Sodium 150 Mcg Tablet) 150 mcg PO [email or web address] [facility] Stop: 04/29/21 06:29 Last Admin: 03/30/21 05:56 Dose: 150 mcg Documented by: [id number] Losartan Potassium (Losartan Potassium 50 Mg Tab) 100 mg PO [facility] Stop: 04/29/21 08:59 Last Admin: 03/31/21 08:27 Dose: 100 mg Documented by: [id number] Admin: 03/30/21 08:44 Dose: 100 mg Documented by: [id number] Morphine Sulfate (Morphine Sulfate 4 Mg/Ml 1 Ml Carp\Vial) 4 mg IV Q4H PRN PRN Reason: Pain Stop: 04/12/21 21:00 Last Admin: 03/30/21 20:42 Dose: 4 mg Documented by: [id number] Admin: 03/30/21 03:00 Dose: 4 mg Documented by: [id number] Admin: 03/29/21 21:22 Dose: 4 mg Documented by: [id number] Pantoprazole Sodium (Pantoprazole 40 Mg Tab) 40 mg PO [facility] Stop: 04/30/21 09:29 Last Admin: 03/31/21 10:54 Dose: 40 mg Documented by: [id number] Sertraline HCl (Sertraline Hcl 50 Mg Tablet) [address] [facility] Stop: 04/29/21 08:59 Last Admin: 03/31/21 08:27 Dose: 50 mg Documented by: [id number] Admin: 03/30/21 08:48 Dose: 50 mg Documented by: [id number] Tamsulosin HCl (Tamsulosin Hcl 0.4 Mg Cap) 0.4 mg PO [facility] Stop: 04/29/21 20:59 Last Admin: 03/30/21 21:56 Dose: 0.4 mg Documented by: [id number] Triamcinolone Acetonide (Triamcinolone Acet Nasal [place] 10.8ml Btl) 1 sprays NA BID [facility] Stop: 04/29/21 08:59 Last Admin: 03/31/21 08:28 Dose: 1 sprays Documented by: [id number] Admin: 03/30/21 21:58 Dose: 1 sprays Documented by: [id number] Admin: 03/30/21 10:04 Dose: 1 sprays Documented by: [id number] Verapamil HCl (Verapamil Hcl 180 Mg Tabcr) 180 mg PO [facility] Stop: 04/29/21 20:59 Last Admin: 03/30/21 21:56 Dose: 180 mg Documented by: [id number] Discontinued Medications Sodium Chloride (Nss 1000ml) 1,000 mls @ 999 mls/hr IV .Q1H1M STA Stop: 03/29/21 19:23 Last Infusion: 03/29/21 19:45 Dose: 0 mls/hr Documented by: [id number] Admin: 03/29/21 18:43 Dose: 999 mls/hr Documented by: [id number] Piperacillin Sod/Tazobactam Sod (Zosyn) 4.5 gm in 120 mls @ 240 mls/hr IV NOW ONE Stop: 03/29/21 21:01 Last Infusion: 03/29/21 22:33 Dose: 0 mls/hr Documented by: [id number] Admin: 03/29/21 21:22 Dose: 240 mls/hr Documented by: [id number] Potassium Chloride 40 meq/ (Lactated Ringer's) 1,020 mls @ 60 mls/hr IV .Q17H ONE Stop: 03/30/21 16:29 Last Infusion: 03/30/21 11:56 Dose: 0 mls/hr Documented by: [id number] Admin: 03/29/21 23:54 Dose: 60 mls/hr Documented by: [id number] Lactated Ringer's (Lr) 1,000 mls @ 80 mls/hr IV .[id number] JOHANA Stop: 04/29/21 10:44 Last Infusion: 03/31/21 10:57 Dose: 0 mls/hr Documented by: [id number] Admin: 03/31/21 08:28 Dose: 80 mls/hr Documented by: [id number] Infusion: 03/31/21 08:28 Dose: 80 mls/hr Documented by: [id number] Admin: 03/30/21 21:59 Dose: 80 mls/hr Documented by: [id number] Infusion: 03/30/21 21:59 Dose: 80 mls/hr Documented by: [id number] Admin: 03/30/21 11:55 Dose: 80 mls/hr Documented by: [id number] Piperacillin Sod/Tazobactam (Sod 4.5 gm/ Dextrose) 120 mls @ 200 mls/hr IV NOW ONE; Protocol Stop: 03/30/21 11:35 Last Infusion: 03/30/21 11:55 Dose: 0 mls/hr Documented by: [id number] Admin: 03/30/21 11:13 Dose: 200 mls/hr Documented by: [id number] Potassium Chloride (Potassium Chloride Crtab 20 Meq Tabcr) 40 meq PO NOW STA Stop: 03/29/21 20:46 Last Admin: 03/29/21 21:21 Dose: 40 meq Documented by: [id number] Promethazine HCl (Promethazine 12.5 Mg/50.5 Ml Nss) Confirm Administered Dose 12.5 mg IV .STK-MED ONE Stop: 03/29/21 21:18 Last Admin: 03/29/21 21:22 Dose: Not Given Documented by: [id number] Tamsulosin HCl (Tamsulosin Hcl 0.4 Mg Cap) 0.4 mg PO NOW ONE Stop: 03/29/21 21:56 Last Admin: 03/29/21 22:40 Dose: 0.4 mg Documented by: [id number] Verapamil HCl (Verapamil Hcl 180 Mg Tabcr) 180 mg PO NOW STA Stop: 03/29/21 20:46 Last Admin: 03/29/21 22:40 Dose: 180 mg Documented by: [id number] (1) Abdominal pain Abdominal location: upper abdomen, unspecified Qualified Code(s): R10.10 - Upper abdominal pain, unspecified
--- NOTE | 2021-03-31 14:01 | Discharge Summary ---
Date of Service March 31, 2021 Admission HPI Per Admitting Provider History obtained from patient and records. Medical history significant for CAD status post CABG/stent, hypertension, hyperlipidemia, history of PE status post anti-coagulation, asthma, BPH/prostate cancer status post radiation, MGUS, skin cancer, hypothyroidism, history of pancreatitis, past tobacco abuse Recent confinement January 2021 for post ERCP pancreatitis. 2 nights ago, patient noted achy left-sided abdominal pain somewhat reminiscent of pancreatitis pain. Admits to alcohol intake at home. Not excessive as per patient. Some chills at home. Low-grade fever. No chest pain, no S OB. Patient brought to the ER for evaluation by . IV Zosyn given at the ER. 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 Admission Exam Per Admitting Provider GENERAL: Slightly uncomfortable, pleasant, no respiratory distress SKIN: Normal color, warm HEENT: Partial alopecia, [place] palpebral conjunctivae, no ptosis, dry buccal mucosa NECK : Supple, no tenderness CHEST : CTA, no tenderness HEART : RRR, no obvious murmurs ABDOMEN: Some distention, minimal epigastric tenderness EXTREMITIES : No LE swelling/tenderness, no other conspicuous deformities noted NEUROLOGIC : Coherent, no facial asymmetry, no other gross focality Principal Diagnosis Abdominal Pain Nausea low potassium Discharge Data Allergies Allergy/AdvReac Type Severity Reaction Status Date / Time Beta-Blockers AdvReac Mild History Verified 03/29/21 19:25 (Beta-Adrenergic Bloc intolerance as per records codeine AdvReac Mild N/V Verified 03/29/21 19:25 Consultations 03/29/21 20:41 ED Decision to Admit Stat 03/29/21 22:52 Consult Gastroenterology Routine Ordered Studies Abdomen/Pelvis CT 03/29/21 18:[address] WITH IV CONTRAST CT DOSE: 557.23 mGy.cm HISTORY: lower pain and fever TECHNIQUE: Multiaxial CT images of the abdomen and pelvis were performed following the use of intravenous contrast. A dose lowering technique was utilized adhering to the principles of ALARA. COMPARISON STUDY: Abdomen and pelvis CT 01/31/2021. FINDINGS: There are poststernotomy changes. Trace right pleural effusion. A few bibasilar linear densities consistent with subsegmental atelectasis. No pneumoperitoneum. No pneumatosis. Stable small sclerotic foci within the left sacrum and left posterior iliac bone. Old, healed right lower rib fractures. Prior cholecystectomy. Moderate left intrahepatic bile duct dilatation, unchanged. There is a stable 1.5 cm cyst within the left hepatic lobe. Trace pne umobilia within the dilated left intrahepatic bile ducts. The main portal vein is patent. The spleen is unremarkable. Normal adrenal glands. Right renal parapelvic cyst remains unchanged. Subcentimeter left renal hypodense lesions are also stable. These are technically too small to characterize but favor cysts. No hydronephrosis. Mild bladder wall thickening. This is likely chronic. Multiple brachytherapy seeds again noted within the prostate gland. No pelvic lymphadenopathy. Lobular low density lesion located between the superior mesenteric vein and left renal vein best seen on image 126. This may represent an abnormally enlarged peripancreatic lymph node or complex pancreatic pseudocyst. This measures 4.2 x 2.0 cm. This is best seen on image 126. This is new compared the prior study. There is stable prominence of the main pancreatic duct and common bile duct. Bilateral perinephric edema, unchanged. Minimal peripancreatic inflammatory change at the uncinate process has almost completely resolved in the interval. The appendix is not identified and reportedly surgically absent. Stable mild asymmetric enlargement of the left seminal vesicle. Colonic diverticulosis. No evidence for acute diverticulitis. Moderate well-formed stool within the colon. No bowel wall thickening or obstruction. IMPRESSION: 1. No bowel wall thickening or obstruction. 2. Prior appendectomy. 3. No change in the mild dilatation of the main pancreatic duct and moderate left intrahepatic bile duct dilatation. 4. Cholecystectomy. 5. There is a lobular low-density lesion located between the superior mesenteric vein and left renal vein which measures 4.2 x 2.0 cm. There is new compared the prior study and demonstrates mild adjacent inflammatory change. Therefore, this could represent a pancreatic pseudocyst or enlarged lymph node. One-month pancreatic CT follow-up recommended to ensure resolution of this abnormality. 6. Minimal peripancreatic inflammatory change at the uncinate process has almost completely resolved in the interval. ACT 112: Positive. There are findings on this exam that require communication between the performing entity and the patient following Patient Test Result Information Act ([place] Act 112) guidelines. Electronically signed by: Jerry Yeager M.D. 03/29/2021 7:45 PM Chest X-Ray 03/29/21 20:32 XR chest 1V portable INDICATION: [place] ^fever. TECHNIQUE: Single frontal radiograph of the chest was obtained. Comparison: Comparison is made to chest one view 12/06/2020 FINDINGS: Mediastinal wires are stable. Calcified aortic knob is seen. The lungs are clear. No evidence of pleural effusion or pneumothorax. IMPRESSION: No acute abnormality and in particular no evidence of pneumonia. ACT 112: Negative or not required by law. Electronically signed by: Suraj Shane M.D. 03/30/2021 7:40 AM Cholangiopancreatography MRI 03/30/21 09:46 MRCP CLINICAL HISTORY: abd pain, nausea, fever rule out biliary stricutre TECHNIQUE: Utilizing a 1.5 [place] magnet and dedicated coil, multiplanar, multiecho imaging of the upper abdomen was performed utilizing heavily T2 weighted pulsing sequences without IV contrast. COMPARISON STUDY: December 07, 2020 FINDINGS: Limited evaluation of lower chest show trace bilateral pleural effusion which is unchanged since prior. Liver is normal in size and signal characteristics. Stable size of slightly T2 hyperintense lesion within left lobe of the liver which shows ill-defined borders on current exam (borders of this lesion was well-defined during prior exam). Above-mentioned changes could be due to motion artifact. No intrahepatic biliary dilatation demonstrated. Extrahepatic biliary duct remain dilated measuring 1.1 cm in diameter. Previ ously seen filling defect within common bile duct is no longer visualized to suggest choledocholithiasis. Gallbladder is surgically absent. Pancreatic duct is slightly prominent and and patent. No adjacent focal pancreatic lesions are seen. Spleen, adrenal glands are unremarkable. Pancreas is atrophic. No definite peripancreatic edema is seen. No evidence of hydronephrosis. Large peripelvic cyst is again seen within the right kidney. Visualized loops of bowel are nondilated. Visualized portion of abdominal aorta is normal in caliber. IMPRESSION: 1. Atrophic pancreas. No pancreatic lesions are seen. Mild diffuse prominence of pancreatic duct are demonstrated without focal lesions. 2. Interval cholecystectomy. 3. Dilated common bile duct without evidence of focal filling defect to suggest obstructive calculi. 4. Redemonstration of the right renal peripelvic cyst. 5. Stable fluid signal lesion within left lobe of the liver, likely representing cyst. ACT 112: Negative or not required by law. The above report was generated using voice recognition software. It may contain grammatical, syntax or spelling errors. Electronically signed by: Adriana Nuno DO 03/31/2021 8:47 AM Hospital Course (1) Abdominal pain: (2) Hyperbilirubinemia: (3) CAD (coronary artery disease): (4) Hypokalemia: (5) HTN (hypertension): (6) Hypothyroidism: This is a 80-year-old male who has significant past medical history of CAD with CABG x2 in 2019, HTN, HLD, asthma, hypothyroidism, history of PE, history of prostate cancer, BPH who presented ED secondary to acute abdominal pain. Of significance patient recently admitted 02/01 to 02/04/2021 secondary to post ERCP pancreatitis. Initial Lap Yajaira was performed on 12/09/20 due to acute cholecystitis with presenting cholangitis, transaminitis. He also underwent ERCP at that time with choledocholithiasis and underwent biliary sphincterotomy, plastic biliary stent was placed in left hepatic duct. He underwent ERCP/EUS on 01/30/[address] Heller for biliary stent removal, balloon sweep of bile duct stone secondary to retained sludge/stones. He presented on evening of 03/29 with abdominal pain, total bili 1.8 and elevated temp per records but not documented in [facility]. CT A/P: There is a lobular low-density lesion located between the superior mesenteric vein and left renal vein which measures 4.2 x 2.0 cm. This was new compared the prior study and demonstrates mild adjacent inflammatory change. Therefore, this could represent a pancreatic pseudocyst or enlarged lymph node. Gastroenterology was on board and MRCP was ordered. MRCP was negative for acute pathology and patient sx of abdominal pain and nausea had resolved. During hospitalization he was initially treated with IV Zosyn due to reported fever and elevated bilirubin. His blood cultures showed NGTD at discharge. Antibiotics were discontinued on day of discharge as he was hemodynamically stable, afebrile and wbc WNL. It is recommend he start protonix 40mg once daily along with his currently prescribed famotidine. He has a scheduled follow up with GI as outpt on 04/09. Total Time Total Time Spent Total Time Spent (In Minutes): 60 minutes Discharge Plan Discharge Items Patient Disposition: Home - Self-Care Reason For Visit: ABD PAIN Discharge Diagnosis: Abdominal Pain Condition on Discharge: Good Activity: Resume your previous activity Non-emergency contact: Primary Care Provider Call non-emergency contact if: you have any medication questions, your symptoms worsen, your pain is not controlled, your pain is worsening, your pain is unusual for you, you have a fever and your temperature is above 101 Follow-up/Referrals: Donn Clarke MD [Primary Care Provider] - 04/06/21 11:00 am (Date & Time 04/06/2021 11:00 AM Provider Kacie Santana MD Department General Internal Medicine [facility] ) Robyn Heller DO [Physician] - 04/09/21 11:00 am (Date & Time 04/09/2021 11:00 AM Provider Robyn Heller DO Department Gastroenterology, [facility] ) Diet: Regular Diet Comment: as tolerated, avoid eating 4 hours prior to eating Addtl Attending Provider Instructions: MEDICATION CHANGES: You were started on protonix 40mg daily once daily to help with acid suppression of your stomach. Continue all other home medications. SUMMARY OF HOSPITAL STAY: You are admitted to the hospital secondary to abdominal pain. Initial CAT scan of abdomen was abnormal concerning for possible cyst of pancreas. You were seen and evaluated by Gastroenterology and MRI was obtained of your Abdomen. This was negative for any acute findings. Your nausea and abdominal pain has resolved and it was felt you were stable to be discharged home. It was recommending you start protonix 40mg daily to help suppress acid in your stomach. It is also recommended you keep your follow up appointment with gastroenterology. PENDING TEST RESULTS: None RECOMMENDATIONS FOR FOLLOW-UP: Advise Alcohol Cessation Keep all scheduled follow ups: Dr Clarke 04/06/21 @ 11:00; Dr. Heller 04/09/21 @ 1100 OTHER INSTRUCTIONS: Seek medical attention if you have: * temperature above 101 * chest pain or trouble breathing * abdominal pain, nausea, vomiting * diarrhea, dark stools or bloody stools * any unanswered questions or concerns Call 911 if symptoms are severe. Please take good care of yourself. It has been a pleasure taking care of you. Please take care of yourself. If you have any questions regarding your recent hospitalization please contact [facility] and request Arcelia Johnsonist @ [phone]. Gracie Melchor PA-C Pending Studies at Discharge: No Stand-Alone Forms: My [facility], Smoking Cessation Medications and DC Order Prescriptions: New pantoprazole 40 mg Tablet,Delayed Release (Dr/Ec) 40 mg PO QAM Qty: 30 RF: 0 Continued levothyroxine 137 mcg Tablet 137 mcg PO 4XWK RF: 0 tamsulosin [Flomax] 0.4 mg capsule 0.4 mg PO HS RF: 0 triamcinolone acetonide 55 mcg Aerosol,[place] 1 spray INTRANASAL BID RF: 0 levothyroxine [Synthroid] 150 mcg tablet 150 mcg PO 3XWK RF: 0 sertraline [Zoloft] 50 mg Tablet 50 mg PO QAM RF: 0 potassium chloride [Klor-Con M10] 10 mEq tablet,ER particles/crystals 10 meq PO UD RF: 0 guaifenesin [Mucinex] 600 mg Tablet Extended Release 12hr 600 mg PO Q12H RF: 0 ipratropium-albuterol 0.5 mg-3 mg(2.5 mg base)/3 mL solution for nebulization 3 ml INHALATION Q4H PRN (Reason: Shortness Of Breath Or Wheezing) RF: 0 albuterol sulfate 90 mcg/actuation Hfa Aerosol Inhaler 2 puff INHALATION Q6H PRN (Reason: Shortness Of Breath) RF: 0 acetaminophen 500 mg Capsule 500 mg PO Q4 MDD 3g PRN (Reason: Pain) RF: 0 fluticasone propion-salmeterol [Wixela Inhub] 250-50 mcg/dose Blister With Device 1 inh INHALATION BID RF: 0 meclizine 25 mg Tablet 25 mg PO Q6 PRN (Reason: Dizziness) RF: 0 Probiotic 1 cap PO QAM RF: 0 verapamil 180 mg tablet extended release 180 mg PO HS RF: 0 famotidine [Pepcid] 20 mg tablet 20 mg PO BID RF: 0 hydrochlorothiazide 12.5 mg capsule 12.5 mg PO QAM RF: 0 losartan 100 mg tablet 100 mg PO QAM RF: 0 atorvastatin 80 mg Tablet 80 mg PO HS RF: 0 cholecalciferol (vitamin D3) [Vitamin D3] 25 mcg (1,000 unit) Tablet 25 mcg PO QAM RF: 0 aspirin 81 mg Tablet,Delayed Release (Dr/Ec) 81 mg PO BID RF: 0 Discharge Orders: Discharge Order (Routine); Ordered 03/31/21 Ordered By: Gracie Eli Admission Data Admit Date/Time: 03/30/21 13:22 Attending Provider: Charlie Urban Admit Provider: Haja Humphrey Primary Care Provider: Donn Clarke Other Providers: Haja Humphrey ; Ravinder Corrigan ; Gracie Eli Other Interventions: Discharge Summary Assessment (RN) Last Done: 03/31/21 14:22 Supervising Physician Co-Signing Physician Notes Patient is seen and examined at bedside. States abdominal pain resolved. Denies nausea, vomiting. Tolerated diet. On exam patient is moderately built and nourished, no apparent distress, normocephalic atraumatic, EOMI, normal breath sounds, clear to auscultation, no accessory muscle use, S1-S2, no murmur, no pedal edema, abdomen soft, mildly distended, nontender, normal bowel sounds, no guarding or rigidity, alert, awake, oriented, grossly no focal deficits. Abdominal pain Minimally pancreatic inflammatory change in the uncinate process ? Pseudocyst or generalized abdominal MRCP showed no pathology Tolerated diet Appreciate GI input Started on PPI Advised to follow-up with GI as outpatient if recurrence of symptoms. I personally reviewed the record. Patient is interviewed and examined at bedside. Patient's care is coordinated with Gracie Melchor PA-C. Please refer to the documentation above for details of patient's presentation and for discussion of other issues.
== END 2021-03-31 15:54 | disposition home or self-care (01) | DRG 392 ==
LOC: 3N 18:16 → ED 18:16 → 3N 22:30

== ENCOUNTER 2022-05-26 18:57 | Observation (INO) ==
[2022-05-26 19:25] LABS: Basophils # (auto) 0.06 K/uL (0-0.2); Basophils % (auto) 0.7 %; Eosinophils # (auto) 0.24 K/uL (0-0.50); Hematocrit (blood only) 43.7 % (40.1-51.0); Hemoglobin 15.2 g/dl (14.0-18.0); Immature Granulocytes # (auto) 0.13 K/uL (0.00-0.02); Immature Granulocytes % (auto) 1.6 %; Lymphocytes # (auto) 1.81 K/uL (1.2-3.4); Lymphocytes % (auto) 22.6 %; Mean Corpuscular Hemoglobin 31.5 pg (25.0-34.0); Mean Corpuscular Hgb Conc 34.8 g/dL (32.0-36.0); Mean Corpuscular Volume 90.7 fL (80.0-100.0); Mean Platelet Volume 10.6 fL (9.4-12.4); Monocytes # (auto) 0.78 K/uL (0.24-0.82); Monocytes % (auto) 9.7 %; Neutrophils # (auto) 4.99 K/uL (1.4-6.5); Neutrophils % (auto) 62.4 %; Platelet Count 182 K/uL (130-400); RDW Coefficient of Variation 14.3 % (11.5-14.5); RDW Standard Deviation 47.5 fL (36.4-46.3); Red Blood Count 4.82 M/uL (4.63-6.08); White Blood Count 8.01 K/ul (4.8-10.8)
[2022-05-26 19:45] LABS: Partial Thromboplastin Time 27.7 Seconds (21.0-31.0); Prothrombin Time 11.1 Seconds (9.0-12.0)
[2022-05-26 19:52] LABS: Albumin Globulin Ratio 1.7 (0.9-2); Albumin Level 4.1 gm/dl (3.4-5.0); BUN Creatinine Ratio 24.8 (10-20); Bilirubin,Total 0.9 mg/dl (0.2-1.0); Calcium 9.3 mg/dl (8.5-10.1); Creatinine Clr Calc Pharmacy 64.7 ml/min; Est GFR (African American) 81.6 ml/min; Est GFR (Non-African American) 70.4 ml/min; Globulin 2.4 gm/dl (2.5-4.0); Magnesium 2.1 mg/dl (1.7-2.4); Potassium 3.7 mmol/L (3.5-5.1); Total Protein 6.5 gm/dl (6.0-8.3); Troponin I High Sensitivity 8.7 pg/ml (0-20)
--- NOTE | 2022-05-26 20:19 | XRay Report ---
XR chest 1V portable CLINICAL HISTORY: Shortness of breath. COMPARISON STUDY: Chest radiograph March 29, [address] October 31, 2018. FINDINGS: Surgical anchors within the right humeral head are incidentally noted. Lung volumes are nor mal. Lungs are clear. There is no pneumothorax or pleural effusion. Median sternotomy wires and media stinal surgical clips are present. Cardiac size is stable. Mediastinal contours are normal. There is no evidence for pulmonary edema. IMPRESSION: No acute cardiopulmonary findings. ACT 112: Negative or not required by law. Electronically signed by: Darin Naylor M.D. 05/26/2022 8:18 PM
[2022-05-26] MEDS ORDERED: NITROGLYCERIN 2% OINTMENT 30GM TUBE EXT STA (20:47)
[2022-05-26] MEDS ORDERED: ASPIRIN 81 MG ECTAB PO STA (20:49)
[2022-05-26] MEDS ORDERED: OPTIRAY 320 500ml IV ONE (21:19)
--- NOTE | 2022-05-26 22:16 | Emergency Department Note ---
Impression & Plan SOB (shortness of breath), Retrosternal chest pain ED Provider Note INFORMANT: Patient and family ED PROVIDER(S): Tr Little MD CHIEF COMPLAINT: Shortness of breath PLAN: Disposition: Admitted Condition: Good Outpatient prescription management: none Referral: None MEDICAL DECISION MAKING: Patient presented because of shortness of breath. A work-up was initiated. His ECG showed a normal sinus rhythm with poor R progression. His CBC, chemistry panel, BMP, troponin and LFTs were negative. COVID testing negative. The patient was given aspirin and Nitropaste. CT imaging was ordered. I discussed further management in the hospital given his complicated history. Patient and family were in agreement. Consultation was made with [facility] hospitalist. Patient was evaluated in the ER for further management. CT imaging of the chest pending at the time of admission. Triage Nursing notes reviewed and agree them. Vital Signs: reviewed and remarkable for hypertension Differential diagnosis: Reactive airway disease, pneumonia, pneumothorax, COPD, CHF, infections, cardiac ischemia, pulmonary embolism, musculoskeletal, gastrointestinal, as well as other pathologies. Diagnostics interpreted by me: EC-lead ECG rhythm normal sinus and rhythm at 68 bpm. Poor R wave progression. No ST elevation or depression. Cardiac Monitoring: Cardiac monitoring ordered by me: The patient was placed on continuous cardiac monitoring and observed. It revealed a normal sinus rhythm at 66 beats per minute without ectopy or evidence of dysrhythmia. Imaging studies: Chest x-ray. Findings: A chest x-ray was performed and revealed no pneumothorax, effusion, infiltrate, pulmonary edema, free air under the diaphragm, or wide m ediastinum. Impression: No acute disease. CT PE study pending. HPI: The patient is a 81 year old male who presents to the Emergency Room with complaints of shortness of breath. This started over the last 2 weeks and is worsening. The patient also notes the following associated symptoms, retrosternal chest pressure and discomfort, lightheadedness. The patient has tried his nebulizers, prednisone, and inhaler unsuccessfully for relieving factors. Current pain is rated as 3/10. Patient contacted [facility] cardiology and was referred to the ER. Patient has a history of CAD. Pt denies LOC, headache, fevers, chills, diaphoresis, visual changes, neck pain, nausea, vomiting, abdominal pain, back pain, melena, hematochezia, urinary symptoms, numbness, weakness, lymphadenopathy, rash, or other complaints. ROS: See above HPI for pertinent positives & negatives. A total of 10 systems reviewed and were otherwise negative. PAST MEDICAL HISTORY:See Below , CAD, asthma PAST SURGICAL HISTORY:See Below, CABG FAMILY HISTORY:See Below SOCIAL HISTORY:See Below, retired HOME MEDICATIONS:See Below ALLERGIES:See Below VITALS:See Below PHYSICAL EXAMINATION: GENERAL: Awake, alert, uncomfortable-appearing, in no distress HENT: Normocephalic, atraumatic. Oropharynx unremarkable. EYES: Normal conjunctiva. Sclera non-icteric. NECK: Inspection normal. Non-tender. Supple. No nuchal rigidity. FROM. No masses. RESPIRATORY: Clear to auscultation. No wheezes. No rales. Normal respiratory effort. CARDIAC: Normal rate. Normal rhythm. No murmurs. No rubs. Extremities warm and well perfused. Pulses equal. No JVD. GI: Soft, non-distended. No tenderness to palpation. No rebound or guarding. No masses. RECTAL: Deferred. MUSCULOSKELETAL: Atraumatic. Chest examination reveals no tenderness. The back is symmetrical on inspection without obvious abnormality. There is no CVA tenderness to palpation. No joint edema. LOWER EXTREMITIES: Calves are equal size bilaterally and non-tender. No edema. No discoloration. NEURO: Normal sensorium. No sensory or motor deficits noted. SKIN: No rash or jaundice noted. Tr Little MD Past Med/Surg History Medical History Afib post-op CABG, no known recurrences per pt Asthma BPH (benign prostatic hyperplasia) CAD (coronary artery disease) CABG (2018) + stents (MARY to prox Lcx, MARY x2 to mid LAD- 2018) Clostridium difficile carrier COPD (chronic obstructive pulmonary disease) High serum chloride History of Graves' disease History of pulmonary embolism 2010, AC since discontinued Hypertension Hypothyroidism Leukocytosis Prostate cancer S/P seed implant Skin cancer Surgical History H/O rotator cuff surgery History of appendectomy History of basal cell carcinoma (BCC) excision History of cardiac cath CABG (2018) + stents (MARY to prox Lcx, MARY x2 to mid LAD- 2019) History of cholecystectomy Lap cholecystectomy, open repair of umbilical hernia (12/09/2020): Grade 2 view, MAC #3, ETT 7.5 at [facility] History of colonoscopy with polypectomy History of cystoscopy History of eye surgery History of hernia repair History of malignant melanoma of skin Back, eyelid History of thyroidectomy, total History of vasectomy Status post double vessel coronary artery bypass CABG (2019) Status post operation on nasal sinus 2003 Family History Father Cancer Prostate and bladder Mother Stroke Breast cancer Social History Smoking Status: Former smoker Age Quit Using Tobacco: 27; Second Hand Exposure: No; Hx Alcohol Use: Yes Alcohol type: beer and hard liquor Alcohol Intake Frequency Comment: 1-2 drinks per day Hx Substance Use: Yes Preferred Language: Macedonian Communication Ability: Effective Forms Builder Required: No Beliefs That Will Affect Care: None marital status: Current Living Situation: Spouse current occupational status: retired current occupation: Retired Feels Safe at Home: Yes Assistive Devices: None Allergies Allergies Allergy/AdvReac Type Severity Reaction Status Date / Time Beta-Blockers AdvReac Mild History Verified 03/29/21 19:25 (Beta-Adrenergic Bloc intolerance as per records codeine AdvReac Mild N/V Verified 03/29/21 19:25 Home Meds Home Medications Medication Instructions Recorded Confirmed levothyroxine 137 mcg tablet 137 mcg PO 4XWK 10/31/18 05/26/22 levothyroxine 150 mcg tablet 150 mcg PO 3XWK 10/31/18 05/26/22 (Synthroid) sertraline 50 mg tablet (Zoloft) 50 mg PO QAM 10/31/18 05/26/22 tamsulosin 0.4 mg capsule (Flomax) 0.4 mg PO HS 10/31/18 05/26/22 triamcinolone acetonide 55 mcg 1 spray intranasal BID PRN as 10/31/18 05/26/22 nasal spray aerosol directed albuterol sulfate 90 mcg/actuation 2 puff inhalation Q6H PRN 07/12/19 05/26/22 aerosol inhaler Shortness Of Breath fluticasone 250 mcg-salmeterol 50 1 inh inhalation AMHS 07/12/19 05/26/22 mcg/dose blistr powdr for inhalation (Wixela Inhub) atorvastatin 80 mg tablet 80 mg PO HS 12/06/20 05/26/22 cholecalciferol (vitamin D3) 25 25 mcg PO QAM 12/06/20 05/26/22 mcg (1,000 unit) tablet (Vitamin D3) famotidine 20 mg tablet (Pepcid) 20 mg PO BID 12/06/20 05/26/22 hydrochlorothiazide 12.5 mg capsule 12.5 mg PO QAM 12/06/20 05/26/22 losartan 100 mg tablet 50 mg PO QAM 12/06/20 05/26/22 verapamil 180 mg tablet,extended 180 mg PO HS 12/06/20 05/26/22 release aspirin 81 mg tablet,delayed 81 mg PO DAILY 01/13/21 05/26/22 release Lactobacillus acidophilus 10 10,000 mmu cells PO DAILY 05/26/22 05/26/22 billion cell capsule (Probiotic) cetirizine 10 mg capsule (Zyrtec) 10 mg PO DAILY 05/26/22 05/26/22 ezetimibe 10 mg tablet 10 mg PO QAM 05/26/22 05/26/22 ipratropium 0.5 mg-albuterol 3 mg 3 ml inhalation Q4 PRN Shortness 05/26/22 05/26/22 (2.5 mg base)/3 mL nebulization Of Breath Or Wheezing soln montelukast 10 mg tablet 10 mg PO HS 05/26/22 05/26/22 potassium chloride 10 mEq 10 meq PO UD 05/26/22 05/26/22 tablet,extended release(part/cryst) spironolactone 25 mg tablet 12.5 mg PO DAILY 05/26/22 05/26/22 Results & Data (ED) Vital Signs Vital Signs - 24 hr 05/26/22 19:00 05/26/22 19:04 05/26/22 20:23 Temperature 37.1 C Temperature Source Temporal Artery Scan Pulse Rate 75 Pulse Rate [Finger] 71 Respiratory Rate 20 16 Respiratory Effort / Characteristics Non-Labored Spontaneous Non-Labored Spontaneous Respiratory Depth Normal Blood Pressure 135/73 Blood Pressure [Right Arm] 168/79 H Blood Pressure Mean 93 Blood Pressure Mean [Right Arm] 108 Pulse Oximetry 97 97 Oxygen Delivery Method Room Air Sepsis New/Unexplained Change in Mental Status N/A Sepsis Action Taken by Nursing No Action Required 05/26/22 21:47 05/26/22 20:32 05/26/22 20:32 Temperature Temperature Source Pulse Rate Pulse Rate [Finger] 66 Respiratory Rate 16 Respiratory Effort / Characteristics Non-Labored Spontaneous Respiratory Depth Blood Pressure Blood Pressure [Right Arm] 154/82 H Blood Pressure Mean Blood Pressure Mean [Right Arm] 106 Pulse Oximetry 97 97 Oxygen Delivery Method Room Air Room Air Sepsis New/Unexplained Change in Mental Status Sepsis Action Taken by Nursing 05/26/22 20:32 Temperature Temperature Source Pulse Rate Pulse Rate [Finger] Respiratory Rate Respiratory Effort / Characteristics Respiratory Depth Blood Pressure Blood Pressure [Right Arm] Blood Pressure Mean Blood Pressure Mean [Right Arm] Pulse Oximetry 98 Oxygen Delivery Method Room Air Sepsis New/Unexplained Change in Mental Status Sepsis Action Taken by Nursing Laboratory Data Result diagrams: 05/26/22 19:15 05/26/22 19:15 Lab Results 05/26/22 05/26/22 05/26/22 Range/Units 19:15 19:15 19:15 WBC 8.01 (4.8-10.8) K/ul RBC 4.82 (4.63-6.08) M/uL Hgb 15.2 (14.0-18.0) g/dl Hct 43.7 (40.1-51.0) % MCV 90.7 (80.0-100.0) fL MCH 31.5 (25.0-34.0) pg MCHC 34.8 (32.0-36.0) g/dL RDW Std Deviation 47.5 H (36.4-46.3) fL RDW Coeff of Valentino 14.3 (11.5-14.5) % Plt Count 182 (130-400) K/uL MPV 10.6 (9.4-12.4) fL Immature Gran % (Auto) 1.6 % Neut % (Auto) 62.4 % Lymph % (Auto) 22.6 % Piatt % (Auto) 9.7 % Eos % (Auto) 3.0 % Baso % (Auto) 0.7 % Neut # (Auto) 4.99 (1.4-6.5) K/uL Lymph # (Auto) 1.81 (1.2-3.4) K/uL Piatt # (Auto) 0.78 (0.24-0.82) K/uL Eos # (Auto) 0.24 (0-0.50) K/uL Baso # (Auto) 0.06 (0-0.2) K/uL Immature Gran # (Auto) 0.13 H (0.00-0.02) K/uL PT 11.1 (9.0-12.0) Seconds INR 1.0 (0.9-1.1) APTT 27.7 (21.0-31.0) Seconds PTT Ratio 1.0 Sodium 138 (136-145) mmol/L Potassium 3.7 (3.5-5.1) mmol/L Chloride 107 (98-107) mmol/L Carbon Dioxide 23 (21-32) mmol/L Anion Gap 8 (3-11) BUN 25 H (6-23) mg/dl Creatinine 1.01 (0.6-1.4) mg/dl Est Cr Clr Drug Dosing 64.7 ml/min Est GFR ( Amer) 81.6 ml/min Est GFR (Non-Af Amer) 70.4 ml/min BUN/Creatinine Ratio 24.8 H (10-20) Glucose 78 (70-99(Fasting)) mg/dl Calcium 9.3 (8.5-10.1) mg/dl Magnesium 2.1 (1.7-2.4) mg/dl Total Bilirubin 0.9 (0.2-1.0) mg/dl AST 16 (13-39) U/L ALT 24 (7-52) U/L Alkaline Phosphatase 70 (34-104) U/L Troponin I High Sens 8.7 (0-20) pg/ml B-Natriuretic Peptide (0-100) pg/ml Total Protein 6.5 (6.0-8.3) gm/dl Albumin 4.1 (3.4-5.0) gm/dl Globulin 2.4 L (2.5-4.0) gm/dl Albumin/Globulin Ratio 1.7 (0.9-2) SARS-CoV-2, RNA, NAAT (NEGATIVE) 05/26/22 05/26/22 Range/Units 20:50 20:50 WBC (4.8-10.8) K/ul RBC (4.63-6.08) M/uL Hgb (14.0-18.0) g/dl Hct (40.1-51.0) % MCV (80.0-100.0) fL MCH (25.0-34.0) pg MCHC (32.0-36.0) g/dL RDW Std Deviation (36.4-46.3) fL RDW Coeff of Valentino (11.5-14.5) % Plt Count (130-400) K/uL MPV (9.4-12.4) fL Immature Gran % (Auto) % Neut % (Auto) % Lymph % (Auto) % Piatt % (Auto) % Eos % (Auto) % Baso % (Auto) % Neut # (Auto) (1.4-6.5) K/uL Lymph # (Auto) (1.2-3.4) K/uL Piatt # (Auto) (0.24-0.82) K/uL Eos # (Auto) (0-0.50) K/uL Baso # (Auto) (0-0.2) K/uL Immature Gran # (Auto) (0.00-0.02) K/uL PT (9.0-12.0) Seconds INR (0.9-1.1) APTT (21.0-31.0) Seconds PTT Ratio Sodium (136-145) mmol/L Potassium (3.5-5.1) mmol/L Chloride (98-107) mmol/L Carbon Dioxide (21-32) mmol/L Anion Gap (3-11) BUN (6-23) mg/dl Creatinine (0.6-1.4) mg/dl Est Cr Clr Drug Dosing ml/min Est GFR ( Amer) ml/min Est GFR (Non-Af Amer) ml/min BUN/Creatinine Ratio (10-20) Glucose (70-99(Fasting)) mg/dl Calcium (8.5-10.1) mg/dl Magnesium (1.7-2.4) mg/dl Total Bilirubin (0.2-1.0) mg/dl AST (13-39) U/L ALT (7-52) U/L Alkaline Phosphatase (34-104) U/L Troponin I High Sens (0-20) pg/ml B-Natriuretic Peptide 31 (0-100) pg/ml Total Protein (6.0-8.3) gm/dl Albumin (3.4-5.0) gm/dl Globulin (2.5-4.0) gm/dl Albumin/Globulin Ratio (0.9-2) SARS-CoV-2, RNA, NAAT NEGATIVE (NEGATIVE) Administered Medications Discontinued Medications Aspirin (Aspirin 81 Mg Ectab) 243 mg PO NOW STA Stop: 05/26/22 20:50 Last Admin: 05/26/22 21:20 Dose: 243 mg Documented By: JUVENAL Ioversol (Optiray 320 500ml) 109 ml IV ONCE ONE Stop: 05/26/22 21:20 Last Admin: 05/26/22 21:19 Dose: 109 ml Documented By: EDK Nitroglycerin (Nitroglycerin 2% Ointment 30gm Tube) 0.5 inch EXT NOW STA Stop: 05/26/22 20:48 Last Admin: 05/26/22 21:19 Dose: 0.5 inch Documented By: JUVENAL Imaging Data Radiologist's Impression: Chest X-Ray 05/26/22 19:05 XR chest 1V portable CLINICAL HISTORY: Shortness of breath. COMPARISON STUDY: Chest radiograph March 29, [address] October 31, 2018. FINDINGS: Surgical anchors within the right humeral head are incidentally noted. Lung volumes are normal. Lungs are clear. There is no pneumothorax or pleural effusion. Median sternotomy wires and mediastinal surgical clips are present. Cardiac size is stable. Mediastinal contours are normal. There is no evidence for pulmonary edema. IMPRESSION: No acute cardiopulmonary findings. ACT 112: Negative or not required by law. Electronically signed by: Darin Naylor M.D. 05/26/2022 8:18 PM Discharge Plan Visit Data Chief Complaint: Shortness of Breath/Dyspnea Stated Complaint: SOB,HARD TIME BREATHING,CHEST PAIN,COUGH ED Provider: Tr Little Discharge Problem: SOB (shortness of breath), Retrosternal chest pain Forms Stand Alone Forms: My [facility] [place] Prescriptions Prescriptions: No Action levothyroxine 137 mcg Tablet 137 mcg PO 4XWK Rx Instructions: TAKE TUES, THUR, SAT, SUN tamsulosin [Flomax] 0.4 mg capsule 0.4 mg PO HS triamcinolone acetonide 55 mcg Aerosol,[place] 1 spray INTRANASAL BID PRN (Reason: as directed) levothyroxine [Synthroid] 150 mcg tablet 150 mcg PO 3XWK Rx Instructions: TAKE ON MON, WED, FRI sertraline [Zoloft] 50 mg Tablet 50 mg PO QAM albuterol sulfate 90 mcg/actuation Hfa Aerosol Inhaler 2 puff INHALATION Q6H PRN (Reason: Shortness Of Breath) fluticasone propion-salmeterol [Wixela Inhub] 250-50 mcg/dose Blister With Device 1 inh INHALATION AMHS verapamil 180 mg tablet extended release 180 mg PO HS famotidine [Pepcid] 20 mg tablet 20 mg PO BID hydrochlorothiazide 12.5 mg capsule 12.5 mg PO QAM losartan 100 mg tablet 50 mg PO QAM Rx Instructions: 1/2 tablet dose atorvastatin 80 mg Tablet 80 mg PO HS cholecalciferol (vitamin D3) [Vitamin D3] 25 mcg (1,000 unit) Tablet 25 mcg PO QAM ipratropium-albuterol 0.5 mg-3 mg(2.5 mg base)/3 mL solution for nebulization 3 ml INHALATION Q4 PRN (Reason: Shortness Of Breath Or Wheezing) montelukast 10 mg tablet 10 mg PO HS spironolactone 25 mg tablet 12.5 mg PO DAILY ezetimibe 10 mg tablet 10 mg PO QAM potassium chloride 10 mEq tablet,ER particles/crystals 10 meq PO UD Zyrtec 10 mg Capsule 10 mg PO DAILY Probiotic 10 billion cell Capsule 10,000 mmu cells PO DAILY aspirin 81 mg Tablet,Delayed Release (Dr/Ec) 81 mg PO DAILY Referrals Referrals: Donn Clarke MD [Primary Care Provider] -
[2022-05-26] MEDS ORDERED: NITROGLYCERIN SL 0.4 MG/TAB TAB SL PRN (23:14)
[2022-05-26] MEDS ORDERED: POLYETHYLENE (MIRALAX) 17 GM PACK PO PRN (23:14)
[2022-05-26] MEDS ORDERED: ACETAMINOPHEN 325 MG TAB PO PRN (23:14)
[2022-05-26] MEDS ORDERED: TRIAMCINOLONE ACET NASAL SPRAY 10.8ML BTL PRN (23:14)
[2022-05-26] MEDS ORDERED: ALBUT/IPRATROP 3MG/0.5MG NEB 3 ML VIAL INH PRN (23:14)
[2022-05-26] MEDS ORDERED: ALBUTEROL HFA 8 GM INHALER INH PRN (23:14)
--- NOTE | 2022-05-27 02:48 | History and Physical Report ---
DATE OF ADMISSION: 05/26/2022. CHIEF COMPLAINT: Shortness of breath and chest discomfort. HISTORY OF PRESENT ILLNESS: This is a 81-year-old male with a past medical history significant for history of hyperlipidemia; postoperative hypothyroidism; history of asthma, moderate persistent; chronic rhinitis; hypertension; CAD, status post stent, status post CABG; hypertension. Postop after CABG, had AFib without reoccurrence as per epic notes, GERD, BPH, MUGS, depression, pulmonary embolism long time back, no longer on any anticoagulation, history of prostate cancer. Presents with ongoing shortness of breath and chest discomfort. The patient has been having shortness of breath going on for some time, followed with pulmonary. Last week, he had a pulmonary function test was given an inhaler for asthma. Initially, he was prescribed a tapering dose of prednisone, it has not helped much. Lately, he has also developed chest discomfort and he also feels like passing out and when this happens, he takes a whole day to recover. Called Cardiology office and was advised to come to the ER. He was placed on nitroglycerin paste and his chest discomfort has improved, saturating okay on room air. Chest x-ray looks okay. Initial lab work was okay. Resting comfortably. He is able to give the history. He says recently one time he woke up in the night gasping for breath. He could not lie flat. No swelling in the legs. No nausea or vomiting. No abdominal pain. Normal bowel and bladder movements. No blood in the stools or black stools. No hematuria, no burning micturitions. No fevers, sometimes feels chills. He has cough with yellowish and whitish phlegm. Appetite is okay. No recent significant weight gain or weight loss. No difficulty swallowing. Currently, no headache, no earache. He has runny nose from his sinusitis. No sore throat.Daughter is worried that in the past all the cardiac workup initially was ok and later patient had cardiac stents and cabg. ALLERGIES: BETA SHIRLENE, CODEINE. PAST MEDICAL HISTORY: As mentioned above. PAST SURGICAL HISTORY: CABG, cardiac catheterization plus stent placement, right shoulder arthroscopy, biopsy of the eyelid, cataract surgery, colonoscopy, cystoscopy, EGD with endoscopic ultrasound, ERCP for choledocholithiasis with stent placement, stent removed, thyroid removed, appendectomy, left Smart stapes piston ear implant, MRI safe, nasal sinus endoscopy, Mohs surgery, appendectomy stapedectomy, repair of arm tendon muscle, umbilical hernia repair, ultrasound transrectal biopsy, vasectomy. MEDICATIONS: The patient is on albuterol 2 puffs inhalation q. 6 hours p.r.n., aspirin 81 mg p.o. daily, atorvastatin 80 mg p.o. at bedtime, Zyrtec 10 mg p.o. daily, vitamin D 25 mcg p.o. daily, ezetimibe 10 mg p.o. a.m., Pepcid 20 mg p.o. b.i.d., Wixela 1 inhalation b.i.d., hydrochlorothiazide 12.5 mg p.o. a.m., albuterol DuoNebs q. 4 hours p.r.n., lactobacillus p.o. daily, levothyroxine 150 mcg 3 times a week and 137 mcg 4 times a week, losartan 50 mg p.o. daily, montelukast 10 mg p.o. at bedtime, Zoloft 50 mg p.o. a.m., spironolactone 12.5 mg p.o. daily, Flomax 0.4 mg p.o. at bedtime, triamcinolone one spray intranasal b.i.d. p.r.n., verapamil 180 mg p.o. at bedtime. FAMILY HISTORY: Significant for father had prostate and bladder cancer and pulmonary embolism; mother has cancer and stroke. SOCIAL HISTORY: . Quit smoking in 1970. Had smoked 1 pack a day for 25 years. Alcohol, 6 standard drinks of alcohol per week. No drug use. REVIEW OF SYSTEMS: As per HPI. Rest of the review of systems is negative. PHYSICAL EXAMINATION: GENERAL: The patient is of moderate build, not in acute distress. VITAL SIGNS: Temperature 37.1, pulse 66, respiratory rate 16, blood pressure 154/82, oxygen 97% on room air. HEENT: Pupils equal, round and reactive to light. Oral mucosa moist. NECK: No JVD, no neck masses. CARDIOVASCULAR: S1 and S2 heard. Regular rate and rhythm. No murmur, no gallop. RESPIRATORY SYSTEM: Normal AP diameter. No accessory muscle use. No wheezing, no crackles. ABDOMEN: Soft, bowel sounds present, nontender. Mild left upper quadrant discomfort, no guarding, no rigidity, no distention. CENTRAL NERVOUS SYSTEM: Cranial nerves II-XII grossly intact, nonfocal. EXTREMITIES: No edema, no erythema. LABORATORY DATA: WBC 8, hemoglobin 15.2, hematocrit 43.7, platelets 182. PT 11.1, INR 1, APTT 27.7. Sodium 138, potassium 3.7, chloride 107, bicarbonate 23, BUN 25, creatinine 1.01, serum glucose 78, calcium 9.3, magnesium 2.1, total bilirubin 0.9, AST 16, ALT 24, alkaline phosphatase 70. Troponin I high sensitivity 8.7. BNP 31. SARS-CoV-2 rapid test negative. IMAGING DATA: Chest x-ray, no acute cardiopulmonary findings. EKG: Normal sinus rhythm at a rate of 68, no significant change was found. IMAGING DATA: CTA chest, no PE, no definite lobar pneumonia, questionable nodular densities in the inferior medial left lower lobe, possible infectious, inflammatory, mild emphysematous changes. No other pleural effusion or pneumothorax. No fractures identified. ASSESSMENT AND PLAN: This is a 81-year-old male, who presents with ongoing shortness of breath, chest discomfort, and cough. 1. Shortness of breath, chest discomfort, cough: Follows with Pulmonary. Started on an inhaler and was given tapering steroid dose, but it is not improved. The patient's family states in the past, intial workup for cardiac came back negative and finally had a CABG and cardiac stent. They are worried symptoms could be related to his cardiac. Will keep him n.p.o. Cardiology consult. Follow serial enzymes, echo, final report of CTA chest. 2, History of pulmonary embolism, on CTA chest, preliminary report no PE,. There is no lobar pneumonia on the CAT scan preliminary report, but there is question of nonspecific infectious or inflammatory changes in the left lower lobe. The patient currently is afebrile and no white count. We will follow the final report of the CAT scan. Closely monitor in the tele floor. 3. History of coronary artery disease, status post CABG, status post cardiac stent. Continue his home medications of aspirin and statin. Looks like the patient is intolerant to beta blockers, will monitor. 4. History of hypertension: Continue his verapamil, losartan, spironolactone, hydrochlorothiazide. Will monitor his blood pressure. 5. Hyperlipidemia: Continue his statin, ezetimibe. 6. History of asthma: Continue his home inhalers. 7. Gastroesophageal reflux disease: On Pepcid. 8. Benign prostatic hyperplasia: On Flomax. 9. Deep venous thrombosis prophylaxis: Sequential compression devices for now. DISPOSITION: Closely monitor in the tele floor. Level 1 full code. Expect to discharge home and follow with family doctor. Job ID: [id number] [facility]
[2022-05-27 05:47] LABS: Basophils # (auto) 0.05 K/uL (0-0.2); Basophils % (auto) 0.7 %; Eosinophils # (auto) 0.28 K/uL (0-0.50); Hematocrit (blood only) 40.2 % (40.1-51.0); Hemoglobin 13.8 g/dl (14.0-18.0); Immature Granulocytes # (auto) 0.12 K/uL (0.00-0.02); Immature Granulocytes % (auto) 1.7 %; Lymphocytes # (auto) 1.53 K/uL (1.2-3.4); Lymphocytes % (auto) 22.1 %; Mean Corpuscular Hemoglobin 31.1 pg (25.0-34.0); Mean Corpuscular Hgb Conc 34.3 g/dL (32.0-36.0); Mean Corpuscular Volume 90.5 fL (80.0-100.0); Mean Platelet Volume 10.6 fL (9.4-12.4); Monocytes % (auto) 10.1 %; Neutrophils # (auto) 4.24 K/uL (1.4-6.5); Neutrophils % (auto) 61.4 %; Platelet Count 151 K/uL (130-400); RDW Coefficient of Variation 14.4 % (11.5-14.5); RDW Standard Deviation 47.9 fL (36.4-46.3); Red Blood Count 4.44 M/uL (4.63-6.08); White Blood Count 6.92 K/ul (4.8-10.8)
[2022-05-27] MEDS ORDERED: LEVOTHYROXINE SODIUM 137 MCG TABLET PO SCH (06:30)
[2022-05-27 06:37] LABS: Calcium 8.8 mg/dl (8.5-10.1); Creatinine Clr Calc Pharmacy 65.2 ml/min; Est GFR (African American) 82.6 ml/min; Est GFR (Non-African American) 71.3 ml/min; Potassium 3.6 mmol/L (3.5-5.1)
--- NOTE | 2022-05-27 07:29 | CT Scan Report ---
CT ANGIOGRAM OF THE CHEST CLINICAL HISTORY: Dyspnea. COMPARISON STUDY: Chest x-ray dated 05/26/2022. Chest CT scans dated 10/31/2018 and 03/25/2015. TECHNIQUE: Following the IV administration of 109 cc of Optiray 320, CT angiogram of the chest was pe rformed from the upper abdomen to the thoracic inlet utilizing the pulmonary embolus protocol. Images are reviewed in the axial, sagittal, and coronal planes. 3-D MIPS images are created and assessed. I V contrast was administered without complication. A dose lowering technique was utilized adhering to the principles of ALARA. CT DOSE: 411.58 mGy.cm FINDINGS: Thyroid: Atrophic. Thoracic aorta: There is atherosclerotic calcification of the thoracic aorta, which is normal in rian ariane and demonstrates standard 3-vessel arch anatomy. There is no evidence of dissection. The thoracic aorta is not well opacified. Pulmonary vasculature: The pulmonary trunk is normal in caliber. There are no filling defects identif ied in main, lobar, or segmental pulmonary branches to suggest pulmonary embolus. Heart: The patient is status post midline sternotomy. The heart is mildly enlarged and without perica rdial effusion. The coronary arteries are densely calcified. Lungs and pleural spaces: There is [id number] emphysema. No lobar consolidation or pleural effu tom is identified. Scarring/atelectasis is seen at both lung bases. The trachea and central airways are clear. Clustered nodules at the right lung base measure up to 7 mm. These are best seen on images #12, #33, and #36. Question a 7 mm groundglass nodule in the left lower lobe on image #59. A calcifi ed granuloma seen in the right middle lobe. Foci of mucous plugging are noted. Mediastinum: There is no mediastinal lymphadenopathy. Liss: Clear. Axillae: There is no axillary lymphadenopathy. Upper abdomen: Cholecystectomy clips are noted in the right upper quadrant. There is a small hiatal h ernia. A 1 cm cyst is incidentally noted in the left lobe of the liver. Skeletal structures: The skeletal structures are osteopenic. Spondylotic change is noted throughout t he thoracic spine. Arthritic change is seen in the shoulders. No lytic or blastic bony lesions are se en. IMPRESSION: 1. There is no evidence of pulmonary embolus in the main, lobar, or segmental pulmonary arteries. 2. Cardiomegaly and emphysema. 3. There is no airspace consolidation typical for pneumonia or pleural effusion. 4. There is a cluster of low suspicion subcentimeter pulmonary nodules at the left lung base, as well as a possible subcentimeter groundglass nodule in the left lower lobe. These were not clearly seen o n the 2015 examination and a 6 month follow-up chest CT is recommended for reassessment. 5. Additional findings as above. ACT 112: Positive. There are findings on this exam that require communication between the performing entity and the patient following Patient Test Result Information Act ([place] Act 112) guidelines. Electronically signed by: Vazquez Nieves M.D. 05/27/2022 7:28 AM
[2022-05-27] MEDS: LOSARTAN POTASSIUM 50 MG TAB PO SCH (07:31)
[2022-05-27] MEDS: SERTRALINE HCL 50 MG TABLET PO SCH (07:31)
[2022-05-27] MEDS: CETIRIZINE HCL 10 MG TABLET PO SCH (07:32)
[2022-05-27] MEDS: ADVANCED PROBIOTIC 1250 MG CAPSULE PO SCH (07:32)
[2022-05-27] MEDS: ASPIRIN 81 MG ECTAB PO SCH (07:32)
[2022-05-27] MEDS: hydroCHLOROthiazide 25 MG TAB PO SCH (07:32)
[2022-05-27] MEDS: EZETIMIBE 10 MG TABLET PO SCH (07:32)
[2022-05-27] MEDS: CHOLECALCIFEROL 1,000 UNITS 25 MCG TAB PO SCH (07:32)
[2022-05-27] MEDS: SPIRONOLACTONE 12.5 MG TAB PO SCH (07:32)
[2022-05-27] MEDS: FAMOTIDINE 20 MG TAB PO SCH ×2 (07:33→20:11)
[2022-05-27] MEDS: FLUTICASONE/VILANTEROL 200/25MCG 14 PUFFS/INHALER INH SCH (07:33)
--- NOTE | 2022-05-27 08:41 | Cardiology Consultation ---
Date of Consultation May 27, 2022 Assessment & Plan (1) SOB (shortness of breath): (2) Mild persistent asthma: (3) Retrosternal chest pain: (4) GERD (gastroesophageal reflux disease): (5) CAD (coronary artery disease): Plan The patient has a complex cardiac history as well as COPD. Although his symptoms are somewhat atypical for angina, he states that they are similar to what he had prior to his stents and then coronary artery bypass surgery which resolved his symptoms until the past 3 weeks. Therefore, I do not believe that we have any other option but to perform a repeat cardiac catheterization to exclude progression of his coronary artery disease and provide treatment if necessary. If the cardiac catheterization reveals that his bypass grafts are open and there is no progression of disease in his eklutna arteries then we can concentrate more on treating his underlying lung disease. I have explained the risk, benefit and intent to the cardiac catheterization to the patient and he is willing to proceed. He will be made n.p.o. after midnight and the plan will be to proceed with a cardiac catheterization in the morning tomorrow. In the meantime, it would not be unreasonable to have pulmonology see him while he is in the hospital. History of Present Illness Attending Physician: Everardo Morton MD History of Present Illness This is a 81-year-old male patient with a complex past medical history as outlined below. He has moderate COPD and has been treated as an outpatient by pulmonology. Recently, he has seen his 911 telecommunicator due to increasing shortness of breath with activity. He has had a change in his medications and and given a course of steroids. This is not improved his symptoms. He also has had some chest discomfort which is not necessarily related to activity but may be more related to a persistent cough since changing his medications. He has had an extensive cardiac history. When I asked the patient if his symptoms were similar to when he had his stents placed or before his coronary artery bypass surgery he states they are similar. Past 3 weeks he has not been able to do anything without becoming short of breath. At times he has been lightheaded with the shortness of breath and had to sit down. At that time he notes that his heart rate is higher. He has had no syncope or presyncope. He denies orthopnea or lower extremity edema. His presenting EKG showed no acute changes. Cardiac high-sensitivity troponins are currently negative. Past medical history: 1.ASCVD 1.Status post December 06, 2018 PCI to LAD with 2 MARY and PCI to circumflex with single MARY 2.Status post July 14, 2019 CABG x2, COATS to the LAD and a SVG to the OM. Postoperative CABG course complicated by postoperative anemia, atrial fibrillation (without observed reoccurrence), malpositioned Gonzalez, urinary retention, persistent bladder spasms, post-op delirum 3.Beta-araceli intolerance. 4.Stable, asymptomatic 5.Continue appropriate medical management 2.Moderate asthma/COPD, [place] pulmonary nodule. Followed by [facility] Pulmonary Medicine. 3.Hypertension. Uncontrolled. Non pharmacologic treatment of hypertension discussed. Patient to decrease sodium intake, decrease alcohol, and partake in aerobic activity. If blood pressure is elevated on follow-up would consider a trial of spironolactone with concurrent reduction in potassium chloride dosing prior to increasing HCTZ or adding another agent. 4.Dyslipidemia. Optimal LDL goal less than 70 mg/dL. LDL cholesterol 93 mg/dL on 01/13/2022 despite atorvastatin 80 mg/day. Options discussed. Recommend adding ezetimibe (Zetia) 10 mg/day. Check a fasting lipid panel with direct LDL, AST, and ALT in 3 to 4 months. 5.Mild bilateral internal carotid artery disease. Refer for bilateral carotid duplex. 6.History of remote pulmonary embolism 7.BPH 8.Prostate cancer 9.MGUS, followed by [facility] Hematology/Oncology 10.Hypothyroidism, thyroidectomy 11.GERD 12.Depression Allergies Allergy/AdvReac Type Severity Reaction Status Date / Time Beta-Blockers AdvReac Mild History Verified 03/29/21 19:25 (Beta-Adrenergic Bloc intolerance as per records codeine AdvReac Mild N/V Verified 03/29/21 19:25 Home Medications Medication Instructions Recorded Confirmed Type levothyroxine 137 mcg tablet 137 mcg PO 4XWK 10/31/18 05/26/22 History levothyroxine 150 mcg tablet 150 mcg PO 3XWK 10/31/18 05/26/22 History (Synthroid) sertraline 50 mg tablet (Zoloft) 50 mg PO QAM 10/31/18 05/26/22 History tamsulosin 0.4 mg capsule (Flomax) 0.4 mg PO HS 10/31/18 05/26/22 History triamcinolone acetonide 55 mcg 1 spray intranasal BID PRN as 10/31/18 05/26/22 History nasal spray aerosol directed albuterol sulfate 90 mcg/actuation 2 puff inhalation Q6H PRN 07/12/19 05/26/22 History aerosol inhaler Shortness Of Breath fluticasone 250 mcg-salmeterol 50 1 inh inhalation AMHS 07/12/19 05/26/22 History mcg/dose blistr powdr for inhalation (Wixela Inhub) atorvastatin 80 mg tablet 80 mg PO HS 12/06/20 05/26/22 History cholecalciferol (vitamin D3) 25 25 mcg PO QAM 12/06/20 05/26/22 History mcg (1,000 unit) tablet (Vitamin D3) famotidine 20 mg tablet (Pepcid) 20 mg PO BID 12/06/20 05/26/22 History hydrochlorothiazide 12.5 mg capsule 12.5 mg PO QAM 12/06/20 05/26/22 History losartan 100 mg tablet 50 mg PO QAM 12/06/20 05/26/22 History verapamil 180 mg tablet,extended 180 mg PO HS 12/06/20 05/26/22 History release aspirin 81 mg tablet,delayed 81 mg PO DAILY 01/13/21 05/26/22 History release Lactobacillus acidophilus 10 10,000 mmu cells PO DAILY 05/26/22 05/26/22 History billion cell capsule (Probiotic) cetirizine 10 mg capsule (Zyrtec) 10 mg PO DAILY 05/26/22 05/26/22 History ezetimibe 10 mg tablet 10 mg PO QAM 05/26/22 05/26/22 History ipratropium 0.5 mg-albuterol 3 mg 3 ml inhalation Q4 PRN Shortness 05/26/22 05/26/22 History (2.5 mg base)/3 mL nebulization Of Breath Or Wheezing soln montelukast 10 mg tablet 10 mg PO HS 05/26/22 05/26/22 History potassium chloride 10 mEq 10 meq PO UD 05/26/22 05/26/22 History tablet,extended release(part/cryst) spironolactone 25 mg tablet 12.5 mg PO DAILY 05/26/22 05/26/22 History azithromycin 250 mg tablet 500 mg PO QAM #6 tabs 05/28/22 Rx cefdinir 300 mg capsule 300 mg PO BID #11 caps 05/28/22 Rx sodium chloride 7 % for 4 ml NEB BIDR PRN congestion #120 05/28/22 Rx nebulization mL Patient History Medical History (Updated 05/28/22 @ 13:53 by Jose Lugo MD) Abdominal pain Abnormal CT scan, chest Afib post-op CABG, no known recurrences per pt Asthma BPH (benign prostatic hyperplasia) CAD (coronary artery disease) CABG (2018) + stents (MARY to prox Lcx, MARY x2 to mid LAD- 2018) Clostridium difficile carrier COPD (chronic obstructive pulmonary disease) High serum chloride History of Graves' disease History of pulmonary embolism 2010, AC since discontinued Hypertension Hypothyroidism Leukocytosis Mild persistent asthma Prostate cancer S/P seed implant Skin cancer Surgical History H/O rotator cuff surgery History of appendectomy History of basal cell carcinoma (BCC) excision History of cardiac cath CABG (2018) + stents (MARY to prox Lcx, MARY x2 to mid LAD- 2018) History of cholecystectomy Lap cholecystectomy, open repair of umbilical hernia (12/09/2020): Grade 2 view, MAC #3, ETT 7.5 at [facility] History of colonoscopy with polypectomy History of cystoscopy History of eye surgery History of hernia repair History of malignant melanoma of skin Back, eyelid History of thyroidectomy, total History of vasectomy Status post double vessel coronary artery bypass CABG (2018) Status post operation on nasal sinus 2002 Family History Father Cancer Prostate and bladder Mother Stroke Breast cancer Social History Smoking Status: Former smoker Age Quit Using Tobacco: 27; Second Hand Exposure: No; Hx Alcohol Use: Yes Alcohol type: hard liquor Alcohol Intake Frequency Comment: 1-2 drinks per day Hx Substance Use: No Preferred Language: Latvian Communication Ability: Effective Pasta Maker Required: No Beliefs That Will Affect Care: None marital status: Current Living Situation: Spouse current occupational status: retired current occupation: Retired Feels Safe at Home: Yes Assistive Devices: None Review of Systems Review of Systems: Review of Systems: See HPI for pertinent positives. All other 10 point review of systems are negative. Physical Exam Physical Exam: General: no acute distress and stated age Head: normocephalic, no masses, lesions, tenderness or abnormalities Eyes: conjunctiva are pink and non-injected, sclera clear Neck: supple, no adenopathy, no bruits, normal jugular venous pulse, no hepatojugular reflux Chest: normal shape and normal respiratory effort Lungs: clear to auscultation and percussion Cardiac Exam: - regular rate & rhythm, no murmurs gallops or rubs - normal S1, normal S2 Pulses: 2(+) throughout Abdomen: abdomen soft, non-tender, no abnormal masses and no hepatosplenomegaly Musculoskeletal: no gait disturbance, no joint inflammation, no deforming arthritis Extremities: no edema and no cyanosis Neuro: grossly normal exam Results & Data ([facility]) Vital Signs (Past 12 Hours) Vital Signs Temp Pulse Resp BP Pulse Ox O2 Del Method O2 Flow Rate 05/27/22 07:56 36.6 C 57 L 20 122/55 L 97 Nasal Cannula 2 05/27/22 07:28 Room Air, Nasal Cannula 2 05/27/22 03:24 36.3 C L 78 16 113/63 95 Room Air 05/26/22 23:19 36.6 C 68 18 183/81 H 98 Room Air 05/26/22 21:47 66 16 154/82 H 97 Laboratory Results Laboratory Results - last 24 hr 05/26/22 05/26/22 05/26/22 19:15 19:15 19:15 WBC 8.01 RBC 4.82 Hgb 15.2 Hct 43.7 MCV 90.7 MCH 31.5 MCHC 34.8 RDW Std Deviation 47.5 H RDW Coeff of Valentino 14.3 Plt Count 182 MPV 10.6 Immature Gran % (Auto) 1.6 Neut % (Auto) 62.4 Lymph % (Auto) 22.6 Phillips % (Auto) 9.7 Eos % (Auto) 3.0 Baso % (Auto) 0.7 Neut # (Auto) 4.99 Lymph # (Auto) 1.81 Phillips # (Auto) 0.78 Eos # (Auto) 0.24 Baso # (Auto) 0.06 Immature Gran # (Auto) 0.13 H PT 11.1 INR 1.0 APTT 27.7 PTT Ratio 1.0 Sodium 138 Potassium 3.7 Chloride 107 Carbon Dioxide 23 Anion Gap 8 BUN 25 H Creatinine 1.01 Est Cr Clr Drug Dosing 64.7 Est GFR ( Amer) 81.6 Est GFR (Non-Af Amer) 70.4 BUN/Creatinine Ratio 24.8 H Glucose 78 Calcium 9.3 Magnesium 2.1 Total Bilirubin 0.9 AST 16 ALT 24 Alkaline Phosphatase 70 Troponin I High Sens 8.7 B-Natriuretic Peptide Total Protein 6.5 Albumin 4.1 Globulin 2.4 L Albumin/Globulin Ratio 1.7 SARS-CoV-2, RNA, NAAT 05/26/22 05/26/22 05/27/22 20:50 20:50 05:26 WBC RBC Hgb Hct MCV MCH MCHC RDW Std Deviation RDW Coeff of Valentino Plt Count MPV Immature Gran % (Auto) Neut % (Auto) Lymph % (Auto) Phillips % (Auto) Eos % (Auto) Baso % (Auto) Neut # (Auto) Lymph # (Auto) Phillips # (Auto) Eos # (Auto) Baso # (Auto) Immature Gran # (Auto) PT INR APTT PTT Ratio Sodium Potassium Chloride Carbon Dioxide Anion Gap BUN Creatinine Est Cr Clr Drug Dosing Est GFR ( Amer) Est GFR (Non-Af Amer) BUN/Creatinine Ratio Glucose Calcium Magnesium Total Bilirubin AST ALT Alkaline Phosphatase Troponin I High Sens 9.3 B-Natriuretic Peptide 31 Total Protein Albumin Globulin Albumin/Globulin Ratio SARS-CoV-2, RNA, NAAT NEGATIVE 05/27/22 05/27/22 05:26 05:26 WBC 6.92 RBC 4.44 L Hgb 13.8 L Hct 40.2 MCV 90.5 MCH 31.1 MCHC 34.3 RDW Std Deviation 47.9 H RDW Coeff of Valentino 14.4 Plt Count 151 MPV 10.6 Immature Gran % (Auto) 1.7 Neut % (Auto) 61.4 Lymph % (Auto) 22.1 Phillips % (Auto) 10.1 Eos % (Auto) 4.0 Baso % (Auto) 0.7 Neut # (Auto) 4.24 Lymph # (Auto) 1.53 Phillips # (Auto) 0.70 Eos # (Auto) 0.28 Baso # (Auto) 0.05 Immature Gran # (Auto) 0.12 H PT INR APTT PTT Ratio Sodium 137 Potassium 3.6 Chloride 108 H Carbon Dioxide 22 Anion Gap 7 BUN 22 Creatinine 1.00 Est Cr Clr Drug Dosing 65.2 Est GFR ( Amer) 82.6 Est GFR (Non-Af Amer) 71.3 BUN/Creatinine Ratio 22.0 H Glucose 92 Calcium 8.8 Magnesium 2.0 Total Bilirubin AST ALT Alkaline Phosphatase Troponin I High Sens B-Natriuretic Peptide Total Protein Albumin Globulin Albumin/Globulin Ratio SARS-CoV-2, RNA, NAAT Medications Administered Current Inpatient Medications Acetaminophen (Acetaminophen 325 Mg Tab) 650 mg PO Q4H PRN PRN Reason: Pain or Fever Stop: 06/25/22 23:13 Albuterol (Albut/Ipratrop 3mg/0.5mg Neb 3 Ml Vial) 3 ml INH Q4 PRN; Protocol PRN Reason: Shortness Of Breath Or Wheezing Stop: 06/25/22 23:13 Albuterol (Albuterol Hfa 8 Gm Inhaler) 2 puffs INH Q6H PRN PRN Reason: Shortness Of Breath Stop: 06/25/22 23:13 Aspirin (Aspirin 81 Mg Ectab) 81 mg PO DAILY JOHANA Stop: 06/26/22 08:59 Last Admin: 05/27/22 07:32 Dose: 81 mg Atorvastatin Calcium (Atorvastatin 40 Mg Tab) 80 mg PO HS JOHANA Stop: 06/26/22 20:59 Cetirizine HCl (Cetirizine Hcl 10 Mg Tablet) 10 mg PO DAILY JOHANA Stop: 06/26/22 08:59 Last Admin: 05/27/22 07:32 Dose: 10 mg Ezetimibe (Ezetimibe 10 Mg Tablet) 10 mg PO QAM JOHANA Stop: 06/26/22 08:59 Last Admin: 05/27/22 07:32 Dose: 10 mg Famotidine (Famotidine 20 Mg Tab) 20 mg PO BID JOHANA Stop: 06/26/22 08:59 Last Admin: 05/27/22 07:33 Dose: 20 mg Fluticasone/Vilanterol (Fluticasone/Vilanterol 200/25mcg 14 Puffs/Inhaler) 1 puffs INH DAILY JOHANA Stop: 06/26/22 08:59 Last Admin: 05/27/22 07:33 Dose: 1 puffs Hydrochlorothiazide (Hydrochlorothiazide 25 Mg Tab) 12.5 mg PO QAM JOHANA Stop: 06/26/22 08:59 Last Admin: 05/27/22 07:32 Dose: 12.5 mg Lactobacillus Acidophilus (Advanced Probiotic 1250 Mg Capsule) 2 cap PO DAILY [facility] Stop: 06/26/22 08:59 Last Admin: 05/27/22 07:32 Dose: 2 cap Levothyroxine Sodium (Levothyroxine Sodium 137 Mcg Tablet) 137 mcg PO [email or web address] [facility] Stop: 06/26/22 06:29 Last Admin: 05/27/22 07:04 Dose: 137 mcg Levothyroxine Sodium (Levothyroxine Sodium 150 Mcg Tablet) 150 mcg PO [email or web address] [facility] Stop: 06/27/22 06:29 Losartan Potassium (Losartan Potassium 50 Mg Tab) 50 mg PO QAM [facility] Stop: 06/26/22 08:59 Last Admin: 05/27/22 07:31 Dose: 50 mg Montelukast Sodium (Montelukast Sodium 10 Mg Tablet) 10 mg PO [facility] Stop: 06/26/22 20:59 Nitroglycerin (Nitroglycerin Sl 0.4 Mg/Tab Tab) 0.4 mg SL UD PRN PRN Reason: Chest Pain Stop: 06/25/22 23:13 Polyethylene Glycol (Polyethylene (Miralax) 17 Gm Pack) 17 gm PO DAILY PRN PRN Reason: Constipation Stop: 06/25/22 23:13 Sertraline HCl (S[facility]raline Hcl 50 Mg Tablet) [facility] Stop: 06/26/22 08:59 Last Admin: 05/27/22 07:31 Dose: 50 mg Spironolactone (Spironolactone 12.5 Mg Tab) 12.5 mg PO DAILY [facility] Stop: 06/26/22 08:59 Last Admin: 05/27/22 07:32 Dose: 12.5 mg Tamsulosin HCl (Tamsulosin Hcl 0.4 Mg Cap) 0.4 mg PO HS [facility] Stop: 06/26/22 20:59 Triamcinolone Acetonide (Triamcinolone Acet Nasal [place] 10.8ml Btl) 1 sprays NA BID PRN PRN Reason: as directed Stop: 06/25/22 23:13 Verapamil HCl (Verapamil Hcl 180 Mg Tabcr) 180 mg PO HS [facility] Stop: 06/26/22 20:59 Vitamin D (Cholecalciferol 1,000 Units 25 Mcg Tab) 1,000 units [facility] Stop: 06/26/22 08:59 Last Admin: 05/27/22 07:32 Dose: 1,000 units
--- NOTE | 2022-05-27 14:05 | Hospitalist Progress Note ---
Date of Service May 27, 2022 Assessment & Plan (1) SOB (shortness of breath): Plan: - unclear etiology at this time - likely related to CAD but trop negative x3, ECG without ischemic changes - does report decreased exercise tolerance - chest discomfort - recent outpatient PFTs without evidence of obstructive disease - CTA negative - did note: cluster of low suspicion subcentimeter pulmonary nodules at the left lung base, as well as a possible subcentimeter groundglass nodule in the left lower lobe. These were not clearly seen on the 2014 examination and a 6 month follow-up chest CT is recommended for reassessment - Pulm and cardiology consulted - Plan for cardiac cath 05/28/2022 - NPO midnight (2) CAD (coronary artery disease): Plan: - h/o of PCI and CABG in 2019 - trop negative x3, ECG without ischemic changes - TTE unchanged from prior - LVEF 60%, G1DD - given symptoms as above and cardiac history, cardiology consulted - plan for cardiac cath as above - continue as pirin, statin, verapamil - telemetry monitoring for now (3) HTN (hypertension): Plan: - continue home meds (4) Hypothyroidism: Plan: - continue levothyroxine (5) GERD (gastroesophageal reflux disease): Plan: - continue pepcid Plan DVT ppx: heparin SC - hold morning dose prior to cardiac cath 05/28/2022 Code Status: Full Code Dispo: Telemetry Everardo Morton MD [facility] Medicine Admission and Anticipated Discharge Date Admission Date: May 26, 2022 Subjective Patient with HLD, hypothyroidism, HTN, CAD s/p PCI and CABG 2019, GERD, BPH who presented with subacute ALEXANDER and chest discomfort. Trop negative x3 and ECG without ischemic changes. Given history of Cardiac disease, Cardiology consulted and will do cardiac cath 05/28/2022 to evaluate coronary arteries. Pulm also consulted, however, outpatient PFTs without evidence of obstructive disease. Patient feeling well this morning, denies chest pain, shortness of breath but does report some orthopnea. Denies leg swelling, abdominal pain, n/v/d, dysuria. Review of Systems Review of Systems: All systems reviewed & are unremarkable except as noted in Subjective Physical Exam Physical Exam: GENERAL: The patient is of moderate build, not in acute distress. HEENT: Pupils equal, round and reactive to light. Oral mucosa moist. NECK: No JVD, no neck masses. CARDIOVASCULAR: S1 and S2 heard. Regular rate and rhythm. No murmur, no gallop. RESPIRATORY SYSTEM: Normal AP diameter. No accessory muscle use. No wheezing, no crackles. ABDOMEN: Soft, bowel sounds present, nontender. Mild left upper quadrant discomfort, no guarding, no rigidity, no distention. CENTRAL NERVOUS SYSTEM: Cranial nerves II-XII grossly intact, nonfocal. EXTREMITIES: No edema, no erythema. Results & Data Results & Data ([facility]) Vital Signs (Past 12 Hours) Vital Signs Temp Pulse Resp BP Pulse Ox O2 Del Method O2 Flow Rate 05/27/22 11:42 66 18 96 Nasal Cannula 2 05/27/22 11:28 36.3 C L 63 19 144/71 H 95 Nasal Cannula 05/27/22 07:56 36.6 C 57 L 20 122/55 L 97 Nasal Cannula 2 05/27/22 07:28 Room Air, Nasal Cannula 2 05/27/22 03:24 36.3 C L 78 16 113/63 95 Room Air Diagnostic Findings Laboratory Results WBC 6.92 K/ul (4.8-10.8) 05/27/22 05:26 RBC 4.44 M/uL (4.63-6.08) L 05/27/22 05:26 Hgb 13.8 g/dl (14.0-18.0) L 05/27/22 05:26 Hct 40.2 % (40.1-51.0) 05/27/22 05:26 MCV 90.5 fL (80.0-100.0) 05/27/22 05:26 MCH 31.1 pg (25.0-34.0) 05/27/22 05:26 MCHC 34.3 g/dL (32.0-36.0) 05/27/22 05:26 RDW Std Deviation 47.9 fL (36.4-46.3) H 05/27/22 05:26 RDW Coeff of Valentino 14.4 % (11.5-14.5) 05/27/22 05:26 Plt Count 151 K/uL (130-400) 05/27/22 05:26 MPV 10.6 fL (9.4-12.4) 05/27/22 05:26 Immature Gran % (Auto) 1.7 % 05/27/22 05:26 Neut % (Auto) 61.4 % 05/27/22 05:26 Lymph % (Auto) 22.1 % 05/27/22 05:26 Curry % (Auto) 10.1 % 05/27/22 05:26 Eos % (Auto) 4.0 % 05/27/22 05:26 Baso % (Auto) 0.7 % 05/27/22 05:26 Neut # (Auto) 4.24 K/uL (1.4-6.5) 05/27/22 05:26 Lymph # (Auto) 1.53 K/uL (1.2-3.4) 05/27/22 05:26 Curry # (Auto) 0.70 K/uL (0.24-0.82) 05/27/22 05:26 Eos # (Auto) 0.28 K/uL (0-0.50) 05/27/22 05:26 Baso # (Auto) 0.05 K/uL (0-0.2) 05/27/22 05:26 Immature Gran # (Auto) 0.12 K/uL (0.00-0.02) H 05/27/22 05:26 PT 11.1 Seconds (9.0-12.0) 05/26/22 19:15 INR 1.0 (0.9-1.1) 05/26/22 19:15 APTT 27.7 Seconds (21.0-31.0) 05/26/22 19:15 PTT Ratio 1.0 05/26/22 19:15 Sodium 137 mmol/L (136-145) 05/27/22 05:26 Potassium 3.6 mmol/L (3.5-5.1) 05/27/22 05:26 Chloride 108 mmol/L (98-107) H 05/27/22 05:26 Carbon Dioxide 22 mmol/L (21-32) 05/27/22 05:26 Anion Gap 7 (3-11) 05/27/22 05:26 BUN 22 mg/dl (6-23) 05/27/22 05:26 Creatinine 1.00 mg/dl (0.6-1.4) 05/27/22 05:26 Est Cr Clr Drug Dosing 65.2 ml/min 05/27/22 05:26 Est GFR ( Amer) 82.6 ml/min 05/27/22 05:26 Est GFR (Non-Af Amer) 71.3 ml/min 05/27/22 05:26 BUN/Creatinine Ratio 22.0 (10-20) H 05/27/22 05:26 Glucose 92 mg/dl (70-99(Fasting)) 05/27/22 05:26 Calcium 8.8 mg/dl (8.5-10.1) 05/27/22 05:26 Magnesium 2.0 mg/dl (1.7-2.4) 05/27/22 05:26 Total Bilirubin 0.9 mg/dl (0.2-1.0) 05/26/22 19:15 AST 16 U/L (13-39) 05/26/22 19:15 ALT 24 U/L (7-52) 05/26/22 19:15 Alkaline Phosphatase 70 U/L (34-104) 05/26/22 19:15 Troponin I High Sens 8.2 pg/ml (0-20) 05/27/22 11:07 B-Natriuretic Peptide 31 pg/ml (0-100) 05/26/22 20:50 Total Protein 6.5 gm/dl (6.0-8.3) 05/26/22 19:15 Albumin 4.1 gm/dl (3.4-5.0) 05/26/22 19:15 Globulin 2.4 gm/dl (2.5-4.0) L 05/26/22 19:15 Albumin/Globulin Ratio 1.7 (0.9-2) 05/26/22 19:15 SARS-CoV-2, RNA, NAAT NEGATIVE (NEGATIVE) 05/26/22 20:50 Impressions Chest X-Ray 05/26/22 19:05 XR chest 1V portable CLINICAL HISTORY: Shortness of breath. COMPARISON STUDY: Chest radiograph March 29, [address] October 31, 2018. FINDINGS: Surgical anchors within the right humeral head are incidentally noted. Lung volumes are normal. Lungs are clear. There is no pneumothorax or pleural effusion. Median sternotomy wires and mediastinal surgical clips are present. Cardiac size is stable. Mediastinal contours are normal. There is no evidence for pulmonary edema. IMPRESSION: No acute cardiopulmonary findings. ACT 112: Negative or not required by law. Electronically signed by: Darin Naylor M.D. 05/26/2022 8:18 PM Chest CTA 05/26/22 20:43 CT ANGIOGRAM OF THE CHEST CLINICAL HISTORY: Dyspnea. COMPARISON STUDY: Chest x-ray dated 05/26/2022. Chest CT scans dated 10/31/2018 and 03/25/2015. TECHNIQUE: Following the IV administration of 109 cc of Optiray 320, CT angiogram of the chest was performed from the upper abdomen to the thoracic inlet utilizing the pulmonary embolus protocol. Images are reviewed in the axial, sagittal, and coronal planes. 3-D MIPS images are created and assessed. IV contrast was administered without complication. A dose lowering technique was utilized adhering to the principles of ALARA. CT DOSE: 411.58 mGy.cm FINDINGS: Thyroid: Atrophic. Thoracic aorta: There is atherosclerotic calcification of the thoracic aorta, which is normal in caliber and demonstrates standard 3-vessel arch anatomy. There is no evidence of dissection. The thoracic aorta is not well opacified. Pulmonary vasculature: The pulmonary trunk is normal in caliber. There are no filling defects identified in main, lobar, or segmental pulmonary branches to suggest pulmonary embolus. Heart: The patient is status post midline sternotomy. The heart is mildly enlarged and without pericardial effusion. The coronary arteries are densely calcified. Lungs and pleural spaces: There is [id number] emphysema. No lobar consolidation or pleural effusion is identified. Scarring/atelectasis is seen at both lung bases. The trachea and central airways are clear. Clustered nodules at the right lung base measure up to 7 mm. These are best seen on images #12, #33, and #36. Question a 7 mm groundglass nodule in the left lower lobe on image #59. A calcified granuloma seen in the right middle lobe. Foci of mucous plugging are noted. Mediastinum: There is no mediastinal lymphadenopathy. Liss: Clear. Axillae: There is no axillary lymphadenopathy. Upper abdomen: Cholecystectomy clips are noted in the right upper quadrant. There is a small hiatal hernia. A 1 cm cyst is incidentally noted in the left lobe of the liver. Skeletal structures: The skeletal structures are osteopenic. Spondylotic change is noted throughout the thoracic spine. Arthritic change is seen in the shoulders. No lytic or blastic bony lesions are seen. IMPRESSION: 1. There is no evidence of pulmonary embolus in the main, lobar, or segmental pulmonary arteries. 2. Cardiomegaly and emphysema. 3. There is no airspace consolidation typical for pneumonia or pleural effusion. 4. There is a cluster of low suspicion subcentimeter pulmonary nodules at the left lung base, as well as a possible subcentimeter groundglass nodule in the left lower lobe. These were not clearly seen on the 2015 examination and a 6 month follow-up chest CT is recommended for reassessment. 5. Additional findings as above. ACT 112: Positive. There are findings on this exam that require communication between the performing entity and the patient following Patient Test Result Information Act ([place] Act 112) guidelines. Electronically signed by: Vazquez Nieves M.D. 05/27/2022 7:28 AM Medications Administered Current Inpatient Medications Acetaminophen (Acetaminophen 325 Mg Tab) 650 mg PO Q4H PRN PRN Reason: Pain or Fever Stop: 06/25/22 23:13 Albuterol (Albuterol Hfa 8 Gm Inhaler) 2 puffs INH Q6H PRN PRN Reason: Shortness Of Breath Stop: 06/25/22 23:13 Albuterol (Albut/Ipratrop 3mg/0.5mg Neb 3 Ml Vial) 3 ml INH BIDR [facility]; Protocol Stop: 06/26/22 18:59 Aspirin (Aspirin 81 Mg Ectab) 81 mg PO DAILY JOHANA Stop: 06/26/22 08:59 Last Admin: 05/27/22 07:32 Dose: 81 mg Atorvastatin Calcium (Atorvastatin 40 Mg Tab) 80 mg PO HS JOHANA Stop: 06/26/22 20:59 Cetirizine HCl (Cetirizine Hcl 10 Mg Tablet) 10 mg PO DAILY JOHANA Stop: 06/26/22 08:59 Last Admin: 05/27/22 07:32 Dose: 10 mg Ezetimibe (Ezetimibe 10 Mg Tablet) 10 mg PO QAM JOHANA Stop: 06/26/22 08:59 Last Admin: 05/27/22 07:32 Dose: 10 mg Famotidine (Famotidine 20 Mg Tab) 20 mg PO BID JOHANA Stop: 06/26/22 08:59 Last Admin: 05/27/22 07:33 Dose: 20 mg Fluticasone/Vilanterol (Fluticasone/Vilanterol 200/25mcg 14 Puffs/Inhaler) 1 puffs INH DAILY JOHANA Stop: 06/26/22 08:59 Last Admin: 05/27/22 07:33 Dose: 1 puffs Hydrochlorothiazide (Hydrochlorothiazide 25 Mg Tab) 12.5 mg PO QAM [facility] Stop: 06/26/22 08:59 Last Admin: 05/27/22 07:32 Dose: 12.5 mg Sodium Chloride (Nss 1000ml) 1,000 mls @ 86 mls/hr IV .[id number] [facility] Stop: 06/27/22 07:59 Lactobacillus Acidophilus (Advanced Probiotic 1250 Mg Capsule) 2 cap PO DAILY [facility] Stop: 06/26/22 08:59 Last Admin: 05/27/22 07:32 Dose: 2 cap Levothyroxine Sodium (Levothyroxine Sodium 137 Mcg Tablet) 137 mcg PO [email or web address] [facility] Stop: 06/26/22 06:29 Last Admin: 05/27/22 07:04 Dose: 137 mcg Levothyroxine Sodium (Levothyroxine Sodium 150 Mcg Tablet) 150 mcg PO [email or web address] [facility] Stop: 06/27/22 06:29 Losartan Potassium (Losartan Potassium 50 Mg Tab) [facility] [place]: 06/26/22 08:59 Last Admin: 05/27/22 07:31 Dose: 50 mg Montelukast Sodium (Montelukast Sodium 10 Mg Tablet) 10 mg PO [facility] Stop: 06/26/22 20:59 Nitroglycerin (Nitroglycerin Sl 0.4 Mg/Tab Tab) 0.4 mg SL UD PRN PRN Reason: Chest Pain Stop: 06/25/22 23:13 Polyethylene Glycol (Polyethylene (Miralax) 17 Gm Pack) 17 gm PO DAILY PRN PRN Reason: Constipation Stop: 06/25/22 23:13 Sertraline HCl (Sertraline Hcl 50 Mg Tablet) 50 [facility] [place]: 06/26/22 08:59 Last Admin: 05/27/22 07:31 Dose: 50 mg Spironolactone (Spironolactone 12.5 Mg Tab) 12.5 mg PO DAILY [facility] Stop: 06/26/22 08:59 Last Admin: 05/27/22 07:32 Dose: 12.5 mg Tamsulosin HCl (Tamsulosin Hcl 0.4 Mg Cap) 0.4 mg PO [facility] Stop: 06/26/22 20:59 Triamcinolone Acetonide (Triamcinolone Acet Nasal [place] 10.8ml Btl) 1 sprays NA BID PRN PRN Reason: as directed Stop: 06/25/22 23:13 Verapamil HCl (Verapamil Hcl 180 Mg Tabcr) 180 mg PO HS JOHANA Stop: 06/26/22 20:59 Vitamin D (Cholecalciferol 1,000 Units 25 Mcg Tab) 1,000 units PO [facility] JOH[facility] Stop: 06/26/22 08:59 Last Admin: 05/27/22 07:32 Dose: 1,000 units
--- NOTE | 2022-05-27 16:12 | Pulmonary Consultation ---
Date of Consultation May 27, 2022 Assessment & Plan (1) SOB (shortness of breath): 81 y/o M w/ PmHx moderate persistent asthma, CAD s/p PCI and CABG 2019, GERD, hypothyroidism, BPH admitted for worsening dyspnea on exertion. Shortness of Breath: -PFT's from 05/20/2022 reviewed, FEV1/FVC ratio >70%, DLCO >70%, normal flow loop. No signs of obstructive disease. -CTA chest w/ few small nodules at left lower lung base. -?PNA contribution to shortness of breath vs asthma vs cardiac demand ischemia. -Started patient on Cefdinir 300mg BID, Azithromycin 500mg qAM for possible CAP. -Added hypertonic nebulizer, flutter valve. -Ordered sputum sample for culture, sputum eosinophils for etiology of asthma. -Patient would benefit from methylcholine challenge test, IgE, alpha 1 antitrypsin deficiency testing as outpatient. CAD: -Given patient's past history of CAD and atypical angina leading to PCI and CABG, symptoms may be due to underlying worsening CAD. -Will defer to cardiology, cath scheduled in the AM. (2) CAD (coronary artery disease): (3) Abnormal CT scan, chest: (4) Mild persistent asthma: Plan Patient was seen and examined with the resident physician. Agree with the assessment and plan aside for any additions/exceptions noted: Patient with longstanding asthma per history. Nodular infiltrate noted on the left lower lobe. Possible chronic aspiration pneumonitis versus atypical infection. Bears watching. Recommend a follow-up CT chest in 2 to 3 months. Recommend starting cefdinir and azithromycin with a course of 5 to 7 days. Recommend outpatient methacholine challenge test/, IgE, alpha-1 antitrypsin testing. Sputum cytology reviewed today with no evidence of eosinophils, but the sample was poor. PFTs from 05/20/2022 completed at an outside facility reviewed. Normal FEV1 and DLCO. No signs of chronic obstructive pulmonary disease. Asthma difficult to rule out. Otherwise, continue home inhaler regimen and consider increasing Wixela to 500/50 mcg twice daily. Physical exam: Constitutional: Patient appears to be of their stated age. Patient is in no apparent distress. Patient is well-developed. Eyes: Pupils are equal round and reactive to light. Conjunctivae are normal. Anicteric sclera. Ears nose, mouth and throat: Mallampati class 2. Normal posterior oropharynx. Uvula is midline. Neck: Trachea is midline. Visual inspection is normal. Respiratory: Mild inspiratory crackles at the left lung base Cardiovascular: Regular rate and rhythm. No murmurs. No edema. Gastrointestinal: Normal bowel sounds, soft, nontender and nondistended. No hepatosplenomegaly noted. Musculoskeletal: No cyanosis. Patient is able to move all extremities. Strength is 5 out of 5 in the upper and lower extremities. Skin: No rashes, warm dry and intact. Neurologic: No obvious focal neurological deficits seen. Psychiatric: Alert and oriented x3 with a euthymic affect. History of Present Illness Reason for Consultation: COPD w/ worsening ALEXANDER Requesting Physician: Dr. Everardo Morton Attending Physician: Everardo Morton MD History of Present Illness Judith is a 81 year old male w/ PmHx moderate persistent asthma, CAD s/p PCI and CABG 2020, GERD, hypothyroidism, BPH who presented to the hospital due to shortness of breath/Alexander for the past few weeks. Patient states that he had episodes of transient shortness of breath with exertion starting a 3-4 weeks ago when he was on vacation in [place] at the [place] area. He said that this was exacerbated again a few weeks ago when he was attempting to climb into a tractor and felt he became short winded and gasping for air - he took a day to recover from this episode. He also states that he had a few more repeat of these instances with walking/moving to and from locations in his house. He states he had a short course of prednisone taper a couple weeks ago when it was thought this may be due to underlying asthma exacerbation. 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 He was told to go to the emergency department for further workup and analysis. He has a past history of asthma which was diagnosed possibly 20-30 years ago. He has had asthma exacerbations every few years, uses Wixela BID along with rescue inhaler at home. He said he hasn't been using the rescue inhaler as much as it hasn't made much of a difference with current symptoms however he has been using his nebulizer three times per day which has helped a little bit. 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 He has had some dizziness and chest pressure associated with this dyspnea on exertion. He also has a history of reflux for which he takes Pepcid for every day. Denies fevers, chills, nausea, diarrhea, constipation. Allergies Allergy/AdvReac Type Severity Reaction Status Date / Time Beta-Blockers AdvReac Mild History Verified 03/29/21 19:25 (Beta-Adrenergic Bloc intolerance as per records codeine AdvReac Mild N/V Verified 03/29/21 19:25 Home Medications Medication Instructions Recorded Confirmed Type levothyroxine 137 mcg tablet 137 mcg PO [id number] 10/31/18 05/26/22 History levothyroxine 150 mcg tablet 150 mcg PO [id number] 10/31/18 05/26/22 History (Synthroid) sertraline 50 mg tablet (Zoloft) 50 mg PO QAM 10/31/18 05/26/22 History tamsulosin 0.4 mg capsule (Flomax) 0.4 mg PO HS 10/31/18 05/26/22 History triamcinolone acetonide 55 mcg 1 spray intranasal BID PRN as 10/31/18 05/26/22 History nasal spray aerosol directed albuterol sulfate 90 mcg/actuation 2 puff inhalation Q6H PRN 07/12/19 05/26/22 History aerosol inhaler Shortness Of Breath fluticasone 250 mcg-salmeterol 50 1 inh inhalation AMHS 07/12/19 05/26/22 History mcg/dose blistr powdr for inhalation (Wixela Inhub) atorvastatin 80 mg tablet 80 mg PO HS 12/06/20 05/26/22 History cholecalciferol (vitamin D3) 25 25 mcg PO QAM 12/06/20 05/26/22 History mcg (1,000 unit) tablet (Vitamin D3) famotidine 20 mg tablet (Pepcid) 20 mg PO BID 12/06/20 05/26/22 History hydrochlorothiazide 12.5 mg capsule 12.5 mg PO QAM 12/06/20 05/26/22 History losartan 100 mg tablet 50 mg PO QAM 12/06/20 05/26/22 History verapamil 180 mg tablet,extended 180 mg PO HS 12/06/20 05/26/22 History release aspirin 81 mg tablet,delayed 81 mg PO DAILY 01/13/21 05/26/22 History release Lactobacillus acidophilus 10 10,000 mmu cells PO DAILY 05/26/22 05/26/22 History billion cell capsule (Probiotic) cetirizine 10 mg capsule (Zyrtec) 10 mg PO DAILY 05/26/22 05/26/22 History ezetimibe 10 mg tablet 10 mg PO QAM 05/26/22 05/26/22 History ipratropium 0.5 mg-albuterol 3 mg 3 ml inhalation Q4 PRN Shortness 05/26/22 05/26/22 History (2.5 mg base)/3 mL nebulization Of Breath Or Wheezing soln montelukast 10 mg tablet 10 mg PO HS 05/26/22 05/26/22 History potassium chloride 10 mEq 10 meq PO UD 05/26/22 05/26/22 History tablet,extended release(part/cryst) spironolactone 25 mg tablet 12.5 mg PO DAILY 05/26/22 05/26/22 History azithromycin 250 mg tablet 500 mg PO QAM #6 tabs 05/28/22 Rx cefdinir 300 mg capsule 300 mg PO BID #11 caps 05/28/22 Rx sodium chloride 7 % for 4 ml NEB BIDR PRN congestion #120 05/28/22 Rx nebulization mL Patient History Medical History (Updated 05/28/22 @ 13:53 by Jose Lugo MD) Abdominal pain Abnormal CT scan, chest Afib post-op CABG, no known recurrences per pt Asthma BPH (benign prostatic hyperplasia) CAD (coronary artery disease) CABG (2018) + stents (MARY to prox Lcx, MARY x2 to mid LAD- 2018) Clostridium difficile carrier COPD (chronic obstructive pulmonary disease) High serum chloride History of Graves' disease History of pulmonary embolism 2010, AC since discontinued Hypertension Hypothyroidism Leukocytosis Mild persistent asthma Prostate cancer S/P seed implant Skin cancer Surgical History H/O rotator cuff surgery History of appendectomy History of basal cell carcinoma (BCC) excision History of cardiac cath CABG (2018) + stents (MARY to prox Lcx, MARY x2 to mid LAD- 2019) History of cholecystectomy Lap cholecystectomy, open repair of umbilical hernia (12/09/2020): Grade 2 view, MAC #3, ETT 7.5 at [facility], [place] History of colonoscopy with polypectomy History of cystoscopy History of eye surgery History of hernia repair History of malignant melanoma of skin Back, eyelid History of thyroidectomy, total History of vasectomy Status post double vessel coronary artery bypass CABG (2019) Status post operation on nasal sinus 2002 Family History Father Cancer Prostate and bladder Mother Stroke Breast cancer Social History Smoking Status: Former smoker Age Quit Using Tobacco: 27; Second Hand Exposure: No; Do You Dip or Chew Tobacco: No; Tobacco Cessation Education Requested by Patient: No Hx Alcohol Use: Yes Alcohol type: hard liquor Alcohol Intake Frequency Comment: 1-2 drinks per day Hx Substance Use: No Preferred Language: Turkish Communication Ability: Effective Diagnostic Medical Sonographer Required: No Beliefs That Will Affect Care: None marital status: Current Living Situation: Spouse current occupational status: retired current occupation: Retired Other Information That Helps Us Care for You: No Feels Safe at Home: Yes Safety Concerns: Feels Safe At This Time Assistive Devices: None Review of Systems Review of Systems: As per HPI. Physical Exam Constitutional: WD/WN, vitals as above Patient resting comfortably in bed. Eyes: PERRL, conjunctivae normal, anicteric sclerae Respiratory: Mild bibasilar crackles, otherwise clear to auscultation, no wheezing. Cardiovascular: S1 and S2, RRR, no murmurs. No edema at bilateral extremities. Gastrointestinal (Abdomen): normal bowel sounds, soft, nontender, no hepatosplenomegaly Skin: no rashes, warm and dry Psychiatric: A+Ox3, euthymic affect Results & Data Results & Data ([facility]) Vital Signs (Past 12 Hours) Vital Signs Temp Pulse Resp BP Pulse Ox O2 Del Method O2 Flow Rate 05/27/22 15:46 36.3 C L 77 19 97/58 L 95 Room Air 05/27/22 11:42 66 18 96 Nasal Cannula 2 05/27/22 11:28 36.3 C L 63 19 144/71 H 95 Nasal Cannula 05/27/22 07:56 36.6 C 57 L 20 122/55 L 97 Nasal Cannula 2 05/27/22 07:28 Room Air, Nasal Cannula 2 Resident Activity Tracking Resident Involvement: Resident Care Provided Care Provided: Adult Hospital Medicine
--- NOTE | 2022-05-27 16:17 | Electrocardiogram Report ---
Test Reason : Blood Pressure : / mmHG Vent. Rate : 068 BPM Atrial Rate : 068 BPM P-R Int : 154 ms QRS Dur : 090 ms QT Int : 402 ms P-R-T Axes : 052 027 058 degrees QTc Int : 427 ms Poor data quality, interpretation may be adversely affected Normal sinus rhythm Cannot rule out Anterior infarct (cited on or before 29-MAR-2021) Possible Inferior infarct Abnormal ECG When compared with ECG of 29-MAR-2021 18:43, No significant change was found Confirmed by Dayday Galvez ([id number]) on 05/27/2022 4:16:40 PM Referred By: REFERRED SELF Confirmed By:Dayday Galvez
--- NOTE | 2022-05-27 16:30 | Billing Data ---
Date of Service May 27, 2022 Coding Level of Care Code 28502 Subseq Obs Care Lvl 3
[2022-05-27] MEDS ORDERED: SODIUM CHLOR 7% 4 ML NEB NEB SCH (19:00)
[2022-05-27] MEDS: ALBUT/IPRATROP 3MG/0.5MG NEB 3 ML VIAL INH SCH (19:43)
[2022-05-27] MEDS: SODIUM CHLOR 7% 4 ML NEB NEB SCH (20:07)
[2022-05-27] MEDS: CEFDINIR 300 MG CAP PO SCH (20:09)
[2022-05-27] MEDS: HEPARIN SOD 5,000 UNIT/0.5 ML VIAL SQ SCH (20:12)
[2022-05-27] MEDS ORDERED: VERAPAMIL HCL 180 MG TABCR PO SCH (21:00)
[2022-05-27] MEDS ORDERED: TAMSULOSIN HCL 0.4 MG CAP PO SCH (21:00)
[2022-05-27] MEDS ORDERED: MONTELUKAST SODIUM 10 MG TABLET PO SCH (21:00)
[2022-05-27] MEDS ORDERED: ATORVASTATIN 40 MG TAB PO SCH (21:00)
--- NOTE | 2022-05-27 21:51 | Electrocardiogram Report ---
Test Reason : Blood Pressure : / mmHG Vent. Rate : 061 BPM Atrial Rate : 061 BPM P-R Int : 156 ms QRS Dur : 102 ms QT Int : 436 ms P-R-T Axes : 064 028 060 degrees QTc Int : 438 ms Normal sinus rhythm Possible Inferior infarct , age undetermined Abnormal ECG When compared with ECG of 26-MAY-2022 19:13, No significant change was found Confirmed by Dayday Galvez ([id number]) on 05/27/2022 9:50:32 PM Referred By: REFERRED SELF Confirmed By:Dayday Galvez
[2022-05-28] MEDS: HEPARIN SOD 5,000 UNIT/0.5 ML VIAL SQ SCH (05:53)
[2022-05-28 06:28] LABS: INR 1.1 (0.9-1.1); Prothrombin Time 11.3 Seconds (9.0-12.0)
[2022-05-28] MEDS ORDERED: LEVOTHYROXINE SODIUM 150 MCG TABLET PO SCH (06:30)
[2022-05-28 06:35] LABS: Albumin Globulin Ratio 1.7 (0.9-2); Albumin Level 3.9 gm/dl (3.4-5.0); BUN Creatinine Ratio 21.2 (10-20); Bilirubin,Total 0.9 mg/dl (0.2-1.0); Calcium 8.8 mg/dl (8.5-10.1); Creatinine Clr Calc Pharmacy 57.6 ml/min; Est GFR (African American) 71.3 ml/min; Est GFR (Non-African American) 61.5 ml/min; Globulin 2.3 gm/dl (2.5-4.0); Magnesium 2.1 mg/dl (1.7-2.4); Phosphorus 3.7 mg/dl (2.5-4.9); Total Protein 6.2 gm/dl (6.0-8.3)
[2022-05-28] MEDS ORDERED: LIDOCAINE 1% LOCAL 20 ML VIAL ONE (06:51)
[2022-05-28] MEDS: ALBUT/IPRATROP 3MG/0.5MG NEB 3 ML VIAL INH SCH (06:55)
[2022-05-28] MEDS ORDERED: ASPIRIN 81 MG CHEW ONE (07:37)
[2022-05-28] MEDS ORDERED: MIDAZOLAM HCL 1 MG/ML 2ML VIAL ONE (07:38)
[2022-05-28] MEDS ORDERED: fentaNYL citrate 100 MCG/2 ML VIAL ONE (07:38)
[2022-05-28] MEDS ORDERED: SODIUM CHLORIDE 0.9% 1000ML 1,000 ML IV SCH (08:00)
--- NOTE | 2022-05-28 08:30 | Cardiac Catheterization ---
Date of Service May 28, 2022 Cardiac Cath Report Cardiac Cath Report Procedure: 1. Left heart catheterization 2. Coronary angiography 3. Left ventriculogram History: This is a 81-year-old with a complex past cardiac history. He had several stents placed in his proximal LAD and left circumflex artery in 2019 followed by two-vessel coronary artery bypass surgery with an JOHNATHON to the LAD and saphenous vein graft to the OM. He was admitted to hospital with dyspnea on exertion over the past several weeks which he described as his anginal equivalent. Procedure summary: After informed consent was obtained the patient was brought to the cardiac catheterization lab where he was prepped and draped in usual manner for right transfemoral approach. Preformed 5 Kazakh diagnostic catheters were utilized for the coronary angiograms including the JOHNATHON graft and SVG graft. A 5 Kazakh pigtail catheter was utilized for the left heart pressures and left ventriculogram. Following the procedure the arterial site was closed with a minx device and the patient was returned to his room in stable condition. ACC data: Start time 7:56 AM End time 8:15 AM Opening aortic pressure 117/53 Closing aortic pressure 126/45 Left ventricular pressure 130/11 Sedation 1 mg intravenous Versed IV fluids 60 cc normal saline Contrast 115 cc Visipaque Fluoroscopy time 6 minutes Radiation 933 mGy DAP 81.98 Gy/cm Right dominant system AUC score 9 Coronary angiography: Selective injections of the right coronary artery reveal it to be dominant. The right coronary artery is widely patent. Selective injections of the saphenous vein graft to the obtuse marginal branch from the left circumflex artery reveal it to be widely patent supplying both antegrade and retrograde flow to the left circumflex artery. Selective injections of the JOHNATHON graft to the LAD reveal it to be widely patent supplying both antegrade and retrograde flow to the LAD. Selective injections of the prairie band left coronary artery reveal the left circumflex artery to be patent with competitive flow from the saphenous vein gr aft to the OM. Similar to the left circumflex, the LAD appears to be patent with competitive flow from the JOHNATHON graft. There is evidence of a long segment of coronary stent in both the proximal left circumflex and LAD with some in- stent restenosis. Summary: Widely patent saphenous vein graft to the OM and widely patent JOHNATHON graft to the LAD. Widely patent dominant right coronary artery. The prairie band left coronary artery reveals long segments of coronary stents in both the proximal LAD and left circumflex artery with some in-stent stenosis with competitive flow from the prairie band artery to the SVG and JOHNATHON. Recommendations: Continued medical management the patient's coronary artery disease.
[2022-05-28] MEDS ORDERED: AZITHROMYCIN 250 MG TAB PO SCH (09:00)
[2022-05-28] MEDS: SODIUM CHLOR 7% 4 ML NEB NEB SCH (10:07)
[2022-05-28] MEDS: ADVANCED PROBIOTIC 1250 MG CAPSULE PO SCH (10:19)
[2022-05-28] MEDS: FLUTICASONE/VILANTEROL 200/25MCG 14 PUFFS/INHALER INH SCH (10:19)
[2022-05-28] MEDS: LOSARTAN POTASSIUM 50 MG TAB PO SCH (10:20)
[2022-05-28] MEDS: SPIRONOLACTONE 12.5 MG TAB PO SCH (10:20)
[2022-05-28] MEDS: CEFDINIR 300 MG CAP PO SCH (10:20)
[2022-05-28] MEDS: EZETIMIBE 10 MG TABLET PO SCH (10:20)
[2022-05-28] MEDS: CHOLECALCIFEROL 1,000 UNITS 25 MCG TAB PO SCH (10:20)
[2022-05-28] MEDS: hydroCHLOROthiazide 25 MG TAB PO SCH (10:21)
[2022-05-28] MEDS: CETIRIZINE HCL 10 MG TABLET PO SCH (10:22)
[2022-05-28] MEDS: SERTRALINE HCL 50 MG TABLET PO SCH (10:23)
[2022-05-28] MEDS: FAMOTIDINE 20 MG TAB PO SCH (10:23)
[2022-05-28] MEDS: ASPIRIN 81 MG ECTAB PO SCH (10:24)
--- NOTE | 2022-05-28 12:22 | Discharge Summary ---
Date of Service May 28, 2022 Admission HPI Per Admitting Provider This is a 81-year-old male with a past medical history significant for history of hyperlipidemia; postoperative hypothyroidism; history of asthma, moderate persistent; chronic rhinitis; hypertension; CAD, status post stent, status post CABG; hypertension. Postop after CABG, had AFib without reoccurrence as per epic notes, GERD, BPH, MUGS, depression, pulmonary embolism long time back, no longer on any anticoagulation, history of prostate cancer. Presents with ongoing shortness of breath and chest discomfort. The patient has been having shortness of breath going on for some time, followed with pulmonary. Last week, he had a pulmonary function test was given an inhaler for asthma. Initially, he was prescribed a tapering dose of prednisone, it has not helped much. Lately, he has also developed chest discomfort and he also feels like passing out and when this happens, he takes a whole day to recover. Called Cardiology office and was advised to come to the ER. He was placed on nitroglycerin paste and his chest discomfort has improved, saturating okay on room air. Chest x-ray looks okay. Initial lab work was okay. Resting comfortably. He is able to give the history. He says recently one time he woke up in the night gasping for breath. He could not lie flat. No swelling in the legs. No nausea or vomiting. No abdominal pain. Normal bowel and bladder movements. No blood in the stools or black stools. No hematuria, no burning micturitions. No fevers, sometimes feels chills. He has cough with yellowish and whitish phlegm. Appetite is okay. No recent significant weight gain or weight loss. No difficulty swallowing. Currently, no headache, no earache. He has runny nose from his sinusitis. No sore throat.Daughter is worried that in the past all the cardiac workup initially was ok and later patient had cardiac stents and cabg. Admission Exam Per Admitting Provider GENERAL: The patient is of moderate build, not in acute distress. VITAL SIGNS: Temperature 37.1, pulse 66, respiratory rate 16, blood pressure 154/82, oxygen 97% on room air. HEENT: Pupils equal, round and reactive to light. Oral mucosa moist. NECK: No JVD, no neck masses. CARDIOVASCULAR: S1 and S2 heard. Regular rate and rhythm. No murmur, no gallop. RESPIRATORY SYSTEM: Normal AP diameter. No accessory muscle use. No wheezing, no crackles. ABDOMEN: Soft, bowel sounds present, nontender. Mild left upper quadrant discomfort, no guarding, no rigidity, no distention. CENTRAL NERVOUS SYSTEM: Cranial nerves II-XII grossly intact, nonfocal. EXTREMITIES: No edema, no erythema. Principal Diagnosis Pneumonia/bronchitis Discharge Exam GENERAL: The patient is of moderate build, not in acute distress. HEENT: Pupils equal, round and reactive to light. Oral mucosa moist. NECK: No JVD, no neck masses. CARDIOVASCULAR: S1 and S2 heard. Regular rate and rhythm. No murmur, no gallop. Right groin catheter access point with dressing c/d/i RESPIRATORY SYSTEM: Normal AP diameter. No accessory muscle use. No wheezing, no crackles. CTAB ABDOMEN: Soft, bowel sounds present, nontender. Mild left upper quadrant discomfort, no guarding, no rigidity, no distention. CENTRAL NERVOUS SYSTEM: Cranial nerves II-XII grossly intact, nonfocal. EXTREMITIES: No edema, no erythema. Discharge Data Allergies Allergy/AdvReac Type Severity Reaction Status Date / Time Beta-Blockers AdvReac Mild History Verified 03/29/21 19:25 (Beta-Adrenergic Bloc intolerance as per records codeine AdvReac Mild N/V Verified 03/29/21 19:25 Consultations 05/26/22 21:24 ED Decision to Admit Stat 05/27/22 08:00 Consult Cardiology Routine 05/27/22 10:57 Consult Pulmonology Routine Procedures Performed Operation Date: 05/28/22 08:00 Actual Procedures p Cineradiography w/Routine Exam - Alli Rich DO p Cath, Left with Cors and Vent - Alli Rich DO Ordered Studies 05/26/22 20:43 CT angio chest PE protocol Stat 05/28/22 06:35 CL Cath Imgs for PACS use only Routine Hospital Course (1) SOB (shortness of breath): - unclear etiology at this time - likely related to CAD but trop negative x3, ECG without ischemic changes - does report decreased exercise tolerance - chest discomfort - recent outpatient PFTs without evidence of obstructive disease - CTA negative - did note: cluster of low suspicion subcentimeter pulmonary nodules at the left lung base, as well as a possible subcentimeter groundglass nodule in the left lower lobe. These were not clearly seen on the 2015 examination and a 6 month follow-up chest CT is recommended for reassessment - Pulm and cardiology consulted - cardiac cath 05/28/2022 with patent coronaries, ok for discharge per Cardiology - started on azithromycin, cefdinir and saline nebs for pneumonia/bronchitis - recommend follow up with Transition Manager and Terminal Supervisor (2) CAD (coronary artery disease): - h/o of PCI and CABG in 2019 - trop negative x3, ECG without ischemic changes - TTE unchanged from prior - LVEF 60%, G1DD - given symptoms as above and cardiac history, cardiology consulted - plan for cardiac cath as above - patent coronaries not concerning for cardiac ischemia - continue as pirin, statin, verapamil - telemetry monitoring for now (3) HTN (hypertension): - continue home meds (4) Hypothyroidism: - continue levothyroxine (5) GERD (gastroesophageal reflux disease): - continue pepcid Plan DVT ppx: heparin SC Code Status: Full Code Dispo: Telemetry Discharge home 05/28/2022 Everardo Morton MD [facility] Medicine Total Time Total Time Spent Total Time Spent (In Minutes): 35 Total Time Includes: Examination of the Patient, Discharge Planning, Medication Reconciliation and Communication With Other Providers Discharge Plan Discharge Items Patient Disposition: Home - Self-Care Reason For Visit: SOB,HARD TIME BREATHING,CHEST PAIN,COUGH Discharge Diagnosis: Pneumonia Activity: Resume your previous activity Non-emergency contact: Primary Care Provider, Transition Manager and Terminal Supervisor Call non-emergency contact if: you have any medication questions and your symptoms worsen Follow-up/Referrals: Donn Clarke MD [Primary Care Provider] - (Date & Time 06/02/2022 11:20 AM Provider Donn Clarke MD Department General Internal Medicine [facility] ) Jonnathan Song [Physician Door Fitter] - Rajwinder Miranda CRNP [Outside Practitioners] - (Date & Time 06/07/2022 2:00 PM Provider COURTNEY Madrigal Department Pulmonary Medicine, [facility] ) Diet: Heart Healthy Addtl Attending Provider Instructions: You were admitted for shortness of breath with activity and cough. You were seen by Cardiology and Pulmonology and you had a heart catheterization to look at your coronary (heart) arteries. Your heart vessels were ok and there was no need for further Cardiology work up. Pulmonary started you on antibiotics (azithromycin for 5 days, cefdinir for 7 days) which you should continue. You should continue to follow up with your primary care doctor, parasitology teacher, and congressional aide for resolution of symptoms and further work up. May need repeat PFTs to assess for asthma. Symptoms could be related to a pneumonia or bronchitis. Pending Studies at Discharge: No Stand-Alone Forms: My [facility], Smoking Cessation Medications and DC Order Prescriptions: New azithromycin 250 mg Tablet 500 mg PO QAM Qty: 6 0RF cefdinir 300 mg Capsule 300 mg PO BID Qty: 11 0RF sodium chloride 7 % Solution For Nebulization 4 ml NEB BIDR PRN (Reason: congestion) Qty: 120 0RF Continued levothyroxine 137 mcg Tablet 137 mcg PO 4XWK Rx Instructions: TAKE , THUR, TUE, TUE tamsulosin [Flomax] 0.4 mg capsule 0.4 mg PO HS triamcinolone acetonide 55 mcg Aerosol,[place] 1 spray INTRANASAL BID PRN (Reason: as directed) levothyroxine [Synthroid] 150 mcg tablet 150 mcg PO 3XWK Rx Instructions: TAKE ON MON, WED, FRI sertraline [Zoloft] 50 mg Tablet 50 mg PO QAM albuterol sulfate 90 mcg/actuation Hfa Aerosol Inhaler 2 puff INHALATION Q6H PRN (Reason: Shortness Of Breath) fluticasone propion-salmeterol [Wixela Inhub] 250-50 mcg/dose Blister With Device 1 inh INHALATION AMHS verapamil 180 mg tablet extended release 180 mg PO HS famotidine [Pepcid] 20 mg tablet 20 mg PO BID hydrochlorothiazide 12.5 mg capsule 12.5 mg PO QAM losartan 100 mg tablet 50 mg PO QAM Rx Instructions: 1/2 tablet dose atorvastatin 80 mg Tablet 80 mg PO HS cholecalciferol (vitamin D3) [Vitamin D3] 25 mcg (1,000 unit) Tablet 25 mcg PO QAM ipratropium-albuterol 0.5 mg-3 mg(2.5 mg base)/3 mL solution for nebulization 3 ml INHALATION Q4 PRN (Reason: Shortness Of Breath Or Wheezing) montelukast 10 mg tablet 10 mg PO HS spironolactone 25 mg tablet 12.5 mg PO DAILY ezetimibe 10 mg tablet 10 mg PO QAM potassium chloride 10 mEq tablet,ER particles/crystals 10 meq PO UD Zyrtec 10 mg Capsule 10 mg PO DAILY Probiotic 10 billion cell Capsule 10,000 mmu cells PO DAILY aspirin 81 mg Tablet,Delayed Release (Dr/Ec) 81 mg PO DAILY Discharge Orders: Discharge Order (Routine); Ordered 05/28/22 Ordered By: Everardo Morton Admission Data Admit Date/Time: 05/26/22 22:03 Attending Provider: Everardo Morton Admit Provider: Morales Del Rio Primary Care Provider: Donn Clarke Other Providers: Morales Del Rio ; Toni Lopez ; Edward Kevin ; Ant Bowie ; Kishore Brandt ; Alli Rich ; Jonnathan Song ; Ade Marsh ; Jeimy Merritt ; Annika Hurst ; Laurent Kellogg ; Jose Manzano
--- NOTE | 2022-05-28 15:29 | Electrocardiogram Report ---
Test Reason : Blood Pressure : / mmHG Vent. Rate : 052 BPM Atrial Rate : 052 BPM P-R Int : 174 ms QRS Dur : 100 ms QT Int : 450 ms P-R-T Axes : 051 017 050 degrees QTc Int : 418 ms Sinus bradycardia with occasional Premature ventricular complexes Possible Inferior infarct (cited on or before 01-FEB-2021) Abnormal ECG When compared with ECG of 27-MAY-2022 05:34, Premature ventricular complexes are now Present Confirmed by Kevin Carrizales ([id number]) on 05/28/2022 3:29:23 PM Referred By: REFERRED SELF Confirmed By:Kevin Carrizales
== END 2022-05-28 14:00 | disposition home or self-care (01) ==
LOC: ED 18:57 → 4W 18:57

== ENCOUNTER 2023-11-24 19:23 | Inpatient (IN) ==
[2023-11-24] MEDS: ALBUT/IPRATROP 3MG/0.5MG NEB 3 ML VIAL INH STA (20:11)
[2023-11-24] MEDS: methylPREDNISolone 125 MG/2 ML VIAL IV STA (20:12)
[2023-11-24 20:13] LABS: Basophils # (auto) 0.06 K/uL (0.00-0.20); Basophils % (auto) 0.3 %; Eosinophils # (auto) 0.08 K/uL (0.00-0.50); Eosinophils % (auto) 0.4 %; Hematocrit (blood only) 45.1 % (42.0-52.0); Hemoglobin 14.9 g/dl (14.0-18.0); Lymphocytes # (auto) 0.74 K/uL (1.20-3.40); Lymphocytes % (auto) 3.7 %; Mean Corpuscular Hemoglobin 29.4 pg (25.0-34.0); Mean Corpuscular Volume 89.1 fL (80.0-100.0); Mean Platelet Volume 10.9 fL (9.4-12.4); Monocytes # (auto) 1.17 K/uL (0.11-0.59); Monocytes % (auto) 5.9 %; Neutrophils % (auto) 88.7 %; Platelet Count 162 K/uL (130-400); RDW Coefficient of Variation 15.5 % (11.5-14.5); RDW Standard Deviation 50.8 fL (36.4-46.3); Red Blood Count 5.06 M/uL (4.70-6.10); White Blood Count 19.85 K/ul (4.8-10.8)
[2023-11-24 20:27] LABS: Appearance Urine Clear (Clear); Bilirubin Urine Negative (Negative); Blood Urine Negative (Negative); Color Urine Yellow; Glucose Urine UA Negative (Negative); Ketones Urine Negative (Negative); Leukocyte Esterase Urine Negative (Negative); Nitrite Urine Negative (Negative); Protein Urine Negative (Negative); Urobilinogen Urine Negative (Negative)
[2023-11-24 20:33] LABS: Albumin Globulin Ratio 1.3 (0.9-2); Albumin Level 3.8 gm/dl (3.4-5.0); BUN Creatinine Ratio 24.1 (10-20); Bilirubin,Total 1.3 mg/dl (0.2-1.0); Creatinine Clr Calc Pharmacy 59.6 ml/min; Est GFR (African American) 74.7 ml/min; Est GFR (Non-African American) 64.5 ml/min; Globulin 2.9 gm/dl (2.5-4.0); Potassium 4.1 mmol/L (3.5-5.1); Total Protein 6.7 gm/dl (6.0-8.3)
[2023-11-24 20:41] LABS: Troponin I High Sensitivity 15.2 pg/ml (0-20)
--- NOTE | 2023-11-24 20:50 | Emergency Department Note ---
Impression & Plan Pneumonia, Hypoxia, COPD exacerbation ED Provider Note Diagnosis: Pneumonia, COPD exacerbation, hypoxia Disposition: Admission CHIEF COMPLAINT: Shortness of breath, chest pain HPI: Patient is a an 82-year-old male presenting with complaint of chest pain and shortness of breath. Patient states his symptoms are progressively worse over the past 2 to 3 days time. Patient states he felt increasing shortness of breath and struggling to breathe just prior to calling EMS. Patient was given a DuoNeb treatment and Zofran en route to the hospital. Patient placed on 2 L nasal cannula oxygen support for room air oxygen saturation of 89% on arrival in the emergency room. Patient states that he follows with pulmonology team and he has been on courses of steroids but when this steroids and his condition deteriorates again. Patient states it has been 7 days since his last steroid dose. Patient denies any fevers. Patient states he has been experiencing increasing coughing. Patient states chest tightness present. Patient has had double bypass cardiac surgery previously. PAST MEDICAL HISTORY: See Below PAST SURGICAL HISTORY: See Below SOCIAL HISTORY: See Below HOME MEDICATIONS: See Below ALLERGIES: See Below VITALS: See Below PHYSICAL EXAMINATION: GENERAL: Well appearing, well nourished, NAD, non-toxic. EYE EXAM: Normal conjunctiva. OROPHARYNX: Moist mucus membranes. Grossly normal dentition. NECK: Supple, LUNGS: Wheezing bilaterally. HEART: NSR ABDOMEN: Abdomen soft, non-tender, normo-active bowel sounds, no masses, no rebound or guarding BACK: No CVA TTP. SKIN: No rashes and no bruising. UPPER EXTREMITIES: Upper extremities are grossly normal LOWER EXTREMITIES: Grossly normal, no edema. NEURO EXAM: A&O x3,, normal speech, moves all 4 extremities PSYCH: Cooperative MEDICAL DECISION MAKING: History obtained from: Patient, , daughters ER Course: Patient is an 82-year-old male presenting with complaint of shortness of breath and chest tightness. Patient found to be 89% on room air upon arrival in the emergency room. Patient requiring oxygen which she does not use at home. Patient states increased coughing and productive sputum. Patient has history of COPD. Patient last on steroid taper 7 days prior. Patient's EKG without signs of ischemia. Patient's chest x-ray shows right lower lobe pneumonia. Patient started on community-acquired antibiotics. Patient's first troponin negative. Patient's BNP not elevated. Patient admitted to hospital service further treatment and evaluation Labs (independently interpreted) are significant for: Leukocytosis Imaging results (independently interpreted): Chest x-ray right lower lobe pneumonia EKG interpretation (independently interpreted): Sinus rhythm no ST segment elevation or depression Medications given: Solu-Medrol, DuoNeb, Rocephin, Zithromax Consultants: Hospitalist Chronic conditions affecting care: COPD Triage Nursing notes reviewed and agree them. Vital Signs: reviewed and remarkable for: Hypoxia Past Med/Surg History Medical History (Updated 11/24/23 @ 23:06 by Florin Soares DO) Mild persistent asthma Abnormal CT scan, chest Abdominal pain Ileus Post-ERCP acute pancreatitis Acute pancreatitis High serum chloride Leukocytosis CAD (coronary artery disease) CABG (2018) + stents (MARY to prox Lcx, MARY x2 to mid LAD- 2018) Afib post-op CABG, no known recurrences per pt Hypokalemia Clostridium difficile carrier History of Graves' disease Hypothyroidism BPH (benign prostatic hyperplasia) History of pulmonary embolism 2010, AC since discontinued Skin cancer Prostate cancer S/P seed implant COPD (chronic obstructive pulmonary disease) Asthma Hypertension Surgical History History of cardiac cath CABG (2018) + stents (MARY to prox Lcx, MARY x2 to mid LAD- 2018) History of cholecystectomy Lap cholecystectomy, open repair of umbilical hernia (12/09/2020): Grade 2 view, MAC #3, ETT 7.5 at [facility] Status post double vessel coronary artery bypass CABG (2018) History of vasectomy History of thyroidectomy, total History of cystoscopy History of colonoscopy with polypectomy History of malignant melanoma of skin Back, eyelid History of basal cell carcinoma (BCC) excision History of hernia repair History of eye surgery Status post operation on nasal sinus 2002 H/O rotator cuff surgery History of appendectomy Family History Father Cancer Prostate and bladder Mother Stroke Breast cancer Social History Smoking Status: Never smoker Age Quit Using Tobacco: 27; Second Hand Exposure: No; Do You Dip or Chew Tobacco: No; Hx Alcohol Use: Yes Alcohol type: hard liquor Alcohol Intake Frequency Comment: 1-2 drinks per day Hx Substance Use: No Preferred Language: Yi Communication Ability: Effective Tow Mate Required: No Beliefs That Will Affect Care: None marital status: Current Living Situation: Spouse current occupational status: retired current occupation: Retired Feels Safe at Home: Yes Assistive Devices: None Allergies Allergies Allergy/AdvReac Type Severity Reaction Status Date / Time Beta-Blockers AdvReac Mild History Verified 03/29/21 19:25 (Beta-Adrenergic Bloc intolerance as per records codeine AdvReac Mild N/V Verified 03/29/21 19:25 Home Meds Home Medications Medication Instructions Recorded Confirmed levothyroxine 137 mcg tablet 137 mcg PO 4XWK 10/31/18 05/26/22 levothyroxine 150 mcg tablet 150 mcg PO 3XWK 10/31/18 05/26/22 (Synthroid) sertraline 50 mg tablet (Zoloft) 50 mg PO QAM 10/31/18 05/26/22 tamsulosin 0.4 mg capsule (Flomax) 0.4 mg PO 10/31/18 05/26/22 triamcinolone acetonide 55 mcg 1 spray intranasal BID PRN as 10/31/18 05/26/22 nasal spray aerosol directed albuterol sulfate 90 mcg/actuation 2 puff inhalation Q6H PRN 07/12/19 05/26/22 aerosol inhaler Shortness Of Breath fluticasone 250 mcg-salmeterol 50 1 inh inhalation AMHS 07/12/19 05/26/22 mcg/dose blistr powdr for inhalation (Wixela Inhub) atorvastatin 80 mg tablet 80 mg PO 12/06/20 05/26/22 cholecalciferol (vitamin D3) 25 25 mcg PO QAM 12/06/20 05/26/22 mcg (1,000 unit) tablet (Vitamin D3) famotidine 20 mg tablet (Pepcid) 20 mg PO BID 12/06/20 05/26/22 hydrochlorothiazide 12.5 mg capsule 12.5 mg PO QAM 12/06/20 05/26/22 losartan 100 mg tablet 50 mg PO QAM 12/06/20 05/26/22 verapamil 180 mg tablet,extended 180 mg PO HS 12/06/20 05/26/22 release aspirin 81 mg tablet,delayed 81 mg PO DAILY 01/13/21 05/26/22 release Lactobacillus acidophilus 10 10,000 mmu cells PO DAILY 05/26/22 05/26/22 billion cell capsule (Probiotic) cetirizine 10 mg capsule (Zyrtec) 10 mg PO DAILY 05/26/22 05/26/22 ezetimibe 10 mg tablet 10 mg PO QAM 05/26/22 05/26/22 ipratropium 0.5 mg-albuterol 3 mg 3 ml inhalation Q4 PRN Shortness 05/26/22 05/26/22 (2.5 mg base)/3 mL nebulization Of Breath Or Wheezing soln montelukast 10 mg tablet 10 mg PO HS 05/26/22 05/26/22 potassium chloride 10 mEq 10 meq PO UD 05/26/22 05/26/22 tablet,extended release(part/cryst) spironolactone 25 mg tablet 12.5 mg PO DAILY 05/26/22 05/26/22 Previous Rx's Medication Instructions Recorded azithromycin 250 mg tablet 500 mg (2 x 250 mg) PO QAM #6 tabs 05/28/22 cefdinir 300 mg capsule 300 mg PO BID #11 caps 05/28/22 sodium chloride 7 % for 4 ml NEB BIDR PRN congestion #120 05/28/22 nebulization mL Results & Data (ED) Vital Signs Vital Signs - 24 hr 11/24/23 19:42 11/24/23 19:42 11/24/23 19:42 Temperature 37.1 C Temperature Source Oral Pulse Rate 102 H Pulse Rate [Apical] Respiratory Rate 18 Respiratory Effort / Characteristics Non-Labored Non-Labored Respiratory Depth Normal Normal Respiratory Pattern Regular Regular Blood Pressure 159/84 H Blood Pressure [Right Arm] Blood Pressure Mean 109 Blood Pressure Mean [Right Arm] Pulse Oximetry 90 89 L Oxygen Delivery Method Room Air Nasal Cannula Room Air Nasal Cannula Oxygen Flow Rate 2 Sepsis Recent Fever Within 48 Hours No Sepsis New/Unexplained Change in Mental Status N/A Sepsis Action Taken by Nursing No Action Required Oxygen Flow Rate - Titration 2 Pulse Oximetry Post Tiitration 94 11/24/23 19:44 11/24/23 20:06 11/24/23 20:06 Temperature Temperature Source Pulse Rate 105 H 102 H Pulse Rate [Apical] Respiratory Rate 18 Respiratory Effort / Characteristics Respiratory Depth Respiratory Pattern Blood Pressure Blood Pressure [Right Arm] Blood Pressure Mean Blood Pressure Mean [Right Arm] Pulse Oximetry 95 Oxygen Delivery Method Nasal Cannula Nasal Cannula Oxygen Flow Rate 2 Sepsis Recent Fever Within 48 Hours Sepsis New/Unexplained Change in Mental Status Sepsis Action Taken by Nursing Oxygen Flow Rate - Titration Pulse Oximetry Post Tiitration 11/24/23 22:30 Temperature Temperature Source Pulse Rate Pulse Rate [Apical] 94 H Respiratory Rate 18 Respiratory Effort / Characteristics Non-Labored Respiratory Depth Normal Respiratory Pattern Regular Blood Pressure Blood Pressure [Right Arm] 162/83 H Blood Pressure Mean Blood Pressure Mean [Right Arm] 109 Pulse Oximetry 94 Oxygen Delivery Method Room Air Nasal Cannula Oxygen Flow Rate 2 Sepsis Recent Fever Within 48 Hours Sepsis New/Unexplained Change in Mental Status Sepsis Action Taken by Nursing Oxygen Flow Rate - Titration Pulse Oximetry Post Tiitration Laboratory Data 11/24/23 19:45 11/24/23 19:45 Lab Results 11/24/23 11/24/23 11/24/23 Range/Units 19:45 20:10 22:28 WBC 19.85 H (4.8-10.8) K/ul RBC 5.06 (4.70-6.10) M/uL Hgb 14.9 (14.0-18.0) g/dl Hct 45.1 (42.0-52.0) % MCV 89.1 (80.0-100.0) fL MCH 29.4 (25.0-34.0) pg MCHC 33.0 (32.0-36.0) g/dL RDW Std Deviation 50.8 H (36.4-46.3) fL RDW Coeff of Valentino 15.5 H (11.5-14.5) % Plt Count 162 (130-400) K/uL MPV 10.9 (9.4-12.4) fL Immature Gran % (Auto) 1.0 % Neut % (Auto) 88.7 % Lymph % (Auto) 3.7 % [place] % (Auto) 5.9 % Eos % (Auto) 0.4 % Baso % (Auto) 0.3 % Neut # (Auto) 17.60 H (1.40-6.50) K/uL Lymph # (Auto) 0.74 L (1.20-3.40) K/uL [place] # (Auto) 1.17 H (0.11-0.59) K/uL Eos # (Auto) 0.08 (0.00-0.50) K/uL Baso # (Auto) 0.06 (0.00-0.20) K/uL Immature Gran # (Auto) 0.20 (0.01-0.20) K/uL Sodium 135 L (136-145) mmol/L Potassium 4.1 (3.5-5.1) mmol/L Chloride 103 (98-107) mmol/L Carbon Dioxide 23 (21-32) mmol/L Anion Gap 9 (3-11) BUN 26 H (6-23) mg/dl Creatinine 1.08 (0.6-1.4) mg/dl Est Cr Clr Drug Dosing 59.6 ml/min Est GFR ( Amer) 74.7 ml/min Est GFR (Non-Af Amer) 64.5 ml/min BUN/Creatinine Ratio 24.1 H (10-20) Glucose 104 H (70-99(Fasting)) mg/dl Lactate 1.5 (0.4-2.0) mmol/L Calcium 9.0 (8.6-10.3) mg/dl Total Bilirubin 1.3 H (0.2-1.0) mg/dl AST 14 (13-39) U/L ALT 19 (7-52) U/L Alkaline Phosphatase 73 (34-104) U/L Troponin I High Sens 15.2 (0-20) pg/ml B-Natriuretic Peptide 52 (0-100) pg/ml Total Protein 6.7 (6.0-8.3) gm/dl Albumin 3.8 (3.4-5.0) gm/dl Globulin 2.9 (2.5-4.0) gm/dl Albumin/Globulin Ratio 1.3 (0.9-2) Urine Color Urine Appearance (Clear) Urine pH (4.5-7.5) Ur Specific [place] (1.000-1.030) Urine Protein (Negative) Urine Glucose (UA) (Negative) Urine Ketones (Negative) Urine Blood (Negative) Urine Nitrite (Negative) Urine Bilirubin (Negative) Urine Urobilinogen (Negative) Ur Leukocyte Esterase (Negative) Adenovirus (PCR) Not Detected (NotDetected) B. pertussis DNA (PCR) Not Detected (NotDetected) B.parapertussis DNA PCR Not Detected (NotDetected) C. pneumoniae DNA (PCR) Not Detected (NotDetected) Coronavirus OC43 (PCR) Not Detected (NotDetected) Coronavirus HKU1 (PCR) Not Detected (NotDetected) Coronavirus 229E (PCR) Not Detected (NotDetected) SARS-CoV-2 (PCR) Not Detected (NotDetected) Coronavirus NL63 (PCR) Not Detected (NotDetected) Human Metapneumovir PCR Not Detected (NotDetected) Influenza Type A (PCR) Not Detected (NotDetected) Influenza Type B (PCR) Not Detected (NotDetected) M. pneumoniae (PCR) Not Detected (NotDetected) Parainfluenza 1 (PCR) Not Detected (NotDetected) Parainfluenza 2 (PCR) Not Detected (NotDetected) Parainfluenza 3 (PCR) Not Detected (NotDetected) Parainfluenza 4 (PCR) Not Detected (NotDetected) RSV (PCR) Not Detected (NotDetected) Entero/Rhino (PCR) Not Detected (NotDetected) 11/24/23 Range/Units Unknown WBC (4.8-10.8) K/ul RBC (4.70-6.10) M/uL Hgb (14.0-18.0) g/dl Hct (42.0-52.0) % MCV (80.0-100.0) fL MCH (25.0-34.0) pg MCHC (32.0-36.0) g/dL RDW Std Deviation (36.4-46.3) fL RDW Coeff of Valentino (11.5-14.5) % Plt Count (130-400) K/uL MPV (9.4-12.4) fL Immature Gran % (Auto) % Neut % (Auto) % Lymph % (Auto) % [place] % (Auto) % Eos % (Auto) % Baso % (Auto) % Neut # (Auto) (1.40-6.50) K/uL Lymph # (Auto) (1.20-3.40) K/uL [place] # (Auto) (0.11-0.59) K/uL Eos # (Auto) (0.00-0.50) K/uL Baso # (Auto) (0.00-0.20) K/uL Immature Gran # (Auto) (0.01-0.20) K/uL Sodium (136-145) mmol/L Potassium (3.5-5.1) mmol/L Chloride (98-107) mmol/L Carbon Dioxide (21-32) mmol/L Anion Gap (3-11) BUN (6-23) mg/dl Creatinine (0.6-1.4) mg/dl Est Cr Clr Drug Dosing ml/min Est GFR ( Amer) ml/min Est GFR (Non-Af Amer) ml/min BUN/Creatinine Ratio (10-20) Glucose (70-99(Fasting)) mg/dl Lactate (0.4-2.0) mmol/L Calcium (8.6-10.3) mg/dl Total Bilirubin (0.2-1.0) mg/dl AST (13-39) U/L ALT (7-52) U/L Alkaline Phosphatase (34-104) U/L Troponin I High Sens (0-20) pg/ml B-Natriuretic Peptide (0-100) pg/ml Total Protein (6.0-8.3) gm/dl Albumin (3.4-5.0) gm/dl Globulin (2.5-4.0) gm/dl Albumin/Globulin Ratio (0.9-2) Urine Color Yellow Urine Appearance Clear (Clear) Urine pH 6.0 (4.5-7.5) Ur Specific [place] 1.020 (1.000-1.030) Urine Protein Negative (Negative) Urine Glucose (UA) Negative (Negative) Urine Ketones Negative (Negative) Urine Blood Negative (Negative) Urine Nitrite Negative (Negative) Urine Bilirubin Negative (Negative) Urine Urobilinogen Negative (Negative) Ur Leukocyte Esterase Negative (Negative) Adenovirus (PCR) (NotDetected) B. pertussis DNA (PCR) (NotDetected) B.parapertussis DNA PCR (NotDetected) C. pneumoniae DNA (PCR) (NotDetected) Coronavirus OC43 (PCR) (NotDetected) Coronavirus HKU1 (PCR) (NotDetected) Coronavirus 229E (PCR) (NotDetected) SARS-CoV-2 (PCR) (NotDetected) Coronavirus NL63 (PCR) (NotDetected) Human Metapneumovir PCR (NotDetected) Influenza Type A (PCR) (NotDetected) Influenza Type B (PCR) (NotDetected) M. pneumoniae (PCR) (NotDetected) Parainfluenza 1 (PCR) (NotDetected) Parainfluenza 2 (PCR) (NotDetected) Parainfluenza 3 (PCR) (NotDetected) Parainfluenza 4 (PCR) (NotDetected) RSV (PCR) (NotDetected) Entero/Rhino (PCR) (NotDetected) Administered Medications Ceftriaxone Sodium (Rocephin) 1,000 mg in 50 mls @ 100 mls/hr IV Q24H JOHANA Stop: 12/01/23 21:59 Last Infusion: 11/24/23 23:00 Dose: Infused Documented By: Infusion: 11/24/23 22:36 Dose: 100 mls/hr Documented By: Infusion: 11/24/23 22:07 Dose: 0 mls/hr Documented By: Admin: 11/24/23 22:01 Dose: 100 mls/hr Documented By: SATISH Azithromycin 500 mg/ Dextrose 255 mls @ 127.5 mls/hr IV NOW STA Stop: 11/24/23 23:47 Last Admin: 11/24/23 22:40 Dose: 127.5 mls/hr Documented By: SATISH Discontinued Medications Albuterol (Albut/Ipratrop 3mg/0.5mg Neb 3 Ml Vial) 3 ml INH NOW STA Stop: 11/24/23 19:54 Last Admin: 11/24/23 20:11 Dose: 3 ml Documented By: SATISH Methylprednisolone (Methylprednisolone 125 Mg/2 Ml Vial) 125 mg IV NOW STA Stop: 11/24/23 19:54 Last Admin: 11/24/23 20:12 Dose: 125 mg Documented By: SATISH Discharge Plan Visit Data Chief Complaint: Shortness of Breath/Dyspnea Stated Complaint: SOB ED Provider: Florin Soares Discharge Problem: Pneumonia, Hypoxia, COPD exacerbation Forms Stand Alone Forms: [facility] Prescriptions Prescriptions: No Action levothyroxine 137 mcg Tablet 137 mcg PO 4XWK Rx Instructions: TAKE TUES, THUR, SAT, SUN tamsulosin [Flomax] 0.4 mg capsule 0.4 mg PO HS triamcinolone acetonide 55 mcg Aerosol,[place] 1 spray INTRANASAL BID PRN (Reason: as directed) levothyroxine [Synthroid] 150 mcg tablet 150 mcg PO 3XWK Rx Instructions: TAKE ON MON, WED, FRI sertraline [Zoloft] 50 mg Tablet 50 mg PO QAM albuterol sulfate 90 mcg/actuation Hfa Aerosol Inhaler 2 puff INHALATION Q6H PRN (Reason: Shortness Of Breath) fluticasone propion-salmeterol [Wixela Inhub] 250-50 mcg/dose Blister With Device 1 inh INHALATION AMHS verapamil 180 mg tablet extended release 180 mg PO HS famotidine [Pepcid] 20 mg tablet 20 mg PO BID hydrochlorothiazide 12.5 mg capsule 12.5 mg PO QAM losartan 100 mg tablet 50 mg PO QAM Rx Instructions: 1/2 tablet dose atorvastatin 80 mg Tablet 80 mg PO HS cholecalciferol (vitamin D3) [Vitamin D3] 25 mcg (1,000 unit) Tablet 25 mcg PO QAM ipratropium-albuterol 0.5 mg-3 mg(2.5 mg base)/3 mL solution for nebulization 3 ml INHALATION Q4 PRN (Reason: Shortness Of Breath Or Wheezing) montelukast 10 mg tablet 10 mg PO HS spironolactone 25 mg tablet 12.5 mg PO DAILY ezetimibe 10 mg tablet 10 mg PO QAM potassium chloride 10 mEq tablet,ER particles/crystals 10 meq PO UD Zyrtec 10 mg Capsule 10 mg PO DAILY Probiotic 10 billion cell Capsule 10,000 mmu cells PO DAILY azithromycin 250 mg Tablet 500 mg PO QAM Qty: 6 0RF cefdinir 300 mg Capsule 300 mg PO BID Qty: 11 0RF sodium chloride 7 % Solution For Nebulization 4 ml NEB BIDR PRN (Reason: congestion) Qty: 120 0RF aspirin 81 mg Tablet,Delayed Release (Dr/Ec) 81 mg PO DAILY Referrals Referrals: Donn Clarke MD [Primary Care Provider] -
[2023-11-24 21:23] LABS: Adenovirus PCR Not Detected (NotDetected); Bordetella parapertussis PCR Not Detected (NotDetected); Bordetella pertussis PCR Not Detected (NotDetected); Chlamydia pneumoniae PCR Not Detected (NotDetected); Coronavirus 229E PCR Not Detected (NotDetected); Coronavirus CoV-2 (COVID19)PCR Not Detected (NotDetected); Coronavirus HKU1 PCR Not Detected (NotDetected); Coronavirus NL63 PCR Not Detected (NotDetected); Coronavirus OC43PCR Not Detected (NotDetected); Human Metapneumovirus PCR Not Detected (NotDetected); Influenza A PCR Not Detected (NotDetected); Influenza B PCR Not Detected (NotDetected); Mycoplasma pneumoniae PCR Not Detected (NotDetected); Parainfluenza Virus 1 PCR Not Detected (NotDetected); Parainfluenza Virus 2 PCR Not Detected (NotDetected); Parainfluenza Virus 3 PCR Not Detected (NotDetected); Parainfluenza Virus 4 PCR Not Detected (NotDetected); Respiratory Syncytial VirusPCR Not Detected (NotDetected); Rhinovirus/Enterovirus PCR Not Detected (NotDetected)
[2023-11-24] MEDS: cefTRIAXone SODIUM 1,000 MG/50 ML BAG IV SCH (22:01)
[2023-11-24] MEDS: AZITHROMYCIN 500 MG in DEXTROSE 5% 250 ML IV STA (22:40)
--- NOTE | 2023-11-24 23:44 | History & Physical Report ---
Date of Service November 24, 2023 Assessment & Plan (1) COPD exacerbation: Plan: 82-year-old male with past medical history significant for hyperlipidemia, postoperative hypothyroidism, asthma moderate persistent, bronchiectasis without complication, chronic rhinitis, hypertension, history of CAD s/p CABG, s/p stent, history of postoperative A-fib, GERD, BPH, MUGS, mild depression, beta- blockers contraindicated, history of pulmonary embolism, history of prostate c ancer lives at home ambulates without support comes because of shortness of breath and cough going on for last few days.Family is in the room. As per family patient completed second course of prednisone taper a week ago. Again patient developed shortness of breath and coughing up yellowish phlegm. Feeling weak. Appetite is down. Last night he had chills. Denies any fevers. Before he came in he had some chest pain but that got resolved. Chest pain is more when he is coughing. Pollen bothers him. Denies any headache. Vision is okay. Currently no runny nose or sore throat. No nausea. No abdominal pain. Normal bowel and bladder movements. No rash. In the ER he was saturating 88%. On 2 L he saturating okay. 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 Recently was started on budesonide. Bronchiectasis flare/asthma exacerbation History of bronchiectasis and moderate persistent asthma Hypoxia requiring oxygen Possible pneumonia Leukocytosis/patient recently was on steroids Received IV Solu-Medrol, IV Rocephin and IV azithromycin and DuoNebs in the ER. Will continue with IV Solu-Medrol 40 mg 3 times daily, IV Rocephin and IV doxycycline and nebs [id number] and as needed. Continue home inhalers. Will consult pulmonary for further recommendations. Monitoring telemetry. History of CAD s/p CABG, s/p stent On aspirin, statin, Zetia Follows with cardiology. Hypothyroidism On Synthyroid. Hypertension. On losartan diuretics and verapamil Will monitor GERD On Pepcid. Hyperlipidemia. On statin and Zetia. History of volume overload Recently cardiology increase spironolactone to 25 mg daily and added Lasix 20 mg 3 times a week. His lower extremity edema resolved. Plan to reduce losartan dose if develops hypotension as per cardiology .will monitor. History of MUGS Follows with [facility] hematology/oncology. History of prostate cancer. s/p hormone therapy and brachytherapy. History of remote pulmonary embolism. DVT prophylaxis Lovenox. Disposition. Telemetry. Full code History of Present Illness Chief Complaint: Shortness of breath Primary Care Provider: Donn Clarke MD 82-year-old male with past medical history significant for hyperlipidemia, postoperative hypothyroidism, asthma moderate persistent, bronchiectasis without complication, chronic rhinitis, hypertension, history of CAD s/p CABG, s/p sten t, history of postoperative A-fib, GERD, BPH, MUGS, mild depression, beta- blockers contraindicated, history of pulmonary embolism, history of prostate cancer lives at home ambulates without support comes because of shortness of breath and cough going on for last few days.Family is in the room. As per family patient completed second course of prednisone taper a week ago. Again patient developed shortness of breath and coughing up yellowish phlegm. Feeling weak. Appetite is down. Last night he had chills. Denies any fevers. Before he came in he had some chest pain but that got resolved. Chest pain is more when he is coughing. Pollen bothers him. Denies any headache. Vision is okay. Currently no runny nose or sore throat. No nausea. No abdominal pain. Normal bowel and bladder movements. No rash. In the ER he was saturating 88%. On 2 L he saturating okay. 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 Recently was started on budesonide Past medical history. As mentioned above Past surgical history. CABG, right shoulder arthroscopy, biopsy of eyelid, bronchoscopy, cataract surgery bilateral, colonoscopy, cystoscopy, EGD with endoscopic ultrasound, ERCP, thyroidectomy, appendectomy, laparoscopic cholecystectomy, nasal sinus endoscopy, umbilical hernia repair, vasectomy. Social history. . Quit, smoking 1970. Smoked 1 pack a day for 25 years. Alcohol 1 drink 3 times a week. No drug use. Family history. Father had prostate and bladder cancer. Pulmonary embolism. Mother had breast cancer. Stroke. Allergies Allergy/AdvReac Type Severity Reaction Status Date / Time Beta-Blockers AdvReac Mild History Verified 03/29/21 19:25 (Beta-Adrenergic Bloc intolerance as per records codeine AdvReac Mild N/V Verified 03/29/21 19:25 Home Medications Medication Instructions Recorded Confirmed Type sertraline 50 mg tablet (Zoloft) 50 mg PO QAM 10/31/18 11/25/23 History tamsulosin 0.4 mg capsule (Flomax) 0.4 mg PO HS 10/31/18 11/25/23 History albuterol sulfate 90 mcg/actuation 2 puff inhalation Q6H PRN 07/12/19 11/24/23 History aerosol inhaler Shortness Of Breath atorvastatin 80 mg tablet 80 mg PO HS 12/06/20 11/24/23 History cholecalciferol (vitamin D3) 25 25 mcg PO 3XWK 12/06/20 11/25/23 History mcg (1,000 unit) tablet (Vitamin D3) famotidine 20 mg tablet (Pepcid) 20 mg PO BID 12/06/20 11/24/23 History losartan 100 mg tablet 100 mg PO QAM 12/06/20 11/24/23 History aspirin 81 mg tablet,delayed 162 mg PO QPM 01/13/21 11/24/23 History release Lactobacillus acidophilus 10 10,000 mmu cells PO DAILY 05/26/22 11/25/23 History billion cell capsule (Probiotic) cetirizine 10 mg capsule (Zyrtec) 10 mg PO AMPM 05/26/22 11/25/23 History ezetimibe 10 mg tablet 10 mg PO QAM 05/26/22 11/24/23 History ipratropium 0.5 mg-albuterol 3 mg 3 ml inhalation Q4 PRN Shortness 05/26/22 11/24/23 History (2.5 mg base)/3 mL nebulization Of Breath Or Wheezing soln montelukast 10 mg tablet 10 mg PO HS 05/26/22 11/24/23 History spironolactone 25 mg tablet 25 mg PO QAM 05/26/22 11/24/23 History acetaminophen 500 mg tablet 500 mg PO Q4H PRN Pain 11/24/23 11/24/23 History dextran 70-hypromellose 1 applic OPB UD PRN Eye Irritation 11/24/23 11/24/23 History fluorouracil 0.5 % topical cream 1 applic topical HS 11/24/23 11/24/23 History furosemide 20 mg tablet 20 mg PO 3XWK 11/24/23 11/24/23 History ipratropium bromide 42 mcg (0.06 1 spray intranasal HS 11/24/23 11/24/23 History %) nasal spray levothyroxine 125 mcg tablet 125 mcg PO DAILYBB 11/24/23 11/24/23 History prednisolone acetate 1 % eye See Rx Instructions .Route .COMPLEX 11/24/23 11/25/23 History drops,suspension psyllium 0 tbsp PO DAILY 11/24/23 11/24/23 History triamcinolone acetonide 55 mcg 1 spray intranasal . NEEDED PRN 11/24/23 11/24/23 History nasal spray aerosol (Nasacort Congestion Allergy) budesonide 0.5 mg/2 mL suspension 0.5 mg inhalation Q12H 11/25/23 11/25/23 Histo ry for nebulization fluticasone fur. 200 mcg-umeclid 1 inh inhalation DAILY 11/25/23 11/25/23 History 62.5 mcg-vilant 25 mcg inhalat.powder (Trelegy Ellipta) verapamil 120 mg tablet,extended 120 mg PO QAM 11/25/23 11/25/23 History release Past Med/Surg History Medical History (Updated 11/24/23 @ 23:06 by Florin Soares DO) Mild persistent asthma Abnormal CT scan, chest Abdominal pain Ileus Post-ERCP acute pancreatitis Acute pancreatitis High serum chloride Leukocytosis CAD (coronary artery disease) CABG (2018) + stents (MARY to prox Lcx, MARY x2 to mid LAD- 2018) Afib post-op CABG, no known recurrences per pt Hypokalemia Clostridium difficile carrier History of Graves' disease Hypothyroidism BPH (benign prostatic hyperplasia) History of pulmonary embolism 2010, AC since discontinued Skin cancer Prostate cancer S/P seed implant COPD (chronic obstructive pulmonary disease) Asthma Hypertension Surgical History History of cardiac cath CABG (2018) + stents (MARY to prox Lcx, MARY x2 to mid LAD- 2018) History of cholecystectomy Lap cholecystectomy, open repair of umbilical hernia (12/09/2020): Grade 2 view, MAC #3, ETT 7.5 at [facility] Status post double vessel coronary artery bypass CABG (2019) History of vasectomy History of thyroidectomy, total History of cystoscopy History of colonoscopy with polypectomy History of malignant melanoma of skin Back, eyelid History of basal cell carcinoma (BCC) excision History of hernia repair History of eye surgery Status post operation on nasal sinus 2002 H/O rotator cuff surgery History of appendectomy Family History Father Cancer Prostate and bladder Mother Stroke Breast cancer Social History Smoking Status: Former smoker Tobacco Type: Cigarettes Age Quit Using Tobacco: 27; Smoking End Date: quit 60 years ago; Second Hand Exposure: No; Do You Dip or Chew Tobacco: No; Tobacco Cessation Education Requested by Patient: No Hx Alcohol Use: Yes Alcohol type: hard liquor Alcohol Intake Frequency Comment: 1-2 drinks per day Hx Substance Use: No Preferred Language: B[place] Communication Ability: Effective Lettuce Cutter Required: No Beliefs That Will Affect Care: None marital status: Current Living Situation: Spouse current occupational status: retired current occupation: Retired Feels Safe at Home: Yes Safety Concerns: Feels Safe At This Time Assistive Devices: Glasses Review of Systems Review of Systems: All systems reviewed & are unremarkable except as noted in HPI & below Physical Exam Physical Exam: General- adult Head- atraumatic Eyes- PERRL. ENT- oropharynx clear Neck- supple, no JVD. Lungs- clear to auscultation mild b/l rhonchi Heart- regular rhythm; no murmur, no gallop. Abdomen- normal bowel sounds, soft, nontender, no distension. Extremities- no pretibial edema, no erythema seen. Neuro- alert, oriented PERRL, no facial palsy; no dysarthria; moves extremities. Results & Data Results & Data Vital Signs (Past 12 Hours) Vital Signs Temp Pulse Pulse Resp BP BP Pulse Ox 11/24/23 22:30 94 H 18 162/83 H 94 11/24/23 20:06 102 H 18 95 11/24/23 20:06 11/24/23 19:44 105 H 11/24/23 19:42 89 L 11/24/23 19:42 11/24/23 19:42 37.1 C 102 H 18 159/84 H 90 O2 Del Method O2 Flow Rate 11/24/23 22:30 Room Air, Nasal Cannula 2 11/24/23 20:06 Nasal Cannula 2 11/24/23 20:06 Nasal Cannula 11/24/23 19:44 11/24/23 19:42 Room Air, Nasal Cannula 11/24/23 19:42 Nasal Cannula 2 11/24/23 19:42 Room Air Diagnostic Findings Laboratory Results WBC 19.85 K/ul (4.8-10.8) H 11/24/23 19:45 RBC 5.06 M/uL (4.70-6.10) 11/24/23 19:45 Hgb 14.9 g/dl (14.0-18.0) 11/24/23 19:45 Hct 45.1 % (42.0-52.0) 11/24/23 19:45 MCV 89.1 fL (80.0-100.0) 11/24/23 19:45 MCH 29.4 pg (25.0-34.0) 11/24/23 19:45 MCHC 33.0 g/dL (32.0-36.0) 11/24/23 19:45 RDW Std Deviation 50.8 fL (36.4-46.3) H 11/24/23 19:45 RDW Coeff of Valentino 15.5 % (11.5-14.5) H 11/24/23 19:45 Plt Count 162 K/uL (130-400) 11/24/23 19:45 MPV 10.9 fL (9.4-12.4) 11/24/23 19:45 Immature Gran % (Auto) 1.0 % 11/24/23 19:45 Neut % (Auto) 88.7 % 11/24/23 19:45 Lymph % (Auto) 3.7 % 11/24/23 19:45 Tift % (Auto) 5.9 % 11/24/23 19:45 Eos % (Auto) 0.4 % 11/24/23 19:45 Baso % (Auto) 0.3 % 11/24/23 19:45 Neut # (Auto) 17.60 K/uL (1.40-6.50) H 11/24/23 19:45 Lymph # (Auto) 0.74 K/uL (1.20-3.40) L 11/24/23 19:45 Tift # (Auto) 1.17 K/uL (0.11-0.59) H 11/24/23 19:45 Eos # (Auto) 0.08 K/uL (0.00-0.50) 11/24/23 19:45 Baso # (Auto) 0.06 K/uL (0.00-0.20) 11/24/23 19:45 Immature Gran # (Auto) 0.20 K/uL (0.01-0.20) 11/24/23 19:45 Sodium 135 mmol/L (136-145) L 11/24/23 19:45 Potassium 4.1 mmol/L (3.5-5.1) 11/24/23 19:45 Chloride 103 mmol/L (98-107) 11/24/23 19:45 Carbon Dioxide 23 mmol/L (21-32) 11/24/23 19:45 Anion Gap 9 (3-11) 11/24/23 19:45 BUN 26 mg/dl (6-23) H 11/24/23 19:45 Creatinine 1.08 mg/dl (0.6-1.4) 11/24/23 19:45 Est Cr Clr Drug Dosing 59.6 ml/min 11/24/23 19:45 Est GFR ( Amer) 74.7 ml/min 11/24/23 19:45 Est GFR (Non-Af Amer) 64.5 ml/min 11/24/23 19:45 BUN/Creatinine Ratio 24.1 (10-20) H 11/24/23 19:45 Glucose 104 mg/dl (70-99(Fasting)) H 11/24/23 19:45 Lactate 1.5 mmol/L (0.4-2.0) 11/24/23 22:28 Calcium 9.0 mg/dl (8.6-10.3) 11/24/23 19:45 Total Bilirubin 1.3 mg/dl (0.2-1.0) H 11/24/23 19:45 AST 14 U/L (13-39) 11/24/23 19:45 ALT 19 U/L (7-52) 11/24/23 19:45 Alkaline Phosphatase 73 U/L (34-104) 11/24/23 19:45 Troponin I High Sens 15.2 pg/ml (0-20) 11/24/23 19:45 B-Natriuretic Peptide 52 pg/ml (0-100) 11/24/23 19:45 Total Protein 6.7 gm/dl (6.0-8.3) 11/24/23 19:45 Albumin 3.8 gm/dl (3.4-5.0) 11/24/23 19:45 Globulin 2.9 gm/dl (2.5-4.0) 11/24/23 19:45 Albumin/Globulin Ratio 1.3 (0.9-2) 11/24/23 19:45 Urine Color Yellow 11/24/23 Unknown Urine Appearance Clear (Clear) 11/24/23 Unknown Urine pH 6.0 (4.5-7.5) 11/24/23 Unknown Ur Specific [place] 1.020 (1.000-1.030) 11/24/23 Unknown Urine Protein Negative (Negative) 11/24/23 Unknown Urine Glucose (UA) Negative (Negative) 11/24/23 Unknown Urine Ketones Negative (Negative) 11/24/23 Unknown Urine Blood Negative (Negative) 11/24/23 Unknown Urine Nitrite Negative (Negative) 11/24/23 Unknown Urine Bilirubin Negative (Negative) 11/24/23 Unknown Urine Urobilinogen Negative (Negative) 11/24/23 Unknown Ur Leukocyte Esterase Negative (Negative) 11/24/23 Unknown Adenovirus (PCR) Not Detected (NotDetected) 11/24/23 20:10 B. pertussis DNA (PCR) Not Detected (NotDetected) 11/24/23 20:10 B.parapertussis DNA PCR Not Detected (NotDetected) 11/24/23 20:10 C. pneumoniae DNA (PCR) Not Detected (NotDetected) 11/24/23 20:10 Coronavirus OC43 (PCR) Not Detected (NotDetected) 11/24/23 20:10 Coronavirus HKU1 (PCR) Not Detected (NotDetected) 11/24/23 20:10 Coronavirus 229E (PCR) Not Detected (NotDetected) 11/24/23 20:10 SARS-CoV-2 (PCR) Not Detected (NotDetected) 11/24/23 20:10 Coronavirus NL63 (PCR) Not Detected (NotDetected) 11/24/23 20:10 Human Metapneumovir PCR Not Detected (NotDetected) 11/24/23 20:10 Influenza Type A (PCR) Not Detected (NotDetected) 11/24/23 20:10 Influenza Type B (PCR) Not Detected (NotDetected) 11/24/23 20:10 M. pneumoniae (PCR) Not Detected (NotDetected) 11/24/23 20:10 Parainfluenza 1 (PCR) Not Detected (NotDetected) 11/24/23 20:10 Parainfluenza 2 (PCR) Not Detected (NotDetected) 11/24/23 20:10 Parainfluenza 3 (PCR) Not Detected (NotDetected) 11/24/23 20:10 Parainfluenza 4 (PCR) Not Detected (NotDetected) 11/24/23 20:10 RSV (PCR) Not Detected (NotDetected) 11/24/23 20:10 Entero/Rhino (PCR) Not Detected (NotDetected) 11/24/23 20:10 ECG Additional Comments: ECG. Sinus tachycardia to 101. No acute ST changes seen. Code Status & VTE Plan VTE Prophylaxis Plan VTE Prophylaxis will be ordered: Yes
[2023-11-25] MEDS ORDERED: ACETAMINOPHEN 325 MG TAB PO PRN (01:05)
[2023-11-25] MEDS ORDERED: POLYETHYLENE (MIRALAX) 17 GM PACK PO PRN (01:05)
[2023-11-25] MEDS ORDERED: NITROGLYCERIN SL 0.4 MG/TAB TAB SL PRN (01:05)
[2023-11-25] MEDS ORDERED: ALBUT/IPRATROP 3MG/0.5MG NEB 3 ML VIAL NEB PRN (01:05)
[2023-11-25] MEDS: ENOXAPARIN INJ 40 MG/0.4 ML SYR SQ SCH (01:39)
[2023-11-25 05:11] LABS: Hematocrit (blood only) 44.5 % (42.0-52.0); Hemoglobin 14.9 g/dl (14.0-18.0); Mean Corpuscular Hemoglobin 29.6 pg (25.0-34.0); Mean Corpuscular Hgb Conc 33.5 g/dL (32.0-36.0); Mean Corpuscular Volume 88.3 fL (80.0-100.0); Platelet Count 163 K/uL (130-400); RDW Coefficient of Variation 15.3 % (11.5-14.5); RDW Standard Deviation 49.4 fL (36.4-46.3); Red Blood Count 5.04 M/uL (4.70-6.10); White Blood Count 21.93 K/ul (4.8-10.8)
[2023-11-25 05:25] LABS: BUN Creatinine Ratio 22.6 (10-20); Calcium 8.9 mg/dl (8.6-10.3); Est GFR (African American) 76.4 ml/min; Magnesium 2.2 mg/dl (1.7-2.4); Potassium 4.5 mmol/L (3.5-5.1)
[2023-11-25 05:36] LABS: Basophils # (auto) 0.04 K/uL (0.00-0.20); Basophils % (auto) 0.2 %; Immature Granulocytes # (auto) 0.18 K/uL (0.01-0.20); Immature Granulocytes % (auto) 0.8 %; Lymphocytes # (auto) 0.51 K/uL (1.20-3.40); Lymphocytes % (auto) 2.3 %; Monocytes # (auto) 0.35 K/uL (0.11-0.59); Monocytes % (auto) 1.6 %; Neutrophils # (auto) 20.85 K/uL (1.40-6.50); Neutrophils % (auto) 95.1 %
--- NOTE | 2023-11-25 07:23 | XRay Report ---
XR chest 1V portable HISTORY: Dyspnea COMPARISON: Chest 07/07/2022. FINDINGS: No pneumothorax. No pleural effusions. The cardiac silhouette is normal in size. There are poststernotomy changes. Mild bibasilar interstitial thickening is noted. No evidence for pulmonary ed cortes. There are old, healed right posterior rib fractures again noted. Calcifications within the aorti c knob. Postoperative changes within the right shoulder. Small linear density within the right midlun g zone, unchanged. This may represent scarring. IMPRESSION: Mild bibasilar interstitial thickening. This could be due to vascular crowding from the low lung volu mes. A low-grade interstitial pneumonitis is not excluded. ACT 112: Negative or not required by law. Electronically signed by: Jerry Yeager M.D. 11/25/2023 7:21 AM
[2023-11-25] MEDS: ALBUT/IPRATROP 3MG/0.5MG NEB 3 ML VIAL NEB SCH (07:57)
--- NOTE | 2023-11-25 08:10 | Pulmonary Consultation ---
Date of Consultation November 25, 2023 Assessment & Plan (1) Bronchiectasis with (acute) exacerbation: (2) Hypoxia: (3) Asthma: (4) COPD (chronic obstructive pulmonary disease): (5) Chest pain: Plan IMPRESSION: 82-year-old male with significant past medical history of asthma, COPD, bronchiectasis, and chronic cough who presents to the hospital with complaints of worsening shortness of breath and productive cough and findings of possible RIGHT lower lobe infiltrative change on chest x-ray. Pulmonary medicine consulted for ongoing evaluation and management. RECOMMENDATIONS: 1. Bronchiectasis with exacerbation - Patient's symptoms seem to be more consistent with his underlying bronchiectasis diagnosis. His main complaints are productive cough which she reports is more of a cyclical pattern. He has been extensively evaluated in the outpatient setting including [facility] and most recently at a center [facility] excellence in [facility]. He uses his chest vest and albuterol nebulizers at home. Unfortunately, he did complete a lengthy course of prednisone recently in relationship to his symptoms, and as he has come off the medications, he is with worsening cough and shortness of breath. On exam, the patient is not bronchospastic at this time and does seem to have some RIGHT greater than left basilar crackles which likely lends itself to more parenchymal findings associated with bronchiectasis. That being said, given the chest x-ray findings, and lengthy symptoms that he has been experiencing over the last month or so, we will obtain CT of the chest to evaluate the lung parenchyma for other possible etiologies of the patient's worsening symptoms. Additionally, will obtain sputum cultures and AFB to assess for possible adventitious organisms. Will add chest physiotherapy as well as flutter valve and hypertonic saline. Patient should have hypertonic saline instituted on his home medications at the time of discharge as well. Patient with use of Trelegy at home. Will change him to Breo and Incruse at this time while inpatient. Will place the patient on Mucinex. Additionally, given the location of the infiltrative change and the patient's ongoing symptoms, will obtain swallow evaluation if able to assess for possible aspiration component of this. Unfortunately, I am not convinced this is something that will immediately improve, however we can certainly palpated the patient symptoms management moving forward. 2. Hypoxia - In the setting of bronchiectasis. Currently requiring 2 L nasal cannula. Increase pulmonary toileting. Titrate down supplemental oxygen as tolerated. 3. Asthma/COPD - Previous diagnosis made in the outpatient. On prior records, the patient did not have obstructive findings noted on his PFTs, however. That being said, we will not make changes to his baseline inhalers at this time as this has been managed by his outpatient specialists. Patient is not bronchospastic on exam at this point. Uncertain of the utility of current 3 times daily dosing of parenteral steroids. Will add a one-time daily dose now, but the patient can likely be transition to oral prednisone taper moving forward. 4. Chest pain - Certainly concerning in a patient with a history of coronary artery disease. Defer to primary service for completion of workup. Thank you for allowing us to participate in the care of this patient. Pulmonary medicine will follow along. Supervising Physician Co-Signing Physician Notes Patient seen and examined. EMR reviewed. Discussed with SHELBY and agree with assessment plan as noted. Patient is admitted with what sounds like an exacerbation of bronchiectasis. He was treated with steroids and antibiotics. Chest x-ray did not demonstrate any acute infiltrate. CT scan confirmed bronchiectasis. The patient is followed by a cook house supervisor in [place]. Has been seen in the [facility] system in the past. He states he has been on several courses of steroids in the outpatient setting but has never been treated with antibiotics. We do not have prior culture data available to review. This point time the patient does not appear bronchospastic. This appears to be an acute exacerbation of bronchiectasis. Will discontinue IV antibiotics and transition to oral Augmentin which she should complete for 7 days. No indication for steroids. Continue pulmonary toilet and clearance techniques. The patient does not use oxygen at home. Recommend assessment for supplemental oxygen with an ambulatory two-step and setting the patient up with supplemental oxygen if he qualifies. He will need to follow-up with his outpatient pulmonary providers to review culture data at discharge. Patient appears to be doing well and states he feels back to his pulmonary baseline. He can likely be dismissed from the hospital. Pulmonary will sign off. Feel free to contact us with questions or concerns History of Present Illness Reason for Consultation: copd ex recurent Requesting Physician: Dr. Del Rio Attending Physician: Aleah Bean MD History of Present Illness Patient is an 82-year-old male with a previously diagnosed history of asthma, COPD, bronchiectasis, and chronic cough who has been extensively evaluated through the [facility] and recently establish care with a institution of excellence in the [place] area. He reports his previous diagnosis of a sthma was several years ago and he was started on Advair. He had been changed to Trelegy and reports that during his recent visit with the bronchiectasis expert, he had a change in his medication, however he did not start it yet and is uncertain which medication it is. He uses albuterol HFA as needed as well as nebulizers when his symptoms worsen. He reports fluctuating symptoms of mostly productive cough, but states that he does develop shortness of breath as well. He had recently completed a lengthy prednisone taper recently in the setting of worsening productive cough. He was restarted on an additional prednisone taper within the last few days associated with his worsening cough, shortness of breath, chest tightness. His symptoms progressed which prompted visit to the emergency department. He underwent evaluation including chest x-ray and labs which did demonstrate a possible LEFT lower lobe infiltrative change. He received intravenous steroids as well as antibiotics in the form of Rocephin and azithromycin. He received intravenous steroids and scheduled dosing for steroids as well. Upon evaluation in room 4 5 81, the patient is awake, alert, and oriented. He reports that his symptoms of cough are worse throughout the day. They improve at night. He has had no fevers or chills. No unintentional weight loss. No hemoptysis. His symptoms are relatively cyclical. He states that he has undergone evaluation of his sputum and had undergone bronchoscopic evaluation within the last year which has been unremarkable. He states that his last CT was probably a year ago. He has had a history of pulmonary nodules which have been felt to be stable. He reports no history of connective tissue diseases, rheumatologic disorders, history of lung cancer, exposure to exotic plants, fish, birds, turtles, hot tubs, etc. 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 He reports a remote history of smoking 60 years ago. He carries a 10 pack history from that. Allergies Allergy/AdvReac Type Severity Reaction Status Date / Time Beta-Blockers AdvReac Mild History Verified 03/29/21 19:25 (Beta-Adrenergic Bloc intolerance as per records codeine AdvReac Mild N/V Verified 09/12/21 19:25 Home Medications Medication Instructions Recorded Confirmed Type sertraline 50 mg tablet (Zoloft) 50 mg PO QAM 10/31/18 11/25/23 History tamsulosin 0.4 mg capsule (Flomax) 0.4 mg PO HS 10/31/18 11/25/23 History albuterol sulfate 90 mcg/actuation 2 puff inhalation Q6H PRN 07/12/19 11/24/23 History aerosol inhaler Shortness Of Breath atorvastatin 80 mg tablet 80 mg PO HS 12/06/20 11/24/23 History cholecalciferol (vitamin D3) 25 25 mcg PO 3XWK 12/06/20 11/25/23 History mcg (1,000 unit) tablet (Vitamin D3) famotidine 20 mg tablet (Pepcid) 20 mg PO BID 12/06/20 11/24/23 History losartan 100 mg tablet 100 mg PO QAM 12/06/20 11/24/23 History aspirin 81 mg tablet,delayed 162 mg PO QPM 01/13/21 11/24/23 History release Lactobacillus acidophilus 10 10,000 mmu cells PO DAILY 05/26/22 11/25/23 History billion cell capsule (Probiotic) cetirizine 10 mg capsule (Zyrtec) 10 mg PO AMPM 05/26/22 11/25/23 History ezetimibe 10 mg tablet 10 mg PO QAM 05/26/22 11/24/23 History ipratropium 0.5 mg-albuterol 3 mg 3 ml inhalation Q4 PRN Shortness 05/26/22 11/24/23 History (2.5 mg base)/3 mL nebulization Of Breath Or Wheezing soln montelukast 10 mg tablet 10 mg PO HS 05/26/22 11/24/23 History spironolactone 25 mg tablet 25 mg PO QAM 05/26/22 11/24/23 History acetaminophen 500 mg tablet 500 mg PO Q4H PRN Pain 11/24/23 11/24/23 History dextran 70-hypromellose 1 applic OPB UD PRN Eye Irritation 11/24/23 11/24/23 History fluorouracil 0.5 % topical cream 1 applic topical HS 11/24/23 11/24/23 History furosemide 20 mg tablet 20 mg PO 3XWK 11/24/23 11/24/23 History ipratropium bromide 42 mcg (0.06 1 spray intranasal HS 11/24/23 11/24/23 History %) nasal spray levothyroxine 125 mcg tablet 125 mcg PO DAILYBB 11/24/23 11/24/23 History prednisolone acetate 1 % eye See Rx Instructions .Route .COMPLEX 11/24/23 11/25/23 History drops,suspension psyllium 0 tbsp PO DAILY 11/24/23 11/24/23 History triamcinolone acetonide 55 mcg 1 spray intranasal . NEEDED PRN 11/24/23 11/24/23 History nasal spray aerosol (Nasacort Congestion Allergy) budesonide 0.5 mg/2 mL suspension 0.5 mg inhalation Q12H 11/25/23 11/25/23 History for nebulization fluticasone fur. 200 mcg-umeclid 1 inh inhalation DAILY 11/25/23 11/25/23 History 62.5 mcg-vilant 25 mcg inhalat.powder (Trelegy Ellipta) verapamil 120 mg tablet,extended 120 mg PO QAM 11/25/23 11/25/23 History release Patient History Medical History (Updated 11/25/23 @ 08:22 by Juve Gillespie PAMaicoC) Mild persistent asthma Abnormal CT scan, chest Abdominal pain Ileus Post-ERCP acute pancreatitis Acute pancreatitis High serum chloride Leukocytosis CAD (coronary artery disease) CABG (2018) + stents (MARY to prox Lcx, MARY x2 to mid LAD- 2018) Afib post-op CABG, no known recurrences per pt Hypokalemia Clostridium difficile carrier History of Graves' disease Hypothyroidism BPH (benign prostatic hyperplasia) History of pulmonary embolism 2010, AC since discontinued Skin cancer Prostate cancer S/P seed implant COPD (chronic obstructive pulmonary disease) Asthma Hypertension Surgical History History of cardiac cath CABG (2018) + stents (MARY to prox Lcx, MARY x2 to mid LAD- 2018) History of cholecystectomy Lap cholecystectomy, open repair of umbilical hernia (12/09/2020): Grade 2 view, MAC #3, ETT 7.5 at [facility] Status post double vessel coronary artery bypass CABG (2019) History of vasectomy History of thyroidectomy, total History of cystoscopy History of colonoscopy with polypectomy History of malignant melanoma of skin Back, eyelid History of basal cell carcinoma (BCC) excision History of hernia repair History of eye surgery Status post operation on nasal sinus 2002 H/O rotator cuff surgery History of appendectomy Family History Father Cancer Prostate and bladder Mother Stroke Breast cancer Social History Smoking Status: Former smoker Tobacco Type: Cigarettes Age Quit Using Tobacco: 27; Smoking End Date: quit 60 years ago; Second Hand Exposure: No; Do You Dip or Chew Tobacco: No; Tobacco Cessation Education Requested by Patient: No Hx Alcohol Use: Yes Alcohol type: hard liquor Alcohol Intake Frequency Comment: 1-2 drinks per day Hx Substance Use: No Preferred Language: Occitan Communication Ability: Effective It Operations Specialist Required: No Beliefs That Will Affect Care: None marital status: Current Living Situation: Spouse current occupational status: retired current occupation: Retired Feels Safe at Home: Yes Safety Concerns: Feels Safe At This Time Assistive Devices: Glasses Review of Systems Review of Systems: A complete 10 point review of systems was reviewed with the patient with pertinent positives and negatives as per history of present illness. All else were negative. Physical Exam Physical Exam: VITAL SIGNS - Vital signs and nursing notes were reviewed. GENERAL - 82-year-old male appearing his stated age who is in no acute distress. Communicates well with provider and answers questions appropriately. SKIN - Without rashes or lesions. NOSE - Midline and without cyanosis. MOUTH/OROPHARYNX - Without perioral cyanosis. NECK - Neck with FROM. LUNGS - Chest wall evaluation demonstrates a normal chest wall A:P diameter. Auscultation reveals faint bibasilar Rales RIGHT greater than left without wheezes appreciated. CARDIAC - RRR with S1/S2. No murmur, rubs, or gallops appreciated. ABDOMEN - Abdominal inspection demonstrates a ventral hernia. BS normoactive all four quadrants. No tenderness, palpable masses, or ascites noted. EXTREMITIES - Nail clubbing not present. No peripheral cyanosis. No pretibial edema present. +3/5 radial palpated throughout. PSYCH - A&Ox3 and cooperates fully with examiner. Pt is very pleasant and interacts well with examiner. Results & Data Results & Data Vital Signs (Past 12 Hours) Vital Signs Temp Pulse Pulse Resp BP BP Pulse Ox 11/25/23 08:00 58 L 20 91 11/25/23 07:35 88 11/25/23 01:26 11/25/23 01:07 36.5 C 86 20 149/68 H 93 11/25/23 01:05 11/25/23 00:45 83 18 134/71 93 11/24/23 23:52 36.9 C 11/24/23 23:42 105 H 11/24/23 22:30 94 H 18 162/83 H 94 11/24/23 22:16 36.8 C 77 18 135/73 92 Pulse Ox O2 Del Method O2 Del Method O2 Flow Rate O2 Flow Rate 11/25/23 08:00 Nasal Cannula 2 11/25/23 07:35 11/25/23 01:26 Nasal Cannula 2 11/25/23 01:07 Nasal Cannula 2 11/25/23 01:05 93 Nasal Cannula 2 11/25/23 00:45 Nasal Cannula 2 11/24/23 23:52 11/24/23 23:42 11/24/23 22:30 Room Air, Nasal Cannula 2 11/24/23 22:16 Nasal Cannula 2 PG Care Time/CCT Total # of Minutes Spent Total Time Spent with Patient: Total time spent is greater than 50% in coordination of care (as documented) at patient's floor/unit and/or counseling patient: Coding Level of Care Code 40143 INT INP/OBS CARE 375MIN Diagnoses Bronchiectasis with (acute) exacerbation J47.1 Hypoxia R09.02 Asthma J45.909 COPD (chronic obstructive pulmonary disease) J44.9 Chest pain R07.9
[2023-11-25] MEDS ORDERED: methylPREDNISolone 125 MG/2 ML VIAL IV SCH (09:00)
[2023-11-25] MEDS ORDERED: methylPREDNISolone 40 MG in SYRINGE 0 ML IV SCH (09:00)
--- OUTSIDE RECORDS SUMMARY | 2023-11-25 09:23 | External Medical Summary | Summary of Care ---
Author Name Unknown Organization [facility] Address [address] [place] [address] Phone [phone] Care Team Providers Care Veneer Stacker Name Role Phone Donn Clarke MD Primary Care Provider + Encounter Details Date Type Department Care Team (Late st Contact Info) Description 11/08/2023 Orders Only Laboratory, [facility] [address] [place] [address] Tacho Espinoza MD [address] [place] [address] Bronchiectasis (HCC)* Allergies Active Allergy Reactions Criticality Noted Date Comments Lorazepam Low 07/27/2019 Codeine Nausea/vomiting Low 10/31/2018 Pollen Wheezing,Cough Low 11/30/2016 documented as of this encounter (statuses as of 11/08/2023) Medications Medication Sig Dispensed Refills Start Date End Date Status ACETAMINOPHEN 500 MG PO TABS Take 1 Tablet by mouth every 4 hours as needed for Pain. Do not take more then 3000 mg in a 24 hr period. 0 Active Dextran 70-Hypromellose 0.1-0.3 % Ophthalmic Solution Instill into eye as needed. 0 Active Probiotic Capsule Take 1 Cap by mouth daily. 0 11/02/2018 Active aspirin enteric coated 81 MG TBECIndications:Coron myra atherosclerosis of [place] coronary artery Take 2 Tabs by mouth daily. 100 Tab 3 07/22/2019 Active Additional Information Patient taking differently: 81 mgOralDAILY(1900), Reported on 11/10/2022 Vitamin D 25 MCG (1000 UT) Oral Tablet Take 1 Tablet by mouth once a day on Tuesday, Tuesday, and Tuesday only. 0 11/03/2020 Active Metamucil 28.3 % Oral Powder (Psyllium) Take by mouth daily. 0 Active Albuterol Sulfate HFA 108 (90 Base) MCG/ACT Inhalation Aerosol SolutionIndications:M oderate persistent asthma without complication Inhale by mouth 2 Puffs every 6 hours as needed for Shortness of Breath. 18 g 5 08/21/2021 Active Additional Information Patient taking differently:2 Puff Inhalation Q6H PRN, Shortness of Breath,Indications: COPD/breathing, Reported on 09/03/2022 Fluorouracil 5 % External Cream (Efudex)Indications:A ctinic keratosis apply to affected areas of face/scalp nightly for 2-3 weeks 40 g 1 10/03/2022 Active Spironolactone 25 MG Oral Tablet (Aldactone) Take one-half Tablet by mouth in the morning. 50 Tablet 3 01/20/2023 Active prednisoLONE Acetate 1 % Ophthalmic Suspension (Pred Forte) PLACE 5 DROPS IN 8 OZ OF SALINE NASAL SOLUTION (DISTILLED WATER AND SALT) USE STERIOD/SALT/WATE R IRRIGATIONS TWICE PER DAY TO FLUSH NASAL/SINUS CAVITY NOT FOR USE IN EYES 45 mL 3 01/14/2023 4 Active Additional Information Patient not taking.Reported on 08/26/2023 Verapamil HCl ER 120 MG Oral Tablet Extended Release (Isoptin SR)Indications:[place] ry atherosclerosis of [place] coronary artery,PAF (paroxysmal atrial fibrillation) (HCC),HTN, goal below 140/90 TAKE ONE TABLET BY MOUTH EVERY MORNING 90 Tablet 4 12/02/2022 4 Active Sertraline HCl 50 MG Oral Tablet (Zoloft)Indications:M oderate major depression (HCC) TAKE ONE TABLET BY MOUTH EVERY DAY 100 Tablet 3 03/24/2023 4 Active Ezetimibe 10 MG Oral Tablet (Zetia)Indications:Dy slipidemia, goal LDL below 70 TAKE ONE TABLET BY MOUTH EVERY MORNING 90 Tablet 3 03/24/2023 4 Active Montelukast Sodium 10 MG Oral Tablet (Singulair)Indication s:Moderate persistent asthma without complication TAKE 1 TABLET BY MOUTH EVERYDAY AT BEDTIME 90 Tablet 1 05/10/2023 Active Atorvastatin Calcium 80 MG Oral Tablet (Lipitor)Indications: Dyslipidemia, goal LDL below 70 TAKE ONE TABLET BY MOUTH EVERY DAY 90 Tablet 3 05/24/2023 4 Active Triamcinolone Acetonide 55 MCG/ACT Nasal Aerosol (Nasacort Allergy 24HR) Administer 1 [place] into each nostril daily as needed. 0 Active Ipratropium-Albuterol 0.5-2.5 (3) MG/3ML Inhalation Solution (Duoneb)Indications:D OE (dyspnea on exertion),Acute cough INHALE THE CONTENTS OF ONE VIAL VIA NEBULIZER EVERY 4 HOURS NEEDED FOR SHORTNESS OF BREATH AND OR WHEEZING 1620 mL 0 06/14/2023 4 Active Famotidine 20 MG Oral Tablet (Pepcid)Indications:G astroesophageal reflux disease TAKE ONE TABLET BY MOUTH TWICE A DAY 180 Tablet 3 06/21/2023 4 Active Losartan Potassium 100 MG Oral Tablet (Cozaar)Indications:H TN, goal below 140/90 TAKE ONE TABLET BY MOUTH EVERY DAY 100 Tablet 3 07/06/2023 4 Active Ipratropium [place] 0.06 % Nasal Solution (Atrovent) Administer 1 [place] into each nostril at bedtime. 45 mL 3 08/17/2023 Active Tamsulosin HCl 0.4 MG Oral Capsule (Flomax)Indications:B PH without obstruction/lower urinary tract symptoms TAKE ONE CAPSULE BY MOUTH AT BEDTIME 90 Capsule 2 09/01/2023 Active Fluticasone-Salmetero l 500-50 MCG/ACT Inhalation Aerosol Powder Breath Activated (Advair Diskus) INHALE ONE PUFF BY MOUTH EVERY MORNING AND ONE PUFF BEFORE BEDTIME 60 Each 12 09/05/2023 5 Active Amoxicillin-Pot Clavulanate 875-125 MG Oral Tablet (Augmentin) Take 1 Tablet by mouth in the morning and 1 Tablet before bedtime. 20 Tablet 0 09/05/2023 Active Levothyroxine Sodium 125 MCG Oral Tablet (Levoxyl)Indications: Postoperative hypothyroidism Take 1 Tablet by mouth daily first thing in the morning. (at least 30 min prior to breakfast or other meds) 90 Tablet 1 10/13/2023 Active Hospital, Clinic, or Other Facility Administered Medication Ordered Dose Route Frequency Start Date End Date Status methacholine (0 mg/mL) [place] (Provocholine) inhalation solution 3 mLIndications:Shortness of breath 3 mL IN ONCE PRN 07/14/2022 Active documented as of this encounter (statuses as of 11/08/2023) Active Problems Problem Noted Date Diagnosed Date Dyslipidemia, goal LDL below 70 08/19/2023 Bronchiectasis without complication 01/12/2023 History of osteoporosis 10/20/2021 PAF (paroxysmal atrial fibrillation) 10/20/2021 MGUS (monoclonal gammopathy of unknown significa nce) 04/15/2021 Postoperative hypothyroidism 10/13/2020 S/P CABG x 2 07/14/2019 Gastroesophageal reflux disease without esophagi tis 01/24/2019 Mixed hyperlipidemia 01/24/2019 Mild depression 01/24/2019 S/P angioplasty with stent 12/12/2018 Overview: 2 vessel disease, 3 MARY 11/2018 - 2. Successful PCI of proximal circumflex with single drug-eluting stent (3.0 x 15 mm Vinod). 3. Successful PCI of ostial to mid LAD with 2 overlapping drug-eluting stents (3.0 x 34, 2.5 x 12 mm [place]). History of prostate cancer 12/01/2017 History of pulmonary embolism 06/02/2017 Hx of actinic keratosis 09/03/2016 Beta-blockers contraindicated 10/17/2014 Overview: HR controlled Asthma, moderate persistent 02/10/2011 HTN, goal below 140/90 01/21/2010 HX-SKIN MALIGNANCY NEC - multiple BCC 09/29/2009 Overview: BCCs: -2005 L neck -2006 L ala, R flank, L cheek, midback -2007 L upper back, R deltoid -2011 R cheondoism -2012 R temporal scalp -02/2014 BCC L chest -11/2018 BCC R medrano upper HX-MALIG SKIN MELANOMA - 2006 0.56 R post. 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, Hx melanoma in 2006, 0.56 mm on the Right neck; also hx MIS right midback 02/2014; L lower eyelid MIS 02/2018 Coronary atherosclerosis of [place] coronary estella ry 05/16/2007 BPH without obstruction/lower urinary tract symp toms 08/03/2002 Chronic rhinitis 08/03/2002 documented as of this encounter (statuses as of 11/08/2023) Resolved Problems Problem Noted Date Diagnosed Date Resolved Date Age-related osteoporosis wit hout current pathological fracture 10/03/2019 10/20/2021 Urinary retention 07/22/2019 10/20/2021 Postoperative anemia due to acute blood loss 9 10/03/2019 Unstable angina 07/13/2019 07/27/2019 Acquired hypothyroidism 05/05/2018 04/0 11/2021 Hypothyroid 04/18/2014 05/05/2018 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 12/01/2017 Mixed hearing loss, unspecified 10/12/2012 12/01/2017 Pancreatic duct dilated 07/26/2012 02/0 08/2023 Iatrogenic pulmonary embolism and infarction 1 06/02/2017 Bilateral PE 02/08/2011 06/02/2017 HX-MALIG SKIN MELANOMA 2006, 0.56mm R neck 04/01/2010 04/01/2010 Dyslipidemia, goal LDL below 100 06/24/2009 06/02/2017 Overview: Per Lipid Taxonomy. Benign neoplasm of colon 08/22/2008 Overview: hyperplastic polyps & lympoid aggregate, recommend f/u 3 years Benign neoplasm of colon 08/22/200801/2010 Overview: hyperplastic polyps & lympoid aggregate, recommend f/u 3 years [employer] Other*[id number] 06/05/2007 08/24/2016 Overview: Study Title: Genomic Markers for Patients with Cardiovascular Disease Project # [id number] Health Nurse: Aretha Rodríguez MD [phone] Coronary atherosclerosis of [place] coronary artery 05/16/2007 07/27/2019 ADVANCE DIRECTIVE INFORMATION 04/21/2007 06/02/2017 Overview: Yes, Patient instructed to provide copy of advance directive for provider to review and to be scanned into Electronic Medical Record Polyp of nasal cavity 11/25/20042017 Asthma with severity to be determined 09/03/2003 09/14/2010 Overview: ICD-10 update of inactive term Elevated prostate specific antigen (PSA) 08/30/2002 03/04/2009 erectile dysfunction 08/30/2002 019 HYPERTENSION NOS 08/03/2002 01/21/2010 Overview: Modified per HTN protocol #16. TOX DIF GOITER NO CRISIS 08/03/200203/2019 Dyslipidemia, goal to be determined 08/03/2002 06/24/2009 Overview: Per Lipid Taxonomy. documented as of this encounter (statuses as of 11/08/2023) Immunizations Name Administration Dates Next Due COVID-19 mRNA, LNP-s, No Pre serve, 2-Dose Series ([employer]) 10/21/2021,04/20/2021,09/23/2020,08/25 COVID-19, LNP-s, No Preserve , Justyn-sucrose, Ages 12+ (Pfizer) 10/21/2021 COVID-19, MRNA-LNP, 23-24, P F, 30 MCG/0.3 mL, 12 YRS AND ABOVE, IM (PFIZER-Comirnaty) 04/12/2023 Covid-19, Mrna, Lnp-s, Pf, B ivalent, 30 Mcg, IM, 12 yrs and above ([employer]) 04/07/2022 Pneumococcal Conjugate Vacc, 13 Valent (Prevnar) 10/17/2014 Pneumococcal Polysaccharide PPV23 (Pneumovax) 07/30/2011 Season Influenza, Quad, PF, Adjuvanted, 65+ Yrs, IM (FLUAD) 04/01/2020 Seasonal Influenza Virus Vac cine, Unspecified Formulation 04/01/2020,03/27/2019,03/31/2018,03/23,04/01/2016,04/02/2015,03/26/2014 ,04/17/2013,04/13/2012,04/20/2011,01/2010,05/06/2009,05/28/2008, 7,04/26/2006,05/30/2003,06/04/2002 Seasonal Influenza, PF, 6 M & above, IM , (FluLaval or Fluzone) 03/27/2019,03/31/2018 Seasonal Influenza, Quadriva lent Hd (Fluzone Hd) 04/05/2023,03/23/2022,04/15/2021 Seasonal Influenza, Quadriva lent, No Preserve, IM 03/23/2022,04/15/2021,04/01/2020,03/27,03/31/2018,03/23/2017,04/01/2016 ,04/02/2015,03/26/2014,04/17/2013,03/19,04/20/2011,04/23/2010, 9,05/28/2008,04/12/2007,04/26/2006,,06/04/2002 Seasonal Influenza, Split, I IV3, With Preserve, Inj 04/02/2015,03/26/2014,04/17/2013,04/13,04/20/2011,04/23/2010,05/06/2009 ,05/28/2008,04/12/2007,04/26/2006 TD - Tetanus/Diptheria (ADULT) 10/25/2007 TDAP (age 10 and older)(Boostrix) 08/20/2013 Varicella Zoster Vaccine (Adult) 10/19/2010 Zoster Vaccine Recombinant (Shingrix) 03/31/2018 ,01/13/2018,10/19/2010 documented as of this encounter Social History Tobacco Use Types Packs/Day Years Used Date Smoking Tobacco: Former Cigarettes 1 25 1 961 - 07/18/1970 Passive Smoke Exposure: Never Smokeless Tobacco: Former Quit: 1970 Alcohol Use Standard Drinks/Week Comments Yes 5 (1 standard drink = 0.6 oz pur e alcohol) one drink a night AUDIT-C Answer Date Recorded Frequency of Alcohol Consumption 4 or more times a week 05/01/2020 Average Number of Drinks 1 or 2 020 Frequency of Binge Drinking Not asked 04/17 PHQ-2 Answer Date Recorded PHQ Adult Total Score 0 03/23/2023 Hunger Vital Sign Answer Date Recorded Within the past 12 months, y ou worried that your food would run out before you got the money to buy more. Never true 03/23/20 23 Within the past 12 months, t he food you bought just didn't last and you didn't have money to get more. Never true 03/23/2023 Sex and Gender Information Value Date Recorded Sex Assigned at Male 12/12/2018 10:53 AM EDT Gender Identity Male 12/12/2018 10:53 AM EDT Sexual Orientation Straight 12/12/2018 10 :53 AM EDT Job Start Date Occupation Industry Not on file Not on file Not on file documented as of this encounter Functional Status Functional Status Response Date of Assess ment Are you deaf or do you have serious difficulty h earing? No 07/14/2019 Are you blind or do you have serious difficulty seeing, even when wearing glasses? No 07/14/2019 Do you have serious difficul ty walking or climbing stairs? (5 years old or older) No 07/16/2019 Do you have difficulty dress ing or bathing? (5 years old or older) No 07/14/2019 Because of a physical, menta l, or emotional condition, do you have difficulty doing errands alone such as visiting a doctor s office or shopping? (15 years old or older) No 07/14/20 19 Cognitive Status Response Date of Assessm ent Because of a physical, menta l, or emotional condition, do you have serious difficulty concentrating, remembering, or making decisions? (5 years old or older) No 07/14/2019 documented as of this encounter Plan of Treatment Upcoming Encounters Date Type Department Care Team (Late st Contact Info) Description 11/17/2023 1:30 PM EDT Office Visit Cardiology, [facility] [address] [address] Jonnathan Song PA-C [address] [address] 12/08/2023 3:30 PM EDT Office Visit Dermatology [facility] [address] [place] [address] Ama Galvez MD [address] [facility] [place] [address] 02/15/2024 10:00 AM EDT Laboratory Laboratory, [facility] [address] [facility] [place] [phone] [facility] [address] [place] [address] 02/22/2024 2:30 PM EDT Office Visit Hematology/Oncology [facility] [address] [place] [phone] Smita Miller MD [address] [facility] [place] [address] 02/24/2024 9:20 AM EDT Office Visit General Internal Medicine [facility] [address] [facility] [place] [place] [address] Donn Clarke MD [address] [facility] [place], [place] [address] 03/26/2024 10:30 AM EDT Nurse Only Ancillary [facility] [address] [facility] [place] [address] [facility], Nurse Annual Wellness [facility] [address] [facility] [place] [address] Pending Results Name Type Priority Associated Diagnoses Date /Time CULTURE, RESPIRATORY, LOWER, AEROBIC Lab Routine Bronchiectasis (HCC) 11/08/2023 11:34 AM EDT Scheduled Orders Name Type Priority Associated Diagnoses Orde r Schedule CULTURE, RESPIRATORY, LOWER, AEROBIC Lab Routine Bronchiectasis (HCC) Expected: 11/08/2023, Expires: 11/07/2024 Scheduled Procedures Name Priority Associated Diagnoses Date/Ti me COLONOSCOPY FLEXIBLE PROXIMAL DIAGNOSTIC Recall History of colon polyps Health Maintenance Due Date Last Done Comments DXA Scan 01/27/2023 01/28/2020, 03/13/2008 DTaP,Tdap,and Td Vaccines (2 - Td or Tdap) 08/20/2023 08/20/2013, 10/25/2007 GFR 08/19/2024 08/19/2023, 08/0 02/2023, 12/02/2022, Additional history exists TSH 11/03/2024 11/04/2023, 09/16, 09/15/2023, Additional history exists Albumin/Creatinine Ratio 04/22/2025 022, 04/25/2015, 04/29/2014 COLONOSCOPY-EVERY 5 YRS AGES 18-100 08/11/2025 08/11/2020, 08/11/2020, 11/03/2016, Additional history exists Pneumococcal Vaccine: 65+ Years Completed 10/17/2014, 07/30/2011, 09/04/2004 Zoster Vaccines Completed 03/31/2018, 12/17, 10/19/2010, Additional history exists COLONOSCOPY-EVERY 3 YRS AGES 18-100 Discontinued 08/11/2020, 08/11/2020, 11/03/2016, Additional history exists Influenza Vaccine (FLU shot) Completed 04/05/2023, 03/23/2022, 03/23/2022, Additional history exists COVID-19 Vaccine Completed 04/12/2023, , 10/21/2021, Additional history exists GARDASIL-HPV IMMUNIZATION SERIES Aged Out No longer eligible based on patient's age to complete this topic Hepatitis B Aged Out No longer eligi ble based on patient's age to complete this topic MENINGOCOCCAL (MENACTRA/MENVEO) Aged Out No longer eligible based on patient's age to complete this topic documented as of this encounter Medical Devices Implanted Type Area Biometrics Instructor Device Identifier Shelf Expiration Date Model / Serial / Lot Piston Smart .6x4.25 [id number] - [id number] Implanted:Qty : 1 on 06/26/2013 at OR [facility] [place] Left: Ear GYRUS : ENT 05/17/2022 [id number] / / [id number] Suture Steel 6 B&S19 [id number] - [id number] Implanted:Qty : 4 on 07/14/2019 by Genesis Rea MD at OR [facility] [place] N/A: Sternum JNDevyn : [employer] 03/17/2024 [id number] / / [id number] documented as of this encounter Visit Diagnoses Diagnosis Bronchiectasis (HCC)- Primary Bronchiectasis without acute exacerbation documented in this encounter Advance Directives Latest Code Status on File Code Status Date Activated Date Inactivated Comments Full Code 07/14/2019 12:51 PM 07/22/2019 6:22 PM This order reflects the patients wishes and were consensually agreed upon. Code Status History Code Status Date Activated Date Inactivated Comments Full Code 07/13/2019 6:28 PM 07/14/2019 12:50 PM Th is order reflects the patients wishes and were consensually agreed upon. Question Answer Comments Discussion of Advance Directives occurred with: Patient Full Code 06/26/2013 11:29 AM 06/26/2013 10:13 PM T his order reflects the patients wishes and were consensually agreed upon. Care Teams Veneer Stacker Relationship Specialty Start Date End Date Donn Clarke MD [address] [facility] [place] [address] PCP - General Internal Medicine 12/17/15 documented as of this encounter
--- OUTSIDE RECORDS SUMMARY | 2023-11-25 09:23 | External Medical Summary | Summary of Care ---
Author Name Unknown Organization [facility] Address [address] [place] [address] Phone [phone] Care Team Providers Care Chief [employer] Name Role Phone Donn Clarke MD Primary Care Provider + Reason for Visit * Reason Comments Follow Up 6 month follow up. E very now and then becomes SOB like after heart surgery- when starting to exert self like getting up to walk it will occur quickly. Edema in left leg on occasion. Chest tightness at times- seems related to seasonal allergies. Denies chest pain, palpitations and dizziness. Encounter Details Date Type Department Care Team (Latest Contact Info) Description 11/17/2023 1:30 PM EDT Office Visit Cardiology, [facility] [address] [place] [id number] Jonnathan Song PA-C [address] [place] [id number] HTN, goal below 140/90*; Heart failure, diastolic, with acute decompensation (HCC); ASCVD (arteriosclerotic cardiovascular disease); S/P CABG x 2; SOB (shortness of breath); Peripheral edema Allergies Active Allergy Reactions Criticality Noted Date Comments Lorazepam Low 07/27/2019 Codeine Nausea/vomiting Low 10/31/2018 Pollen Wheezing,Cough Low 11/30/2016 documented as of this encounter (statuses as of 11/18/2023) Medications Medication Sig Dispensed Refills Start Date End Date Status ACETAMINOPHEN 500 MG PO TABS Take 1 Tablet by mouth every 4 hours as needed for Pain. Do not take more then 3000 mg in a 24 hr period. 0 Active Dextran 70-Hypromellose 0.1-0.3 % Ophthalmic Solution Instill into eye as needed. 0 Active Probiotic Capsule Take 1 Cap by mouth daily. 0 11/03/19 19 Active aspirin enteric coated 81 MG TBECIndications:Cor onary atherosclerosis of nulato coronary artery Take 2 Tabs by mouth daily. 100 Tab 3 07/22/19 20 Active Additional Information Patient taking differently: 81 mgOralDAILY(1900), Reported on 11/10/2022 Vitamin D 25 MCG (1000 UT) Oral Tablet Take 1 Tablet by mouth once a day on Tuesday, Tuesday, and Tuesday only. 0 11/04/19 21 Active Metamucil 28.3 % Oral Powder (Psyllium) Take by mouth daily. 0 Active Albuterol Sulfate HFA 108 (90 Base) MCG/ACT Inhalation Aerosol SolutionIndications :Moderate persistent asthma without complication Inhale by mouth 2 Puffs every 6 hours as needed for Shortness of Breath. 18 g 5 08/21/19 22 Active Additional Information Patient taking differently:2 Puff Inhalation Q6H PRN, Shortness of Breath,Indications: COPD/breathing, Reported on 09/03/2022 Fluorouracil 5 % External Cream (Efudex)Indications :Actinic keratosis apply to affected areas of face/scalp nightly for 2-3 weeks 40 g 1 10/04/19 23 Active prednisoLONE Acetate 1 % Ophthalmic Suspension (Pred Forte) PLACE 5 DROPS IN 8 OZ OF SALINE NASAL SOLUTION (DISTILLED WATER AND SALT) USE STERIOD/SALT/WA TER IRRIGATIONS TWICE PER DAY TO FLUSH NASAL/SINUS CAVITY NOT FOR USE IN EYES 45 mL 3 01/15/20 23 024 Active Additional Information Patient not taking.Reported on 08/26/2023 Verapamil HCl ER 120 MG Oral Tablet Extended Release (Isoptin SR)Indications:Donell nary atherosclerosis of nulato coronary artery,PAF (paroxysmal atrial fibrillation) (HCC),HTN, goal below 140/90 TAKE ONE TABLET BY MOUTH EVERY MORNING 90 Tablet 4 12/03/19 23 024 Active Sertraline HCl 50 MG Oral Tablet (Zoloft)Indications :Moderate major depression (HCC) TAKE ONE TABLET BY MOUTH EVERY DAY 100 Tablet 3 03/24/20 23 024 Active Ezetimibe 10 MG Oral Tablet (Zetia)Indications: Dyslipidemia, goal LDL below 70 TAKE ONE TABLET BY MOUTH EVERY MORNING 90 Tablet 3 03/24/20 23 024 Active Montelukast Sodium 10 MG Oral Tablet (Singulair)Indicati ons:Moderate persistent asthma without complication TAKE 1 TABLET BY MOUTH EVERYDAY AT BEDTIME 90 Tablet 1 05/10/20 23 Active Additional Information Patient not taking.Reported on 11/17/2023 Atorvastatin Calcium 80 MG Oral Tablet (Lipitor)Indication s:Dyslipidemia, goal LDL below 70 TAKE ONE TABLET BY MOUTH EVERY DAY 90 Tablet 3 05/24/20 23 024 Active Triamcinolone Acetonide 55 MCG/ACT Nasal Aerosol (Nasacort Allergy 24HR) Administer 1 Cable into each nostril daily as needed. 0 Active Ipratropium-Albuter ol 0.5-2.5 (3) MG/3ML Inhalation Solution (Duoneb)Indications :ALEXANDER (dyspnea on exertion),Acute cough INHALE THE CONTENTS OF ONE VIAL VIA NEBULIZER EVERY 4 HOURS NEEDED FOR SHORTNESS OF BREATH AND OR WHEEZING 1620 mL 0 06/14/20 23 024 Active Famotidine 20 MG Oral Tablet (Pepcid)Indications :Gastroesophageal reflux disease TAKE ONE TABLET BY MOUTH TWICE A DAY 180 Tablet 3 06/21/20 23 024 Active Losartan Potassium 100 MG Oral Tablet (Cozaar)Indications :HTN, goal below 140/90 TAKE ONE TABLET BY MOUTH EVERY DAY 100 Tablet 3 07/06/20 23 024 Active Ipratropium Foxworth 0.06 % Nasal Solution (Atrovent) Administer 1 Cable into each nostril at bedtime. 45 mL 3 08/17/19 24 Active Tamsulosin HCl 0.4 MG Oral Capsule (Flomax)Indications :BPH without obstruction/lower urinary tract symptoms TAKE ONE CAPSULE BY MOUTH AT BEDTIME 90 Capsule 2 09/01/19 24 Active Levothyroxine Sodium 125 MCG Oral Tablet (Levoxyl)Indication s:Postoperative hypothyroidism Take 1 Tablet by mouth daily first thing in the morning. (at least 30 min prior to breakfast or other meds) 90 Tablet 1 10/13/19 24 Active Cetirizine HCl 10 MG Oral Tablet (ZyrTEC Allergy) Take 1 Tablet by mouth in the morning and 1 Tablet before bedtime. 0 Active Trelegy Ellipta 200-62.5-25 MCG/ACT Aerosol Powder Breath Activated Inhale 1 Puff by mouth daily. 0 Active Spironolactone 25 MG Oral Tablet (Aldactone)Indicati ons:HTN, goal below 140/90,Heart failure, diastolic, with acute decompensation (HCC),SOB (shortness of breath),Peripheral edema Take 1 Tablet by mouth in the morning. 100 Tablet 3 11/17/19 24 Active Furosemide 20 MG Oral Tablet (Lasix)Indications: HTN, goal below 140/90,Heart failure, diastolic, with acute decompensation (HCC),SOB (shortness of breath),Peripheral edema Take 1 Tablet by mouth once a day on Tuesday, Tuesday, and Tuesday only. 12 Tablet 5 11/18/19 24 Active Spironolactone 25 MG Oral Tablet (Aldactone) Take one-half Tablet by mouth in the morning. 50 Tablet 3 01/21/20 23 024 Discontinued Fluticasone-Salmete rol 500-50 MCG/ACT Inhalation Aerosol Powder Breath Activated (Advair Diskus) INHALE ONE PUFF BY MOUTH EVERY MORNING AND ONE PUFF BEFORE BEDTIME 60 Each 12 09/05/19 24 024 Discontinued(Me dication/Dose Changed) Amoxicillin-Pot Clavulanate 875-125 MG Oral Tablet (Augmentin) Take 1 Tablet by mouth in the morning and 1 Tablet before bedtime. 20 Tablet 0 09/05/19 24 024 Discontinued(En d of Procedure) Hospital, Clinic, or Other Facility Administered Medication Ordered Dose Route Frequency Start Date End Date Status methacholine (0 mg/mL) PLACEBO (Provocholine) inhalation solution 3 mLIndications:Shortness of breath 3 mL IN ONCE PRN 07/14/2022 Active documented as of this encounter (statuses as of 11/18/2023) Active Problems Problem Noted Date Diagnosed Date [...] single drug-eluting stent (3.0 x 15 mm S[place]). 3. Successful PCI of ostial to mid LAD with 2 overlapping drug-eluting stents (3.0 x 34, 2.5 x 12 mm Vinod). History of prostate cancer 12/01/2017 History of pulmonary embolism 06/02/2017 Hx of actinic keratosis 09/03/2016 Beta-blockers contraindicated 10/17/2014 Overview: HR controlled Asthma, moderate persistent 02/10/2011 HTN, goal below 140/90 01/21/2010 HX-SKIN MALIGNANCY NEC - multiple BCC 09/29/2009 Overview: BCCs: -2005 L neck -2006 L ala, R flank, L cheek, midback -2007 L upper back, R deltoid -2011 R zoroastrian -2012 R temporal scalp -02/2014 BCC L chest -11/2018 BCC R medrano upper HX-MALIG SKIN MELANOMA - 2005 0.56 R post. 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, Hx melanoma in 2005, 0.56 mm on the Right neck; also hx MIS right midback 02/2014; L lower eyelid MIS 02/2018 Coronary atherosclerosis of nulato coronary estella ry 05/16/2007 BPH without obstruction/lower urinary tract symp toms 08/03/2002 Chronic rhinitis 08/03/2002 documented as of this encounter (statuses as of 11/18/2023) Resolved Problems Problem Noted Date Diagnosed Date Resolved Date Age-related osteoporosis wit hout current pathological fracture 10/03/2019 10/20/2021 Urinary retention 07/22/2019 10/20/2021 Postoperative anemia due to acute blood loss 9 10/03/2019 Unstable angina 07/13/2019 07/27/2019 Acquired hypothyroidism 05/05/2018 04/0 11/2021 Hypothyroid 04/18/2014 05/05/2018 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 12/01/2017 Mixed hearing loss, unspecified 10/12/2012 12/01/2017 Pancreatic duct dilated 07/26/2012 02/08/2023 Iatrogenic pulmonary embolism and infarction 1 06/02/2017 [...] recommend f/u 3 years [employer] Other*[id number] 06/05/2007 08/24/2016 Overview: Study Title: Genomic Markers for Patients with Cardiovascular Disease Project # [id number] [place]per[place] Counselor: Aretha Rodríguez MD [phone] Coronary atherosclerosis of nulato coronary artery 05/16/2007 07/27/2019 ADVANCE DIRECTIVE INFORMATION [...] as of this encounter (statuses as of 11/18/2023) Immunizations Name Administration Dates Next Due COVID-19 mRNA, LNP-s, No Pre serve, 2-Dose Series ([employer]) 10/21/2021,04/20/2021,09/23/2020,08/25 COVID-19, LNP-s, No Preserve , Justyn-sucrose, Ages 12+ (Pfizer) 10/21/2021 COVID-19, MRNA-LNP, 23-24, P F, 30 MCG/0.3 mL, 12 YRS AND ABOVE, IM ([employer]) 04/12/2023 Covid-19, Mrna, Lnp-s, Pf, B ivalent, 30 Mcg, IM, 12 yrs and above (Met[employer] Powder [employer] Process) 04/07/2022 Pneumococcal Conjugate Vacc, 13 Valent (Prevnar) [...] Exposure: Never Smokeless Tobacco: Former Quit: 1970 Tobacco Cessation:Counseling Given: Not Answered Alcohol Use Standard Drinks/Week Comments Yes 5 (1 standard drink = 0.6 oz pur e alcohol) one drink three times a week AUDIT-C Answer Date Recorded Frequency of Alcohol [...] on file documented as of this encounter Last Filed Vital Signs Vital Sign Reading Time Taken Comments Blood Pressure 116/56 11/17/2023 1:32 PM EDT Pulse 72 11/17/2023 1:32 PM EDT Temperature - - Respiratory Rate 16 11/17/2023 1:32 PM EDT Oxygen Saturation - - Inhaled Oxygen Concentration - - Weight 86.2 kg (190 lb) 11/17/2023 1:32 PM EDT Height - - Body Mass Index 28.06 08/19/2023 9:32 AM EST documented in this encounter Functional Status Functional Status Response [...] No 07/14/2019 documented as of this encounter Progress Notes * Jonnathan Song PA-C - 11/17/2023 1:30 PM EDT History of Present Illness: Judith Crockett is a very pleasant 82 year [facility]. Patient accompanied by his two daughters. Patient notes evaluation at [facility], Dr. Tacho Espinoza in September 2023. Patient prescribed prednisonetaper at that time with significant improvement in symptoms. Fluticasone/Salmeterol changed to Fluticasone/Umeclidinium/Vilanterol (Trelegy) for better asthma control. Montelukast continued along with as needed ipratropium/albuterol and Mucinex. Tewu-nck-laqfens antihistamine advised. Future consideration may be made for the use of Dupixent. He is no longer using the vest. He is using the nebulizer twice a day, at 3:00 PM and again at 9:30 PM which is prior to bed. Notes being able to go for 1/4 mile walk as well as go fishing. Every now and then he will experience shortness of breath when starting to do things. Sometimes he is able to do an activity without difficulty whatsoever and other times the same activity causes shortness of breath. He notes some lower extremity peripheral edema. They are requesting something to try and help his shortness of breath. Patient notes feeling better now than he has in some time. Patient Active Problem List Diagnosis Code BPH without obstruction/lower urinary tract symptoms N40.0 Chronic rhinitis J31.0 HX-SKIN MALIGNANCY NEC - multiple BCC Z85.828 HX-MALIG SKIN MELANOMA - 2005 0.56 R post. neck Z85.820 HTN, goal below 140/90 I10 Asthma, moderate persistent J45.40 Beta-blockers contraindicated Z53.09 Hx of actinic keratosis Z87.2 History of pulmonary embolism Z86.711 History of prostate cancer Z85.46 S/P angioplasty with stent Z95.820 Gastroesophageal reflux disease without esophagitis K21.9 Mixed hyperlipidemia E78.2 Mild depression F32.A S/P CABG x 2 Z95.1 Coronary atherosclerosis of nulato coronary artery I25.10 Postoperative hypothyroidism E89.0 MGUS (monoclonal gammopathy of unknown significance) D47.2 History of osteoporosis Z87.39 PAF (paroxysmal atrial fibrillation) (HCC) I48.0 Bronchiectasis without complication (HCC) J47.9 Dyslipidemia, goal LDL below 70 E78.5 Past Medical History: Diagnosis Date Asthma Asthma, moderate persistent 02/10/2011 Benign neoplasm of colon 08/18/07 adenomatous polyps--repeat in 1 year Benign neoplasm of colon 08/22/08 hyperplastic polyps & lympoid aggregate, recommend f/u 3 years Benign neoplasm of colon 11/15/11 adenomatous polyp--repeat 5 years Beta-blockers contraindicated 10/17/2014 HR controlled Bilateral PE 02/08/2011 BPH without obstruction/lower urinary tract symptoms 08/03/2002 Bronchiectasis without complication (HCC) 01/12/2023 Chronic rhinitis 08/03/2002 Coronary atherosclerosis of nulato coronary artery 05/16/2007 Dyslipidemia, goal LDL below 100 06/24/2009 Elevated prostate specific antigen (PSA) trus bx done 2000? dr floyd in [place](benign) erectile dysfunction 08/30/2002 History of prostate cancer 12/01/2017 History of pulmonary embolism 06/02/2017 HTN, goal below 140/90 HX-MALIG SKIN MELANOMA - 2005 0.56 R post. neck 09/29/2009 HX-SKIN MALIGNANCY NEC - multiple BCC 09/29/2009 Hypertrophy (benign) of prostate Malignant neoplasm of prostate (HCC) 2005 trus bx 6-06 MGUS (monoclonal gammopathy of unknown significance) 04/15/2021 Polyp of nasal cavity 11/25/2004 Postoperative anemia due to acute blood loss 07/16/2019 Urinary retention 07/22/2019 Past Surgical History: Procedure Laterality Date ANESTHESIA, OPEN HEART SURGERY, W/O PUMP 07/12/2019 CABG X 2 ZAKI DE LA PAZ,W/ROTATOR CUFF 10/2001 right shoulder BIOPSY OF EYELID Left 04/07/2020 Dr. Ashraf BRONCHOSCOPY, DIAGNOSTIC N/A 08/26/2023 BRONCHOSCOPY DIAGNOSTIC WITH OR WITHOUT WASHING performed by Md Courtney Galeano MD at [place] [facility] CABG, ARTERIAL, SINGLE N/A 07/14/2019 CORONARY ARTERY BYPASS GRAFT USING ARTERY 1 GRAFT performed by Genesis Rea MD at [place] [facility] CATARACT SURGERY,COMPLEX Bilateral 06/2019 COLONOSCOPY 11/15/2011 adenomatous polyp--repeat 5 years COLONOSCOPY W/ BLEEDING CONTROL 08/18/2007 adenomatous polyps--repeat in 1 year COLONOSCOPY W/ LESION REMOVAL, SNARE 08/22/2008 hyperplastic polyps & lympoid aggregate, recommend f/u 3 years COLONOSCOPY, DIAGNOSTIC (RECTUM) 11/03/2016 TVA polyps, diverticulosis, repeat 3 yrs/COLONOSCOPY FLEXIBLE PROXIMAL DIAGNOSTIC performed by Robyn Heller DO at ENDOSCOPY [facility] COLONOSCOPY, DIAGNOSTIC (RECTUM) 08/11/2020 adenomatous polyps, repeat 5 yrs / COLONOSCOPY FLEXIBLE PROXIMAL DIAGNOSTIC performed by Robyn Heller DO at ENDOSCOPY [facility] CYSTOSCOPY 03/31/2010 DESTROY EYELID MARGIN LESION 03/2018 Dr Ruiz EGD, W/ENDOSCOPIC US 04/13/2011 UPPER GI ENDOSCOPY ENDOSCOPIC ULTRASOUND performed by JEFFRY HINES at [facility]OS[place] [facility] EGD, W/ENDOSCOPIC US 08/02/2012 UPPER GI ENDOSCOPY ENDOSCOPIC ULTRASOUND performed by Robyn Heller DO at [facility] EGD, W/ENDOSCOPIC US 06/03/2014 liver cyst, CBD dilation, ESOPHAGOGASTRODUODENOSCOPY (EGD), FLEXIBLE, TRANSORAL, ENDOSCOPIC ULTRASOUND performed by Robyn Heller DO at ENDOSCOPY [facility] ERCP 12/07/2020 choledocholithiasis, stent placed, repeat 4 wks / [facility] ERCP 01/30/2021 Choledocholithiasis, stent removed / [facility] INFORMATION thyroid removed INFORMATION 04/04/2006 Appendectomy INFORMATION Left 2012 Smart Stapes Piston Ear Implant- Mri Safe INTERSTITIAL RADIATION APPLICATION, COMPLEX 08/25/2006 Performed by FADUMO YATES at [facility] Log [id number] LAPAROSCOPY; CHOLECYSTECTOMY 12/09/2020 MISCELLANEOUS ORDER ([facility] ONLY) Left 03/08/2018 Take Down of Asael's Flap - Dr. Pascale GARCIA, 1ST STAGE; FACE, HANDS, FEET, NERVE Left 02/15/2018 Dr. Ashraf-left lower lid MOH's repair NASAL/SINUS ENDOSCOPY, SURGICAL ?1989 Dr Santillan at [facility] NASAL/SINUS ENDOSCOPY, SURGICAL 09/2002 Dt Stetz NEEDLE/CATHETER PLACEMENT, PROSTATE 08/25/2006 Performed by FADUMO YATES at [facility] Log [id number] REMOVAL OF APPENDIX 2005 REPAIR ARM TENDON/MUSCLE 2000 REVISION OF MIDDLE EAR BONE 06/26/2013 STAPEDECTOMY REESTABLISH OSSICULAR CONTINUITY performed by Jose Morrison MD at [facility] ULTRASONIC GUIDE, INTERSTITIAL RADIOELEMENT 08/25/2006 Performed by FADUMO YATES at [facility] Log [id number] UMBIL HERNIA REPAIR (REDUCIBLE) AGE 5+YR 11/2020 Dr. 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 Employer: [employer] Occupation: retired Social Needs Financial resource strain: Not on file Food insecurity Worry: Never true Inability: Never true Transportation needs Medical: Not on file Non-medical: Not on file Tobacco Use Smoking status: Former Smoker Packs/day: 1.00 Years: 25.00 Pack years: 25.00 Quit date: 07/18/1970 Years since quittin.6 Smokeless tobacco: Former User Tobacco comment: quit smoking 1967 Substance and Sexual Activity Alcohol use: Yes Alcohol/week: 14.0 standard drinks Types: 14 5 oz of wine per week Frequency: 4 or more times a week Drinks per session: 1 or 2 Comment: at least 2 drinks a day Drug use: No Sexual activity: Not Currently Complete Review of Systems is as stated above, negative, or noncontributory. Review of patient's allergies indicates: Allergen Reactions Ativan [Lorazepam] Codeine Nausea/vomiting Pollen Wheezing and Cough Current Outpatient Medications Medication Sig Dispense Refill ACETAMINOPHEN 500 MG PO TABS Take 1 Tablet by mouth every 4 hours as needed for Pain. Do not take more then 3000 mg in a 24 hr period. Dextran 70-Hypromellose 0.1-0.3 % Ophthalmic Solution Instill into eye as needed. Probiotic Capsule Take 1 Cap by mouth daily. aspirin enteric coated 81 MG TBEC Take 2 Tabs by mouth daily. (Patient taking differently: Take 1 Tablet by mouth every evening.) 100 Tab 3 Vitamin D 25 MCG (1000 UT) Oral Tablet Take 1 Tablet by mouth once a day on Tuesday, Tuesday, and Tuesday only. Metamucil 28.3 % Oral Powder (Psyllium) Take by mouth daily. Albuterol Sulfate HFA 108 (90 Base) MCG/ACT Inhalation Aerosol Solution Inhale by mouth 2 Puffs every 6 hours as needed for Shortness of Breath. (Patient taking differently: Inhale 2 Puffs by mouth every 6 hours as needed for Shortness of Breath.) 18 g 5 Fluorouracil 5 % External Cream (Efudex) apply to affected areas of face/scalp nightly for 2-3 weeks 40 g 1 Spironolactone 25 MG Oral Tablet (Aldactone) Take one-half Tablet by mouth in the morning. 50 Tablet 3 prednisoLONE Acetate 1 % Ophthalmic Suspension (Pred Forte) PLACE 5 DROPS IN 8 OZ OF SALINE NASAL SOLUTION (DISTILLED WATER AND SALT) USE STERIOD/SALT/WATER IRRIGATIONS TWICE PER DAY TO FLUSH NASAL/SINUS CAVITY NOT FOR USE IN EYES (Patient not taking: Reported on 08/26/2023) 45 mL 3 Verapamil HCl ER 120 MG Oral Tablet Extended Release (Isoptin SR) TAKE ONE TABLET BY MOUTH EVERY MORNING 90 Tablet 4 Sertraline HCl 50 MG Oral Tablet (Zoloft) TAKE ONE TABLET BY MOUTH EVERY DAY 100 Tablet 3 Ezetimibe 10 MG Oral Tablet (Zetia) TAKE ONE TABLET BY MOUTH EVERY MORNING 90 Tablet 3 Montelukast Sodium 10 MG Oral Tablet (Singulair) TAKE 1 TABLET BY MOUTH EVERYDAY AT BEDTIME 90 Tablet 1 Atorvastatin Calcium 80 MG Oral Tablet (Lipitor) TAKE ONE TABLET BY MOUTH EVERY DAY 90 Tablet 3 Triamcinolone Acetonide 55 MCG/ACT Nasal Aerosol (Nasacort Allergy 24HR) Administer 1 Cable into each nostril daily as needed. Ipratropium-Albuterol 0.5-2.5 (3) MG/3ML Inhalation Solution (Duoneb) INHALE THE CONTENTS OF ONE VIAL VIA NEBULIZER EVERY 4 HOURS NEEDED FOR SHORTNESS OF BREATH AND OR WHEEZING 1620 mL 0 Famotidine 20 MG Oral Tablet (Pepcid) TAKE ONE TABLET BY MOUTH TWICE A DAY 180 Tablet 3 Losartan Potassium 100 MG Oral Tablet (Cozaar) TAKE ONE TABLET BY MOUTH EVERY DAY 100 Tablet 3 Ipratropium Foxworth 0.06 % Nasal Solution (Atrovent) Administer 1 Cable into each nostril at bedtime. 45 mL 3 Tamsulosin HCl 0.4 MG Oral Capsule (Flomax) TAKE ONE CAPSULE BY MOUTH AT BEDTIME 90 Capsule 2 Fluticasone-Salmeterol 500-50 MCG/ACT Inhalation Aerosol Powder Breath Activated (Advair Diskus) INHALE ONE PUFF BY MOUTH EVERY MORNING AND ONE PUFF BEFORE BEDTIME 60 Each 12 Amoxicillin-Pot Clavulanate 875-125 MG Oral Tablet (Augmentin) Take 1 Tablet by mouth in the morning and 1 Tablet before bedtime. 20 Tablet 0 Levothyroxine Sodium 125 MCG Oral Tablet (Levoxyl) Take 1 Tablet by mouth daily first thing in the morning. (at least 30 min prior to breakfast or other meds) 90 Tablet 1 Current Facility-Administered Medications Medication Dose Route Frequency Provider Last Rate Last Admin methacholine (0 mg/mL) PLACEBO (Provocholine) inhalation solution 3 mL 3 mL Inhalation Once PRN Macrina Bhat MD OBJECTIVE/PHYSICAL EXAMINATION: BP 116/56 | Pulse 72 | Resp 16 | Wt 86.2 kg (190 lb) | BMI 28.06 kg/m | BSA 2.05 m General: Alert and oriented. Pleasant. Comfortable. Cooperative. No acute distress. + Wet cough. HENT: Normocephalic. Atraumatic. Eyes: PER. Conjunctiva pink, sclera clear. Neck: Mild JVD. + HJR. Heart: Regular at 60 bpm. Soft apical systolic murmur. No gallop. PMI is nondisplaced. Lungs: Diminished. Decrease. Clear. Abdomen: +BS. Soft. No masses. No organomegaly. Extremities: 1+ pretibial edema. Varicosities. No clubbing. No cyanosis. Limited neurological examination is without focal deficits. Pulses: Posterior tibial=1/4. Data: December 06, 2018 Coronary Angiography ([facility], Dr. Bowie): Right dominant coronary anatomy. Left main relatively short normal caliber with mild calcification and no obstruction. Left anteriordescending: Type III in distribution a small first diagonal and large second diagonal in its proximal and mid portions. Within the left anterior descending there is calcification of its proximal segment with a long 60% stenosis encompassing the origins of both diagonal branches. Left circumflex: Large caliber vessel with proximal atrial branch and a small first marginal and large trifurcating obtuse marginal. Within the proximal circumflex there is a 90% calcified lesion with moderate irregularities in the distal vessel Right coronary artery: Dominant anatomy giving rise to a large right ventricular branch in its midportion, a long posterior descending artery and a long posterior ventricular branch. There are mild irregularities in the proximal vessel and a 50% narrowing in the mid posterior descending artery. LV angiography not performed. LVEDP 7 July 13, 2019 Coronary Angiography ([facility], Dr. Cotter): Left Main: Short vessel without significant disease LAD: 99% ostial/proximal in-stent restenosis with MELISSA I/II flow distally. Remainder of LAD widely patent. Circumflex: 80 to 90% ostial stenosis, extending into prior proximal stent. Remainder of circumflexsystem widely patent RCA: Dominant, mild luminal irregularities, 40% disease in mid PDA. LVEDP: 0 May 28, 2022 Coronary Angiography ([facility], Dr. Rich): Selective injections of the right coronary artery reveal it to be dominant. The right coronary artery is widely patent. Selective injections of the saphenous vein graft to the obtuse marginal branch from the left circumflex artery reveal it to be widely patent supplying both antegrade and retrograde flow to the left circumflex artery. Selective injections of the JOHNATHON graft to the LAD reveal it to be widely patent supplying both antegrade and retrograde flow to the LAD. Selective injections of the nulato left coronary artery reveal the left circumflex artery to be patent with competitive flow from the saphenous vein graft to the OM. Sim ilar to the left circumflex, the LAD appears to be patent with competitive flow from the JOHNATHON graft.There is evidence of a long segment of coronary stent in both the proximal left circumflex and LAD with some in-stent restenosis. June 25, 2022 TTE Interpretation Summary (as per Dr. Kevin): The LV wall thickness is moderately increased (concentric). No LV segmental wall motion bnormalities. The qualitative LV ejection fraction is 60-64% (normal). The left ventricular diastolic function is mildly abnormal (grade I). Moderate aortic valve sclerosis is present. Aortic stenosis is absent. August 15, 2023 TTE Interpretation Summary (as per Dr. Bowie): The left ventricular cavity size isrelatively small The LV wall thickness is moderately increased (concentric). The left ventricular wall motion is normal. The qualitative LV ejection fraction is 60-64% (normal). The left ventricular d iastolic function is mildly abnormal (grade I). The aortic valve has three leaflets. The aortic valve is mildly calcified. Aortic stenosis is absent. Mild tricuspid regurgitation is present. There isno evidence of pulmonary hypertension. In comparison to June 25, 2022, no significant change EKG on November 17, 2023 revealed sinus bradycardia at 58 bpm with RSR or QR pattern in V1 suggesting RV conduction delay. When compared to prior available tracings, there was no significant change. ASSESSMENT: Volume overload, multifactorial ASCVD Status post December 06, 2018 PCI to LAD with 2 MARY and PCI to circumflex with single MARY Status post July 14, 2019 CABG x2, COATS to the LAD and a SVG to the OM. Postoperative CABG course complicated by postoperative anemia, atrial fibrillation (without observed reoccurrence), malpositioned Gonzalez, urinary retention, persistent bladder spasms, post-op delirum May 28, 2022 cardiac catheterization with widely patent saphenous vein graft to the OM, widelypatent JOHNATHON graft to the LAD, and a widely patent dominant right coronary artery. The nulato left coronary artery revealed long segments of coronary stents in both the proximal LAD and left circumflexartery with some in-stent stenosis with competitive flow from the nulato artery to the SVG and JOHNATHON. Beta-araceli intolerance. Bronchiectasis Moderate persistent asthma. Chronic sinusitis, nasal polyposis, deviated nasal septum, post nasal drainage History of remote pulmonary embolism Hypertension Dyslipidemia. Optimal LDL goal less than 70 mg/dL. LDL cholesterol 64 mg/dL on 08/19/2023. Prescribedatorvastatin 80 mg/day and ezetimibe (Zetia) 10 mg/day Bilateral internal carotid artery disease. March 2022 carotid duplex revealed stable mild disease. Follow-up duplex planned for March 2024. 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 We discussed management options including further cardiac evaluation including repeat resting echocardiography, stress testing, diagnostic cardiac catheterization. Via shared decision-making, further cardiac testing was not felt to be warranted at this time. Via shared decision-making, we will increase diuretic therapy cautiously in an attempt to improve dyspnea and aid the mild volume overload. Spironolactone will be increased from 12.5 mg/day to 25 mg/day. Furosemide will be initiated at 20 mg by mouth only on Mondays, Wednesdays, and Fridays. A follow-up basic metabolic panel and CBC were ordered to be obtained with the follow-up laboratory work requested by PCP in a couple of weeks. If hypotension observed with the above would reduce losartan dosing. Verapamil is being utilized as alternative therapy given past poor tolerance to beta-araceli ther apy. He does have a history of postoperative paroxysmal atrial fibrillation and is at increased risk for reoccurrence though I wonder if this patient may not feel better overall with less chronotropic therapy (? Change from Verapamil ER 120 mg/day to Verapamil ER 100 mg/day if available, or 40 mg BID). Nitrates were previously poorly tolerated. Cardiology follow-up in 2-3 months or as needed. ER with emergencies. Jonnathan Song PA-C Department of Cardiology I spent a total of 40-54 minutes (exact time 45 mins) on the date of service in preparation, delivery, and documentation of the care provided to Judith Crockett excluding any time spent in the performance of separately billed services. This visit involved medical care services related to at least oneserious condition or complex condition requiring ongoing care. This chart was completed in part util Here@ [email or web address] Voice Recognition Software. Grammatical errors, random word insertions, prounoun errors, and incomplete sentences are an occasional consequence of this system due to software limitations, ambient noise, and hardware issues. Any formal questions or concerns about the content, text, or information contained within the body of this dictation should be directly addressed to the provider for clarification. documented in this encounter Procedure Notes * Edward Kevin DO - 11/17/2023 1:39 PM EDTAssociated Order(s): EKG REASON FOR STUDY: HTN;HTN CONCLUSIONS: Sinus bradycardia RSR' or QR pattern in V1 suggests right ventricular conduction delay Borderline ECG When compared with ECG of 14-Jun-2022 11:48, No significant change was found Ventricular Rate: 58 Atrial Rate: 58 NV Interval: 152 QRS Duration: 96 QT/QTc: 428/420 ms P-R-T [place]: 70 : 40 : 37 degrees documented in this encounter Nursing Notes * Florin Ellington LPN - 11/17/2023 1:32 PM EDT Patient identified by full name and date of Chief Complaint Patient presents with Follow Up 6 month follow up. Every now and then becomes SOB like after heart surgery- when starting to exert self like getting up to walk it will occur quickly. Edema in left leg on occasion. Chest tightness at times- seems related to seasonal allergies. Denies chest pain, palpitations and dizziness. Examination Room: 2 Name: Judith Crockett Date of : (1940). Reason for Visit: 6 month follow up Interim Hospitalization(s): Denies Problems/Concerns: See chief complaint Chest Pain/SOB: See chief complaint [facility] Discussed: Yes [facility] is a way you can talk to your provider online through e-mail. Would you like to sign up? I can activate it for you? ALREADY ACTIVE Patient was instructed to not get up on the exam table until directed and assisted by their provider; patient is to remain seated in the chair/ wheelchair/ exam table for fall prevention and safety reasons. Patient is aware to have assistance to step down off exam table with personnel. Patient voiced full comprehension of instructions. documented in this encounter Plan of Treatment Upcoming Encounters Date Type Department Care Team (Late st Contact Info) Description 12/08/2023 3:30 PM EDT Office Visit Dermatology [facility] [place] [address] [place] [id number] Ama Galvez MD [address] [place] [address] [address] 02/15/2024 10:00 AM EDT [facility] [place] [address] [facility] [place] [phone] Paulette Hernandez [address] [facility] [place] [address] 02/22/2024 2:30 PM EDT Office Visit Hematology/Oncology [facility] [address] [place] [phone] Smita Miller MD [address] [place] [address] 02/24/2024 9:20 AM EDT Office Visit General Internal Medicine [facility] [address] [place] [address] Donn Clarke MD [address] [place] [address] 02/27/2024 9:00 AM EDT Office Visit Cardiology, [facility] [address] [place] [address] Jonnathan Song, PA-C [address] [place] [address] 03/26/2024 10:30 AM EDT Nurse Only Ancillary [facility] [address] [facility] [place] [address] [facility], Nurse Annual Wellness [facility] [address] [place] [address] Scheduled Orders Name Type Priority Associated Diagnoses Orde r Schedule CBC Lab Routine SOB (shortness of breath) Expected: 11/17/2023, Expires: 11/16/2024 BASIC METABOLIC PANEL Lab Routine SOB (shortness of breath) Expected: 11/17/2023, Expires: 11/16/2024 Scheduled Procedures Name Priority Associated Diagnoses Date/Ti me COLONOSCOPY FLEXIBLE PROXIMAL DIAGNOSTIC Recall History of colon polyps Health Maintenance Due Date Last Done Comments DXA Scan 01/27/2023 01/28/2020, 03/13/2008 DTaP,Tdap,and Td Vaccines (2 - Td or Tdap) 08/20/2023 08/20/2013, 10/25/2007 GFR 08/19/2024 08/19/2023, 08/0 02/2023, 12/02/2022, Additional history exists TSH 11/03/2024 11/04/2023, 09/16, 09/15/2023, Additional history exists Albumin/Creatinine Ratio 04/22/2025 022, 04/25/2015, 04/29/2014 Colonoscopy 08/11/2025 08/11/2020, 07/19, 11/03/2016, Additional history exists Pneumococcal Vaccine: 65+ Years Completed 10/17/2014, 07/30/2011, 09/04/2004 Zoster Vaccines Completed 03/31/2018, 12/17, 10/19/2010, Additional history exists RETIRED - COLONOSCOPY-EVERY 5 YRS AGES 18-100 Discontinued 08/11/2020, 08/11/2020, 11/03/2016, [...] this encounter Medical Devices Implanted Type Area Recruiter Manager Device Identifier Shelf Expiration Date Model / Serial / Lot Pisearl Smart .6x4.25 [id number] - [id number] Implanted:Qty : 1 on 06/26/2013 [place] [facility] [place]: Ear GYRUS : ENT 05/17/2022 [id number] / / [id number] Suture Steel 6 B&S19 M654g - [id number] Implanted:Qty : 4 on 07/14/2019 by Genesis Rea MD at [place] [facility] [place] N/A: Sternum JNJ : [employer] 03/17/2024 [id number] / / [id number] documented as of this encounter Procedures Procedure Name Priority Date/Time Associated Diagnosis Comments NV ECG ROUTINE ECG W/LEAST 12 LDS W/I&R Routine 11/17/2023 1:39 PM EDT HTN, goal below 140/90 documented in this encounter Results * EKG (11/17/2023 1:39 PM EDT) 11/17/2023 1:39 PM EDT Narrative Procedure Note Edward Kevin DO - 11/17/2023 1:39 PM EDT REASON FOR STUDY: HTN;HTN CONCLUSIONS: Sinus bradycardia RSR' or QR pattern in V1 suggests right ventricular conduction delay Borderline ECG When compared with ECG of 14-Jun-2022 11:48, No significant change was found Ventricular Rate: 58 Atrial Rate: 58 NV Interval: 152 QRS Duration: 96 QT/QTc: 428/420 ms P-R-T [place]: 70 : 40 : 37 degrees Jonnathan Parada Nohemi [facility] documented in this encounter Visit Diagnoses Diagnosis HTN, goal below 140/90- Primary Unspecified essential hypertension Heart failure, diastolic, with acute decompensation (HCC) Acute on chronic diastolic heart failure ASCVD (arteriosclerotic cardiovascular disease) Unspecified cardiovascular disease S/P CABG x 2 Postsurgical aortocoronary bypass status SOB (shortness of breath) Shortness of breath Peripheral edema Edema documented in this encounter Advance Directives Latest [...] and were consensually agreed upon. Care Teams Chief Reservoir Engineering Relationship Specialty Start Date End Date Donn Clarke MD [address] [facility] [address] PCP - General Internal Medicine 12/17/15 documented as of this encounter"
--- OUTSIDE RECORDS SUMMARY | 2023-11-25 09:23 | External Medical Summary ---
Author Name Unknown Address Unknown Organization [id number]:[facility] [place] - [address] [place] [address] Laboratory Report Ordering Provider Test Date Status BERNY CARDENAS 11/08/2023 11:34:13 Final Observation Date Value Abnormality Reference (Units) Status Bacteria identified in Specimen by Culture 11/08/2023 11:34:13 Specimen unsatisfactory. Not tested. Final Gram Stain 11/08/2023 11:34:13 Specimen contaminated with epithelial cells front office representative of oropharyngeal contamination. Further processing may yield potentially misleading results. Final Test: Culture, Respiratory, Lower, Aerobic
Specimen Source: Sputum
Specimen Type: Lower Respiratory
Specimen Date: 11/08/2023 11:34 AM
Result Date: 11/08/2023 10:56 PM
Result Status: Final result
Resulting Lab: [facility] [place]
[address] [facility]
[place] [address]

CULTURE

Specimen unsatisfactory. Not tested.

STAIN

Specimen contaminated with epithelial cells front office representative of oropharyngeal
contamination. Further processing may yield potentially misleading results.

null Performing Location [facility] [place] - [address] [place] [id number]
--- OUTSIDE RECORDS SUMMARY | 2023-11-25 09:23 | External Medical Summary | Summary of Care ---
Author Name Unknown Organization [facility] Address [address] [place] [address] Phone [phone] Care Team Providers Care Wildlife Control Operator Name Role Phone Donn Clarke MD Primary Care Provider + Reason for Visit * Reason Comments Outpatient Testing Encounter Details Date Type Department Care Team (Late st Contact Info) Description 11/08/2023 11:40 AM EDT Laboratory Laboratory, [facility] [address] [place] [phone] [facility] [address] [place] [address] Bronchiectasis (HCC) Allergies Active Allergy Reactions Criticality Noted Date [...] coated 81 MG TBECIndications:Coron myra atherosclerosis of [place] coronary artery Take 2 Tabs by mouth [...] Extended Release (Isoptin SR)Indications:[place] ry atherosclerosis of [place] coronary artery,PAF (paroxysmal atrial fibrillation) (HCC),HTN, goal [...] Nasal Aerosol (Nasacort Allergy 24HR) Administer 1 [place] into each nostril daily as needed. 0 [...] 100 Tablet 3 07/06/2023 4 Active Ipratropium [place] 0.06 % Nasal Solution (Atrovent) Administer 1 [place] into each nostril at bedtime. 45 mL [...] single drug-eluting stent (3.0 x 15 mm [place]). 3. Successful PCI of ostial to mid LAD with 2 overlapping drug-eluting stents (3.0 x 34, 2.5 x 12 mm [place]). History of prostate cancer 12/01/2017 History of pulmonary embolism 06/02/2017 Hx of actinic keratosis 09/03/2016 Beta-blockers contraindicated 10/17/2014 Overview: HR controlled Asthma, moderate persistent 02/10/2011 HTN, goal below 140/90 01/21/2010 HX-SKIN MALIGNANCY NEC - multiple BCC 09/29/2009 Overview: BCCs: -2005 L neck -2006 L ala, R flank, L cheek, midback -2007 L upper back, R deltoid -2011 R scientology -2012 R temporal scalp -02/2014 BCC L chest -11/2018 BCC R medrano upper HX-MALIG SKIN MELANOMA - 2006 0.56 R post. 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, Hx melanoma in 2005, 0.56 mm on the Right neck; also hx MIS right midback 02/2014; L lower eyelid MIS 02/2018 Coronary atherosclerosis of [place] coronary estella ry 05/16/2007 BPH without obstruction/lower [...] unspecified 10/12/2012 12/01/2017 Pancreatic duct dilated 07/26/2012 0208/2023 Iatrogenic pulmonary embolism and infarction 1 06/02/2017 [...] recommend f/u 3 years [employer] Other*[id number] 06/05/2007 08/24/2016 Overview: Study Title: Genomic Markers for Patients with Cardiovascular Disease Project # [id number] Storyboard Artist: Aretha Rodríguez MD [phone] Coronary atherosclerosis of [place] coronary artery 05/16/2007 07/27/2019 ADVANCE DIRECTIVE INFORMATION [...] mRNA, LNP-s, No Pre serve, 2-Dose Series ([place]) 10/21/2021,04/20/2021,09/23/2020,08/25 COVID-19, LNP-s, No Preserve , Justyn-sucrose, Ages 12+ (Pfizer) 10/21/2021 COVID-19, MRNA-LNP, 23-24, P F, 30 MCG/0.3 mL, 12 YRS AND ABOVE, IM (PFIZER-Comirnaty) 04/12/2023 Covid-19, Mrna, Lnp-s, Pf, B ivalent, 30 Mcg, IM, 12 yrs and above (Pfizer) 04/07/2022 Pneumococcal Conjugate Vacc, 13 Valent (Prevnar) [...] 11/17/2023 1:30 PM EDT Office Visit Cardiology, [facility] [address] [place] [address] Jonnathan Song PA-C [address] [place] [address] 12/08/2023 3:30 PM EDT Office Visit Dermatology [facility] [address] [facility] [place] [address] Ama Galvez MD [address] [facility] [place] [address] 02/15/2024 10:00 AM EDT Laboratory Laboratory, [facility] [address] [phone] [address] [facility] [address] [address] 02/22/2024 2:30 PM EDT Office Visit Hematology/Oncology [facility] [address] [facility] [place] [phone] Smita Miller MD [address] [facility] [place] [address] 02/24/2024 9:20 AM EDT Office Visit General Internal Medicine [facility] [address] [facility] [place] [address] Donn Clarke MD [address] [facility] [place] [address] 03/26/2024 10:30 AM EDT Nurse Only [facility] [address] [address] [facility], Nurse Annual Wellness [facility] [address] [address] Pending Results Name Type Priority Associated Diagnoses Date /Time CULTURE, RESPIRATORY, LOWER, AEROBIC Lab Routine Bronchiectasis (HCC) 11/08/2023 11:34 AM EDT Scheduled Procedures Name Priority Associated Diagnoses Date/Ti me COLONOSCOPY FLEXIBLE PROXIMAL DIAGNOSTIC Recall History of colon polyps Health Maintenance Due Date Last Done Comments DXA Scan 01/27/2023 01/28/2020, 03/13/2008 DTaP,Tdap,and Td Vaccines (2 - Td or Tdap) 08/20/2023 08/20/2013, 10/25/2007 GFR 08/19/2024 08/19/2023, 0802/2023, 12/02/2022, Additional history exists TSH 11/03/2024 11/04/2023, [...] this encounter Medical Devices Implanted Type Area Washroom Operator Device Identifier Shelf Expiration Date Model / Serial / Lot Jenna Smart .6x4.25 [id number] - [id number] Implanted:Qty : 1 on 06/26/2013 at [place] [facility] [place] Left: Ear GYRUS : ENT 05/17/2022 [id number] / / [id number] Suture Steel 6 B&S19 M654g - [id number] Implanted:Qty : 4 on 07/14/2019 by Genesis Rea MD at OR [facility] N/A: Sternum JNJ : [employer] 03/17/2024 [id number] / / [id number] documented as of this encounter Visit Diagnoses Diagnosis Bronchiectasis (HCC) Bronchiectasis without acute exacerbation documented in this [...] and were consensually agreed upon. Care Teams Wildlife Control Operator Relationship Specialty Start Date End Date Donn Clarke MD [address] [place] [address] PCP - General Internal Medicine 12/17/15 documented as of this encounter
--- OUTSIDE RECORDS SUMMARY | 2023-11-25 09:24 | External Medical Summary ---
Author Name Unknown Address Unknown Organization K01:[facility] [place] [address] [place] [address] Laboratory Report Ordering Provider Test Date Status JOSE CONNOLLY 10/12/2023 10:43:16 Final Observation Date Value Abnormality Reference (Units ) Status TSH 10/12/2023 10:43:16 0.11 Below low normal 0.2 7-4.20 (uIU/mL) Final Performing Location [facility] [place] [address] [place] [address]
--- OUTSIDE RECORDS SUMMARY | 2023-11-25 09:24 | External Medical Summary | Summary of Care ---
Author Name Unknown Organization [facility] Address [address] [place] [address] Phone [phone] Care Team Providers Care Meat Apprentice Name Role Phone Donn Clarke MD Primary Care Provider + Reason for Visit * Reason Onset Date Comments Test Results 09/16/2023 Encounter Details Date Type Department Care Team (Late st Contact Info) Description 09/16/2023 Telephone General Internal Medicine [facility] [address] [place] [address] Donn Clarke MD [address] [facility] [place] [address] Test Results Allergies Active Allergy Reactions Criticality Noted Date Comments Lorazepam Low 07/27/2019 Codeine Nausea/vomiting Low 10/31/2018 Pollen Wheezing,Cough Low 11/30/2016 documented as of this encounter (statuses as of 09/16/2023) Medications Medication Sig Dispensed Refills Start Date [...] coated 81 MG TBECIndications:Cor onary atherosclerosis of hoopa coronary artery Take 2 Tabs by mouth [...] weeks 40 g 1 10/04/19 23 Active Spironolactone 25 MG Oral Tablet (Aldactone) Take one-half Tablet by mouth in the morning. 50 Tablet 3 01/21/20 23 Active prednisoLONE Acetate 1 % Ophthalmic Suspension (Pred Forte) PLACE 5 DROPS IN 8 OZ OF SALINE NASAL SOLUTION (DISTILLED WATER AND SALT) USE STERIOD/SALT/MIGUEL ÁNGEL ER IRRIGATIONS TWICE PER DAY TO FLUSH NASAL/SINUS CAVITY NOT FOR USE IN EYES 45 mL 3 01/15/20 23 024 Active Additional Information Patient not taking.Reported on 08/26/2023 Verapamil HCl ER 120 MG Oral Tablet Extended Release (Isoptin SR)Indications:Donell nary atherosclerosis of ho[place] coronary artery,PAF (paroxysmal atrial fibrillation) (HCC),HTN, goal [...] BEDTIME 90 Tablet 1 05/10/20 23 Active Atorvastatin Calcium 80 MG Oral Tablet (Lipitor)Indication s:Dyslipidemia, goal LDL below 70 TAKE ONE TABLET BY MOUTH EVERY DAY 90 Tablet 3 05/24/20 23 024 Active Triamcinolone Acetonide 55 MCG/ACT Nasal Aerosol (Nasacort Allergy 24HR) Administer 1 Kal[place] into each nostril daily as needed. 0 [...] Tablet 3 07/06/20 23 024 Active Ipratropium [place] 0.06 % Nasal Solution (Atrovent) Administer 1 [place] into each nostril at bedtime. 45 mL 3 08/17/19 24 Active Tamsulosin HCl 0.4 MG Oral Capsule (Flomax)Indications :BPH without obstruction/lower urinary tract symptoms TAKE ONE CAPSULE BY MOUTH AT BEDTIME 90 Capsule 2 09/01/19 24 Active Fluticasone-Salmete rol 500-50 MCG/ACT Inhalation Aerosol Powder Breath Activated (Advair Diskus) INHALE ONE PUFF BY MOUTH EVERY MORNING AND ONE PUFF BEFORE BEDTIME 60 Each 12 09/05/19 24 025 Active Amoxicillin-Pot Clavulanate 875-125 MG Oral Tablet (Augmentin) Take 1 Tablet by mouth in the morning and 1 Tablet before bedtime. 20 Tablet 0 09/05/19 24 Active Levothyroxine Sodium 137 MCG Oral TabletIndications:P ostoperative hypothyroidism Take 1 Tablet by mouth daily first thing in the morning. 0 09/16/19 24 Active Levothyroxine Sodium 137 MCG Oral TabletIndications:P ostoperative hypothyroidism TAKE ONE TABLET BY MOUTH EVERY DAY ON TUESDAY, TUESDAY, TUESDAY AND TUESDAY (AT LEAST THIRTY MINUTES PRIOR TO BREAKFAST OR OTHER MEDS) 60 Tablet 1 02/19/20 23 024 Discontinued Levothyroxine Sodium 150 MCG Oral Tablet (Levoxyl)Indication s:Congenital hypothyroidism without goiter TAKE ONE TABLET BY MOUTH ON TUESDAY AND TUESDAY ONLY, Levothyroxine 137mcg all other days. 24 Tablet 0 08/26/19 24 024 Discontinued(Me dication/Dose Changed) Hospital, Clinic, or Other Facility Administered Medication Ordered Dose Route Frequency Start Date End Date Status methacholine (0 mg/mL) [place] (Provocholine) inhalation solution 3 mLIndications:Shortness of breath 3 mL IN ONCE PRN 07/14/2022 Active documented as of this encounter (statuses as of 09/16/2023) Active Problems Problem Noted Date Diagnosed Date [...] L upper back, R deltoid -2011 R yarsani -2012 R temporal scalp -02/2014 BCC L chest -11/2018 BCC R medrano upper HX-MALIG SKIN MELANOMA - 2005 0.56 R post. 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, Hx melanoma in 2005, 0.56 mm on the Right neck; also hx MIS right midback 02/2014; L lower eyelid MIS 02/2018 Coronary atherosclerosis of hoopa coronary estella ry 05/16/2007 BPH without obstruction/lower urinary tract symp toms 08/03/2002 Chronic rhinitis 08/03/2002 documented as of this encounter (statuses as of 09/16/2023) Resolved Problems Problem Noted Date Diagnosed Date [...] recommend f/u 3 years [employer] Other*[id number] 06/05/2007 08/24/2016 Overview: Study Title: Genomic Markers for Patients with Cardiovascular Disease Project # [id number] Cyber Incident Analyst: Aretha Rodríguez MD [phone] Coronary atherosclerosis of hoopa coronary artery 05/16/2007 07/27/2019 ADVANCE DIRECTIVE INFORMATION [...] as of this encounter (statuses as of 09/16/2023) Immunizations Name Administration Dates Next Due COVID-19 mRNA, LNP-s, No Pre serve, 2-Dose Series ([employer]) 10/21/2021,04/20/2021,09/23/2020,08/25 COVID-19, LNP-s, No Preserve , Justyn-sucrose, Ages 12+ ([employer]) 10/21/2021 COVID-19, MRNA-LNP, 23-24, P F, 30 MCG/0.3 mL, 12 YRS AND ABOVE, IM ([facility]) 04/12/2023 Covid-19, Mrna, Lnp-s, Pf, [...] No 07/14/2019 documented as of this encounter Miscellaneous Notes * Telephone Encounter - Akanksha Novak MED ASSIST - 09/16/2023 9:30 AM EST Patient aware and verbalized understanding. Med list updated. Pt denied need for refill. * Telephone Encounter - Akanksha Novak MED ASSIST - 09/16/2023 9:25 AM EST ----- Message from Donn Clarke MD sent at 09/16/2023 8:10 AM EST ----- Tsh still low cut back to 137 mcg levothyroxine daily. Update med list, pend refill if needed, recheck labs 4 weeks documented in this encounter Plan of Treatment Upcoming Encounters Date Type Department Care Team (Late st Contact Info) Description 11/25/2023 10:00 AM EDT [facility] [address] [place] [address] Jonnathan Song PA-C [address] [place] [address] 12/08/2023 3:30 PM EDT Office Visit Dermatology [place] [address] [place] [address] Ama Galvez MD [address] [place] [address] [place] [address] 02/15/2024 10:00 AM EDT [facility] [place] [address] [place] [phone] Paulette Hernandez [address] [place] [address] 02/22/2024 2:30 PM EDT Office Visit Hematology/Oncology [facility] 200 [facility] [place], [place] [address] Smita Miller MD 200 [facility] [place] [address] 02/24/2024 9:20 AM EDT Office Visit General Internal Medicine [facility] 200 [facility] [place] [address] Donn Clarke MD 200 [facility] [place] [address] 03/26/2024 10:30 AM EDT Nurse Only Ancillary [facility] [address] [facility], Nurse Annual Wellness [facility] [address] [facility] [place] [address] Scheduled Procedures Name Priority Associated Diagnoses Date/Ti me COLONOSCOPY FLEXIBLE PROXIMAL DIAGNOSTIC Recall History of colon polyps Health Maintenance Due Date Last Done Comments DXA Scan 01/27/2023 01/28/2020, 03/13/2008 DTaP,Tdap,and Td Vaccines (2 - Td or Tdap) 08/20/2023 08/20/2013, 10/25/2007 Depression Screening 03/23/2024 03/23/2023, 10/18/19 15 GFR 08/19/2024 08/19/2023, 0802/2023, 12/02/2022, Additional history exists TSH 09/14/2024 09/15/2023, 0 08/2023, 06/14/2022, Additional history exists Albumin/Creatinine Ratio 04/22/2025 022, [...] this encounter Medical Devices Implanted Type Area Security Clerk Device Identifier Shelf Expiration Date Model / Serial / Lot Piston Smart .6x4.25 [id number] - [id number] Implanted:Qty : 1 on 06/26/2013 at [place] [facility] [place] Left: Ear GYRUS : ENT 05/17/2022 [id number] / / [id number] Suture Steel 6 B&S19 M654g - [id number] Implanted:Qty : 4 on 07/14/2019 by Genesis Rea MD at OR [facility] N/A: Sternum JNJ : [employer] 03/17/2024 M654G / / [id number] documented as of this encounter Visit Diagnoses Diagnosis Postoperative hypothyroidism Postsurgical hypothyroidism documented in this encounter Advance Directives Latest [...] and were consensually agreed upon. Care Teams Meat Apprentice Relationship Specialty Start Date End Date Donn Clarke MD [address] [place] [address], [place] [address] PCP - General Internal Medicine 12/17/15 documented as of this encounter
--- OUTSIDE RECORDS SUMMARY | 2023-11-25 09:24 | External Medical Summary | Summary of Care ---
Author Name Unknown Organization [facility] Address [address] [place] [address] Phone [phone] Care Team Providers Care Music Cataloguer Name Role Phone Donn Clarke MD Primary Care Provider + Reason for Visit * Reason Comments Outpatient Testing Encounter Details Date Type Department Care Team (Late st Contact Info) Description 10/12/2023 10:40 AM EDT Laboratory Laboratory, [facility] [address] [place] [address] [facility] [address] [place] [address] Postoperative hypothyroidism Allergies Active Allergy Reactions Criticality Noted Date Comments Lorazepam Low 07/27/2019 Codeine Nausea/vomiting Low 10/31/2018 Pollen Wheezing,Cough Low 11/30/2016 documented as of this encounter (statuses as of 10/12/2023) Medications Medication Sig Dispensed Refills Start Date [...] coated 81 MG TBECIndications:Coron myra atherosclerosis of [place] coronary artery Take 2 Tabs by mouth [...] Extended Release (Isoptin SR)Indications:[place] ry atherosclerosis of [place] coronary artery,PAF (paroxysmal atrial fibrillation) (HCC),HTN, goal [...] Nasal Aerosol (Nasacort Allergy 24HR) Administer 1 T[place]erner into each nostril daily as needed. 0 [...] 100 Tablet 3 07/06/2023 4 Active Ipratropium [place] 0.06 % Nasal Solution (Atrovent) Administer 1 Telferner into each nostril at bedtime. 45 mL [...] 20 Tablet 0 09/05/2023 Active Levothyroxine Sodium 137 MCG Oral TabletIndications:Pos toperative hypothyroidism Take 1 Tablet by mouth daily first thing in the morning. 0 09/16/2023 Active Hospital, Clinic, or Other Facility Administered Medication Ordered Dose Route Frequency Start Date End Date Status methacholine (0 mg/mL) PLACEBO (Provocholine) inhalation solution 3 mLIndications:Shortness of breath 3 mL IN ONCE PRN 07/14/2022 Active documented as of this encounter (statuses as of 10/12/2023) Active Problems Problem Noted Date Diagnosed Date [...] L upper back, R deltoid -2011 R alevism -2012 R temporal scalp -02/2014 BCC L chest -11/2018 BCC R medrano upper HX-MALIG SKIN MELANOMA - 2005 0.56 R post. 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, Hx melanoma in 2006, 0.56 mm on the Right neck; also hx MIS right midback 02/2014; L lower eyelid MIS 02/2018 Coronary atherosclerosis of [place] coronary estella ry 05/16/2007 BPH without obstruction/lower urinary tract symp toms 08/03/2002 Chronic rhinitis 08/03/2002 documented as of this encounter (statuses as of 10/12/2023) Resolved Problems Problem Noted Date Diagnosed Date Resolved Date Age-related osteoporosis wit hout current pathological fracture 10/03/2019 10/20/2021 Urinary retention 07/22/2019 10/20/2021 Postoperative anemia due to acute blood loss 9 10/03/2019 Unstable angina 07/13/2019 07/27/2019 Acquired hypothyroidism 05/05/2018 04/0 11/2021 Hypothyroid 04/18/2014 05/05/2018 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 12/01/2017 Mixed hearing loss, unspecified 10/12/2012 12/01/2017 Pancreatic duct dilated 07/26/2012 020 08/2023 Iatrogenic pulmonary embolism and infarction 1 [...] recommend f/u 3 years [employer] Other*[id number] 06/05/2007 08/24/2016 Overview: Study Title: Genomic Markers for Patients with Cardiovascular Disease Project # [id number] Plant Packer: Aretha Rodríguez MD [phone] Coronary atherosclerosis of [place] coronary artery 05/16/2007 07/27/2019 ADVANCE DIRECTIVE INFORMATION [...] as of this encounter (statuses as of 10/12/2023) Immunizations Name Administration Dates Next Due COVID-19 mRNA, LNP-s, No Pre serve, 2-Dose Series ([employer]) 10/21/2021,04/20/2021,09/23/2020,08/25 COVID-19, LNP-s, No Preserve , Justyn-sucrose, Ages 12+ ([employer]) 10/21/2021 COVID-19, MRNA-LNP, 23-24, P F, 30 MCG/0.3 mL, 12 YRS AND ABOVE, IM ([facility] 04/12/2023 Covid-19, Mrna, Lnp-s, Pf, B ivalent, 30 Mcg, IM, 12 yrs and above ([employer]) 04/07/2022 Pneumococcal Conjugate Vacc, 13 Valent (Prevnar) [...] 11/17/2023 1:30 PM EDT Office Visit Cardiology, [facility] [address] [place] [address] Jonnathan Song PA-C [address] [place] [address] 12/08/2023 3:30 PM EDT Office Visit Dermatology [facility] 200 [facility] [place] [address] Ama Galvez MD 200 [facility] [place] [address] 02/15/2024 10:00 AM EDT [facility] [phone] Paulette Hernandez [facility] [address] [facility] [address] 02/22/2024 2:30 PM EDT Office Visit Hematology/Oncology [facility] 200 [facility] [place] [phone] Smita Miller MD 200 [facility] [place] [address] 02/24/2024 9:20 AM EDT Office Visit General Internal Medicine [facility] [address] [facility] [address] [place], [place] [address] Donn Clarke MD 200 [facility] [place] [address] 03/26/2024 10:30 AM EDT Nurse Only Ancillary [facility] [address] [facility] [address] [place], Nurse [facility] [address] [facility] [address] Pending Results Name Type Priority Associated Diagnoses Date /Time TSH Lab Routine Postoperative hypothyroidism 10/12/2023 10:43 AM EDT Scheduled Procedures Name Priority Associated Diagnoses Date/Ti me COLONOSCOPY FLEXIBLE PROXIMAL DIAGNOSTIC Recall History of colon polyps Health Maintenance Due Date Last Done Comments DXA Scan 01/27/2023 01/28/2020, 03/13/2008 DTaP,Tdap,and Td Vaccines (2 - Td or Tdap) 08/20/2023 08/20/2013, 10/25/2007 Depression Screening 03/23/2024 03/23/2023, 10/18/19 15 GFR 08/19/2024 08/19/2023, 0802/2023, 12/02/2022, Additional history exists TSH 09/14/2024 09/15/2023, 08/2023, 06/14/2022, Additional history exists Albumin/Creatinine Ratio [...] this encounter Medical Devices Implanted Type Area Senior Embedded Software Engineer Device Identifier Shelf Expiration Date Model / Serial / Lot Jenna Smart .6x4.25 [id number] - [id number] Implanted:Qty : 1 on 06/26/2013 [place] [facility]: Ear GYRUS : ENT 05/17/2022 [id number] / / [id number] Suture Steel 6 B&S19 M654g - [id number] Implanted:Qty : 4 on 07/14/2019 by Genesis Rea MD at [place] [facility] N/A: Sternum JNJ : [employer] 03/17/2024 M654G / / [id number] documented as of this encounter Visit Diagnoses [...] and were consensually agreed upon. Care Teams Music Cataloguer Relationship Specialty Start Date End Date Donn Clarke MD 200 [place] [address] PCP - General Internal Medicine 12/17/15 documented as of this encounter
--- OUTSIDE RECORDS SUMMARY | 2023-11-25 09:24 | External Medical Summary | Summary of Care ---
Author Name Unknown Organization [facility] Address [address] [place] [address] Phone [phone] Care Team Providers Care Equipment Maintenance Supervisor Name Role Phone Donn Clarke MD Primary Care Provider + Reason for Visit * Reason Comments Follow Up 6 month return. Georgiana ent denied any new concerns, would like to discuss RSV shot Encounter Details Date Type Department Care Team (Latest Contact Info) Description 08/19/2023 9:40 AM EST Office Visit General Internal Medicine [facility] [address] [place] [address] Donn Clarke MD [address] [place] [address] HTN, goal below 140/90*; Bronchiectasis with acute exacerbation (HCC); Postoperative hypothyroidism; Dyslipidemia, goal LDL below 70; PAF (paroxysmal atrial fibrillation) (HCC); Mild depression; ASCVD (arteriosclerotic cardiovascular disease); Gastroesophageal reflux disease without esophagitis; Mixed hyperlipidemia; Moderate persistent asthma with acute exacerbation Allergies Active Allergy Reactions Criticality Noted Date [...] 11/02/2018 Active aspirin enteric coated 81 MG TBECIndications:Donell nary atherosclerosis of ione coronary artery Take 2 Tabs by mouth [...] HFA 108 (90 Base) MCG/ACT Inhalation Aerosol SolutionIndications: Moderate persistent asthma without complication Inhale by mouth 2 Puffs every 6 hours as needed for Shortness of Breath. 18 g 5 08/21/2021 Active Additional Information Patient taking differently:2 Puff Inhalation Q6H PRN, Shortness of Breath,Indications: COPD/breathing, Reported on 09/03/2022 Fluorouracil 5 % External Cream (Efudex)Indications: Actinic keratosis apply to affected areas of face/scalp nightly for 2-3 weeks 40 g 1 10/03/2022 Active Spironolactone 25 MG Oral Tablet (Aldactone) Take one-half Tablet by mouth in the morning. 50 Tablet 3 01/20/2023 Active prednisoLONE Acetate 1 % Ophthalmic Suspension (Pred Forte) PLACE 5 DROPS IN 8 OZ OF SALINE NASAL SOLUTION (DISTILLED WATER AND SALT) USE STERIOD/SALT/MIGUEL NÁGEL ER IRRIGATIONS TWICE PER DAY TO FLUSH NASAL/SINUS CAVITY NOT FOR USE IN EYES 45 mL 3 01/14/2023 01/14/20 24 Active Additional Information Patient not taking.Reported on 08/26/2023 Verapamil HCl ER 120 MG Oral Tablet Extended Release (Isoptin SR)Indications:Coron myra atherosclerosis of ione coronary artery,PAF (paroxysmal atrial fibrillation) (HCC),HTN, goal below 140/90 TAKE ONE TABLET BY MOUTH EVERY MORNING 90 Tablet 4 12/02/2022 12/02/19 24 Active Levothyroxine Sodium 137 MCG Oral TabletIndications:Po stoperative hypothyroidism TAKE ONE TABLET BY MOUTH EVERY DAY ON TUESDAY, TUESDAY, TUESDAY AND TUESDAY (AT LEAST THIRTY MINUTES PRIOR TO BREAKFAST OR OTHER MEDS) 60 Tablet 1 02/18/2023 02/18/20 24 Active Sertraline HCl 50 MG Oral Tablet (Zoloft)Indications: Moderate major depression (HCC) TAKE ONE TABLET BY MOUTH EVERY DAY 100 Tablet 3 03/24/2023 03/23/20 24 Active Ezetimibe 10 MG Oral Tablet (Zetia)Indications:D yslipidemia, goal LDL below 70 TAKE ONE TABLET BY MOUTH EVERY MORNING 90 Tablet 3 03/24/2023 03/23/20 24 Active Montelukast Sodium 10 MG Oral Tablet (Singulair)Indicatio ns:Moderate persistent asthma without complication TAKE 1 TABLET BY MOUTH EVERYDAY AT BEDTIME 90 Tablet 1 05/10/2023 Active Atorvastatin Calcium 80 MG Oral Tablet (Lipitor)Indications :Dyslipidemia, goal LDL below 70 TAKE ONE TABLET BY MOUTH EVERY DAY 90 Tablet 3 05/24/2023 05/23/20 24 Active Triamcinolone Acetonide 55 MCG/ACT Nasal Aerosol (Nasacort Allergy 24HR) Administer 1 Tama into each nostril daily as needed. 0 Active Ipratropium-Albutero l 0.5-2.5 (3) MG/3ML Inhalation Solution (Duoneb)Indications: ALEXANDER (dyspnea on exertion),Acute cough INHALE THE CONTENTS OF ONE VIAL VIA NEBULIZER EVERY 4 HOURS NEEDED FOR SHORTNESS OF BREATH AND OR WHEEZING 1620 mL 0 06/14/2023 06/13/20 24 Active Famotidine 20 MG Oral Tablet (Pepcid)Indications: Gastroesophageal reflux disease TAKE ONE TABLET BY MOUTH TWICE A DAY 180 Tablet 3 06/21/2023 06/20/20 24 Active Losartan Potassium 100 MG Oral Tablet (Cozaar)Indications: HTN, goal below 140/90 TAKE ONE TABLET BY MOUTH EVERY DAY 100 Tablet 3 07/06/2023 07/05/20 24 Active Ipratropium Vancleave 0.06 % Nasal Solution (Atrovent) Administer 1 Tama into each nostril at bedtime. 45 mL 3 08/17/2023 Active Tamsulosin HCl 0.4 MG Oral Capsule (Flomax)Indications: BPH without obstruction/lower urinary tract symptoms TAKE ONE CAPSULE BY MOUTH AT BEDTIME 90 Capsule 2 12/10/2022 09/01/19 24 Discontinu ed(Refill) Fluticasone-Salmeter ol 500-50 MCG/ACT Inhalation Aerosol Powder Breath Activated (Advair Diskus) INHALE ONE PUFF BY MOUTH EVERY MORNING AND ONE PUFF BEFORE BEDTIME 60 Each 12 08/29/2022 09/05/19 24 Discontinu ed(Refill) Levothyroxine Sodium 150 MCG Oral Tablet (Levoxyl)Indications :Congenital hypothyroidism without goiter TAKE ONE TABLET BY MOUTH ON TUESDAY, TUESDAY, AND TUESDAY ONLY 36 Tablet 0 06/21/2023 08/26/19 24 Discontinu ed(Refill) Hospital, Clinic, or Other Facility Administered Medication [...] single drug-eluting stent (3.0 x 15 mm [place]). 3. Successful PCI of ostial to mid [...] L upper back, R deltoid -2011 R tenriism -2012 R temporal scalp -02/2014 BCC L chest -11/2018 BCC R medrano upper HX-MALIG SKIN MELANOMA - 2005 0.56 R post. 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, Hx melanoma in 2005, 0.56 mm on the Right neck; also hx MIS right midback 02/2014; L lower eyelid MIS 02/2018 Coronary atherosclerosis of ione coronary etsella ry 05/16/2007 BPH without obstruction/lower urinary tract [...] recommend f/u 3 years [employer] Other*[id number] 06/05/2007 08/24/2016 Overview: Study Title: Genomic Markers for Patients with Cardiovascular Disease Project # [id number] Car Dumper Operator: Aretha Rodríguez MD [phone] Coronary atherosclerosis of ione coronary artery 05/16/2007 07/27/2019 ADVANCE DIRECTIVE INFORMATION [...] mRNA, LNP-s, No Pre serve, 2-Dose Series (Copious) 10/21/2021,04/20/2021,09/23/2020,02/2021 COVID-19, LNP-s, No Preserve , Justyn-sucrose, Ages 12+ (Pfizer) 10/21/2021 COVID-19, MRNA-LNP, 23-24, P F, 30 MCG/0.3 mL, 12 YRS AND ABOVE, IM ([facility]) 04/12/2023 Covid-19, Mrna, Lnp-s, Pf, B ivalent, 30 Mcg, IM, 12 yrs and above (Pfizer) 04/07/2022 Pneumococcal Conjugate Vacc, 13 Valent (Prevnar) 10/17/2014 Pneumococcal Polysaccharide PPV23 (Pneumovax) 07/30/2011,09/04/2004 Season Influenza, Quad, PF, Adjuvanted, 65+ Yrs, IM (FLUAD) 04/01/2020 Seasonal Influenza Virus Vac cine, Unspecified Formulation 04/01/2020,03/27/2019,03/31/2018,12/2016,04/01/2016,04/02/2015,03/26/20 14,04/17/2013,04/13/2012,04/20/2011,1 ,05/06/2009,05/28/2008,04/12,04/26/2006,05/30/2003, 2 Seasonal Influenza, PF, 6 M & above, IM , (FluLaval or Fluzone) 03/27/2019,03/31/2018 Seasonal Influenza, Quadriva lent Hd (Fluzone Hd) 04/05/2023,03/23/2022,04/15/2021 Seasonal Influenza, Quadriva lent, No Preserve, IM 03/23/2022,04/15/2021,04/01/2020,03/18,03/31/2018,03/23/2017,04/01/20 16,04/02/2015,03/26/2014,04/17/2013,0 04/13/2012,04/20/2011,04/23/2010,05/06,05/28/2008,04/12/2007, 6,05/30/2003,06/04/2002 Seasonal Influenza, Split, I IV3, With Preserve, Inj 04/02/2015,03/26/2014,04/17/2013,03/19,04/20/2011,04/23/2010,05/06/20 09,05/28/2008,04/12/2007,04/26/2006,1 07/30/2002,06/04/2002 06/04/2003 TD - Tetanus/Diptheria (ADULT) 10/25/2007 TDAP (age 10 and older)(Boostrix) 08/20/2013 Varicella Zoster Vaccine (Adult) 10/19/2010 Zoster Vaccine Recombinant (Shingrix) 03/31/2018 ,01/13/2018,10/19/2010 documented as of this encounter Social History Tobacco Use Types Packs/Day Years Used Date Smoking Tobacco: Former Cigarettes 1 25 1 961 - 07/18/1970 Passive Smoke Exposure: Never Smokeless Tobacco: Former Quit: 1971 Tobacco Cessation:Counseling Given: Not Answered Alcohol Use [...] Sign Reading Time Taken Comments Blood Pressure 110/58 08/19/2023 9:32 AM EST Pulse 51 08/19/2023 9:32 AM EST Temperature 36.2 C (97.1 F) 08/19/2023 9:32 AM ES T Respiratory Rate - - Oxygen Saturation 94% 08/19/2023 9:32 AM EST Inhaled Oxygen Concentration - - Weight 85.5 kg (188 lb 6.4 oz) 08/19/2023 9:32 A M EST Height 175.3 cm (5' 9") 08/19/2023 9:32 AM EST Body Mass Index 27.82 08/19/2023 9:32 AM EST documented in this [...] as of this encounter Progress Notes * Donn Clarke MD - 08/19/2023 10:27 AM EST Chief Complaint Patient presents with Follow Up 6 month return. Patient denied any new concerns, would like to discuss RSV shot SUBJECTIVE: Judith Crockett is a 82 year old male with PMH as below who presents for follow up lipids, htn, asthma, bronchiectasis, depression, thyroid. Still with cough, chest congestion, has had for some time, vest didn't help. Did see pulm, bronch next week. No fevers, did see cardiology, felt heart ok. Mood is doing, ok, had pink eye recently, resolved. No n/v/d. Patient Active Problem List Diagnosis Code BPH without obstruction/lower urinary tract symptoms N40.0 Chronic rhinitis J31.0 HX-SKIN MALIGNANCY NEC - multiple BCC Z85.828 HX-MALIG SKIN MELANOMA - 2006 0.56 R post. neck Z85.820 HTN, goal below 140/90 I10 Asthma, moderate persistent J45.40 Beta-blockers contraindicated Z53.09 Hx of actinic keratosis Z87.2 History of pulmonary embolism Z86.711 History of prostate cancer Z85.46 S/P angioplasty with stent Z95.820 Gastroesophageal reflux disease without esophagitis K21.9 Mixed hyperlipidemia E78.2 Mild depression F32.A S/P CABG x 2 Z95.1 Coronary atherosclerosis of ione coronary artery I25.10 Postoperative hypothyroidism E89.0 MGUS (monoclonal gammopathy of unknown significance) D47.2 History of osteoporosis Z87.39 PAF (paroxysmal atrial fibrillation) ([facility]) I48.0 Bronchiectasis without complication ([facility]) J47.9 Dyslipidemia, goal LDL below 70 E78.5 Current Outpatient Medications Medication Sig Dispense Refill [...] FOR USE IN EYES 45 mL 3 Tamsulosin HCl 0.4 MG Oral Capsule (Flomax) TAKE ONE CAPSULE BY MOUTH AT BEDTIME 90 Capsule 2 Verapamil HCl ER 120 MG Oral Tablet Extended Release (Isoptin SR) TAKE ONE TABLET BY MOUTH EVERY MORNING 90 Tablet 4 Fluticasone-Salmeterol 500-50 MCG/ACT Inhalation Aerosol Powder Breath Activated (Advair Diskus) INHALE ONE PUFF BY MOUTH EVERY MORNING AND ONE PUFF BEFORE BEDTIME (Patient taking differently: Inhale1 Puff by mouth in the morning and 1 Puff before bedtime.) 60 Each 12 Levothyroxine Sodium 137 MCG Oral Tablet TAKE ONE TABLET BY MOUTH EVERY DAY ON TUESDAY, TUESDAY, TUESDAY AND TUESDAY (AT LEAST THIRTY MINUTES PRIOR TO BREAKFAST OR OTHER MEDS) 60 Tablet 1 Sertraline HCl 50 MG Oral Tablet (Zoloft) [...] Nasal Aerosol (Nasacort Allergy 24HR) Administer 1 Tama into each nostril daily as needed. Ipratropium-Albuterol 0.5-2.5 (3) MG/3ML Inhalation Solution (Duoneb) INHALE THE CONTENTS OF ONE VIAL VIA NEBULIZER EVERY 4 HOURS NEEDED FOR SHORTNESS OF BREATH AND OR WHEEZING 1620 mL 0 Famotidine 20 MG Oral Tablet (Pepcid) TAKE ONE TABLET BY MOUTH TWICE A DAY 180 Tablet 3 Levothyroxine Sodium 150 MCG Oral Tablet (Levoxyl) TAKE ONE TABLET BY MOUTH ON TUESDAY, TUESDAY, AND TUESDAY ONLY 36 Tablet 0 Losartan Potassium 100 MG Oral Tablet (Cozaar) TAKE ONE TABLET BY MOUTH EVERY DAY 100 Tablet 3 Ipratropium Vancleave 0.06 % Nasal Solution (Atrovent) Administer 1 Tama into each nostril at bedtime. 45 mL 3 Current Facility-Administered Medications Medication Dose Route Frequency Provider Last Rate Last Admin methacholine (0 mg/mL) PLACEBO (Provocholine) inhalation solution 3 mL 3 mL Inhalation Once PRN Macrina Bhat MD Review of patient's allergies indicates: Allergen Reactions Ativan [Lorazepam] Codeine Nausea/vomiting Pollen Wheezing and Cough Health Maintenance Due Topic Date Due DXA Scan 01/27/2023 TSH 06/14/2023 ROS: CONSTITUTIONAL: No weakness and No fevers, sweats, or chills EYE: No diplopia EARS: No ear pain, No drainage, No tinnitus or vertigo, and No recent change in hearing PULMONARY: No rales CARDIOVASCULAR: No orthopnea, No paroxysmal nocturnal dyspnea, No edema, No palpitations, and No syncope GASTROINTESTINAL: No abdominal pain, No change in bowel habits, No significant heartburn, No significant change in appetite, No nausea, vomiting, diarrhea, or constipation, No hematemesis, No blood in stools or black tarry stools, No abdominal bloating or early satiety, and No dysphagia ALL OTHER SYSTEMS NEGATIVE I reviewed social, PMH, PSH, and family history and updated where needed. 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 Employer: [employer] Occupation: retired Tobacco Use Smoking status: Former Packs/day: 1.00 Years: 25.00 Additional pack years: 0.00 Total pack years: 25.00 Types: Cigarettes Start date: 1960 Quit date: 07/18/1970 Years since quittin.1 Passive exposure: Never Smokeless tobacco: Former Quit date: 1970 Vaping Use Vaping Use: Never used Substance and Sexual Activity Alcohol use: Yes Alcohol/week: 5.0 standard drinks of alcohol Types: 5 1.5 oz of liquor per week Comment: one drink a night Drug use: No Sexual activity: Not Currently Other Topics Concern Not on file Social History Narrative No mold 63yrs as of 03/23/2023 Social Determinants of Health Financial Resource Strain: Not on file Food Insecurity: No Food Insecurity (03/23/2023) Hunger Vital Sign Worried About Running Out of Food in the Last Year: Never true Ran Out of Food in the Last Year: Never true Transportation Needs: Not on file Physical Activity: Not on file Stress: Not on file Social Connections: Not on file Intimate Partner Violence: Not on file Housing Stability: Not on file Past Medical History: Diagnosis Date Asthma Asthma, [...] 01/12/2023 Chronic rhinitis 08/03/2002 Coronary atherosclerosis of ione coronary artery 05/16/2007 Dyslipidemia, goal LDL below 100 06/24/2009 Elevated prostate specific antigen (PSA) trus bx done 2000? dr floyd in [place](benign) erectile dysfunction 08/30/2002 History of prostate cancer 12/01/2017 History of pulmonary embolism 06/02/2017 HTN, goal below 140/90 HX-MALIG SKIN MELANOMA - 2006 0.56 R post. neck 09/29/2009 HX-SKIN MALIGNANCY NEC - multiple BCC 09/29/2009 Hypertrophy (benign) of prostate Malignant neoplasm of prostate (HCC) 2005 trus bx 6- MGUS (monoclonal gammopathy of unknown significance) 04/15/2021 Polyp of nasal cavity 11/25/2004 Postoperative anemia due to acute blood loss 07/16/2019 Urinary retention 07/22/2019 Past Surgical History: Procedure Laterality Date ANESTHESIA, OPEN HEART SURGERY, W/O PUMP 07/12/2019 CABG X 2 ARTHO,ZAKI,W/ROTATOR CUFF 10/2001 right shoulder BIOPSY OF EYELID Left 04/07/2020 Dr. Ashraf CABG, ARTERIAL, SINGLE N/A 07/14/2019 CORONARY ARTERY BYPASS GRAFT USING ARTERY 1 GRAFT performed by Genesis Rea MD at OR [facility] CATARACT SURGERY,COMPLEX Bilateral 06/2019 COLONOSCOPY 11/15/2011 adenomatous polyp--repeat 5 years COLONOSCOPY W/ BLEEDING CONTROL 08/18/2007 adenomatous polyps--repeat in 1 year COLONOSCOPY W/ LESION REMOVAL, SNARE 08/22/2008 hyperplastic polyps & lympoid aggregate, recommend f/u 3 years COLONOSCOPY, DIAGNOSTIC (RECTUM) 11/03/2016 TVA polyps, diverticulosis, repeat 3 yrs/COLONOSCOPY FLEXIBLE PROXIMAL DIAGNOSTIC performed by Robyn Heller DO at ENDOSCOPY [facility] COLONOSCOPY, DIAGNOSTIC (RECTUM) 08/11/2020 adenomatous polyps, repeat 5 yrs / COLONOSCOPY FLEXIBLE PROXIMAL DIAGNOSTIC performed by Robyn Heller DO at ENDOSCOPY [facility] CYSTOSCOPY 03/31/2010 DESTROY EYELID MARGIN LESION 03/2018 Dr Ruiz EGD, W/ENDOSCOPIC US 04/13/2011 UPPER GI ENDOSCOPY ENDOSCOPIC ULTRASOUND performed by JEFFRY HINES at ENDOSCOPY [facility] EGD, W/ENDOSCOPIC US 08/02/2012 UPPER GI ENDOSCOPY ENDOSCOPIC ULTRASOUND performed by Robyn Heller DO at OR [facility] EGD, W/ENDOSCOPIC US 06/03/2014 liver cyst, CBD dilation, ESOPHAGOGASTRODUODENOSCOPY (EGD), FLEXIBLE, TRANSORAL, ENDOSCOPIC ULTRASOUND performed by Robyn Heller DO at ENDOSCOPY [facility] ERCP 12/07/2020 choledocholithiasis, stent placed, repeat 4 wks / [facility] ERCP 01/30/2021 Choledocholithiasis, stent removed / [facility] INFORMATION thyroid removed INFORMATION 04/04/2006 Appendectomy INFORMATION Left 2012 Smart Stapes Piston Ear Implant- Mri Safe INTERSTITIAL RADIATION APPLICATION, COMPLEX 08/25/2006 Performed by FADUMO YATES at [facility] Log [id number] LAPAROSCOPY; CHOLECYSTECTOMY 12/09/2020 MISCELLANEOUS ORDER ([facility] ONLY) Left 03/08/2018 Take Down of Asael's Flap - Dr. Pascale GARCIA, 1ST STAGE; FACE, HANDS, FEET, NERVE Left 02/15/2018 Dr. Ashraf-left lower lid MOH's repair NASAL/SINUS ENDOSCOPY, SURGICAL ?1989 Dr Santillan at [facility] NASAL/SINUS ENDOSCOPY, SURGICAL 09/2002 Dt Stetz NEEDLE/CATHETER PLACEMENT, PROSTATE 08/25/2006 Performed by FADUMO YATES at [facility] Log [id number] REMOVAL OF APPENDIX 2005 REPAIR ARM TENDON/MUSCLE 2000 REVISION OF MIDDLE EAR BONE 06/26/2013 STAPEDECTOMY REESTABLISH OSSICULAR CONTINUITY performed by Jose Morrison MD at [facility] ULTRASONIC GUIDE, INTERSTITIAL RADIOELEMENT 08/25/2006 Performed by FADUMO YATES at [facility] Log [id number] UMBIL HERNIA REPAIR (REDUCIBLE) AGE 5+YR 11/2020 Dr. leiva US ENDOSCOPIC 01/30/2021 kidney cyst / [facility] US TRANSRECTAL (GEN SURG) 12/2005 trus biopsy VASECTOMY 01/1998 dr valdivia Family History Problem Relation Age of Onset Cancer Father prostate,bladder Cancer Mother breast Stroke Mother Other (pulmonary embolism [Other]) Father after dx with cancer OBJECTIVE: PHYSICAL EXAM: BP 110/58 | Pulse 51 | Temp 36.2 C (97.1 F) (Tympanic) | Ht 1.753 m (5' 9") | Wt 85.5 kg (188 lb 6.4 oz) | SpO2 94% | BMI 27.82 kg/m | BSA 2.04 m General: alert, healthy, and no distress Head: Normocephalic, No masses, lesions, tenderness or abnormalities Eye Exam: conjunctiva are pink and non-injected, sclera clear Ears: External ears normal, Canals clear, TM's Normal Heart: regular rate & rhythm, no murmur, no gallops, PMI non-displaced, S-1 normal, and S-2 normal Lungs: normal respiratory rate and rhythm, lungs clear to auscultation Extremities: no edema, no clubbing, no cyanosis Psych: normal affect, no flight of ideas or tangential thought, good eye contact, no pressured speech 08/17/23 pulm: Bds, dindt tolerate HTS in the past. C/w vest Repeat CT chest and Bronch- send for Bacterial and AFB. AEC/IgE- not s/o ABPA. 05/05/23 ct: 1. Tree-in-bud nodularity likely due to an infective process 2. Bronchiectasis with mucous plugging 05/26/23 cardiology: RECOMMENDATIONS/PLAN: Continue as prescribed, without change. 10 pound weight loss recommended by next evaluation. Pulmonary Rehabilitation discussed. Cardiology follow-up in 6 months or as needed. ER with emergencies. 01/14/23 ent: I discussed the history and findings of the prior examinations and imaging and the prior culture results with the patient in detail. We discussed causes for PND, as this is his been his most bothersome symptom recently. These include CRS/sinus drainage (he was actively infected at his recent endoscopy, which is likely contributing), LPR (which he likely has some component of), AR (suspected, no recent work-up/management for this), and VMR. We discussed that he feels he has hit a plateau with medical management. We discussed that if his sinonasal symptoms/quality of life are suboptimally controlled with medical management, revision surgery may be considered. This could be focused on the posterior sinus region (his main area of concern) or could be a full revision sinus surgery. We did discuss his history of reported skull base injury requiring repair in a prior case. We did discuss that the decision to pursue surgery should be made in the context of his overall health and in collaboration with his other providers, including his pulmonary and cardiac teams. He will discuss with his other providers and further consider his options. - Continue steroid irrigations for now. Risks reviewed. Need for routine eye exams reviewed. - Continue atrovent spray, BID up to QID, risks reviewed. - We will also make sure his LPR is optimized either per his PCP or GI consultation. - Follow-up with Pulmonology - Follow-up with Cardiology - Follow-up in 6 months, sooner if needed or surgical management is elected. ASSESSMENT: I10 HTN, goal below 140/90 (primary encounter diagnosis) J47.1 Bronchiectasis with acute exacerbation (HCC) E89.0 Postoperative hypothyroidism E78.5 Dyslipidemia, goal LDL below 70 I48.0 PAF (paroxysmal atrial fibrillation) (HCC) F32.A Mild depression I25.10 ASCVD (arteriosclerotic cardiovascular disease) K21.9 Gastroesophageal reflux disease without esophagitis E78.2 Mixed hyperlipidemia J45.41 Moderate persistent asthma with acute exacerbation PLAN: HTN, goal below 140/90 (Primary) Cont losartan, aldactone, verapamil Bronchiectasis with acute exacerbation (HCC) Await bronch, ct Appreciate pulm aid Vest not helpful Cont neds, inhalers Postoperative hypothyroidism - TSH; Future; Expected date: 08/19/2023 Cont levothyroxine Labs soon Dyslipidemia, goal LDL below 70 - COMPREHENSIVE METABOLIC PANEL; Future; Expected date: 08/19/2023 - LIPID PANEL WITH DIRECT LDL IF TG IS HIGH; Future; Expected date: 08/19/2023 Cont statin, zetia PAF (paroxysmal atrial fibrillation) (HCC) Sees cardiology Mild depression Cont sertraline ASCVD (arteriosclerotic cardiovascular disease) Cont med per cardiology Gastroesophageal reflux disease without esophagitis On famotidine Mixed hyperlipidemia Cont meds as above Moderate persistent asthma with acute exacerbation Cont inhalers, nebs Await ct, bronch Follow Up: Return in about 6 months (around 02/17/2024), or if symptoms worsen or fail to improve, for Labs Today. | For: Labs Today Discussed rsv vaccine Donn Clarke MD documented in this encounter Nursing Notes * Akanksha Novak MED ASSIST - 08/19/2023 9:36 AM EST Chief Complaint Patient presents with Follow Up 6 month return. Patient denied any new concerns, would like to discuss RSV shot documented in this encounter Miscellaneous Notes * Addendum Note - Donn Clarke MD - 09/16/2023 8:10 AM ESTAddended by: DONN CLARKE on: 09/16/2023 08:10 AM Modules accepted: Orders * Addendum Note - Donn Clarke MD - 08/21/2023 2:47 PM ESTAddended by: DONN CLAREK on: 08/21/2023 02:47 PM Modules accepted: Orders documented in this encounter Plan of Treatment Upcoming Encounters Date Type Department Care Team (Late st Contact Info) Description 11/25/2023 10:00 AM EDT Office Visit Cardiology, [facility] [place] [id number] Jonnathan Song PA-C [address] [facility] [place] [address] 12/08/2023 3:30 PM EDT Office Visit Dermatology [facility] [address] [place] [address] Ama Galvez MD [address] [place] [address] [address] 02/15/2024 10:00 AM EDT Laboratory Laboratory, [facility] [address] [facility] [place] [id number] Paulette Hernandez [facility] [address] [facility] [place] [address] 02/22/2024 2:30 PM EDT Office Visit Hematology/Oncology [facility] [address] [place] [phone] Smita Miller MD [address] [place] [address] 02/24/2024 9:20 AM EDT [facility] [address] [facility] [place] [address] Donn Clarke MD [address] [facility] [place] [address] 03/26/2024 10:30 AM EDT Nurse Only Ancillary [facility] [address] [place] [address] [facility], Nurse Annual Wellness [facility] [address] [facility] [address] Scheduled Orders Name Type Priority Associated Diagnoses Orde r Schedule TSH Lab Routine Postoperative hypothyroidism Expected: 10/17/2023 (Approximate), Expires: 09/15/2024 Scheduled Procedures Name Priority Associated Diagnoses Date/Ti me COLONOSCOPY FLEXIBLE PROXIMAL DIAGNOSTIC Recall History of colon polyps Health Maintenance Due Date Last Done Comments DXA Scan 01/27/2023 01/28/2020, 03/13/2008 DTaP,Tdap,and Td Vaccines (2 - Td or Tdap) 08/20/2023 08/20/2013, 10/25/2007 Depression Screening 03/23/2024 03/23/2023, 10/18/19 15 GFR 08/19/2024 08/19/2023, 0802/2023, 12/02/2022, Additional history exists TSH 09/14/2024 09/15/2023, 020 08/2023, 06/14/2022, Additional history exists Albumin/Creatinine Ratio [...] this encounter Medical Devices Implanted Type Area Emergency Manager Device Identifier Shelf Expiration Date Model / Serial / Lot Piston Smart .6x4.25 [id number] - [id number] Implanted:Qty : 1 on 06/26/2013 at OR [facility] Left: Ear GYRUS : ENT 05/17/2022 [id number] / / [id number] Suture Steel 6 B&S19 [id number] - [id number] Implanted:Qty : 4 on 07/14/2019 by Genesis Rea MD at OR [facility] N/A: Sternum JNJ : [employer] 03/17/2024 [id number] / / [id number] documented as of this encounter Results * (ABNORMAL) TSH (09/15/2023 10:26 AM EST) TSH 0.06(L) 0.27 - 4.20 uIU/mL 09/15/2023 8:01 PM EST [facility] Blood Venous blood specimen / Unknown Venipuncture / Unknown 09/15/2023 10:26 AM EST 09/15/2023 10:26 AM EST Donn Clarke MD LAB BLOOD ORDERA BLES LAB[facility] [address] [place] [address] * (ABNORMAL) TSH (08/19/2023 10:18 AM EST) TSH 0.06(L) 0.27 - 4.20 uIU/mL 08/19/2023 9:56 PM EST [facility]ORY [facility] Blood Venous blood specimen / Unknown Venipuncture / Unknown 08/19/2023 10:18 AM EST 08/19/2023 10:18 AM EST Donn Clarke MD LAB BLOOD ORDERA BLES [facility] [address] [place], [place] [id number] * LIPID PANEL WITH DIRECT LDL IF TG IS HIGH (08/19/2023 10:18 AM EST) Triglycerides 90 <=174 mg/dL 08/19/2023 9:23 PM EST [facility] Comment: Triglyceride Reference Ranges (mg/dL): <150 Acceptable 150-174 Borderline high 175-499 High >=500 Very high Cholesterol 137 <200 mg/dL 08/19/2023 9:23 PM EST [facility] Comment: Total Cholesterol Reference Ranges (mg/dL): <200 Desirable 200-239 Borderline high >=240 High HDL Cholesterol 55 >39 mg/dL 9:23 PM EST [facility] Comment: HDL Cholesterol Reference Ranges (mg/dL): >=60 High (Desirable) <50 Low (Undesirable) For Females <40 Low (Undesirable) For Males Non-HDL Cholesterol 82 <=159 mg/dL 08/19/2023 9:23 PM EST [facility] Comment: Non-HDL Cholesterol Reference Range (mg/dL): <100 Target level for high risk ASCVD patient <130 Optimal for general population 130-159 Near optimal for general population 160-189 Borderline High 190-219 High >=220 Very High LDL Cholesterol 64 <=129 mg/dL 08/19/2023 9:23 PM EST LAB[facility]ORY [facility] Comment: LDL Cholesterol Reference Ranges (mg/dL): <70 Target level for high risk ASCVD patient <100 Optimal for general population 100-129 Near optimal for general population 130-159 Borderline high 160-189 High >=190 Very high Blood Venous blood specimen / Unknown Venipuncture / Unknown 08/19/2023 10:18 AM EST 08/19/2023 10:18 AM EST Donn Clarke MD LAB BLOOD ORDERA BLES [facility] [address] [place] [address] * COMPREHENSIVE METABOLIC PANEL (08/19/2023 10:18 AM EST) BUN 17 6 - 20 mg/dL 08/19/2023 11:20 AM [facility] 56- Creatinine 1.2 0.6 - 1.2 mg/dL 08/19/2023 11:20 AM [facility] 56- Estimated Glomerular Filtration Rate 64 >=60 mL/min 08/19/2023 11:20 AM [facility] 56- Comment:eGFR is calculated b ased on the CKD-EPI 2020 equation Sodium 139 135 - 146 mmol/L 08/19/2023 11:20 AM [facility] 56- Potassium 4.3 3.5 - 5.1 mmol/L 08/19/2023 11:20 AM [facility] 56- Chloride 104 98 - 107 mmol/L 08/19/2023 11:20 AM [facility] 56- CO2 23 22 - 32 mmol/L 08/19/2023 11:20 AM [facility] 56- Anion Gap 12 7 - 15 mmol/L 08/19/2023 11:20 AM [facility] 56- Glucose 90 70 - 120 mg/dL 08/19/2023 11:20 AM [facility] 56- Albumin 4.0 3.8 - 5.0 g/dL 08/19/2023 11:20 AM [facility] 56- AST 16 10 - 50 U/L 08/19/2023 11:20 AM [facility] 56- Alkaline Phosphatase 108 35 - 130 U/L 08/19/2023 11:20 AM [facility] 56- Bilirubin, Total 0.8 <=1.2 mg/dL 08/19/2023 11:20 AM [facility] 56- Calcium 9.7 8.4 - 10.2 mg/dL 08/19/2023 11:20 AM [facility] 56- Protein 6.2 6.0 - 8.3 g/dL 08/19/2023 11:20 AM EST [facility] 56- ALT 17 10 - 50 U/L 08/19/2023 11:20 AM EST [facility] 56- Blood Venous blood specimen / Unknown Venipuncture / Unknown 08/19/2023 10:18 AM EST 08/19/2023 10:18 AM EST Donn Clarke MD LAB BLOOD ORDERA BLES [facility]- [address] [facility] [address] documented in this encounter Visit Diagnoses Diagnosis HTN, goal below 140/90- Primary Unspecified essential hypertension Bronchiectasis with acute exacerbation (HCC) Bronchiectasis with acute exacerbation Postoperative hypothyroidism Postsurgical hypothyroidism Dyslipidemia, goal LDL below 70 Other and unspecified hyperlipidemia PAF (paroxysmal atrial fibrillation) (HCC) Atrial fibrillation Mild depression Depressive disorder, not elsewhere classified ASCVD (arteriosclerotic cardiovascular disease) Unspecified cardiovascular disease Gastroesophageal reflux disease without esophagitis Esophageal reflux Mixed hyperlipidemia Moderate persistent asthma with acute exacerbation documented in this encounter Additional Health Concerns Infection Onset Date Last Indicated Resolved Time Respiratory Rule-Out 08/26/2023 08/26/2023 024 6:12 PM EST documented as of this encounter Advance Directives Latest Code Status [...] and were consensually agreed upon. Care Teams Equipment Maintenance Supervisor Relationship Specialty Start Date End Date [facility]n [facility] [address] [facility] [address] P[facility] - General Internal Medicine 12/17/15 documented as of this encounter
--- OUTSIDE RECORDS SUMMARY | 2023-11-25 09:24 | External Medical Summary | Summary of Care ---
Author Name Unknown Organization [facility] Address [address] [place] [address] Phone [phone] Care Team Providers Care Tumbler Operator Name Role Phone Donn Clarke MD Primary Care Provider + Reason for Visit * Reason Comments Outpatient Testing Encounter Details Date Type Department Care Team (Late st Contact Info) Description 11/04/2023 9:10 AM EDT Laboratory Laboratory, [facility] [address] [place] [address] [facility] [address] [place] [address] Postoperative hypothyroidism Allergies Active Allergy Reactions Criticality Noted Date Comments Lorazepam Low 07/27/2019 Codeine Nausea/vomiting Low 10/31/2018 Pollen Wheezing,Cough Low 11/30/2016 documented as of this encounter (statuses as of 11/04/2023) Medications Medication Sig Dispensed Refills Start Date [...] coated 81 MG TBECIndications:Coron myra atherosclerosis of [place] coronary artery Take 2 Tabs by mouth [...] Extended Release (Isoptin SR)Indications:[place] ry atherosclerosis of [place] coronary artery,PAF (paroxysmal atrial fibrillation) (HCC),HTN, goal [...] Nasal Aerosol (Nasacort Allergy 24HR) Administer 1 [place] into each nostril daily as needed. 0 [...] 100 Tablet 3 07/06/2023 4 Active Ipratropium [place] 0.06 % Nasal Solution (Atrovent) Administer 1 [place] into each nostril at bedtime. 45 mL [...] as of this encounter (statuses as of 11/04/2023) Active Problems Problem Noted Date Diagnosed Date [...] (3.0 x 34, 2.5 x 12 mm [place]). History of prostate cancer 12/01/2017 History of pulmonary embolism 06/02/2017 Hx of actinic keratosis 09/03/2016 Beta-blockers contraindicated 10/17/2014 Overview: HR controlled Asthma, moderate persistent 02/10/2011 HTN, goal below 140/90 01/21/2010 HX-SKIN MALIGNANCY NEC - multiple BCC 09/29/2009 Overview: BCCs: -2005 L neck -2006 L ala, R flank, L cheek, midback -2007 L upper back, R deltoid -2011 R [facility]ist -2012 R temporal scalp -02/2014 BCC L chest -11/2018 BCC R medrano upper HX-MALIG SKIN MELANOMA - 2006 0.56 R post. 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, Hx melanoma in 2006, 0.56 mm on the Right neck; also hx MIS right midback 02/2014; L lower eyelid MIS 02/2018 Coronary atherosclerosis of [place] coronary estella ry 05/16/2007 BPH without obstruction/lower urinary tract symp toms 08/03/2002 Chronic rhinitis 08/03/2002 documented as of this encounter (statuses as of 11/04/2023) Resolved Problems Problem Noted Date Diagnosed Date [...] recommend f/u 3 years [employer] Other*[id number] 06/05/2007 08/24/2016 Overview: Study Title: Genomic Markers for Patients with Cardiovascular Disease Project # [id number] Financial Planner: Aretha Rodríguez MD [phone] Coronary atherosclerosis of [place] coronary artery 05/16/2007 07/27/2019 ADVANCE DIRECTIVE INFORMATION [...] as of this encounter (statuses as of 11/04/2023) Immunizations Name Administration Dates Next Due COVID-19 mRNA, LNP-s, No Pre serve, 2-Dose Series (Celeno) 10/21/2021,04/20/2021,09/23/2020,08/25 COVID-19, LNP-s, No Preserve , Justyn-sucrose, Ages 12+ (Pfizer) 10/21/2021 COVID-19, MRNA-LNP, 23-24, P F, 30 MCG/0.3 mL, 12 YRS AND ABOVE, IM (PFIZER-Comirnaty) 04/12/2023 Covid-19, Mrna, Lnp-s, Pf, B ivalent, 30 Mcg, IM, 12 yrs and above (Celeno) 04/07/2022 Pneumococcal Conjugate Vacc, 13 Valent (Prevnar) [...] 11/17/2023 1:30 PM EDT Office Visit Cardiology, [facility] [address] [place] [address] Jonnathan Song PA-C [address] [place] [address] 12/08/2023 3:30 PM EDT Office Visit Dermatology [facility] [address] [facility] [place] [address] Ama Galvez MD [address] [facility] [place] [address] 02/15/2024 10:00 AM EDT Laboratory Laboratory, [facility] [address] [phone] Paulette Hernandez [facility] [address] [facility] [address] 02/22/2024 2:30 PM EDT Office Visit Hematology/Oncology [facility] [address] [facility] [place] [phone] Smita Miller MD [address] [facility] [place] [address] 02/24/2024 9:20 AM EDT Office Visit General Internal Medicine [facility] [address] [facility] [place] [address] Donn Clarke MD [address] [facility] [place] [address] 03/26/2024 10:30 AM EDT Nurse Only Ancillary [facility] [address] [place] [address] Hernandez, Nurse Annual Wellness [address] [address] Pending Results Name Type Priority Associated Diagnoses Date /Time TSH Lab Routine Postoperative hypothyroidism 11/04/2023 8:38 AM EDT Scheduled Procedures Name Priority Associated Diagnoses Date/Ti me COLONOSCOPY FLEXIBLE PROXIMAL DIAGNOSTIC Recall History of colon polyps Health Maintenance Due Date Last Done Comments DXA Scan 01/27/2023 01/28/2020, 03/13/2008 DTaP,Tdap,and Td Vaccines (2 - Td or Tdap) 08/20/2023 08/20/2013, 10/25/2007 GFR 08/19/2024 08/19/2023, 08/0 02/2023, 12/02/2022, Additional history exists TSH 10/11/2024 10/12/2023, 08/19, 08/19/2023, Additional history exists Albumin/Creatinine Ratio 04/22/2025 022, [...] this encounter Medical Devices Implanted Type Area Blocklayer Device Identifier Shelf Expiration Date Model / Serial / Lot Jenna Smart .6x4.25 [id number] - [id number] Implanted:Qty : 1 on 06/26/2013 at [place] [facility] Left: Ear GYRUS : ENT 05/17/2022 [id number] / / [id number] Suture Steel 6 B&S19 M654g - [id number] Implanted:Qty : 4 on 07/14/2019 by Genesis Rea MD at [place] [facility] N/A: Sternum JNJ : [employer] 03/17/2024 [id number] / / [id number] documented as of this encounter Visit Diagnoses [...] and were consensually agreed upon. Care Teams Tumbler Operator Relationship Specialty Start Date End Date Donn Clarke MD [address] [place] [address] PCP - General Internal Medicine 12/17/15 documented as of this encounter
--- OUTSIDE RECORDS SUMMARY | 2023-11-25 09:24 | External Medical Summary | Summary of Care ---
Author Name Unknown Organization [facility] Address [address] [place] [address] Phone [phone] Care Team Providers Care Sewer Line Repairer Name Role Phone Donn Clarke MD Primary Care Provider + Reason for Visit * Reason Onset Date Comments Test Results 10/13/2023 Encounter Details Date Type Department Care Team (Late st Contact Info) Description 10/13/2023 Telephone General Internal Medicine [facility] [address] [place] [address] Donn Clarke MD [address] [facility] [place] [address] Test Results Allergies Active Allergy Reactions Criticality Noted Date Comments Lorazepam Low 07/27/2019 Codeine Nausea/vomiting Low 10/31/2018 Pollen Wheezing,Cough Low 11/30/2016 documented as of this encounter (statuses as of 10/13/2023) Medications Medication Sig Dispensed Refills Start Date [...] coated 81 MG TBECIndications:Donell nary atherosclerosis of [place] coronary artery Take 2 Tabs by mouth [...] Extended Release (Isoptin SR)Indications:Coron myra atherosclerosis of [place] coronary artery,PAF (paroxysmal atrial fibrillation) (HCC),HTN, goal below 140/90 TAKE ONE TABLET BY MOUTH EVERY MORNING 90 Tablet 4 12/02/2022 12/02/19 24 Active Sertraline HCl 50 MG Oral [...] Nasal Aerosol (Nasacort Allergy 24HR) Administer 1 [place] into each nostril daily as needed. 0 [...] Tablet 3 07/06/2023 07/05/20 24 Active Ipratropium [place] 0.06 % Nasal Solution (Atrovent) Administer 1 [place] into each nostril at bedtime. 45 mL 3 08/17/2023 Active Tamsulosin HCl 0.4 MG Oral Capsule (Flomax)Indications: BPH without obstruction/lower urinary tract symptoms TAKE ONE CAPSULE BY MOUTH AT BEDTIME 90 Capsule 2 09/01/2023 Active Fluticasone-Salmeter ol 500-50 MCG/ACT Inhalation Aerosol Powder Breath Activated (Advair Diskus) INHALE ONE PUFF BY MOUTH EVERY MORNING AND ONE PUFF BEFORE BEDTIME 60 Each 12 09/05/2023 09/04/19 25 Active Amoxicillin-Pot Clavulanate 875-125 MG Oral Tablet (Augmentin) Take 1 Tablet by mouth in the morning and 1 Tablet before bedtime. 20 Tablet 0 09/05/2023 Active Levothyroxine Sodium 125 MCG Oral Tablet (Levoxyl)Indications :Postoperative hypothyroidism Take 1 Tablet by mouth daily first thing in the morning. (at least 30 min prior to breakfast or other meds) 90 Tablet 1 10/13/2023 Active Levothyroxine Sodium 137 MCG Oral TabletIndications:Po stoperative hypothyroidism Take 1 Tablet by mouth daily first thing in the morning. 0 09/16/2023 10/13/19 24 Discontinu ed(Medicat ion/Dose Changed) Levothyroxine Sodium 125 MCG Oral Tablet (Levoxyl) Take 1 Tablet by mouth daily first thing in the morning. (at least 30 min prior to breakfast or other meds) 0 10/13/19 24 Discontinu ed(Refill) Hospital, Clinic, or Other Facility Administered Medication Ordered Dose Route Frequency Start Date End Date Status methacholine (0 mg/mL) [place] (Provocholine) inhalation solution 3 mLIndications:Shortness of breath 3 mL IN ONCE PRN 07/14/2022 Active documented as of this encounter (statuses as of 10/13/2023) Active Problems Problem Noted Date Diagnosed Date [...] L upper back, R deltoid -2011 R religious -2012 R temporal scalp -02/2014 BCC L chest -11/2018 BCC R medrano upper HX-MALIG SKIN MELANOMA - 2005 0.56 R post. 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, Hx melanoma in 2005, 0.56 mm on the Right neck; also hx MIS right midback 02/2014; L lower eyelid MIS 02/2018 Coronary atherosclerosis of [place] coronary estella ry 05/16/2007 BPH without obstruction/lower urinary tract symp toms 08/03/2002 Chronic rhinitis 08/03/2002 documented as of this encounter (statuses as of 10/13/2023) Resolved Problems Problem Noted Date Diagnosed Date [...] recommend f/u 3 years [employer] Other*[id number] 06/05/2007 08/24/2016 Overview: Study Title: Genomic Markers for Patients with Cardiovascular Disease Project # [id number] Sap Payroll Consultant: Aretha Rodríguez MD [phone] Coronary atherosclerosis of [place] coronary artery 05/16/2007 07/27/2019 ADVANCE DIRECTIVE INFORMATION [...] as of this encounter (statuses as of 10/13/2023) Immunizations Name Administration Dates Next Due COVID-19 mRNA, LNP-s, No Pre serve, 2-Dose Series ([employer]) 10/21/2021,04/20/2021,09/23/2020,08/25 COVID-19, LNP-s, No Preserve , Justyn-sucrose, [...] encounter Miscellaneous Notes * Telephone Encounter - Kishore, ISRAEL Vale - 10/13/2023 8:21 AM EDT Patient aware and verbalized understanding, med pended * Telephone Encounter - Akanksha Novak MED ASSIST - 10/13/2023 8:16 AM EDT ----- Message from Donn Clarke MD sent at 10/13/2023 8:10 AM EDT ----- Tsh still low, would cut back dose of levothyroxine to 125 mcg daily, recheck tsh 4 weeks to trend documented in this encounter Plan of Treatment Upcoming Encounters Date Type Department Care Team (Late st Contact Info) Description 11/17/2023 1:30 PM EDT [facility] [address] [place] [address] Jonnathan Song PA-C [address] [place] [address] 12/08/2023 3:30 PM EDT Office Visit Dermatology [facility] [address] [place] [address] Ama Galvez MD [address] [place] [address] [place] [address] 02/15/2024 10:00 AM EDT [facility] [address] [place] [phone] Paulette Hernandez [address] [place] [address] 02/22/2024 2:30 PM EDT Office Visit Hematology/Oncology [facility] [address] [facility] [place] [phone] Smita Miller MD [address] [place] [address] 02/24/2024 9:20 AM EDT Office Visit General Internal Medicine [facility] [address] [facility] [place], [place] [address] Donn Clarke MD 200 [facility] [place], [place] [address] 03/26/2024 10:30 AM EDT Nurse Only Ancillary [facility] [address] [facility] [address] [facility], Nurse Annual Wellness [facility] [address] [facility] [address] Scheduled Procedures Name Priority Associated Diagnoses Date/Ti me COLONOSCOPY FLEXIBLE PROXIMAL DIAGNOSTIC Recall History of colon polyps Health Maintenance Due Date Last Done Comments DXA Scan 01/27/2023 01/28/2020, 03/13/2008 DTaP,Tdap,and Td Vaccines (2 - Td or Tdap) 08/20/2023 08/20/2013, 10/25/2007 Depression Screening 03/23/2024 03/23/2023, 10/18/19 15 GFR 08/19/2024 08/19/2023, 0802/2023, 12/02/2022, Additional history exists TSH 10/11/2024 10/12/2023, [...] this encounter Medical Devices Implanted Type Area Director Script Device Identifier Shelf Expiration Date Model / Serial / Lot Piston Smart .6x4.25 [id number] - [id number] Implanted:Qty : 1 on 06/26/2013 at [facility] Left: Ear GYRUS : ENT 05/17/2022 [id number] / / [id number] Suture Steel 6 B&S19 M654g - [id number] Implanted:Qty : 4 on 07/14/2019 by Genesis Rea MD at OR [facility] N/A: Sternum JNJ : [employer] 03/17/2024 [id number] / / [id number] documented as of this encounter Visit Diagnoses Diagnosis Postoperative hypothyroidism- Primary Postsurgical hypothyroidism documented in this encounter Advance [...] and were consensually agreed upon. Care Teams Sewer Line Repairer Relationship Specialty Start Date End Date Donn Clarke MD 200 [facility] [place] [address] PCP - General Internal Medicine 12/17/15 documented as of this encounter
--- OUTSIDE RECORDS SUMMARY | 2023-11-25 09:24 | External Medical Summary | Summary of Care ---
Author Name Unknown Organization [facility] Address [address] [place] [address] Phone [phone] Care Team Providers Care Area Development Consultant Name Role Phone Donn Clarke MD Primary Care Provider + Reason for Visit * Reason Comments Outpatient Testing Encounter Details Date Type Department Care Team (Late st Contact Info) Description 09/15/2023 10:50 AM EST Laboratory Laboratory, [facility] [address] [place] [address] [facility] [address] [place] [address] Postoperative hypothyroidism Allergies Active Allergy Reactions Criticality Noted Date Comments Lorazepam Low 07/27/2019 Codeine Nausea/vomiting Low 10/31/2018 Pollen Wheezing,Cough Low 11/30/2016 documented as of this encounter (statuses as of 09/15/2023) Medications Medication Sig Dispensed Refills Start Date [...] coated 81 MG TBECIndications:Donell nary atherosclerosis of [place] coronary artery Take 2 Tabs by mouth [...] Extended Release (Isoptin SR)Indications:Coron myra atherosclerosis of [place] coronary artery,PAF (paroxysmal atrial fibrillation) (HCC),HTN, goal below 140/90 TAKE ONE TABLET BY MOUTH EVERY MORNING 90 Tablet 4 12/02/2022 4 Active Levothyroxine Sodium 137 MCG Oral TabletIndications:Po stoperative hypothyroidism TAKE ONE TABLET BY MOUTH EVERY DAY ON TUESDAY, TUESDAY, TUESDAY AND TUESDAY (AT LEAST THIRTY MINUTES PRIOR TO BREAKFAST OR OTHER MEDS) 60 Tablet 1 02/18/2023 4 Active Sertraline HCl 50 MG Oral Tablet (Zoloft)Indications: Moderate major depression (HCC) TAKE ONE TABLET BY MOUTH EVERY DAY 100 Tablet 3 03/24/2023 4 Active Ezetimibe 10 MG Oral Tablet (Zetia)Indications:D [...] Nasal Aerosol (Nasacort Allergy 24HR) Administer 1 Cameron into each nostril daily as needed. 0 Active Ipratropium-Albutero l 0.5-2.5 (3) MG/3ML Inhalation Solution (Duoneb)Indications: ALEXANDER (dyspnea on exertion),Acute cough INHALE THE CONTENTS OF ONE VIAL VIA NEBULIZER EVERY 4 HOURS NEEDED FOR SHORTNESS OF BREATH AND OR WHEEZING 1620 mL 0 06/14/2023 4 Active Famotidine 20 MG Oral Tablet (Pepcid)Indications: Gastroesophageal reflux disease TAKE ONE TABLET BY MOUTH TWICE A DAY 180 Tablet 3 06/21/2023 4 Active Losartan Potassium 100 MG Oral Tablet (Cozaar)Indications: HTN, goal below 140/90 TAKE ONE TABLET BY MOUTH EVERY DAY 100 Tablet 3 07/06/2023 4 Active Ipratropium Henriette 0.06 % Nasal Solution (Atrovent) Administer 1 Cameron into each nostril at bedtime. 45 mL 3 08/17/2023 Active Levothyroxine Sodium 150 MCG Oral Tablet (Levoxyl)Indications :Congenital hypothyroidism without goiter TAKE ONE TABLET BY MOUTH ON TUESDAY AND TUESDAY ONLY, Levothyroxine 137mcg all other days. 24 Tablet 0 08/26/2023 Active Tamsulosin HCl 0.4 MG Oral Capsule (Flomax)Indications: BPH without obstruction/lower urinary tract symptoms TAKE ONE CAPSULE BY MOUTH AT BEDTIME 90 Capsule 2 09/01/2023 Active Fluticasone-Salmeter ol 500-50 MCG/ACT Inhalation Aerosol Powder Breath Activated (Advair Diskus) INHALE ONE PUFF BY MOUTH EVERY MORNING AND ONE PUFF BEFORE BEDTIME 60 Each 12 09/05/2023 Active Amoxicillin-Pot Clavulanate 875-125 MG Oral Tablet (Augmentin) Take 1 Tablet by mouth in the morning and 1 Tablet before bedtime. 20 Tablet 0 09/05/2023 Active Hospital, Clinic, or Other Facility Administered Medication Ordered Dose Route Frequency Start Date End Date Status methacholine (0 mg/mL) PLACEBO (Provocholine) inhalation solution 3 mLIndications:Shortness of breath 3 mL IN ONCE PRN 07/14/2022 Active documented as of this encounter (statuses as of 09/15/2023) Active Problems Problem Noted Date Diagnosed Date [...] single drug-eluting stent (3.0 x 15 mm [place]). 3. Successful PCI of ostial to mid LAD with 2 overlapping drug-eluting stents (3.0 x 34, 2.5 x 12 mm Vinod). History of prostate cancer 12/01/2017 History of pulmonary embolism 06/02/2017 Hx of actinic keratosis 09/03/2016 Beta-blockers contraindicated 10/17/2014 Overview: HR controlled Asthma, moderate persistent 02/10/2011 HTN, goal below 140/90 01/21/2010 HX-SKIN MALIGNANCY NEC - multiple BCC 09/29/2009 Overview: BCCs: -2006 L neck -2006 L ala, R flank, L cheek, midback -2007 L upper back, R deltoid -2011 R lutheran -2012 R temporal scalp -02/2014 BCC L chest -11/2018 BCC R medrano upper HX-MALIG SKIN MELANOMA - 2005 0.56 R post. 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, Hx melanoma in 2005, 0.56 mm on the Right neck; also hx MIS right midback 02/2014; L lower eyelid MIS 02/2018 Coronary atherosclerosis of [place] coronary estella ry 05/16/2007 BPH without obstruction/lower urinary tract symp toms 08/03/2002 Chronic rhinitis 08/03/2002 documented as of this encounter (statuses as of 09/15/2023) Resolved Problems Problem Noted Date Diagnosed Date [...] recommend f/u 3 years [employer] Other*[id number] 06/05/2007 08/24/2016 Overview: Study Title: Genomic Markers for Patients with Cardiovascular Disease Project # [id number] Steam Fitter Supervisor: Aretha Rodríguez MD [phone] Coronary atherosclerosis of [place] coronary artery 05/16/2007 07/27/2019 ADVANCE DIRECTIVE INFORMATION [...] as of this encounter (statuses as of 09/15/2023) Immunizations Name Administration Dates Next Due COVID-19 mRNA, LNP-s, No Pre serve, 2-Dose Series (yavalu) 10/21/2021,04/20/2021,09/23/2020,08/25 COVID-19, LNP-s, No Preserve , Justyn-sucrose, Ages 12+ (Pfizer) 10/21/2021 COVID-19, MRNA-LNP, 23-24, P F, 30 MCG/0.3 mL, 12 YRS AND ABOVE, IM (Santh [employer] Microgrid-Comirnaty) 04/12/2023 Covid-19, Mrna, Lnp-s, Pf, B ivalent, [...] 11/25/2023 10:00 AM EDT Office Visit Cardiology, [facility] [address] [place] [address] Jonnathan Song PA-C 132 [facility] [place] [address] 12/08/2023 3:30 PM EDT Office Visit Dermatology [facility] [address] [place] [address] Ama Galvez MD 200 [place] [address] 02/15/2024 10:00 AM EDT Laboratory Laboratory, [facility] [address] [facility] [place] [phone] Paulette Hernandez 132 [facility] [place] [address] 02/22/2024 2:30 PM EDT Office Visit Hematology/Oncology [facility] [address] [place] [phone] Smita Miller MD 200 [facility] [place] [address] 02/24/2024 9:20 AM EDT Office Visit General Internal Medicine [facility] [address] [facility] [place] [address] Donn Clarke MD [address] [facility] [place] [address] 03/26/2024 10:30 AM EDT Nurse Only Ancillary [facility] [address] [facility] [place] [address] David, Nurse [facility] Wellness [facility] [address] [facility] [place] [address] Pending Results Name Type Priority Associated Diagnoses Date /Time TSH Lab Routine Postoperative hypothyroidism 09/15/2023 10:26 AM EST Scheduled Procedures Name Priority Associated Diagnoses Date/Ti me COLONOSCOPY FLEXIBLE PROXIMAL DIAGNOSTIC Recall History of colon polyps Health Maintenance Due Date Last Done Comments DXA Scan 01/27/2023 01/28/2020, 03/13/2008 DTaP,Tdap,and Td Vaccines (2 - Td or Tdap) 08/20/2023 08/20/2013, 10/25/2007 Depression Screening 03/23/2024 03/23/2023, 10/18/19 15 GFR 08/19/2024 08/19/2023, 08/0 02/2023, 12/02/2022, Additional history exists TSH 08/19/2024 08/19/2023, 05/19, 10/23/2021, Additional history exists Albumin/Creatinine Ratio 04/22/2025 022, [...] this encounter Medical Devices Implanted Type Area Coin Wrapping Machine Operator Device Identifier Shelf Expiration Date Model / Serial / Lot Jenna Smart .6x4.25 [id number] - [id number] Implanted:Qty : 1 on 06/26/2013 at OR [facility] [place] Left: Ear GYRUS : ENT 05/17/2022 [id number] / / [id number] Suture Steel 6 B&S19 M654g - [id number] Implanted:Qty : 4 on 07/14/2019 by Genesis Rea MD at OR [facility] N/A: Sternum JNJ : [employer] 03/17/2024 M654G / / [id number] documented as of this encounter Visit Diagnoses [...] and were consensually agreed upon. Care Teams Area Development Consultant Relationship Specialty Start Date End Date Donn Clarke MD [address] [place] [address] PCP - General Internal Medicine 12/17/15 documented as of this encounter
--- OUTSIDE RECORDS SUMMARY | 2023-11-25 09:24 | External Medical Summary ---
Author Name Unknown Address Unknown Organization K01:LABORATORY [facility] - [address] [place] [address] Laboratory Report Ordering Provider Test Date Status JOSE CONNOLLY 11/04/2023 08:38:53 Final Observation Date Value Abnormality Reference (Units ) Status TSH 11/04/2023 08:38:53 0.22 Below low normal 0.2 7-4.20 (uIU/mL) Final Performing Location LABORATORY [facility] - [address] [place] [address]
--- OUTSIDE RECORDS SUMMARY | 2023-11-25 09:25 | External Medical Summary | Summary of Care ---
Author Name Unknown Organization [facility] Address [address] [place] [address] Phone [phone] Care Team Providers Care Roving Or Yarn Color Checker Name Role Phone Donn Clarke MD Primary Care Provider + Reason for Visit * Reason Onset Date Comments Films 09/08/2023 Encounter Details Date Type Department Care Team (Late st Contact Info) Description 09/08/2023 Telephone Radiology [facility] [address] [place] [address] Macrina Bhat MD [address] [place], [place] [id number] Films Allergies Active Allergy Reactions Criticality Noted Date Comments Lorazepam Low 07/27/2019 Codeine Nausea/vomiting Low 10/31/2018 Pollen Wheezing,Cough Low 11/30/2016 documented as of this encounter (statuses as of 09/08/2023) Medications Medication Sig Dispensed Refills Start Date [...] coated 81 MG TBECIndications:Donell nary atherosclerosis of [place] coronary artery Take 2 Tabs by mouth [...] Extended Release (Isoptin SR)Indications:Coron myra atherosclerosis of [place] coronary artery,PAF (paroxysmal atrial fibrillation) (HCC),HTN, goal [...] Nasal Aerosol (Nasacort Allergy 24HR) Administer 1 Peridot into each nostril daily as needed. 0 [...] 100 Tablet 3 07/06/2023 4 Active Ipratropium [place] 0.06 % Nasal Solution (Atrovent) Administer 1 Peridot into each nostril at bedtime. 45 mL [...] as of this encounter (statuses as of 09/08/2023) Active Problems Problem Noted Date Diagnosed Date [...] single drug-eluting stent (3.0 x 15 mm [place]). 3. Successful PCI of ostial to mid [...] L upper back, R deltoid -2011 R spiritism -2012 R temporal scalp -02/2014 BCC L chest -11/2018 BCC R medrano upper HX-MALIG SKIN MELANOMA - 2005 0.56 R post. 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, Hx melanoma in 2005, 0.56 mm on the Right neck; also hx MIS right midback 02/2014; L lower eyelid MIS 02/2018 Coronary atherosclerosis of [place] coronary estella ry 05/16/2007 BPH without obstruction/lower urinary tract symp toms 08/03/2002 Chronic rhinitis 08/03/2002 documented as of this encounter (statuses as of 09/08/2023) Resolved Problems Problem Noted Date Diagnosed Date [...] recommend f/u 3 years [employer] Other*[id number] 06/05/2007 08/24/2016 Overview: Study Title: Genomic Markers for Patients with Cardiovascular Disease Project # [id number] Meat Products Demonstrator: Aretha Rodríguez MD [phone] Coronary atherosclerosis of [place] coronary artery 05/16/2007 07/27/2019 ADVANCE DIRECTIVE INFORMATION [...] as of this encounter (statuses as of 09/08/2023) Immunizations Name Administration Dates Next Due COVID-19 mRNA, LNP-s, No Pre serve, 2-Dose Series (PodPoster) 10/21/2021,04/20/2021,09/23/2020,08/25 COVID-19, LNP-s, No Preserve , Justyn-sucrose, Ages 12+ (Pfizer) 10/21/2021 COVID-19, MRNA-LNP, 23-24, P F, 30 MCG/0.3 mL, 12 YRS AND ABOVE, IM (Sverve-Comirnaty) 04/12/2023 Covid-19, Mrna, Lnp-s, Pf, B ivalent, [...] Exposure: Never Smokeless Tobacco: Former Quit: 1971 Alcohol Use Standard Drinks/Week Comments Yes 5 [...] encounter Miscellaneous Notes * Telephone Encounter - Ade Pena OSA - 09/08/2023 1:40 PM EST Received fax request from the Hospital at the [facility]. Requesting 08/22/23 CT, 05/05/23 CT, 11/08/22 CT & 07/21/22 CT images be shared with PACS. [place] Authorization on file to release. Images sent by Ext to [facility]. documented in this encounter Plan of Treatment Upcoming Encounters Date Type Department Care Team (Late st Contact Info) Description 11/25/2023 10:00 AM EDT Office Visit Cardiology, [facility] [address] [place] [address] Jonnathan Song PA-C [address] [place] [address] 12/08/2023 3:30 PM EDT Office Visit Dermatology [facility] [address] [place] [address] Ama Galvez MD [address] [place] [place] [address] 12/09/2023 11:30 AM EDT Office Visit Otolaryngology/Head & Neck/Facial Plastic Surgery [address] [place] [facility] [place] [address] Francois Mae MD [address] [place] [address] 02/15/2024 10:00 AM EDT Laboratory Laboratory, [facility] [address] [place] [phone] Paulette Hernandez [facility] [place] [address] 02/22/2024 2:30 PM EDT Office Visit Hematology/Oncology [facility] [address] [place] [phone] Smita Miller MD [address] [place] [address] 02/24/2024 9:20 AM EDT Office Visit General Internal Medicine [place] [address] [facility] [place] [address] Donn Clarke MD [address] [facility] [place] [address] 03/26/2024 10:30 AM EDT Nurse Only Ancillary [facility] [address] [place] [address] [facility], Nurse Annual Wellness [facility] [address] [place] [address] Scheduled Procedures Name Priority Associated Diagnoses Date/Ti me COLONOSCOPY FLEXIBLE PROXIMAL DIAGNOSTIC Recall History of colon polyps Health Maintenance Due Date Last Done Comments DXA Scan 01/27/2023 01/28/2020, 03/13/2008 DTaP,Tdap,and Td Vaccines (2 - Td or Tdap) 08/20/2023 08/20/2013, 10/25/2007 Depression Screening 03/23/2024 03/23/2023, 10/18/19 15 GFR 08/19/2024 08/19/2023, 0802/2023, 12/02/2022, Additional history exists TSH 08/19/2024 08/19/2023, [...] this encounter Medical Devices Implanted Type Area Manager Materials Management Device Identifier Shelf Expiration Date Model / Serial / Lot Jenna Smart .6x4.25 [id number] - [id number] Implanted:Qty : 1 on 06/26/2013 at [facility] Left: Ear GYRUS : ENT 05/17/2022 [id number] / / [id number] Suture Steel 6 B&S19 M654g - [id number] Implanted:Qty : 4 on 07/14/2019 by Genesis Rea [place] [facility]/A: Sternum JNJ : [employer] 03/17/2024 M654G / / [id number] documented as of this encounter Advance Directives [...] and were consensually agreed upon. Care Teams Roving Or Yarn Color Checker Relationship Specialty Start Date End Date Donn Clarke MD 200 [facility] [place] [address] PCP - General Internal Medicine 12/17/15 documented as of this encounter
--- OUTSIDE RECORDS SUMMARY | 2023-11-25 09:25 | External Medical Summary | Summary of Care ---
Author Name Unknown Organization [facility] Address [address] [place] [address] Phone [phone] Care Team Providers Care Barber Shop Manager Name Role Phone Donn Clarke MD Primary Care Provider + Encounter Details Date Type Department Care Team (Late st Contact Info) Description 09/14/2023 Telephone Pulmonary Medicine, [place] [address] [place] [address] Macrina Bhat MD [address] [place] [address] Allergies Active Allergy Reactions Criticality Noted Date Comments Lorazepam Low 07/27/2019 Codeine Nausea/vomiting Low 10/31/2018 Pollen Wheezing,Cough Low 11/30/2016 documented as of this encounter (statuses as of 09/14/2023) Medications Medication Sig Dispensed Refills Start Date [...] coated 81 MG TBECIndications:Donell nary atherosclerosis of [place] coronary artery Take 2 Tabs by mouth [...] Extended Release (Isoptin SR)Indications:Coron myra atherosclerosis of [place] coronary artery,PAF (paroxysmal atrial fibrillation) (HCC),HTN, goal [...] Nasal Aerosol (Nasacort Allergy 24HR) Administer 1 Calvin into each nostril daily as needed. 0 [...] 100 Tablet 3 07/06/2023 4 Active Ipratropium [place] 0.06 % Nasal Solution (Atrovent) Administer 1 Calvin into each nostril at bedtime. 45 mL [...] as of this encounter (statuses as of 09/14/2023) Active Problems Problem Noted Date Diagnosed Date [...] L upper back, R deltoid -2011 R bahai -2012 R temporal scalp -02/2014 BCC L chest -11/2018 BCC R medrano upper HX-MALIG SKIN MELANOMA - 2005 0.56 R post. 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, Hx melanoma in 2005, 0.56 mm on the Right neck; also hx MIS right midback 02/2014; L lower eyelid MIS 02/2018 Coronary atherosclerosis of [place] coronary estella ry 05/16/2007 BPH without obstruction/lower urinary tract symp toms 08/03/2002 Chronic rhinitis 08/03/2002 documented as of this encounter (statuses as of 09/14/2023) Resolved Problems Problem Noted Date Diagnosed Date [...] recommend f/u 3 years [employer] Other*[id number] 06/05/2007 08/24/2016 Overview: Study Title: Genomic Markers for Patients with Cardiovascular Disease Project # [id number] Mission Planner: Aretha Rodríguez MD [phone] Coronary atherosclerosis of [place] coronary artery 05/16/2007 07/27/2019 ADVANCE DIRECTIVE INFORMATION [...] as of this encounter (statuses as of 09/14/2023) Immunizations Name Administration Dates Next Due COVID-19 mRNA, LNP-s, No Pre serve, 2-Dose Series (Armor5) 10/21/2021,04/20/2021,09/23/2020,08/25 COVID-19, LNP-s, No Preserve , Justyn-sucrose, [...] encounter Miscellaneous Notes * Telephone Encounter - Macrina Bhat MD - 09/14/2023 3:30 PM EST Called and spoke with patient. Feeling improved with antibiotics provided by Dr. Harding. Discussed bronchoscopy results. Encouraged patient to reach out to PCP and cardiac exercise specialist if dyspnea on exertionpersists despite appropriate antibiotics and ACT. Will discuss utility of CPET. documented in this encounter Plan of Treatment Upcoming Encounters Date Type Department Care Team (Late st Contact Info) Description 11/25/2023 10:00 AM EDT Office Visit Cardiology, [facility] [address] [place] [address] Jonnathan Song PA-Mary [address] [facility] [place] [address] 12/08/2023 3:30 PM EDT Office Visit Dermatology [facility] [address] [place] [address] Ama Galvez MD 200 [facility] [place] [address] 02/15/2024 10:00 AM EDT Laboratory Laboratory, [facility] 132 [facility] [place] [phone] Paulette Hernandez [facility] 132 [place] [address] 02/22/2024 2:30 PM EDT Office Visit Hematology/Oncology [facility] [address] [place] [address] [phone] Smita Miller MD 200 [facility] [place] [address] 02/24/2024 9:20 AM EDT Office Visit General Internal Medicine [facility] [address] [place] [address] Donn Clarke MD 200 [facility] [place] [address] 03/26/2024 10:30 AM EDT Nurse Only Ancillary [facility] [address] [place] [address] [facility], Nurse Annual Wellness [place] [address] [place] [address] Scheduled Procedures Name Priority Associated Diagnoses Date/Ti [...] this encounter Medical Devices Implanted Type Area University Lecturer Device Identifier Shelf Expiration Date Model / Serial / Lot Jenna Morgan .6x4.25 [id number] - [id number] Implanted:Qty : 1 on 06/26/2013 at [facility] Left: Ear GYRUS : ENT 05/17/2022 [id number] / / [id number] Suture Steel 6 B&S19 M654g - [id number] Implanted:Qty : 4 on 07/14/2019 [place] Re[place] [facility] N/A: Sternum JNJ : [employer] 03/17/2024 M654G / / [id number] documented as of this encounter Advance Directives [...] and were consensually agreed upon. Care Teams Barber Shop Manager Relationship Specialty Start Date End Date Donn Clarke MD [address] [place] [address] PCP - General Internal Medicine 12/17/15 documented as of this encounter
--- OUTSIDE RECORDS SUMMARY | 2023-11-25 09:25 | External Medical Summary ---
Author Name Unknown Address Unknown Organization K01:LABORATORY [facility] - [address] [place] [address] Laboratory Report Ordering Provider Test Date Status JOSE CONNOLLY 09/15/2023 10:26:46 Final Observation Date Value Abnormality Reference (Units ) Status TSH 09/15/2023 10:26:46 0.06 Below low normal 0.2 7-4.20 (uIU/mL) Final Performing Location LABORATORY [facility] - [address] [place] [address]
--- OUTSIDE RECORDS SUMMARY | 2023-11-25 09:25 | External Medical Summary | Summary of Care ---
Author Name Unknown Organization [facility] Address [address] [place] [address] Phone [phone] Care Team Providers Care Councilperson Name Role Phone Donn Clarke MD Primary Care Provider + Reason for Referral * Precert (Within 10 days (routine)) - Pending Review Specialty Diagnoses / Procedures Referred By Contac t Referred To Contact Radiology Diagnoses Bronchiectasis without complication (HCC) Procedures CT CHEST WO CONTRAST Macrina Bhat MD [address] [place] [address] Referral ID Status Reason Start Date Expiration Date V isits Requested Visits Authorized [id number] Pending Review 08/17/2023 999 999 Reason for Visit * Reason Comments Follow Up Encounter Details Date Type Department Care Team (Latest Contact Info) Description 08/17/2023 2:00 PM EST Office Visit Pulmonary Medicine, [place] [address] [place] [address] Macrina Bhat MD [address] [place] [address] Bronchiectasis without complication (HCC)* Allergies Active Allergy Reactions Criticality Noted Date Comments Lorazepam Low 07/27/2019 Codeine Nausea/vomiting Low 10/31/2018 Pollen Wheezing,Cough Low 11/30/2016 documented as of this encounter (statuses as of 09/13/2023) Medications Medication Sig Dispensed Refills Start Date [...] coated 81 MG TBECIndications:Donell nary atherosclerosis of ute coronary artery Take 2 Tabs by mouth [...] Extended Release (Isoptin SR)Indications:Coron myra atherosclerosis of ute coronary artery,PAF (paroxysmal atrial fibrillation) (HCC),HTN, goal [...] Nasal Aerosol (Nasacort Allergy 24HR) Administer 1 Sheldon into each nostril daily as needed. 0 [...] Tablet 3 07/06/2023 07/05/20 24 Active Ipratropium Erick 0.06 % Nasal Solution (Atrovent) Administer 1 Sheldon into each nostril at bedtime. 45 mL 3 08/17/2023 Active Losartan Potassium 100 MG Oral Tablet (Cozaar)Indications: HTN, goal below 140/90 Take 1 Tablet by mouth in the morning. 100 Tablet 3 04/28/2022 08/17/19 24 Discontinu ed(Medicat ion List Clean Up) Ipratropium Erick 0.06 % Nasal Solution (Atrovent) PLEASE SEE ATTACHED FOR DETAILED DIRECTIONS 0 12/17/2022 08/17/19 24 Discontinu ed(Refill) Tamsulosin HCl 0.4 MG Oral Capsule (Flomax)Indications: [...] as of this encounter (statuses as of 09/13/2023) Active Problems Problem Noted Date Diagnosed Date [...] (3.0 x 34, 2.5 x 12 mm [place]). History of prostate cancer 12/01/2017 History of pulmonary embolism 06/02/2017 Hx of actinic keratosis 09/03/2016 Beta-blockers contraindicated 10/17/2014 Overview: HR controlled Asthma, moderate persistent 02/10/2011 HTN, goal below 140/90 01/21/2010 HX-SKIN MALIGNANCY NEC - multiple BCC 09/29/2009 Overview: BCCs: -2005 L neck -2006 L ala, R flank, L cheek, midback -2007 L upper back, R deltoid -2011 R sabianist -2012 R temporal scalp -02/2014 BCC L chest -11/2018 BCC R medrano upper HX-MALIG SKIN MELANOMA - 2005 0.56 R post. 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, Hx melanoma in 2005, 0.56 mm on the Right neck; also hx MIS right midback 02/2014; L lower eyelid MIS 02/2018 Coronary atherosclerosis of ute coronary estella ry 05/16/2007 BPH without obstruction/lower urinary tract symp toms 08/03/2002 Chronic rhinitis 08/03/2002 documented as of this encounter (statuses as of 09/13/2023) Resolved Problems Problem Noted Date Diagnosed Date [...] recommend f/u 3 years [employer] Other*[id number] 06/05/2007 08/24/2016 Overview: Study Title: Genomic Markers for Patients with Cardiovascular Disease Project # [id number] Conference Center Coordinator: Aretha Rodríguez MD [phone] Coronary atherosclerosis of ute coronary artery 05/16/2007 07/27/2019 ADVANCE DIRECTIVE INFORMATION [...] as of this encounter (statuses as of 09/13/2023) Immunizations Name Administration Dates Next Due COVID-19 mRNA, LNP-s, No Pre serve, 2-Dose Series ([employer]) 10/21/2021,04/20/2021,09/23/2020,08/25 COVID-19, LNP-s, No Preserve , Justyn-sucrose, Ages 12+ (Pfizer) 10/21/2021 COVID-19, MRNA-LNP, 23-24, P F, 30 MCG/0.3 mL, 12 YRS AND ABOVE, IM ([employer]-Comirnaty) 04/12/2023 Covid-19, Mrna, Lnp-s, Pf, B ivalent, [...] Sign Reading Time Taken Comments Blood Pressure 122/57 08/17/2023 1:56 PM EST Pulse 67 08/17/2023 1:56 PM EST Temperature 36.9 C (98.4 F) 08/17/2023 1:56 PM ES T Respiratory Rate - - Oxygen Saturation 94% 08/17/2023 1:56 PM EST Inhaled Oxygen Concentration - - Weight 85.7 kg (189 lb) 08/17/2023 1:56 PM EST Height - - Body Mass Index 27.91 03/23/2023 10:01 AM EDT documented in this encounter Functional Status Functional [...] as of this encounter Progress Notes * Brian Castillo MD - 08/17/2023 2:35 PM EST I saw and evaluated the patient today. I have reviewed the trainee note and agree. Bronchiectasis, non CF. H/o smoking Poor phlegm, good cough. Bds, dindt tolerate HTS in the past. C/w vest Repeat CT chest and Bronch- send for Bacterial and AFB. AEC/IgE- not s/o ABPA. RSV vaccine D/w pt and his family in detail. Reviewed CT image personally from 05/15 with Bronchiectasis, LLL worse with some tree in bud. H/o recurrent H.influenzae. Total time- 32 min documented in this encounter Nursing Notes * Jesenia Olmedo CCMA - 08/17/2023 1:51 PM EST Return Pulmonary Visit Refill of Atrovent nasal spray requested Using the DuoNeb with vest multiple times a day. Spoke to Ganji yesterday about increasing vest setting. documented in this encounter Plan of Treatment Upcoming Encounters Date Type Department Care Team (Late st Contact Info) Description 11/25/2023 10:00 AM EDT Office Visit [facility], [facility] [address] [facility] [address] Jonnathan Song PA-C [address] [facility] [place] [address] 12/08/2023 3:30 PM EDT Office Visit Dermatology [facility] [address] [place] [address] [address] Ama Galvez MD [address] [place] [address] [address] 02/15/2024 10:00 AM EDT Laboratory Laboratory, [facility] [address] [facility] [id number] Paulette Hernandez [facility] [address] [address] 02/22/2024 2:30 PM EDT Office Visit Hematology/Oncology [facility] [address] [id number] Smita Miller MD [address] [place] [place] [address] 02/24/2024 9:20 AM EDT Office Visit General Internal Medicine [facility] [address] [place] [address] [address] Donn Clarke MD [address] [place] [address] 03/26/2024 10:30 AM EDT Nurse Only Ancillary Srinath Hernandez [place] [address] [facility] [place] [address] David Nurse Annual Wellness [facility] [place] [address] Scheduled Procedures Name Priority Associated Diagnoses Date/Ti [...] this encounter Medical Devices Implanted Type [facility] Educator Device Identifier Shelf Expiration Date Model / Serial / Lot Jenna Morgan .6x4.25 [id number] - [id number] Implanted:Qty : 1 on 06/26/2013 at [place] [facility] [place] Left: Ear GYRUS : ENT 05/17/2022 [id number] / / [id number] Suture Steel 6 B&S19 [id number] - [id number] Implanted:Qty : 4 on 07/14/2019 by Genesis Rea MD at [place] [facility] [place] N/A: Sternum JNJ : [employer] 03/17/2024 [id number] / / [id number] documented as of this encounter Results * CT CHEST WO CONTRAST (08/22/2023 12:40 PM EST) Anatomical Region Laterality Modality Chest, Body, Cardio Computed Bobo ography 08/22/2023 12:3 3 PM EST Impressions 08/24/2023 12:41 AM EST IMPRESSION: Scattered areas of parenchymal nodularity are again noted. These again appear waxing and waning and are most likely inflammatory but appear slightly more coalescent in the left lower lobe on today's exam. Further follow-up should be based on patient's underlying risk factors. COMMENTS: Consistent with the [employer]'s Incidental Findings Committee white paper (J Am Zafar Radiol 2018): Any incidental renal lesion less than 1 cm or classified as too small to characterize, or any incidental cystic renal lesion characterized as simple-appearing, is likely benign. No follow-up imaging is recommended for these lesions per consensus recommendations based on imaging criteria. REFERENCES: Suzanna H, et al. Guidelines for Management of Incidental Pulmonary Nodules Detected on CT Images: From the Fleischner Society 2017. Radiology. 2017;284(1):228-243. THIS DOCUMENT HAS BEEN ELECTRONICALLY SIGNED BY JIGNESH LLOYD MD Narrative 08/24/2023 12:41 AM EST PROCEDURE INFORMATION: Exam: CT Chest Without Contrast; Diagnostic Exam date and time: 08/22/2023 12:33 PM Age: 82 years old Clinical indication: Bronchiectasis, uncomplicated; Additional info: Re-assess bronchiectasis, tree in bud opacities TECHNIQUE: Imaging protocol: Diagnostic computed tomography of the chest without contrast. Radiation optimization: All CT scans at this facility use at least one of these dose optimization techniques: automated exposure control; mA and/or kV adjustment per patient size (includes targeted exams where dose is matched to clinical indication); or iterative reconstruction. COMPARISON: 1. CT CHEST WO(Adult) 05/05/2023 10:[address] Thorax^ROUTINE CHEST WO (Adult) 07/21/2022 5:[address] PET^[facility] Skull MidThigh (Adult) 07/15/2021 9:59 AM FINDINGS: Lungs: Scattered areas of bronchial wall thickening which are likely chronic inflammatory. A few areas of subpleural reticulation are noted, nonspecific. There are scattered areas of emphysema throughout the lungs. Scattered areas of parenchymal nodularity are again noted. These again appear waxing and waning and are most likely inflammatory but appear slightly more coalescent in the left lower lobe on today's exam. Further follow-up should be based on patient's underlying risk factors. Pleural spaces: Pleural surfaces are smooth, and there are no pleural effusions, pneumothoraces, or pleural plaques noted. Heart: The heart size is within normal limits, and the pericardium appears clear with no signs of pericardial effusion or thickening. Coronary arteries: There is moderate coronary atherosclerotic disease/calcification although evaluation is limited secondary to the non gated nature of the study. Mediastinal space: The mediastinum appears unremarkable with no evidence of masses, lymphadenopathy, or mediastinal widening. Hilar structures including the major bronchi and vessels appear intact. Lymph nodes: Unremarkable. No enlarged lymph nodes. Vasculature: There is atherosclerotic disease of the visualized aorta and its major branch vessels. Gallbladder and bile ducts: The patient is status post cholecystectomy. Pancreas: There is fatty replacement of the pancreas. Kidneys and ureters: Partially visualized simple appearing right renal cyst. Bones/joints: There is diffuse degenerative disease of the visualized osseous structures. Soft tissues: There is bilateral gynecomastia. Procedure Note Jignesh Lloyd MD - 08/24/2023 PROCEDURE INFORMATION: Exam: CT Chest Without Contrast; Diagnostic Exam date and time: 08/22/2023 12:33 PM Age: 82 years old Clinical indication: Bronchiectasis, uncomplicated; Additional info:Re-assess bronchiectasis, tree in bud opacities TECHNIQUE: Imaging protocol: Diagnostic computed tomography of the chest withoutcontrast. Radiation optimization: All CT scans at this facility use at least one ofthese dose optimization techniques: automated exposure control; mA and/or kV adjustment per patient size (includes targeted exams where dose is matchedto clinical indication); or iterative reconstruction. COMPARISON: 1. CT CHEST WO(Adult) 05/05/2023 10:[address] Thorax^ROUTINE CHEST WO (Adult) 07/21/2022 5:[address] PET^[facility] (Adult) 07/15/2021 9:59 AM FINDINGS: Lungs: Scattered areas of bronchial wall thickening which are likelychronic inflammatory. A few areas of subpleural reticulation are noted,nonspecific. There are scattered areas of emphysema throughout the lungs. Scatteredareas of parenchymal nodularity are again noted. These again appear waxing andwaning and are most likely inflammatory but appear slightly more coalescent inthe left lower lobe on today's exam. Further follow-up should be based onpatient's underlying risk factors. Pleural spaces: Pleural surfaces are smooth, and there are no pleural effusions, pneumothoraces, or pleural plaques noted. Heart: The heart size is within normal limits, and the pericardium appears clear with no signs of pericardial effusion or thickening. Coronary arteries: There is moderate coronary atherosclerotic disease/calcification although evaluation is limited secondary to the nongated nature of the study. Mediastinal space: The mediastinum appears unremarkable with no evidenceof masses, lymphadenopathy, or mediastinal widening. Hilar structuresincluding the major bronchi and vessels appear intact. Lymph nodes: Unremarkable. No enlarged lymph nodes. Vasculature: There is atherosclerotic disease of the visualized aorta andits major branch vessels. Gallbladder and bile ducts: The patient is status post cholecystectomy. Pancreas: There is fatty replacement of the pancreas. Kidneys and ureters: Partially visualized simple appearing right renalcyst. Bones/joints: There is diffuse degenerative disease of the visualizedosseous structures. Soft tissues: There is bilateral gynecomastia. IMPRESSION IMPRESSION: Scattered areas of parenchymal nodularity are again noted. These againappear waxing and waning and are most likely inflammatory but appear slightlymore coalescent in the left lower lobe on today's exam. Further follow-upshould be based on patient's underlying risk factors. COMMENTS: Consistent with the [employer]'s Incidental Findings Committee white paper (J Am Zafar Radiol 2018): Any incidental renal lesionless than 1 cm or classified as too small to characterize, or any incidentalcystic renal lesion characterized as simple-appearing, is likely benign. Nofollow-up imaging is recommended for these lesions per consensus recommendationsbased on imaging criteria. REFERENCES: Suzanna Moon, et al. Guidelines for Management of Incidental PulmonaryNodules Detected on CT Images: From the Fleischner Society 2017. Radiology. 2017;284(1):228-243. THIS DOCUMENT HAS BEEN ELECTRONICALLY SIGNED BY JIGNESH LLOYD MD Macrina Bhat MD RAD CT documented in this encounter Visit Diagnoses Diagnosis Bronchiectasis without complication (HCC)- Primary Bronchiectasis without acute exacerbation Bronchiectasis without complication (HCC) Bronchiectasis without acute exacerbation documented in [...] and were consensually agreed upon. Care Teams Councilperson Relationship Specialty Start Date End Date Donn Clarke MD [address] [place] [address] PCP - General Internal Medicine 12/17/15 documented as of this encounter
--- OUTSIDE RECORDS SUMMARY | 2023-11-25 09:26 | External Medical Summary ---
Author Name Unknown Address Unknown Organization [id number]:[facility] [place] [place] - [address] [place] [address] Laboratory Report Ordering Provider Test Date Status BRYANNA WONG 08/26/2023 15:33:34 Final Observation Date Value Abnormality Reference (Units ) Status Bacteria identified in Specimen by Culture 08/26/2023 15:33:34 No Legionella species isolated Final Test: Culture, Legionella<b r/>Specimen Source: Lung, Left lower lobe
Specimen Type: Bronchoalveolar Lavage (BAL)
Specimen Date: 08/26/2023 3:33 PM
Result Date: 09/05/2023 8:42 AM
Result Status: Final result
Resulting Lab: [facility] [place] [place]
[address]
[place] [id number]

CULTURE

No Legionella species isolated

null Performing Location [facility] [place] [place] - [address] [place] [id number]
--- OUTSIDE RECORDS SUMMARY | 2023-11-25 09:26 | External Medical Summary ---
Author Name Unknown Address Unknown Organization : Laboratory Report Ordering Provider Test Date Status BRYANNA WONG 08/26/2023 15:33:34 Final Observation Date Value Abnormality Reference (Units ) Status CYTOMEGALOVIRUS (CMV) RAPID CULTURE 08/26/2023 15:33:34 SEE BELOW Final CMV Rapid Culture
SOURCE : LOWER LOBE OF LE
RESULT Not Isolated
Reference Range: Not Isolated

Test Performed at:
[facility]
[address] [facility]
[place] [address]
Jerry Silva M.D., Ph.D.,Director of Laboratories Performing Location
--- OUTSIDE RECORDS SUMMARY | 2023-11-25 09:26 | External Medical Summary | Summary of Care ---
Author Name Unknown Organization [facility] Address [address] [place] [address] Phone [phone] Care Team Providers Care Burr Bench Hand Name Role Phone Donn Garcia MD Primary Care Provider + Reason for Visit * Reason Comments Medication Refill Encounter Details Date Type Department Care Team (Late st Contact Info) Description 09/01/2023 Refill General Internal Medicine [facility] [address] [place] [address] Donn Garcia MD 200 [place] [address] HYPERTROP PROSTATE W/O URIN OB Allergies Active Allergy Reactions Criticality Noted Date Comments Lorazepam Low 07/27/2019 Codeine Nausea/vomiting Low 10/31/2018 Pollen Wheezing,Cough Low 11/30/2016 documented as of this encounter (statuses as of 09/01/2023) Medications Medication Sig Dispensed Refills Start Date End Date Status ACETAMINOPHEN 500 MG PO TABS Take 1 Tablet by mouth every 4 hours as needed for Pain. Do not take more then 3000 mg in a 24 hr period. 0 Active Dextran 70-Hypromellose 0.1-0.3 % Ophthalmic Solution Instill into eye as needed. 0 Active Probiotic Capsule Take 1 Cap by mouth daily. 0 9 Active aspirin enteric coated 81 MG TBECIndications:Donell nary atherosclerosis of [place] coronary artery Take 2 Tabs by mouth daily. 100 Tab 3 0 Active Additional Information Patient taking differently: 81 mgOralDAILY(1900), Reported on 11/10/2022 Vitamin D 25 MCG (1000 UT) Oral Tablet Take 1 Tablet by mouth once a day on Tuesday, Tuesday, and Tuesday only. 0 1 Active Metamucil 28.3 % Oral Powder (Psyllium) Take by mouth daily. 0 Active Albuterol Sulfate HFA 108 (90 Base) MCG/ACT Inhalation Aerosol SolutionIndications: Moderate persistent asthma without complication Inhale by mouth 2 Puffs every 6 hours as needed for Shortness of Breath. 18 g 5 2 Active Additional Information Patient taking differently:2 Puff Inhalation Q6H PRN, Shortness of Breath,Indications: COPD/breathing, Reported on 09/03/2022 Fluorouracil 5 % External Cream (Efudex)Indications: Actinic keratosis apply to affected areas of face/scalp nightly for 2-3 weeks 40 g 1 3 Active Spironolactone 25 MG Oral Tablet (Aldactone) Take one-half Tablet by mouth in the morning. 50 Tablet 3 3 Active prednisoLONE Acetate 1 % Ophthalmic Suspension (Pred Forte) PLACE 5 DROPS IN 8 OZ OF SALINE NASAL SOLUTION (DISTILLED WATER AND SALT) USE STERIOD/SALT/WATE R IRRIGATIONS TWICE PER DAY TO FLUSH NASAL/SINUS CAVITY NOT FOR USE IN EYES 45 mL 3 3 01/14/20 24 Active Additional Information Patient not taking.Reported on 08/26/2023 Verapamil HCl ER 120 MG Oral Tablet Extended Release (Isoptin SR)Indications:Coron myra atherosclerosis of [place] coronary artery,PAF (paroxysmal atrial fibrillation) (HCC),HTN, goal below 140/90 TAKE ONE TABLET BY MOUTH EVERY MORNING 90 Tablet 4 3 12/02/19 24 Active Fluticasone-Salmeter ol 500-50 MCG/ACT Inhalation Aerosol Powder Breath Activated (Advair Diskus) INHALE ONE PUFF BY MOUTH EVERY MORNING AND ONE PUFF BEFORE BEDTIME 60 Each 12 3 09/15/19 24 Active Additional Information Patient taking differently:1 Puff Inhalation BID (.AM/PM),Indications: COPD, Reported on 09/03/2022 Levothyroxine Sodium 137 MCG Oral TabletIndications:Po stoperative hypothyroidism TAKE ONE TABLET BY MOUTH EVERY DAY ON TUESDAY, TUESDAY, TUESDAY AND TUESDAY (AT LEAST THIRTY MINUTES PRIOR TO BREAKFAST OR OTHER MEDS) 60 Tablet 1 3 02/18/20 24 Active Sertraline HCl 50 MG Oral Tablet (Zoloft)Indications: Moderate major depression (HCC) TAKE ONE TABLET BY MOUTH EVERY DAY 100 Tablet 3 3 03/23/20 24 Active Ezetimibe 10 MG Oral Tablet (Zetia)Indications:D yslipidemia, goal LDL below 70 TAKE ONE TABLET BY MOUTH EVERY MORNING 90 Tablet 3 3 03/23/20 24 Active Montelukast Sodium 10 MG Oral Tablet (Singulair)Indicatio ns:Moderate persistent asthma without complication TAKE 1 TABLET BY MOUTH EVERYDAY AT BEDTIME 90 Tablet 1 3 Active Atorvastatin Calcium 80 MG Oral Tablet (Lipitor)Indications :Dyslipidemia, goal LDL below 70 TAKE ONE TABLET BY MOUTH EVERY DAY 90 Tablet 3 3 05/23/20 24 Active Triamcinolone Acetonide 55 MCG/ACT Nasal Aerosol (Nasacort Allergy 24HR) Administer 1 [place]amy into each nostril daily as needed. 0 Active Ipratropium-Albutero l 0.5-2.5 (3) MG/3ML Inhalation Solution (Duoneb)Indications: ALEXANDER (dyspnea on exertion),Acute cough INHALE THE CONTENTS OF ONE VIAL VIA NEBULIZER EVERY 4 HOURS NEEDED FOR SHORTNESS OF BREATH AND OR WHEEZING 1620 mL 0 3 06/13/20 24 Active Famotidine 20 MG Oral Tablet (Pepcid)Indications: Gastroesophageal reflux disease TAKE ONE TABLET BY MOUTH TWICE A DAY 180 Tablet 3 3 06/20/20 24 Active Losartan Potassium 100 MG Oral Tablet (Cozaar)Indications: HTN, goal below 140/90 TAKE ONE TABLET BY MOUTH EVERY DAY 100 Tablet 3 3 07/05/20 24 Active Ipratropium [place] 0.06 % Nasal Solution (Atrovent) Administer 1 [place]amy into each nostril at bedtime. 45 mL 3 4 Active Levothyroxine Sodium 150 MCG Oral Tablet (Levoxyl)Indications :Congenital hypothyroidism without goiter TAKE ONE TABLET BY MOUTH ON TUESDAY AND TUESDAY ONLY, Levothyroxine 137mcg all other days. 24 Tablet 0 4 Active Tamsulosin HCl 0.4 MG Oral Capsule (Flomax)Indications: BPH without obstruction/lower urinary tract symptoms TAKE ONE CAPSULE BY MOUTH AT BEDTIME 90 Capsule 2 4 Active Tamsulosin HCl 0.4 MG Oral Capsule (Flomax)Indications: BPH without obstruction/lower urinary tract symptoms TAKE ONE CAPSULE BY MOUTH AT BEDTIME 90 Capsule 2 3 09/01/19 24 Discontinu ed(Refill) Hospital, Clinic, or Other Facility Administered Medication Ordered Dose Route Frequency Start Date End Date Status methacholine (0 mg/mL) PLACEBO (Provocholine) inhalation solution 3 mLIndications:Shortness of breath 3 mL IN ONCE PRN 07/14/2022 Active documented as of this encounter (statuses as of 09/01/2023) Active Problems Problem Noted Date Diagnosed Date [...] single drug-eluting stent (3.0 x 15 mm Gordon). 3. Successful PCI of ostial to mid LAD with 2 overlapping drug-eluting stents (3.0 x 34, 2.5 x 12 mm Gordon). History of prostate cancer 12/01/2017 History of pulmonary embolism 06/02/2017 Hx of actinic keratosis 09/03/2016 Beta-blockers contraindicated 10/17/2014 Overview: HR controlled Asthma, moderate persistent 02/10/2011 HTN, goal below 140/90 01/21/2010 HX-SKIN MALIGNANCY NEC - multiple BCC 09/29/2009 Overview: BCCs: -2005 L neck -2006 L ala, R flank, L cheek, midback -2007 L upper back, R deltoid -2011 R muslim -2012 R temporal scalp -02/2014 BCC L chest -11/2018 BCC R medrano upper HX-MALIG SKIN MELANOMA - 2005 0.56 R post. 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, Hx melanoma in 2005, 0.56 mm on the Right neck; also hx MIS right midback 02/2014; L lower eyelid MIS 02/2018 Coronary atherosclerosis of [place] coronary estella ry 05/16/2007 BPH without obstruction/lower urinary tract symp toms 08/03/2002 Chronic rhinitis 08/03/2002 documented as of this encounter (statuses as of 09/01/2023) Resolved Problems Problem Noted Date Diagnosed Date [...] recommend f/u 3 years [employer] Other*[id number] 06/05/2007 08/24/2016 Overview: Study Title: Genomic Markers for Patients with Cardiovascular Disease Project # [id number] [place] Worker: Aretha Rodríguez MD [phone] Coronary atherosclerosis of [place] coronary artery 05/16/2007 07/27/2019 ADVANCE DIRECTIVE INFORMATION [...] as of this encounter (statuses as of 09/01/2023) Immunizations Name Administration Dates Next Due COVID-19 mRNA, LNP-s, No Pre serve, 2-Dose Series (f4samurai) 10/21/2021,04/20/2021,09/23/2020,08/25 COVID-19, LNP-s, No Preserve , Justyn-sucrose, Ages 12+ (f4samurai) 10/21/2021 COVID-19, MRNA-LNP, 23-24, P F, 30 MCG/0.3 mL, 12 YRS AND ABOVE, IM ([facility]) 04/12/2023 Covid-19, Mrna, Lnp-s, Pf, B ivalent, 30 Mcg, IM, 12 yrs and above (f4samurai) 04/07/2022 Pneumococcal Conjugate Vacc, 13 Valent (Prevnar) [...] encounter Miscellaneous Notes * Telephone Encounter - aTsia Gonzalez RPh - 09/01/2023 8:13 PM ESTSigned Prescriptions: Disp Refills Tamsulosin HCl 0.4 MG Oral Capsule (Flomax)90 Cap*2 Sig: TAKE ONE CAPSULE BY MOUTH AT BEDTIMEAuthorizing Provider: DONN GARCIA User: TASIA GONZALEZ C documented in this encounter Plan of Treatment Upcoming Encounters Date Type Department Care Team (Late st Contact Info) Description 11/25/2023 10:00 AM EDT Office Visit Cardiology, [facility] [address] [place] [address] Jonnathan Song PA-C [address] [place] [address] 12/08/2023 3:30 PM EDT Office Visit Dermatology [facility] [address] [place] [address] Ama Galvez MD 200 [facility] [place] [address] 12/09/2023 11:30 AM EDT Office Visit Otolaryngology/Head & Neck/Facial Plastic [facility] [address] [place] [facility] [place] [address] Francois Mae MD [address] [place] [facility] [place] [address] 02/15/2024 10:00 AM EDT Laboratory Laboratory, [facility] [address] [place] [phone] Paulette Hernandez [facility] [address] [place] [address] 02/22/2024 2:30 PM EDT Office Visit Hematology/Oncology [facility] [address] [place] [address] Smita Miller MD [address] [facility] [place] [address] 02/24/2024 9:20 AM EDT Office Visit General Internal Medicine [facility] [address] [facility] [place] [address] Donn Garcia MD 200 [facility] [place] [address] 03/26/2024 10:30 AM EDT Nurse Only Ancillary [facility] [address] [place] [address] [facility], Nurse Annual Wellness [facility] [address] [place] [address] Scheduled Procedures Name Priority Associated Diagnoses Date/Ti [...] this encounter Medical Devices Implanted Type Area Lathe Winder Device Identifier Shelf Expiration Date Model / Serial / Lot Piston Smart .6x4.25 [id number] - [id number] Implanted:Qty : 1 on 06/26/2013 at [place] [facility] [place] Left: Ear GYRUS : ENT 05/17/2022 [id number] / / [id number] Suture Steel 6 B&S19 M654g - [id number] Implanted:Qty : 4 on 07/14/2019 by Genesis Rea MD at [place] [facility] [place] N/A: Sternum JNJ : [employer] 03/17/2024 [id number] / / [id number] documented as of this encounter Visit Diagnoses Diagnosis 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 Care Teams Burr Bench Hand Relationship Specialty Start Date End Date Donn Garcia MD [address] [facility] [place] [address] PCP - General Internal Medicine 12/17/15 documented as of this encounter
--- OUTSIDE RECORDS SUMMARY | 2023-11-25 09:26 | External Medical Summary | Summary of Care ---
Author Name Unknown Organization [facility] Address [address] [place] [address] Phone [phone] Care Team Providers Care Pr Internship Name Role Phone Donn Clarke MD Primary Care Provider + Reason for Visit * Reason Comments Medication Refill Encounter Details Date Type Department Care Team (Late st Contact Info) Description 09/05/2023 Refill Pulmonary Medicine, [place] [address] [place] [address] Demetrius Bhat MD [address] [place] [address] Allergies Active Allergy Reactions Criticality Noted Date Comments Lorazepam Low 07/27/2019 Codeine Nausea/vomiting Low 10/31/2018 Pollen Wheezing,Cough Low 11/30/2016 documented as of this encounter (statuses as of 09/05/2023) Medications Medication Sig Dispensed Refills Start Date [...] coated 81 MG TBECIndications:Donell nary atherosclerosis of [place] coronary artery Take 2 Tabs by mouth [...] Extended Release (Isoptin SR)Indications:Coron myra atherosclerosis of [place] coronary artery,PAF (paroxysmal atrial fibrillation) ([facility]),HTN, goal below 140/90 TAKE ONE TABLET BY MOUTH EVERY MORNING 90 Tablet 4 3 12/02/19 24 Active Levothyroxine Sodium 137 MCG [...] Nasal Aerosol (Nasacort Allergy 24HR) Administer 1 [place] into each nostril daily as needed. 0 [...] Tablet 3 3 07/05/20 24 Active Ipratropium [place] 0.06 % Nasal Solution (Atrovent) Administer 1 [place] into each nostril at bedtime. 45 mL [...] AT BEDTIME 90 Capsule 2 4 Active Fluticasone-Salmeter ol 500-50 MCG/ACT Inhalation Aerosol Powder Breath Activated (Advair Diskus) INHALE ONE PUFF BY MOUTH EVERY MORNING AND ONE PUFF BEFORE BEDTIME 60 Each 12 4 09/04/19 25 Active Fluticasone-Salmeter ol 500-50 MCG/ACT Inhalation Aerosol Powder Breath Activated (Advair Diskus) INHALE ONE PUFF BY MOUTH EVERY MORNING AND ONE PUFF BEFORE BEDTIME 60 Each 12 3 09/05/19 24 Discontinu ed(Refill) Hospital, Clinic, or Other Facility Administered Medication Ordered Dose Route Frequency Start Date End Date Status methacholine (0 mg/mL) PLACEBO (Provocholine) inhalation solution 3 mLIndications:Shortness of breath 3 mL IN ONCE PRN 07/14/2022 Active documented as of this encounter (statuses as of 09/05/2023) Active Problems Problem Noted Date Diagnosed Date [...] single drug-eluting stent (3.0 x 15 mm [place]). 3. Successful PCI of ostial to mid [...] L upper back, R deltoid -2011 R restoration -2012 R temporal scalp -02/2014 BCC L chest -11/2018 BCC R medrano upper HX-MALIG SKIN MELANOMA - 2005 0.56 R post. 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, Hx melanoma in 2005, 0.56 mm on the Right neck; also hx MIS right midback 02/2014; L lower eyelid MIS 02/2018 Coronary atherosclerosis of [place] coronary estella ry 05/16/2007 BPH without obstruction/lower urinary tract symp toms 08/03/2002 Chronic rhinitis 08/03/2002 documented as of this encounter (statuses as of 09/05/2023) Resolved Problems Problem Noted Date Diagnosed Date [...] recommend f/u 3 years [employer] Other*[id number] 06/05/2007 08/24/2016 Overview: Study Title: Genomic Markers for Patients with Cardiovascular Disease Project # [id number] Hemmer Chainstitch: Aretha Rodríguez MD [phone] Coronary atherosclerosis of [place] coronary artery 05/16/2007 07/27/2019 ADVANCE DIRECTIVE INFORMATION [...] as of this encounter (statuses as of 09/05/2023) Immunizations Name Administration Dates Next Due COVID-19 mRNA, LNP-s, No Pre serve, 2-Dose Series (Ziptronix) 10/21/2021,04/20/2021,09/23/2020,08/25 COVID-19, LNP-s, No Preserve , Justyn-sucrose, [...] encounter Miscellaneous Notes * Telephone Encounter - Demetrius Bhat MD - 09/05/2023 10:56 AM ESTSigned Prescriptions: Disp Refills Fluticasone-Salmeterol 500-50 MCG/ACT Inha*60 Each12 Sig: INHALE ONE PUFF BY MOUTH EVERY MORNING AND ONE PUFF BEFORE BEDTIMEAuthorizing Provider: DEMETRIUS BHAT * Telephone Encounter - Cate Martinez OSA - 09/05/2023 10:51 AM ESTPending Prescriptions: Disp Refills Fluticasone-Salmeterol 500-50 MCG/ACT Inha*60 Each12 Sig: INHALE ONE PUFF BY MOUTH EVERY MORNING AND ONE PUFF BEFORE BEDTIME * Telephone Encounter - Cate Martinez OSA - 09/05/2023 10:49 AM EST Pending Prescriptions: Disp Refills Fluticasone-Salmeterol 500-50 MCG/ACT Inh*60 Each12 Sig: INHALE ONE PUFF BY MOUTH EVERY MORNING AND ONE PUFF BEFORE BEDTIME Most Recent Office Visit Date:08/17/2023 (in office), 08/11/2022 (telemedicine) Next Scheduled Office Visit Date:Visit date not found If no future appointments scheduled, and last appointment is greater than a year ago, please schedule patient for a follow-up appointment Last date the medication was ordered: [id number] Pharmacy: [facility] Please review and sign at your discretion. documented in this encounter Plan of Treatment Upcoming Encounters Date Type Department Care Team (Late st Contact Info) Description 09/08/2023 11:00 AM EST Office Visit Otolaryngology/Head & Neck/Facial Plastic Surgery [address] [facility] [place] [address] Francois Mae MD [address] [facility] [place] [address] 11/25/2023 10:00 AM EDT Office Visit [facility], [facility] [address] [facility] [address] Jonnathan Song PA-C [facility] [address] 12/08/2023 3:30 PM EDT Office Visit Dermatology [facility] [address] [place] [address] Ama Galvez MD [address] [place] [address] 02/15/2024 10:00 AM EDT Laboratory [facility], [facility] [phone] HernandezPaulette enamorado [facility] [address] [facility] [address] 02/22/2024 2:30 PM EDT Office Visit Hematology/Oncology [facility] [address] [phone] Smita Miller MD [address] [place] [address] [address] 02/24/2024 9:20 AM EDT Office Visit General Internal Medicine [facility] [address] [place] [address] [address] Donn Clarke MD [address] [place] [address] [address] 03/26/2024 10:30 AM EDT Nurse Only Ancillary Srinath Hernandez [place] [address] [facility] [place] [address] [place], Nurse Annual Wellness [facility] [address] [facility] [place] [address] Scheduled Procedures Name Priority Associated Diagnoses Date/Ti [...] this encounter Medical Devices Implanted Type Area Physician Relations Specialist Device Identifier Shelf Expiration Date Model / Serial / Lot Jenna Morgan .6x4.25 [id number] - [id number] Implanted:Qty : 1 on 06/26/2013 at OR [facility] [place] Left: Ear GYRUS : ENT 05/17/2022 [id number] / / [id number] Suture Steel 6 B&S19 M654g - [id number] Implanted:Qty : 4 on 07/14/2019 by Genesis Rea MD at OR [facility] [place] N/A: Sternum JNJ : [employer] 03/17/2024 M654G / / [id number] documented as of this encounter Advance Directives [...] and were consensually agreed upon. Care Teams Pr Internship Relationship Specialty Start Date End Date Donn Clarke MD 200 [facility] [place] [address] PCP - General Internal Medicine 12/17/15 documented as of this encounter
--- OUTSIDE RECORDS SUMMARY | 2023-11-25 09:26 | External Medical Summary ---
Author Name Unknown Address Unknown Organization K01:[facility] [place] - [address] [facility] [address] [place] [address] Laboratory Report Ordering Provider Test Date Status BRYANNA WONG 08/26/2023 15:33:34 Final Observation Date Value Abnormality Reference (Units) Status Bacteria identified in Specimen by Culture 08/26/2023 15:33:34 Mixed jaime suggestive of oropharyngeal contamination. Final Gram Stain 08/26/2023 15:33:34 Few Polymorphonuclear leukocytes Abnormal Final Gram Stain 08/26/2023 15:33:34 Moderate Gram positive cocci in chains Abnormal Final Gram Stain 08/26/2023 15:33:34 Rare Gram negative bacilli Abnormal Final Test: Culture, Bronchial, Q uantitative
Specimen Source: Lung, Left lower lobe
Specimen Type: Bronchoalveolar Lavage (BAL)
Specimen Date: 08/26/2023 3:33 PM
Result Date: 08/28/2023 7:45 AM
Result Status: Final result
Abnormal: Yes
Resulting Lab: [facility] [place]
[address]
[place] [address]

CULTURE

Mixed jaime suggestive of oropharyngeal contamination.

STAIN

Few Polymorphonuclear leukocytes

Moderate Gram positive cocci in chains

Rare Gram negative bacilli

null Performing Location [facility] [place] - [address] [place] [id number]
--- OUTSIDE RECORDS SUMMARY | 2023-11-25 09:26 | External Medical Summary | Summary of Care ---
Author Name Unknown Organization [facility] Address [address] [place] [address] Phone [phone] Care Team Providers Care Joint Terminal Attack Controller Name Role Phone Donn Clarke MD Primary Care Provider + Reason for Visit * Reason Comments Medication Refill Encounter Details Date Type Department Care Team (Late st Contact Info) Description 08/26/20[address] Internal Medicine [facility] [address] [place] [address] Donn Clarke MD [address] [place] [address] Congenital hypothyroidism without goiter Allergies Active Allergy Reactions Criticality Noted Date Comments Lorazepam Low 07/27/2019 Codeine Nausea/vomiting Low 10/31/2018 Pollen Wheezing,Cough Low 11/30/2016 documented as of this encounter (statuses as of 08/26/2023) Medications Medication Sig Dispensed Refills Start Date End Date Status Levothyroxine Sodium 150 MCG Oral Tablet (Levoxyl)Indication s:Congenital hypothyroidism without goiter TAKE ONE TABLET BY MOUTH ON TUESDAY AND TUESDAY ONLY, Levothyroxine 137mcg all other days. 24 Tablet 0 4 Active ACETAMINOPHEN 500 MG PO TABS Take 1 Tablet by mouth every 4 hours as needed for Pain. Do not take more then 3000 mg in a 24 hr period. 0 Suspended Dextran 70-Hypromellose 0.1-0.3 % Ophthalmic Solution Instill into eye as needed. 0 Suspended Probiotic Capsule Take 1 Cap by mouth daily. 0 9 Suspended aspirin enteric coated 81 MG TBECIndications:Cor onary atherosclerosis of [place] coronary artery Take 2 Tabs by mouth daily. 100 Tab 3 0 Suspended Additional Information Patient taking differently: 81 mgOralDAILY(1900), Reported on 11/10/2022 Vitamin D 25 MCG (1000 UT) Oral Tablet Take 1 Tablet by mouth once a day on Tuesday, Tuesday, and Tuesday only. 0 1 Suspended Metamucil 28.3 % Oral Powder (Psyllium) Take by mouth daily. 0 Suspended Albuterol Sulfate HFA 108 (90 Base) MCG/ACT Inhalation Aerosol SolutionIndications :Moderate persistent asthma without complication Inhale by mouth 2 Puffs every 6 hours as needed for Shortness of Breath. 18 g 5 2 Suspended Additional Information Patient taking differently:2 Puff Inhalation Q6H PRN, Shortness of Breath,Indications: COPD/breathing, Reported on 09/03/2022 Fluorouracil 5 % External Cream (Efudex)Indications :Actinic keratosis apply to affected areas of face/scalp nightly for 2-3 weeks 40 g 1 3 Suspended Additional Information Spironolactone 25 MG Oral Tablet (Aldactone) Take one-half Tablet by mouth in the morning. 50 Tablet 3 3 Suspended Additional Information prednisoLONE Acetate 1 % Ophthalmic Suspension (Pred Forte) PLACE 5 DROPS IN 8 OZ OF SALINE NASAL SOLUTION (DISTILLED WATER AND SALT) USE STERIOD/SALT/WATE R IRRIGATIONS TWICE PER DAY TO FLUSH NASAL/SINUS CAVITY NOT FOR USE IN EYES 45 mL 3 3 024 Suspended Additional Information Patient not taking.Reported on 08/26/2023 Tamsulosin HCl 0.4 MG Oral Capsule (Flomax)Indications :BPH without obstruction/lower urinary tract symptoms TAKE ONE CAPSULE BY MOUTH AT BEDTIME 90 Capsule 2 3 024 Suspended Additional Information Verapamil HCl ER 120 MG Oral Tablet Extended Release (Isoptin SR)Indications:Donell nary atherosclerosis of [place] coronary artery,PAF (paroxysmal atrial fibrillation) (HCC),HTN, goal below 140/90 TAKE ONE TABLET BY MOUTH EVERY MORNING 90 Tablet 4 3 024 Suspended Additional Information Fluticasone-[place] rol 500-50 MCG/ACT Inhalation Aerosol Powder Breath Activated (Advair Diskus) INHALE ONE PUFF BY MOUTH EVERY MORNING AND ONE PUFF BEFORE BEDTIME 60 Each 12 3 024 Suspended Additional Information Patient taking differently:1 Puff Inhalation BID (.AM/PM),Indications: COPD, Reported on 09/03/2022 Levothyroxine Sodium 137 MCG Oral TabletIndications:P ostoperative hypothyroidism TAKE ONE TABLET BY MOUTH EVERY DAY ON TUESDAY, TUESDAY, TUESDAY AND TUESDAY (AT LEAST THIRTY MINUTES PRIOR TO BREAKFAST OR OTHER MEDS) 60 Tablet 1 3 024 Suspended Additional Information Sertraline HCl 50 MG Oral Tablet (Zoloft)Indications :Moderate major depression (HCC) TAKE ONE TABLET BY MOUTH EVERY DAY 100 Tablet 3 3 024 Suspended Additional Information Ezetimibe 10 MG Oral Tablet (Zetia)Indications: Dyslipidemia, goal LDL below 70 TAKE ONE TABLET BY MOUTH EVERY MORNING 90 Tablet 3 3 024 Suspended Additional Information Montelukast Sodium 10 MG Oral Tablet (Singulair)Indicati ons:Moderate persistent asthma without complication TAKE 1 TABLET BY MOUTH EVERYDAY AT BEDTIME 90 Tablet 1 3 Suspended Additional Information Atorvastatin Calcium 80 MG Oral Tablet (Lipitor)Indication s:Dyslipidemia, goal LDL below 70 TAKE ONE TABLET BY MOUTH EVERY DAY 90 Tablet 3 3 024 Suspended Additional Information Triamcinolone Acetonide 55 MCG/ACT Nasal Aerosol (Nasacort Allergy 24HR) Administer 1 [place] into each nostril daily as needed. 0 Suspended Ipratropium-Albuter ol 0.5-2.5 (3) MG/3ML Inhalation Solution (Duoneb)Indications :ALEXANDER (dyspnea on exertion),Acute cough INHALE THE CONTENTS OF ONE VIAL VIA NEBULIZER EVERY 4 HOURS NEEDED FOR SHORTNESS OF BREATH AND OR WHEEZING 1620 mL 0 3 024 Suspended Additional Information Famotidine 20 MG Oral Tablet (Pepcid)Indications :Gastroesophageal reflux disease TAKE ONE TABLET BY MOUTH TWICE A DAY 180 Tablet 3 3 024 Suspended Additional Information Levothyroxine Sodium 150 MCG Oral Tablet (Levoxyl)Indication s:Congenital hypothyroidism without goiter TAKE ONE TABLET BY MOUTH ON TUESDAY, TUESDAY, AND TUESDAY ONLY 36 Tablet 0 3 024 Discontinued (Refill) Losartan Potassium 100 MG Oral Tablet (Cozaar)Indications :HTN, goal below 140/90 TAKE ONE TABLET BY MOUTH EVERY DAY 100 Tablet 3 3 024 Suspended Additional Information Ipratropium [place] 0.06 % Nasal Solution (Atrovent) Administer 1 [place] into each nostril at bedtime. 45 mL 3 4 Suspended Additional Information documented as of this encounter (statuses as of 08/26/2023) Active Problems Problem Noted Date Diagnosed Date [...] single drug-eluting stent (3.0 x 15 mm [place]). 3. Successful PCI of ostial to mid [...] L upper back, R deltoid -2011 R caodaism -2012 R temporal scalp -02/2014 BCC L chest -11/2018 BCC R medrano upper HX-MALIG SKIN MELANOMA - 2005 0.56 R post. 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, Hx melanoma in 2005, 0.56 mm on the Right neck; also hx MIS right midback 02/2014; L lower eyelid MIS 02/2018 Coronary atherosclerosis of [place] coronary estella ry 05/16/2007 BPH without obstruction/lower urinary tract symp toms 08/03/2002 Chronic rhinitis 08/03/2002 documented as of this encounter (statuses as of 08/26/2023) Resolved Problems Problem Noted Date Diagnosed Date [...] recommend f/u 3 years [employer] Other*[id number] 06/05/2007 08/24/2016 Overview: Study Title: Genomic Markers for Patients with Cardiovascular Disease Project # [id number] Auto Radio Mechanic: Aretha Rodríguez MD [phone] Coronary atherosclerosis of [place] coronary artery 05/16/2007 07/27/2019 ADVANCE DIRECTIVE [...] as of this encounter (statuses as of 08/26/2023) Immunizations Name Administration Dates Next Due COVID-19 mRNA, LNP-s, No Pre serve, 2-Dose Series ([employer]) 10/21/2021,04/20/2021,09/23/2020,08/25 COVID-19, LNP-s, No Preserve , Justyn-sucrose, [...] encounter Miscellaneous Notes * Telephone Encounter - Leeann Alvarado [facility] - 08/26/2023 3:17 PM ESTSigned Prescriptions: Disp Refills Levothyroxine Sodium 150 MCG Oral Tablet (*24 Tab*0 Sig: TAKE ONE TABLET BY MOUTH ON TUESDAY AND TUESDAY ONLY, Levothyroxine 137mcg all other days.Authorizing Provider: DONN CLARKE User: LEEANN ALVARADO * Telephone Encounter - Leeann Alvarado RPh - 08/26/2023 3:14 PM EST Per 08/22/23 TE: "TSH too low, need to cut back thyroid dose. Would cut levothyroxine to 150 mcg m/f only 137 mcg on all other days, please update chart once he is aware. Recheck tsh 4 weeks to follow " Patient was made aware in encounter however new dosage was not sent to pharmacy. Updated RX with dosing instructions as above. Repeat TSH ordered previously by PCP. Thanks, Leeann Alvarado Rph, Pharm D. Clinical Pharmacist [facility] (Formerly Telepharmacy)/[facility] [phone] 08/26/2023,3:17 PM documented in this encounter Plan of Treatment Upcoming Encounters Date Type Department Care Team (Late st Contact Info) Description 11/25/2023 10:00 AM EDT Office Visit Cardiology, [facility] [address] [address] Jonnathan Song PA-C [address] [address] 12/08/2023 3:30 PM EDT Office Visit Dermatology [facility] [address] [facility] [address] Ama Galvez MD [address] [facility] [place] [address] 12/09/2023 11:30 AM EDT Office Visit Otolaryngology/Head & Neck/Facial Plastic Surgery [address] [place] [address] Francois Mae MD [address] [place] [address] 02/15/2024 10:00 AM EDT [facility] [id number] Paulette Hernandezs [address] [facility] [address] 02/22/2024 2:30 PM EDT Office Visit Hematology/Oncology [facility] [address] [place] [address] Smita Miller MD 200 [facility] [place] [address] 02/24/2024 9:20 AM EDT Office Visit General Internal Medicine [facility] [address] [place] [address] Donn Clarke MD [address] [facility] [place] [address] 03/26/2024 10:30 AM EDT Nurse Only Ancillary [facility] [address] [facility] [place] [place] [address] David, Nurse Annual Wellness [facility] [address] [facility] [place] [address] Scheduled Procedures Name Priority Associated Diagnoses Date/Ti me BRONCHOSCOPY DIAGNOSTIC WITH OR WITHOUT WASHING Lung disorder 08/26/2023 2:35 PM EST COLONOSCOPY FLEXIBLE PROXIMAL DIAGNOSTIC Recall History of [...] this encounter Medical Devices Implanted Type Area Sheep Killer Device Identifier Shelf Expiration Date Model / Serial / Lot Jenna Smart .6x4.25 [id number] - [id number] Implanted:Qty : 1 on 06/26/2013 at [place] [facility] [place]: Ear GYRUS : ENT 05/17/2022 [id number] / / [id number] Suture Steel 6 B&S19 [id number] - [id number] Implanted:Qty : 4 on 07/14/2019 by Genesis Rea MD at [place] [facility] [place] N/A: Sternum JNJ : [employer] 03/17/2024 [id number] / / [id number] documented as of this encounter Visit Diagnoses Diagnosis Congenital hypothyroidism without goiter Congenital hypothyroidism documented in this encounter Additional Health Concerns Infection Onset Date Last Indicated Resolved Time Respiratory Rule-Out 08/26/2023 08/26/2023 documented as of this encounter Advance Directives [...] and were consensually agreed upon. Care Teams Joint Terminal Attack Controller Relationship Specialty Start Date End Date Donn Clarke MD [address] [place] [address] PCP - General Internal Medicine 12/17/15 documented as of this encounter
--- OUTSIDE RECORDS SUMMARY | 2023-11-25 09:26 | External Medical Summary | Summary of Care ---
Author Name Unknown Organization [facility] Address [address] [place] [address] Phone [phone] Care Team Providers Care Bench Machine Operator Name Role Phone Donn Clarke MD Primary Care Provider + Reason for Visit * Auth/Cert Specialty Diagnoses / Procedures Referred By Contac t Referred To Contact Diagnoses Lung disorder Lung disorder [J98.4] Procedures BRONCHOSCOPY, DIAGNOSTIC BRONCHOSCOPY DIAGNOSTIC WITH OR WITHOUT WASHING Referral ID Status Reason Start Date Expiration Date Visits Re quested Visits Authorized [id number] Encounter Details Date Type Department Care Team (Latest Contact Info) Description 08/26/2023 1:06 PM EST - 08/26/2023 11:59 PM EST Hospital Encounter ENDO [facility], Endoscopy Suite, [facility] 1, [address], [place] [id number] Md Courtney Galeano MD [address], [place] [id number] GI Bronchoscopy Discharge Disposition: Home - Self Care Allergies Active Allergy Reactions Criticality Noted Date Comments Lorazepam Low 07/27/2019 Codeine Nausea/vomiting Low 10/31/2018 Pollen Wheezing,Cough Low 11/30/2016 documented as of this encounter (statuses as of 08/27/2023) Medications Medication Sig Dispensed Refills Start Date [...] coated 81 MG TBECIndications:Donell nary atherosclerosis of [place] coronary artery Take 2 Tabs by mouth [...] 08/26/2023 Tamsulosin HCl 0.4 MG Oral Capsule (Flomax)Indications: BPH without obstruction/lower urinary tract symptoms TAKE ONE CAPSULE BY MOUTH AT BEDTIME 90 Capsule 2 12/10/2022 12/10/19 24 Active Verapamil HCl ER 120 MG Oral Tablet Extended Release (Isoptin SR)Indications:Coron myra atherosclerosis of [place] coronary artery,PAF (paroxysmal atrial fibrillation) (HCC),HTN, goal below 140/90 TAKE ONE TABLET BY MOUTH EVERY MORNING 90 Tablet 4 12/02/2022 12/02/19 24 Active Fluticasone-Salmeter ol 500-50 MCG/ACT Inhalation Aerosol Powder Breath Activated (Advair Diskus) INHALE ONE PUFF BY MOUTH EVERY MORNING AND ONE PUFF BEFORE BEDTIME 60 Each 12 08/29/2022 09/15/19 24 Active Additional Information Patient taking [...] Nasal Aerosol (Nasacort Allergy 24HR) Administer 1 [place] into each nostril daily as needed. 0 [...] Tablet 3 07/06/2023 07/05/20 24 Active Ipratropium [place] 0.06 % Nasal Solution (Atrovent) Administer 1 [place] into each nostril at bedtime. 45 mL 3 08/17/2023 Active Levothyroxine Sodium 150 MCG Oral Tablet (Levoxyl)Indications :Congenital hypothyroidism without goiter TAKE ONE TABLET BY MOUTH ON TUESDAY, TUESDAY, AND TUESDAY ONLY 36 Tablet 0 06/21/2023 08/26/19 24 Discontinu ed(Refill) documented as of this encounter (statuses as of 08/27/2023) Active Problems Problem Noted Date Diagnosed Date [...] single drug-eluting stent (3.0 x 15 mm [place]). 3. Successful PCI of ostial to mid LAD with 2 overlapping drug-eluting stents (3.0 x 34, 2.5 x 12 mm [place]). History of prostate cancer 12/01/2017 History of pulmonary embolism 06/02/2017 Hx of actinic keratosis 09/03/2016 Beta-blockers contraindicated 10/17/2014 Overview: HR controlled Asthma, moderate persistent 02/10/2011 HTN, goal below 140/90 01/21/2010 HX-SKIN MALIGNANCY NEC - multiple BCC 09/29/2009 Overview: BCCs: -2006 L neck -2006 L ala, R flank, L cheek, midback -2007 L upper back, R deltoid -2011 R jehovah's witness -2012 R temporal scalp -02/2014 BCC L chest -11/2018 BCC R medrano upper HX-MALIG SKIN MELANOMA - 2005 0.56 R post. 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, Hx melanoma in 2005, 0.56 mm on the Right neck; also hx MIS right midback 02/2014; L lower eyelid MIS 02/2018 Coronary atherosclerosis of [place] coronary estella ry 05/16/2007 BPH without obstruction/lower urinary tract symp toms 08/03/2002 Chronic rhinitis 08/03/2002 documented as of this encounter (statuses as of 08/27/2023) Resolved Problems Problem Noted Date Diagnosed Date [...] recommend f/u 3 years [employer] Other*[id number] 06/05/2007 08/24/2016 Overview: Study Title: [employer] Markers for Patients with Cardiovascular Disease Project # [id number] Vacuum Metalizer Operator: Aretha Rodríguez MD [phone] Coronary atherosclerosis of [place] coronary artery 05/16/2007 07/27/2019 ADVANCE DIRECTIVE INFORMATION [...] as of this encounter (statuses as of 08/27/2023) Immunizations Name Administration Dates Next Due COVID-19 mRNA, LNP-s, No Pre serve, 2-Dose Series (Soundl[employer]ly) 10/21/2021,04/20/2021,09/23/2020,08/25 COVID-19, LNP-s, No Preserve , Justyn-sucrose, [...] Sign Reading Time Taken Comments Blood Pressure 133/69 08/26/2023 4:40 PM EST Pulse 79 08/26/2023 4:40 PM EST Temperature 36.8 C (98.2 F) 08/26/2023 3:50 PM ES T Respiratory Rate 19 08/26/2023 4:40 PM EST Oxygen Saturation 99% 08/26/2023 4:40 PM EST Inhaled Oxygen Concentration - - Weight 84.2 kg (185 lb 11.2 oz) 08/26/2023 1:30 PM EST Height - - Body Mass Index 27.42 08/19/2023 9:32 AM EST documented in this [...] as of this encounter Progress Notes * Md Courtney Galeano MD - 08/26/2023 2:29 PM EST Endoscopy Pre-Procedure Assessment Name: Judith Crockett Date: 08/26/2023 Time: 2:29 PM Procedure(s): Bronchoscopy; with Indication(s) of pulmonary infiltration Endoscopy Pre-Procedure Assessment: Prior to the procedure, the patient is identified. The patient's history, medications and allergieshave been reviewed. The patient is competent. The risks and benefits of the proposed procedure and the planned sedation have been discussed with the patient. All questions have been answered and informed consent for the procedure has been obtained. Prior to Admission medications Medication Sig Last Dose Discont. Ipratropium [place] 0.06 % Nasal Solution (Atrovent) Administer 1 [place] into each nostril at bedtime. 08/25/2023 Losartan Potassium 100 MG Oral Tablet (Cozaar) TAKE ONE TABLET BY MOUTH EVERY DAY 08/25/2023 Famotidine 20 MG Oral Tablet (Pepcid) TAKE ONE TABLET BY MOUTH TWICE A DAY 08/26/2023 Levothyroxine Sodium 150 MCG Oral Tablet (Levoxyl) TAKE ONE TABLET BY MOUTH ON TUESDAY, TUESDAY, AND TUESDAY ONLY 08/26/2023 Ipratropium-Albuterol 0.5-2.5 (3) MG/3ML Inhalation Solution (Duoneb) INHALE THE CONTENTS OF ONE VIAL VIA NEBULIZER EVERY 4 HOURS NEEDED FOR SHORTNESS OF BREATH AND OR WHEEZING 08/26/2023 Triamcinolone Acetonide 55 MCG/ACT Nasal Aerosol (Nasacort Allergy 24HR) Administer 1 [place] into each nostril daily as needed. 08/26/2023 Atorvastatin Calcium 80 MG Oral Tablet (Lipitor) TAKE ONE TABLET BY MOUTH EVERY DAY 08/25/2023 Montelukast Sodium 10 MG Oral Tablet (Singulair) TAKE 1 TABLET BY MOUTH EVERYDAY AT BEDTIME 08/25/2023 Ezetimibe 10 MG Oral Tablet (Zetia) TAKE ONE TABLET BY MOUTH EVERY MORNING 08/25/2023 Sertraline HCl 50 MG Oral Tablet (Zoloft) TAKE ONE TABLET BY MOUTH EVERY DAY 08/25/2023 Levothyroxine Sodium 137 MCG Oral Tablet TAKE ONE TABLET BY MOUTH EVERY DAY ON TUESDAY, TUESDAY, TUESDAY AND TUESDAY (AT LEAST THIRTY MINUTES PRIOR TO BREAKFAST OR OTHER MEDS) 08/25/2023 Spironolactone 25 MG Oral Tablet (Aldactone) Take one-half Tablet by mouth in the morning. 08/25/2023 Tamsulosin HCl 0.4 MG Oral Capsule (Flomax) TAKE ONE CAPSULE BY MOUTH AT BEDTIME 08/25/2023 Verapamil HCl ER 120 MG Oral Tablet Extended Release (Isoptin SR) TAKE ONE TABLET BY MOUTH EVERY MORNING 08/26/2023 Fluorouracil 5 % External Cream (Efudex) apply to affected areas of face/scalp nightly for 2-3 weeks Past Month Metamucil 28.3 % Oral Powder (Psyllium) Take by mouth daily. 08/25/2023 Vitamin D 25 MCG (1000 UT) Oral Tablet Take 1 Tablet by mouth once a day on Tuesday, Tuesday, and Tuesday only. 08/25/2023 Probiotic Capsule Take 1 Cap by mouth daily. 08/25/2023 Dextran 70-Hypromellose 0.1-0.3 % Ophthalmic Solution Instill into eye as needed. 08/26/2023 ACETAMINOPHEN 500 MG PO TABS Take 1 Tablet by mouth every 4 hours as needed for Pain. Do not take more then 3000 mg in a 24 hr period. Past Month prednisoLONE Acetate 1 % Ophthalmic Suspension (Pred Forte) PLACE 5 DROPS IN 8 OZ OF SALINE NASAL SOLUTION (DISTILLED WATER AND SALT) USE STERIOD/SALT/WATER IRRIGATIONS TWICE PER DAY TO FLUSH NASAL/SINUS CAVITY NOT FOR USE IN EYES Patient not taking: Reported on 08/26/2023 Not Taking Fluticasone-Salmeterol 500-50 MCG/ACT Inhalation Aerosol Powder Breath Activated (Advair Diskus) INHALE ONE PUFF BY MOUTH EVERY MORNING AND ONE PUFF BEFORE BEDTIME Patient taking differently: Inhale 1 Puff by mouth in the morning and 1 Puff before bedtime. Albuterol Sulfate HFA 108 (90 Base) MCG/ACT Inhalation Aerosol Solution Inhale by mouth 2 Puffs every 6 hours as needed for Shortness of Breath. Patient taking differently: Inhale 2 Puffs by mouth every 6 hours as needed for Shortness of Breath. aspirin enteric coated 81 MG TBEC Take 2 Tabs by mouth daily. Patient taking differently: Take 1 Tablet by mouth every evening. Review of patient's allergies indicates: Allergen Reactions Ativan [Lorazepam] Codeine Nausea/vomiting Pollen Wheezing and Cough BP 125/50 | Pulse 63 | Temp 36.7 C (98.1 F) (Tympanic) | Resp 21 | Wt 84.2 kg (185 lb 11.2 oz) | SpO2 95% | BMI 27.42 kg/m | BSA 2.02 m Physical Exam: Mental Status Examination: alert and oriented. Airway Examination: normal oropharyngeal airway and neck mobility. Respiratory Examination: clear to auscultation. CV Examination: normal. ASA Grade: III - A patient with severe systemic disease. Abdomen: negative This patient has undergone a preprocedural evaluation. A determination has been made to proceed with the planned procedure under [facility] procedural guidelines and the [facility] Non-Emergent, Elective Medical Services and Treatment Recommendations (published on 10-23-19). The community and hospital prevalence of COVID-19 has been discussed as well as this patient's specific risks associated with SARS-CoV-19 infection. Based upon the clinical acuity and patient-specific care considerations, this procedure is deemed a Tier II - Intermediate acuity treatment or service with either progression or the threat of progressive disease related to the delay in treatment. Not providing the service has the potential for increasing morbidity or mortality. After reviewing the risks and benefits, the patient is deemed in satisfactory condition to undergo the procedure. The anesthesia plan is to use general anesthesia. Md Courtney Galeano MD 08/26/2023 documented in this encounter Procedure Notes * Macrina Bhat MD - 08/26/2023 2:13 PM ESTAssociated Order(s): BRONCHOSCOPY [facility] Patient Name: Judith Crockett Procedure Date: 08/26/2023 2:13 PM Date of : 1940 Admit Type: Outpatient Note Status: Finalized Date of : 1940 Admit Type: Outpatient Age: 82 Room: Endo room 10 Gender: Male Note Status: Finalized Procedure: Bronchoscopy with Bronchalveolar lavage Indications: Multiple pulmonary nodules Providers: Courtney Galeano MD, Emily Lozano (Fellow), Annia Colby RN Referring MD: Macrina Bhat MD (Referring MD), Donn Clarke MD (Referring MD) Medicines: See the Anesthesia note for documentation of the administered medications Complications: No immediate complications, Procedure: Pre-Anesthesia Assessment: - The supervising physician was present for the entire procedure from scope insertion until scope withdrawal. After obtaining informed consent, the BF-P180 Bronchoscope ([id number]) was introduced through the mouth, via the endotracheal tube (the patient was intubated for the procedure) and advanced to the tracheobronchial tree. All instruments were visually inspected immediately before and after removal from the patient to ensure they are fully intact. The procedure was accomplished without difficulty. Findings & Specimens: The endotracheal tube is in good position. The visualized portion of the trachea is of normal caliber. The jenifer is sharp. The tracheobronchial tree was examined to at least the first subsegmental level. Bronchial mucosa was erythematous; anatomy showed enlarged bronchioles consistent with bronchiectasis; there are no endobronchial lesions. There were moderate amount of mucopurulent secretions with mucus pluggings throughout both lungs which were suctioned out. The bronchoscope was advanced until wedged at the desired location for bronchoalveolar lavage. BAL was performed in the LLL posterior basal segment (B10) of the lung and sent for cell count and differential, routine cytology and bacterial, AFB, fungal and viral analysis. 170 mL of fluid were instilled. 17 mL were returned. The return was cloudy. Mucous plugs were present in the return fluid. The cell count with differential, cytology and microbiology specimen was placed in Bottle A. Washings were obtained in the right middle lobe, in the right lower lobe, in the left upper lobe and in the left lower lobe and sent for AFB analysis & culture. The return was cloudy. Multiple specimens were obtained and pooled into one specimen, which was sent for analysis. The return was cloudy. 9 mL of fluid were instilled. 7 mL were returned. The microbiology specimen was placed in Bottle B. Impression: - Multiple pulmonary nodules - The airway examination was as above - Bronchoalveolar lavage was performed. Recommendation: - Await BAL, culture, cytology and washing results. Courtney Galeano MD 08/26/2023 3:45:35 PM Emily Lozano, documented in this encounter Nursing Notes * Bernadine Srinivasan RN - 08/26/2023 4:59 PM EST Per verbal order, the physician and/or designant examined the patient, prescribed and verified the charted medications and certify that he is recovered for safe discharge from Endoscopy. Patient is discharged under the care of : spouse Report called to N/A Means of transportation: wheelchair Discharge instructions reviewed by: Physician and Nurse Special discharge instructions given for: Post anesthesia care Bronchoscopy: N/A Patient verbalized understanding of discharge instructions: YES * Bernadine Srinivasan RN - 08/26/2023 4:[address] Diaz, and Dr. Casas, pt approved for d/c at this time. * Bernadine Srinivasan RN - 08/26/2023 4:36 PM EST Pt coughing. Pt's SpO2 97% on RA and breathing unlabored. Dr. Diaz and Dr. Rito reyna notified. * Bernadine Srinivasan RN - 08/26/2023 4:26 PM EST Patient out of bed to chair with assist. * Bernadine Srinivasan RN - 08/26/2023 4:06 PM EST Patient sitting up in stretcher. Patient offered drink, and is tolerating P.O. fluids well. * Annia Colby RN - 08/26/2023 3:20 PM EST Specimen(s) and location(s) verified with physician post procedure 3:20 PM Annia Colby RN * Annia Colby RN - 08/26/2023 2:37 PM EST Procedure being completed under general anesthesia. Please see anesthesia record for medications and vital signs. documented in this encounter Plan of Treatment Upcoming Encounters Date Type Department Care Team (Late st Contact Info) Description 11/25/2023 10:00 AM EDT [facility] [place] [address] Jonnathan Song PA-C [address] [place] [address] 12/08/2023 3:30 PM EDT Office Visit Dermatology [place] [address] [facility] [place] [address] Ama Galvez MD [address] [place] [address] 12/09/2023 11:30 AM EDT Office Visit Otolaryngology/Head & Neck/Facial Plastic Surgery [address] [facility] [place] [address] Francois Mae MD [address] [place] [address] 02/15/2024 10:00 AM EDT Laboratory Laboratory, [facility] [address] [place] [id number] [place], [facility] [address] [place] [address] 02/22/2024 2:30 PM EDT Office Visit Hematology/Oncology [facility] [address] [place] [address] Smita Miller MD [address] [place] [address] 02/24/2024 9:20 AM EDT Office Visit General Internal Medicine [facility] [address] [place] [address] Donn Clarke MD [address] [facility] [place], [place] [address] 03/26/2024 10:30 AM EDT Nurse Only Ancillary [facility] [address] [place] [address] [facility], Nurse Annual Wellness [facility] [address] [place] [address] Pending Results Name Type Priority Associated Diagnoses Date /Time CULTURE, BRONCHIAL, QUANTITATIVE Lab STAT 08/26/2023 3:33 PM EST CULTURE,FUNGUS,NON-DERM Lab STAT 0 08/26/2023 3:33 PM EST CYTOMEGALOVIRUS (CMV) RAPID CULTURE Lab STAT 08/26/2023 3:33 PM EST CULTURE, AFB Lab STAT 08/26/2023 3 :33 PM EST CULTURE LEGIONELLA Lab STAT 2023 3:33 PM EST CYTOLOGY Pathology Routine 08/26/2023 3:3 3 PM EST CULTURE, AFB Lab STAT 08/26/2023 3 :34 PM EST Scheduled Orders Name Type Priority Associated Diagnoses Orde r Schedule CYTOMEGALOVIRUS (CMV) RAPID CULTURE Lab STAT One Time for 1 Occurrences starting 08/26/2023 until 08/26/2023 CYTOLOGY Pathology Routine One Time for 1 Occurrences starting 08/26/2023 until 08/26/2023, 1 completed Scheduled Procedures Name Priority Associated Diagnoses Date/Ti [...] this encounter Medical Devices Implanted Type Area Correctional Supply Supervisor Device Identifier Shelf Expiration Date Model / Serial / Lot Jenna Morgan .6x4.25 [id number] - [id number] Implanted:Qty : 1 on 06/26/2013 at [facility] Left: Ear GYRUS : ENT 05/17/2022 [id number] / / [id number] Suture Steel 6 B&S19 M654g - [id number] Implanted:Qty : 4 on 07/14/2019 by Genesis Rea MD at OR [facility] N/A: Sternum JNJ : [employer] 03/17/2024 [id number] / / [id number] documented as of this encounter Procedures Procedure Name Priority Date/Time Associated Diagnosis Comments CULTURE, AFB STAT 08/26/2023 3:34 PM EST RESPIRATORY PATHOGEN PANEL, PCR STAT 08/26/2023 3:33 PM EST CULTURE, BRONCHIAL, QUANTITATIVE STAT 08/26/2023 3:33 PM EST CULTURE, AFB STAT 08/26/2023 3:33 PM EST CULTURE LEGIONELLA STAT 08/26/2023 3: 33 PM EST PNEUMOCYSTIS SMEAR STAT 08/26/2023 3: 33 PM EST CULTURE,FUNGUS,NON-DE RM STAT 08/26/2023 3:33 PM EST BRONCHOSCOPY 08/26/2023 2:13 PM EST documented in this encounter Results * PNEUMOCYSTIS SMEAR (08/26/2023 3:33 PM EST) Pneumocystis Smear Result No Pneumocystis jirovecii (formerly P. carinii) seen No Pneumocystis jirovecii (formerly P. carinii) seen 08/26/2023 11:53 PM EST LABORATORY [facility] Bronchoalveolar Lavage (BAL) Structure of lower lobe of left lung / Unknown 08/26/2023 3:33 PM EST 08/26/2023 4:41 PM EST Md Courtney Galeano MD LAB MICRO - GENERAL ORDERABLES LABORATORY [facility] [address] [place] [address] * RESPIRATORY PATHOGEN PANEL, PCR (08/26/2023 3:33 PM EST) [facility] Adenovirus by PCR Negative Negative 024 6:12 PM EST LABORATORY [facility] Coronavirus 229E by PCR Negative Negative 08/26/2023 6:12 PM EST LABORATORY [facility] Coronavirus HKU1 by PCR Negative Negative 08/26/2023 6:12 PM EST LABORATORY [facility] Coronavirus NL63 by PCR Negative Negative 08/26/2023 6:12 PM EST LABORATORY [facility] Coronavirus OC43 by PCR Negative Negative 08/26/2023 6:12 PM EST LABORATORY [facility] Coronavirus SARS-CoV-2 by PCR Negative Negative 08/26/2023 6:12 PM EST LABORATORY [facility] Human Metapneumovirus by PCR Negative Negative 08/26/2023 6:12 PM EST LABORATORY [facility] Rhinovirus/Enterovi tom by PCR Negative Negative 08/26/2023 6:12 PM EST LABORATORY [facility] Influenza A Virus by PCR Negative Negative 08/26/2023 6:12 PM EST LABORATORY [facility] Influenza B Virus by PCR Negative Negative 08/26/2023 6:12 PM EST LABORATORY [facility] Parainfluenza Virus 1 by PCR Negative Negative 08/26/2023 6:12 PM EST LABORATORY [facility] Parainfluenza Virus 2 by PCR Negative Negative 08/26/2023 6:12 PM EST LABORATORY [facility] Parainfluenza Virus 3 by PCR Negative Negative 08/26/2023 6:12 PM EST LABORATORY [facility] Parainfluenza Virus 4 by PCR Negative Negative 08/26/2023 6:12 PM EST LABORATORY [facility] Respiratory Syncytial Virus by PCR Negative Negative 08/26/2023 6:12 PM EST LABORATORY [facility] Bordetella pertussis by PCR Negative Negative 08/26/2023 6:12 PM EST LABORATORY [facility] Chlamydia pneumoniae by PCR Negative Negative 08/26/2023 6:12 PM EST LABORATORY [facility] Mycoplasma pneumoniae by PCR Negative Negative 08/26/2023 6:12 PM EST LABORATORY [facility] Bordetella parapertussis by PCR Negative Negative 08/26/2023 6:12 PM EST LABORATORY [facility] Comment: The primers that detect Rhinovirus may cross react with some Enterorviruses. The validation of bronchial specimens, tracheal aspirates, and throats for this assay was developed and performance characteristics determined by [employer] staff. The validation of alternate specimen types has not been cleared or approved by the U.S. Food and Drug Administration (FDA). It has been determined that such clearance or approval is not necessary. Bronchoalveolar Lavage (BAL) Structure of lower lobe of left lung / Unknown 08/26/2023 3:33 PM EST 08/26/2023 4:41 PM EST Md Courtney Galeano MD LAB MICRO - GENERAL ORDERABLES LABORATORY [facility] [address] [place] [address] * BRONCHOSCOPY (08/26/2023 2:13 PM EST) 08/26/2023 2:13 PM EST Narrative Procedure Note Macrina Bhat MD - 08/26/2023 2:13 PM EST [facility] Patient Name: Judith Crockett Procedure Date: 08/26/2023 2:13 PM Date of : 1940 Admit Type: Outpatient Note Status:Finalized Date of : 1940 Admit Type: Outpatient Age: 82 Room: Endo room 10 Gender: Male Note Status: Finalized Procedure: Bronchoscopy with Bronchalveolar lavage Indications: Multiple pulmonary nodules Providers: Courtney Galeano MD, Emily Lozano (Fellow), MARYJO Nicole Referring MD: Macrina Bhat MD (Referring MD), Donn Romero MD (Referring ) Medicines: See the Anesthesia note for documentation of theadministered medications Complications: No immediate complications, Procedure: Pre-Anesthesia Assessment: - The supervising physician was present for theentire procedure from scope insertion until scope withdrawal. After obtaining informed consent, the BF-A663Rflamyuwskye ([id number]) was introduced through the mouth, via the endotracheal tube (thepatient was intubated for the procedure) and advanced to the tracheobronchialtree. All instruments were visually inspected immediately before and after removal fromthe patient to ensure they are fully intact. The procedure was accomplishedwithout difficulty. Findings & Specimens: The endotracheal tube is in good position. The visualized portion ofthe trachea is of normal caliber. The jenifer is sharp. The tracheobronchial tree was examined to atleast the first subsegmental level. Bronchial mucosa was erythematous; anatomy showed enlargedbronchioles consistent with bronchiectasis; there are no endobronchial lesions. There were moderate amount ofmucopurulent secretions with mucus pluggings throughout both lungs which were suctioned out. The bronchoscope was advanced until wedged at the desired locationfor bronchoalveolar lavage. BAL was performed in the LLL posterior basal segment (B10) of the lung andsent for cell count and differential, routine cytology and bacterial, AFB, fungal and viralanalysis. 170 mL of fluid were instilled. 17 mL were returned. The return was cloudy. Mucous plugswere present in the return fluid. The cell count with differential, cytology and microbiology specimenwas placed in Bottle A. Washings were obtained in the right middle lobe, in the right lowerlobe, in the left upper lobe and in the left lower lobe and sent for AFB analysis & culture. The returnwas cloudy. Multiple specimens were obtained and pooled into one specimen, which was sent for analysis.The return was cloudy. 9 mL of fluid were instilled. 7 mL were returned. The microbiology specimen was placed in Bottle B. Impression: - Multiple pulmonary nodules - The airway examination was as above - Bronchoalveolar lavage was performed. Recommendation: - Await BAL, culture, cytology and washingresults. Courtney Galeano MD 08/26/2023 3:45:35 PM Emily Lozano, Macrina Bhat MD [facility] documented in this encounter Visit Diagnoses Diagnosis Bronchiectasis without complication (HCC)- Primary Bronchiectasis without acute exacerbation documented in this encounter Administered Medications Inactive Administered Medications - up to 3 most recent administrations Medication Order MAR Action Action Date Dose Rate Site albuterol-ipratropium (Duoneb) inhalation solution 3 mL 3 mL, Nebulizer, ONCE, On Tue08/26/23 at 1530, For 1 dose, 3 mL = 0.5 mg ipratropium/ 2.5 mg albuterol Given 08/26/2023 2:47 PM EST 3 mL albuterol-ipratropium (Duoneb) inhalation solution 3 mL 3 mL, Nebulizer, RESPQID, First dose on Tue08/26/23 at 1630, Until Discontinued, 3 mL = 0.5 mg ipratropium/ 2.5 mg albuterol Given 08/26/2023 4:30 PM EST 3 mL isolyte-S pH 7.4 infusion Intravenous, at 75 mL/hr, Plasma-LYTE 148, isolyte-S, and isolyte-S pH 7.4 are considered equivalent - including for MAR barcode scanning., CONTINUOUS, Starting on Tue08/26/23 at 1400, Until Tue08/26/23 at 1659, Pre-Op Restarted 08/26/2023 2:44 PM EST New Bag 08/26/2023 1:44 PM EST 75 mL/hr oxygen GAS Inhalation, OXYGEN, First dose on Tue08/26/23 at 1600, Until Discontinued, Device/Managed by: Low Flow Device, Goal SPO2 (%): 91-95, Starting Device: Nasal Cannula, Initial Flow Rate (LPM): 2, Lowest Support: Nasal Cannula: Flow 0-6 LPM. Titrate up/down by 1 LPM., Titration Interval: Q2 minutes and as needed., Notify Provider: For sudden DECREASE in resting SPO2 to less than 85% and when escalating delivery device., Wean patient off Oxygen when the oxygen saturation is greater than or equal to 93% documented in this encounter Active and Recently Administered Medications Times are shown in EST. Scheduled Medication Order 08/24/2023 08/25/2023 08/26/2023 albuterol-ipratropium (Duoneb) inhalation solution 3 mL (COMPLETED) 3 mL, Nebulizer, ONCE, On Tue08/26/23 at 1530, For 1 dose, 3 mL = 0.5 mg ipratropium/ 2.5 mg albuterol 1447 (Given - Provid er: Annia Colby RN) albuterol-ipratropium (Duoneb) inhalation solution 3 mL 3 mL, Nebulizer, RESPQID, First dose on Tue08/26/23 at 1630, Until Discontinued, 3 mL = 0.5 mg ipratropium/ 2.5 mg albuterol 1630 (Given - Provid er: Bernadine Srinivasan RN)1999 (Due) oxygen GAS Inhalation, OXYGEN, First dose on Tue08/26/23 at 1600, Until Discontinued, Device/Managed by: Low Flow Device, Goal SPO2 (%): 91-95, Starting Device: Nasal Cannula, Initial Flow Rate (LPM): 2, Lowest Support: Nasal Cannula: Flow 0-6 LPM. Titrate up/down by 1 LPM., Titration Interval: Q2 minutes and as needed., Notify Provider: For sudden DECREASE in resting SPO2 to less than 85% and when escalating delivery device., Wean patient off Oxygen when the oxygen saturation is greater than or equal to 93% 1600 (Due) Continuous Medication Order 08/24/2023 08/25/2023 08/26/2023 isolyte-S pH 7.4 infusion () Intravenous, at 75 mL/hr, Plasma-LYTE 148, isolyte-S, and isolyte-S pH 7.4 are considered equivalent - including for MAR barcode scanning., CONTINUOUS, Starting on Tue08/26/23 at 1400, Until Tue08/26/23 at 1659, Pre-Op 1344 (New Bag - Prov ider: Liz Norwood RN)1443 (Paused - Provider: Yris Pennington CRNA - Comment: Switch to gravity)1444 (Restarted - Provider: Yris Pennington CRNA)1546 (Entry Error - Provider: Yris Pennington CRNA - Comment: Switch to gravity)1547 (Stopped - Provider: Yris Pennington CRNA) documented in this encounter Additional Health Concerns [...] and were consensually agreed upon. Care Teams Bench Machine Operator Relationship Specialty Start Date End Date Donn Clarke MD [address] [place] [address], [place] [address] PCP - General Internal Medicine 12/17/15 documented as of this encounter"
--- OUTSIDE RECORDS SUMMARY | 2023-11-25 09:26 | External Medical Summary | Summary of Care ---
Author Name Unknown Organization [facility] Address [address] [place] [address] Phone [phone] Care Team Providers Care Fieldwork Coordinator Name Role Phone Donn Clarke MD Primary Care Provider + Encounter Details Date Type Department Care Team (Late st Contact Info) Description 09/05/2023 Orders Only Pulmonary Medicine, [place] [address] [place] [address] Min Harding MD [address] [place] [address] Allergies Active Allergy Reactions Criticality [...] coated 81 MG TBECIndications:Donell nary atherosclerosis of [place] coronary artery Take 2 Tabs by mouth [...] Extended Release (Isoptin SR)Indications:Coron myra atherosclerosis of [place] coronary artery,PAF (paroxysmal atrial fibrillation) (HCC),HTN, goal [...] Nasal Aerosol (Nasacort Allergy 24HR) Administer 1 [place] into each nostril daily as needed. 0 [...] 100 Tablet 3 07/06/2023 4 Active Ipratropium [place] 0.06 % Nasal Solution (Atrovent) Administer 1 [place] into each nostril at bedtime. 45 mL [...] single drug-eluting stent (3.0 x 15 mm [place]). 3. Successful PCI of ostial to mid [...] L ala, R flank, L cheek, midback -2008 L upper back, R deltoid -2011 R bahai -2012 R temporal scalp -02/2014 BCC L chest -11/2018 BCC R medrano upper HX-MALIG SKIN MELANOMA - 2005 0.56 R post. 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, Hx melanoma in 2005, 0.56 mm on the Right neck; also hx MIS right midback 02/2014; L lower eyelid MIS 02/2018 Coronary atherosclerosis of [place] coronary estella ry 05/16/2007 BPH without obstruction/lower [...] recommend f/u 3 years [employer] Other*[id number] 06/05/2007 08/24/2016 Overview: Study Title: Genomic Markers for Patients with Cardiovascular Disease Project # [id number] Bottle Filler: Aretha Rodríguez MD [phone] Coronary atherosclerosis of [place] coronary artery 05/16/2007 07/27/2019 ADVANCE DIRECTIVE INFORMATION [...] mRNA, LNP-s, No Pre serve, 2-Dose Series (ZenSuite) 10/21/2021,04/20/2021,09/23/2020,08/25 COVID-19, LNP-s, No Preserve , Justyn-sucrose, [...] 11/25/2023 10:00 AM EDT Office Visit Cardiology, [facility] [address] [address] Jonnathan Song PA-C [address] [place] [address] 12/08/2023 3:30 PM EDT Office Visit Dermatology [facility] [address] [place] [address] Ama Galvez MD [address] [place] [address] 12/09/2023 11:30 AM EDT Office Visit Otolaryngology/Head & Neck/Facial Plastic Surgery [address] [place] [address] Francois Mae MD [address] [place] [address] 02/15/2024 10:00 AM EDT Laboratory Laboratory, [facility] [phone] Paulette Hernandez [facility] [address] [facility] [address] 02/22/2024 2:30 PM EDT Office Visit Hematology/Oncology [facility] [address] [place] [phone] Smita Miller MD [address] [place] [address] 02/24/2024 9:20 AM EDT Office Visit General Internal Medicine [facility] [address] [place], [place] [address] Donn Clarke MD [address] [place] [address] 03/26/2024 10:30 AM EDT Nurse Only Ancillary [facility] [address] David Nurse [facility] Wellness [facility] [address] [place] [address] Scheduled Procedures Name Priority Associated Diagnoses Date/Ti [...] this encounter Medical Devices Implanted Type Area Dust Collector Attendant Device Identifier Shelf Expiration Date Model / Serial / Lot Piston Smart .6x4.25 [id number] - [id number] Implanted:Qty : 1 on [place]2013 [place] [facility] [place]: Ear GYRUS : ENT 05/17/2022 [id number] / / [id number] Suture Steel 6 B&S19 M654g - [id number] Implanted:Qty : 4 on 07/14/2019 by Genesis Rea MD [place] [facility] [place]/A: Sternum JNJ : [employer] 03/17/2024 M654G / / [id number] documented as of this encounter Advance Directives [...] and were consensually agreed upon. Care Teams Fieldwork Coordinator Relationship Specialty Start Date End Date Donn Clarke MD [address] [place] [address], [place] [address] PCP - General Internal Medicine 12/17/15 documented as of this encounter
--- OUTSIDE RECORDS SUMMARY | 2023-11-25 09:26 | External Medical Summary | Summary of Care ---
Author Name Unknown Organization [facility] Address [address] [place] [address] Phone [phone] Care Team Providers Care Fly Winder Name Role Phone Donn Clarke MD Primary Care Provider + Reason for Visit * Reason Onset Date Comments Appointment 09/05/2023 Spoke with stephan fisher and confirmed appointment with Carmelita for 12/09/23 at 11:30 AM. Patient accepted and acknowledged appointment. Encounter Details Date Type Department Care Team ([facility] Contact Info) Description 09/05/2023 Telephone Otolaryngology/Head & Neck/Facial Plastic Surgery [address] [place] [address] Francois Mae MD [address] [place] [address] Appointment (Spoke with patient and confir... Allergies Active Allergy Reactions Criticality Noted Date [...] coated 81 MG TBECIndications:Donell nary atherosclerosis of [place] coronary artery Take 2 Tabs by mouth [...] Extended Release (Isoptin SR)Indications:Coron myra atherosclerosis of [place] coronary artery,PAF (paroxysmal atrial fibrillation) (HCC),HTN, goal [...] Nasal Aerosol (Nasacort Allergy 24HR) Administer 1 [place] into each nostril daily as needed. 0 [...] 100 Tablet 3 07/06/2023 4 Active Ipratropium [place] 0.06 % Nasal Solution (Atrovent) Administer 1 [place] into each nostril at bedtime. 45 mL [...] BEFORE BEDTIME 60 Each 12 09/05/2023 Active Hospital, Clinic, or Other Facility [...] single drug-eluting stent (3.0 x 15 mm [place]). 3. Successful PCI of ostial to mid [...] L upper back, R deltoid -2011 R jainism -2012 R temporal scalp -02/2014 BCC L chest -11/2018 BCC R medrano upper HX-MALIG SKIN MELANOMA - 2005 0.56 R post. 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, Hx melanoma in 2005, 0.56 mm on the Right neck; also hx MIS right midback 02/2014; L lower eyelid MIS 02/2018 Coronary atherosclerosis of [place] coronary estella ry 05/16/2007 BPH without obstruction/lower [...] recommend f/u 3 years [employer] Other*[id number] 06/05/2007 08/24/2016 Overview: Study Title: Genomic Markers for Patients with Cardiovascular Disease Project # [id number] Train Controller: Aretha Rodríguez MD [phone] Coronary atherosclerosis of [place] coronary artery 05/16/2007 07/27/2019 ADVANCE DIRECTIVE INFORMATION [...] mRNA, LNP-s, No Pre serve, 2-Dose Series (T-VIPS) 10/21/2021,04/20/2021,09/23/2020,08/25 COVID-19, LNP-s, No Preserve , Justyn-sucrose, Ages 12+ (Pfizer) 10/21/2021 COVID-19, MRNA-LNP, 23-24, P F, 30 MCG/0.3 mL, 12 YRS AND ABOVE, IM (eZelleron-Comirnaty) 04/12/2023 Covid-19, Mrna, Lnp-s, Pf, B ivalent, [...] encounter Miscellaneous Notes * Telephone Encounter - Ama Parada OSA - 09/05/2023 11:37 AM EST Spoke with patient and confirmed appointment with Carmelita for 12/09/23 at 11:30 AM. Patient acceptedand acknowledged appointment. documented in this encounter Plan of Treatment Upcoming Encounters Date Type Department Care Team (Late st Contact Info) Description 11/25/2023 10:00 AM EDT Office Visit Cardiology, [facility] [place] [address] Jonnathan Song PA-C [facility] [place] [address] 12/08/2023 3:30 PM EDT Office Visit Dermatology [facility] [address] [place] [address] Ama Galvez MD 200 [facility] [place] [address] 12/09/2023 11:30 AM EDT Office Visit Otolaryngology/Head & Neck/Facial Plastic Surgery [address] [place] [address] Francois Mae MD [address] [place] [address] 02/15/2024 10:00 AM EDT Laboratory Laboratory, [facility] [phone] Paulette Hernandez [facility] 132 [place] [address] 02/22/2024 2:30 PM EDT Office Visit Hematology/Oncology [facility] [address] [place] [phone] Smita Miller MD [address] [place] [address] 02/24/2024 9:20 AM EDT Office Visit General Internal Medicine [facility] 200 [place] [address] Donn Clarke MD 200 [facility] [place] [address] 03/26/2024 10:30 AM EDT Nurse Only Ancillary [facility] 132 [facility] [place] [address] [facility], Nurse Annual [facility] 132 [facility] [place] [address] Scheduled Procedures Name Priority Associated Diagnoses Date/Ti [...] this encounter Medical Devices Implanted Type Area Nurse Paralegal Device Identifier Shelf Expiration Date Model / Serial / Lot Pisearl Smart .6x4.25 [id number] - [id number] Implanted:Qty : 1 on 06/26/2013 at [place] [facility] [place] Left: Ear GYRUS : ENT 05/17/2022 [id number] / / [id number] Suture Steel 6 B&S19 M654g - [id number] Implanted:Qty : 4 on 07/14/2019 by Genesis Rea MD at OR [facility] [place] N/A: Sternum JNJ : [employer] 03/17/2024 M654G / / [id number] documented as of this encounter Advance Directives [...] and were consensually agreed upon. Care Teams Fly Winder Relationship Specialty Start Date End Date Donn Clarke MD 200 [facility] [place], [place] [address] PCP - General Internal Medicine 12/17/15 documented as of this encounter
--- OUTSIDE RECORDS SUMMARY | 2023-11-25 09:26 | External Medical Summary ---
Author Name Unknown Address Unknown Organization [id number]:[facility] [address] 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 carinii) seen No Pneumocystis jirovecii (formerly P. carinii) seen Final Performing Location [facility] [address] [facility] [address]
--- OUTSIDE RECORDS SUMMARY | 2023-11-25 09:27 | External Medical Summary ---
Author Name Unknown Address Unknown Organization K01:[facility] [place] [address] [place] [address] Laboratory Report Ordering Provider Test Date Status BRYANNA WONG 08/26/2023 15:33:34 Final Observation Date Value Abnormality Reference (Units) Status Bacteria identified in Specimen by Culture 08/26/2023 15:33:34 [id number]^YEAST NOT CRYPTOCOCCUS Abnormal Final Yeast not Cryptococcus Fungal Smear 08/26/2023 15:33:34 No yeast or hyphae seen. Final Test: Culture Fungus-Other<b r/>Specimen Source: Lung, Left lower lobe
Specimen Type: Bronchoalveolar Lavage (BAL)
Specimen Date: 08/26/2023 3:33 PM
Result Date: 09/16/2023 3:23 PM
Result Status: Final result
Abnormal: Yes
Resulting Lab: [facility]
[address]
[facility] [address]

CULTURE

Yeast not Cryptococcus (Abnormal)

STAIN

No yeast or hyphae seen.

null Performing Location [facility] [place] [address] [place] [id number]
--- OUTSIDE RECORDS SUMMARY | 2023-11-25 09:27 | External Medical Summary | Summary of Care ---
Author Name Unknown Organization [facility] Address [address] [place] [address] Phone [phone] Care Team Providers Care Online Advertising Analyst Name Role Phone Donn Clarke MD Primary Care Provider + Reason for Visit * Reason Onset Date Comments Pre Procedure Assessment 08/23/2023 Encounter Details Date Type Department Care Team (Late st Contact Info) Description 08/23/2023 Telephone Gastroenterology, [place] [address] [place] [address] Md Courtney Galeano MD [address] [place] [address] Pre Procedure Assessment Allergies Active Allergy Reactions Criticality Noted Date Comments Lorazepam Low 07/27/2019 Codeine Nausea/vomiting Low 10/31/2018 Pollen Wheezing,Cough Low 11/30/2016 documented as of this encounter (statuses as of 08/23/2023) Medications Medication Sig Dispensed Refills Start Date [...] coated 81 MG TBECIndications:Coron myra atherosclerosis of [place] coronary artery Take 2 Tabs by mouth [...] EYES 45 mL 3 01/14/2023 4 Active Tamsulosin HCl 0.4 MG Oral Capsule (Flomax)Indications:B PH without obstruction/lower urinary tract symptoms TAKE ONE CAPSULE BY MOUTH AT BEDTIME 90 Capsule 2 12/10/2022 4 Active Verapamil HCl ER 120 MG Oral Tablet Extended Release (Isoptin SR)Indications:[place] ry atherosclerosis of [place] coronary artery,PAF (paroxysmal atrial fibrillation) (HCC),HTN, goal below 140/90 TAKE ONE TABLET BY MOUTH EVERY MORNING 90 Tablet 4 12/02/2022 4 Active Fluticasone-Salmetero l 500-50 MCG/ACT Inhalation Aerosol Powder Breath Activated (Advair Diskus) INHALE ONE PUFF BY MOUTH EVERY MORNING AND ONE PUFF BEFORE BEDTIME 60 Each 12 08/29/2022 4 Active Additional Information Patient taking differently:1 Puff Inhalation BID (.AM/PM),Indications: COPD, Reported on 09/03/2022 Levothyroxine Sodium 137 MCG Oral TabletIndications:Pos toperative hypothyroidism TAKE ONE TABLET BY MOUTH EVERY [...] Nasal Aerosol (Nasacort Allergy 24HR) Administer 1 [place] into each nostril daily as needed. 0 [...] DAY 180 Tablet 3 06/21/2023 4 Active Levothyroxine Sodium 150 MCG Oral Tablet (Levoxyl)Indications: Congenital hypothyroidism without goiter TAKE ONE TABLET BY MOUTH ON TUESDAY, TUESDAY, AND TUESDAY ONLY 36 Tablet 0 06/21/2023 Active Losartan Potassium 100 MG Oral Tablet (Cozaar)Indications:H TN, goal below 140/90 TAKE ONE TABLET BY MOUTH EVERY DAY 100 Tablet 3 07/06/2023 4 Active Ipratropium [place] 0.06 % Nasal Solution (Atrovent) Administer 1 [place] into each nostril at bedtime. 45 mL 3 08/17/2023 Active Hospital, Clinic, or Other Facility Administered Medication Ordered Dose Route Frequency Start Date End Date Status methacholine (0 mg/mL) [place] (Provocholine) inhalation solution 3 mLIndications:Shortness of breath 3 mL IN ONCE PRN 07/14/2022 Active documented as of this encounter (statuses as of 08/23/2023) Active Problems Problem Noted Date Diagnosed Date [...] single drug-eluting stent (3.0 x 15 mm [place]). 3. Successful PCI of ostial to mid [...] L upper back, R deltoid -2011 R scientologist -2012 R temporal scalp -02/2014 BCC L chest -11/2018 BCC R medrano upper HX-MALIG SKIN MELANOMA - 2005 0.56 R post. 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 symp toms 08/03/2002 Chronic rhinitis 08/03/2002 documented as of this encounter (statuses as of 08/23/2023) Resolved Problems Problem Noted Date Diagnosed Date [...] recommend f/u 3 years [employer] Other*[id number] 06/05/2007 08/24/2016 Overview: Study Title: Genomic Markers for Patients with Cardiovascular Disease Project # [id number] Stock Mover: Aretha Rodríguez MD [phone] Coronary atherosclerosis of [place] coronary artery 05/16/2007 07/27/2019 ADVANCE DIRECTIVE INFORMATION [...] as of this encounter (statuses as of 08/23/2023) Immunizations Name Administration Dates Next Due COVID-19 mRNA, LNP-s, No Pre serve, 2-Dose Series ([employer]) 10/21/2021,04/20/2021,09/23/2020,08/25 COVID-19, LNP-s, No Preserve , Justyn-sucrose, [...] encounter Miscellaneous Notes * Telephone Encounter - Julia Arizmendi RN - 08/23/2023 10:28 AM EST Completed anesthesia assessment on patient. Advised patient to arrive one hour prior to scheduled appointment time. General anesthesia reviewed with patient and/or family. Patient verbalized understanding of the information given. I have instructed the patient on which medications to take the day of the procedure, which are inhalers, levothyroxine, verapamil & pepcid with a few sips of water t he morning of the procedure. Patient instructed to not eat or drink after midnight prior to the procedure, except medications and clear liquids until 8:30 AM (examples given). Patient instructed to not smoke or use smokeless tobacco, not to chew any gum or eat any hard candy, not to wear any jewelry, or use lotion the day of the procedure. Patient instructed to bring a cdl truck driver. Patient voiced no other concerns or questions about the instructions provided to them about their procedure. Denies any flu-like symptoms (cough,fever or shortness of breath)or traveling outside the [place] (by plane/cruise ship) in the past 14 days or coming in contact with anyone that has tested positive for the Coronavirus. documented in this encounter Plan of Treatment Upcoming Encounters Date Type Department Care Team (Latest Contact Info) Description 08/26/2023 2:30 PM EST Hospital Encounter [facility]O [facility], Endoscopy Suite, HFAM 1, [address] [place] [address] Md Courtney Galeano MD [address] [facility] [place] [address] 08/26/2023 2:30 PM EST - 08/26/2023 4:00 PM EST Surgery ENDO [facility], Endoscopy Suite, HFAM 1, [address] [place] [address] Md Courtney Galeano MD [address] [facility] [place] [address] BRONCHOSCOPY DIAGNOSTIC WITH OR WITHOUT WASHING 11/25/2023 10:00 AM EDT Office Visit Cardiology, [facility] [address] [place] [address] Jonnathan Song PA-C [address] [place] [address] 12/08/2023 3:30 PM EDT Office Visit Dermatology [facility] [address] [place], [place] [address] Ama Galvez MD [address] [place], [place] [address] 12/09/2023 11:30 AM EDT Office Visit Otolaryngology/Hea d & Neck/Facial Plastic Surgery [address] [place] [address] Francois Mae MD [address] [place] [address] 02/15/2024 10:00 AM EDT Laboratory Laboratory, [facility] 132 [place] [phone] Paulette Hernandez [facility] 132 [place] [address] 02/22/2024 2:30 PM EDT Office Visit Hematology/Oncolog y [facility] [address] [place], [place] [address] Smita Miller MD [address] [place], [place] [address] 02/24/2024 9:20 AM EDT Office Visit General Internal Medicine [facility] [address] [place], [place] [address] Donn Clarke MD [address] [place] [address] 03/26/2024 10:30 AM EDT Nurse Only [facility]illary [facility] [address] David Nurse [facility] [address] Scheduled Procedures Name Priority Associated Diagnoses Date/Ti me BRONCHOSCOPY DIAGNOSTIC WITH OR WITHOUT WASHING Lung disorder 08/26/2023 2:30 PM EST COLONOSCOPY FLEXIBLE PROXIMAL DIAGNOSTIC Recall History of colon polyps Health Maintenance Due Date Last Done Comments DXA Scan 01/27/2023 01/28/2020, 03/13/2008 DTaP,Tdap,and Td Vaccines (2 - Td or Tdap) 08/20/2023 08/20/2013, 10/25/2007 Depression Screening 03/23/2024 03/23/2023, 10/18/19 15 GFR 08/19/2024 08/19/2023, 08/02/2023, 12/02/2022, Additional history exists TSH 08/19/2024 08/19/2023, [...] this encounter Medical Devices Implanted Type Area Highway Maintenance Crew Worker Device Identifier Shelf Expiration Date Model / Serial / Lot Piston Smart .6x4.25 [id number] - [id number] Implanted:Qty : 1 on 06/26/2013 at [place] [facility] Left: Ear GYRUS : ENT 05/17/2022 [id number] / / [id number] Suture Steel 6 B&S19 M654g - [id number] Implanted:Qty : 4 on 07/14/2019 by Genesis Rea MD at [place] [facility] N/A: Sternum JNJ : [employer] 03/17/2024 M654G / / [id number] documented as of this encounter Advance Directives [...] and were consensually agreed upon. Care Teams Online Advertising Analyst Relationship Specialty Start Date End Date Donn Clarke MD 200 [place] [address] PCP - General Internal Medicine 12/17/15 documented as of this encounter
--- OUTSIDE RECORDS SUMMARY | 2023-11-25 09:27 | External Medical Summary ---
Author Name Unknown Address Unknown Organization K01:LAB[facility] [place] - [address] [facility] [address] Laboratory Report Ordering Provider Test Date Status BRYANNA WONG 08/26/2023 15:33:34 Final Observation Date Value Abnormality Reference (Units ) Status Adenovirus DNA [Presence] in Nasopharynx by VIVIANA with non-probe detection 08/26/2023 15:33:34 Negative Negative Final Human coronavirus 229E RNA [Presence] in Nasopharynx by VIVIANA with non-probe detection 08/26/2023 15:33:34 Negative Negative Final Human coronavirus HKU1 RNA [Presence] in Nasopharynx by VIVIANA with non-probe detection 08/26/2023 15:33:34 Negative Negative Final Human coronavirus NL63 RNA [Presence] in Nasopharynx by VIVIANA with non-probe detection 08/26/2023 15:33:34 Negative Negative Final Human coronavirus OC43 RNA [Presence] in Nasopharynx by VIVIANA with non-probe detection 08/26/2023 15:33:34 Negative Negative Final SARS-CoV-2 (COVID-19) RNA [Presence] in Nasopharynx by VIVIANA with non-probe detection 08/26/2023 15:33:34 Negative Negative Final Human metapneumovirus RNA [Presence] in Nasopharynx by VIVIANA with non-probe detection 08/26/2023 15:33:34 Negative Negative Final Rhinovirus+Enterovirus RNA [Presence] in Nasopharynx by VIVIANA with non-probe detection 08/26/2023 15:33:34 Negative Negative Final Influenza virus A RNA [Presence] in Nasopharynx by VIVIANA with non-probe detection 08/26/2023 15:33:34 Negative Negative Final Influenza virus B RNA [Presence] in Nasopharynx by VIVIANA with non-probe detection 08/26/2023 15:33:34 Negative Negative Final Parainfluenza virus 1 RNA [Presence] in Nasopharynx by VIVIANA with non-probe detection 08/26/2023 15:33:34 Negative Negative Final Parainfluenza virus 2 RNA [Presence] in Nasopharynx by VIVIANA with non-probe detection 08/26/2023 15:33:34 Negative Negative Final Parainfluenza virus 3 RNA [Presence] in Nasopharynx by VIVIANA with non-probe detection 08/26/2023 15:33:34 Negative Negative Final Parainfluenza virus 4 RNA [Presence] in Nasopharynx by VIVIANA with non-probe detection 08/26/2023 15:33:34 Negative Negative Final Respiratory syncytial virus RNA [Presence] in Nasopharynx by VIVIANA with non-probe detection 08/26/2023 15:33:34 Negative Negative Final Bordetella pertussis.pertussis toxin promoter region [Presence] in Nasopharynx by VIVIANA with non-probe detection 08/26/2023 15:33:34 Negative Negative Final Chlamydophila pneumoniae DNA [Presence] in Nasopharynx by VIVIANA with non-probe detection 08/26/2023 15:33:34 Negative Negative Final Mycoplasma pneumoniae DNA [Presence] in Nasopharynx by VIVIANA with non-probe detection 08/26/2023 15:33:34 Negative Negative Final Bordetella parapertussis [id number] DNA [Presence] in Nasopharynx by VIVIANA with non-probe detection 08/26/2023 15:33:34 Negative Negative Final
The primers that detect Rhinovirus may cross react with some Enterorviruses. The validation of bronchial specimens, tracheal aspirates, and throats for this assay was developed and performance characteristics determined by [employer]. The validation of alternate specimen types has not been cleared or approved by the U.S. Food and Drug Administration (FDA). It has been determined that such clearance or approval is not necessary. Performing Location [facility] [place] - [address] [facility] [address] [facility] [address]
--- OUTSIDE RECORDS SUMMARY | 2023-11-25 09:27 | External Medical Summary | Summary of Care ---
Author Name Unknown Organization [facility] Address [address] [place] [address] Phone [phone] Care Team Providers Care Kersey Department Supervisor Name Role Phone Donn Clarke MD Primary Care Provider + Reason for Visit * Reason Onset Date Comments Test Results 08/22/2023 Encounter Details Date Type Department Care Team (Late st Contact Info) Description 08/22/2023 Telephone General Internal Medicine [facility] [address] [place] [address] Donn Clarke MD 200 [facility] [place] [address] Test Results Allergies Active Allergy Reactions Criticality Noted Date Comments Lorazepam Low 07/27/2019 Codeine Nausea/vomiting Low 10/31/2018 Pollen Wheezing,Cough Low 11/30/2016 documented as of this encounter (statuses as of 08/22/2023) Medications Medication Sig Dispensed Refills Start Date [...] coated 81 MG TBECIndications:Coron myra atherosclerosis of [place] coronary artery Take 2 Tabs by mouth [...] Extended Release (Isoptin SR)Indications:[place] ry atherosclerosis of [place] coronary artery,PAF (paroxysmal atrial fibrillation) (HCC),HTN, goal [...] Nasal Aerosol (Nasacort Allergy 24HR) Administer 1 [place] into each nostril daily as needed. 0 [...] 100 Tablet 3 07/06/2023 4 Active Ipratropium [place] 0.06 % Nasal Solution (Atrovent) Administer 1 [place] into each nostril at bedtime. 45 mL 3 08/17/2023 Active Hospital, Clinic, or Other Facility Administered Medication Ordered Dose Route Frequency Start Date End Date Status methacholine (0 mg/mL) [place] (Provocholine) inhalation solution 3 mLIndications:Shortness of breath 3 mL IN ONCE PRN 07/14/2022 Active documented as of this encounter (statuses as of 08/22/2023) Active Problems Problem Noted Date Diagnosed Date [...] L upper back, R deltoid -2011 R advent -2012 R temporal scalp -02/2014 BCC L chest -11/2018 BCC R medrano upper HX-MALIG SKIN MELANOMA - 2005 0.56 R post. 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, Hx melanoma in 2005, 0.56 mm on the Right neck; also hx MIS right midback 02/2014; L lower eyelid MIS 02/2018 Coronary atherosclerosis of [place] coronary estella ry 05/16/2007 BPH without obstruction/lower urinary tract symp toms 08/03/2002 Chronic rhinitis 08/03/2002 documented as of this encounter (statuses as of 08/22/2023) Resolved Problems Problem Noted Date Diagnosed Date Resolved Date Age-related osteoporosis wit hout current pathological fracture 10/03/2019 10/20/2021 Urinary retention 07/22/2019 10/20/2021 Postoperative anemia due to acute blood loss 9 10/03/2019 Unstable angina 07/13/2019 07/27/2019 Acquired hypothyroidism 05/05/2018 04/0 11/2021 Hypothyroid 04/18/2014 05/05/2018 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 12/01/2017 Mixed hearing loss, unspecified 10/12/2012 12/01/2017 Pancreatic duct dilated 07/26/201208/2023 Iatrogenic pulmonary embolism and infarction 1 06/02/2017 [...] recommend f/u 3 years [employer] Other*[id number] 06/05/2007 08/24/2016 Overview: Study Title: [employer] Markers for Patients with Cardiovascular Disease Project # [id number] Medical Laboratory Specialist: Aretha Rodríguez MD [phone] Coronary atherosclerosis of [place] coronary artery 05/16/2007 07/27/2019 ADVANCE DIRECTIVE INFORMATION [...] as of this encounter (statuses as of 08/22/2023) Immunizations Name Administration Dates Next Due COVID-19 mRNA, LNP-s, No Pre serve, 2-Dose Series (Songtradr) 10/21/2021,04/20/2021,09/23/2020,08/25 COVID-19, LNP-s, No Preserve , Justyn-sucrose, [...] encounter Miscellaneous Notes * Telephone Encounter - Mell Palafox LPN - 08/22/2023 2:42 PM EST Patient notified of message below. Verbalized understanding. * Telephone Encounter - Mell Palafox LPN - 08/22/2023 2:39 PM EST ----- Message from Donn Clarke MD sent at 08/21/2023 2:47 PM EST ----- TSH too low, need to cut back thyroid dose. Would cut levothyroxine to 150 mcg m/f only 137 mcg on all other days, please update chart once he is aware. Recheck tsh 4 weeks to follow Lipids, kidney, liver, sugar fine documented in this encounter Plan of Treatment Upcoming Encounters Date Type Department Care Team (Latest Contact Info) Description 08/26/2023 2:30 PM EST Hospital Encounter ENDO [facility], Endoscopy Suite, HFAM 1, [address] [place] [address] Md Courtney Galeano MD [address] [place] [address] 08/26/2023 2:30 PM EST - 08/26/2023 4:00 PM EST Surgery ENDO [facility], Endoscopy Suite, HFAM 1, [address] [place] [address] Md Courtney Galeano MD [address] [place] [address] BRONCHOSCOPY DIAGNOSTIC WITH OR WITHOUT WASHING 11/25/2023 10:00 AM EDT Office Visit Cardiology, [facility] [address] [place] [address] Jonnathan Song PA-C [address] [place] [address] 12/08/2023 3:30 PM EDT Office Visit Dermatology [facility] [address] [facility] [place] [address] Ama Galvez MD [address] [facility] [place] [id number] 12/09/2023 11:30 AM EDT Office Visit Otolaryngology/Hea d & Neck/Facial Plastic Surgery [address] [place] [address] Francois Mae MD [address] [place] [address] 02/15/2024 10:00 AM EDT Laboratory Laboratory, [facility] [phone] HernandezPaulette enamorado [facility] [address] [facility] [address] 02/22/2024 2:30 PM EDT Office Visit Hematology/Oncolog y [facility] [address] [place] [address] Smita Miller MD [address] [place] [address] 02/24/2024 9:20 AM EDT Office Visit General Internal Medicine [facility] [address] [place] [address] Donn Clarke MD [address] [place] [address] 03/26/2024 10:30 AM EDT Nurse Only Ancillary [facility] [address] [facility] [place] [address] Hernandez, Nurse Annual Wellness [facility] [address] [facility] [place] [address] Scheduled Procedures Name Priority Associated Diagnoses Date/Ti [...] this encounter Medical Devices Implanted Type Area Bag Turner Device Identifier Shelf Expiration Date Model / Serial / Lot Jenna Smart .6x4.25 [id number] - [id number] Implanted:Qty : 1 on 06/26/2013 at OR [facility] Left: Ear GYRUS : ENT 05/17/2022 [id number] / / [id number] Suture Steel 6 B&S19 M654g - [id number] Implanted:Qty : 4 on 07/14/2019 by Genesis Rea MD at OR [facility] N/A: Sternum JNJ : [employer] 03/17/2024 [id number] / / [id number] documented as of this encounter Advance Directives [...] and were consensually agreed upon. Care Teams Kersey Department Supervisor Relationship Specialty Start Date End Date Donn Clarke MD [address] [place] [address] PCP - General Internal Medicine 12/17/15 documented as of this encounter
--- OUTSIDE RECORDS SUMMARY | 2023-11-25 09:27 | External Medical Summary | Summary of Care ---
Author Name Unknown Organization [facility] Address [address] [place] [address] Phone [phone] Care Team Providers Care Managed Services Consultant Name Role Phone Donn Clarke MD Primary Care Provider + Encounter Details Date Type Department Care Team (Late st Contact Info) Description 08/23/2023 Orders Only PATIENT PORTAL DO NOT DELETE THIS DEPT USED [place] [id number] Allergies Active Allergy Reactions Criticality Noted Date [...] coated 81 MG TBECIndications:Coron myra atherosclerosis of [place] coronary artery Take 2 Tabs by mouth [...] Extended Release (Isoptin SR)Indications:[place] ry atherosclerosis of [place] coronary artery,PAF (paroxysmal atrial fibrillation) (HCC),HTN, goal [...] Nasal Aerosol (Nasacort Allergy 24HR) Administer 1 [place] into each nostril daily as needed. 0 [...] 100 Tablet 3 07/06/2023 4 Active Ipratropium [place] 0.06 % Nasal Solution (Atrovent) Administer 1 [place] into each nostril at bedtime. 45 mL [...] (3.0 x 34, 2.5 x 12 mm [place]). History of prostate cancer 12/01/2017 History of pulmonary embolism 06/02/2017 Hx of actinic keratosis 09/03/2016 Beta-blockers contraindicated 10/17/2014 Overview: HR controlled Asthma, moderate persistent 02/10/2011 HTN, goal below 140/90 01/21/2010 HX-SKIN MALIGNANCY NEC - multiple BCC 09/29/2009 Overview: BCCs: -2005 L neck -2006 L ala, R flank, L cheek, midback -2007 L upper back, R deltoid -2011 R druze -2012 R temporal scalp -02/2014 BCC L chest -11/2018 BCC R medrano upper HX-MALIG SKIN MELANOMA - 2005 0.56 R post. 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, Hx melanoma in 2006, 0.56 mm on the Right neck; also hx MIS right midback 02/2014; L lower eyelid MIS 02/2018 Coronary atherosclerosis of [place] coronary estella ry 05/16/2007 BPH without obstruction/lower [...] recommend f/u 3 years [employer] Other*[id number] 06/05/2007 08/24/2016 Overview: Study Title: [employer] Markers for Patients with Cardiovascular Disease Project # [id number] [employer] Battalion Chief: Aretha Rodríguez MD [phone] Coronary atherosclerosis of [place] coronary artery 05/16/2007 07/27/2019 ADVANCE DIRECTIVE INFORMATION [...] mRNA, LNP-s, No Pre serve, 2-Dose Series (Playcez) 10/21/2021,04/20/2021,09/23/2020,08/25 COVID-19, LNP-s, No Preserve , Justyn-sucrose, Ages 12+ (Pfizer) 10/21/2021 COVID-19, MRNA-LNP, 23-24, P F, 30 MCG/0.3 mL, 12 YRS AND ABOVE, IM [facility] 04/12/2023 Covid-19, Mrna, Lnp-s, Pf, B ivalent, 30 Mcg, IM, 12 yrs and above (Playcez) 04/07/2022 Pneumococcal Conjugate Vacc, 13 Valent (Prevnar) [...] 08/26/2023 2:30 PM EST Hospital Encounter ENDO [facility], Endoscopy Suite, HFAM 1, [address] [place] [address] Md Courtney [facility]aleano MD [address] [facility] [address] 08/26/2023 2:30 PM EST - 08/26/2023 4:00 PM EST Surgery ENDO [facility], Endoscopy Suite, HFAM 1, [address] [place] [address] Md Courtney Galeano MD [address] [place] [address] BRONCHOSCOPY DIAGNOSTIC WITH OR WITHOUT WASHING 11/25/2023 10:00 AM EDT Office Visit Cardiology, [facility] [address] [place] [address] Jonnathan Song PA-C [address] [place] [address] 12/08/2023 3:30 PM EDT Office Visit Dermatology [facility] [address] [place] [address] Ama Galvez MD [address] [place] [address] 12/09/2023 11:30 AM EDT Office Visit Otolaryngology/Hea d & Neck/Facial Plastic Surgery [address] [place] [address] Francois Mae MD [address] [place] [address] 02/15/2024 10:00 AM EDT Laboratory Laboratory, [facility] [address] [place] [phone] HernandezPaulette enamorado [facility] [address] [place] [address] 02/22/2024 2:30 PM EDT Office Visit Hematology/Oncolog y [facility] [address] [place] [address] Smita Miller MD [address] [place] [address] 02/24/2024 9:20 AM EDT Office Visit General Internal Medicine [facility] [address] [facility] [place] [address] Donn Clarke MD [address] [facility] [place] [address] 03/26/2024 10:30 AM EDT Nurse Only Ancillary [facility] 132 [facility] [place] [address] [facility], Nurse Annual Wellness [facility] [address] [facility] [place] [address] Scheduled Procedures Name Priority Associated Diagnoses Date/Ti [...] this encounter Medical Devices Implanted Type Area Guidance Director Device Identifier Shelf Expiration Date Model / Serial / Lot Jenna Smart .6x4.25 [id number] - [id number] Implanted:Qty : 1 on 06/26/2013 at [place] [facility] [place] Left: Ear GYRUS : ENT 05/17/2022 [id number] / / [id number] Suture Steel 6 B&S19 M654g - [id number] Implanted:Qty : 4 on 07/14/2019 by Genesis Rea MD at [place] [facility] [place] N/A: Sternum JNJ : [employer] 03/17/2024 [id number] / / [id number] documented as of this encounter Advance Directives [...] and were consensually agreed upon. Care Teams Managed Services Consultant Relationship Specialty Start Date End Date Donn Clarke MD [address] [place] [address] PCP - General Internal Medicine 12/17/15 documented as of this encounter
--- OUTSIDE RECORDS SUMMARY | 2023-11-25 09:27 | External Medical Summary ---
Author Name Unknown Address Unknown Organization : Laboratory Report Ordering Provider Test Date Status BRYANNA WONG 08/26/2023 15:04:00 Final Observation Date Value Abnormality Reference (Units ) Status REFERENCE LAB SCANNED REPORT 08/26/2023 15:04:00 See Scanned Report Final Performing Location
--- OUTSIDE RECORDS SUMMARY | 2023-11-25 09:28 | External Medical Summary | Summary of Care ---
Author Name Unknown Organization [facility] Address [address] [place] [address] Phone [phone] Care Team Providers Care Public Health Dietitian Name Role Phone Donn Clarke MD Primary Care Provider + Reason for Visit * Reason Comments Follow Up 6 month return. Georgiana ent denied any new concerns, would like to discuss RSV shot Encounter Details Date Type Department Care Team (Latest Contact Info) Description 08/19/2023 9:40 AM EST Office Visit General Internal Medicine [facility] [address] [place] [address] Donn Clarke MD [address] [place] [address] HTN, goal below 140/90*; Bronchiectasis with acute [...] as of this encounter (statuses as of 08/21/2023) Medications Medication Sig Dispensed Refills Start Date [...] coated 81 MG TBECIndications:Coron myra atherosclerosis of [place] coronary artery Take 2 Tabs by mouth [...] Extended Release (Isoptin SR)Indications:[place] ry atherosclerosis of [place] coronary artery,PAF (paroxysmal atrial fibrillation) (HCC),HTN, goal [...] Nasal Aerosol (Nasacort Allergy 24HR) Administer 1 [place] into each nostril daily as needed. 0 [...] 100 Tablet 3 07/06/2023 4 Active Ipratropium [place] 0.06 % Nasal Solution (Atrovent) Administer 1 [place] into each nostril at bedtime. 45 mL 3 08/17/2023 Active Hospital, Clinic, or Other Facility Administered Medication Ordered Dose Route Frequency Start Date End Date Status methacholine (0 mg/mL) [place] (Provocholine) inhalation solution 3 mLIndications:Shortness of breath 3 mL IN ONCE PRN 07/14/2022 Active documented as of this encounter (statuses as of 08/21/2023) Active Problems Problem Noted Date Diagnosed Date [...] single drug-eluting stent (3.0 x 15 mm [place]). 3. Successful PCI of ostial to mid LAD with 2 overlapping drug-eluting stents (3.0 x 34, 2.5 x 12 mm [place]). History of prostate cancer 12/01/2017 History of pulmonary embolism 06/02/2017 Hx of actinic keratosis 09/03/2016 Beta-blockers contraindicated 10/17/2014 Overview: HR controlled Asthma, moderate persistent 02/10/2011 HTN, goal below 140/90 01/21/2010 HX-SKIN MALIGNANCY NEC - multiple BCC 09/29/2009 Overview: BCCs: -2005 L neck -2006 L ala, R flank, L cheek, midback -2007 L upper back, R deltoid -2011 R shinto -2012 R temporal scalp -02/2014 BCC L chest -11/2018 BCC R medrano upper HX-MALIG SKIN MELANOMA - 2005 0.56 R post. 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, Hx melanoma in 2005, 0.56 mm on the Right neck; also hx MIS right midback 02/2014; L lower eyelid MIS 02/2018 Coronary atherosclerosis of [place] coronary estella ry 05/16/2007 BPH without obstruction/lower urinary tract symp toms 08/03/2002 Chronic rhinitis 08/03/2002 documented as of this encounter (statuses as of 08/21/2023) Resolved Problems Problem Noted Date Diagnosed Date [...] recommend f/u 3 years [employer] Other*[id number] 06/05/2007 08/24/2016 Overview: Study Title: Genomic Markers for Patients with Cardiovascular Disease Project # [id number] Design Studio Consultant: Aretha Rodríguez MD [phone] Coronary atherosclerosis of [place] coronary artery 05/16/2007 07/27/2019 ADVANCE DIRECTIVE INFORMATION [...] as of this encounter (statuses as of 08/21/2023) Immunizations Name Administration Dates Next Due COVID-19 mRNA, LNP-s, No Pre serve, 2-Dose Series (UUCUN) 10/21/2021,04/20/2021,09/23/2020,02/2021 COVID-19, LNP-s, No Preserve , Justyn-sucrose, Ages 12+ (Pfizer) 10/21/2021 COVID-19, MRNA-LNP, 23-24, P F, 30 MCG/0.3 mL, 12 YRS AND ABOVE, IM ([facility]) 04/12/2023 Covid-19, Mrna, Lnp-s, Pf, B ivalent, [...] CABG x 2 Z95.1 Coronary atherosclerosis of [place] coronary artery I25.10 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 Ipratropium-Albuterol [...] MOUTH EVERY DAY 100 Tablet 3 Ipratropium [place] 0.06 % Nasal Solution (Atrovent) Administer 1 [place] into each nostril at bedtime. 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 dr floyd [place](benign) erectile dysfunction 08/30/2002 History of prostate cancer [...] SURGERY, W/O PUMP 07/12/2019 CABG X 2 ARTHOZAKI,W/ROTATOR CUFF 10/2001 right shoulder BIOPSY OF EYELID Left 04/07/2020 Dr. Ashraf CABG, ARTERIAL, SINGLE N/A 07/14/2019 CORONARY ARTERY BYPASS GRAFT USING ARTERY 1 GRAFT performed by Genesis Rea MD at [facility] CATARACT SURGERY,COMPLEX Bilateral 06/2019 COLONOSCOPY 11/15/2011 adenomatous polyp--repeat 5 years COLONOSCOPY W/ BLEEDING CONTROL 08/18/2007 adenomatous polyps--repeat in 1 year COLONOSCOPY W/ LESION REMOVAL, SNARE 08/22/2008 hyperplastic polyps & lympoid aggregate, recommend f/u 3 years COLONOSCOPY, DIAGNOSTIC (RECTUM) 11/03/2016 TVA polyps, diverticulosis, repeat 3 yrs/COLONOSCOPY FLEXIBLE PROXIMAL DIAGNOSTIC performed by Robyn Heller DO at ENDOSCOPY [facility] COLONOSCOPY, DIAGNOSTIC (RECTUM) 08/11/2020 adenomatous polyps, repeat 5 yrs / COLONOSCOPY FLEXIBLE PROXIMAL DIAGNOSTIC performed by Robyn Heller DO at [facility]COPY [facility] CYSTOSCOPY 03/31/2010 DESTROY EYELID MARGIN LESION 03/2018 Dr Ruiz EGD, W/ENDOSCOPIC US 04/13/2011 UPPER GI ENDOSCOPY ENDOSCOPIC ULTRASOUND performed by JEFFRY HINES at [facility]OSCOPY [facility] EGD, W/ENDOSCOPIC US 08/02/2012 UPPER GI ENDOSCOPY ENDOSCOPIC ULTRASOUND performed by Robyn Heller DO at OR [facility] EGD, W/ENDOSCOPIC US 06/03/2014 liver cyst, CBD dilation, ESOPHAGOGASTRODUODENOSCOPY (EGD), FLEXIBLE, TRANSORAL, ENDOSCOPIC ULTRASOUND performed by Robyn Heller DO at END[facility]COPY [facility] ERCP 12/07/2020 choledocholithiasis, stent placed, repeat 4 wks / [facility] ERCP 01/30/2021 Choledocholithiasis, stent removed / [facility] INFORMATION thyroid removed INFORMATION 04/04/2006 Appendectomy INFORMATION Left 2012 Smart Stapes Piston Ear Implant- Mri Safe INTERSTITIAL RADIATION APPLICATION, COMPLEX 08/25/2006 Performed by FADUMO YATES at [facility] Log [id number] LAPAROSCOPY; CHOLECYSTECTOMY 12/09/2020 MISCELLANEOUS ORDER ([facility] ONLY) Left 03/08/2018 Take Down of Asael's Flap - Dr. Pascale GARCIA, 1ST STAGE; FACE, HANDS, FEET, NERVE Left 02/15/2018 Dr. Ashraf-left lower lid MOH's repair NASAL/SINUS ENDOSCOPY, SURGICAL ?1989 Dr Santillan at [facility] NASAL/SINUS ENDOSCOPY, SURGICAL 09/2002 Dt Stetz NEEDLE/CATHETER PLACEMENT, PROSTATE 08/25/2006 Performed by FADUMO YATES at [facility] Log [id number] REMOVAL OF APPENDIX 2005 REPAIR ARM TENDON/MUSCLE 2000 REVISION OF MIDDLE EAR BONE 06/26/2013 STAPEDECTOMY REESTABLISH OSSICULAR CONTINUITY performed by Jose Morrison MD at [facility] ULTRASONIC GUIDE, INTERSTITIAL RADIOELEMENT 08/25/2006 Performed by FADUMO YATES at [facility] Log [id number] UMBIL HERNIA REPAIR (REDUCIBLE) AGE 5+YR 11/2020 Dr. leiva US ENDOSCOPIC 01/30/2021 kidney cyst / [facility] US TRANSRECTAL (GEN SURG) 12/2005 [...] - 08/21/2023 2:47 PM ESTAddended by: DONN CLARKE on: 08/21/2023 02:47 PM Modules accepted: Orders documented in this encounter Plan of Treatment Upcoming Encounters Date Type Department Care Team (Latest Contact Info) Description 08/22/2023 12:45 PM EST Imaging Radiology [facility]st [facility] [address] [facility] [place] [address] 08/26/2023 2:30 PM EST Hospital Encounter ENDO [facility], Endoscopy Suite, [facility] 1, [address] [place] [address] Md Courtney Galeano MD [address] [place] [address] 08/26/2023 2:30 PM EST - 08/26/2023 4:00 PM EST Surgery ENDO [facility] Endoscopy [address], [facility] [address], [address] [facility] [place] [address] Md Courtney Galeano MD [address] [place] [address] BRONCHOSCOPY DIAGNOSTIC WITH OR WITHOUT WASHING 11/25/2023 10:00 AM EDT Office Visit Cardiology, [facility] [address] [facility] [place] [address] Jonnathan Song PA-C [address] [facility] [place] [address] 12/08/2023 3:30 PM EDT Office Visit Dermatology [facility] 200 [facility] [place] [address] Ama Galvez MD [address] [place] [address] 12/09/2023 11:30 AM EDT Office Visit Otolaryngology/Hea d & Neck/Facial Plastic Surgery [address] [place] [place] [address] Francois Mae MD [address] [place] [facility] [place] [address] 02/15/2024 10:00 AM EDT Laboratory Laboratory, [facility] [address] [facility] [place] [id number] HernandezPaulette enamorado [facility] [address] 02/22/2024 2:30 PM EDT Office Visit Hematology/Oncolog y [facility] [address] [place] [address] Smita Miller MD 200 [facility] [place] [address] 02/24/2024 9:20 AM EDT Office Visit General Internal Medicine [facility] [address] [facility] [place] [address] Donn Clarke MD [address] [facility] [place] [address] 03/26/2024 10:30 AM EDT Nurse Only Ancillary [facility] [address] [facility] [place] [address] [facility], Nurse Annual Wellness [facility] [address] [facility] [place] [address] Scheduled Orders Name Type Priority Associated Diagnoses Orde r Schedule TSH Lab Routine Postoperative hypothyroidism Expected: 09/19/2023 (Approximate), Expires: 08/21/2024 Scheduled Procedures Name Priority Associated Diagnoses Date/Ti [...] this encounter Medical Devices Implanted Type Area Crystal Flat Grinder Device Identifier Shelf Expiration Date Model / Serial / Lot Jenna Smart .6x4.25 [id number] - [id number] Implanted:Qty : 1 on 06/26/2013 at OR [facility] Left: Ear GYRUS : ENT 05/17/2022 [id number] / / [id number] Suture Steel 6 B&S19 [id number] - [id number] Implanted:Qty : 4 on 07/14/2019 by Genesis Rea MD at OR [facility] N/A: Sternum JNJ : [employer] 03/17/2024 [id number] / / [id number] documented as of this encounter Results * (ABNORMAL) TSH (08/19/2023 10:18 AM EST) TSH 0.06(L) 0.27 - 4.20 uIU/mL 08/19/2023 9:56 PM EST LAB[facility]ORY [facility] Blood Venous blood specimen / Unknown Venipuncture / Unknown 08/19/2023 10:18 AM EST 08/19/2023 10:18 AM EST Donn Clarke MD LAB BLOOD ORDERA BLES LABOR[facility]ORY [facility] [address] [place] [address] * LIPID PANEL WITH DIRECT LDL IF TG IS HIGH (08/19/2023 10:18 AM EST) Pathologist [facility] Triglycerides 90 <=174 mg/dL 08/19/2023 9:23 PM EST LAB[facility]ORY [facility] Comment: Triglyceride Reference Ranges (mg/dL): <150 Acceptable 150-174 Borderline high 175-499 High >=500 Very high Cholesterol 137 <200 mg/dL 08/19/2023 9:23 PM EST LAB[facility]ORY [facility] Comment: Total Cholesterol Reference Ranges (mg/dL): <200 Desirable 200-239 Borderline high >=240 High HDL Cholesterol 55 >39 mg/dL 9:23 PM EST LAB[facility]ATORY [facility] Comment: HDL Cholesterol Reference Ranges (mg/dL): >=60 High (Desirable) <50 Low (Undesirable) For Females <40 Low (Undesirable) For Males Non-HDL Cholesterol 82 <=159 mg/dL 08/19/2023 9:23 PM EST LAB[facility]ORY [facility] Comment: Non-HDL Cholesterol Reference Range (mg/dL): <100 Target level for high risk ASCVD patient <130 Optimal for general population 130-159 Near optimal for general population 160-189 Borderline High 190-219 High >=220 Very High LDL Cholesterol 64 <=129 mg/dL 08/19/2023 9:23 PM EST LAB[facility]ORY [facility] Comment: LDL Cholesterol Reference Ranges (mg/dL): <70 Target level for high risk ASCVD patient <100 Optimal for general population 100-129 Near optimal for general population 130-159 Borderline high 160-189 High >=190 Very high Blood Venous blood specimen / Unknown Venipuncture / Unknown 08/19/2023 10:18 AM EST 08/19/2023 10:18 AM EST Donn Clarke MD LAB BLOOD ORDERA BLES [facility] [address] [place] [address] * COMPREHENSIVE METABOLIC PANEL (08/19/2023 10:18 AM EST) BUN 17 6 - 20 mg/dL 08/19/2023 11:20 AM [facility] 56 Creatinine 1.2 0.6 - 1.2 mg/dL 08/19/2023 11:20 AM [facility] 56- Estimated Glomerular Filtration Rate 64 >=60 mL/min 08/19/2023 11:20 AM [facility] 56- Comment:eGFR is calculated b ased on the CKD-EPI 2020 equation Sodium 139 135 - 146 mmol/L 08/19/2023 11:20 AM [facility] 56- Potassium 4.3 3.5 - 5.1 mmol/L 08/19/2023 11:20 AM [facility] 56- Chloride 104 98 - 107 mmol/L 08/19/2023 11:20 AM [facility] 56- CO2 23 22 - 32 mmol/L 08/19/2023 11:20 AM [facility] 56- Anion Gap 12 7 - 15 mmol/L 08/19/2023 11:20 AM [facility] 56- Glucose 90 70 - 120 mg/dL 08/19/2023 11:20 AM [facility] 56- Albumin 4.0 3.8 - 5.0 g/dL 08/19/2023 11:20 AM [facility] 56- AST 16 10 - 50 U/L 08/19/2023 11:20 AM [facility] 56- Alkaline Phosphatase 108 35 - 130 U/L 08/19/2023 11:20 AM [facility] 56- Bilirubin, Total 0.8 <=1.2 mg/dL 08/19/2023 11:20 AM EST [facility] 56- Calcium 9.7 8.4 - 10.2 mg/dL 08/19/2023 11:20 AM [facility] 56- Protein 6.2 6.0 - 8.3 g/dL 08/19/2023 11:[address] ALT 17 10 - 50 U/L 08/19/2023 11:20 AM [facility] 56 Blood Venous blood specimen / Unknown Venipuncture / Unknown 08/19/2023 10:18 AM EST 08/19/2023 10:18 AM EST Donn Clarke MD LAB BLOOD ORDERA BLES [place] [address] [place] [address] documented in this encounter Visit Diagnoses Diagnosis [...] hyperlipidemia Moderate persistent asthma with acute exacerbation Lung disorder Other diseases of lung, not elsewhere classified documented in this encounter Advance Directives Latest [...] and were consensually agreed upon. Care Teams Public Health Dietitian Relationship Specialty Start Date End Date Donn Clarke MD [address] [facility], [place] [address] PCP - General Internal Medicine 12/17/15 documented as of this encounter
--- OUTSIDE RECORDS SUMMARY | 2023-11-25 09:28 | External Medical Summary ---
Author Name Unknown Address Unknown Organization [id number]:LABORATORY [facility] - [address] [facility] [address] Laboratory Report Ordering Provider Test Date Status DO CATHLEENTANIA 08/19/2023 10:18:34 Final Observation Date Value Abnormality Reference (Units ) Status Triglyceride 08/19/2023 10:18:34 90 <=174 ( mg/dL) Final Triglyceride Reference Range s (mg/dL):
<150 Acceptable
150-174 Borderline high
175-499 High
>=500 Very high Cholesterol 08/19/2023 10:18:34 137 <200 (mg /dL) Final Total Cholesterol Reference Ranges (mg/dL):
<200 Desirable
200-239 Borderline high
>=240 High HDL 08/19/2023 10:18:34 55 >39 (mg/dL ) Final HDL Cholesterol Reference Ra nges (mg/dL):
>=60 High (Desirable)
<50 Low (Undesirable) For Females
<40 Low (Undesirable) For Males NON-HDL CHOLESTEROL 08/19/2023 10:18:34 82 <=159 (mg/dL) Final Non-HDL Cholesterol Referenc e Range (mg/dL):
<100 Target level for high risk ASCVD patient
<130 Optimal for general population
130-159 Near optimal for general population
160-189 Borderline High
190-219 High
>=220 Very High LDL, (calculated) 08/19/2023 10:18:34 64 <= 129 (mg/dL) Final LDL Cholesterol Reference Ra nges (mg/dL):
<70 Target level for high risk ASCVD patient
<100 Optimal for general population
100-129 Near optimal for general population
130-159 Borderline high
160-189 High
>=190 Very high Performing Location LABORATORY [facility] - [address] [facility] [address]
--- OUTSIDE RECORDS SUMMARY | 2023-11-25 09:28 | External Medical Summary ---
Author Name Unknown Address Unknown Organization [id number]:LABORATORY [facility] - [address] [place] [address] Laboratory Report Ordering Provider Test Date Status JOSE CONNOLLY 08/19/2023 10:18:34 Final Observation Date Value Abnormality Reference (Units ) Status TSH 08/19/2023 10:18:34 0.06 Below low normal 0.2 7-4.20 (uIU/mL) Final Performing Location LABORATORY [facility] - [address] [place] [address]
--- OUTSIDE RECORDS SUMMARY | 2023-11-25 09:28 | External Medical Summary | Summary of Care ---
Author Name Unknown Organization [facility] Address [address] [place] [address] Phone [phone] Care Team Providers Care Licensed Occupational Therapist Name Role Phone Donn Clarke MD Primary Care Provider + Reason for Visit * Reason Onset Date Comments Appointment 08/17/2023 Encounter Details Date Type Department Care Team (Late st Contact Info) Description 08/17/2023 Telephone Pulmonary Medicine, [place] [address] [place] [address] Camila Gasca MD [address] [place] [address] Appointment Allergies Active Allergy Reactions Criticality Noted Date Comments Lorazepam Low 07/27/2019 Codeine Nausea/vomiting Low 10/31/2018 Pollen Wheezing,Cough Low 11/30/2016 documented as of this encounter (statuses as of 08/17/2023) Medications Medication Sig Dispensed Refills Start Date [...] coated 81 MG TBECIndications:Coron myra atherosclerosis of [place] coronary artery Take 2 Tabs by mouth [...] Extended Release (Isoptin SR)Indications:[place] ry atherosclerosis of [place] coronary artery,PAF (paroxysmal atrial fibrillation) (HCC),HTN, goal [...] Nasal Aerosol (Nasacort Allergy 24HR) Administer 1 [place] into each nostril daily as needed. 0 [...] 100 Tablet 3 07/06/2023 4 Active Ipratropium [place] 0.06 % Nasal Solution (Atrovent) Administer 1 [place] into each nostril at bedtime. 45 mL 3 08/17/2023 Active Hospital, Clinic, or Other Facility Administered Medication Ordered Dose Route Frequency Start Date End Date Status methacholine (0 mg/mL) [place] (Provocholine) inhalation solution 3 mLIndications:Shortness of breath 3 mL IN ONCE PRN 07/14/2022 Active documented as of this encounter (statuses as of 08/17/2023) Active Problems Problem Noted Date Diagnosed Date Bronchiectasis without complication 01/12/2023 History of osteoporosis [...] (3.0 x 34, 2.5 x 12 mm [place]). History of prostate cancer 12/01/2017 History of pulmonary embolism 06/02/2017 Hx of actinic keratosis 09/03/2016 Beta-blockers contraindicated 10/17/2014 Overview: HR controlled Pancreatic duct dilated 07/26/2012 Asthma, moderate persistent 02/10/2011 HTN, goal below 140/90 01/21/2010 HX-SKIN MALIGNANCY NEC - multiple BCC 09/29/2009 Overview: BCCs: -2005 L neck -2006 L ala, R flank, L cheek, midback -2007 L upper back, R deltoid -2011 R episcopalian -2012 R temporal scalp -02/2014 BCC L chest -11/2018 BCC R medrano upper HX-MALIG SKIN MELANOMA - 2005 0.56 R post. 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, Hx melanoma in 2005, 0.56 mm on the Right neck; also hx MIS right midback 02/2014; L lower eyelid MIS 02/2018 Coronary atherosclerosis of [place] coronary estella ry 05/16/2007 BPH without obstruction/lower urinary tract symp toms 08/03/2002 Chronic rhinitis 08/03/2002 documented as of this encounter (statuses as of 08/17/2023) Resolved Problems Problem Noted Date Diagnosed Date Resolved Date Age-related osteoporosis wit hout current pathological fracture 10/03/2019 10/20/2021 Urinary retention 07/22/2019 10/20/2021 Postoperative anemia due to acute blood loss 9 10/03/2019 Unstable angina 07/13/2019 07/27/2019 Acquired hypothyroidism 05/05/2018 04/0 11/2021 Hypothyroid 04/18/2014 05/05/2018 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 12/01/2017 Mixed hearing loss, unspecified 10/12/2012 12/01/2017 Iatrogenic pulmonary embolism and infarction 1 06/02/2017 [...] recommend f/u 3 years [employer] Other*[id number] 06/05/2007 08/24/2016 Overview: Study Title: Genomic Markers for Patients with Cardiovascular Disease Project # [id number] Underwriting Clerk: Aretha Rodríguez MD [phone] Coronary atherosclerosis of [place] coronary artery 05/16/2007 07/27/2019 ADVANCE DIRECTIVE INFORMATION [...] as of this encounter (statuses as of 08/17/2023) Immunizations Name Administration Dates Next Due COVID-19 mRNA, LNP-s, No Pre serve, 2-Dose Series ([employer]) 10/21/2021,04/20/2021,09/23/2020,02/2021 COVID-19, LNP-s, No Preserve , Justyn-sucrose, Ages 12+ ([employer]) 10/21/2021 COVID-19, MRNA-LNP, 23-24, P F, 30 MCG/0.3 mL, 12 YRS AND ABOVE, IM ([employer]-Comirnaty) 04/12/2023 Covid-19, Mrna, Lnp-s, Pf, B ivalent, 30 Mcg, IM, 12 yrs and above ([employer]) 04/07/2022 Pneumococcal Conjugate Vacc, 13 Valent (Prevnar) 10/17/2014 Pneumococcal Polysaccharide PPV23 (Pneumovax) 07/30/2011,09/04/2004 Season Influenza, Quad, PF, Adjuvanted, 65+ Yrs, IM (FLUAD) 04/01/2020 Seasonal Influenza Virus Vac cine, Unspecified Formulation 04/01/2020,03/27/2019,03/31/2018,090 12/2016,04/01/2016,04/02/2015,03/26/20 14,04/17/2013,04/13/2012,04/20/2011,1 ,05/06/2009,05/28/2008,04/12,04/26/2006,05/30/2003, 2 Seasonal Influenza, PF, 6 [...] encounter Miscellaneous Notes * Telephone Encounter - Aurelio Monteiro, SPENSER - 08/17/2023 2:43 PM EST Patient has been scheduled for a BAL @ [facility] on 08/26/2023 at 2:30PM. Instructions given to and reviewed with the patient. 1. Nothing to eat or drink after midnight before the test. 2. Arrive 1 hour prior to the procedure. 3. Report to the Endoscopy Suite via the HFAM entrance. 4. Patient will be under general anesthesia and will need a feedmobile driver. Blood thinners? No Reviewed that an Endo pre-assessment nurse will reach out to the patient prior to the procedure to go over additional details. Patient states understanding and has no questions. Pt was advised that if they have any questions, they are encouraged to call the clinic, #[phone]. CT scheduled for 08/22. documented in this encounter Plan of Treatment Upcoming Encounters Date Type Department Care Team (Latest Contact Info) Description 08/19/2023 9:40 AM EST Office Visit General Internal Medicine [facility] [address] [facility] [place] [address] Donn Clarke MD [address] [place] [address] 08/22/2023 12:45 PM EST Imaging Radiology [address] [place] [address] 08/26/2023 2:30 PM EST Hospital Encounter ENDO [facility], Endoscopy Suite, HFAM 1, [address] [place] [address] Md Courtney Galeano MD [address] [place] [address] 08/26/2023 2:30 PM EST - 08/26/2023 4:00 PM EST Surgery ENDO [facility], Endoscopy Suite, HFAM 1, [address] [place] [address] Md Courtney Galeano MD [address] [place] [address] BRONCHOSCOPY DIAGNOSTIC WITH OR WITHOUT WASHING 11/25/2023 10:00 AM EDT Office Visit Cardiology, [facility] [address] [place] [address] Jonnathan Song PA-C [address] [place] [address] 12/08/2023 3:30 PM EDT Office Visit Dermatology [facility] [address] [place] [address] Ama Galvez MD [address] [facility] [place] [address] 12/09/2023 11:30 AM EDT Office Visit Otolaryngology/Hea d & Neck/Facial Plastic Surgery [address] [place] [address] Francois Mae MD [address] [place] [address] 02/15/2024 10:00 AM EDT [facility] [address] [facility] [id number] Paulette Hernandez [facility] [address] [facility] [address] 02/22/2024 2:30 PM EDT Office Visit Hematology/Oncolog y [facility] [address] [facility] [place] [address] Smita Miller MD [address] [facility] [place] [address] 03/26/2024 10:30 AM EDT Nurse Only Ancillary [facility] 132 [facility] [place] [address] David Nurse Annual Wellness [facility] 132 [facility] [place] [address] Scheduled Procedures Name Priority Associated Diagnoses Date/Ti me BRONCHOSCOPY DIAGNOSTIC WITH OR WITHOUT WASHING Lung disorder 08/26/2023 2:30 PM EST COLONOSCOPY FLEXIBLE PROXIMAL DIAGNOSTIC Recall History of colon polyps Health Maintenance Due Date Last Done Comments DXA Scan 01/27/2023 01/28/2020, 03/13/2008 TSH 06/14/2023 06/14/2022, 04/02/2022, 10/29/2020, Additional history exists DTaP,Tdap,and Td Vaccines (2 - Td or Tdap) 08/20/2023 08/20/2013, 10/25/2007 GFR 02/23/2024 02/22/2023, 11/15, 08/02/2022, Additional history exists Depression Screening 03/23/2024 03/23/2023, 10/18/19 15 Albumin/Creatinine Ratio 04/22/2025 022, 04/25/2015, 04/29/2014 COLONOSCOPY-EVERY [...] this encounter Medical Devices Implanted Type Area Bank Consultant Device Identifier Shelf Expiration Date Model / Serial / Lot Piston Smart .6x4.25 [id number] - [id number] Implanted:Qty : 1 on 06/26/2013 at OR [facility] Left: Ear GYRUS : ENT 05/17/2022 [id number] / / [id number] Suture Steel 6 B&S19 [id number] - [id number] Implanted:Qty : 4 on 07/14/2019 by Genesis Rea MD at OR [facility] N/A: Sternum JNJ : [employer] 03/17/2024 [id number] / / [id number] documented as of this encounter Advance Directives [...] and were consensually agreed upon. Care Teams Licensed Occupational Therapist Relationship Specialty Start Date End Date Donn lCarke MD [address] [place] [address] PCP - General Internal Medicine 12/17/15 documented as of this encounter
--- OUTSIDE RECORDS SUMMARY | 2023-11-25 09:28 | External Medical Summary | Summary of Care ---
Author Name Unknown Organization [facility] Address [address] [place] [address] Phone [phone] Care Team Providers Care Chemistry Manager Name Role Phone Donn Clarke MD Primary Care Provider + Reason for Visit * Reason Onset Date Comments Appointment 08/17/2023 Encounter Details Date Type Department Care Team (Late st Contact Info) Description 08/17/2023 Telephone Pulmonary Medicine, [place] [address] [place] [address] Camila Gasca MD [address] [place] [address] Appointment Allergies Active Allergy Reactions [...] coated 81 MG TBECIndications:Coron myra atherosclerosis of [place] coronary artery Take 2 Tabs by mouth [...] Extended Release (Isoptin SR)Indications:[place] ry atherosclerosis of [place] coronary artery,PAF (paroxysmal atrial fibrillation) (HCC),HTN, goal [...] Nasal Aerosol (Nasacort Allergy 24HR) Administer 1 [place] into each nostril daily as needed. 0 [...] 100 Tablet 3 07/06/2023 4 Active Ipratropium [place] 0.06 % Nasal Solution (Atrovent) Administer 1 [place] into each nostril at bedtime. 45 mL [...] (3.0 x 34, 2.5 x 12 mm [place]). History of prostate cancer 12/01/2017 History of [...] lower eyelid MIS 02/2018 Coronary atherosclerosis of [place] coronary estella ry 05/16/2007 BPH without obstruction/lower [...] recommend f/u 3 years [employer] Other*[id number] 06/05/2007 08/24/2016 Overview: Study Title: Genomic Markers for Patients with Cardiovascular Disease Project # [id number] Ophthalmic Technologist: Aretha Rodríguez MD [phone] Coronary atherosclerosis of [place] coronary artery 05/16/2007 07/27/2019 ADVANCE DIRECTIVE INFORMATION [...] mRNA, LNP-s, No Pre serve, 2-Dose Series ([email or web address]) 10/21/2021,04/20/2021,09/23/2020,02/2021 COVID-19, LNP-s, No Preserve , Justyn-sucrose, Ages 12+ ([email or web address]) 10/21/2021 COVID-19, MRNA-LNP, 23-24, P F, 30 MCG/0.3 mL, 12 YRS AND ABOVE, IM ([employer]-Comirnaty) 04/12/2023 Covid-19, Mrna, Lnp-s, Pf, B ivalent, 30 Mcg, IM, 12 yrs and above ([email or web address]) 04/07/2022 Pneumococcal Conjugate Vacc, 13 Valent (Prevnar) [...] has been scheduled for a BAL @ [facility] on 08/26/2023 at 2:30PM. Instructions given to and reviewed with the patient. 1. Nothing to eat or drink after midnight before the test. 2. Arrive 1 hour prior to the procedure. 3. Report to the Endoscopy Suite via the HFAM entrance. 4. Patient will be under general anesthesia and will need a armor reconnaissance vehicle driver. Blood thinners? No Reviewed that an Endo pre-assessment nurse will reach out to the patient prior to the procedure to go over additional details. Patient states understanding and has no questions. Pt was advised that if they have any questions, they are encouraged to call the clinic, #[phone]. CT scheduled for 08/22. documented in this encounter Plan of Treatment Upcoming Encounters Date Type Department Care Team (Latest Contact Info) Description 08/19/2023 9:40 AM EST Office Visit General Internal Medicine [facility] [address] [place] [address] Donn Clarke MD 200 [place] [address] 08/22/2023 12:45 PM EST Imaging Radiology [address] [place] [address] 08/26/2023 2:30 PM EST Hospital Encounter ENDO [facility], Endoscopy Suite, HFAM 1, [address] [place] [address] Md Courtney Galeano MD [address] [place] [address] 08/26/2023 2:30 PM EST - 08/26/2023 4:00 PM EST Surgery ENDO [facility], Endoscopy Suite, HFAM 1, [address] [place] [address] Md Courtney Galeano MD [address] [place] [address] BRONCHOSCOPY DIAGNOSTIC WITH OR WITHOUT WASHING 11/25/2023 10:00 AM EDT Office Visit Cardiology, [facility] [address] [place] [address] Jonnathan Song PA-C [address] [place] [address] 12/08/2023 3:30 PM EDT Office Visit Dermatology [facility] [address] [place] [address] Ama Galvez MD [address] [place] [address] 12/09/2023 11:30 AM EDT Office Visit Otolaryngology/Hea d & Neck/Facial Plastic Surgery [address] [place] [address] Francois Mea MD [address] [place] [address] 02/15/2024 10:00 AM EDT [facility] [id number] Paulette Hernandez [facility] [address] [facility] [address] 02/22/2024 2:30 PM EDT Office Visit Hematology/Oncolog y [facility] [address] [facility] [place] [address] Smita Miller MD 200 [facility] [place] [address] 03/26/2024 10:30 AM EDT Nurse Only Ancillary [facility] 132 [facility] [place] [address] David Nurse Annual Wellness [facility] 132 [facility] [place] [address] Scheduled Procedures Name Priority Associated Diagnoses Date/Ti [...] this encounter Medical Devices Implanted Type Area Car Dryer Device Identifier Shelf Expiration Date Model / Serial / Lot Piston Smart .6x4.25 [id number] - [id number] Implanted:Qty : 1 on 06/26/2013 at OR [facility] Left: Ear GYRUS : ENT 05/17/2022 [id number] / / [id number] Suture Steel 6 B&S19 M654g - [id number] Implanted:Qty : 4 on 07/14/2019 by Genesis Rea MD at OR [facility] N/A: Sternum JNJ : [employer] 03/17/2024 [id number] / / [id number] documented as of this encounter Advance Directives [...] and were consensually agreed upon. Care Teams Chemistry Manager Relationship Specialty Start Date End Date Donn Clarke MD [address] [place] [address] PCP - General Internal Medicine 12/17/15 documented as of this encounter
--- OUTSIDE RECORDS SUMMARY | 2023-11-25 09:28 | External Medical Summary | Summary of Care ---
Author Name Unknown Organization [facility] Address [address] [place] [address] Phone [phone] Care Team Providers Care Instructional Technology Facilitator Name Role Phone Donn Clarke MD Primary Care Provider + Reason for Visit * Reason Comments Medication Refill Encounter Details Date Type Department Care Team (Late st Contact Info) Description 06/20/2023 Refill General Internal Medicine [facility] [address] [place] [address] Donn Clarke MD [address] [place] [address] Congenital hypothyroidism without goiter Allergies Active Allergy Reactions Criticality Noted Date Comments Lorazepam Low 07/27/2019 Codeine Nausea/vomiting Low 10/31/2018 Pollen Wheezing,Cough Low 11/30/2016 documented as of this encounter (statuses as of 08/16/2023) Medications Medication Sig Dispensed Refills Start Date [...] coated 81 MG TBECIndications:Donell nary atherosclerosis of [place] coronary artery Take 2 Tabs by mouth [...] Shortness of Breath,Indications: COPD/breathing, Reported on 09/03/2022 Losartan Potassium 100 MG Oral Tablet (Cozaar)Indications: HTN, goal below 140/90 Take 1 Tablet by mouth in the morning. 100 Tablet 3 04/28/2022 Active Fluorouracil 5 % External Cream (Efudex)Indications: Actinic keratosis apply to affected areas of face/scalp nightly for 2-3 weeks 40 g 1 10/03/2022 Active Ipratropium Mcgrath 0.06 % Nasal Solution (Atrovent) PLEASE SEE ATTACHED FOR DETAILED DIRECTIONS 0 12/17/2022 Active Spironolactone 25 MG Oral Tablet (Aldactone) [...] 45 mL 3 01/14/2023 01/14/20 24 Active Tamsulosin HCl 0.4 MG Oral Capsule (Flomax)Indications: BPH without obstruction/lower urinary tract symptoms TAKE ONE CAPSULE BY MOUTH AT BEDTIME 90 Capsule 2 12/10/2022 12/10/19 24 Active Verapamil HCl ER 120 MG Oral Tablet Extended Release (Isoptin SR)Indications:Coron myra atherosclerosis of [place] coronary artery,PAF (paroxysmal atrial fibrillation) (HCC),HTN, goal [...] MG Oral Tablet (Zoloft)Indications: Moderate major depression ([facility]) TAKE ONE TABLET BY MOUTH EVERY DAY [...] MCG/ACT Nasal Aerosol (Nasacort Allergy 24HR) Administer into nostril. 0 Active Ipratropium-Albutero l 0.5-2.5 (3) MG/3ML Inhalation Solution (Duoneb)Indications: ALEXANDER (dyspnea on exertion),Acute cough INHALE THE CONTENTS OF ONE VIAL VIA NEBULIZER EVERY 4 HOURS NEEDED FOR SHORTNESS OF BREATH AND OR WHEEZING 1620 mL 0 06/14/2023 06/13/20 24 Active Levothyroxine Sodium 150 MCG Oral Tablet (Levoxyl)Indications :Congenital hypothyroidism without goiter TAKE ONE TABLET BY MOUTH ON TUESDAY, TUESDAY, AND TUESDAY ONLY 36 Tablet 0 06/21/2023 Active Levothyroxine Sodium 150 MCG Oral Tablet (Levoxyl)Indications :Congenital hypothyroidism without goiter TAKE ONE TABLET BY MOUTH ON TUESDAY, TUESDAY, AND TUESDAY ONLY 45 Tablet 1 2022 06/20/20 23 Discontinu ed(Refill) Famotidine 20 MG Oral Tablet (Pepcid)Indications: Gastroesophageal reflux disease TAKE ONE TABLET BY MOUTH TWICE A DAY 180 Tablet 3 01/19/2022 06/20/20 23 Discontinu ed(Refill) Hospital, Clinic, or Other Facility Administered Medication Ordered Dose Route Frequency Start Date End Date Status methacholine (0 mg/mL) PLACEBO (Provocholine) inhalation solution 3 mLIndications:Shortness of breath 3 mL IN ONCE PRN 07/14/2022 Active documented as of this encounter (statuses as of 08/16/2023) Active Problems Problem Noted Date Diagnosed Date [...] (3.0 x 34, 2.5 x 12 mm Rosanky). History of prostate cancer 12/01/2017 History of pulmonary embolism 06/02/2017 Hx of actinic keratosis 09/03/2016 Beta-blockers contraindicated 10/17/2014 Overview: HR controlled Pancreatic duct dilated 07/26/2012 Asthma, moderate persistent 02/10/2011 HTN, goal below 140/90 01/21/2010 HX-SKIN MALIGNANCY NEC - multiple BCC 09/29/2009 Overview: BCCs: -2006 L neck -2006 L ala, R flank, L cheek, midback -2007 L upper back, R deltoid -2011 R presybeterian -2012 R temporal scalp -02/2014 BCC L chest -11/2018 BCC R medrano upper HX-MALIG SKIN MELANOMA - 2005 0.56 R post. 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, Hx melanoma in 2005, 0.56 mm on the Right neck; also hx MIS right midback 02/2014; L lower eyelid MIS 02/2018 Coronary atherosclerosis of [place] coronary estella ry 05/16/2007 BPH without obstruction/lower urinary tract symp toms 08/03/2002 Chronic rhinitis 08/03/2002 documented as of this encounter (statuses as of 08/16/2023) Resolved Problems Problem Noted Date Diagnosed Date [...] Bilateral PE 02/08/2011 06/02/2017 HX-MALIG SKIN MELANOMA 2005, 0.56mm R neck 04/01/2010 04/01/2010 Dyslipidemia, goal LDL below 100 06/24/2009 06/02/2017 Overview: Per Lipid Taxonomy. Benign neoplasm of colon 08/22/2008 Overview: hyperplastic polyps & lympoid aggregate, recommend f/u 3 years Benign neoplasm of colon 08/22/200801/2010 Overview: hyperplastic polyps & lympoid aggregate, recommend f/u 3 years [employer] Other*[id number] 06/05/2007 08/24/2016 Overview: Study Title: Genomic Markers for Patients with Cardiovascular Disease Project # [id number] Sander And Polisher: Aretha Rodríguez MD [phone] Coronary atherosclerosis of [place] coronary artery 05/16/2007 07/27/2019 ADVANCE DIRECTIVE INFORMATION [...] as of this encounter (statuses as of 08/16/2023) Immunizations Name Administration Dates Next Due COVID-19 mRNA, LNP-s, No Pre serve, 2-Dose Series (ZipZap) 10/21/2021,04/20/2021,09/23/2020,08/25 Pneumococcal Conjugate Vacc, 13 Valent (Prevnar) 10/17/2014 Pneumococcal Polysaccharide PPV23 (Pneumovax) 07/30/2011 Season Influenza, Quad, PF, Adjuvanted, 65+ Yrs, IM (FLUAD) 04/01/2020 Seasonal Influenza Virus Vac cine, Unspecified Formulation 04/01/2020,03/27/2019,03/31/2018,03/23,04/01/2016,04/02/2015,03/26/2014 ,04/17/2013,04/13/2012,04/20/2011,01/2010,05/06/2009,05/28/2008, 7,04/26/2006,05/30/2003,06/04/2002 Seasonal Influenza, PF, 6 M & above, IM , (FluLaval or Fluzone) 03/27/2019,03/31/2018 Seasonal Influenza, Quadriva lent Hd (Fluzone Hd) 04/05/2023,03/23/2022,04/15/2021 Seasonal Influenza, Quadriva lent, No Preserve, IM 03/23/2017,04/01/2016 Seasonal Influenza, Split, I IV3, With Preserve, [...] encounter Miscellaneous Notes * Telephone Encounter - Zhanna Virgen neurology nurse - 08/16/2023 5:53 PM EST Received message from [facility] regarding patient needing labs. Placed call to patient to advise. Pt was agreeable to have labs drawn but would prefer to walk-in at their convenience. Patient will go to lab on 08/22/2023 after appointment. Thank you, Zhanna Virgen Audit Clerk [facility] ([facility]) 08/16/2023,5:53 PM * Telephone Encounter - Freddy Schaeffer [facility] - 06/21/2023 9:33 AM ESTSigned Prescriptions: Disp Refills Levothyroxine Sodium 150 MCG Oral Tablet (*36 Tab*0 Sig: TAKE ONE TABLET BY MOUTH ON TUESDAY, TUESDAY, AND TUESDAY ONLYAuthorizing Provider: DONN CLARKE User: FREDDY SCHAEFFER * Telephone Encounter - Freddy Schaeffer [facility] - 06/21/2023 9:32 AM EST Provided 90 days supply with 0 refill(s). Per refill protocol patient should have tsh.t4 on file within past year. Reviewed AMP report, Care Gaps/Health Maintenance, medications list, and for any routine labs typically ordered for this patient. Lab orders placed. Please contact patient to advise of labs ordered for blood draw. Recommend patient to fast if able for labs. Patient may still have water and regular medications. Advise to obtain labs before requesting the next refill. Thanks, Freddy Schaeffer, PharmD Clinical Pharmacist [facility] ([facility]) [phone] 06/21/2023 9:32 AM documented in this encounter Plan of Treatment Upcoming Encounters Date Type Department Care Team (Late st Contact Info) Description 08/17/2023 2:00 PM EST Office Visit Pulmonary Medicine, [facility] [address] [place] [address] Macrina Bhat MD [address] [place] [address] 08/19/2023 9:40 AM EST Office Visit General Internal Medicine [facility] [address] [facility] [place] [address] Donn Clarke MD 200 [facility] [place] [address] 11/25/2023 10:00 AM EDT Office Visit Cardiology, [facility] [address] [place] [address] Jonnathan Song PA-C 132 [facility] [place] [address] 12/08/2023 3:30 PM EDT Office Visit Dermatology [facility] [address] [place] [address] Ama Galvez MD 200 [facility] [place] [address] 12/09/2023 11:30 AM EDT Office Visit Otolaryngology/Head & Neck/Facial Plastic Surgery [address] [place] [address] Francois Mae MD [address] [place] [address] 02/15/2024 10:00 AM EDT Laboratory Laboratory, [facility] 132 [facility] [place] [phone] Paulette Hernandez [facility] [address] 02/22/2024 2:30 PM EDT Office Visit Hematology/Oncology [facility] 200 [facility] [place] [address] Smita Miller MD 200 [facility] [place] [address] 03/26/2024 10:30 AM EDT Nurse Only Ancillary [facility] 132 [facility] [place] [address] David, Nurse Annual Wellness [facility] [address] [facility] [place] [address] Scheduled Procedures Name Priority Associated Diagnoses Date/Ti me COLONOSCOPY FLEXIBLE PROXIMAL DIAGNOSTIC Recall History of colon polyps Health Maintenance Due Date Last Done Comments DXA Scan 01/27/2023 01/28/2020, 03/13/2008 TSH 06/14/2023 06/14/2022, 04/0 02/2022, 10/29/2020, Additional history exists DTaP,Tdap,and Td Vaccines [...] Influenza Vaccine (FLU shot) Completed 04/05/2023, 03/23/2022, 04/15/2021, Additional history exists COVID-19 Vaccine Completed 04/12/2023, [...] encounter Medical Devices Implanted Type Area Emergency Room Orderly Device Identifier Shelf Expiration Date Model / Serial / Lot Jenna Smart .6x4.25 [id number] - [id number] Implanted:Qty : 1 on 06/26/2013 at [place] [facility] Left: Ear GYRUS : ENT 05/17/2022 [id number] / / [id number] Suture Steel 6 B&S19 M654g - [id number] Implanted:Qty : 4 on 07/14/2019 by Genesis Rea MD at [place] [facility] N/A: Sternum JNJ : [employer] 03/17/2024 [id number] / / [id number] documented as of this encounter Visit Diagnoses Diagnosis 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 Care Teams Instructional Technology Facilitator Relationship Specialty Start Date End Date Donn Clarke MD [address] [place] [address] PCP - General Internal Medicine 12/17/15 documented as of this encounter
--- OUTSIDE RECORDS SUMMARY | 2023-11-25 09:28 | External Medical Summary | Summary of Care ---
Author Name Unknown Organization [facility] Address [address] [place] [address] Phone [phone] Care Team Providers Care Waste Duster Name Role Phone Donn Clarke MD Primary Care Provider + Reason for Visit * Reason Comments Outpatient Testing Encounter Details Date Type Department Care Team (Late st Contact Info) Description 08/19/2023 10:20 AM EST Laboratory Laboratory [facility] [address] [place] [address] [facility] 200 [facility] [place] [address] Dyslipidemia, goal LDL below 70; Postoperative hypothyroidism Allergies Active Allergy Reactions Criticality Noted Date Comments Lorazepam Low 07/27/2019 Codeine Nausea/vomiting Low 10/31/2018 Pollen Wheezing,Cough Low 11/30/2016 documented as of this encounter (statuses as of 08/19/2023) Medications Medication Sig Dispensed Refills Start Date [...] coated 81 MG TBECIndications:Coron myra atherosclerosis of [place] coronary artery Take 2 Tabs by mouth [...] Extended Release (Isoptin SR)Indications:[place] ry atherosclerosis of [place] coronary artery,PAF (paroxysmal atrial fibrillation) (HCC),HTN, goal [...] Nasal Aerosol (Nasacort Allergy 24HR) Administer 1 Sieper into each nostril daily as needed. 0 [...] 100 Tablet 3 07/06/2023 4 Active Ipratropium Lowman 0.06 % Nasal Solution (Atrovent) Administer 1 Sieper into each nostril at bedtime. 45 mL 3 08/17/2023 Active Hospital, Clinic, or Other Facility Administered Medication Ordered Dose Route Frequency Start Date End Date Status methacholine (0 mg/mL) PLACEBO (Provocholine) inhalation solution 3 mLIndications:Shortness of breath 3 mL IN ONCE PRN 07/14/2022 Active documented as of this encounter (statuses as of 08/19/2023) Active Problems Problem Noted Date Diagnosed Date [...] single drug-eluting stent (3.0 x 15 mm [place]). 3. Successful PCI of ostial to mid [...] L upper back, R deltoid -2011 R restorationist -2012 R temporal scalp -02/2014 BCC L chest -11/2018 BCC R medrano upper HX-MALIG SKIN MELANOMA - 2005 0.56 R post. 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, Hx melanoma in 2005, 0.56 mm on the Right neck; also hx MIS right midback 02/2014; L lower eyelid MIS 02/2018 Coronary atherosclerosis of [place] coronary estella ry 05/16/2007 BPH without obstruction/lower urinary tract symp toms 08/03/2002 Chronic rhinitis 08/03/2002 documented as of this encounter (statuses as of 08/19/2023) Resolved Problems Problem Noted Date Diagnosed Date [...] recommend f/u 3 years [employer] Other*[id number] 06/05/2007 08/24/2016 Overview: Study Title: Genomic Markers for Patients with Cardiovascular Disease Project # [id number] Filter Washer: Aretha Rodríguez MD [phone] Coronary atherosclerosis of [place] coronary artery 05/16/2007 07/27/2019 ADVANCE DIRECTIVE INFORMATION [...] as of this encounter (statuses as of 08/19/2023) Immunizations Name Administration Dates Next Due COVID-19 mRNA, LNP-s, No Pre serve, 2-Dose Series (Forrst) 10/21/2021,04/20/2021,09/23/2020,08/25 COVID-19, LNP-s, No Preserve , Justyn-sucrose, [...] Description 08/22/2023 12:45 PM EST Imaging Radiology [address] [place] [address] 08/26/2023 2:30 PM EST Hospital Encounter ENDO [facility], Endoscopy Suite, HFAM 1, [address] [place] [facility] [address] Md Courtney Galeano MD [address] [place] [address] 08/26/2023 2:30 PM EST - 08/26/2023 4:00 PM EST Surgery ENDO [facility], Endoscopy Suite, HFAM 1, [address] [place] [facility] [address] Md Courtney Galeano MD [address] [place] [address] BRONCHOSCOPY DIAGNOSTIC WITH OR WITHOUT WASHING 11/25/2023 10:00 AM EDT Office Visit Cardiology, [facility] [address] [place] [address] Jonnathan Song PA-C 132 [facility] [place] [address] 12/08/2023 3:30 PM EDT Office Visit Dermatology [facility] [address] [place] [address] Ama Galvez MD [address] [place] [address] 12/09/2023 11:30 AM EDT Office Visit Otolaryngology/Hea d & Neck/Facial Plastic Surgery [address] [place] [facility] [place] [address] Francois Mae MD [address] [place] [facility] [place] [address] 02/15/2024 10:00 AM EDT Laboratory Laboratory, [facility] [address] [place] [phone] Paulette Hernandez [facility] 132 [facility] [place] [address] 02/22/2024 2:30 PM EDT Office Visit Hematology/Oncolog y [facility] [address] [facility] [place] [address] Smita Miller MD [address] [facility] [place] [address] 02/24/2024 9:20 AM EDT Office Visit General Internal Medicine [facility] [address] [facility] [place], [place] [address] Donn Clarke MD [address] [facility] [place], [place] [address] 03/26/2024 10:30 AM EDT Nurse Only Ancillary [facility] [address] [place] [address] [facility], Nurse Annual Wellness [facility] [address] [place] [address] Pending Results Name Type Priority Associated Diagnoses Date /Time COMPREHENSIVE METABOLIC PANEL Lab Routine Dyslipidemia, goal LDL below 70 08/19/2023 10:18 AM EST LIPID PANEL WITH DIRECT LDL IF TG IS HIGH Lab Routine Dyslipidemia, goal LDL below 70 08/19/2023 10:18 AM EST TSH Lab Routine Postoperative hypothyroidism 08/19/2023 10:18 AM EST Scheduled Procedures Name Priority Associated [...] Tdap) 08/20/2023 08/20/2013, 10/25/2007 GFR 02/23/2024 02/22/2023, 0502/2023, 08/02/2022, Additional history exists Depression Screening 03/23/2024 [...] this encounter Medical Devices Implanted Type Area Stiff Leg Derrick Operator Device Identifier Shelf Expiration Date Model / Serial / Lot Piston Smart .6x4.25 [id number] - [id number] Implanted:Qty : 1 on 06/26/2013 at OR [facility] Left: Ear GYRUS : ENT 05/17/2022 [id number] / / [id number] Suture Steel 6 B&S19 M654g - [id number] Implanted:Qty : 4 on 07/14/2019 by Genesis Rea MD at OR [facility] N/A: Sternum JNJ : [employer] 03/17/2024 [id number] / / [id number] documented as of this encounter Visit Diagnoses Diagnosis Dyslipidemia, goal LDL below 70 Other and unspecified hyperlipidemia Postoperative hypothyroidism Postsurgical hypothyroidism Lung disorder Other diseases of lung, not [...] and were consensually agreed upon. Care Teams Waste Duster Relationship Specialty Start Date End Date Donn Clarke MD [address] [facility] [place] [address] PCP - General Internal Medicine 12/17/15 documented as of this encounter
--- OUTSIDE RECORDS SUMMARY | 2023-11-25 09:28 | External Medical Summary ---
Author Name Unknown Address Unknown Organization K09:[facility] [address] [place] [address] Laboratory Report Ordering Provider Test Date Status CATHLEENTANIA 08/19/2023 10:18:34 Final Observation Date Value Abnormality Reference (Units ) Status BUN 08/19/2023 10:18:34 17 6-20 (mg/dL) Final Creatinine 08/19/2023 10:18:34 1.2 0.6-1.2 (mg/dL) Final Glomerular filtration rate/1.73 sq M.predicted [Volume Rate/Area] in Serum, Plasma or Blood by Creatinine-based formula (CKD-EPI) 08/19/2023 10:18:34 64 >=60 (mL/min) Final eGFR is calculated based on the CKD-EPI 2020 equation SODIUM 08/19/2023 10:18:34 139 135-146 (m mol/L) Final Potassium 08/19/2023 10:18:34 4.3 3.5-5.1 (m mol/L) Final Cl 08/19/2023 10:18:34 104 98-107 (mm ol/L) Final CO2 08/19/2023 10:18:34 23 22-32 (mmo l/L) Final Anion gap 08/19/2023 10:18:34 12 7-15 (mmol /L) Final Glucose 08/19/2023 10:18:34 90 70-120 (mg /dL) Final Albumin 08/19/2023 10:18:34 4.0 3.8-5.0 (g /dL) Final AST (Aspartate aminotransferase) 08/19/2023 10:18:34 16 10-50 (U/L) Final Alk Phos 08/19/2023 10:18:34 108 35-130 (U/ L) Final Bilirubin, Total 08/19/2023 10:18:34 0.8 <=1 .2 (mg/dL) Final Calcium 08/19/2023 10:18:34 9.7 8.4-10.2 ( mg/dL) Final Protein 08/19/2023 10:18:34 6.2 6.0-8.3 (g /dL) Final ALT (Alanine aminotransferase) 08/19/2023 10:18:34 17 10-50 (U/L) Final Performing Location [facility] [address] [place] [address]
--- OUTSIDE RECORDS SUMMARY | 2023-11-25 09:28 | External Medical Summary | Summary of Care ---
Author Name Unknown Organization [facility] Address [address] [place] [address] Phone [phone] Care Team Providers Care Dog Beautician Name Role Phone Donn Clarke MD Primary Care Provider + Reason for Visit * Reason Comments Follow Up 6 month return. Georgiana ent denied any new concerns, would like to discuss RSV shot Encounter Details Date Type Department Care Team (Latest Contact Info) Description 08/19/2023 9:40 AM EST Office Visit General Internal Medicine [facility] [address] [place] [address] Donn Clarke MD [address] [place] [address] HTN, goal below 140/90*; Bronchiectasis with acute [...] coated 81 MG TBECIndications:Coron myra atherosclerosis of cocop[place] coronary artery Take 2 Tabs by mouth [...] Extended Release (Isoptin SR)Indications:[place]idd[place] ry atherosclerosis of cocop[place] coronary artery,PAF (paroxysmal atrial fibrillation) (HCC),HTN, goal [...] Nasal Aerosol (Nasacort Allergy 24HR) Administer 1 Hen[place]son into each nostril daily as needed. 0 [...] 100 Tablet 3 07/06/2023 4 Active Ipratropium [place] 0.06 % Nasal Solution (Atrovent) Administer 1 [place] into each nostril at bedtime. 45 mL [...] lower eyelid MIS 02/2018 Coronary atherosclerosis of cocop[place] coronary estella ry 05/16/2007 BPH without obstruction/lower [...] recommend f/u 3 years [employer] Other*[id number] 06/05/2007 08/24/2016 Overview: Study Title: Genomic Markers for Patients with Cardiovascular Disease Project # [id number] Senior Power Scheduler: Aretha Rodríguez MD [phone] Coronary atherosclerosis of cocopah coronary artery 05/16/2007 07/27/2019 ADVANCE DIRECTIVE INFORMATION [...] mRNA, LNP-s, No Pre serve, 2-Dose Series ([employer]) 10/21/2021,04/20/2021,09/23/2020,08/25 COVID-19, LNP-s, No Preserve , Justyn-sucrose, Ages 12+ (Pfizer) 10/21/2021 COVID-19, MRNA-LNP, 23-24, P F, 30 MCG/0.3 mL, 12 YRS AND ABOVE, IM ([facility]) 04/12/2023 Covid-19, Mrna, Lnp-s, Pf, B [...] CABG x 2 Z95.1 Coronary atherosclerosis of cocopah coronary artery I25.10 Postoperative hypothyroidism E89.0 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 Ipratropium-Albuterol [...] MOUTH EVERY DAY 100 Tablet 3 Ipratropium [place] 0.06 % Nasal Solution (Atrovent) Administer 1 [place] into each nostril at bedtime. 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 dr floyd in [place](benign) erectile dysfunction 08/30/2002 History of prostate cancer [...] performed by Genesis Rea MD at [place] [facility] CATARACT SURGERY,COMPLEX Bilateral 06/2019 COLONOSCOPY 11/15/2011 adenomatous polyp--repeat 5 years COLONOSCOPY W/ BLEEDING CONTROL 08/18/2007 adenomatous polyps--repeat in 1 year COLONOSCOPY W/ LESION REMOVAL, SNARE 08/22/2008 hyperplastic polyps & lympoid aggregate, recommend f/u 3 years COLONOSCOPY, DIAGNOSTIC (RECTUM) 11/03/2016 TVA polyps, diverticulosis, repeat 3 yrs/COLONOSCOPY FLEXIBLE PROXIMAL DIAGNOSTIC performed by Robyn Heller DO at ENDOSCOPY [facility] COLONOSCOPY, DIAGNOSTIC (RECTUM) 08/11/2020 adenomatous polyps, repeat 5 yrs / COLONOSCOPY FLEXIBLE PROXIMAL DIAGNOSTIC performed by Robyn Heller DO at ENDOSCOPY [facility] CYSTOSCOPY 03/31/2010 DESTROY EYELID MARGIN LESION 03/2018 Dr Ruiz EGD, W/ENDOSCOPIC US 04/13/2011 UPPER GI ENDOSCOPY ENDOSCOPIC ULTRASOUND performed by JEFFRY HINES at ENDOSCOPY [facility] EGD, W/ENDOSCOPIC US 08/02/2012 UPPER GI ENDOSCOPY ENDOSCOPIC ULTRASOUND performed by Robyn Heller DO at OR [facility] EGD, W/ENDOSCOPIC US 06/03/2014 liver cyst, CBD dilation, ESOPHAGOGASTRODUODENOSCOPY (EGD), FLEXIBLE, TRANSORAL, ENDOSCOPIC ULTRASOUND performed by Robyn Heller DO at ENDOSCOPY [facility] ERCP 12/07/2020 choledocholithiasis, stent placed, repeat 4 wks / [facility] ERCP 01/30/2021 Choledocholithiasis, stent removed / [facility] INFORMATION thyroid removed INFORMATION 04/04/2006 Appendectomy INFORMATION Left 2012 Smart Stapes Piston Ear Implant- Mri Safe INTERSTITIAL RADIATION APPLICATION, COMPLEX 08/25/2006 Performed by FADUMO YATES at [place] [facility] Log [id number] LAPAROSCOPY; CHOLECYSTECTOMY 12/09/2020 MISCELLANEOUS ORDER ([facility] ONLY) Left 03/08/2018 Take Down of Asael's Flap - Dr. Pascale GARCIA, 1ST STAGE; FACE, HANDS, FEET, NERVE Left 02/15/2018 Dr. Ashraf-left lower lid MOH's repair NASAL/SINUS ENDOSCOPY, SURGICAL ?1989 Dr Santillan at [facility] NASAL/SINUS ENDOSCOPY, SURGICAL 09/2002 Dt Stetz NEEDLE/CATHETER PLACEMENT, PROSTATE 08/25/2006 Performed by FADUMO YATES at [place] [facility] Log [id number] REMOVAL OF APPENDIX 2005 REPAIR ARM TENDON/MUSCLE 2000 REVISION OF MIDDLE EAR BONE 06/26/2013 STAPEDECTOMY REESTABLISH OSSICULAR CONTINUITY performed by Jose Morrison MD at [place] [facility] ULTRASONIC GUIDE, INTERSTITIAL RADIOELEMENT 08/25/2006 Performed by FADUMO YATES at [facility] Log [id number] UMBIL HERNIA REPAIR (REDUCIBLE) AGE 5+YR 11/2020 Dr. leiva US ENDOSCOPIC 01/30/2021 kidney cyst / [facility] US TRANSRECTAL (GEN SURG) 12/2005 trus biopsy [...] discuss RSV shot documented in this encounter Plan of Treatment Upcoming Encounters Date Type Department Care Team (Latest Contact Info) Description 08/22/2023 12:45 PM EST Imaging Radiology [facility] 1st [facility] [address] [facility] [place] [address] 08/26/2023 2:30 PM EST Hospital Encounter ENDO [facility], Endoscopy Suite, HFAM 1, [address] [facility] [place] [address] Md Courtney Galeano MD [address] [place] [address] 08/26/2023 2:30 PM EST - 08/26/2023 4:00 PM EST Surgery [facility], Endoscopy Suite, HFAM 1, [address] [facility] [place] [address] Md Courtney Galeano MD [address] [place] [address] BRONCHOSCOPY DIAGNOSTIC WITH OR WITHOUT WASHING 11/25/2023 10:00 AM EDT Office Visit Cardiology, [facility] [address] [facility] [place] [address] Jonnathan Song PA-C [facility] [address] 12/08/2023 3:30 PM EDT Office Visit Dermatology [facility] [address] [place] [address] Ama Galvez MD [address] [place] [address] 12/09/2023 11:30 AM EDT Office Visit Otolaryngology/Hea d & Neck/Facial Plastic Surgery [address] [facility] [place] [address] Francois Mae MD [address] [facility] [place] [address] 02/15/2024 10:00 AM EDT Laboratory Laboratory, [facility] [address] [facility] [place] [phone] HernandezPaulette enamorado [facility] [address] 02/22/2024 2:30 PM EDT Office Visit Hematology/Oncolog y [facility] [address] [place] [address] Smita Miller MD 200 [facility] [place] [address] 02/24/2024 9:20 AM EDT Office Visit General Internal Medicine [facility] [address] [facility] [place] [address] Donn Clarke MD [address] [facility] [place] [address] 03/26/2024 10:30 AM EDT Nurse Only Ancillary [facility] [address] [facility], Nurse Annual Wellness [facility] [address] Pending Results Name Type Priority Associated Diagnoses Date /Time COMPREHENSIVE METABOLIC PANEL Lab Routine Dyslipidemia, goal LDL below 70 08/19/2023 10:18 AM EST LIPID PANEL WITH DIRECT LDL IF TG IS HIGH Lab Routine Dyslipidemia, goal LDL below 70 08/19/2023 10:18 AM EST TSH Lab Routine Postoperative hypothyroidism 08/19/2023 10:18 AM EST Scheduled Orders Name Type Priority Associated Diagnoses Orde r Schedule COMPREHENSIVE METABOLIC PANEL Lab Routine Dyslipidemia, goal LDL below 70 Expected: 08/19/2023 (Approximate), Expires: 08/18/2024 LIPID PANEL WITH DIRECT LDL IF TG IS HIGH Lab Routine Dyslipidemia, goal LDL below 70 Expected: 08/19/2023, Expires: 08/19/2024 TSH Lab Routine Postoperative hypothyroidism Expected: 08/19/2023 (Approximate), Expires: 08/18/2024 Scheduled Procedures Name Priority Associated Diagnoses Date/Ti [...] this encounter Medical Devices Implanted Type Area Information Technology Account Manager Device Identifier Shelf Expiration Date Model / Serial / Lot Jenna Smart .6x4.25 [id number] - [id number] Implanted:Qty : 1 on 06/26/2013 at [place] [facility] Left: Ear GYRUS : ENT 05/17/2022 [id number] / / [id number] Suture Steel 6 B&S19 M654g - [id number] Implanted:Qty : 4 on 07/14/2019 by Genesis Rea MD at [place] [facility] N/A: Sternum JNJ : [employer] 03/17/2024 [id number] / / [id number] documented as of this encounter Visit Diagnoses Diagnosis HTN, goal [...] and were consensually agreed upon. Care Teams Dog Beautician Relationship Specialty Start Date End Date Donn Clarke MD [address] [place] [address] PCP - General Internal Medicine 12/17/15 documented as of this encounter
--- OUTSIDE RECORDS SUMMARY | 2023-11-25 09:29 | External Medical Summary | Summary of Care ---
Author Name Unknown Organization [facility] Address [address] [place] [address] Phone [phone] Care Team Providers Care Polishing Machine Operator Name Role Phone Donn Clarke MD Primary Care Provider + Reason for Visit * Reason Comments Medication Refill Encounter Details Date Type Department Care Team (Late st Contact Info) Description 07/04/2023 Refill General Internal Medicine [facility] [address] [place] [address] Donn Clarke MD [address] [place] [address] HTN, goal below 140/90 Allergies Active Allergy Reactions Criticality Noted Date Comments Lorazepam Low 07/27/2019 Codeine Nausea/vomiting Low 10/31/2018 Pollen Wheezing,Cough Low 11/30/2016 documented as of this encounter (statuses as of 07/06/2023) Medications Medication Sig Dispensed Refills Start Date [...] coated 81 MG TBECIndications:Coron myra atherosclerosis of del[place] tribe coronary artery Take 2 Tabs by mouth [...] 09/03/2022 Losartan Potassium 100 MG Oral Tablet (Cozaar)Indications:H TN, goal below 140/90 Take 1 Tablet by mouth in the morning. 100 Tablet 3 04/28/2022 Active Fluorouracil 5 % External Cream (Efudex)Indications:A ctinic keratosis apply to affected areas of face/scalp nightly for 2-3 weeks 40 g 1 10/03/2022 Active Ipratropium [place] 0.06 % Nasal Solution (Atrovent) PLEASE SEE ATTACHED FOR DETAILED DIRECTIONS 0 12/17/2022 Active Spironolactone 25 MG Oral Tablet (Aldactone) Take 0.5 Tablets by mouth in the morning. 50 Tablet [...] Extended Release (Isoptin SR)Indications:Middleton ry atherosclerosis of [place] tribe coronary artery,PAF (paroxysmal atrial fibrillation) (HCC),HTN, goal [...] Allergy 24HR) Administer into nostril. 0 Active Ipratropium-Albuterol 0.5-2.5 (3) MG/3ML Inhalation [...] TUESDAY ONLY 36 Tablet 0 06/21/2023 Active Hospital, Clinic, or Other Facility Administered Medication Ordered Dose Route Frequency Start Date End Date Status methacholine (0 mg/mL) PLACEBO (Provocholine) inhalation solution 3 mLIndications:Shortness of breath 3 mL IN ONCE PRN 07/14/2022 Active documented as of this encounter (statuses as of 07/06/2023) Active Problems Problem Noted Date Diagnosed Date [...] single drug-eluting stent (3.0 x 15 mm Narka). 3. Successful PCI of ostial to mid [...] L upper back, R deltoid -2011 R orthodoxy -2012 R temporal scalp -02/2014 BCC L chest -11/2018 BCC R medrano upper HX-MALIG SKIN MELANOMA - 2006 0.56 R post. 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, Hx melanoma in 2005, 0.56 mm on the Right neck; also hx MIS right midback 02/2014; L lower eyelid MIS 02/2018 Coronary atherosclerosis of del[place] tribe coronary estella ry 05/16/2007 BPH without obstruction/lower urinary tract symp toms 08/03/2002 Chronic rhinitis 08/03/2002 documented as of this encounter (statuses as of 07/06/2023) Resolved Problems Problem Noted Date Diagnosed Date [...] recommend f/u 3 years [employer] Other*[id number] 06/05/2007 08/24/2016 Overview: Study Title: Genomic Markers for Patients with Cardiovascular Disease Project # [id number] Terrazzo Polisher Helper: Aretha Rodríguez MD [phone] Coronary atherosclerosis of del[place] tribe coronary artery 05/16/2007 07/27/2019 ADVANCE DIRECTIVE INFORMATION [...] as of this encounter (statuses as of 07/06/2023) Immunizations Name Administration Dates Next Due COVID-19 mRNA, LNP-s, No Pre serve, 2-Dose Series (sezmi) 10/21/2021,04/20/2021,09/23/2020,08/25 Pneumococcal Conjugate Vacc, 13 Valent (Prevnar) [...] encounter Miscellaneous Notes * Telephone Encounter - Marizol Andrew PHARM Tech - 07/06/2023 1:22 PM ESTNo prescriptions requested or ordered in this encounter documented in this encounter Plan of Treatment Upcoming Encounters Date Type Department Care Team (Late st Contact Info) Description 08/17/2023 2:00 PM EST Office Visit Pulmonary Medicine, [place] [address] [place] [address] Macrina Bhat MD [address] [place] [address] 08/19/2023 9:40 AM EST Office Visit General Internal Medicine [facility] [place] [address] [place] [address] Donn Clarke MD [address] [place] [address] 11/25/2023 10:00 AM EDT Office Visit Cardiology, [facility] [address] [facility] [place] [address] Jonnathan Song PA-C [address] [place] [address] 12/08/2023 3:30 PM EDT Office Visit Dermatology [facility] [address] [place] [address] Ama Galvez MD 200 [facility] [place] [address] 02/15/2024 10:00 AM EDT Laboratory Laboratory, [facility] [address] [facility] [place] [phone] Paulette Hernandez [address] [place] [address] 02/22/2024 2:30 PM EDT Office Visit Hematology/Oncology [facility] [address] [place] [address] Smita Miller MD 200 [facility] [place] [address] 03/26/2024 10:30 AM EDT Nurse Only Ancillary [facility] [address] [facility] [place] [address] [place], Nurse Annual Wellness [address] [place] [address] Scheduled Procedures Name Priority Associated Diagnoses Date/Ti [...] this encounter Medical Devices Implanted Type Area Drosser Device Identifier Shelf Expiration Date Model / Serial / Lot Piston Smart .6x4.25 [id number] - [id number] Implanted:Qty : 1 on 06/26/2013 at [place] [facility] Left: Ear GYRUS : ENT 05/17/2022 [id number] / / [id number] Suture Steel 6 B&S19 M654g - [id number] Implanted:Qty : 4 on 07/14/2019 by Genesis Rea MD at [facility] N/A: Sternum JNJ : [employer] 03/17/2024 M654G / / [id number] documented as of this encounter Visit Diagnoses Diagnosis HTN, goal below 140/90 Unspecified essential hypertension documented in this encounter Advance Directives Latest [...] and were consensually agreed upon. Care Teams Polishing Machine Operator Relationship Specialty Start Date End Date Donn Clarke MD [address] [place] [address], [place] [address] PCP - General Internal Medicine 12/17/15 documented as of this encounter
--- OUTSIDE RECORDS SUMMARY | 2023-11-25 09:29 | External Medical Summary | Summary of Care ---
Author Name Unknown Organization [facility] Address [address] [place] [address] Phone [phone] Care Team Providers Care Pension Adviser Name Role Phone Donn Clarke MD Primary Care Provider + Reason for Visit * Reason Comments Medication Refill Encounter Details Date Type Department Care Team (Late st Contact Info) Description 06/20/2023 Refill Cardiology [address] [place] [phone] Percy Gibbs PA-C [address] [place] [address] Gastroesophageal reflux disease Allergies Active Allergy Reactions Criticality Noted Date Comments Lorazepam Low 07/27/2019 Codeine Nausea/vomiting Low 10/31/2018 Pollen Wheezing,Cough Low 11/30/2016 documented as of this encounter (statuses as of 06/21/2023) Medications Medication Sig Dispensed Refills Start Date [...] coated 81 MG TBECIndications:Donell nary atherosclerosis of sw[place]om[place] coronary artery Take 2 Tabs by mouth [...] weeks 40 g 1 10/03/2022 Active Ipratropium [place] 0.06 % Nasal Solution (Atrovent) PLEASE SEE [...] Extended Release (Isoptin SR)Indications:Coron myra atherosclerosis of sw[place]om[place] coronary artery,PAF (paroxysmal atrial fibrillation) ([facility]),HTN, goal below 140/90 TAKE ONE TABLET BY [...] 180 Tablet 3 06/21/2023 06/20/20 24 Active Levothyroxine Sodium 150 MCG Oral Tablet (Levoxyl)Indications :Congenital hypothyroidism without goiter TAKE ONE TABLET BY MOUTH ON TUESDAY, TUESDAY, AND TUESDAY ONLY 36 Tablet 0 06/21/2023 Active Famotidine 20 MG Oral Tablet (Pepcid)Indications: [...] as of this encounter (statuses as of 06/21/2023) Active Problems Problem Noted Date Diagnosed Date [...] (3.0 x 34, 2.5 x 12 mm Exchange). History of prostate cancer 12/01/2017 History of [...] lower eyelid MIS 02/2018 Coronary atherosclerosis of swinomish coronary estella ry 05/16/2007 BPH without obstruction/lower urinary tract symp toms 08/03/2002 Chronic rhinitis 08/03/2002 documented as of this encounter (statuses as of 06/21/2023) Resolved Problems Problem Noted Date Diagnosed Date [...] recommend f/u 3 years [employer] Other*[id number] 06/05/2007 08/24/2016 Overview: Study Title: Genomic Markers for Patients with Cardiovascular Disease Project # [id number] Childcare Attendant: Aretha Rodríguez MD [phone] Coronary atherosclerosis of swinom[place] coronary artery 05/16/2007 07/27/2019 ADVANCE DIRECTIVE INFORMATION [...] as of this encounter (statuses as of 06/21/2023) Immunizations Name Administration Dates Next Due COVID-19 mRNA, LNP-s, No Pre serve, 2-Dose Series (Tiempo) 10/21/2021,04/20/2021,09/23/2020,08/25 Pneumococcal Conjugate Vacc, 13 Valent (Prevnar) 10/17/2014 Pneumococcal Polysaccharide PPV23 (Pneumovax) 07/30/2011 SEASONAL INFLUENZA, PF, 6 M & Above, IM , (FLULAVAL or FLUZONE) 03/27/2019,03/31/2018 Season Influenza, Quad, PF, Adjuvanted, 65+ Yrs, IM (FLUAD) 04/01/2020 Seasonal Influenza Virus Vac cine, Unspecified Formulation 04/01/2020,03/27/2019,03/31/2018,03/23,04/01/2016,04/02/2015,03/26/2014 ,04/17/2013,04/13/2012,04/20/2011,01/2010,05/06/2009,05/28/2008, 7,04/26/2006,05/30/2003,06/04/2002 Seasonal Influenza, Quadriva lent Hd (Fluzone Hd) [...] encounter Miscellaneous Notes * Telephone Encounter - Percy Gibbs PA-C - 06/21/2023 12:28 PM ESTSigned Prescriptions: Disp Refills Famotidine 20 MG Oral Tablet (Pepcid) 180 Ta*3 Sig: TAKE ONE TABLET BY MOUTH TWICE A DAY Authorizing Provider: PERCY GIBBS * Telephone Encounter - Loly Pan COT - 06/21/2023 10:25 AM ESTPending Prescriptions: Disp Refills Famotidine 20 MG Oral Tablet (Pepcid) 180 Ta*3 Sig: TAKE ONE TABLET BY MOUTH TWICE A DAY * Telephone Encounter - Loly Pan COT - 06/21/2023 10:25 AM EST Did you pend patient's preferred pharmacy and medication before forwarding?yes Pharmacy: [id number] Pending Prescriptions: Disp Refills Famotidine 20 MG Oral Tablet (Pepcid) 180 Ta*3 Sig: TAKE ONE TABLET BY MOUTH TWICE A DAY Last Visit: 05/26/2023 (in office), Visit date not found (telemedicine) Next Visit: Visit date not found If no future appointments scheduled, and last appointment is greater than a year ago, please schedule patient for a follow-up appointment Last date the medication was ordered: 01-19-2022 Is this request for a controlled substance?No Urine Drug Screen:No results found. However, due to the size of the patient record, not all encounters were searched. Please check Results Review for a complete set of results. Patient Phone Numbers Labs: Lab Results Component Value Date/Time CREAT 1.1 02/22/2023 10:09 AM CREAT 0.92 12/06/2020 12:00 AM CREAT 1.0 04/30/2020 09:46 AM POTASSIUM 4.3 02/22/2023 10:09 AM POTASSIUM 3.4 (A) 12/06/2020 12:00 AM POTASSIUM 3.8 04/30/2020 09:46 AM TSH 0.73 06/14/2022 12:49 PM TSH 1.08 09/11/2019 09:32 AM LDLCALC 93 01/13/2022 08:57 AM LDLCALC 66 07/27/2019 11:19 AM LDLDIRECT 65 06/14/2022 12:49 PM LDLDIRECT NOT APPLICABLE 07/27/2019 11:19 AM ALT 33 12/02/2022 09:00 AM ALT 13 10/03/2019 12:27 PM HGBA1C 5.2 07/13/2019 06:42 PM documented in this encounter Plan of Treatment Upcoming Encounters Date Type Department Care Team (Late st Contact Info) Description 08/17/2023 2:00 PM EST Office Visit Pulmonary Medicine, [place] [address] [place] [address] Macrina Bhat MD [address] [place] [address] 08/19/2023 9:40 AM EST Office Visit General Internal Medicine [facility] [address] [place] [address] Donn Clarke MD [address] [facility] [place] [address] 11/25/2023 10:00 AM EDT Office Visit Cardiology, [facility] [address] [facility] [place] [address] Percy Gibbs PA-C [address] [facility] [address] 12/08/2023 3:30 PM EDT Office Visit Dermatology [facility] [address] [place] [address] Ama Galvez MD [address] [place] [place] [address] 02/15/2024 10:00 AM EDT Laboratory Laboratory, [facility] [place] [phone] [facility] [address] [facility] [place] [address] 02/22/2024 2:30 PM EDT Office Visit Hematology/Oncology [facility] [address] [place] [address] Smita Miller MD [address] [place] [address] 03/26/2024 10:30 AM EDT Nurse Only Ancillary Srinath Hernandez [place] [address] [place] [address] David Nurse Annual Wellness [facility] [address] [place] [address] Scheduled Procedures Name Priority Associated Diagnoses Date/Ti me COLONOSCOPY FLEXIBLE PROXIMAL DIAGNOSTIC Recall History of colon polyps Health Maintenance Due Date Last Done Comments DXA Scan 01/27/2023 01/28/2020, 03/13/2008 TSH 06/14/2023 06/14/2022, 02/2022, 10/29/2020, Additional history exists DTaP,Tdap,and Td [...] this encounter Medical Devices Implanted Type Area Xerox Machine Mechanic Device Identifier Shelf Expiration Date Model / Serial / Lot Jenna Smart .6x4.25 [id number] - [id number] Implanted:Qty : 1 on 06/26/2013 at OR [facility] Left: Ear GYRUS : ENT 05/17/2022 [id number] / / [id number] Suture Steel 6 B&S19 M654g - [id number] Implanted:Qty : 4 on 07/14/2019 by Genesis Rea MD at OR [facility] N/A: Sternum JNJ : [employer] 03/17/2024 [id number] / / [id number] documented as of this encounter Visit Diagnoses Diagnosis Gastroesophageal reflux disease Esophageal reflux documented in this encounter Advance Directives Latest [...] and were consensually agreed upon. Care Teams Pension Adviser Relationship Specialty Start Date End Date Donn Clarke MD [address] [place] [address] PCP - General Internal Medicine 12/17/15 documented as of this encounter
--- OUTSIDE RECORDS SUMMARY | 2023-11-25 09:29 | External Medical Summary | Summary of Care ---
Author Name Unknown Organization [facility] Address [address] [place] [address] Phone [phone] Care Team Providers Care Pattern Attendant Name Role Phone Donn Clarke MD Primary Care Provider + Reason for Visit * Reason Comments Follow Up Return visit. Has a lot of mucus. Now has smart vest, bid for 30 minutes each. Encounter Details Date Type Department Care Team (Latest Contact Info) Description 05/11/2023 1:30 PM EDT Office Visit Pulmonary Medicine, [facility] [address] [place] [address] Macrina Bhat MD [address] [place] [address] Bronchiectasis without complication (HCC)* Allergies Active Allergy Reactions Criticality Noted Date Comments Lorazepam Low 07/27/2019 Codeine Nausea/vomiting Low 10/31/2018 Pollen Wheezing,Cough Low 11/30/2016 documented as of this encounter (statuses as of 06/20/2023) Medications Medication Sig Dispensed Refills Start Date [...] coated 81 MG TBECIndications:Donell nary atherosclerosis of manzan[place] coronary artery Take 2 Tabs by mouth [...] mouth in the morning. 100 Tablet 3 2 Active Fluorouracil 5 % External Cream (Efudex)Indications: Actinic keratosis apply to affected areas of face/scalp nightly for 2-3 weeks 40 g 1 3 Active Ipratropium [place] 0.06 % Nasal Solution (Atrovent) PLEASE SEE ATTACHED FOR DETAILED DIRECTIONS 0 3 Active Spironolactone 25 MG Oral Tablet [...] 45 mL 3 3 01/14/20 24 Active Levothyroxine Sodium 150 MCG Oral Tablet (Levoxyl)Indications :Congenital hypothyroidism without goiter TAKE ONE TABLET BY MOUTH ON TUESDAY, TUESDAY, AND TUESDAY ONLY 45 Tablet 1 3 12/24/19 24 Active Tamsulosin HCl 0.4 MG Oral Capsule (Flomax)Indications: BPH without obstruction/lower urinary tract symptoms TAKE ONE CAPSULE BY MOUTH AT BEDTIME 90 Capsule 2 3 12/10/19 24 Active Verapamil HCl ER 120 MG Oral Tablet Extended Release (Isoptin SR)Indications:Coron myra atherosclerosis of manzanita coronary artery,PAF (paroxysmal atrial fibrillation) (HCC),HTN, goal [...] AT BEDTIME 90 Tablet 1 3 Active Triamcinolone Acetonide 55 MCG/ACT AEROIndications:Othe r chronic sinusitis Administer 1 Moriches into nostril 2 times a day as needed. 0 9 05/11/20 23 Discontinue d(Discharge d) Vicks NyQuil Cold & Flu Night 15-6.25-325 MG/15ML Oral Liquid (EH-Pbrdlsqhfl-Zarky minophen) Take by mouth. 0 05/11/20 Discontinue d(Discharge d) Atorvastatin Calcium 80 MG Oral Tablet (Lipitor) TAKE ONE TABLET BY MOUTH EVERY DAY 90 Tablet 1 3 05/24/20 Discontinue d(Refill) Ipratropium-Albutero l 0.5-2.5 (3) MG/3ML Inhalation Solution (Duoneb)Indications: ALEXANDER (dyspnea on exertion),Acute cough INHALE THE CONTENTS OF ONE VIAL VIA NEBULIZER EVERY 4 HOURS NEEDED FOR SHORTNESS OF BREATH AND OR WHEEZING 540 mL 3 3 06/13/20 23 Discontinue d(Refill) Famotidine 20 MG Oral Tablet (Pepcid)Indications: Gastroesophageal reflux disease TAKE ONE TABLET BY MOUTH TWICE A DAY 180 Tablet 3 2 05/26/20 Additional Information Patient taking differently: 20 mg Oral DAILY(1900), Indications: acid reflux, Reported on 11/10/2022 Hospital, Clinic, or Other Facility Administered Medication Ordered Dose Route Frequency Start Date End Date Status methacholine (0 mg/mL) PLACEBO (Provocholine) inhalation solution 3 mLIndications:Shortness of breath 3 mL IN ONCE PRN 07/14/2022 Active Albuterol Sulfate (Proventil) (5 MG/ML) 0.5% *conc* inhalation solution 2.5 mgIndications:Moderate persistent asthma with acute exacerbation 2.5 mg NEBULIZER PRN 06/07/2022 06/07/2023 Ended Albuterol Sulfate (Proventil) (2.5 MG/3ML) 0.083% inhalation solution 2.5 mgIndications:Moderate persistent asthma with acute exacerbation 2.5 mg NEBULIZER PRN 06/07/2022 06/07/2023 Ended Albuterol Sulfate (Proventil) (2.5 MG/3ML) 0.083% inhalation solution 2.5 mgIndications:Bronchiec tasis without complication (HCC) 2.5 mg NEBULIZER ONCE 05/11/2023 05/12/2023 Ended documented as of this encounter (statuses as of 06/20/2023) Active Problems Problem Noted Date Diagnosed Date [...] single drug-eluting stent (3.0 x 15 mm Winston). 3. 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, Hx melanoma in 2005, 0.56 mm on the Right neck; also hx MIS right midback 02/2014; L lower eyelid MIS 02/2018 Coronary atherosclerosis of manzanita coronary estella ry 05/16/2007 BPH without obstruction/lower urinary tract symp toms 08/03/2002 Chronic rhinitis 08/03/2002 documented as of this encounter (statuses as of 06/20/2023) Resolved Problems Problem Noted Date Diagnosed Date [...] recommend f/u 3 years [employer] Other*[id number] 06/05/2007 08/24/2016 Overview: Study Title: Genomic Markers for Patients with Cardiovascular Disease Project # [id number] Customs Opener Verifier Packer: Aretha Rodríguez MD [phone] Coronary atherosclerosis of manzanita coronary artery 05/16/2007 07/27/2019 ADVANCE DIRECTIVE INFORMATION [...] as of this encounter (statuses as of 06/20/2023) Immunizations Name Administration Dates Next Due COVID-19 mRNA, LNP-s, No Pre serve, 2-Dose Series (Pfizer) 10/21/2021,04/20/2021,09/23/2020,08/25 Pneumococcal Conjugate Vacc, 13 Valent (Prevnar) [...] Sign Reading Time Taken Comments Blood Pressure 121/59 05/11/2023 1:31 PM EDT Pulse 80 05/11/2023 1:31 PM EDT Temperature 36.9 C (98.4 F) 05/11/2023 1:31 PM ED T Respiratory Rate 20 05/11/2023 1:31 PM EDT Oxygen Saturation 96% 05/11/2023 1:31 PM EDT RA Inhaled Oxygen Concentration - - Weight 87.4 kg (192 lb 11.2 oz) 05/11/2023 1:31 PM EDT Height - - Body Mass Index 28.46 03/23/2023 10:01 AM EDT documented in this [...] as of this encounter Progress Notes * Parminder Roth MD - 05/11/2023 3:29 PM EDT I have discussed the patient's management with the medical trainee and agree with the note. Please refer to the documented findings and plan of care. This patient's visit today consisted of an evaluation. I was present and confirmed the findings of the history and exam. Assessment 1. Chronic cough 2. Bilateral lower lobe predominant bronchiectasis with no evidence of exacerbation 3. Postnasal drip on background of chronic sinusitis and deviated nasal septum Plan 1. I had a lengthy discussion with the patient and his family regarding pathophysiology of bronchiectasis and principles of management of same. Patient has cough with productive sputum however does not have fevers chills or night sweats. I went over importance of aggressive pulmonary toilet with aerobic exercise, smart vest, scheduled nebulizer use. 2. We will obtain sputum for cultures including AFB. 3. Repeat CT chest to be performed in April for follow-up of lung nodules I spent a total of 45 minutes of clinical care time on the date of service; in preparation, delivery, and documentation of the care provided to the patient, excluding any time spent on the performance of any procedure or separately billable services. Parminder Roth MD documented in this encounter Nursing Notes * Jenn Prsesley RRT - 05/11/2023 2:37 PM EDT Patient identified by name and date of . 2.5 mg albuterol nebulizer given. Breath sounds were coarse and slight inspiratory wheezes. Pt coughed a lot thru entire breathing treatment . Pt coughed up copious thick white secretions that were collected and sent to the lab. documented in this encounter Plan of Treatment Upcoming Encounters Date Type Department Care Team (Late st Contact Info) Description 08/17/2023 2:00 PM EST Office Visit Pulmonary Medicine, [facility] [address] [place] [address] Macrina Bhat MD [address] [place] [address] 08/19/2023 9:40 AM EST Office Visit General Internal Medicine [facility] [address] [facility] [place] [address] Donn Clarke MD 200 [facility] [place] [address] 11/25/2023 10:00 AM EDT Office Visit Cardiology, [facility] [address] [place] [address] Jonnathan Song PA-C 132 [place] [address] 12/08/2023 3:30 PM EDT Office Visit Dermatology [facility] [address] [facility] [place] [address] Ama Galvez MD 200 [facility] [place] [address] 02/15/2024 10:00 AM EDT Laboratory [facility], [facility] [id number] [facility] [address] 02/22/2024 2:30 PM EDT Office Visit Hematology/Oncology [facility] E[facility] [place] [address] [facility] [place] [address] Smita Miller MD 200 [facility] [place] [address] 03/26/2024 10:30 AM EDT Nurse Only Ancillary [facility] [place] [address] [facility] [place] [address] [facility], Nurse Annual Wellness [facility] [address] [facility] [place] [address] Pending Results Name Type Priority Associated Diagnoses Date /Time CULTURE, AFB Lab Routine Bronchiectasis without complication (HCC) 05/11/2023 2:42 PM EDT Scheduled Procedures Name Priority Associated Diagnoses [...] encounter Medical Devices Implanted Type Area Director Of Vocational Training Device Identifier Shelf Expiration Date Model / Serial / Lot Jenna Smart .6x4.25 [id number] - [id number] Implanted:Qty : 1 on 06[place]26/2013 [place] [facility] [place]: Ear GYRUS : ENT 05/17/2022 [id number] / / [id number] Suture Steel 6 B&S19 M654g - [id number] Implanted:Qty : 4 on 07/14/2019 by Genesis Rea MD [place] [facility] [place] N/A: Sternum JNJ : [employer] 03/17/2024 [id number] / / [id number] documented as of this encounter Procedures Procedure Name Priority Date/Time Associated Diagnosis Comments CULTURE, RESPIRATORY, LOWER, AEROBIC Routine 05/11/2023 2:42 PM EDT Bronchiectasis without complication (HCC) CULTURE, AFB Routine 05/11/2023 2:42 PM EDT Bronchiectasis without complication (HCC) CULTURE,FUNGUS,NON -DERM Routine 05/11/2023 2:42 PM EDT Bronchiectasis without complication (HCC) documented in this encounter Results * (ABNORMAL) CULTURE,FUNGUS,NON-DERM (05/11/2023 2:42 PM EDT) Culture Growth Lore albicans(A) 06/03/2023 1:08 PM EST [facility] Stain Description No yeast or hyphae seen. 06/03/2023 1:08 PM EST [facility] Body Fluid Sputum specimen / Unknown Non-blood Collection / Unknown 05/11/2023 2:42 PM EDT 05/11/2023 3:43 PM EDT Macrina Bhat MD LAB MICRO - GENERAL ORDERABLES [facility] [address] [place] [address] * CULTURE, RESPIRATORY, LOWER, AEROBIC (05/11/2023 2:42 PM EDT) Culture Growth Specimen unsatisfactory. Not tested. 05/11/2023 5:39 PM EDT [facility] Stain Description Specimen contaminated with epithelial cells floor representative of oropharyngeal contamination. Further processing may yield potentially misleading results. 05/11/2023 5:39 PM EDT LAB[facility] Lower Respiratory Sputum specimen / Unknown Non-blood Collection / Unknown 05/11/2023 2:42 PM EDT 05/11/2023 3:22 PM EDT Macrina Bhat MD LAB MICRO - GENERAL ORDERABLES Performing Organization Address City/[facility] Co de Phone Number LAB[facility]ATORY [facility] [address] [place] [address] documented in this encounter Visit Diagnoses Diagnosis Bronchiectasis without complication (HCC)- Primary Bronchiectasis without acute exacerbation documented in this encounter Administered Medications Inactive Administered Medications - up to 3 most recent administrations Medication Order MAR Action Action Date Dose Rate Site Albuterol Sulfate (Proventil) (2.5 MG/3ML) 0.083% inhalation solution 2.5 mg 2.5 mg, Nebulizer, PRN Other, ONCE FOR PFT, Starting on Tue06/07/22 at 1505, Until Tue06/07/23 at 1504, For 365 days Given 05/11/2023 2:36 PM EDT 2.5 mg documented in this encounter Advance Directives Latest [...] and were consensually agreed upon. Care Teams Pattern Attendant Relationship Specialty Start Date End Date Donn Clarke MD [address] [place] [address] PCP - General Internal Medicine 12/17/15 documented as of this encounter
--- OUTSIDE RECORDS SUMMARY | 2023-11-25 09:29 | External Medical Summary | Summary of Care ---
Author Name Unknown Organization [facility] Address [address] [place] [address] Phone [phone] Care Team Providers Care Steam Drier Operator Name Role Phone Donn Clarke MD Primary Care Provider + Reason for Visit * Reason Comments Medication Refill Encounter Details Date Type Department Care Team (Late st Contact Info) Description 06/13/2023 Refill General Internal Medicine [facility] [address] [place] [address] Donn Clarke MD [address] [place] [address] ALEXANDER (dyspnea on exertion); Acute cough Allergies Active Allergy Reactions Criticality Noted Date Comments Lorazepam Low 07/27/2019 Codeine Nausea/vomiting Low 10/31/2018 Pollen Wheezing,Cough Low 11/30/2016 documented as of this encounter (statuses as of 06/14/2023) Medications Medication Sig Dispensed Refills Start Date [...] Active aspirin enteric coated 81 MG TBECIndications:Donell vesta atherosclerosis of [place]ot[place] coronary artery Take 2 Tabs by mouth [...] weeks 40 g 1 10/03/2022 Active Ipratropium Index 0.06 % Nasal Solution (Atrovent) PLEASE SEE [...] 45 mL 3 01/14/2023 01/14/20 24 Active Levothyroxine Sodium 150 MCG Oral Tablet (Levoxyl)Indications :Congenital hypothyroidism without goiter TAKE ONE TABLET BY MOUTH ON TUESDAY, TUESDAY, AND TUESDAY ONLY 45 Tablet 1 2022 12/24/19 24 Active Tamsulosin HCl 0.4 MG Oral Capsule (Flomax)Indications: BPH without obstruction/lower urinary tract symptoms TAKE ONE CAPSULE BY MOUTH AT BEDTIME 90 Capsule 2 12/10/2022 12/10/19 24 Active Verapamil HCl ER 120 MG Oral Tablet Extended Release (Isoptin SR)Indications:Coron myra atherosclerosis of kot[place] coronary artery,PAF (paroxysmal atrial fibrillation) (HCC),HTN, goal below 140/90 TAKE ONE TABLET BY MOUTH EVERY MORNING 90 Tablet 4 12/02/2022 12/02/19 24 Active Fluticasone-Salmeter ol 500-50 MCG/ACT Inhalation Aerosol Powder Breath Activated (Advair Diskus) INHALE ONE PUFF BY MOUTH EVERY MORNING AND ONE PUFF BEFORE BEDTIME 60 Each 12 08/29/2022 08/29/19 24 Active Additional Information Patient taking differently:1 [...] 1620 mL 0 06/14/2023 06/13/20 24 Active Ipratropium-Albutero l 0.5-2.5 (3) MG/3ML Inhalation Solution (Duoneb)Indications: ALEXANDER (dyspnea on exertion),Acute cough INHALE THE CONTENTS OF ONE VIAL VIA NEBULIZER EVERY 4 HOURS NEEDED FOR SHORTNESS OF BREATH AND OR WHEEZING 540 mL 3 11/18/2022 06/13/20 23 Discontinu ed(Refill) Hospital, Clinic, or Other Facility Administered Medication Ordered Dose Route Frequency Start Date End Date Status methacholine (0 mg/mL) PLACEBO (Provocholine) inhalation solution 3 mLIndications:Shortness of breath 3 mL IN ONCE PRN 07/14/2022 Active documented as of this encounter (statuses as of 06/14/2023) Active Problems Problem Noted Date Diagnosed Date [...] single drug-eluting stent (3.0 x 15 mm Piercy). 3. Successful PCI of ostial to mid LAD with 2 overlapping drug-eluting stents (3.0 x 34, 2.5 x 12 mm Piercy). History of prostate cancer 12/01/2017 History of pulmonary embolism 06/02/2017 Hx of actinic keratosis 09/03/2016 Beta-blockers contraindicated 10/17/2014 Overview: HR controlled Pancreatic duct dilated 07/26/2012 Asthma, moderate persistent 02/10/2011 HTN, goal below 140/90 01/21/2010 HX-SKIN MALIGNANCY NEC - multiple BCC 09/29/2009 Overview: BCCs: -2006 L neck -2006 L ala, R flank, L cheek, midback -2007 L upper back, R deltoid -2011 R nondenominational -2012 R temporal scalp -02/2014 BCC L chest -11/2018 BCC R medrano upper HX-MALIG SKIN MELANOMA - 2005 0.56 R post. 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, Hx melanoma in 2005, 0.56 mm on the Right neck; also hx MIS right midback 02/2014; L lower eyelid MIS 02/2018 Coronary atherosclerosis of [place]ot[place] coronary estella ry 05/16/2007 BPH without obstruction/lower urinary tract symp toms 08/03/2002 Chronic rhinitis 08/03/2002 documented as of this encounter (statuses as of 06/14/2023) Resolved Problems Problem Noted Date Diagnosed Date [...] recommend f/u 3 years [employer] Other*[id number] 06/05/2007 08/24/2016 Overview: Study Title: Genomic Markers for Patients with Cardiovascular Disease Project # [id number] Police Inspector: Aretha Rodríguez MD [phone] Coronary atherosclerosis of kot[place] coronary artery 05/16/2007 07/27/2019 ADVANCE DIRECTIVE INFORMATION [...] as of this encounter (statuses as of 06/14/2023) Immunizations Name Administration Dates Next Due COVID-19 mRNA, LNP-s, No Pre serve, 2-Dose Series (ttwick) 10/21/2021,04/20/2021,09/23/2020,08/25 Pneumococcal Conjugate Vacc, 13 Valent (Prevnar) [...] encounter Miscellaneous Notes * Telephone Encounter - Levi Sloan RPh - 06/14/2023 4:39 AM ESTSigned Prescriptions: Disp Refills Ipratropium-Albuterol 0.5-2.5 (3) MG/3ML I*1620 mL0 Sig: INHALE THE CONTENTS OF ONE VIAL VIA NEBULIZER EVERY 4 HOURS NEEDED FOR SHORTNESS OF BREATH AND OR WHEEZINGAuthorizing Provider: DONN CLARKE User: LEVI SLOAN documented in this encounter Plan of Treatment Upcoming Encounters Date Type Department Care Team (Late st Contact Info) Description 07/06/2023 2:00 PM EST Office Visit Otolaryngology/Head & Neck/Facial Plastic Surgery [address] [facility] [place] [id number] Francois Mae MD [address] [place] [address] 08/17/2023 2:00 PM EST Office Visit Pulmonary Medicine, [place] [address] [place] [address] Macrina Bhat MD [address] [place] [address] 08/19/2023 9:40 AM EST Office Visit General Internal Medicine [facility] [address] [place] [address] Donn Clarke MD [address] [place] [address] 11/25/2023 10:00 AM EDT Office Visit Card[facility], [facility] [address] [facility] [place] [address] Jonnathan Song PA-C [facility] [place] [address] 12/08/2023 3:30 PM EDT Office Visit Dermatology [facility] [address] [place] [address] Ama Galvez MD [address] [place] [address] 02/15/2024 10:00 AM EDT Laboratory Laboratory, [facility] [address] [facility] [place] [id number] Paulette Hernandez [facility] [address] [facility] [place] [address] 02/22/2024 2:30 PM EDT Office Visit Hematology/Oncology [facility] [address] [place] [address] Smita Miller MD [address] [place] [address] 03/26/2024 10:30 AM EDT Nurse Only [facility] [place] [address] [place], Nurse Annual Wellness [facility] 132 [facility] [place] [address] Scheduled Procedures Name Priority Associated Diagnoses Date/Ti [...] this encounter Medical Devices Implanted Type Area Fine Patcher Device Identifier Shelf Expiration Date Model / Serial / Lot Jenna Morgan .6x4.25 [id number] - [id number] Implanted:Qty : 1 on 06/26/2013 [place] [facility] [place]: Ear GYRUS : ENT 05/17/2022 [id number] / / [id number] Suture Steel 6 B&S19 M654g - [id number] Implanted:Qty : 4 on 07/14/2019 by Genesis Rea MD [place] [facility] [place] N/A: Sternum JNJ : [employer] 03/17/2024 [id number] / / [id number] documented as of this encounter Visit Diagnoses Diagnosis ALEXANDER (dyspnea on exertion) Other dyspnea and respiratory abnormality Acute cough documented in this encounter Advance Directives Latest [...] and were consensually agreed upon. Care Teams Steam Drier Operator Relationship Specialty Start Date End Date Donn Clarke MD [address] [facility] [place] [address] PCP - General Internal Medicine 12/17/15 documented as of this encounter
--- OUTSIDE RECORDS SUMMARY | 2023-11-25 09:29 | External Medical Summary | Summary of Care ---
Author Name Unknown Organization [facility] Address [address] [place] [address] Phone [phone] Care Team Providers Care Communications Tech Name Role Phone Donn Clarke MD Primary Care Provider + Reason for Visit * Reason Comments Medication Refill Encounter Details Date Type Department Care Team (Late st Contact Info) Description 07/06/2023 Refill General Internal Medicine [facility] [address] [place] [address] Percy Song, PA-C [address] [place] [address] HTN, goal below 140/90 Allergies Active Allergy [...] coated 81 MG TBECIndications:Coron myra atherosclerosis of sioux coronary artery Take 2 Tabs by mouth [...] weeks 40 g 1 10/03/2022 Active Ipratropium [place] 0.06 % Nasal Solution (Atrovent) PLEASE SEE [...] Extended Release (Isoptin SR)Indications:[place] ry atherosclerosis of sioux coronary artery,PAF (paroxysmal atrial fibrillation) (HCC),HTN, goal [...] MG Oral Tablet (Zoloft)Indications:M oderate major depression ([facility]) TAKE ONE TABLET BY MOUTH EVERY DAY [...] DAY 100 Tablet 3 07/06/2023 4 Active Hospital, Clinic, or Other Facility Administered [...] lower eyelid MIS 02/2018 Coronary atherosclerosis of sioux coronary estella ry 05/16/2007 BPH without obstruction/lower [...] recommend f/u 3 years [employer] Other*[id number] 06/05/2007 08/24/2016 Overview: Study Title: Genomic Markers for Patients with Cardiovascular Disease Project # [id number] Tube Buffer: Aretha Rodríguez MD [phone] Coronary atherosclerosis of sioux coronary artery 05/16/2007 07/27/2019 ADVANCE DIRECTIVE INFORMATION [...] mRNA, LNP-s, No Pre serve, 2-Dose Series (IMVU) 10/21/2021,04/20/2021,09/23/2020,08/25 Pneumococcal Conjugate Vacc, 13 Valent (Prevnar) [...] Miscellaneous Notes * Telephone Encounter - Percy Song PA-C - 07/06/2023 2:00 PM ESTSigned Prescriptions: Disp Refills Losartan Potassium 100 MG Oral Tablet (Coz*100 Ta*3 Sig: TAKE ONE TABLET BY MOUTH EVERY DAYAuthorizing Provider: PERCY SONG documented in this encounter Plan of Treatment Upcoming Encounters Date Type Department Care Team (Late st Contact Info) Description 08/17/2023 2:00 PM EST Office Visit Pulmonary Medicine, [place] [address] [place], [place] [id number] Macrina Bhat MD [address] [facility] [place] [id number] 08/19/2023 9:40 AM EST Office Visit General Internal Medicine [facility] [address] [place], [place] [address] Donn Clarke MD 200 [facility] [place] [address] 11/25/2023 10:00 AM EDT Office Visit Cardiology, [facility] [address] Percy Song PA-Mary [facility] [address] 12/08/2023 3:30 PM EDT Office Visit Dermatology [facility] [place] [address] Ama Galvez MD 200 [facility] [place] [address] 02/15/2024 10:00 AM EDT Laboratory Laboratory, [facility] [phone] David Lab [facility] [address] 02/22/2024 2:30 PM EDT Office Visit Hematology/Oncology [facility] 200 [facility] [place] [address] Smita Miller MD 200 [place] [address] 03/26/2024 10:30 AM EDT Nurse Only Ancillary [facility] 132 [facility] [place] [address] David, Nurse Annual Wellness [facility] [address] Scheduled Procedures Name Priority Associated Diagnoses Date/Ti [...] this encounter Medical Devices Implanted Type Area Curtain Worker Device Identifier Shelf Expiration Date Model / Serial / Lot Jenna Smart .6x4.25 [id number] - [id number] Implanted:Qty : 1 on 06/26/2013 [place] [facility] [place]: Ear GYRUS : ENT 05/17/2022 [id number] / / [id number] Suture Steel 6 B&S19 M654g - [id number] Implanted:Qty : 4 on 07/14/2019 by Genesis Rea MD [place] [facility] [place] N/A: Sternum JNJ : [employer] 03/17/2024 [id number] / / [id number] documented as of this encounter Visit Diagnoses [...] and were consensually agreed upon. Care Teams Communications Tech Relationship Specialty Start Date End Date Donn Clarke MD [address] [place] [address] PCP - General Internal Medicine 12/17/15 documented as of this encounter
--- OUTSIDE RECORDS SUMMARY | 2023-11-25 09:29 | External Medical Summary | Summary of Care ---
Author Name Unknown Organization [facility] Address [address] [place] [address] Phone [phone] Care Team Providers Care Imcu Nurse Name Role Phone Donn Clarke MD Primary Care Provider + Reason for Visit * Reason Onset Date Comments Test Results 08/16/2023 Encounter Details Date Type Department Care Team (Late st Contact Info) Description 08/16/2023 Telephone Cardiology, [facility] [address] [facility] [place] [address] Jonnathan Song PA-C [address] [place] [address] Test Results Allergies Active Allergy Reactions Criticality [...] coated 81 MG TBECIndications:Coron myra atherosclerosis of [place] coronary artery Take 2 Tabs by mouth [...] weeks 40 g 1 10/03/2022 Active Ipratropium [place] 0.06 % Nasal Solution (Atrovent) PLEASE SEE [...] Extended Release (Isoptin SR)Indications:[place] ry atherosclerosis of [place] coronary artery,PAF (paroxysmal atrial fibrillation) (HCC),HTN, goal [...] MG Oral Tablet (Zoloft)Indications:M oderate major depression ([facility]) TAKE ONE TABLET BY MOUTH EVERY DAY [...] L upper back, R deltoid -2011 R yazdanism -2012 R temporal scalp -02/2014 BCC L chest -11/2018 BCC R medrano upper HX-MALIG SKIN MELANOMA - 2005 0.56 R post. 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, Hx melanoma in 2005, 0.56 mm on the Right neck; also hx MIS right midback 02/2014; L lower eyelid MIS 02/2018 Coronary atherosclerosis of [place] coronary estella ry 05/16/2007 BPH without obstruction/lower [...] recommend f/u 3 years [employer] Other*[id number] 06/05/2007 08/24/2016 Overview: Study Title: Genomic Markers for Patients with Cardiovascular Disease Project # [id number] Director Of Online Education: Aretha Rodríguez MD [phone] Coronary atherosclerosis of [place] coronary artery 05/16/2007 07/27/2019 ADVANCE DIRECTIVE INFORMATION [...] mRNA, LNP-s, No Pre serve, 2-Dose Series ([employer]) 10/21/2021,04/20/2021,09/23/2020,08/25 Pneumococcal Conjugate Vacc, 13 Valent (Prevnar) [...] encounter Miscellaneous Notes * Telephone Encounter - Mirna Rizvi CMA - 08/16/2023 10:55 AM EST My g sent. * Telephone Encounter - Mirna Rizvi CMA - 08/16/2023 10:53 AM EST ----- Message from Jonnathan Song PA-C sent at 08/16/2023 7:49 AM EST ----- August 15, 2023 TTE Interpretation Summary (as per Dr. Bowie): The left ventricular cavity size isrelatively small The LV wall thickness is moderately increased (concentric). The left ventricular wall motion is normal. The qualitative LV ejection fraction is 60-64% (normal). The left ventricular diastolic function is mildly abnormal (grade I). The aortic valve has three leaflets. The aortic valve is mildly calcified. Aortic stenosis is absent. Mild tricuspid regurgitation is present. There is no evidence of pu lmonary hypertension. In comparison to June 25, 2022, no significant change Echo findings are stable/unchanged compared to June 2022. [place] documented in this encounter Plan of Treatment Upcoming Encounters Date Type Department Care Team (Late st Contact Info) Description 08/17/2023 2:00 PM EST Office Visit Pulmonary Medicine, [place] [address] [place] [address] Macrina Bhat MD [address] [place] [address] 08/19/2023 9:40 AM EST Office Visit General Internal Medicine [facility] [address] [place] [address] Donn Clarke MD 200 [place] [address] 11/25/2023 10:00 AM EDT Office Visit Cardiology, [facility] 132 [facility] [place] [address] Jonnathan Song PA-C 132 [facility] [place] [address] 12/08/2023 3:30 PM EDT Office Visit Dermatology [facility] [address] [place] [address] Ama Galvez MD 200 [place] [address] 12/09/2023 11:30 AM EDT Office Visit Otolaryngology/Head & Neck/Facial Plastic Surgery [address] [place] [facility] [address] Francois Mae MD [address] [place] [address] 02/15/2024 10:00 AM EDT Laboratory Laboratory, [facility] [place] [phone] Paulette Hernandez 132 [facility] [place] [address] 02/22/2024 2:30 PM EDT Office Visit Hematology/Oncology [facility] [place] [address] [place] [address] Smita Miller MD [address] [place] [address] 03/26/2024 10:30 AM EDT Nurse Only Ancillary [facility] [place] 132 [facility] [place] [address] Nurse David Annual Wellness [facility] 132 [facility] [place] [address] Scheduled Procedures Name Priority Associated Diagnoses Date/Ti [...] this encounter Medical Devices Implanted Type Area Cake Mixer Device Identifier Shelf Expiration Date Model / Serial / Lot Ildefonsoton Smart .6x4.25 [id number] - [id number] [place]ed:Q[place] : 1 [place] 06[place] [facility] [place] Ear GYRUS : ENT 05/17/2022 [id number] / / [id number] Suture Steel 6 B&S19 M654g - [id number] Implanted:Qty : 4 on 07/14/2019 by Genesis Re[place] [facility] [place]/A: Sternum JNJ : [employer] 03/17/2024 [id number] / / [id number] documented as of this encounter Advance Directives [...] and were consensually agreed upon. Care Teams Imcu Nurse Relationship Specialty Start Date End Date Donn Clarke MD 200 [facility] [place] [address] PCP - General Internal Medicine 12/17/15 documented as of this encounter
[2023-11-25] MEDS: FLUTICASONE/VILANTEROL 200/25MCG 14 PUFFS/INHALER INH SCH (09:48)
[2023-11-25] MEDS: methylPREDNISolone 40 MG in SYRINGE 0 ML IV SCH (09:49)
[2023-11-25] MEDS: UMECLIDINIUM BROMIDE 62.5MCG/BLISTER 7 PUFFS/INHALER INH SCH (09:50)
[2023-11-25] MEDS: guaiFENesin 600 MG TABCR PO SCH (09:51)
[2023-11-25] MEDS: DOXYCYCLINE HYCLATE 100 MG in DEXTROSE 5% MINI-B 100 ML IV SCH (09:51)
--- NOTE | 2023-11-25 11:00 | Fluoroscopy Report ---
FL video swallow CLINICAL HISTORY: RLL infiltrative process w/ suspicion for aspirati TECHNIQUE: Video fluoroscopy of the pharyngeal region was performed as barium mixtures of varying con sistencies were administered to the patient by the speech pathologist. A formal esophagram was not pe rformed. Comparison: None available at the time of this dictation. FINDINGS: Total fluoroscopy time: 50 seconds. Radiation dose: 3.72 mGy. The patient swallowed the different barium consistencies without difficulty. There was no laryngeal v estibular penetration or alina tracheal aspiration. Pooling of barium was noted in the bilateral piri form sinuses and valleculae. Retention of contrast in the esophagus is noted. IMPRESSION: No evidence of aspiration. Please see the speech pathology report for further details. ACT 112: Negative or not required by law. Electronically signed by: Suraj Shane M.D. 11/25/2023 10:58 AM
--- NOTE | 2023-11-25 11:11 | CT Scan Report ---
CT chest diagnostic wo con CT DOSE: 487.19 mGy.cm HISTORY: Right lower lobe infiltrate, worsening s/s of bronchiectasis TECHNIQUE: Multiaxial CT images of the chest were performed without contrast. A dose lowering techni que was utilized adhering to the principles of ALARA. COMPARISON: Chest x-ray 11/24/2023. Chest CTA 05/26/2022. FINDINGS: Bibasilar bronchial wall thickening most pronounced within the lower lobes with a few parti ally opacified distal bilateral lobe bronchi. There is also reticulonodular interstitial thickening w ith small patchy airspace opacities within the lung bases most pronounced within the lower lobes. Thi s is consistent with a pneumonia and could be due to prior aspiration. Mild emphysema is noted. No pn eumothorax. There are additional small focal groundglass airspace opacities within the right upper lo be posteriorly which also favor a component of the suspected pneumonitis. There are poststernotomy ch anges. No acute fractures identified. Limited views of the upper abdomen demonstrate a normal spleen and adrenal glands. Stable 1 cm hypodense lesion within the left hepatic dome. This favors a cyst. Th e left hepatic lobe is atrophic, unchanged. Prior cholecystectomy. Normal esophagus. The heart is top normal in size. Calcified plaque within the normal caliber thoracic aorta. Stable prominent mediasti nal and hilar lymph nodes. These are likely benign. IMPRESSION: Bibasilar bronchial wall thickening most pronounced within the lower lobes with a few partially opaci fied distal bilateral lobe bronchi. There is also reticulonodular interstitial thickening with small patchy airspace opacities within the lung bases most pronounced within the lower lobes. This is consi stent with a pneumonia and could be due to prior aspiration. [address] follow-up recommended t o ensure resolution. ACT 112: Positive. There are findings on this exam that require communication between the performing entity and the patient following Patient Test Result Information Act ([place] Act 112) guidelines. Electronically signed by: Jerry Yeager M.D. 11/25/2023 11:10 AM
--- NOTE | 2023-11-25 16:41 | Hospitalist Progress Note ---
Date of Service November 25, 2023 Assessment & Plan (1) COPD exacerbation: Plan: 82-year-old male with past medical history significant for hyperlipidemia, postoperative hypothyroidism, asthma moderate persistent, bronchiectasis without complication, chronic rhinitis, hypertension, history of CAD s/p CABG, s/p stent, history of postoperative A-fib, GERD, BPH, MUGS, mild depression, beta- blockers contraindicated, history of pulmonary embolism, history of prostate cancer lives at home ambulates without support comes because of shortness of breath and cough going on for last few days.Family is in the room. As per family patient completed second course of prednisone taper a week ago. Again patient developed shortness of breath and coughing up yellowish phlegm. Feeling weak. Appetite is down. Last night he had chills. Denies any fevers. Before he came in he had some chest pain but that got resolved. Chest pain is more when he is coughing. Pollen bothers him. Denies any headache. Vision is okay. Currently no runny nose or sore throat. No nausea. No abdominal pain. Normal bowel and bladder movements. No rash. In the ER he was saturating 88%. On 2 L he saturating okay. Currently resting comfortably and hemodynamically stable.Patient's manager china is from [place]. Recently was started on budesonide. Bronchiectasis flare/asthma exacerbation History of bronchiectasis and moderate persistent asthma Hypoxia requiring oxygen Possible pneumonia Leukocytosis/patient recently was on steroids Received IV Solu-Medrol, IV Rocephin and IV azithromycin and DuoNebs in the ER. Will continue with IV Solu-Medrol 40 mg 3 times daily, IV Rocephin and IV doxycycline and nebs [id number] and as needed. Continue home inhalers. Appreciate pulmonary input and recommendation Will continue current medications Likely discharge tomorrow History of CAD s/p CABG, s/p stent On aspirin, statin, Zetia Follows with cardiology. No cardiac symptoms Hypothyroidism On Synthyroid. Hypertension. On losartan diuretics and verapamil Will monitor GERD On Pepcid. Hyperlipidemia. On statin and Zetia. History of volume overload Recently cardiology increase spironolactone to 25 mg daily and added Lasix 20 mg 3 times a week. His lower extremity edema resolved. Plan to reduce losartan dose if develops hypotension as per cardiology .will monitor. No signs and or symptoms of fluid overload History of MUGS Follows with [facility]/on[facility]. History of prostate cancer. s/p hormone therapy and brachytherapy. History of remote pulmonary embolism. DVT prophylaxis Lovenox. Disposition. Telemetry. Full code Admission and Anticipated Discharge Date Admission Date: November 24, 2023 Subjective 11/25/2023 Patient was seen and examined in telemetry unit He has been feeling much better Minimal wheezing and minimal shortness of breath at rest Has cough with productive of yellowish phlegm Review of Systems Review of Systems: All systems reviewed and unremarkable except as noted below Physical Exam Physical Exam: Sitting at the edge of the bed without any acute distress Constitutional: well developed, well nourished and + ill appearing Eyes: PERRL, conjunctivae normal, anicteric sclerae ENMT: external ear and nose normal, oropharynx normal Neck: trachea midline, no thyromegaly Respiratory: + respiratory distress (Minimal respirat ory distress) Auscultation: + diminished lung sounds and + crackles (Minimal bibasilar crackles) Cardiovascular: Rate/Rhythm: regular rate and regular rhythm Heart Sounds: normal S1 and normal S2; no murmur Extremities: no edema Gastrointestinal (Abdomen): Inspection/Auscultation: normal bowel sounds; abdomen not distended Percussion/Palpation: abdomen soft; abdomen nontender Musculoskeletal: No acute arthritis involving any of the joints Neurologic: normal touch/pain/proprioception and moves all extremities; no focal motor deficits Lymphatic: no cervical or axillary lymphadenopathy Results & Data Results & Data Vital Signs (Past 12 Hours) Vital Signs Temp Pulse Pulse Resp BP Pulse Ox O2 Del Method 11/25/23 16:23 70 11/25/23 15:50 36.5 C 82 22 145/60 H 93 Nasal Cannula 11/25/23 15:25 74 20 91 Nasal Cannula 11/25/23 11:43 36.4 C L 73 18 123/61 91 Nasal Cannula 11/25/23 10:49 78 20 95 Nasal Cannula 11/25/23 08:05 36.3 C L 86 20 145/77 H 90 Nasal Cannula 11/25/23 08:00 58 L 20 91 Nasal Cannula 11/25/23 07:45 Nasal Cannula 11/25/23 07:35 88 O2 Flow Rate 11/25/23 16:23 11/25/23 15:50 2.0 11/25/23 15:25 2 11/25/23 11:43 2.0 11/25/23 10:49 2 11/25/23 08:05 2.0 11/25/23 08:00 2 11/25/23 07:45 2 11/25/23 07:35 Laboratory Results Short CBC 11/24/23 11/25/23 Range/Units 19:45 04:39 WBC 19.85 H 21.93 H (4.8-10.8) K/ul Hgb 14.9 14.9 (14.0-18.0) g/dl Hct 45.1 44.5 (42.0-52.0) % Plt Count 162 163 (130-400) K/uL BMP 11/24/23 11/25/23 19:45 04:39 Sodium 135 L 137 Potassium 4.1 4.5 Chloride 103 108 H Carbon Dioxide 23 22 BUN 26 H 24 H Creatinine 1.08 1.06 Glucose 104 H 178 H Calcium 9.0 8.9 Liver Function 11/24/23 Range/Units 19:45 Total Bilirubin 1.3 H (0.2-1.0) mg/dl AST 14 (13-39) U/L ALT 19 (7-52) U/L Alkaline Phosphatase 73 (34-104) U/L Albumin 3.8 (3.4-5.0) gm/dl Urine 11/24/23 Range/Units Unknown Urine Color Yellow Urine Appearance Clear (Clear) Urine pH 6.0 (4.5-7.5) Ur Specific [place] 1.020 (1.000-1.030) Urine Protein Negative (Negative) Urine Glucose (UA) Negative (Negative) Medications Administered Current Inpatient Medications Acetaminophen (Acetaminophen 325 Mg Tab) 650 mg PO Q4H PRN PRN Reason: Pain or Fever Stop: 12/25/23 01:04 Albuterol (Albut/Ipratrop 3mg/0.5mg Neb 3 Ml Vial) 3 ml NEB QIDR JOHANA; Protocol Stop: 12/25/23 06:59 Last Admin: 11/25/23 15:25 Dose: 3 ml Albuterol (Albut/Ipratrop 3mg/0.5mg Neb 3 Ml Vial) 3 ml NEB Q4R PRN; Protocol PRN Reason: Shortness Of Breath Or Wheezing Stop: 12/25/23 01:04 Amoxicillin/Clavulanate Potassium (Amoxicillin/Clavulanate 875 Mg Tab) 1 tab PO BIDM [facility]; Protocol Stop: 12/02/23 16:59 Enoxaparin Sodium (Enoxaparin Inj 40 Mg/0.4 Ml Syr) 40 mg SQ HS [facility] Stop: 12/25/23 01:14 Last Admin: 11/25/23 01:39 Dose: 40 mg Fluticasone/Vilanterol (Fluticasone/Vilanterol 200/25mcg 14 Puffs/Inhaler) 1 puffs INH DAILY [facility] Stop: 12/25/23 08:59 Last Admin: 11/25/23 09:48 Dose: 1 puffs Guaifenesin (Guaifenesin 600 Mg Tabcr) 1,200 mg PO Q12 [facility] Stop: 12/25/23 08:59 Last Admin: 11/25/23 09:51 Dose: 1,200 mg Nitroglycerin (Nitroglycerin Sl 0.4 Mg/Tab Tab) 0.4 mg SL Q5M PRN PRN Reason: Chest Pain Stop: 12/25/23 01:04 Polyethylene Glycol (Polyethylene (Miralax) 17 Gm Pack) 17 gm PO DAILY PRN PRN Reason: Constipation Stop: 12/25/23 01:04 Sodium Chloride (Sodium Chlor 7% 4 Ml Neb) 4 ml NEB BIDR [facility] Stop: 12/25/23 18:59 Umeclidinium Rake (Umeclidinium Rake 62.5mcg/Blister 7 Puffs/Inhaler) 1 puffs INH DAILY [facility] Stop: 12/25/23 08:59 Last Admin: 11/25/23 09:50 Dose: 1 puffs
[2023-11-25] MEDS: AMOXICILLIN/CLAVULANATE 875 MG TAB PO SCH (17:16)
[2023-11-25] MEDS: SODIUM CHLOR 7% 4 ML NEB NEB SCH (20:02)
[2023-11-25] MEDS ORDERED: cefTRIAXone SODIUM 2,000 MG/50 ML BAG IV SCH (22:00)
--- NOTE | 2023-11-25 22:37 | Electrocardiogram Report ---
Test Reason : Blood Pressure : / mmHG Vent. Rate : 101 BPM Atrial Rate : 101 BPM P-R Int : 146 ms QRS Dur : 094 ms QT Int : 322 ms P-R-T Axes : 057 018 062 degrees QTc Int : 417 ms Sinus tachycardia Possible Inferior infarct (cited on or before 01-FEB-2021) Abnormal ECG When compared with ECG of 07-JUL-2022 06:31, No significant change Confirmed by Dayday Galvez ([id number]) on 11/25/2023 10:37:08 PM Referred By: REFERRED SELF Confirmed By:Dayday Galvez
[2023-11-26 05:09] LABS: BUN Creatinine Ratio 32.7 (10-20); Calcium 8.8 mg/dl (8.6-10.3); Creatinine Clr Calc Pharmacy 56.7 ml/min; Est GFR (African American) 78.2 ml/min; Est GFR (Non-African American) 67.5 ml/min; Magnesium 2.3 mg/dl (1.7-2.4); Phosphorus 3.1 mg/dl (2.5-4.9); Potassium 4.5 mmol/L (3.5-5.1)
--- NOTE | 2023-11-26 12:08 | Hospitalist Progress Note ---
Date of Service November 26, 2023 Assessment & Plan (1) COPD exacerbation: Plan: 82-year-old male with past medical history significant for hyperlipidemia, postoperative hypothyroidism, asthma moderate persistent, bronchiectasis without complication, chronic rhinitis, hypertension, history of CAD s/p CABG, s/p stent, history of postoperative A-fib, GERD, BPH, MUGS, mild depression, beta- blockers contraindicated, history of pulmonary embolism, history of prostate cancer lives at home ambulates without support comes because of shortness of breath and cough going on for last few days.Family is in the room. As per family patient completed second course of prednisone taper a week ago. Again patient developed shortness of breath and coughing up yellowish phlegm. Feeling weak. Appetite is down. Last night he had chills. Denies any fevers. Before he came in he had some chest pain but that got resolved. Chest pain is more when he is coughing. Pollen bothers him. Denies any headache. Vision is okay. Currently no runny nose or sore throat. No nausea. No abdominal pain. Normal bowel and bladder movements. No rash. In the ER he was saturating 88%. On 2 L he saturating okay. Currently resting comfortably and hemodynamically stable.Patient's banana expert is from [place]. Recently was started on budesonide. Bronchiectasis flare/asthma exacerbation History of bronchiectasis and moderate persistent asthma Hypoxia requiring oxygen Possible pneumonia Leukocytosis/patient recently was on steroids Received IV Solu-Medrol, IV Rocephin and IV azithromycin and DuoNebs in the ER. Will continue with IV Solu-Medrol 40 mg 3 times daily, IV Rocephin and IV doxycycline and nebs [id number] and as needed. Continue home inhalers. Appreciate pulmonary input and recommendation Will continue current medications Clinically much better without any symptoms at rest Will be discharged home on Augmentin as prescribed Strongly advised to have a follow-up with her banana expert as soon as possible History of CAD s/p CABG, s/p stent On aspirin, statin, Zetia Follows with cardiology. No cardiac symptoms Hypothyroidism On Synthyroid. Hypertension. On losartan diuretics and verapamil Will monitor GERD On Pepcid. Hyperlipidemia. On statin and Zetia. History of volume overload Recently cardiology increase spironolactone to 25 mg daily and added Lasix 20 mg 3 times a week. His lower extremity edema resolved. Plan to reduce los rose dose if develops hypotension as per cardiology .will monitor. No signs and or symptoms of fluid overload History of MUGS Follows with [facility] hematology/oncology. History of prostate cancer. s/p hormone therapy and brachytherapy. History of remote pulmonary embolism. DVT prophylaxis Lovenox. Disposition. Telemetry. Full code Admission and Anticipated Discharge Date Admission Date: November 24, 2023 Subjective 11/25/2023 Patient was seen and examined in telemetry unit He has been feeling much better Minimal wheezing and minimal shortness of breath at rest Has cough with productive of yellowish phlegm 11/26/2023 The patient was seen and examined in telemetry He has been feeling much better today Does not have any cough and/or shortness of breath Has had 2 steps O2 saturation test-Will be discharged home this afternoon Review of Systems Review of Systems: All systems reviewed and unremarkable except as noted below Physical Exam Physical Exam: Sitting at the edge of the bed without any acute distress Constitutional: well developed, well nourished and + ill appearing Eyes: PERRL, conjunctivae normal, anicteric sclerae ENMT: external ear and nose normal, oropharynx normal Neck: trachea midline, no thyromegaly Respiratory: + respiratory distress (Minimal respirat ory distress) Auscultation: + diminished lung sounds and + crackles (Minimal bibasilar crackles) Cardiovascular: Rate/Rhythm: regular rate and regular rhythm Heart Sounds: normal S1 and normal S2; no murmur Extremities: no edema Gastrointestinal (Abdomen): Inspection/Auscultation: normal bowel sounds; abdomen not distended Percussion/Palpation: abdomen soft; abdomen nontender Musculoskeletal: No acute arthritis involving of the joint Neurologic: normal touch/pain/proprioception and moves all extremities; no focal motor deficits Lymphatic: no cervical or axillary lymphadenopathy Results & Data Results & Data Vital Signs (Past 12 Hours) Vital Signs Temp Pulse Pulse Pulse Pulse Resp Resp 11/26/23 11:54 94 H 20 11/26/23 11:53 96 H 96 H 22 11/26/23 08:03 96 H 18 11/26/23 07:45 11/26/23 07:08 75 11/26/23 07:07 76 18 11/26/23 03:34 36.5 C 79 18 11/26/23 01:05 Resp BP Pulse Ox Pulse Ox Pulse Ox Pulse Ox O2 Del Method 11/26/23 11:54 90 Room Air 11/26/23 11:53 16 90 93 11/26/23 08:03 158/61 H 91 Room Air 11/26/23 07:45 Room Air, Nasal Cannula 11/26/23 07:08 11/26/23 07:07 90 Nasal Cannula 11/26/23 03:34 135/73 91 Nasal Cannula 11/26/23 01:05 90 O2 Del Method O2 Flow Rate O2 Flow Rate 11/26/23 11:54 11/26/23 11:53 11/26/23 08:03 11/26/23 07:45 2 11/26/23 07:08 11/26/23 07:07 2 11/26/23 03:34 2 11/26/23 01:05 Nasal Cannula 2 Laboratory Results [facility] 11/26/23 04:08 Sodium 136 Potassium 4.5 Chloride 108 H Carbon Dioxide 23 BUN 34 H Creatinine 1.04 Glucose 125 H Calcium 8.8 Medications Administered Current Inpatient Medications Acetaminophen (Acetaminophen 325 Mg Tab) 650 mg PO Q4H PRN PRN Reason: Pain or Fever Stop: 12/25/23 01:04 Albuterol (Albut/Ipratrop 3mg/0.5mg Neb 3 Ml Vial) 3 ml NEB QIDR JOHANA; Protocol Stop: 12/25/23 06:59 Last Admin: 11/26/23 11:53 Dose: 3 ml Albuterol (Albut/Ipratrop 3mg/0.5mg Neb 3 Ml Vial) 3 ml NEB Q4R PRN; Protocol PRN Reason: Shortness Of Breath Or Wheezing Stop: 12/25/23 01:04 Amoxicillin/Clavulanate Potassium (Amoxicillin/Clavulanate 875 Mg Tab) 1 tab PO BIDM JOHANA; Protocol Stop: 12/02/23 16:59 Last Admin: 11/26/23 08:51 Dose: 1 tab Enoxaparin Sodium (Enoxaparin Inj 40 Mg/0.4 Ml Syr) 40 mg SQ HS [facility] Stop: 12/25/23 01:14 Last Admin: 11/25/23 21:42 Dose: 40 mg Fluticasone/Vilanterol (Fluticasone/Vilanterol 200/25mcg 14 Puffs/Inhaler) 1 puffs INH DAILY JOHANA Stop: 12/25/23 08:59 Last Admin: 11/26/23 08:52 Dose: 1 puffs Guaifenesin (Guaifenesin 600 Mg Tabcr) 1,200 mg PO Q12 [facility] Stop: 12/25/23 08:59 Last Admin: 11/26/23 08:51 Dose: 1,200 mg Nitroglycerin (Nitroglycerin Sl 0.4 Mg/Tab Tab) 0.4 mg SL Q5M PRN PRN Reason: Chest Pain Stop: 12/25/23 01:04 Polyethylene Glycol (Polyethylene (Miralax) 17 Gm Pack) 17 gm PO DAILY PRN PRN Reason: Constipation Stop: 12/25/23 01:04 Sodium Chloride (Sodium Chlor 7% 4 Ml Neb) 4 ml NEB BIDR [facility] Stop: 12/25/23 18:59 Last Admin: 11/26/23 07:07 Dose: 4 ml Umeclidinium [place] (Umeclidinium [place] 62.5mcg/Blister 7 Puffs/Inhaler) 1 puffs INH DAILY [facility] Stop: 12/25/23 08:59 Last Admin: 11/26/23 08:52 Dose: 1 puffs
--- NOTE | 2023-11-27 07:28 | Discharge Summary ---
Date of Service November 26, 2023 Admission HPI Per Admitting Provider 82-year-old male with past medical history significant for hyperlipidemia, postoperative hypothyroidism, asthma moderate persistent, bronchiectasis without complication, chronic rhinitis, hypertension, history of CAD s/p CABG, s/p stent, history of postoperative A-fib, GERD, BPH, MUGS, mild depression, beta- blockers contraindicated, history of pulmonary embolism, history of prostate cancer lives at home ambulates without support comes because of shortness of breath and cough going on for last few days.Family is in the room. As per family patient completed second course of prednisone taper a week ago. Again patient developed shortness of breath and coughing up yellowish phlegm. Feeling weak. Appetite is down. Last night he had chills. Denies any fevers. Before he came in he had some chest pain but that got resolved. Chest pain is more when he is coughing. Pollen bothers him. Denies any headache. Vision is okay. Currently no runny nose or sore throat. No nausea. No abdominal pain. Normal bowel and bladder movements. No rash. In the ER he was saturating 88%. On 2 L he saturating okay. 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 Recently was started on budesonide Past medical history. As mentioned above Past surgical history. CABG, right shoulder arthroscopy, biopsy of eyelid, bronchoscopy, cataract surgery bilateral, colonoscopy, cystoscopy, EGD with endoscopic ultrasound, ERCP, thyroidectomy, appendectomy, laparoscopic cholecystectomy, nasal sinus endoscopy, umbilical hernia repair, vasectomy. Social history. . Quit, smoking 1970. Smoked 1 pack a day for 25 years. Alcohol 1 drink 3 times a week. No drug use. Family history. Father had prostate and bladder cancer. Pulmonary embolism. Mother had breast cancer. Stroke. Admission Exam Per Admitting Provider Physical Exam: General- adult Head- atraumatic Eyes- PERRL. ENT- oropharynx clear Neck- supple, no JVD. Lungs- clear to auscultation mild b/l rhonchi Heart- regular rhythm; no murmur, no gallop. Abdomen- normal bowel sounds, soft, nontender, no distension. Extremities- no pretibial edema, no erythema seen. Neuro- alert, oriented PERRL, no facial palsy; no dysarthria; moves extremities Principal Diagnosis Exacerbation of bronchiectasis, CAD status post CABG and is status post stent placement, hypertension Discharge Exam Sitting at the edge of the bed without any acute distress Constitutional well developed, well nourished and + ill appearing Eyes PERRL, conjunctivae normal, anicteric sclerae ENMT external ear and nose normal, oropharynx normal Neck trachea midline, no thyromegaly Respiratory + respiratory distress (Minimal respiratory distress) Auscultation: + diminished lung sounds and + crackles (Minimal bibasilar crackles) Cardiovascular Rate/Rhythm: regular rate and regular rhythm Heart Sounds: normal S1 and normal S2; no murmur Extremities: no edema Gastrointestinal (Abdomen) Inspection/Auscultation: normal bowel sounds; abdomen not distended Percussion/Palpation: abdomen soft; abdomen nontender Neurologic normal touch/pain/proprioception and moves all extremities; no focal motor deficits Lymphatic no cervical or axillary lymphadenopathy Discharge Data Allergies Allergy/AdvReac Type Severity Reaction Status Date / Time Beta-Blockers AdvReac Mild History Verified 03/29/21 19:25 (Beta-Adrenergic Bloc intolerance as per records codeine AdvReac Mild N/V Verified 03/29/21 19:25 Consultations 11/24/23 21:57 ED Decision to Admit Stat 11/25/23 08:00 Consult Pulmonology Routine Ordered Studies 11/25/23 07:59 CT chest diagnostic wo con Urgent FL Swallow [FL video swallow] Routine Hospital Course (1) COPD exacerbation: 82-year-old male with past medical history significant for hyperlipidemia, postoperative hypothyroidism, asthma moderate persistent, bronchiectasis without complication, chronic rhinitis, hypertension, history of CAD s/p CABG, s/p stent, history of postoperative A-fib, GERD, BPH, MUGS, mild depression, beta- blockers contraindicated, history of pulmonary embolism, history of prostate cancer lives at home ambulates without support comes because of shortness of breath and cough going on for last few days.Family is in the room. As per family patient completed second course of prednisone taper a week ago. Again patient developed shortness of breath and coughing up yellowish phlegm. Feeling weak. Appetite is down. Last night he had chills. Denies any fevers. Before he came in he had some chest pain but that got resolved. Chest pain is more when he is coughing. Pollen bothers him. Denies any headache. Vision is okay. Currently no runny nose or sore throat. No nausea. No abdominal pain. Normal bowel and bladder movements. No rash. In the ER he was saturating 88%. On 2 L he saturating okay. 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 Recently was started on budesonide. Bronchiectasis flare/asthma exacerbation History of bronchiectasis and moderate persistent asthma Hypoxia requiring oxygen Possible pneumonia Leukocytosis/patient recently was on steroids Received IV Solu-Medrol, IV Rocephin and IV azithromycin and DuoNebs in the ER. Will continue with IV Solu-Medrol 40 mg 3 times daily, IV Rocephin and IV doxycy jc and nebs [id number] and as needed. Continue home inhalers. Appreciate pulmonary input and recommendation Will continue current medications Clinically much better without any symptoms at rest Will be discharged home on Augmentin as prescribed Strongly advised to have a follow-up with her wound/ostomy nurse as soon as possible History of CAD s/p CABG, s/p stent On aspirin, statin, Zetia Follows with cardiology. No cardiac symptoms Hypothyroidism On Synthyroid. Hypertension. On losartan diuretics and verapamil Will monitor GERD On Pepcid. Hyperlipidemia. On statin and Zetia. History of volume overload Recently cardiology increase spironolactone to 25 mg daily and added Lasix 20 mg 3 times a week. His lower extremity edema resolved. Plan to reduce losartan dose if develops hypotension as per cardiology .will monitor. No signs and or symptoms of fluid overload History of MUGS Follows with [facility] hematology/oncology. History of prostate cancer. s/p hormone therapy and brachytherapy. History of remote pulmonary embolism. DVT prophylaxis Lovenox. Disposition. Telemetry. Full code Total Time Total Time Spent Total Time Spent (In Minutes): 40 minutes Discharge Plan Discharge Items Patient Disposition: Home - Self-Care Reason For Visit: SOB, HYPOXIA, COPD EX, PNEUMONIA Discharge Diagnosis: Exacerbation of bronchiectasis, CAD status post CABG and is status post stent placement, hypertension Condition on Discharge: Fair Activity: Resume your previous activity Non-emergency contact: Primary Care Provider Call non-emergency contact if: you have any medication questions and your symptoms worsen Follow-up/Referrals: Donn Clarke MD [Primary Care Provider] - (Your doctor's office will call you with an appointment within 7 days) Diet: Heart Healthy Addtl Attending Provider Instructions: Please take precautions to avoid falls Finish the course of antibiotic Please make a follow-up appointment with your wound/ostomy nurse as soon as possible Keep appointment with your PCP Pending Studies at Discharge: Yes Studies:: Sputum test Stand-Alone Forms: [facility] [employer], Smoking Cessation Medications and DC Order Prescriptions: New amoxicillin-pot clavulanate 875-125 mg Tablet 1 tab PO BIDM Qty: 14 0RF Continued tamsulosin [Flomax] 0.4 mg capsule 0.4 mg PO HS sertraline [Zoloft] 50 mg Tablet 50 mg PO QAM albuterol sulfate 90 mcg/actuation Hfa Aerosol Inhaler 2 puff INHALATION Q6H PRN (Reason: Shortness Of Breath) famotidine [Pepcid] 20 mg tablet 20 mg PO BID losartan 100 mg tablet 100 mg PO QAM atorvastatin 80 mg Tablet 80 mg PO HS cholecalciferol (vitamin D3) [Vitamin D3] 25 mcg (1,000 unit) Tablet 25 mcg PO [id number] Rx Instructions: TAKE THIS MED ON TUE/TUE/TUE ipratropium-albuterol 0.5 mg-3 mg(2.5 mg base)/3 mL solution for nebulization 3 ml INHALATION Q4 PRN (Reason: Shortness Of Breath Or Wheezing) montelukast 10 mg tablet 10 mg PO HS spironolactone 25 mg tablet 25 mg PO QAM ezetimibe 10 mg tablet 10 mg PO QAM Zyrtec 10 mg Capsule 10 mg PO AMPM Probiotic 10 billion cell Capsule 10,000 mmu cells PO DAILY aspirin 81 mg Tablet,Delayed Release (Dr/Ec) 162 mg PO QPM Rx Instructions: 11/24/23 per Arcelia : pt taking one tablet every evening furosemide 20 mg Tablet 20 mg PO [id number] Rx Instructions: take this medication once daily on Mondays/Wednesdays/Fridays acetaminophen 500 mg Tablet 500 mg PO Q4H MDD 3000mg PRN (Reason: Pain) dextran 70-hypromellose solution 1 applic OPB UD PRN (Reason: Eye Irritation) fluorouracil 0.5 % Cream 1 applic TOPICAL HS Rx Instructions: apply to affected areas of face/scalp nightly for 2-3weeks. ipratropium bromide 42 mcg (0.06 %) Jasper,Non-Aerosol 1 spray INTRANASAL HS Rx Instructions: administer into each nostril levothyroxine 125 mcg tablet 125 mcg PO DAILYBB psyllium Powder 0 tbsp PO DAILY Rx Instructions: mix into at least 8 oz of water or juice before administering triamcinolone acetonide [Nasacort Allergy] 55 mcg Aerosol,Jasper 1 spray INTRANASAL . NEEDED PRN (Reason: Congestion) prednisolone acetate 1 % Drops,Suspension See Rx Instructions .ROUTE .COMPLEX Rx Instructions: place 5 drops in 8 oz of saline nasal solution ( disatilled water and salt ). Use steriod/salt/water irrigations twice per day to flush nasal/sinus cavity. NOT for use in eye. Trelegy Ellipta 200-62.5-25 mcg blister with device 1 inh INHALATION DAILY verapamil 120 mg tablet extended release 120 mg PO QAM budesonide 0.5 mg/2 mL suspension for nebulization 0.5 mg inhalation Q12H Discharge Orders: Discharge Order (Routine); Ordered 11/26/23 Ordered By: Aleah Bean Admission Data Admit Date/Time: 11/24/23 23:07 Attending Provider: Aleah Bean Admit Provider: Morales Del Rio Primary Care Provider: Donn Clarke Other Providers: Bonilla Bai; Morales Del Rio Other Interventions: Discharge Summary Assessment (RN) Last Done: 11/26/23 12:36
== END 2023-11-26 15:07 | disposition home or self-care (01) | DRG 191 ==
LOC: ED 19:23 → 4W 23:07

== ENCOUNTER 2024-03-31 11:54 | Inpatient (IN) ==
--- OUTSIDE RECORDS SUMMARY | 2024-03-31 12:04 | External Medical Summary | Summary of Care ---
Author Name Unknown Organization [facility] Address [address] [place] [address] Phone [phone] Care Team Providers Care Video Effects Editor Name Role Phone Donn Clarke MD Primary Care Provider + Reason for Visit * Reason Onset Date Comments Hospital Follow-Up Patient disch arged from [facility] on 03/10 following visit where he presented w/ SOB and a cough. Still feels SOB and has little energy today. Hospital Follow-Up 03/14/2024 Encounter Details Date Type Department Care Team (Late st Contact Info) Description 03/14/2024 10:00 AM EDT Office Visit General Internal Medicine [facility] [address] [place] [address] Whitney Lam PA-C [address] [place] [address] Hospital discharge follow-up*; Multifocal pneumonia; Bronchiectasis with (acute) exacerbation (HCC); PAF (paroxysmal atrial fibrillation) (HCC); Post-COVID chronic cough Allergies Active Allergy Reactions Criticality Noted Date Comments Lorazepam Low 07/27/2019 Codeine Nausea/vomiting Low 10/31/2018 Pollen Wheezing,Cough Low 11/30/2016 documented as of this encounter (statuses as of 03/14/2024) Medications Medication Sig Dispensed Refills Start Date End Date Status ACETAMINOPHEN 500 MG PO TABS Take 1 Tablet by mouth every 4 hours as needed for Pain. Do not take more then 3000 mg in a 24 hr period. Active Probiotic Capsule Take 1 Cap by mouth daily. 11/02/2018 Active aspirin enteric coated 81 MG TBECIndications:Donell nary atherosclerosis of [place] coronary artery Take 2 Tabs by mouth daily. 100 Tab 3 07/22/2019 Active Additional Information Patient taking differently: 81 mgOralDAILY(1900), Reported on 11/10/2022 Vitamin D 25 MCG (1000 UT) Oral Tablet Take 1 Tablet by mouth once a day on Tuesday, Tuesday, and Tuesday only. 11/03/2020 Active Metamucil 28.3 % Oral Powder (Psyllium) Take by mouth daily. Active Albuterol Sulfate HFA 108 (90 Base) [...] 2-3 weeks 40 g 1 10/03/2022 Active Sertraline HCl 50 MG Oral Tablet (Zoloft)Indications: Moderate major depression (HCC) TAKE ONE TABLET BY MOUTH EVERY DAY 100 Tablet 3 03/24/2023 05/03/20 24 Active Ezetimibe 10 MG Oral Tablet (Zetia)Indications:D yslipidemia, goal LDL below 70 TAKE ONE TABLET BY MOUTH EVERY MORNING 90 Tablet 3 03/24/2023 03/24/20 24 Active Atorvastatin Calcium 80 MG Oral Tablet (Lipitor)Indications :Dyslipidemia, goal LDL below 70 TAKE ONE TABLET BY MOUTH EVERY DAY 90 Tablet 3 05/24/2023 05/30/20 24 Active Triamcinolone Acetonide 55 MCG/ACT Nasal Aerosol (Nasacort Allergy 24HR) Administer 1 [place] into each nostril daily as needed. Active Famotidine 20 MG Oral Tablet (Pepcid)Indications: Gastroesophageal reflux disease TAKE ONE TABLET BY MOUTH TWICE A DAY 180 Tablet 3 06/21/2023 06/20/20 24 Active Losartan Potassium 100 MG Oral Tablet (Cozaar)Indications: HTN, goal below 140/90 TAKE ONE TABLET BY MOUTH EVERY DAY 100 Tablet 3 07/06/2023 07/05/20 24 Active Ipratropium [place] 0.06 % Nasal Solution (Atrovent) Administer 1 [place] into each nostril at bedtime. 45 mL 3 08/17/2023 Active Tamsulosin HCl 0.4 MG Oral Capsule (Flomax)Indications: BPH without obstruction/lower urinary tract symptoms TAKE ONE CAPSULE BY MOUTH AT BEDTIME 90 Capsule 2 09/01/2023 Active Levothyroxine Sodium 125 MCG Oral Tablet (Levoxyl)Indications :Postoperative hypothyroidism Take 1 Tablet by mouth daily first thing in the morning. (at least 30 min prior to breakfast or other meds) 90 Tablet 1 10/13/2023 Active Trelegy Ellipta 200-62.5-25 MCG/ACT Aerosol Powder Breath Activated Inhale 1 Puff by mouth daily. Active Spironolactone 25 MG Oral Tablet (Aldactone)Indicatio ns:HTN, goal below 140/90,Heart failure, diastolic, with acute decompensation (HCC),SOB (shortness of breath),Peripheral edema Take 1 Tablet by mouth in the morning. 100 Tablet 3 11/17/2023 Active Furosemide 20 MG Oral Tablet (Lasix)Indications:H TN, goal below 140/90,Heart failure, diastolic, with acute decompensation (HCC),SOB (shortness of breath),Peripheral edema Take 1 Tablet by mouth once a day on Tuesday, Tuesday, and Tuesday only. 12 Tablet 5 11/18/2023 Active guaiFENesin ER 600 MG Oral Tablet Extended Release 12 Hour (Mucinex) Take 1 Tablet by mouth in the morning and 1 Tablet before bedtime. Active Budesonide 0.5 MG/2ML Inhalation Suspension (Pulmicort) TAKE 2ML USING NEBULIZER EVERY 12 HOURS 11/24/2023 Active Montelukast Sodium 10 MG Oral Tablet (Singulair)Indicatio ns:Moderate persistent asthma without complication TAKE 1 TABLET BY MOUTH EVERYDAY AT BEDTIME 90 Tablet 1 11/30/2023 Active Sodium Chloride 7 % Inhalation Nebulization Solution (Hyper-Kendell) 11/28/2023 Acti ve Benzonatate 100 MG Oral Capsule (Tessalon Perljose) Take 1 Capsule by mouth 3 times a day as needed for Cough for up to 50 doses. 50 Capsule 12/01/2023 Active Ipratropium-Albutero l 0.5-2.5 (3) MG/3ML Inhalation Solution (Duoneb)Indications: ALEXANDER (dyspnea on exertion),Acute cough INHALE THE CONTENTS OF ONE VIAL VIA NEBULIZER EVERY 4 HOURS NEEDED FOR SHORTNESS OF BREATH AND OR WHEEZING 1620 mL 12/30/2023 Active Dextran 70-Hypromellose 0.1-0.3 % Ophthalmic Solution Use as Directed 11/24/2023 Active Dupilumab 300 MG/2ML Subcutaneous Solution Pen-injector ([employer]) Inject 2 mL under the skin every 14 days. 01/02/2024 Active Doxycycline Hyclate 100 MG Oral Tablet Take 1 Tablet by mouth in the morning and 1 Tablet before bedtime. 02/20/2024 Active predniSONE 5 MG Oral Tablet (Deltasone) TAKE 4 TABLETS BY MOUTH FOR 5 DAYS THEN 3 FOR 5 DAYS THEN 2 FOR 5 DAYS THEN 1 FOR 5 DAYS 02/21/2024 Active Verapamil HCl ER 120 MG Oral Tablet Extended Release (Isoptin SR)Indications:Coron myra atherosclerosis of [place] coronary artery,PAF (paroxysmal atrial fibrillation) (HCC),HTN, goal below 140/90,Beta-blockers contraindicated,S/P CABG x 2,S/P drug eluting coronary stent placement TAKE ONE TABLET BY MOUTH EVERY MORNING 90 Tablet 3 03/01/2024 Active Loratadine 10 MG Oral Tablet (Claritin) Take 1 Tablet by mouth in the morning. Active Azithromycin 250 MG Oral Tablet (Zithromax) TAKE 2 TABLETS BY MOUTH DAILY IN THE MORNING FOR 4 DAYS 03/10/2024 Active Cefdinir 300 MG Oral Capsule (Omnicef) TAKE 1 CAPSULE BY MOUTH TWICE A DAY FOR 4 DAYS 03/10/2024 Active HYDROcodone Bit-Homatrop MBr 5-1.5 MG/5ML Oral Solution (Hycodan) TAKE 5 ML BY MOUTH EVERY 6 HOURS NEEDED FOR SEVERE COUGH 03/10/2024 Active Cetirizine HCl 10 MG Oral Tablet (ZyrTEC Allergy) Take 1 Tablet by mouth in the morning and 1 Tablet before bedtime. 03/14/20 24 Discontinu ed(Medicat ion List Clean Up) Hospital, Clinic, or Other Facility Administered Medication Ordered Dose Route Frequency Start Date End Date Status methacholine (0 mg/mL) PLACEBO (Provocholine) inhalation solution 3 mLIndications:Shortness of breath 3 mL IN ONCE PRN 07/14/2022 Active documented as of this encounter (statuses as of 03/14/2024) Active Problems Problem Noted Date Diagnosed Date [...] single drug-eluting stent (3.0 x 15 mm [place]). 3. Successful PCI of ostial to mid LAD with 2 overlapping drug-eluting stents (3.0 x 34, 2.5 x 12 mm [place]). History of prostate cancer 12/01/2017 History of [...] lower eyelid MIS 02/2018 Coronary atherosclerosis of [place] coronary estella ry 05/16/2007 BPH without obstruction/lower urinary tract symp toms 08/03/2002 Chronic rhinitis 08/03/2002 documented as of this encounter (statuses as of 03/14/2024) Resolved Problems Problem Noted Date Diagnosed Date Resolved Date Dyslipidemia, goal LDL below 70 08/19/2023 02/24/2024 Age-related osteoporosis wit hout current pathological fracture [...] recommend f/u 3 years [employer] Other*[id number] 06/05/2007 08/24/2016 Overview: Study Title: Genomic Markers for Patients with Cardiovascular Disease Project # [id number] Community Health Counselor: Aretha Rodríguez MD [phone] Coronary atherosclerosis of [place] coronary artery 05/16/2007 07/27/2019 ADVANCE DIRECTIVE INFORMATION [...] as of this encounter (statuses as of 03/14/2024) Immunizations Name Administration Dates Next Due COVID-19 mRNA, LNP-s, No Pre serve, 2-Dose Series (AudioBeta) 10/21/2021,04/20/2021,09/23/2020,08/25 COVID-19, LNP-s, No Preserve , Justyn-sucrose, Ages 12+ (Pfizer) 10/21/2021 COVID-19, MRNA-LNP, 23-24, P F, 30 MCG/0.3 mL, 12 YRS AND ABOVE, IM (PFIZER-Comirnat) 04/12/2023 Covid-19, Mrna, Lnp-s, Pf, B ivalent, 30 Mcg, IM, 12 yrs and above (AudioBeta) 04/07/2022 Pneumococcal Conjugate Vacc, 13 Valent (Prevnar) 10/17/2014 Pneumococcal Conjugate Vacci ne, 20-valent ([id number]) 06/08/2022 Pneumococcal Polysaccharide PPV23 (Pneumovax) 07/30/2011 RSV Vac., Bivalent, Perfusio n F, Pf,0.5 Ml (Abrysvo) 07/19/2023 RSV Vac., Recomb, Adjuvant, PF,0.5 Ml (Arexvy) 08/20/2023 Season Influenza, Quad, PF, Adjuvanted, 65+ Yrs, [...] 10/25/2007 TDAP (age 10 and older)(Boostrix) 08/20/2013 TDAP, Age 7 and older, IM (Adacel) 02/24/2024 Varicella Zoster Vaccine (Adult) 10/19/2010 Zoster Vaccine [...] Answer Date Recorded PHQ Adult Total Score 1 11/28/2023 Hunger Vital Sign Answer Date Recorded Within the past 12 months, y ou worried that your food would run out before you got the money to buy more. Never true 12/27/19 24 Within the past 12 months, t he food you bought just didn't last and you didn't have money to get more. Never true 12/27/2023 Childcare Answer Date Recorded Do you feel overwhelmed with taking care of a child, family member or friend? No 12/27/2023 Does your family need help f inding childcare? (Household - for ages 0-17 years) Not on file 12/27/2023 Clothing Answer Date Recorded Have you been unable to get clothing when it was really needed? No 12/27/2023 Is your family able to get c lothes or diapers when needed? (Household - for ages 0-17 years) Not on file 12/27/2023 Personal Safety Answer Date Recorded Do you feel unsafe or have concerns for your saf ety? No 12/27/2023 Do you have concerns for you r family's safety? (Household - for ages 0-17 years) Not on file 12/27/2023 Utilities Answer Date Recorded Do you have trouble paying y our heating, water, or electric bill? No 12/27/2023 Is your family able to pay t he heat, water, or electric bill? (Household - for ages 0-17 years) Not on file 12/27/2023 Does your family have access to good internet? (Household - for ages 0-17 years) Not on file 12/27/2023 Employment Status Answer Date Recorded Are you unemployed or without regular income? No 12/27/2023 Does the household have a re gular source of income? (Household - for ages 0-17 years) Not on file 12/27/2023 Social Connections Answer Date Recorded How often do you feel lonely or isolated from th ose around you? Never 12/27/2023 Financial Resource Strain Answer Date R ecorded Do you have any trouble payi ng for your medications, or do you think you might in the future? No 12/27/2023 Does your family have troubl e paying for medicine? (Household - for ages 0-17 years) Not on file 12/27/2023 Transportation Needs Answer Date Record ed READ ONLY Do you have troubl e getting a ride to medical visits or work? Never True 12/27/2023 Does your family have a hard time getting a ride to doctors visits? (Household - for ages 0-17 years) Not on file 12/27/2023 Has lack of transportation k ept you from medical appointments, meetings, work, or from getting things needed for daily living? Check all that apply. (Adult - for ages 18 years and over) Not on file 12/27/2023 Do you (or your family) have trouble finding or paying for a ride (transportation)? (Household - for ages 0-17 years) Not on file 12/27/2023 Housing Stability Answer Date Recorded Do you currently live in a s helter or have no steady place to sleep at night? No 12/27/2023 READ ONLY Do you think you a re at risk of becoming homeless? No 12/27/2023 Does your family worry about paying for your home or becoming homeless? (Household - for ages 0-17 years) Not on file 0 12/27/2023 Are you homeless or worried that you might be in the future? (Adult - for ages 18 years and over) Not on file Are you (or your family) zeny eless or worried that you might be in the future? (Household - for ages 0-17 years) Not on file Food Insecurity Answer Date Recorded Do you need food for this week? No 12/27/2023 Are you able to get enough f ood for your family? (Household - for ages 0-17 years) Not on file 12/27/2023 Does your family need food t his week? (Household - for ages 0-17 years) Not on file 12/27/2023 Do you always have enough fo od for your family? (Household - for ages 0-17 years) Not on file 12/27/2023 Sex and Gender Information Value Date Recorded Sex Assigned at Male 12/12/2018 10:53 AM EDT Gender Identity Male 12/12/2018 10:53 AM EDT Sexual Orientation Straight 12/12/2018 10 :53 AM EDT Job Start Date Occupation Industry Not on file Not on file Not on file documented as of this encounter Last Filed Vital Signs Vital Sign Reading Time Taken Comments Blood Pressure 112/60 03/14/2024 10:05 AM EDT Pulse 83 03/14/2024 10:05 AM EDT Temperature 36.7 C (98 F) 03/14/2024 10:05 AM EDT Respiratory Rate 18 03/14/2024 10:05 AM EDT Oxygen Saturation 96% 03/14/2024 10:05 AM EDT Inhaled Oxygen Concentration - - Weight 86.3 kg (190 lb 3.2 oz) 03/14/2024 10:05 AM EDT Height - - Body Mass Index 28.09 12/01/2023 1:02 PM EDT documented in this encounter Functional Status [...] as of this encounter Progress Notes * Whitney Lam PA-C - 03/14/2024 10:12 AM EDT SUBJECTIVE: Judith Crockett is a 83 year old male. Chief Complaint Patient presents with Hospital Follow-Up Patient discharged from [facility] on 03/10 following visit where he presented w/ SOB and a cough. Still feels SOB and has little energy today. Hospital Follow-Up Recent Admission: Patient was recently admitted to [facility]. The date of discharge was 03/10/24. Discharge report receivedand reviewed. HPI: Pt presented to ER on 03/08 at the recommendation of his property analyst with shortness of breath and severe cough. Imaging in ER consistent with multifocal pneumonia. Given IV antibiotics. Cardio and Pulm consulted. Was continued on steroids. Echo was done--normal EF with no significant wall abnormalities. [place] symptoms were attributable to his pneumonia. Recommended f/up with them as outpatient and possibly pursuing a stress test. Pulm recommended abx for 5 days and f/up CT in 6-8 weeks. Discharged on 4 additional days of Omnicef and Zithromax, as well as Mucinex and Tessalon for cough. 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 Do not take more then 3000 mg in a 24 hr period. Probiotic Capsule Take 1 Cap by mouth [...] nightly for 2-3 weeks 40 g 1 Sertraline HCl 50 MG Oral Tablet (Zoloft) TAKE ONE TABLET BY MOUTH EVERY DAY 100 Tablet 3 Ezetimibe 10 MG Oral Tablet (Zetia) TAKE ONE TABLET BY MOUTH EVERY MORNING 90 Tablet 3 Atorvastatin Calcium 80 MG Oral Tablet (Lipitor) TAKE ONE TABLET BY MOUTH EVERY DAY 90 Tablet 3 Triamcinolone Acetonide 55 MCG/ACT Nasal Aerosol (Nasacort Allergy 24HR) Administer 1 [place] into each nostril daily as needed. Famotidine 20 MG Oral Tablet (Pepcid) TAKE ONE TABLET BY MOUTH TWICE A DAY 180 Tablet 3 Losartan Potassium 100 MG Oral Tablet (Cozaar) TAKE ONE TABLET BY MOUTH EVERY DAY 100 Tablet 3 Ipratropium [place] 0.06 % Nasal Solution (Atrovent) Administer 1 [place] into each nostril at bedtime. 45 mL 3 Tamsulosin HCl 0.4 MG Oral Capsule (Flomax) TAKE ONE CAPSULE BY MOUTH AT BEDTIME 90 Capsule 2 Levothyroxine Sodium 125 MCG Oral Tablet (Levoxyl) Take 1 Tablet by mouth daily first thing in the morning. (at least 30 min prior to breakfast or other meds) 90 Tablet 1 Trelegy Ellipta 200-62.5-25 MCG/ACT Aerosol Powder Breath Activated Inhale 1 Puff by mouth daily. Spironolactone 25 MG Oral Tablet (Aldactone) Take 1 Tablet by mouth in the morning. 100 Tablet 3 Furosemide 20 MG Oral Tablet (Lasix) Take 1 Tablet by mouth once a day on Tuesday, Tuesday, and Tuesday only. 12 Tablet 5 guaiFENesin ER 600 MG Oral Tablet Extended Release 12 Hour (Mucinex) Take 1 Tablet by mouth in the morning and 1 Tablet before bedtime. Budesonide 0.5 MG/2ML Inhalation Suspension (Pulmicort) TAKE 2ML USING NEBULIZER EVERY 12 HOURS Montelukast Sodium 10 MG Oral Tablet (Singulair) TAKE 1 TABLET BY MOUTH EVERYDAY AT BEDTIME 90 Tablet 1 Sodium Chloride 7 % Inhalation Nebulization Solution (Hyper-Kendell) Benzonatate 100 MG Oral Capsule (Tessalon Per[place]) Take 1 Capsule by mouth 3 times a day as needed for Cough for up to 50 doses. 50 Capsule 0 Ipratropium-Albuterol 0.5-2.5 (3) MG/3ML Inhalation Solution (Duoneb) INHALE THE CONTENTS OF ONE VIAL VIA NEBULIZER EVERY 4 HOURS NEEDED FOR SHORTNESS OF BREATH AND OR WHEEZING 1620 mL 0 Dextran 70-Hypromellose 0.1-0.3 % Ophthalmic Solution Use as Directed Dupilumab 300 MG/2ML Subcutaneous Solution Pen-injector ([employer]) Inject 2 mL under the skin every14 days. predniSONE 5 MG Oral Tablet (Deltasone) TAKE 4 TABLETS BY MOUTH FOR 5 DAYS THEN 3 FOR 5 DAYS THEN 2FOR 5 DAYS THEN 1 FOR 5 DAYS Verapamil HCl ER 120 MG Oral Tablet Extended Release (Isoptin SR) TAKE ONE TABLET BY MOUTH EVERY MORNING 90 Tablet 3 Loratadine 10 MG Oral Tablet (Claritin) Take 1 Tablet by mouth in the morning. Azithromycin 250 MG Oral Tablet (Zithromax) TAKE 2 TABLETS BY MOUTH DAILY IN THE MORNING FOR 4 DAYS Cefdinir 300 MG Oral Capsule (Omnicef) TAKE 1 CAPSULE BY MOUTH TWICE A DAY FOR 4 DAYS HYDROcodone Bit-Homatrop MBr 5-1.5 MG/5ML Oral Solution (Hycodan) TAKE 5 ML BY MOUTH EVERY 6 HOURS NEEDED FOR SEVERE COUGH Doxycycline Hyclate 100 MG Oral Tablet Take 1 Tablet by mouth in the morning and 1 Tablet before bedtime. Current Facility-Administered Medications Medication Dose Route Frequency Provider Last Rate Last Admin methacholine (0 mg/mL) PLACEBO (Provocholine) inhalation solution 3 mL 3 mL Inhalation Once PRN Macrina Bhat MD Current and discharge medications have been reconciled. Review of patient's allergies indicates: Allergen Reactions Ativan [Lorazepam] Codeine Nausea/vomiting Pollen Wheezing and Cough OBJECTIVE: BP 112/60 | Pulse 83 | Temp 36.7 C (98 F) (Tympanic) | Resp 18 | Wt 86.3 kg (190 lb 3.2 oz) | SpO2 96% | BMI 28.09 kg/m | BSA 2.05 m REVIEW OF SYSTEMS: Review of Systems Constitutional: Negative for chills and fever. Respiratory: Positive for shortness of breath. Cardiovascular: Negative for chest pain. Gastrointestinal: Negative for constipation and diarrhea. Genitourinary: Negative. Neurological: Negative for dizziness, syncope and headaches. PHYSICAL EXAM: BP 112/60 | Pulse 83 | Temp 36.7 C (98 F) (Tympanic) | Resp 18 | Wt 86.3 kg (190 lb 3.2 oz) | SpO2 96% | BMI 28.09 kg/m | BSA 2.05 m Physical Exam Constitutional: General: He is not in acute distress. Appearance: He is not diaphoretic. HENT: Mouth/Throat: Mouth: Mucous membranes are moist. Pharynx: Oropharynx is clear. Cardiovascular: Rate and Rhythm: Normal rate and regular rhythm. Pulmonary: Effort: Pulmonary effort is normal. Breath sounds: Normal breath sounds. Musculoskeletal: Cervical back: Normal range of motion and neck supple. Skin: General: Skin is warm and dry. Neurological: General: No focal deficit present. Mental Status: He is alert. Mental status is at baseline. ASSESSMENT: Hospital discharge follow-up (Primary) - DISCH MED RECON CUR MED LIS Multifocal pneumonia Bronchiectasis with (acute) exacerbation (HCC) PAF (paroxysmal atrial fibrillation) (HCC) Post-COVID chronic cough Follow-up: Return if symptoms worsen or fail to improve. | Check-out note: CT of chest sched for 05/28 needs moved up to April please. @ [facility] PLAN: Continue present medication(s): F/up with Pulm and Cardio as recommended. Will move up CT of chest sched for May to Apr to f/up on pneumonia. Follow up as scheduled. I spent a total of 30-39 minutes (exact time 34 mins) minutes on the date of service in preparation, delivery, and documentation of the care provided to Judith Crockett excluding any time spent in performance of separately billed services. Whitney Lam PA-C documented in this encounter Nursing Notes * Viki Duenas MED ASSIST - 03/14/2024 10:06 AM EDT Chief Complaint Patient presents with Hospital Follow-Up Patient discharged from [facility] on 03/10 following visit where he presented w/ SOB and a cough. Still feels SOB and has little energy today. documented in this encounter Plan of Treatment Upcoming Encounters Date Type Department Care Team (Late st Contact Info) Description 03/26/2024 10:30 AM EDT Nurse Only Ancillary [facility] [address] [facility] [place] [id number] David, Nurse Annual Wellness [facility] [address] [facility] [place] [address] 03/28/2024 1:45 PM EDT Office Visit MOHS Surgery [facility] [address] [place] [address] Ama Galvez MD [address] [place] [address] 04/26/2024 9:15 AM EDT Imaging Radiology [facility] [facility] [address] [facility] [place] [address] 05/28/2024 9:15 AM EST Imaging Radiology [address] [facility] [place] [address] 06/05/2024 1:40 PM EST Office Visit Pulmonary Medicine, [facility] [address] [facility] [place] [address] Sundeep López MD [address] [facility] [place] [address] 07/27/2024 11:15 AM EST Office Visit Dermatology [facility] [address] [place] [address] Donn Ornelas MD [address] [place] [address] 09/03/2024 9:30 AM EST Office Visit Cardiology, [facility] [address] [facility] [place] [address] Jonnathan Song [facility] [address] [facility] [place] [address] 10/25/2024 2:00 PM EDT Office Visit General Internal Medicine [facility] [place] [address] [facility] [place] [address] Donn Clarke MD [address] [place] [address] 02/18/2025 2:00 PM EDT Office Visit Hematology/Oncology [facility] [place] [address] [place] [phone] Smita Miller MD [address] [place] [address] Scheduled Procedures Name Priority Associated Diagnoses Date/Ti me COLONOSCOPY FLEXIBLE PROXIMAL DIAGNOSTIC Recall History of colon polyps Health Maintenance Due Date Last Done Comments DXA Scan 01/27/2023 01/28/2020, 03/13/2008 COVID-19 Vaccine ( season) 2023 04/12/2023, 04/07/2022, 10/21/2021, Additional history exists Influenza Vaccine (FLU shot) (#1) 2024 04/05/2023, 03/23/2022, 03/23/2022, Additional history exists Adult Wellness Visit 03/23/2024 03/23/2023, 03/16/20 22 Depression Monitoring 11/27/2024 11/28/2023 TSH 11/29/2024 11/30/2023, 10/16, 10/12/2023, Additional history exists GFR 02/13/2025 02/14/2024, 11/15, 08/19/2023, Additional history exists Albumin/Creatinine Ratio 04/22/2025 022, 04/25/2015, 04/29/2014 Colonoscopy 08/11/2025 08/11/2020, 07/19, 11/03/2016, Additional history exists DTap/Tdap Vaccines (3 - Td or Tdap) 02/23/2034 02/24/2024, 08/20/2013, 10/25/2007 Zoster Vaccines Completed 03/31/2018, 12/17, 10/19/2010, Additional history exists RETIRED - COLONOSCOPY-EVERY 5 YRS AGES 18-100 Discontinued 08/11/2020, 08/11/2020, 11/03/2016, Additional history exists Pneumococcal Vaccine: 65+ Years Completed 06/08/2022, 10/17/2014, 07/30/2011, Additional history exists HPV (Gardasil) Vaccine Aged Out No lo nger eligible based on patient's age to complete this topic Hepatitis B Vaccine Aged Out No longe r eligible based on patient's age to complete this topic MENINGOCOCCAL (MENACTRA/MENVEO) Aged Out No longer eligible based on patient's age to complete this topic documented as of this encounter Medical Devices Implanted Type Area Poultice Machine Operator Device Identifier Shelf Expiration Date Model / Serial / Lot Piston Smart .6x4.25 [id number] - [id number] Implanted:Qty : 1 on 06/26/2013 at [facility] Left: Ear GYRUS : ENT 05/17/2022 [id number] / / [id number] Suture Steel 6 B&S19 [id number] - [id number] Implanted:Qty : 4 on 07/14/2019 by Genesis Rea MD at [facility] [place] N/A: Sternum JNJ : [employer] 03/17/2024 [id number] / / [id number] documented as of this encounter Visit Diagnoses Diagnosis Hospital discharge follow-up- Primary Other follow-up examination Multifocal pneumonia Bronchiectasis with (acute) exacerbation (HCC) PAF (paroxysmal atrial fibrillation) (HCC) Atrial fibrillation Post-COVID chronic cough documented in this encounter Advance Directives * Full Code (Latest Code Status on File) Date Activated Date Inactivated Comments 07/14/2019 12:51 PM 07/22/2019 6:22 PM This order reflects the patients wishes and were consensually agreed upon. * Full Code Date Activated Date Inactivated Comments 07/13/2019 6:28 PM 07/14/2019 12:50 PM This orde r reflects the patients wishes and were consensually agreed upon. Question Answer Comments Discussion of Advance Directives occurred with: Patient * Full Code Date Activated Date Inactivated Comments 06/26/2013 11:29 AM 06/26/2013 10:13 PM This ord er reflects the patients wishes and were consensually agreed upon. Healthcare Agents on File Name Relationship Healthcare Agent Relationshi p Communication Constance Tomlinsonczyk Adult Child First Alternate Health Care Agent (per Health Care Power of Purchasing Administrator document) Elisabeth Erickson Adult Child First Alternate Health Care Agent (per Health Care Power of Purchasing Administrator document) Care Teams Video Effects Editor Relationship Specialty Start Date End Date Donn Clarke MD [address] [place] [id number] PCP - General Internal Medicine 12/17/15 documented as of this encounter"
--- OUTSIDE RECORDS SUMMARY | 2024-03-31 12:04 | External Medical Summary | Summary of Care ---
Author Name Unknown Organization [facility] Address [address] [place] [address] Phone [phone] Care Team Providers Care Employee Communications Coordinator Name Role Phone Donn Clarke MD Primary Care Provider + Reason for Visit * Reason Onset Date Comments Adult Annual Wellness Visit, Subsequent Visit Encounter Details Date Type Department Care Team (Late st Contact Info) Description 03/26/2024 10:30 AM EDT Nurse Only Ancillary [facility] [address] [place] [address] [facility] [address] [place] [address] Adult Annual Wellness Visit, Subsequent Visit Allergies Active Allergy Reactions Criticality Noted Date Comments Lorazepam Low 07/27/2019 Codeine Nausea/vomiting Low 10/31/2018 Pollen Wheezing,Cough Low 11/30/2016 documented as of this encounter (statuses as of 03/26/2024) Medications Medication Sig Dispensed Refills Start Date End Date Status ACETAMINOPHEN 500 MG PO TABS Take 1 Tablet by mouth every 4 hours as needed for Pain. Do not take more then 3000 mg in a 24 hr period. Active Probiotic Capsule Take 1 Cap by mouth daily. 11/02/2018 Active aspirin enteric coated 81 MG TBECIndications:Donell nary atherosclerosis of match-e-be[place]wish band coronary artery Take 2 Tabs by mouth [...] 100 Tablet 3 03/24/2023 05/03/20 24 Active Atorvastatin Calcium 80 MG Oral Tablet (Lipitor)Indications :Dyslipidemia, goal LDL below 70 TAKE ONE TABLET BY MOUTH EVERY DAY 90 Tablet 3 05/24/2023 05/30/20 24 Active Triamcinolone Acetonide 55 MCG/ACT Nasal Aerosol (Nasacort Allergy 24HR) Administer 1 Brewster into each nostril daily as needed. Active Famotidine 20 MG Oral Tablet (Pepcid)Indications: Gastroesophageal reflux disease TAKE ONE TABLET BY MOUTH TWICE A DAY 180 Tablet 3 06/21/2023 06/20/20 24 Active Losartan Potassium 100 MG Oral Tablet (Cozaar)Indications: HTN, goal below 140/90 TAKE ONE TABLET BY MOUTH EVERY DAY 100 Tablet 3 07/06/2023 07/05/20 24 Active Ipratropium [place] 0.06 % Nasal Solution (Atrovent) Administer 1 Brewster into each nostril at bedtime. 45 mL [...] morning and 1 Tablet before bedtime. Active Montelukast Sodium 10 MG Oral Tablet (Singulair)Indicatio ns:Moderate persistent asthma without complication TAKE 1 TABLET BY MOUTH EVERYDAY AT BEDTIME 90 Tablet 1 11/30/2023 Active Sodium Chloride 7 % Inhalation Nebulization Solution (Hyper-Kendell) 11/28/2023 Acti ve Benzonatate 100 MG Oral Capsule (Tessalrudy Hughes) Take 1 Capsule by mouth 3 times [...] Active Dupilumab 300 MG/2ML Subcutaneous Solution Pen-injector (Prior Knowledge) Inject 2 mL under the skin every 14 days. 01/02/2024 Active Verapamil HCl ER 120 MG Oral Tablet Extended Release (Isoptin SR)Indications:Coron myra atherosclerosis of match-e-be[place] band coronary artery,PAF (paroxysmal atrial fibrillation) (HCC),HTN, goal below 140/90,Beta-blockers contraindicated,S/P CABG x 2,S/P drug eluting coronary stent placement TAKE ONE TABLET BY MOUTH EVERY MORNING 90 Tablet 3 03/01/2024 Active Loratadine 10 MG Oral Tablet (Claritin) Take 1 Tablet by mouth in the morning. Active HYDROcodone Bit-Homatrop MBr 5-1.5 MG/5ML Oral Solution (Hycodan) TAKE 5 ML BY MOUTH EVERY 6 HOURS NEEDED FOR SEVERE COUGH 03/10/2024 Active Azithromycin 500 MG Oral Tablet (Zithromax) Take 1 Tablet by mouth once a day on Tuesday, Tuesday, and Tuesday only. 03/21/2024 04/18/20 24 Active Ezetimibe 10 MG Oral Tablet (Zetia)Indications:D yslipidemia, goal LDL below 70 TAKE ONE TABLET BY MOUTH EVERY MORNING 90 Tablet 3 03/24/2023 03/26/20 24 Discontinu ed(Refill) Budesonide 0.5 MG/2ML Inhalation Suspension (Pulmicort) TAKE 2ML USING NEBULIZER EVERY 12 HOURS 11/24/2023 03/26/20 24 Discontinu ed(Patient preference /discontin uation) Doxycycline Hyclate 100 MG Oral Tablet Take 1 Tablet by mouth in the morning and 1 Tablet before bedtime. 02/20/2024 03/26/20 24 Discontinu ed(Patient preference /discontin uation) Hospital, Clinic, or Other Facility Administered Medication Ordered Dose Route Frequency Start Date End Date Status methacholine (0 mg/mL) PLACEBO (Provocholine) inhalation solution 3 mLIndications:Shortness of breath 3 mL IN ONCE PRN 07/14/2022 Active documented as of this encounter (statuses as of 03/26/2024) Active Problems Problem Noted Date Diagnosed Date [...] lower eyelid MIS 02/2018 Coronary atherosclerosis of match[place] coronary estella ry 05/16/2007 BPH without obstruction/lower urinary tract symp toms 08/03/2002 Chronic rhinitis 08/03/2002 documented as of this encounter (statuses as of 03/26/2024) Resolved Problems Problem Noted Date Diagnosed Date [...] recommend f/u 3 years [employer] Other*[id number] 06/05/2007 08/24/2016 Overview: Study Title: [employer] Markers for Patients with Cardiovascular Disease Project # [id number] Driver'S License Examiner: Aretha Rodríguez MD [phone] Coronary atherosclerosis of match-e-be[place] band coronary artery 05/16/2007 07/27/2019 ADVANCE DIRECTIVE INFORMATION [...] as of this encounter (statuses as of 03/26/2024) Immunizations Name Administration Dates Next Due COVID-19 mRNA, LNP-s, No Pre serve, 2-Dose Series (Saperion) 10/21/2021,04/20/2021,09/23/2020,08/25 COVID-19, LNP-s, No Preserve , Justyn-sucrose, Ages 12+ (Pfizer) 10/21/2021 COVID-19, MRNA-LNP, 23-24, P F, 30 MCG/0.3 mL, 12 YRS AND ABOVE, IM (PFIZER-Comirnaty) 04/12/2023 Covid-19, Mrna, Lnp-s, Pf, B ivalent, 30 Mcg, IM, 12 yrs and above (Pfizer) 04/07/2022 Pneumococcal Conjugate Vacc, 13 Valent (Prevnar) 10/17/2014 Pneumococcal Conjugate Vacci ne, 20-valent ([id number]) 06/08/2022 Pneumococcal Polysaccharide PPV23 (Pneumovax) 07/30/2011 RSV [...] Preserve, IM 03/23/2022,04/15/2021,04/01/2020,03/27,03/31/2018,03/23/2017,04/01/2016 ,04/02/2015,03/26/2014,04/17/2013,03/19,04/20/2011,04/23/2010, 9,05/28/2008,04/12/2007,04/26/2006,,06/04/2002 Seasonal Influenza, Trivalen t, (IIV3), with Preserv, (Fluzone) 04/02/2015,03/26/2014,04/17/2013,04/13,04/20/2011,04/23/2010,05/06/2009 ,05/28/2008,04/12/2007,04/26/2006 TD - Tetanus/Diptheria (ADULT) 10/25/2007 [...] 12/27/2023 Does the household have a re lar source of income? (Household - for ages [...] Reading Time Taken Comments Blood Pressure 112/60 03/26/2024 10:52 AM EDT Pulse 80 03/26/2024 10:52 AM EDT Temperature 37.2 C (99 F) 03/26/2024 10: 52 AM EDT Respiratory Rate - - Oxygen Saturation - - Inhaled Oxygen Concentration - - Weight 87.4 kg (192 lb 11.2 oz) 024 10:52 AM EDT Height 175.3 cm (5' 9") 03/26/2024 10:5 2 AM EDT Body Mass Index 28.46 03/26/2024 10:52 AM EDT documented in this encounter Functional [...] No 07/14/2019 documented as of this encounter Patient Instructions * Patient Instructions* Negra Cole RN - 03/26/2024 10:39 AM EDT Hi Mr. Crockett, As your primary care physician, I know that regular visits with my patients who have several chronic conditions can go a long way in helping you stay healthy. Many times, the clinic team and I are in touch with you and/or other care team members between office visits to adjust medications, discuss any changes in your health, and review our care plan to make sure it is still meeting your needs. I am dedicated to helping you take a more active role in your overall care. It is important that there are resources available to you, so I created a personalized plan of care with a Health Calendar for you, which is included on the next page of this letter. Below is a list that summarizes your electronic health record: Health Maintenance Due: Health Maintenance Due Topic Date Due DXA Scan 01/27/2023 Influenza Vaccine (FLU shot) (1) 03/18/2024 COVID-19 Vaccine ( season) 2024 Adult Wellness Visit 03/23/2024 Current Medication List: (as of Visit date not found (in office), Visit date not found (telemedicine) ) Current Outpatient Medications Medication Sig Dispense Refill ACETAMINOPHEN 500 MG PO TABS Take 1 Tablet by mouth every 4 hours as needed for Pain. Do not take more then 3000 mg in a 24 hr period. Probiotic Capsule Take 1 Cap by mouth daily. aspirin enteric coated 81 MG TBEC Take 2 Tabs by mouth daily. (Patient taking differently: Take1 Tablet by mouth every evening.) 100 Tab 3 Vitamin D 25 MCG (1000 UT) Oral Tablet Take 1 Tablet by mouth once a day on Tuesday, Tuesday, and Tuesday only. Metamucil 28.3 % Oral Powder (Psyllium) Take by mouth daily. Albuterol Sulfate HFA 108 (90 Base) MCG/ACT Inhalation Aerosol Solution Inhale by mouth 2 Puffsevery 6 hours as needed for Shortness of [...] BY MOUTH EVERY DAY 100 Tablet 3 Atorvastatin Calcium 80 MG Oral Tablet (Lipitor) TAKE ONE TABLET BY MOUTH EVERY DAY 90 Tablet 3 Triamcinolone Acetonide 55 MCG/ACT Nasal Aerosol (Nasacort Allergy 24HR) Administer 1 Brewster into each nostril daily as needed. Famotidine 20 MG Oral Tablet (Pepcid) TAKE ONE TABLET BY MOUTH TWICE A DAY 180 Tablet 3 Losartan Potassium 100 MG Oral Tablet (Cozaar) TAKE ONE TABLET BY MOUTH EVERY DAY 100 Tablet 3 Ipratropium [place] 0.06 % Nasal Solution (Atrovent) Administer 1 Brewster into each nostril at bedtime. 45 mL [...] Solution (Hyper-Kendell) Benzonatate 100 MG Oral Capsule (Tesnidia Hughes) Take 1 Capsule by mouth 3 times [...] Directed Dupilumab 300 MG/2ML Subcutaneous Solution Pen-injector (Prior Knowledge) Inject 2 mL under the skin every 14 days. Doxycycline Hyclate 100 MG Oral Tablet Take 1 Tablet by mouth in the morning and 1 Tablet before bedtime. Verapamil HCl ER 120 MG Oral Tablet Extended Release (Isoptin SR) TAKE ONE TABLET BY MOUTH EVERY MORNING 90 Tablet 3 Loratadine 10 MG Oral Tablet (Claritin) Take 1 Tablet by mouth in the morning. HYDROcodone Bit-Homatrop MBr 5-1.5 MG/5ML Oral Solution (Hycodan) TAKE 5 ML BY MOUTH EVERY 6 HOURS NEEDED FOR SEVERE COUGH Current Facility-Administered Medications Medication Dose Route Frequency Provider Last Rate Last Admin methacholine (0 mg/mL) PLACEBO (Provocholine) inhalation solution 3 mL 3 mL Inhalation Once Macrina Millan MD Current List of Allergies: (as of Visit date not found (in office), Visit date not found (telemedicine) ) Review of patient's allergies indicates: Allergen Reactions Ativan [Lorazepam] Codeine Nausea/vomiting Pollen Wheezing and Cough Most Recent Lab Results: Results for orders placed or performed in visit on 02/14/24 [id number], SERUM Result Value Ref Range B2 Microglobulin, Serum 3.57 (H) <=2.51 mg/L COMPREHENSIVE METABOLIC PANEL Result Value Ref Range BUN 28 (H) 6 - 20 mg/dL Creatinine 1.2 0.6 - 1.2 mg/dL Estimated Glomerular Filtration Rate 63 >=60 mL/min Sodium 138 135 - 146 mmol/L Potassium 4.1 3.5 - 5.1 mmol/L Chloride 105 98 - 107 mmol/L CO2 20 (L) 22 - 32 mmol/L Anion Gap 13 7 - 15 mmol/L Glucose 98 70 - 120 mg/dL Albumin 3.8 3.8 - 5.0 g/dL AST 22 10 - 50 U/L Alkaline Phosphatase 85 35 - 130 U/L Bilirubin, Total 0.4 <=1.2 mg/dL Calcium 9.0 8.4 - 10.2 mg/dL Protein 5.9 (L) 6.0 - 8.3 g/dL ALT 33 10 - 50 U/L SERUM IMMUNOFIXATION Result Value Ref Range Normal/Abnormal Abnormal (A) Normal Immunofixation Interpretation Abnormal, a low-level monoclonal IgG kappa paraprotein is present. IMMUNOGLOBULIN QUANTITATIVE Result Value Ref Range IgG 656 (L) 700 - 1,600 mg/dL IgA 97 70 - 400 mg/dL IgM 60 40 - 230 mg/dL SERUM FREE LIGHT CHAINS Result Value Ref Range [place] Free Light Chains, Serum 22.92 (H) 3.30 - 19.40 mg/L Lambda Free Light Chains, Serum 17.55 5.71 - 26.30 mg/L [place] Lambda Free Light Chains Ratio 1.31 0.26 - 1.65 SERUM PROTEIN ELECTROPHORESIS REFLEX PROFILE Result Value Ref Range Normal/Abnormal Abnormal (A) Normal Protein 5.6 (L) 6.0 - 8.3 g/dL Albumin 3.07 (L) 3.30 - 4.40 g/dL Alpha-1 Globulin 0.20 0.10 - 0.30 g/dL Alpha-2 Globulin 0.92 0.60 - 1.00 g/dL Beta-Globulin 0.74 (L) 0.80 - 1.30 g/dL Gamma-Globulin 0.66 (L) 0.70 - 1.70 g/dL Electrophoresis Interpretation Abnormal. A paraprotein is present that has been previously identified as a monoclonal IgG kappa. Paraprotein concentration is detectable, but less than 0.5 g/dL, unable to be accurately quantified by this method. Decreased gamma fraction. CBC Result Value Ref Range WBC 11.93 (H) 4.00 - 10.80 K/uL RBC 4.81 4.50 - 5.25 M/uL HGB 14.6 14.0 - 16.8 g/dL HCT 43.5 40.0 - 48.4 % MCV 90.4 82.0 - 99.5 fL MCH 30.4 27.0 - 34.0 pg MCHC 33.6 32.0 - 36.0 g/dL RDW 15.7 11.5 - 15.5 % PLT 196 140 - 400 K/uL MPV 10.7 6.6 - 11.1 fL DIFFERENTIAL, TECHNOLOGIST REVIEW Result Value Ref Range WBC 11.93 (H) 4.00 - 10.80 K/uL Neutrophils % 79.0 (H) 40.0 - 75.0 % Lymphocytes % 15.0 (L) 18.0 - 42.0 % Monocytes % 4.0 1.0 - 11.0 % Eosinophils % 1.0 0.0 - 6.0 % Metamyelocytes % 1.0 (H) <=0.0 % Absolute Neutrophils 9.42 (H) 1.80 - 7.70 K/uL Absolute Lymphocytes 1.79 1.00 - 4.80 K/uL Absolute Monocytes 0.48 0.00 - 1.10 K/uL Absolute Eosinophils 0.12 0.00 - 0.70 K/uL Absolute Metamyelocytes 0.12 (H) <=0.00 K/uL nRBCs *Note: Due to a large number of results and/or encounters for the requested time period, some results have not been displayed. A complete set of results can be found in Results Review. Sincerely, Donn Clarke MD 03/26/2024 [facility] Calendar (as of Visit date not found (in office), Visit date not found (telemedicine) ) Care needs Care needs Last completed Due next Bone Density 01/28/2020 01/27/2023 Flu vaccine (recommended) (1) 04/05/2023 03/18/2024 COVID-19 Vaccine (8 - season) 2023 03/18/2024 Adult Wellness Visit 03/23/2023 03/23/2024 Yearly thyroid level check 11/30/2023 11/29/2024 Kidney Function Test 02/14/2024 02/13/2025 Urine albumin/creatinine test 04/22/2022 04/22/2025 Colonoscopy 08/11/2020 08/11/2025 Diphtheria, tetanus & pertussis vaccines (3 - Td or Tdap) 02/24/2024 02/23/2034 As you look over the recommended services, be sure to check with your insurance company to determine what's covered. [employer] is a great tool that helps you review your medical record online, including test results, doctor notes and your health summary. You can also schedule appointments with me and other members of your care team, request prescription refills and ask for advice related to your medical conditions at [email or web address]. Patient Instructions - Fall Prevention (This education is for all patients over 65 regardless of symptoms) Remember to take your current medications as prescribed. In order to prevent falls, you are encouraged to: Exercise Utilize assistive/adaptive devices Avoid multifocal lenses when walking Avoid hazards in home Maintain a regular toileting schedule Any questions please contact our office. Preventing Falls in the Home (This education is for all patients over 65 regardless of symptoms) As you get older, falls are more likely. Thats because your reaction time slows. Your muscles and joints may also get stiffer, making them less flexible. Illness, medications, and vision changes can also affect your balance. A fall could leave you unable to live on your own. To make your home safer, follow these tips: Floors Put nonskid pads under area rugs Remove throw rugs Replace worn floor coverings Tack carpets firmly to each step on carpeted stairs. Put nonskid strips on the edges of uncarpeted stairs Keep floors and stairs free of clutter and cords Arrange furniture so there are clear pathways Clean up any spills right away Bathrooms Install grab bars in the tub or shower Apply nonskid strips or put a nonskid rubber mat in the tub or shower Sit on a bath chair to bathe Use bathmats with nonskid backing Lighting Keep a flashlight in each room Put a nightlight along the pathway between the bedroom and the bathroom [employer] Patient Education Copyright 2008 - 2010 Rosa except where otherwise noted documented in this encounter Progress Notes * Negra Cole RN - 03/26/2024 10:39 AM EDT Adult Annual Wellness Visit: Judith Crockett is a 83 year old male who presents for an Adult Annual Wellness Visit. Depression Screening: Did the patient complete the screening questionnaire for Depression? Yes Is the patient's total score for Depression 15 or greater? No, no further intervention needed, unless requested by patient. Did the patient answer positively to the suicide question? No, no further intervention needed, unless requested by patient. In general, compared to other people your age, what would you say that your health is? Fair Ht Readings from Last 1 Encounters: 03/26/24 1.753 m (5' 9") Wt Readings from Last 1 Encounters: 03/26/24 87.4 kg (192 lb 11.2 oz) Body Mass Index: BMI Less than 30 Body mass index is 28.46 kg/m. BP Readings from Last 1 Encounters: 03/26/24 112/60 Medical/Surgical/Family History Reviewed: Yes Past Medical History: Diagnosis Date Asthma Asthma, [...] 01/12/2023 Chronic rhinitis 08/03/2002 Coronary atherosclerosis of match-[place] coronary artery 05/16/2007 Dyslipidemia, goal LDL below 100 06/24/2009 Elevated prostate specific antigen (PSA) trus bx done 2000? dr floyd in [place](benign) erectile dysfunction 08/30/2002 History of prostate cancer [...] by Md Courtney Galeano MD at ENDOSCOPY [facility] CABG, ARTERIAL, SINGLE N/A 07/14/2019 CORONARY ARTERY BYPASS GRAFT USING ARTERY 1 GRAFT performed by Genesis Rea MD at OR [facility] CATARACT SURGERY,COMPLEX Bilateral 06/2019 COLONOSCOPY 11/15/2011 adenomatous polyp--repeat 5 years COLONOSCOPY W/ BLEEDING CONTROL 08/18/2007 adenomatous polyps--repeat in 1 year COLONOSCOPY W/ LESION REMOVAL, SNARE 08/22/2008 hyperplastic polyps & lympoid aggregate, recommend f/u 3 years COLONOSCOPY, DIAGNOSTIC (RECTUM) 11/03/2016 TVA polyps, diverticulosis, repeat 3 yrs/COLONOSCOPY FLEXIBLE PROXIMAL DIAGNOSTIC performed by Robyn Heller DO at ENDOSCOPY [facility] COLONOSCOPY, DIAGNOSTIC (RECTUM) 08/11/2020 adenomatous polyps, repeat 5 yrs / COLONOSCOPY FLEXIBLE PROXIMAL DIAGNOSTIC performed by Robyn Heller DO at ENDOSCOPY [facility] CYSTOSCOPY 03/31/2010 DESTROY EYELID MARGIN LESION 03/2018 Dr Ruiz EGD, W/ENDOSCOPIC US 04/13/2011 UPPER GI ENDOSCOPY ENDOSCOPIC ULTRASOUND performed by JEFFRY HINES at ENDOSCOPY [facility] EGD, W/ENDOSCOPIC US 08/02/2012 UPPER GI ENDOSCOPY ENDOSCOPIC ULTRASOUND performed by Robyn Heller DO at OR [facility] EGD, W/ENDOSCOPIC US 06/03/2014 liver cyst, CBD dilation, ESOPHAGOGASTRODUODENOSCOPY (EGD), FLEXIBLE, TRANSORAL, ENDOSCOPIC ULTRASOUND performed by Robyn Heller DO at ENDOSCOPY [facility] ERCP 12/07/2020 choledocholithiasis, stent placed, repeat 4 wks / [facility] ERCP 01/30/2021 Choledocholithiasis, stent removed / [facility] INFORMATION thyroid removed INFORMATION 04/04/2006 Appendectomy INFORMATION Left 2012 Smart Stapes Piston Ear Implant- Mri Safe INTERSTITIAL RADIATION APPLICATION, COMPLEX 08/25/2006 Performed by FADUMO YATES at [facility] Log [id number] LAPAROSCOPY; CHOLECYSTECTOMY 12/09/2020 MISCELLANEOUS ORDER ([facility] ONLY) Left 03/08/2018 Take Down of Asael's Flap - Dr. Pascale GARCIA, 1ST STAGE; FACE, HANDS, FEET, NERVE Left 02/15/2018 Dr. Ashraf-left lower lid MOH's repair NASAL/SINUS ENDOSCOPY, SURGICAL ?1989 Dr Santillan at [facility] NASAL/SINUS ENDOSCOPY, SURGICAL 09/2002 Dt Stetz NEEDLE/CATHETER PLACEMENT, PROSTATE 08/25/2006 Performed by FADUMO YATES at [facility] Log [id number] REMOVAL OF APPENDIX 2005 REPAIR ARM TENDON/MUSCLE 2000 REVISION OF MIDDLE EAR BONE 06/26/2013 STAPEDECTOMY REESTABLISH OSSICULAR CONTINUITY performed by Jose Morrison MD at [facility] ULTRASONIC GUIDE, INTERSTITIAL RADIOELEMENT 08/25/2006 Performed by FADUMO YATES at [facility] Log [id number] UMBIL HERNIA REPAIR (REDUCIBLE) AGE 5+YR 11/2020 Dr. leiva ENDOSCOPIC 01/30/2021 kidney cyst / [facility] TRANSRECTAL (GEN SURG) 12/2005 trus biopsy VASECTOMY 01/1998 dr valdivia Family History Problem Relation Name Age of Onset Cancer Mother breast Stroke Mother Cancer Father prostate,bladder Other (pulmonary embolism [Other]) Father after dx with cancer Has patient ever had cancer? History of cancer, type: prostate Social History Tobacco Use Smoking status: Former Current packs/day: 0.00 Average packs/day: 1 pack/day for 25.0 years (25.0 ttl pk-yrs) Types: Cigarettes Start date: 1960 Quit date: 07/18/1970 Years since quittin.7 Passive exposure: Never Smokeless tobacco: Former Quit date: 1970 Substance Use Topics Alcohol use: Yes Alcohol/week: 5.0 standard drinks of alcohol Types: 5 1.5 oz of liquor per week Comment: one drink three times a week Vaping/E-Cigarette Use Vaping/E-Cigarette Use Never User Vaping/E-Cigarette Substances Vaping/E-Cigarette Devices Tobacco/Alcohol screening completed today? Yes Hospital Care: Admissions (within the last year): Hospital, Location: [facility] Date of Admission: 11/23-11/25 and 03/08-03/10 ER within 30 days: Yes, when: [facility] and where: 03/08 Does the patient have an Advance Directives/Living Will? Yes Last Physical Exam: Last physical exam: 03/14 Does patient see primary provider regularly? Yes Does patient see other providers? Yes, Specialist Patient Care Team updated? Yes Review of patient's allergies indicates: Allergen Reactions Ativan [Lorazepam] Codeine Nausea/vomiting Pollen Wheezing and Cough Immunization History Administered Date(s) Administered COVID-19 mRNA, LNP-s, No Preserve, 2-Dose Series (Saperion) 08/25/2020, 09/23/2020, 04/20/2021, 10/21/2021 COVID-19, LNP-s, No Preserve, Justyn-sucrose, Ages 12+ (Pfizer) 10/21/2021 COVID-19, MRNA-LNP, 23-24, PF, 30 MCG/0.3 mL, 12 YRS AND ABOVE, IM (PFIZER- Comirnaty) 04/12/2023 Covid-19, Mrna, Lnp-s, Pf, Bivalent, 30 Mcg, IM, 12 yrs and above (Pfizer) 04/07/2022 Pneumococcal Conjugate Vacc, 13 Valent (Prevnar) 10/17/2014 Pneumococcal Conjugate Vaccine, 20-valent ([id number]) 06/08/2022 Pneumococcal Polysaccharide PPV23 (Pneumovax) 09/04/2004, 07/30/2011 RSV Vac., Bivalent, Perfusion F, Pf,0.5 Ml (Abrysvo) 07/19/2023 RSV Vac., Recomb, Adjuvant, PF,0.5 Ml (Arexvy) 08/20/2023 Season Influenza, Quad, PF, Adjuvanted, 65+ Yrs, IM (FLUAD) 04/01/2020 Seasonal Influenza Virus Vaccine, Unspecified Formulation 06/04/2002, 05/30/2003, 04/26/2006, 04/12/2007, 05/28/2008, 05/06/2009, 04/23/2010, 04/20/2011, 04/13/2012, 04/17/2013, 03/26/2014, 04/02/2015, 04/01/2016, 03/23/2017, 03/31/2018, 03/27/2019, 04/01/2020 Seasonal Influenza, PF, 6 M & above, IM , (FluLaval or Fluzone) 03/31/2018, 03/27/2019 Seasonal Influenza, Quadrivalent Hd (Fluzone Hd) 04/15/2021, 03/23/2022, 04/05/2023 Seasonal Influenza, Quadrivalent, No Preserve, IM 06/04/2002, 05/30/2003, 04/26/2006, 04/12/2007, 05/28/2008, 05/06/2009, 04/23/2010, 04/20/2011, 04/13/2012, 04/17/2013, 03/26/2014, 04/02/2015, 04/01/2016, 03/23/2017, 03/31/2018, 03/27/2019, 04/01/2020, 04/15/2021, 03/23/2022 Seasonal Influenza, Trivalent, (IIV3), with Preserv, (Fluzone) 06/04/2002, 05/30/2003, 04/26/2006, 04/12/2007, 05/28/2008, 05/06/2009, 04/23/2010, 04/20/2011, 04/13/2012, 04/17/2013, 03/26/2014, 04/02/2015 TD - Tetanus/Diptheria (ADULT) 10/25/2007 TDAP (age 10 and older)(Boostrix) 08/20/2013 TDAP, Age 7 and older, IM (Adacel) 02/24/2024 Varicella Zoster Vaccine (Adult) 10/19/2010 Zoster Vaccine Recombinant (Shingrix) 10/19/2010, 01/13/2018, 03/31/2018 Current Outpatient Medications Medication Sig Dispense Refill [...] BY MOUTH EVERY DAY 100 Tablet 3 Atorvastatin Calcium 80 MG Oral Tablet (Lipitor) TAKE ONE TABLET BY MOUTH EVERY DAY 90 Tablet 3 Triamcinolone Acetonide 55 MCG/ACT Nasal Aerosol (Nasacort Allergy 24HR) Administer 1 Brewster into each nostril daily as needed. Famotidine 20 MG Oral Tablet (Pepcid) TAKE ONE TABLET BY MOUTH TWICE A DAY 180 Tablet 3 Losartan Potassium 100 MG Oral Tablet (Cozaar) TAKE ONE TABLET BY MOUTH EVERY DAY 100 Tablet 3 Ipratropium [place] 0.06 % Nasal Solution (Atrovent) Administer 1 Brewster into each nostril at bedtime. 45 mL [...] the morning and 1 Tablet before bedtime. Montelukast Sodium 10 MG Oral Tablet (Singulair) [...] Directed Dupilumab 300 MG/2ML Subcutaneous Solution Pen-injector (Prior Knowledge) Inject 2 mL under the skin every14 days. Verapamil HCl ER 120 MG Oral Tablet Extended Release (Isoptin SR) TAKE ONE TABLET BY MOUTH EVERY MORNING 90 Tablet 3 Loratadine 10 MG Oral Tablet (Claritin) Take 1 Tablet by mouth in the morning. HYDROcodone Bit-Homatrop MBr 5-1.5 MG/5ML Oral Solution (Hycodan) TAKE 5 ML BY MOUTH EVERY 6 HOURS NEEDED FOR SEVERE COUGH Azithromycin 500 MG Oral Tablet (Zithromax) Take 1 Tablet by mouth once a day on Tuesday, Tuesday,and Tuesday only. Ezetimibe 10 MG Oral Tablet (Zetia) Take 1 Tablet by mouth in the morning. 90 Tablet 3 Current Facility-Administered Medications Medication Dose Route Frequency Provider Last Rate Last Admin methacholine (0 mg/mL) PLACEBO (Provocholine) inhalation solution 3 mL 3 mL Inhalation Once PRN Macrina Bhat MD Patient Active Problem List Diagnosis BPH without [...] S/P CABG x 2 Coronary atherosclerosis of [place] coronary artery Postoperative hypothyroidism MGUS (monoclonal gammopathy of unknown significance) History of osteoporosis PAF (paroxysmal atrial fibrillation) (HCC) Bronchiectasis without complication (HCC) Medication Compliance: Patient is able to obtain all of his medications? Yes Patient takes medications as prescribed? Yes Patient manages own medications: Yes Patient uses a pill box? Yes, refill(s) completed by self Dental Exam: Yes: Every 6 Months Eye Screening: Yes: Every year Are you having trouble with hearing? Yes Do you use an assistive device to help your hearing? No Exercise Screening: exercises 1-2 times per week Nutrition Assessment: Eats a balanced diet and Eats three meals a day Pain Screening: Are you having any pain? No Sleep Screening Tool 'STOP': Do you snore? No Do you feel fatigued during the day? No Do you wake up feeling like you haven't slept? No Have you been told you stop breathing at night? No Do you gasp for air or choke while sleeping? No Have you been told you have Sleep Apnea? No Do you have high blood pressure or are on medication(s) to control high blood pressure? No SCORE: If you check YES to two or more questions, make a referral for Obstructive Sleep Apnea Patient and Caregiver Support System: Patient lives with a spouse Means of Transportation: Drives. Not a concern. Patient lives in One Story - with basement stairs: 13 with a railing Community Resources: Not Applicable Functional Status and ADL Skills: Has patient ever had an amputation? No Functional Assessment: 90- Able to carry on normal activity, minor symptoms of disease Ambulation: Patient ambulates without assistive device. Independent Dressing: Gets clothes and dresses without any assistance: Independent Able to move freely in chair or bed including turning over: Independent Repositioning (bed or chair): Not applicable Transfers: Independent Toileting: Goes to bathroom, uses toilet, arranges clothes and returns without any assistance: Independent Toileting: continent of bladder and continent of bowel Feeding: Self Bathing: Self; walk in shower with grab bar Requires none assistance with ADLs. Instrumental ADL's: Shopping: Independent Housekeeping: Independent Handling Finances: Independent DME Vendor Name: Not Applicable Fall Risk Assessment: Can the patient demonstrate that he can stand from a sitting position? Yes Has the patient had a fall within the last 6 months? No Does the patient have a problem with his gait or balance? No Does the patient take 4 or more prescription medicines? Yes Does the patient use sedatives or narcotics? No Fall Risk Factors Present: Uses more than 4 medications Older than age 70 Wqf-Mf-mkr-Go Test: Time began at 1030. Patient stood from sitting position and walked approximately 10 feet, returned and sat down. Total time for uas-sp-cku-go test was 10 seconds. Mtn-Wx-nmu-Go Test completed? Yes Gender Specific Preventative Plan: Health Maintenance Topic Date Due DXA Scan 01/27/2023 Influenza Vaccine (FLU shot) (1) 03/18/2024 COVID-19 Vaccine ( - 2022-24 season) 2024 TSH 11/29/2024 GFR 02/13/2025 Depression Monitoring 03/26/2025 Adult Wellness Visit 03/26/2025 Albumin/Creatinine Ratio 04/22/2025 Colonoscopy 08/11/2025 DTap/Tdap Vaccines (3 - Td or Tdap) 02/23/2034 Zoster Vaccines Completed Pneumococcal Vaccine: 65+ Years Completed Hepatitis B Vaccine Aged Out MENINGOCOCCAL (MENACTRA/MENVEO) Aged Out HPV (Gardasil) Vaccine Aged Out RETIRED - COLONOSCOPY-EVERY 5 YRS AGES 18-100 Discontinued Follow Up/ Referrals/Handouts: No further action needed Routine general medical examination at a health care facility (Primary) Risk and functional assessment AWV completed today Moderate persistent asthma with acute exacerbation - Med reconciliation completed and compliance discussed. - pt to continue present medications. BPH without obstruction/lower urinary tract symptoms - Med reconciliation completed and compliance discussed. - pt to continue present medications. Bronchiectasis without complication (HCC) - Med reconciliation completed and compliance discussed. - pt to continue present medications. Chronic rhinitis - Med reconciliation completed and compliance discussed. - pt to continue present medications. Atherosclerosis of [place] coronary artery of [place] heart without angina pectoris - Med reconciliation completed and compliance discussed. - pt to continue present medications. Gastroesophageal reflux disease without esophagitis -continue following with pcp History of prostate cancer -continue following with pcp PSA Results: Lab Results Component Value Date/Time PSA - [facility] <0.02 12/02/2022 09:00 AM PSA - [facility] <0.02 08/02/2022 08:59 AM PSA - [facility] <0.02 01/13/2022 08:57 AM PSA - [facility] <0.02 10/03/2019 12:27 PM PSA - [facility] 0.02 05/17/2018 09:21 AM PSA - [facility] 0.03 06/03/2017 07:59 AM PSA SCREENING 0.26 02/15/2011 08:35 AM PSA SCREENING RESULTS RECHECKED 02/15/2011 08:35 AM PSA SCREENING 0.23 01/21/2010 10:04 AM HTN, goal below 140/90 - Med reconciliation completed and compliance discussed. - pt to continue present medications. BP Readings from Last 3 Encounters: 03/26/24 112/60 03/14/24 112/60 02/27/24 112/60 MGUS (monoclonal gammopathy of unknown significance) -continue following with hem/onc Mild depression - Med reconciliation completed and compliance discussed. - pt to continue present medications. Mixed hyperlipidemia - Med reconciliation completed and compliance discussed. - pt to continue present medications. Lipid Panel Results: Results for orders placed or performed in visit on 08/19/23 LIPID PANEL WITH DIRECT LDL IF TG IS HIGH Result Value Ref Range Triglycerides 90 <=174 mg/dL Cholesterol 137 <200 mg/dL HDL Cholesterol 55 >39 mg/dL Non-HDL Cholesterol 82 <=159 mg/dL LDL Cholesterol 64 <=129 mg/dL PAF (paroxysmal atrial fibrillation) (HCC) - Med reconciliation completed and compliance discussed. - pt to continue present medications. Postoperative hypothyroidism - Med reconciliation completed and compliance discussed. - pt to continue present medications. TSH Results: Lab Results Component Value Date/Time TSH - [facility] 0.87 11/30/2023 12:42 PM TSH - [facility] 0.22 (L) 11/04/2023 08:38 AM TSH - [facility] 0.11 (L) 10/12/2023 10:43 AM TSH - [facility] 1.08 09/11/2019 09:32 AM TSH - [facility] 9.34 (H) 08/07/2019 12:37 PM TSH - [facility] 9.45 (H) 07/27/2019 11:19 AM Follow Up: Return in 1 year (on 03/26/2025) for 12 month Subsequent Adult Wellness Visit. | For: 12 month Subsequent Adult Wellness Visit | Check-out note: 12 month Subsequent Adult Wellness Visit Would patient like to schedule next AWV visit? Yes Negra Cole, RN AD8 Dementia Screening Interview Person answering questions: patient Remember, "Yes, a change" indicates that there has been a change in the last several years caused by cognitive (thinking and memory) problems 1. Problems with judgement (eg: problems making decisions, bad financial decisions, problems with thinking). No (0) 2. Less interest in hobbies/activities. No (0) 3. Repeats the same things over and over (questions, stories, or statements). No (0) 4. Trouble learning how to use a tool, appliance, or gadget (eg: VCR, computer, microwave, remote control). No (0) 5. Forgets correct month or year. No (0) 6. Trouble handling complicated financial affairs (eg: balancing checkbook, income taxes, paying bills). No (0) 7. Trouble remembering appointments. No (0) 8. Daily problems with thinking and/or memory. No (0) TOTAL AD8: 0 - AD8 Dementia Screening Score The final score is a sum of the number items marked "Yes, A Change". 0 - 1: Normal cognition; 2 or greater: Cognitive impairments is likely to be present - further testing required documented in this encounter Miscellaneous Notes * Pt Handout (on AVS) - Negra Cole RN - 03/26/2024 11:04 AM EDT [id number] Preventing Falls: How to Prepare and What to Do Falling is not something you want to think about. But it can make a big difference to plan ahead. If you're prepared, you'll know how to get help. And you'll be less likely to panic if you fall. Thismeans you'll be able to do what's needed to get help right away. How to prepare Have someone check on you daily, either in person or by phone. Keep a list of emergency numbers near the phone. Always have a way to call for help. Keep a cell phone with you at all times. Or talk with your healthcare provider about how to set up a home monitoring service. This involves wearing a small device around your neck or wrist. If you fall, you can press the button on the device. This alerts emergency responders. Talk with your healthcare provider about an exercise program that's right for you. Regular exercise may reduce the risk of falling and the risk for injury related to a fall. Have good lighting in your home. Don't use throw rugs, because they can raise your risk of tripping and falling. Add grab bars in the bathroom to help reduce the risk of falling. Small changes canmake your home safer. Talk with your healthcare provider about making your home safer. What to do if you fall Above all, try to stay calm: If you start to fall, try to relax your body. This will reduce the impact of the fall. After you fall, press your monitor button, or use your phone to call for help. Don't wilson to get up. First, make sure you're not hurt. Roll onto your side, then crawl to a chair. Pull yourself up onto the chair slowly. Get checked if you struck your head, lost consciousness, were confused afterward, or have any other concerns for injury. Tell your healthcare provider that you fell. They can check you for injuries as needed, try to determine what made you fall, and help prevent you from falling again. A note to family and friends If you're with a loved one when they start to fall, don't try to stop the fall. Ease the person to the floor carefully, so neither of you gets hurt. Don't leave the person alone. And don't try to move them, especially if they may have hurt their head or neck. Check for injuries. If help is needed right away, call 911. Last Reviewed Date: 06/17/202219990393-7289 [employer]. All rights reserved. This information is not intended as a substitute for professional medical care. Always follow your healthcare professional's instructions. * Pt Handout (on AVS) - Negra Cole RN - 03/26/2024 11:04 AM EDT Images from the original note were not included. 93220 Exercises to Prevent Falls Certain types of exercises may help make you less likely to fall. Try the ones below or do other exercises that your healthcare provider suggests. Depending on your health, you may need to start slowly. Don't let that stop you. Even small amountsof exercise can help you. Talk with your healthcare provider before starting any exercise program. Improve balance Many types of exercise can help improve balance. Andrea chi and yoga are good examples. Here's anotherone to try. You can do it anytime and almost anywhere. Stand next to a counter or solid support. Push yourself up onto your tiptoes. Hold for 5 seconds. If you start to lose your balance, hold on to the counter. Rest and repeat 5 times. Work up to holding for 20 to 30 seconds, if you can. Increase flexibility Being more flexible makes it easier for you to move around safely. Try exercises like the seatedhamstring stretch. o Sit in a chair and put one foot on a stool. o Straighten your leg and reach with both hands down either side of your leg. Reach as far down your leg as you can. o Hold for about 20 seconds. o Go back to the starting position. Then repeat 5 times. Switch legs. o o Build strength o Resistance exercises help build strength. You can do them without equipment. Or you can use weights, elastic bands, or special machines. One such exercise is called the biceps curl. You can hold a 1-pound weight or even a can of soup. Do this exercise at least 3 times a week. Strive for every day. Sit up straight in a chair. Keep your elbow close to your body and your wrist straight. Bend your arm, moving your hand up to your shoulder. Then slowly lower your arm. Repeat 5 times. Switch to the other arm. Build your staying power Aerobic exercises make your heart and lungs stronger so you can keep moving longer. Walking and swimming are 2 of the best types of exercises you can do. Using a stationary bike is great, too. Find an aerobic exercise that you enjoy. Start slowly and build up. Even 5 minutes is helpful. Aim for a goal of 30 minutes, at least 3 times a week. You don't have to do 30 minutes in 1 session. Break it up and walk a little throughout the day. Starting out safely and slowly Start easy. Slowly work up to doing more. Talk with your healthcare provider about the best exercises for you. Call senior centers or health clubs about exercise programs. If needed, have a family member watch you walk every so often to check your stability. Exercise with a friend. Choose an activity you both enjoy. Be sure to gently warm up and cool down. Drink fluids, such as water, to stay hydrated. If your provider recommended that you limit fluids, ask them how much is OK to drink while exercising. Consider andrea chi or yoga to strengthen your balance. Try exercises that you can do anytime, anywhere. Here are 2 examples. Have someone with you whenyou first try these: o Practice walking by placing one foot right in front of the other. o Stand up and sit down 10 times. Repeat this throughout the day. Last Reviewed Date: 05/18/202219991639-4047 [employer]. All rights reserved. This information is not intended as a substitute for professional medical care. Always follow your healthcare professional's instructions. documented in this encounter Plan of Treatment Upcoming Encounters Date Type Department Care Team (Late st Contact Info) Description 03/28/2024 1:45 PM EDT Office Visit MOHS Surgery [facility] [address] [place] [address] Ama Galvez MD [address] [place] [address] 04/03/2024 9:00 AM EDT Scheduled Telephone Care Coordination and Integration [address] [place] [address] Clary Chakraborty, Community [facility] Desizing Machine Operator Head End [address] [place] [address] 04/05/2024 10:35 AM EDT Imaging Cardiac Studies, [facility] [address] [place], [place] [id number] 04/10/2024 8:00 AM EDT Scheduled Telephone Care Coordination and Integration [address] [place] [address] Clary Chakraborty, Community Health Desizing Machine Operator Head End [address] [place] [address] 04/26/2024 9:15 AM EDT Imaging Radiology [address] [facility] [place] [address] 05/04/2024 3:30 PM EDT Office Visit Cardiology, [address] [place] [address] Jonnathan Song PA-C [address] [facility] [address] 05/28/2024 9:15 AM EST Imaging Radiology [address] [place] [address] 06/05/2024 1:40 PM EST Office Visit Pulmonary Medicine, [address] [place] [address] Sundeep [facility]pez MD [address] [facility] [address] 07/27/2024 11:15 AM EST Office Visit Dermatology [facility] [address] [facility] [place] [address] Donn Ornelas MD [address] [facility] [place] [address] 10/25/2024 2:00 PM EDT Office Visit General Internal Medicine [facility] [address] [place], [place] [address] Donn Clarke MD 200 [facility] [place] [address] 02/18/2025 2:00 PM EDT Office Visit Hematology/Oncology [facility] [address] [place] [id number] Smita Miller MD 200 [facility] [place] [address] 03/29/2025 10:30 AM EDT Nurse Only [facility] [address] [facility] [place] [address] David, Nurse Annual Wellness [facility] 132 [facility] [place] [address] Scheduled Procedures Name Priority Associated Diagnoses Date/Ti me COLONOSCOPY FLEXIBLE PROXIMAL DIAGNOSTIC Recall History of colon polyps Health Maintenance Due Date Last Done Comments DXA Scan 01/27/2023 01/28/2020, 03/13/2008 COVID-19 Vaccine ( season) 2024 04/12/2023, 04/07/2022, 10/21/2021, Additional history exists Influenza Vaccine (FLU shot) (#1) 2024 04/05/2023, 03/23/2022, 03/23/2022, Additional history exists TSH 11/29/2024 11/30/2023, 10/16, 10/12/2023, Additional history exists GFR 02/13/2025 02/14/2024, 11/15, 08/19/2023, Additional history exists Adult Wellness Visit 03/26/2025 03/26/2024, 03/23/2023, 03/16/2022 Depression Monitoring 03/26/2025 03/26/2024 Albumin/Creatinine Ratio 04/22/2025 022, 04/25/2015, 04/29/2014 Colonoscopy [...] this encounter Medical Devices Implanted Type Area District Resource Officer Device Identifier Shelf Expiration Date Model / Serial / Lot Piston Smart .6x4.25 [id number] - [id number] Implanted:Qty : 1 on 06/26/2013 at [facility] Left: Ear GYRUS : ENT 05/17/2022 [id number] / / [id number] Suture Steel 6 B&S19 [id number] - [id number] Implanted:Qty : 4 on 07/14/2019 by Genesis Rea MD at [facility] N/A: Sternum JNJ : [employer] 03/17/2024 [id number] / / [id number] documented as of this encounter Visit Diagnoses Diagnosis Routine general medical examination at a health care facility- Primary Risk and functional assessment Screening for unspecified condition Moderate persistent asthma with acute exacerbation BPH without obstruction/lower urinary tract symptoms Hypertrophy of prostate without urinary obstruction and other lower urinary tract symptoms (LUTS) Bronchiectasis without complication (HCC) Bronchiectasis without acute exacerbation Chronic rhinitis Atherosclerosis of [place] coronary artery of [place] heart without angina pectoris Gastroesophageal reflux disease without esophagitis Esophageal reflux History of prostate cancer Personal history of malignant neoplasm of prostate HTN, goal below 140/90 Unspecified essential hypertension MGUS (monoclonal gammopathy of unknown significance) Monoclonal paraproteinemia Mild depression Depressive disorder, not elsewhere classified Mixed hyperlipidemia PAF (paroxysmal atrial fibrillation) (HCC) Atrial fibrillation Postoperative hypothyroidism Postsurgical hypothyroidism documented in this encounter Advance Directives * [...] Relationship Healthcare Agent Relationshi p Communication Constance Karlo Adult Child First Alternate Health Care Agent (per Health Care Power of Stranding Machine Operator document) Elisabeth Erickson Adult Child First Alternate Health Care Agent (per Health Care Power of Stranding Machine Operator document) Care Teams Employee Communications Coordinator Relationship Specialty Start Date End Date Donn Clarke MD [address] [place] [address] PCP - General Internal Medicine 12/17/15 documented as of this encounter
--- OUTSIDE RECORDS SUMMARY | 2024-03-31 12:04 | External Medical Summary | Summary of Care ---
Author Name Unknown Organization [facility] Address [address] [place] [address] Phone [phone] Care Team Providers Care Drawer In Plain Loom Name Role Phone Donn Clarke MD Primary Care Provider + Reason for Visit * Reason Onset Date Comments Medication Refill 03/26/2024 Encounter Details Date Type Department Care Team (Late st Contact Info) Description 03/26/2024 Refill Cardiology, [facility] [address] [email or web address] [place] [address] Percy Gibbs, PAMaicoC [address] [facility] [place] [address] Dyslipidemia, goal LDL below 70 Allergies Active Allergy Reactions Criticality Noted Date [...] Active aspirin enteric coated 81 MG TBECIndications:Donell lemons atherosclerosis of [place] coronary artery Take 2 Tabs by mouth [...] Aerosol (Nasacort Allergy 24HR) Administer 1 [place] into each nostril daily as needed. Active Famotidine 20 MG Oral Tablet (Pepcid)Indications: Gastroesophageal reflux disease TAKE ONE TABLET BY MOUTH TWICE A DAY 180 Tablet 3 06/21/2023 06/20/20 24 Active Losartan Potassium 100 MG Oral Tablet (Cozaar)Indications: HTN, goal below 140/90 TAKE ONE TABLET BY MOUTH EVERY DAY 100 Tablet 3 07/06/2023 07/05/20 24 Active Ipratropium [place] 0.06 % Nasal Solution (Atrovent) Administer 1 [place] into each nostril at bedtime. 45 mL [...] Acti ve Benzonatate 100 MG Oral Capsule (Tesnidia Hughes) [...] Active Dupilumab 300 MG/2ML Subcutaneous Solution Pen-injector (AppTrigger) Inject 2 mL under the skin every 14 days. 01/02/2024 Active Verapamil HCl ER 120 MG Oral Tablet Extended Release (Isoptin SR)Indications:Coron myra atherosclerosis of [place] coronary artery,PAF (paroxysmal atrial fibrillation) (HCC),HTN, goal [...] Tablet (Zetia)Indications:D yslipidemia, goal LDL below 70 Take 1 Tablet by mouth in the morning. 90 Tablet 3 03/26/2024 Active Ezetimibe 10 MG Oral Tablet (Zetia)Indications:D yslipidemia, goal LDL below 70 TAKE ONE TABLET BY MOUTH EVERY MORNING 90 Tablet 3 03/24/2023 03/26/20 24 Discontinu ed(Refill) Hospital, Clinic, or Other [...] single drug-eluting stent (3.0 x 15 mm [place]). 3. Successful PCI of ostial to mid [...] lower eyelid MIS 02/2018 Coronary atherosclerosis of [place] coronary estella ry 05/16/2007 BPH without obstruction/lower [...] recommend f/u 3 years [employer] Other*[id number] 06/05/2007 08/24/2016 Overview: Study Title: Genomic Markers for Patients with Cardiovascular Disease Project # [id number] Early Childhood Education Worker: Aretha Rodríguez MD [phone] Coronary atherosclerosis of [place] coronary artery 05/16/2007 07/27/2019 ADVANCE DIRECTIVE INFORMATION [...] mRNA, LNP-s, No Pre serve, 2-Dose Series ([place]) 10/21/2021,04/20/2021,09/23/2020,08/25 COVID-19, LNP-s, No Preserve , Justyn-sucrose, Ages 12+ (Pfizer) 10/21/2021 COVID-19, MRNA-LNP, 23-24, P F, 30 MCG/0.3 mL, 12 YRS AND ABOVE, IM (PFIZER-Comirnaty) 04/12/2023 Covid-19, Mrna, Lnp-s, Pf, B ivalent, 30 Mcg, IM, 12 yrs and above (Pfizer) 04/07/2022 Pneumococcal Conjugate Vacc, 13 Valent (Prevnar) 10/17/2014 Pneumococcal Conjugate Vacci ne, 20-valent ([id number]) 06/08/2022 Pneumococcal Polysaccharide PPV23 (Pneumovax) 07/30/2011 RSV [...] No 12/27/2023 Does the household have a [facility] source of income? (Household - for ages [...] Telephone Encounter - Percy Gibbs PA-C - 03/26/2024 11:12 AM EDTSigned Prescriptions: Disp Refills Ezetimibe 10 MG Oral Tablet (Zetia) 90 Tab*3 Sig: Take 1 Tablet by mouth in the morning. Authorizing Provider: PERCY GIBBS * Telephone Encounter - Negra Cole RN - 03/26/2024 10:49 AM EDT Pending Prescriptions: Disp Refills Ezetimibe 10 MG Oral Tablet (Zetia) 90 Tab*3 Sig: Take 1 Tablet by mouth in the morning. 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) History of osteoporosis PAF (paroxysmal atrial fibrillation) (HCC) Bronchiectasis without complication (HCC) Labs: Lab Results Component Value Date/Time CREATININE - [facility] 1.2 02/14/2024 10:42 AM CREATININE - [facility] 1.0 04/30/2020 09:46 AM CREATININE, RANDOM URINE - [facility] 148 04/22/2022 08:08 AM CREATININE, RANDOM URINE - [facility] 134 04/25/2015 08:00 AM CREATININE-OUTSIDE LAB 0.92 12/06/2020 12:00 AM Lab Results Component Value Date/Time POTASSIUM - [facility] 4.1 02/14/2024 10:42 AM POTASSIUM - [facility] 3.8 04/30/2020 09:46 AM POTASSIUM POCT - [facility] 3.8 07/14/2019 01:26 PM POTASSIUM, WHOLE BLOOD - [facility] 4.3 07/14/2019 03:37 PM POTASSIUM-OUTSIDE LAB 3.4 (A) 12/06/2020 12:00 AM Lab Results Component Value Date/Time TSH - [facility] 0.87 11/30/2023 12:42 PM TSH - [facility] 1.08 09/11/2019 09:32 AM Lab Results Component Value Date/Time LDL CHOLESTEROL (CALCULATED) - [facility] 64 08/19/2023 10:18 AM LDL CHOLESTEROL (CALCULATED) - [facility] 93 01/13/2022 08:57 AM LDL CHOLESTEROL (CALCULATED) - [facility] 66 07/27/2019 11:19 AM LDL CHOLESTEROL (CALCULATED) - [facility] 94 05/19/2018 08:57 AM LDL CHOLESTEROL (DIRECT MEASURE) - [facility] 65 06/14/2022 12:49 PM LDL CHOLESTEROL (DIRECT MEASURE) - [facility] NOT APPLICABLE 07/27/2019 11:19 AM LDL CHOLESTEROL (DIRECT MEASURE) - [facility] NOT APPLICABLE 05/19/2018 08:57 AM Lab Results Component Value Date/Time ALT - [facility] 33 02/14/2024 10:42 AM ALT - [facility] 13 10/03/2019 12:27 PM ALTERNARIA IGE - [facility] <0.20 07/15/2021 08:12 AM Hemoglobin AIC Results: Lab Results Component Value Date/Time HEMOGLOBIN A1C - [facility] 5.2 07/13/2019 06:42 PM ` documented in this encounter Plan of Treatment Upcoming Encounters Date Type Department Care Team (Late st Contact Info) Description 03/28/2024 1:45 PM EDT Office Visit MOHS Surgery [facility] [address] [place] [address] Ama Galvez MD [address] [place] [address] 04/03/2024 9:00 AM EDT Scheduled Telephone Care Coordination and Integration [address] [place] [address] Clary Chakraborty, [facility] [employer] Color Mixer [address] [place] [address] 04/05/2024 10:35 AM EDT Imaging Cardiac Studies, [facility] 132 [facility] [place] [address] 04/10/2024 8:00 AM EDT Scheduled Telephone Care Coordination and Integration [address] [place] [address] Clary Chakraborty, [facility] [employer] [address] [place] [address] 04/26/2024 9:15 AM EDT Imaging Radiology [address] 132 [facility] [place] [address] 05/04/2024 3:30 PM EDT Office Visit Cardiology, [facility] 132 [facility] [place] [address] Percy Gibbs PAMaicoC [address] [place] [address] 05/28/2024 9:15 AM EST Imaging Radiology [address] 132 [facility] [place] [address] 06/05/2024 1:40 PM EST Office Visit Pulmonary Medicine, [facility] 132 [place] [address] Sundeep López MD [address] [place] [address] 07/27/2024 11:15 AM EST Office Visit Dermatology [facility] [address] [place] [address] Donn Ornelas MD 200 [facility] [place] [address] 10/25/2024 2:00 PM EDT Office Visit General Internal Medicine [facility] [address] [place], [place] [address] Donn Clarke MD 200 [facility] [place] [address] 02/18/2025 2:00 PM EDT Office Visit Hematology/Oncology [facility] 200 [facility] [place] [phone] Smita Miller MD 200 [facility] [place], [place] [address] 03/29/2025 10:30 AM EDT Nurse Only Ancillary [facility] [address] [facility], Nurse Annual Wellness [address] [place] [address] Scheduled Procedures Name Priority Associated Diagnoses Date/Ti [...] this encounter Medical Devices Implanted Type Area Allergy And Immunology Chief Device Identifier Shelf Expiration Date Model / Serial / Lot Jenna Smart .6x4.25 [id number] - [id number] Implanted:Qty : 1 on 06/26/2013 at [facility] Left: Ear GYRUS : ENT 05/17/2022 [id number] / / [id number] Suture Steel 6 B&S19 M654g - [id number] Implanted:Qty : 4 on 07/14/2019 [place] [facility] [place]A: Giovani RAMIREZ : [employer] 03/17/2024 [id number] / / [id number] documented as of this encounter Visit Diagnoses Diagnosis Dyslipidemia, goal LDL below 70 Other and unspecified hyperlipidemia documented in this encounter Advance Directives * [...] Agents on File Name Relationship Healthcare Agent [facility] Communication Constance Dietrich Adult Child First Alternate Health Care Agent (per Health Care Power of Leasing Professional document) Elisabeth Erickson Adult Child First Alternate Health Care Agent (per Health Care Power of Leasing Professional document) Care Teams Drawer In Plain Loom Relationship Specialty Start Date End Date Donn Clarke MD 200 [place] [address] PCP - General Internal Medicine 12/17/15 documented as of this encounter
--- OUTSIDE RECORDS SUMMARY | 2024-03-31 12:05 | External Medical Summary | Summary of Care ---
Author Name Unknown Organization [facility] Address [address] [place] [address] Phone [phone] Care Team Providers Care Ap Operator Name Role Phone Donn Clarke MD Primary Care Provider + Encounter Details Date Type Department Care Team (Late st Contact Info) Description 03/12/2024 Population Health External Data Unspecified Department Allergies Active Allergy Reactions Criticality Noted Date Comments Lorazepam Low 07/27/2019 Codeine Nausea/vomiting Low 10/31/2018 Pollen Wheezing,Cough Low 11/30/2016 documented as of this encounter (statuses as of 03/12/2024) Medications Medication Sig Dispensed Refills Start Date End Date Status ACETAMINOPHEN 500 MG PO TABS Take 1 Tablet by mouth every 4 hours as needed for Pain. Do not take more then 3000 mg in a 24 hr period. Active Probiotic Capsule Take 1 Cap by mouth daily. 11/02/2018 Active aspirin enteric coated 81 MG TBECIndications:Coron myra atherosclerosis of [place] coronary artery Take 2 Tabs by mouth [...] MORNING 90 Tablet 3 03/24/2023 4 Active Atorvastatin Calcium 80 MG Oral Tablet (Lipitor)Indications: Dyslipidemia, goal LDL below 70 TAKE ONE TABLET BY MOUTH EVERY DAY 90 Tablet 3 05/24/2023 4 Active Triamcinolone Acetonide 55 MCG/ACT Nasal Aerosol (Nasacort Allergy 24HR) Administer 1 [place] into each nostril daily as needed. Active Famotidine 20 MG Oral Tablet (Pepcid)Indications:G astroesophageal reflux disease TAKE ONE TABLET BY MOUTH TWICE A DAY 180 Tablet 3 06/21/2023 4 Active Losartan Potassium 100 MG Oral Tablet (Cozaar)Indications:H TN, goal below 140/90 TAKE ONE TABLET BY MOUTH EVERY DAY 100 Tablet 3 07/06/2023 4 Active Ipratropium [place] 0.06 % Nasal Solution (Atrovent) Administer 1 [place] into each nostril at bedtime. 45 mL [...] other meds) 90 Tablet 1 10/13/2023 Active Cetirizine HCl 10 MG Oral Tablet (ZyrTEC Allergy) Take 1 Tablet by mouth in the morning and 1 Tablet before bedtime. Active Trelegy Ellipta 200-62.5-25 MCG/ACT Aerosol Powder Breath Activated Inhale 1 Puff by mouth daily. Active Spironolactone 25 MG Oral Tablet (Aldactone)Indication s:HTN, goal below 140/90,Heart failure, diastolic, with acute decompensation (HCC),SOB (shortness of breath),Peripheral edema Take 1 Tablet by mouth in the morning. 100 Tablet 3 11/17/2023 Active Furosemide 20 MG Oral Tablet (Lasix)Indications:HT N, goal below 140/90,Heart failure, diastolic, with acute [...] 7 % Inhalation Nebulization Solution (Hyper-Kendell) 11/28/2023 Active Benzonatate 100 MG Oral Capsule (Tessalon Perles) Take 1 Capsule by mouth 3 times a day as needed for Cough for up to 50 doses. 50 Capsule 12/01/2023 Active Ipratropium-Albuterol 0.5-2.5 (3) MG/3ML Inhalation Solution (Duoneb)Indications:D OE (dyspnea on exertion),Acute cough INHALE THE CONTENTS OF ONE VIAL VIA NEBULIZER EVERY 4 HOURS NEEDED FOR SHORTNESS OF BREATH AND OR WHEEZING 1620 mL 12/30/2023 Active Dextran 70-Hypromellose 0.1-0.3 % Ophthalmic Solution Use as Directed 11/24/2023 Active Dupilumab 300 MG/2ML Subcutaneous Solution Pen-injector (Textádo) Inject 2 mL under the skin every [...] Extended Release (Isoptin SR)Indications:[place] ry atherosclerosis of [place] coronary artery,PAF (paroxysmal atrial fibrillation) ([facility]),HTN, goal below 140/90,Beta-blockers contraindicated,S/P CABG x 2,S/P drug eluting coronary stent placement TAKE ONE TABLET BY MOUTH EVERY MORNING 90 Tablet 3 03/01/2024 Active Hospital, Clinic, or Other Facility Administered Medication Ordered Dose Route Frequency Start Date End Date Status methacholine (0 mg/mL) [place] (Provocholine) inhalation solution 3 mLIndications:Shortness of breath 3 mL IN ONCE PRN 07/14/2022 Active documented as of this encounter (statuses as of 03/12/2024) Active Problems Problem Noted Date Diagnosed Date [...] single drug-eluting stent (3.0 x 15 mm [place]). 3. 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 tract symp toms 08/03/2002 Chronic rhinitis 08/03/2002 documented as of this encounter (statuses as of 03/12/2024) Resolved Problems Problem Noted Date Diagnosed Date [...] recommend f/u 3 years [employer] Other*[id number] 06/05/2007 08/24/2016 Overview: Study Title: Genomic Markers for Patients with Cardiovascular Disease Project # [id number] Pick Up Operator: Aretha Rodríguez MD [phone] Coronary atherosclerosis of [place] coronary artery 05/16/2007 07/27/2019 ADVANCE DIRECTIVE INFORMATION [...] as of this encounter (statuses as of 03/12/2024) Immunizations Name Administration Dates Next Due COVID-19 mRNA, LNP-s, No Pre serve, 2-Dose Series (Affinaquest) 10/21/2021,04/20/2021,09/23/2020,08/25 COVID-19, LNP-s, No Preserve , Justyn-sucrose, Ages 12+ (Affinaquest) 10/21/2021 COVID-19, MRNA-LNP, 23-24, P F, 30 MCG/0.3 mL, 12 YRS AND ABOVE, IM (PFIZER-Comirnaty) 04/12/2023 Covid-19, Mrna, Lnp-s, Pf, B ivalent, 30 Mcg, IM, 12 yrs and above (Pfizer) 04/07/2022 Pneumococcal Conjugate Vacc, 13 Valent (Prevnar) 10/17/2014 Pneumococcal Conjugate Vacci ne, 20-valent ([id number]) 06/08/2022 Pneumococcal Polysaccharide PPV23 (Pneumovax) 07/30/2011 RSV [...] 03/26/2024 10:30 AM EDT Nurse Only Ancillary [facility] 132 [facility] [place] [address] David, Nurse Annual Wellness [facility] 132 [facility] [place] [address] 03/28/2024 1:45 PM EDT Office Visit MOHS Surgery [facility] 200 [facility], [place] [address] Ama Galvez MD 200 [facility] [place] [address] 05/28/2024 9:15 AM EST Imaging Radiology [facility] 1[facility] 132 [facility] [place] [address] 06/05/2024 1:40 PM EST Office Visit Pulmonary Medicine, [facility] [address] Sundeep López MD [address] [facility] [address] 07/27/2024 11:15 AM EST Office Visit Dermatology [facility] 200 [facility] [place] [address] Donn Ornelas MD 200 [facility] [place] [address] 09/03/2024 9:30 AM EST Office Visit Cardiology, [facility] 132 [facility] [place] [address] Jonnathan Song PA-C 132 [facility] [place] [address] 10/25/2024 2:00 PM EDT Office Visit General Internal Medicine [facility] 200 [facility] [place] [address] Donn Clarke MD 200 [facility] [place] [address] 02/18/2025 2:00 PM EDT Office Visit Hematology/Oncology [facility] [place] 200 [facility] [place] [phone] Smita Miller MD 200 [facility] [place] [address] Scheduled Procedures Name Priority Associated Diagnoses Date/Ti [...] 08/11/2025 08/11/2020, 07/19, 11/03/2016, Additional history exists DTaP,Tdap,and Td Vaccines (3 - Td or Tdap) 02/23/2034 [...] this encounter Medical Devices Implanted Type Area Computing Tutor Device Identifier Shelf Expiration Date Model / Serial / Lot Jenna Smart .6x4.25 [id number] - [id number] Implanted:Qty : 1 on 06/26/2013 at [place] [facility] [place] Left: Ear GYRUS : ENT 05/17/2022 [id number] / / [id number] Suture Steel 6 B&S19 M654g - [id number] Implanted:Qty : 4 on 07/14/2019 by Genesis Rea MD at [place] [facility] [place] N/A: Sternum JNJ : [employer] 03/17/2024 [id number] / / [id number] documented as of this encounter Advance Directives * Full Code [...] Relationship Healthcare Agent Relationshi p Communication Constance Dietrich Adult Child First Alternate Health Care Agent (per Health Care Power of Float Builder document) Elisabeth Dre Adult Child First Alternate Health Care Agent (per Health Care Power of Float Builder document) Care Teams Ap Operator Relationship Specialty Start Date End Date Donn Clarke MD 200 [facility] [place] [address] PCP - General Internal Medicine 12/17/15 documented as of this encounter
[2024-03-31 12:33] LABS: Basophils # (auto) 0.06 K/uL (0.00-0.20); Basophils % (auto) 0.7 %; Eosinophils # (auto) 0.13 K/uL (0.00-0.50); Eosinophils % (auto) 1.5 %; Hematocrit (blood only) 42.5 % (42.0-52.0); Hemoglobin 14.5 g/dl (14.0-18.0); Immature Granulocytes # (auto) 0.15 K/uL (0.01-0.20); Immature Granulocytes % (auto) 1.7 %; Lymphocytes # (auto) 1.49 K/uL (1.20-3.40); Lymphocytes % (auto) 17.2 %; Mean Corpuscular Hemoglobin 30.5 pg (25.0-34.0); Mean Corpuscular Hgb Conc 34.1 g/dL (32.0-36.0); Mean Corpuscular Volume 89.5 fL (80.0-100.0); Mean Platelet Volume 10.3 fL (9.4-12.4); Monocytes # (auto) 0.83 K/uL (0.11-0.59); Monocytes % (auto) 9.6 %; Neutrophils # (auto) 6.01 K/uL (1.40-6.50); Neutrophils % (auto) 69.3 %; Platelet Count 187 K/uL (130-400); RDW Coefficient of Variation 14.8 % (11.5-14.5); RDW Standard Deviation 48.7 fL (36.4-46.3); Red Blood Count 4.75 M/uL (4.70-6.10); White Blood Count 8.67 K/ul (4.8-10.8)
--- NOTE | 2024-03-31 12:33 | Emergency Department Note ---
Impression & Plan Chest pain, Exertional dyspnea, CAD (coronary artery disease) ED Provider Note NAME: LAURA FRAGA AGE: 83 SEX: M : 1940 ARRIVES VIA: Walk-In INFORMANT: Patient ED PROVIDER(S): Bhupinder Bangura DO CHIEF COMPLAINT: chest pain HPI: Patient is an 83-year-old male with a past medical history of a bypass and LAD occlusion who presents to the ER for exertional shortness of breath and chest pain. He admits that this has been going on for the past several weeks. He has not been getting pain at rest until the past several days. Pain has been present at rest for the past several days and then gets significantly worse with any movement. He denies any arm or jaw pain. This feels exactly like 5 years ago when he had his CABG. Denies any dysuria, urgency, or frequency. No other exacerbating or remitting factors. ADDITIONAL HISTORY OBTAINED: Per HPI Chronic Medical/Social Conditions Affecting Care: Per HPI PAST MEDICAL HISTORY:See Below PAST SURGICAL HISTORY:See Below FAMILY HISTORY:See Below SOCIAL HISTORY:See Below HOME MEDICATIONS:See Below ALLERGIES:See Below VITALS:See Below PHYSICAL EXAMINATION: GENERAL: Sitting up in bed, alert, well appearing, well nourished, no distress, non-toxic EYE EXAM: normal conjunctiva. OROPHARYNX: mucous membranes are moist LUNGS: Clear to auscultation. Normal chest wall mechanics HEART: no murmurs, S1 normal and S2 normal ABDOMEN: abdomen soft, non-tender, normo-active bowel sounds, no masses, no rebound or guarding. BACK: Back is symmetrical on inspection and there is no deformity, no midline tenderness, no CVA tenderness. SKIN: no rashes and no bruising UPPER EXTREMITIES: upper extremities are grossly normal. LOWER EXTREMITIES: No pitting edema. NEURO EXAM: Normal sensorium, cranial nerves II-XII grossly intact, normal speech, no gross weakness of arms, no gross weakness of legs. MEDICAL DECISION MAKING: Patient is an 83-year-old male who presents ER for above-stated complaint. IV was established and blood work was obtained. Labs showed no significant leukocytosis or anemia. INR unremarkable. BMP with slightly elevated chloride at 108. LFTs bilirubin was unremarkable. Initial troponin is negative with symptoms that have been constant for over 8 hours not indicative of ACS but he does have exertional symptoms that wax and wane. With his extensive history of CAD and a CABG I discussed the case with the hospitalist for further evaluation management treatment. He was given aspirin as well as nitro without any improvement with the nitro. The constant pain that has been present for the past 3 days was present upon admission but he had no exertional symptoms/severe symptoms which worsen with movement upon admission. Will hold on nitro at this time with negative troponin symptoms have been present for greater than 8 hours. Consults/Care Managements Discussions: Per MDM Triage Nursing notes reviewed. Limited review of prior medical records performed Vital Signs: reviewed and remarkable for no significant abnormalities Differential diagnosis: Cardiac ischemia, aortic dissection, pulmonary embolism, pneumothorax, pneumonia, pericarditis, myocarditis, esophageal rupture, GERD, cholecystitis, pancreatitis, musculoskeletal, as well as other pathologies. ER treatment provided: See below Diagnostics interpreted by me include EKG and cardiac monitoring as listed below: -Cardiac Monitoring: An order was placed for continuous cardiac monitoring. The monitor shows a rate of 80 with sinus rhythm. -ECG: Sinus rhythm rate 82 Normal axis No PVCs QTc 422 -Laboratory studies:Interpreted by me as stated above in MDM and shown below. Imaging studies: Xrays: As interpreted by me: Portable AP upright 1 view of the chest shows no focal infiltrate CTs show: none Procedures:none Critical Care: None Past Med/Surg History Problem List (Updated 03/31/24 @ 18:11 by Bhupinder Bangura DO) CAD (coronary artery disease) (Acute) Chest pain (Acute) Dyspnea on minimal exertion Post-COVID chronic cough Multifocal pneumonia Bronchiectasis Cryptogenic organizing pneumonia Paroxysmal atrial fibrillation Dyspnea Leukocytosis (Acute) Exertional dyspnea (Acute) Pneumonia (Acute) Precordial chest pain (Acute) Bronchiectasis with (acute) exacerbation COPD exacerbation (Acute) Hypoxia (Acute) Pneumonia (Acute) Mild persistent asthma Abnormal CT scan, chest GERD (gastroesophageal reflux disease) Retrosternal chest pain (Acute) Hyperbilirubinemia Depression CAD (coronary artery disease) CABG (2019) + stents (MARY to prox Lcx, MARY x2 to mid LAD- 2019) DVT prophylaxis Cholelithiasis Angina pectoris, unstable (Acute) Chest pain Hypertensive urgency Acute cholecystitis Umbilical hernia Diffuse abdominal pain (Acute) Acute cholecystitis (Acute) Vomiting (Acute) Tachycardia (Acute) Fever (Acute) Encounter for pre-operative examination Preoperative cardiovascular examination Troponin I above reference range Elevated liver function tests Encounter for pre-operative examination Cholangitis Elevated troponin Encounter for pre-operative examination HTN (hypertension) DVT prophylaxis Status post double vessel coronary artery bypass CABG (2019) History of cystoscopy (Chronic) History of colonoscopy with polypectomy (Chronic) History of malignant melanoma of skin (Chronic) Back, eyelid History of basal cell carcinoma (BCC) excision (Chronic) History of hernia repair (Chronic) History of eye surgery (Chronic) Hypothyroidism (Chronic) BPH (benign prostatic hyperplasia) (Chronic) Coronary atherosclerosis of [place] coronary artery (Chronic) CABG (2018) + stents (MARY to prox Lcx, MARY x2 to mid LAD- 2018) Asthma (Chronic) COPD (chronic obstructive pulmonary disease) (Chronic) Medical History (Updated 03/31/24 @ 18:11 by Bhupinder Bangura DO) History of Graves' disease History of pulmonary embolism 2010, AC since discontinued Abdominal pain Ileus Post-ERCP acute pancreatitis Acute pancreatitis High serum chloride Leukocytosis Afib post-op CABG, no known recurrences per pt Hypokalemia Clostridium difficile carrier Hypertension Surgical History (Updated 03/08/24 @ 20:00 by Kaia Martinez PA-C) History of vasectomy History of thyroidectomy, total H/O rotator cuff surgery History of appendectomy History of cardiac cath CABG (2018) + stents (MARY to prox Lcx, MARY x2 to mid LAD- 2018) History of cholecystectomy Lap cholecystectomy, open repair of umbilical hernia (12/09/2020): Grade 2 view, MAC #3, ETT 7.5 at [facility] Family History Father Cancer Prostate and bladder Mother Stroke Breast cancer Social History Smoking Status: Former smoker Tobacco Type: Cigarettes Age Quit Using Tobacco: 27; Second Hand Exposure: No; Do You Dip or Chew Tobacco: No; Hx Alcohol Use: Yes Alcohol type: wine and hard liquor Alcohol Intake Frequency Comment: 1-2 drinks per day Hx Substance Use: No Preferred Language: [place] Communication Ability: Effective [employer] Required: No Beliefs That Will Affect Care: Adventism Adventism Beliefs: Druze marital status: Current Living Situation: Spouse current occupational status: retired current occupation: Retired Feels Safe at Home: Yes Assistive Devices: Nebulizer and Walker Allergies Allergies Allergy/AdvReac Type Severity Reaction Status Date / Time Beta-Blockers AdvReac Mild History Verified 03/08/24 18:40 (Beta-Adrenergic Bloc intolerance as per records codeine AdvReac Mild N/V Verified 03/08/24 18:40 Home Meds Home Medications Medication Instructions Recorded Confirmed sertraline 50 mg tablet (Zoloft) 50 mg PO QAM 10/31/18 03/31/24 tamsulosin 0.4 mg capsule (Flomax) 0.4 mg PO HS 10/31/18 03/31/24 albuterol sulfate 90 mcg/actuation 2 puff inhalation Q6H PRN 07/12/19 03/31/24 aerosol inhaler Shortness Of Breath atorvastatin 80 mg tablet 80 mg PO Q OTHER DAY 12/06/20 03/31/24 cholecalciferol (vitamin D3) 25 25 mcg PO 3XWK 12/06/20 03/31/24 mcg (1,000 unit) tablet (Vitamin D3) famotidine 20 mg tablet (Pepcid) 20 mg PO BID 12/06/20 03/31/24 losartan 100 mg tablet 100 mg PO QAM 12/06/20 03/31/24 aspirin 81 mg tablet,delayed 81 mg PO QPM 01/13/21 03/31/24 release Lactobacillus acidophilus 10 10,000 mmu cells PO DAILY 05/26/22 03/31/24 billion cell capsule (Probiotic) ezetimibe 10 mg tablet 10 mg PO QAM 05/26/22 03/31/24 ipratropium 0.5 mg-albuterol 3 mg 3 ml inhalation Q12H Shortness Of 05/26/22 03/31/24 (2.5 mg base)/3 mL nebulization Breath Or Wheezing soln montelukast 10 mg tablet 10 mg PO HS 05/26/22 03/31/24 spironolactone 25 mg tablet 25 mg PO QAM 05/26/22 03/31/24 acetaminophen 500 mg tablet 500 mg PO Q4H PRN Pain 11/24/23 03/31/24 dextran 70-hypromellose 1 applic OPB UD PRN Eye Irritation 11/24/23 03/31/24 fluorouracil 0.5 % topical cream 1 applic topical HS 11/24/23 03/31/24 furosemide 20 mg tablet 20 mg PO 3XWK 11/24/23 03/31/24 ipratropium bromide 42 mcg (0.06 1 spray intranasal HS 11/24/23 03/31/24 %) nasal spray levothyroxine 125 mcg tablet 125 mcg PO DAILYBB 11/24/23 03/31/24 prednisolone acetate 1 % eye See Rx Instructions .Route .COMPLEX 11/24/23 03/31/24 drops,suspension psyllium 1 tbsp PO DAILY 11/24/23 03/31/24 triamcinolone acetonide 55 mcg 1 spray intranasal DAILY Congestion 11/24/23 03/31/24 nasal spray aerosol (Nasacort Allergy) budesonide 0.5 mg/2 mL suspension 0.5 mg inhalation Q12H 11/25/23 03/31/24 for nebulization fluticasone fur. 200 mcg-umeclid 1 inh inhalation DAILY 11/25/23 03/31/24 62.5 mcg-vilant 25 mcg inhalat.powder (Trelegy Ellipta) verapamil 120 mg tablet,extended 120 mg PO QAM 11/25/23 03/31/24 release dupilumab 300 mg/2 mL subcutaneous 300 mg subcut UD 03/08/24 03/31/24 pen injector (Dupixent) loratadine 10 mg tablet (Claritin) 10 mg PO DAILY 03/08/24 03/31/24 prednisone 5 mg tablet 5 mg PO DAILY 03/08/24 03/31/24 azithromycin 500 mg tablet 500 mg PO DIRECTED 03/31/24 03/31/24 Previous Rx's Medication Instructions Recorded benzonatate 100 mg capsule 200 mg (2 x 100 mg) PO TID #90 caps 03/10/24 guaifenesin 600 mg tablet, 1,200 mg (2 x 600 mg) PO BID 30 03/10/24 extended release 12 hr (Mucinex) days #120 tabs hydrocodone-homatropine 5 mg-1.5 5 ml PO Q6H PRN severe cough #120 03/10/24 mg/5 mL oral syrup (Hydromet) mL sodium chloride 7 % for 4 ml NEB BIDR 30 days #240 mL 03/10/24 nebulization Results & Data (ED) Vital Signs Vital Signs - 24 hr 03/31/24 11:57 03/31/24 12:20 03/31/24 12:31 Temperature 36.5 C Temperature Source Temporal Artery Scan Pulse Rate 83 83 Pulse Rate from SpO2 Sensor Respiratory Rate 16 16 Respiratory Effort / Characteristics Non-Labored Spontaneous Respiratory Depth Normal Blood Pressure 116/67 116/59 L Blood Pressure Mean 83 77 Pulse Oximetry 98 98 Oxygen Delivery Method Room Air Room Air Sepsis Recent Fever Within 48 Hours No Sepsis New/Unexplained Change in Mental Status No Sepsis Action Taken by Nursing No Action Required 03/31/24 12:32 03/31/24 12:39 03/31/24 12:57 Temperature Temperature Source Pulse Rate 73 63 61 Pulse Rate from SpO2 Sensor 63 61 Respiratory Rate 20 20 Respiratory Effort / Characteristics Respiratory Depth Blood Pressure 121/65 Blood Pressure Mean 83 Pulse Oximetry 95 94 Oxygen Delivery Method Sepsis Recent Fever Within 48 Hours Sepsis New/Unexplained Change in Mental Status Sepsis Action Taken by Nursing 03/31/24 13:30 03/31/24 14:00 03/31/24 14:18 Temperature Temperature Source Pulse Rate 58 L 57 L 52 L Pulse Rate from SpO2 Sensor 59 L 58 L 52 L Respiratory Rate 18 12 20 Respiratory Effort / Characteristics Respiratory Depth Blood Pressure 115/56 L 114/63 Blood Pressure Mean 75 80 Pulse Oximetry 92 96 99 Oxygen Delivery Method Sepsis Recent Fever Within 48 Hours Sepsis New/Unexplained Change in Mental Status Sepsis Action Taken by Nursing Laboratory Data 03/31/24 12:10 03/31/24 12:10 Lab Results 03/31/24 Range/Units 12:10 WBC 8.67 (4.8-10.8) K/ul RBC 4.75 (4.70-6.10) M/uL Hgb 14.5 (14.0-18.0) g/dl Hct 42.5 (42.0-52.0) % MCV 89.5 (80.0-100.0) fL MCH 30.5 (25.0-34.0) pg MCHC 34.1 (32.0-36.0) g/dL RDW Std Deviation 48.7 H (36.4-46.3) fL RDW Coeff of Valentino 14.8 H (11.5-14.5) % Plt Count 187 (130-400) K/uL MPV 10.3 (9.4-12.4) fL Immature Gran % (Auto) 1.7 % Neut % (Auto) 69.3 % Lymph % (Auto) 17.2 % [place] % (Auto) 9.6 % Eos % (Auto) 1.5 % Baso % (Auto) 0.7 % Neut # (Auto) 6.01 (1.40-6.50) K/uL Lymph # (Auto) 1.49 (1.20-3.40) K/uL [place] # (Auto) 0.83 H (0.11-0.59) K/uL Eos # (Auto) 0.13 (0.00-0.50) K/uL Baso # (Auto) 0.06 (0.00-0.20) K/uL Immature Gran # (Auto) 0.15 (0.01-0.20) K/uL PT 10.9 (9.0-12.0) Seconds INR 1.0 (0.9-1.1) APTT 27 (21-31) Seconds PTT Ratio 1.0 Sodium 139 (136-145) mmol/L Potassium 4.2 (3.5-5.1) mmol/L Chloride 108 H (98-107) mmol/L Carbon Dioxide 22 (21-32) mmol/L Anion Gap 9 (3-11) BUN 25 H (6-23) mg/dl Creatinine 1.21 (0.6-1.4) mg/dl Est Cr Clr Drug Dosing 51.9 ml/min Est GFR ( Amer) 64.7 ml/min Est GFR (Non-Af Amer) 55.8 ml/min BUN/Creatinine Ratio 20.7 H (10-20) Glucose 87 (70-99(Fasting)) mg/dl Calcium 9.7 (8.6-10.3) mg/dl Total Bilirubin 0.8 (0.2-1.0) mg/dl AST 16 (13-39) U/L ALT 14 (7-52) U/L Alkaline Phosphatase 64 (34-104) U/L Troponin I High Sens 8.6 (0-20) pg/ml Total Protein 6.9 (6.0-8.3) gm/dl Albumin 4.3 (3.4-5.0) gm/dl Globulin 2.6 (2.5-4.0) gm/dl Albumin/Globulin Ratio 1.7 (0.9-2) Lipase 36 (11-82) U/L Administered Medications Heparin Sodium/Dextrose (Heparin Sodium/Dextrose) 25,000 units in 500 mls @ 28 mls/hr IV .[id number] [facility]; Protocol Stop: 04/30/24 15:44 Last Admin: 03/31/24 16:35 Dose: 1,400 units/hr, 28 mls/hr Documented By: LARON Co-signed By: GGG Discontinued Medications Aspirin (Aspirin Chew 324 Mg) 243 mg PO NOW STA Stop: 03/31/24 12:31 Last Admin: 03/31/24 13:08 Dose: 324 mg Documented By: MARKUS Sodium Chloride (Nss) 1,000 mls @ 999 mls/hr IV .Q1H1M ONE Stop: 03/31/24 13:31 Last Infusion: 03/31/24 15:56 Dose: Infused Documented By: Admin: 03/31/24 13:07 Dose: 999 mls/hr Documented By: MARKUS Nitroglycerin (Nitroglycerin Sl 0.4 Mg/Tab Tab) 0.4 mg SL Q5M PRN PRN Reason: Chest Pain Stop: 04/30/24 12:29 Last Admin: 03/31/24 13:25 Dose: 0.4 mg Documented By: Admin: 03/31/24 13:10 Dose: 0.4 mg Documented By: MARKUS Imaging Data Radiologist's Impression: Chest X-Ray 03/31/24 12:20 XR chest 1V portable CLINICAL HISTORY: Chest pain, nonspecific TECHNIQUE: Single frontal radiograph of the chest was obtained. Comparison: Comparison is made to chest radiograph 03/08/2024 FINDINGS: Median sternotomy wires are unchanged. Calcified aortic knob is seen. The lungs are clear. No evidence of pleural effusion or pneumothorax. IMPRESSION: No acute chest disease. ACT 112: Negative or not required by law. Electronically signed by: Suraj Shane M.D. 03/31/2024 12:56 PM Discharge Plan Visit Data Chief Complaint: Chest Pain ED Provider: Bhupinder Bangura Discharge Problem: Chest pain, Exertional dyspnea, CAD (coronary artery disease) Discharge Instructions Interventions: ED Discharge Assessment Last Done: 03/31/24 16:47 Discharge Problem: Chest pain Qualifiers: Chest pain type: unspecified Qualified Code(s): R07.9 - Chest pain, unspecified CAD (coronary artery disease) Qualifiers: Coronary Disease-Associated Artery/Lesion type: unspecified vessel or lesion type [place] vs. transplanted heart: unspecified whether [place] or transplanted heart Associated angina: unspecified whether angina present Qualified Code(s): I 25.10 - Atherosclerotic heart disease of [place] coronary artery without angina pectoris
[2024-03-31 12:52] LABS: Albumin Globulin Ratio 1.7 (0.9-2); Albumin Level 4.3 gm/dl (3.4-5.0); BUN Creatinine Ratio 20.7 (10-20); Bilirubin,Total 0.8 mg/dl (0.2-1.0); Calcium 9.7 mg/dl (8.6-10.3); Creatinine Clr Calc Pharmacy 51.9 ml/min; Est GFR (African American) 64.7 ml/min; Est GFR (Non-African American) 55.8 ml/min; Globulin 2.6 gm/dl (2.5-4.0); Potassium 4.2 mmol/L (3.5-5.1); Total Protein 6.9 gm/dl (6.0-8.3)
[2024-03-31 12:57] LABS: Troponin I High Sensitivity 8.6 pg/ml (0-20)
--- NOTE | 2024-03-31 12:58 | XRay Report ---
XR chest 1V portable CLINICAL HISTORY: Chest pain, nonspecific TECHNIQUE: Single frontal radiograph of the chest was obtained. Comparison: Comparison is made to chest radiograph 03/08/2024 FINDINGS: Median sternotomy wires are unchanged. Calcified aortic knob is seen. The lungs are clear. No evidenc e of pleural effusion or pneumothorax. IMPRESSION: No acute chest disease. ACT 112: Negative or not required by law. Electronically signed by: Suraj Shane M.D. 03/31/2024 12:56 PM
[2024-03-31] MEDS: SODIUM CHLORIDE 0.9% 1,000 ML IV ONE (13:07)
[2024-03-31] MEDS: ASPIRIN CHEW 324 MG PO STA (13:08)
[2024-03-31] MEDS: NITROGLYCERIN SL 0.4 MG/TAB TAB SL PRN (13:10)
--- NOTE | 2024-03-31 14:36 | History & Physical Report ---
Date of Service March 31, 2024 Assessment & Plan (1) Chest pain: (2) Dyspnea on minimal exertion: (3) Hx of coronary artery bypass graft: Plan: 83-year-old male with history of CAD/CABG, paroxysmal atrial fibrillation on aspirin, hypertension, bronchiectasis, asthma, history of PE, presenting with episodes of chest pain with exertional dyspnea times few days. Chest pain, dyspnea on minimal exertion CAD status post CABG Rule out ACS versus unstable angina Initial troponin negative EKG nonspecific T wave changes in the inferior leads Obtain 2 more sets of troponins EKG in the morning Echocardiogram Nitropaste every 6 hours Continue usual aspirin, simvastatin, ezetimibe, losartan Cardiology consult for possible cardiac cath N.p.o. postmidnight Grade 1 diastolic dysfunction No signs of overt volume overload Continue Lasix 3 times a week, spironolactone Bronchiectasis, asthma admitted 3 weeks ago for pneumonia, COVID States cough is better Clear breath sounds Chest x-ray clear Patient feels current symptoms are more reminiscent of his previous symptoms prior to CABG than a bronchiectasis flare Continue usual Trelegy, montelukast History of pulmonary embolism Check D-dimer If positive, will require CT angiogram to rule out acute PE in light of presenting symptoms Paroxysmal atrial fibrillation Currently in sinus rhythm On verapamil and aspirin 81 mg daily Hypertension Blood pressure stable Continue losartan Other chronic medical issues: BPH Hypothyroidism GERD MGUS History of prostate cancer - Continue usual meds DVT prophylaxis Heparin subcu CODE STATUS Full code Disposition Lives at home with family History of Present Illness Chief Complaint: Episodes of chest pain and shortness of breath times few days Primary Care Provider: Donn Clarke MD 83-year-old male with history of CAD/CABG, paroxysmal atrial fibrillation on aspirin, hypertension, bronchiectasis, asthma, history of PE, presenting with episodes of chest pain with exertional dyspnea times few days. Patient was recently admitted to [facility] the last week of February for pneumonia which was treated with a course of antibiotics and steroids. He is also following up with the [facility] cardiology clinic for symptoms of chest pain and shortness of breath. He is scheduled to have a stress test this coming week. Since discharge, the patient states that his cough has significantly improved. However he still is having episodes of chest pain and dyspnea with minimal exertion. Symptoms have been more frequent and has been worsening over the past week. Yesterday, patient walked a few steps from a chair to the dining table and immediately developed chest pain with shortness of breath and felt that he was going to pass out. Similar symptoms occurred when patient walked from the porch to the driveway. At the ER, patient was received with stable vital signs, saturating more than 90% on room air. Troponin x 1 is negative, EKG showing nonspecific T wave inversions in the inferior leads. He was given nitro tablets at the ER with left much relief of symptoms. Allergies Allergy/AdvReac Type Severity Reaction Status Date / Time Beta-Blockers AdvReac Mild History Verified 03/08/24 18:40 (Beta-Adrenergic Bloc intolerance as per records codeine AdvReac Mild N/V Verified 03/08/24 18:40 Home Medications Medication Instructions Recorded Confirmed Type sertraline 50 mg tablet (Zoloft) 50 mg PO QAM 10/31/18 03/08/24 History tamsulosin 0.4 mg capsule (Flomax) 0.4 mg PO HS 10/31/18 03/08/24 History albuterol sulfate 90 mcg/actuation 2 puff inhalation Q6H PRN 07/12/19 03/08/24 History aerosol inhaler Shortness Of Breath atorvastatin 80 mg tablet 80 mg PO Q OTHER DAY 12/06/20 03/08/24 History cholecalciferol (vitamin D3) 25 25 mcg PO 3XWK 12/06/20 03/08/24 History mcg (1,000 unit) tablet (Vitamin D3) famotidine 20 mg tablet (Pepcid) 20 mg PO BID 12/06/20 03/08/24 History losartan 100 mg tablet 100 mg PO QAM 12/06/20 03/08/24 History aspirin 81 mg tablet,delayed 81 mg PO QPM 01/13/21 03/08/24 History release Lactobacillus acidophilus 10 10,000 mmu cells PO DAILY 05/26/22 03/08/24 History billion cell capsule (Probiotic) ezetimibe 10 mg tablet 10 mg PO QAM 05/26/22 03/08/24 History ipratropium 0.5 mg-albuterol 3 mg 3 ml inhalation Q12H Shortness Of 05/26/22 03/08/24 History (2.5 mg base)/3 mL nebulization Breath Or Wheezing soln montelukast 10 mg tablet 10 mg PO HS 05/26/22 03/08/24 History spironolactone 25 mg tablet 25 mg PO QAM 05/26/22 03/08/24 History acetaminophen 500 mg tablet 500 mg PO Q4H PRN Pain 11/24/23 03/08/24 History dextran 70-hypromellose 1 applic OPB UD PRN Eye Irritation 11/24/23 03/08/24 History fluorouracil 0.5 % topical cream 1 applic topical HS 11/24/23 03/08/24 History furosemide 20 mg tablet 20 mg PO 3XWK 11/24/23 03/08/24 History ipratropium bromide 42 mcg (0.06 1 spray intranasal HS 11/24/23 03/08/24 History %) nasal spray levothyroxine 125 mcg tablet 125 mcg PO DAILYBB 11/24/23 03/08/24 History prednisolone acetate 1 % eye See Rx Instructions .Route .COMPLEX 11/24/23 03/08/24 History drops,suspension psyllium 1 tbsp PO DAILY 11/24/23 03/08/24 History triamcinolone acetonide 55 mcg 1 spray intranasal DAILY Congestion 11/24/23 03/08/24 History nasal spray aerosol (Nasacort Allergy) budesonide 0.5 mg/2 mL suspension 0.5 mg inhalation Q12H 11/25/23 03/08/24 History for nebulization fluticasone fur. 200 mcg-umeclid 1 inh inhalation DAILY 11/25/23 03/08/24 History 62.5 mcg-vilant 25 mcg inhalat.powder (Trelegy Ellipta) verapamil 120 mg tablet,extended 120 mg PO QAM 11/25/23 03/08/24 History release dupilumab 300 mg/2 mL subcutaneous 300 mg subcut UD 03/08/24 03/08/24 History pen injector (Dupixent) loratadine 10 mg tablet (Claritin) 10 mg PO DAILY 03/08/24 03/08/24 History prednisone 5 mg tablet 5 mg PO DAILY 03/08/24 03/08/24 History benzonatate 100 mg capsule 200 mg (2 x 100 mg) PO TID #90 caps 03/10/24 Rx guaifenesin 600 mg tablet, 1,200 mg (2 x 600 mg) PO BID 30 03/10/24 Rx extended release 12 hr (Mucinex) days #120 tabs hydrocodone-homatropine 5 mg-1.5 5 ml PO Q6H PRN severe cough #120 03/10/24 Rx mg/5 mL oral syrup (Hydromet) mL sodium chloride 7 % for 4 ml NEB BIDR 30 days #240 mL 03/10/24 Rx nebulization azithromycin 500 mg tablet 500 mg PO DIRECTED 03/31/24 History Past Med/Surg History Problem List (Updated 03/31/24 @ 14:39 by Maxi Osborn MD) Dyspnea on minimal exertion Post-COVID chronic cough Multifocal pneumonia Bronchiectasis Cryptogenic organizing pneumonia Paroxysmal atrial fibrillation Dyspnea Leukocytosis (Acute) Exertional dyspnea (Acute) Pneumonia (Acute) Precordial chest pain (Acute) Bronchiectasis with (acute) exacerbation COPD exacerbation (Acute) Hypoxia (Acute) Pneumonia (Acute) Mild persistent asthma Abnormal CT scan, chest GERD (gastroesophageal reflux disease) Retrosternal chest pain (Acute) Hyperbilirubinemia Depression CAD (coronary artery disease) CABG (2018) + stents (MARY to prox Lcx, MARY x2 to mid LAD- 2018) DVT prophylaxis Cholelithiasis Angina pectoris, unstable (Acute) Chest pain Hypertensive urgency Acute cholecystitis Umbilical hernia Diffuse abdominal pain (Acute) Acute cholecystitis (Acute) Vomiting (Acute) Tachycardia (Acute) Fever (Acute) Encounter for pre-operative examination Preoperative cardiovascular examination Troponin I above reference range Elevated liver function tests Encounter for pre-operative examination Cholangitis Elevated troponin Encounter for pre-operative examination HTN (hypertension) DVT prophylaxis Status post double vessel coronary artery bypass CABG (2018) History of cystoscopy (Chronic) History of colonoscopy with polypectomy (Chronic) History of malignant melanoma of skin (Chronic) Back, eyelid History of basal cell carcinoma (BCC) excision (Chronic) History of hernia repair (Chronic) History of eye surgery (Chronic) Hypothyroidism (Chronic) BPH (benign prostatic hyperplasia) (Chronic) Coronary atherosclerosis of [place] coronary artery (Chronic) CABG (2018) + stents (MARY to prox Lcx, MARY x2 to mid LAD- 2018) Asthma (Chronic) COPD (chronic obstructive pulmonary disease) (Chronic) Medical History (Updated 03/31/24 @ 14:39 by Maxi Osborn MD) History of Graves' disease History of pulmonary embolism 2010, AC since discontinued Abdominal pain Ileus Post-ERCP acute pancreatitis Acute pancreatitis High serum chloride Leukocytosis Afib post-op CABG, no known recurrences per pt Hypokalemia Clostridium difficile carrier Hypertension Surgical History (Updated 03/08/24 @ 20:00 by Kaia Martinez PA-C) History of vasectomy History of thyroidectomy, total H/O rotator cuff surgery History of appendectomy History of cardiac cath CABG (2018) + stents (MARY to prox Lcx, MARY x2 to mid LAD- 2019) History of cholecystectomy Lap cholecystectomy, open repair of umbilical hernia (12/09/2020): Grade 2 view, MAC #3, ETT 7.5 at [facility] Family History Father Cancer Prostate and bladder Mother Stroke Breast cancer Social History Smoking Status: Former smoker Tobacco Type: Cigarettes Age Quit Using Tobacco: 27; Second Hand Exposure: No; Do You Dip or Chew Tobacco: No; Hx Alcohol Use: Yes Alcohol type: wine and hard liquor Alcohol Intake Frequency Comment: 1-2 drinks per day Hx Substance Use: No Preferred Language: Luxembourgish Communication Ability: Effective 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 Required: No Beliefs That Will Affect Care: Rastafari Rastafari Beliefs: Roman Catholic marital status: Current Living Situation: Spouse current occupational status: retired current occupation: Retired Feels Safe at Home: Yes Assistive Devices: Nebulizer and Walker Review of Systems Review of Systems: all noted and negative except for above Physical Exam Physical Exam: General- oriented x 3, not in distress, speaks in sentences with no effort or accessory muscle use Head- atraumatic Eyes- PERRL, EOMI, anicteric ENT- oropharynx clear Neck- supple, no JVD, no adenopathy, no thyromegaly; carotids +2/2, no bruits appreciated Lungs- clear to auscultation bilaterally, no rales/wheezes Heart- normal rate, regular rhythm; no murmur, no gallop, no rub appreciated Abdomen- normal bowel sounds, nondistended, soft, nontender, no masses or hepatosplenomegaly Extremities- no pretibial edema, no calf tenderness; peripheral pulses intact Neuro- alert, oriented x 3; CN 2-12 grossly intact; motor 5/5 payal aterally;sensation 100% on all extremities; no other gross focal neurologic deficits Skin- warm & dry Results & Data Results & Data Vital Signs (Past 12 Hours) Vital Signs Temp Pulse Resp BP Pulse Ox O2 Del Method 03/31/24 12:32 73 03/31/24 12:20 83 16 98 Room Air 03/31/24 11:57 36.5 C 83 16 116/67 98 Room Air all noted and reviewed including below Code Status & VTE Plan VTE Prophylaxis Plan VTE Prophylaxis will be ordered: Yes
[2024-03-31] MEDS ORDERED: Heparin IV Adult Wt-Based Standard *NO* INITIAL Bolus Protocol IV STA (15:17)
[2024-03-31] MEDS: HEPARIN SODIUM/DEXTROSE 25,000 UNITS/500 ML BAG IV SCH (16:35)
[2024-03-31] MEDS ORDERED: ACETAMINOPHEN 325 MG TAB PO PRN (16:46)
[2024-03-31] MEDS ORDERED: NITROGLYCERIN SL 0.4 MG/TAB TAB SL PRN (16:46)
[2024-03-31] MEDS ORDERED: ONDANSETRON INJ 2 MG/ML 2 ML VIAL IV PRN (16:46)
[2024-03-31 17:00] LABS: Partial Thromboplastin Time 27 Seconds (21-31); Prothrombin Time 10.9 Seconds (9.0-12.0)
[2024-03-31 18:26] LABS: D Dimer 510 ug/L FEU (0-500)
[2024-03-31] MEDS: NITROGLYCERIN 2% OINTMENT 30GM TUBE EXT SCH (18:37)
[2024-03-31] MEDS: FAMOTIDINE 20 MG TAB PO SCH (21:04)
[2024-03-31] MEDS: ASPIRIN 81 MG ECTAB PO SCH (21:04)
[2024-03-31] MEDS: MONTELUKAST SODIUM 10 MG TABLET PO SCH (21:04)
[2024-03-31] MEDS: TAMSULOSIN HCL 0.4 MG CAP PO SCH (21:04)
[2024-04-01 00:12] LABS: ANTI-Xa, UFH(UnfractionatedHep 0.53 IU/ml (0.3-0.7)
[2024-04-01] MEDS ORDERED: diphenhydrAMINE Capsule 25 MG CAP PO ONE (00:48)
[2024-04-01] MEDS: LORazepam 0.5 MG TAB PO STA (01:11)
[2024-04-01] MEDS: LEVOTHYROXINE SODIUM 125 MCG TABLET PO SCH (05:44)
[2024-04-01 05:46] LABS: Basophils # (auto) 0.05 K/uL (0.00-0.20); Basophils % (auto) 0.7 %; Eosinophils # (auto) 0.17 K/uL (0.00-0.50); Eosinophils % (auto) 2.3 %; Hematocrit (blood only) 38.2 % (42.0-52.0); Hemoglobin 12.9 g/dl (14.0-18.0); Immature Granulocytes % (auto) 1.3 %; Lymphocytes # (auto) 1.65 K/uL (1.20-3.40); Lymphocytes % (auto) 22.1 %; Mean Corpuscular Hemoglobin 30.3 pg (25.0-34.0); Mean Corpuscular Hgb Conc 33.8 g/dL (32.0-36.0); Mean Corpuscular Volume 89.7 fL (80.0-100.0); Mean Platelet Volume 10.4 fL (9.4-12.4); Monocytes # (auto) 0.69 K/uL (0.11-0.59); Monocytes % (auto) 9.2 %; Neutrophils # (auto) 4.81 K/uL (1.40-6.50); Neutrophils % (auto) 64.4 %; Platelet Count 149 K/uL (130-400); RDW Coefficient of Variation 14.8 % (11.5-14.5); RDW Standard Deviation 47.9 fL (36.4-46.3); Red Blood Count 4.26 M/uL (4.70-6.10); White Blood Count 7.47 K/ul (4.8-10.8)
[2024-04-01 05:58] LABS: BUN Creatinine Ratio 18.4 (10-20); Calcium 8.6 mg/dl (8.6-10.3); Creatinine Clr Calc Pharmacy 61.4 ml/min; Est GFR (African American) 78.6 ml/min; Est GFR (Non-African American) 67.8 ml/min; Potassium 3.8 mmol/L (3.5-5.1)
[2024-04-01 06:03] LABS: ANTI-Xa, UFH(UnfractionatedHep 0.68 IU/ml (0.3-0.7)
[2024-04-01] MEDS: OPTIRAY 320 125ml IV ONE (08:12)
--- NOTE | 2024-04-01 08:38 | CT Scan Report ---
CT angio chest PE protocol CLINICAL HISTORY: PE TECHNIQUE: Multidetector row helical CT of the chest was performed with angiographic protocol. [place] l and sagittal reformations were obtained. Coronal and sagittal MIPS were obtained from the axial kwadwo a set and were submitted for review. Automated dose lowering techniques and/or adjustment according to patient size were utilized for this exam. CT DOSE: 778.93 mGy.cm Comparison: Comparison is made to CT chest 03/08/2024 FINDINGS: Lungs and pleura: Atelectasis versus scarring is seen in the dependent portions of the lungs. Bronchi al wall thickening and mucous plugging are seen. Heart and pericardium: Heart size is normal. No pericardial effusion. Vessels: No evidence of pulmonary embolism. Severe atherosclerosis is seen. Mediastinum and nohemi: Subcentimeter lymph nodes are seen. Chest wall and lower neck: Unremarkable. Abdomen: Patient is status post cholecystectomy. Bones: Degenerative changes in the thoracic spine. IMPRESSION: 1. No acute abnormality and in particular no evidence of pulmonary embolus. 2. Bronchial wall thickening and mucous plugging are seen compatible with infectious/inflammatory ai rways disease. ACT 112: Negative or not required by law. Electronically signed by: Suraj Shane M.D. 04/01/2024 8:37 AM
[2024-04-01] MEDS: LOSARTAN POTASSIUM 50 MG TAB PO SCH (08:55)
[2024-04-01] MEDS: ADVANCED PROBIOTIC 625 MG CAPSULE PO SCH (08:56)
[2024-04-01] MEDS: SERTRALINE HCL 50 MG TABLET PO SCH (08:56)
[2024-04-01] MEDS: SPIRONOLACTONE 25 MG TAB PO SCH (08:56)
[2024-04-01] MEDS: VERAPAMIL HCL 120 MG TABCR PO SCH (08:56)
[2024-04-01] MEDS: FLUTICASONE FUROATE 200MCG 14 PUFFS/INHALER INH SCH (08:56)
[2024-04-01] MEDS: LORATADINE 10 MG TAB PO SCH (08:56)
[2024-04-01] MEDS: predniSONE 5 MG TAB PO SCH (08:56)
[2024-04-01] MEDS: UMECLIDINIUM/VILANTEROL 62.5/25MCG 7 PUFFS/INHALER INH SCH (08:57)
[2024-04-01] MEDS ORDERED: NON-FORMULARY MEDICATION (Fluticasone-Umeclidin-Vilanter [Trelegy Ellipta] 200-62.5-25 mcg INH SCH (09:00)
[2024-04-01] MEDS ORDERED: LORazepam 0.5 MG TAB PO PRN (09:43)
--- NOTE | 2024-04-01 09:56 | Hospitalist Progress Note ---
Date of Service April 01, 2024 Assessment & Plan (1) Atypical chest pain: (2) Paroxysmal dyspnea: (3) Anginal equivalent: (4) Bronchiectasis: (5) Coronary atherosclerosis of [place] coronary artery: (6) COPD (chronic obstructive pulmonary disease): Plan Patient presents to the emergency department with these paroxysms of severe cough, shortness of breath, chest discomfort. They have been increasing in frequency over the past week. He states he is not hypoxic with these events but he does get lightheaded, near syncopal and extremely anxious. Patient is ruled out for acute coronary syndrome with normal troponins Patient ruled out for pulmonary embolism, CTA of the chest negative for PE Discontinue IV heparin, patient is not on any chronic anticoagulation, no indication for anticoagulation at this time Discontinue Nitropaste Resume home nebulized hypertonic saline and DuoNebs Resume chronic daily Zithromax for suppressive treatments with his bronchiectasis Resume home antitussives and mucolytics Consult pulmonary for his chronic bronchiectasis, question if these paroxysms may be due to some mucous plugging that he then has to clear with significant bouts of coughing and deep breathing Cardiology consult pending, may need to have ischemic burden assessed while here in the hospital due to his frequent readmissions. Had planned on doing stress test as an outpatient. Patient reports being extremely leery and anxious about doing a stress test outpatient. Daughter at bedside and aware of plan for the day as well. 54 minutes spent on reviewing records, communication with patient and family, evaluation of the bedside communication with other medical team Admission and Anticipated Discharge Date Admission Date: March 31, 2024 Subjective Patient has had not had any recurrent paroxysms of dyspnea since being in the hospital and down in the ED. He describes multiple episodes over the past week. Came to the emergency department because he felt that they were getting more frequent and worse. Reports that it is similar to when he required bypass surgery. Physical Exam Physical Exam: Constitutional: Alert HEENT: Mucous membranes moist. Lungs: Decreased breath sounds, prolonged expiratory phase, few rhonchi, no wh eezes CV: S1-S2, regular Abdomen: Soft, nontender, nondistended Extremities: No significant edema Neuro: No focal deficits Psych: Cooperative, anxious Results & Data Results & Data Vital Signs (Past 12 Hours) Vital Signs Temp Pulse Pulse Resp BP BP Pulse Ox 04/01/24 09:30 04/01/24 07:41 36.8 C 92 H 18 126/73 96 04/01/24 05:42 130/72 04/01/24 03:31 36.5 C 73 18 120/63 93 04/01/24 00:58 63 04/01/24 00:48 66 16 04/01/24 00:39 136/71 04/01/24 00:00 80 96 03/31/24 22:40 03/31/24 21:53 36.6 C 66 22 151/62 H 98 O2 Del Method 04/01/24 09:30 Room Air 04/01/24 07:41 Room Air 04/01/24 05:42 04/01/24 03:31 Room Air 04/01/24 00:58 04/01/24 00:48 04/01/24 00:39 04/01/24 00:00 Room Air 03/31/24 22:40 Room Air 03/31/24 21:53 Room Air Diagnostic Findings Reviewed imaging, laboratory and diagnostic studies. Pertinent findings as below. Troponins negative times all sets CTA of the chest negative for PE, consistent with his chronic bronchiectasis Echocardiogram shows normal ejection fraction, diastolic dysfunction no significant wall motion abnormalities BMP and CBC stable/at baseline
--- NOTE | 2024-04-01 10:07 | Cardiology Consultation ---
Date of Consultation April 01, 2024 Assessment & Plan (1) Angina pectoris, unstable: (2) Status post double vessel coronary artery bypass: (3) Exertional dyspnea: Plan Patient is an 83-year-old male with known coronary disease status post coronary bypass grafting. Past cardiac catheterization demonstrating essential occlusion of nikolai vessel disease with grafts patent Presents now with persistently worsening symptoms of exertional dyspnea and chest pressure. Pulmonary status optimized currently no evidence of pulmonary embolus Strongly suggestive symptoms of crescendo angina. Patient appropriately anticoagulated with IV heparin, on aspirin No evidence of myocardial infarction by cardiac enzymes and preserved LV systolic function on echocardiogram Recommendations: Coronary angiography to exclude graft compromise given crescendo pattern Would recommend transfer [facility] consider addition of right heart at time of cath if coronary status stable Patient agreeable discussed in detail with patient and daughter History of Present Illness Reason for Consultation: Exertional chest pressure and dyspnea Requesting Physician: Dr. Hurtado Attending Physician: Tony Hurtado, DO History of Present Illness Patient is an 83-year-old male with complex history with underlying cardiac issues as per most recent outpatient visit 1. ASCVD 1. Status post December 06, 2018 PCI to LAD with 2 MARY and PCI to circumflex with single MARY 2. Status post July 14, 2019 CABG x2, COATS to the LAD and a SVG to the OM. Postoperative CABG course complicated by postoperative anemia, atrial fibrilla tion (without observed reoccurrence), malpositioned Gonzalez, urinary retention, persistent bladder spasms, post-op delirum 3. May 28, 2022 cardiac catheterization with widely patent saphenous vein graft to the OM, widely patent JOHNATHON graft to the LAD, and a widely patent dominant right coronary artery. The nikolai left coronary artery revealed long segments of coronary stents in both the proximal LAD and left circumflex artery with some in-stent stenosis with competitive flow from the nikolai artery to the SVG and JOHNATHON. 4. Beta-araceli intolerance. 5. Past poor tolerance to nitrates 2. Hypertension, well controlled 3. Dyslipidemia. Optimal LDL goal less than 70 mg/dL. LDL cholesterol 64 mg/dL on 08/19/2023. Prescribed atorvastatin 80 mg/day and ezetimibe (Zetia) 10 mg/day 4. Bilateral internal carotid artery disease. March 2022 carotid duplex revealed stable mild disease. Follow-up duplex planned for March 2024. 5. Bronchiectasis 6. Moderate persistent asthma. Patient represented for hospitalization with exertional dyspnea and chest pressure now with minimal exertion. Treated for similar complaints mid February with history of COVID infection in January. Pulmonary status now stabilized minimal sputum production no wheezing or cough, "clear as it has been in a while" Still having similar symptoms of chest pressure and pain with resultant ER presentation due to complaints. No tachypalpitations no fevers chills no edema. Appetite and weight are stable. No dizziness or lightheadedness. No bleeding difficulty EKGs without acute injury pattern. No troponin elevation Echocardiogram with preserved wall motion, no pulmonary hypertension Chest CTA without evidence of pulmonary embolus with chronic bronchiectasis changes Allergies Allergy/AdvReac Type Severity Reaction Status Date / Time Beta-Blockers AdvReac Mild History Verified 03/08/24 18:40 (Beta-Adrenergic Bloc intolerance as per records codeine AdvReac Mild N/V Verified 03/08/24 18:40 Home Medications Medication Instructions Recorded Confirmed Type sertraline 50 mg tablet (Zoloft) 50 mg PO QAM 10/31/18 03/31/24 History tamsulosin 0.4 mg capsule (Flomax) 0.4 mg PO HS 10/31/18 03/31/24 History albuterol sulfate 90 mcg/actuation 2 puff inhalation Q6H PRN 07/12/19 03/31/24 History aerosol inhaler Shortness Of Breath atorvastatin 80 mg tablet 80 mg PO Q OTHER DAY 12/06/20 03/31/24 History cholecalciferol (vitamin D3) 25 25 mcg PO 3XWK 12/06/20 03/31/24 History mcg (1,000 unit) tablet (Vitamin D3) famotidine 20 mg tablet (Pepcid) 20 mg PO BID 12/06/20 03/31/24 History losartan 100 mg tablet 100 mg PO QAM 12/06/20 03/31/24 History aspirin 81 mg tablet,delayed 81 mg PO QPM 01/13/21 03/31/24 History release Lactobacillus acidophilus 10 10,000 mmu cells PO DAILY 05/26/22 03/31/24 History billion cell capsule (Probiotic) ezetimibe 10 mg tablet 10 mg PO QAM 05/26/22 03/31/24 History ipratropium 0.5 mg-albuterol 3 mg 3 ml inhalation Q12H Shortness Of 05/26/22 03/31/24 History (2.5 mg base)/3 mL nebulization Breath Or Wheezing soln montelukast 10 mg tablet 10 mg PO HS 05/26/22 03/31/24 History spironolactone 25 mg tablet 25 mg PO QAM 05/26/22 03/31/24 History acetaminophen 500 mg tablet 500 mg PO Q4H PRN Pain 11/24/23 03/31/24 History dextran 70-hypromellose 1 applic OPB UD PRN Eye Irritation 11/24/23 03/31/24 History fluorouracil 0.5 % topical cream 1 applic topical HS 11/24/23 03/31/24 History furosemide 20 mg tablet 20 mg PO 3XWK 11/24/23 03/31/24 History ipratropium bromide 42 mcg (0.06 1 spray intranasal HS 11/24/23 03/31/24 History %) nasal spray levothyroxine 125 mcg tablet 125 mcg PO DAILYBB 11/24/23 03/31/24 History prednisolone acetate 1 % eye See Rx Instructions .Route .COMPLEX 11/24/23 03/31/24 History drops,suspension psyllium 1 tbsp PO DAILY 11/24/23 03/31/24 History triamcinolone acetonide 55 mcg 1 spray intranasal DAILY Congestion 11/24/23 03/31/24 History nasal spray aerosol (Nasacort Allergy) budesonide 0.5 mg/2 mL suspension 0.5 mg inhalation Q12H 11/25/23 03/31/24 History for nebulization fluticasone fur. 200 mcg-umeclid 1 inh inhalation DAILY 11/25/23 03/31/24 History 62.5 mcg-vilant 25 mcg inhalat.powder (Trelegy Ellipta) verapamil 120 mg tablet,extended 120 mg PO QAM 11/25/23 03/31/24 History release dupilumab 300 mg/2 mL subcutaneous 300 mg subcut UD 03/08/24 03/31/24 History pen injector (Dupixent) loratadine 10 mg tablet (Claritin) 10 mg PO DAILY 03/08/24 03/31/24 History prednisone 5 mg tablet 5 mg PO DAILY 03/08/24 03/31/24 History benzonatate 100 mg capsule 200 mg (2 x 100 mg) PO TID #90 caps 03/10/24 03/31/24 Rx guaifenesin 600 mg tablet, 1,200 mg (2 x 600 mg) PO BID 30 03/10/24 03/31/24 Rx extended release 12 hr (Mucinex) days #120 tabs hydrocodone-homatropine 5 mg-1.5 5 ml PO Q6H PRN severe cough #120 03/10/24 03/31/24 Rx mg/5 mL oral syrup (Hydromet) mL sodium chloride 7 % for 4 ml NEB BIDR 30 days #240 mL 03/10/24 03/31/24 Rx nebulization azithromycin 500 mg tablet 500 mg PO DIRECTED 03/31/24 03/31/24 History Patient History Medical History (Updated 04/01/24 @ 09:52 by Tony Hurtado DO) History of Graves' disease History of pulmonary embolism 2010, AC since discontinued Abdominal pain Ileus Post-ERCP acute pancreatitis Acute pancreatitis High serum chloride Leukocytosis Afib post-op CABG, no known recurrences per pt Hypokalemia Clostridium difficile carrier Hypertension Surgical History (Updated 03/08/24 @ 20:00 by aKia Martinez PA-C) History of vasectomy History of thyroidectomy, total H/O rotator cuff surgery History of appendectomy History of cardiac cath CABG (2018) + stents (MARY to prox Lcx, MARY x2 to mid LAD- 2018) History of cholecystectomy Lap cholecystectomy, open repair of umbilical hernia (12/09/2020): Grade 2 view, MAC #3, ETT 7.5 at [facility] Family History Father Cancer Prostate and bladder Mother Stroke Breast cancer Social History Smoking Status: Former smoker Tobacco Type: Cigarettes Age Quit Using Tobacco: 27; Second Hand Exposure: Yes (faher smoked); Do You Dip or Chew Tobacco: No; Tobacco Cessation Education Requested by Patient: No Hx Alcohol Use: No Hx Substance Use: No Preferred Language: Bolivian Communication Ability: Effective Wheat Inspector Required: No Beliefs That Will Affect Care: None marital status: Current Living Situation: Spouse current occupational status: retired current occupation: Retired Other Information That Helps Us Care for You: No Feels Safe at Home: Yes Safety Concerns: Feels Safe At This Time Assistive Devices: Cane and Glasses Review of Systems Review of Systems: All systems reviewed & are unremarkable except as noted in HPI & below Physical Exam Constitutional: WD/WN, vitals as above no acute distress Eyes: PERRL, conjunctivae normal, anicteric sclerae ENMT: external ear and nose normal, oropharynx normal Neck: trachea midline, no thyromegaly Respiratory: normal respiratory effort Auscultation: + diminished lung sounds; no rhonchi and no wheezes Cardiovascular: RRR, no murmur, no edema Gastrointestinal (Abdomen): normal bowel sounds, soft, nontender, no hepatosplenomegaly Musculoskeletal: no cyanosis or clubbing, extremities motor strength 5/5 Results & Data Vital Signs (Past 12 Hours) Vital Signs Temp Pulse Pulse Resp BP BP Pulse Ox 04/01/24 09:30 04/01/24 07:41 36.8 C 92 H 18 126/73 96 04/01/24 05:42 130/72 04/01/24 03:31 36.5 C 73 18 120/63 93 04/01/24 00:58 63 04/01/24 00:48 66 16 04/01/24 00:39 136/71 04/01/24 00:00 80 96 03/31/24 22:40 O2 Del Method 04/01/24 09:30 Room Air 04/01/24 07:41 Room Air 04/01/24 05:42 04/01/24 03:31 Room Air 04/01/24 00:58 04/01/24 00:48 04/01/24 00:39 04/01/24 00:00 Room Air 03/31/24 22:40 Room Air Laboratory Results Laboratory Results - last 24 hr 03/31/24 03/31/24 03/31/24 12:10 17:38 22:34 WBC 8.67 RBC 4.75 Hgb 14.5 Hct 42.5 MCV 89.5 MCH 30.5 MCHC 34.1 RDW Std Deviation 48.7 H RDW Coeff of Valentino 14.8 H Plt Count 187 MPV 10.3 Immature Gran % (Auto) 1.7 Neut % (Auto) 69.3 Lymph % (Auto) 17.2 [place] % (Auto) 9.6 Eos % (Auto) 1.5 Baso % (Auto) 0.7 Neut # (Auto) 6.01 Lymph # (Auto) 1.49 [place] # (Auto) 0.83 H Eos # (Auto) 0.13 Baso # (Auto) 0.06 Immature Gran # (Auto) 0.15 PT 10.9 INR 1.0 APTT 27 PTT Ratio 1.0 D-Dimer 510 H* Heparin Anti-Xa, Unfract 0.53 Sodium 139 Potassium 4.2 Chloride 108 H Carbon Dioxide 22 Anion Gap 9 BUN 25 H Creatinine 1.21 Est Cr Clr Drug Dosing 51.9 Est GFR ( Amer) 64.7 Est GFR (Non-Af Amer) 55.8 BUN/Creatinine Ratio 20.7 H Glucose 87 Calcium 9.7 Total Bilirubin 0.8 AST 16 ALT 14 Alkaline Phosphatase 64 Troponin I High Sens 8.6 8.5 13.2 D Total Protein 6.9 Albumin 4.3 Globulin 2.6 Albumin/Globulin Ratio 1.7 Lipase 36 /15/24 05:25 WBC 7.47 RBC 4.26 L Hgb 12.9 L Hct 38.2 L MCV 89.7 MCH 30.3 MCHC 33.8 RDW Std Deviation 47.9 H RDW Coeff of Valentino 14.8 H Plt Count 149 MPV 10.4 Immature Gran % (Auto) 1.3 Neut % (Auto) 64.4 Lymph % (Auto) 22.1 [place] % (Auto) 9.2 Eos % (Auto) 2.3 Baso % (Auto) 0.7 Neut # (Auto) 4.81 Lymph # (Auto) 1.65 [place] # (Auto) 0.69 H Eos # (Auto) 0.17 Baso # (Auto) 0.05 Immature Gran # (Auto) 0.10 PT INR APTT PTT Ratio D-Dimer Heparin Anti-Xa, Unfract 0.68 Sodium 137 Potassium 3.8 Chloride 112 H Carbon Dioxide 18 L Anion Gap 7 BUN 19 Creatinine 1.03 Est Cr Clr Drug Dosing 61.4 Est GFR ( Amer) 78.6 Est GFR (Non-Af Amer) 67.8 BUN/Creatinine Ratio 18.4 Glucose 102 H Calcium 8.6 Total Bilirubin AST ALT Alkaline Phosphatase Troponin I High Sens Total Protein Albumin Globulin Albumin/Globulin Ratio Lipase
[2024-04-01] MEDS: AZITHROMYCIN 250 MG TAB PO SCH (10:22)
[2024-04-01] MEDS: guaiFENesin 600 MG TABCR PO SCH (10:22)
--- NOTE | 2024-04-01 10:27 | Pulmonary Consultation ---
Date of Consultation April 01, 2024 Assessment & Plan (1) Paroxysmal dyspnea: (2) Bronchiectasis: (3) Abnormal CT scan, chest: (4) COVID-19: Plan CTA chest 04/01/2024 personally reviewed: Paraseptal emphysema appreciated bilaterally upper lobes Bronchiectasis appreciated bilateral lower lobes more on the left side Minimal station 7 lymphadenopathy Previously appreciated right middle lobe consolidative process has resolved 2D echo 04/01/2024: EF 60-65%, grade 2 diastolic dysfunction, RV normal in size and function -- Bronchiectasis Not in any exacerbation Would recommend to continue with nebulized hypertonic saline along with nebulized albuterol Mucinex as well as flutter valve --COVID-19 positive No significant pulmonary infiltrate on the chest x-ray Saturating well on room air No need for treatment Plan: Would recommend to continue with nebulized hypertonic saline along with nebulized albuterol Mucinex as well as flutter valve Please note the above document was generated using voice recognition software. It may contain grammatical, syntax or spelling errors.Any formal questions or concerns about the content, text or information contained within the body of this dictation should be directly addressed to the provider for clarification. History of Present Illness Attending Physician: Tony Hurtado DO History of Present Illness 83-year-old male presented to the hospital with complaints of worsening shortness of breath Past medical history: Bronchiectasis, follows up with pulmonary in [place], asthma Pulmonary consulted for history of bronchiectasis and shortness of breath At the time of examination patient's as well as son were in the room He was saturating 95% on room air Not in any respiratory distress He says that he is compliant with his nebulizer treatment of 7% saline, Mucinex as well as chest vest therapy on a regular basis He is bringing up clear phlegm. Denies any hemoptysis No fever or chills He also takes Dupixent. He was having chest pain on exertion with presyncopal episode leading to him coming to the hospital Denies any dysuria, or diarrhea No headache, no blurry vision No fever or chills No difficulty swallowing, no aspiration like episodes Social history: Approximately 90-[place]nm-[place] smoking history quit in the 1970s No birds or poultry nearby Allergies Allergy/AdvReac Type Severity Reaction Status Date / Time Beta-Blockers AdvReac Mild History Verified 03/08/24 18:40 (Beta-Adrenergic Bloc intolerance as per records codeine AdvReac Mild N/V Verified 03/08/24 18:40 Home Medications Medication Instructions Recorded Confirmed Type sertraline 50 mg tablet (Zoloft) 50 mg PO QAM 10/31/18 03/31/24 History tamsulosin 0.4 mg capsule (Flomax) 0.4 mg PO HS 10/31/18 03/31/24 History albuterol sulfate 90 mcg/actuation 2 puff inhalation Q6H PRN 07/12/19 03/31/24 History aerosol inhaler Shortness Of Breath atorvastatin 80 mg tablet 80 mg PO Q OTHER DAY 12/06/20 03/31/24 History cholecalciferol (vitamin D3) 25 25 mcg PO 3XWK 12/06/20 03/31/24 History mcg (1,000 unit) tablet (Vitamin D3) famotidine 20 mg tablet (Pepcid) 20 mg PO BID 12/06/20 03/31/24 History losartan 100 mg tablet 100 mg PO QAM 12/06/20 03/31/24 History aspirin 81 mg tablet,delayed 81 mg PO QPM 01/13/21 03/31/24 History release Lactobacillus acidophilus 10 10,000 mmu cells PO DAILY 05/26/22 03/31/24 History billion cell capsule (Probiotic) ezetimibe 10 mg tablet 10 mg PO QAM 05/26/22 03/31/24 History ipratropium 0.5 mg-albuterol 3 mg 3 ml inhalation Q12H Shortness Of 05/26/22 03/31/24 History (2.5 mg base)/3 mL nebulization Breath Or Wheezing soln montelukast 10 mg tablet 10 mg PO HS 05/26/22 03/31/24 History spironolactone 25 mg tablet 25 mg PO QAM 05/26/22 03/31/24 History acetaminophen 500 mg tablet 500 mg PO Q4H PRN Pain 11/24/23 03/31/24 History dextran 70-hypromellose 1 applic OPB UD PRN Eye Irritation 11/24/23 03/31/24 History fluorouracil 0.5 % topical cream 1 applic topical HS 11/24/23 03/31/24 History furosemide 20 mg tablet 20 mg PO 3XWK 11/24/23 03/31/24 History ipratropium bromide 42 mcg (0.06 1 spray intranasal HS 11/24/23 03/31/24 History %) nasal spray levothyroxine 125 mcg tablet 125 mcg PO DAILYBB 11/24/23 03/31/24 History prednisolone acetate 1 % eye See Rx Instructions .Route .COMPLEX 11/24/23 03/31/24 History drops,suspension psyllium 1 tbsp PO DAILY 11/24/23 03/31/24 History triamcinolone acetonide 55 mcg 1 spray intranasal DAILY Congestion 11/24/23 03/31/24 History nasal spray aerosol (Nasacort Allergy) budesonide 0.5 mg/2 mL suspension 0.5 mg inhalation Q12H 11/25/23 03/31/24 History for nebulization fluticasone fur. 200 mcg-umeclid 1 inh inhalation DAILY 11/25/23 03/31/24 History 62.5 mcg-vilant 25 mcg inhalat.powder (Trelegy Ellipta) verapamil 120 mg tablet,extended 120 mg PO QAM 11/25/23 03/31/24 History release dupilumab 300 mg/2 mL subcutaneous 300 mg subcut UD 03/08/24 03/31/24 History pen injector (Dupixent) loratadine 10 mg tablet (Claritin) 10 mg PO DAILY 03/08/24 03/31/24 History prednisone 5 mg tablet 5 mg PO DAILY 03/08/24 03/31/24 History benzonatate 100 mg capsule 200 mg (2 x 100 mg) PO TID #90 caps 03/10/24 03/31/24 Rx guaifenesin 600 mg tablet, 1,200 mg (2 x 600 mg) PO BID 30 03/10/24 03/31/24 Rx extended release 12 hr (Mucinex) days #120 tabs hydrocodone-homatropine 5 mg-1.5 5 ml PO Q6H PRN severe cough #120 03/10/24 03/31/24 Rx mg/5 mL oral syrup (Hydromet) mL sodium chloride 7 % for 4 ml NEB BIDR 30 days #240 mL 03/10/24 03/31/24 Rx nebulization azithromycin 500 mg tablet 500 mg PO DIRECTED 03/31/24 03/31/24 History Patient History Medical History (Updated 04/01/24 @ 14:08 by Arnav Siegel MD, [facility]) History of Graves' disease History of pulmonary embolism 2010, AC since discontinued Abdominal pain Ileus Post-ERCP acute pancreatitis Acute pancreatitis High serum chloride Leukocytosis Afib post-op CABG, no known recurrences per pt Hypokalemia Clostridium difficile carrier Hypertension Surgical History (Updated 03/08/24 @ 20:00 by Kaia Martinez PA-C) History of vasectomy History of thyroidectomy, total H/O rotator cuff surgery History of appendectomy History of cardiac cath CABG (2018) + stents (MARY to prox Lcx, MARY x2 to mid LAD- 2018) History of cholecystectomy Lap cholecystectomy, open repair of umbilical hernia (12/09/2020): Grade 2 view, MAC #3, ETT 7.5 at [facility] Family History Father Cancer Prostate and bladder Mother Stroke Breast cancer Social History Smoking Status: Former smoker Tobacco Type: Cigarettes Age Quit Using Tobacco: 27; Second Hand Exposure: Yes (faher smoked); Do You Dip or Chew Tobacco: No; Tobacco Cessation Education Requested by Patient: No Hx Alcohol Use: No Hx Substance Use: No Preferred Language: Spanish Communication Ability: Effective Engineer Sergeant Required: No Beliefs That Will Affect Care: None marital status: Current Living Situation: Spouse current occupational status: retired current occupation: Retired Other Information That Helps Us Care for You: No Feels Safe at Home: Yes Safety Concerns: Feels Safe At This Time Assistive Devices: Cane and Glasses Review of Systems 2 Review of Systems: All systems reviewed & are unremarkable except as noted in HPI & below Physical Exam 2 Physical Exam: Constitutional: No acute distress HEENT: EOMI, PERRLA Respiratory system: Decreased air entry bilaterally, no wheeze, no rhonchi, positive crackles bilateral lower lobes CVS: S1-S2 positive, positive 2 out of 6 systolic murmur appreciated best at apex Abdomen: Soft, nontender, nondistended, positive bowel sounds x4 Extremities: +2 pulses bilaterally radialis/ dorsalis pedis, no cyanosis, no edema Neuro: Awake alert oriented x3 Psych: Normal mood and affect G/U: No Gonzalez Skin: no rashes, warm and dry Lymphatic: no cervical or axillary lymphadenopathy Results & Data Results & Data Vital Signs (Past 12 Hours) Vital Signs Temp Pulse Pulse Resp BP BP Pulse Ox 04/01/24 09:30 04/01/24 07:41 36.8 C 92 H 18 126/73 96 04/01/24 05:42 130/72 04/01/24 03:31 36.5 C 73 18 120/63 93 04/01/24 00:58 63 04/01/24 00:48 66 16 04/01/24 00:39 136/71 04/01/24 00:00 80 96 03/31/24 22:40 O2 Del Method 04/01/24 09:30 Room Air 04/01/24 07:41 Room Air 04/01/24 05:42 04/01/24 03:31 Room Air 04/01/24 00:58 04/01/24 00:48 04/01/24 00:39 04/01/24 00:00 Room Air 03/31/24 22:40 Room Air Laboratory Results 04/01/24 05:25 04/01/24 05:25 PG Care Time/CCT Total # of Minutes Spent Total Time Spent with Patient: Total time spent is greater than 50% in coordination of care (as documented) at patient's floor/unit and/or counseling patient: Coding Level of Care Code 37940 INT INP/OBS CARE 3/75MIN Diagnoses Paroxysmal dyspnea R06.[address] scan, chest R93.89 COVID-19 U07.1
--- NOTE | 2024-04-01 10:59 | Discharge Summary ---
Discharge Summary Date of Service April 01, 2024 Principal Dx & Hospital Course #1 = Principal Diagnosis (1) Paroxysmal dyspnea: (2) Anginal equivalent: (3) Bronchiectasis: (4) Coronary atherosclerosis of [place] coronary artery: (5) COPD (chronic obstructive pulmonary disease): Plan Patient presents to the emergency department with these paroxysms of severe cough, shortness of breath, chest discomfort. They have been increasing in frequency over the past week. He states he is not hypoxic with these events but he does get lightheaded, near syncopal and extremely anxious. Patient was admitted to the hospital for ongoing monitoring. There is no significant arrhythmias noted on telemetry. He was ruled out for acute coronary syndrome with 3 normal troponins. He was empirically started on IV heparin for his destin na. D-dimer was elevated. Patient underwent CTA of the chest. CTA was negative for pulmonary embolism. She has chronic bronchiectasis without any new acute findings. Patient was evaluated by cardiology. Due to the patient's increasing symptomatology and without evidence of an obvious pulmonary etiology was recommended that he undergo cardiac catheterization. Due to the patient's previous coronary bypass and complicated coronary anatomy is recommended he be transferred to [facility] where he has had his cardiac procedures previously. Patient was discussed with Dr. Fischer at [facility], he graciously accepted patient in transfer for evaluation for cardiac cath. Time of discharge the patient was currently asymptomatic at rest. He was not requiring any supplemental oxygen. IV heparin was discontinued due to the fact that he ruled out for acute coronary syndrome and PE. Patient was informed of plans for transfer and was in agreement to the plan of care. Transfer to [facility] when bed available Notes For Next Care Provider Medication Changes From Visit None Admission HPI Per Admitting Provider 83-year-old male with history of CAD/CABG, paroxysmal atrial fibrillation on aspirin, hypertension, bronchiectasis, asthma, history of PE, presenting with episodes of chest pain with exertional dyspnea times few days. Patient was recently admitted to [facility] the last week of February for pneumonia which was treated with a course of antibiotics and steroids. He is also following up with the [facility] cardiology clinic for symptoms of chest pain and shortness of breath. He is scheduled to have a stress test this coming week. Since discharge, the patient states that his cough has significantly improved. However he still is having episodes of chest pain and dyspnea with minimal exertion. Symptoms have been more frequent and has been worsening over the past week. Yesterday, patient walked a few steps from a chair to the dining table and immediately developed chest pain with shortness of breath and felt that he was going to pass out. Similar symptoms occurred when patient walked from the porch to the driveway. At the ER, patient was received with stable vital signs, saturating more than 90% on room air. Troponin x 1 is negative, EKG showing nonspecific T wave inversions in the inferior leads. He was given nitro tablets at the ER with left much relief of symptoms. Admission Exam Per Admitting Provider See H&P Discharge Exam Constitutional: Alert HEENT: Mucous membranes moist. Lungs: Decreased breath sounds, expiratory phase prolonged, few rhonchi, no wheezes CV: S1-S2, regular Abdomen: Soft, nontender, nondistended Extremities: No significant edema Neuro: No focal deficits Psych: Cooperative, normal mood Updated Medication List Medication Instructions Recorded Confirmed Type sertraline 50 mg tablet (Zoloft) 50 mg PO QAM 10/31/18 03/31/24 History tamsulosin 0.4 mg capsule (Flomax) 0.4 mg PO HS 10/31/18 03/31/24 History albuterol sulfate 90 mcg/actuation 2 puff inhalation Q6H PRN 07/12/19 03/31/24 History aerosol inhaler Shortness Of Breath atorvastatin 80 mg tablet 80 mg PO Q OTHER DAY 12/06/20 03/31/24 History cholecalciferol (vitamin D3) 25 25 mcg PO 3XWK 12/06/20 03/31/24 History mcg (1,000 unit) tablet (Vitamin D3) famotidine 20 mg tablet (Pepcid) 20 mg PO BID 12/06/20 03/31/24 History losartan 100 mg tablet 100 mg PO QAM 12/06/20 03/31/24 History aspirin 81 mg tablet,delayed 81 mg PO QPM 01/13/21 03/31/24 History release Lactobacillus acidophilus 10 10,000 mmu cells PO DAILY 05/26/22 03/31/24 History billion cell capsule (Probiotic) ezetimibe 10 mg tablet 10 mg PO QAM 05/26/22 03/31/24 History ipratropium 0.5 mg-albuterol 3 mg 3 ml inhalation Q12H Shortness Of 05/26/22 03/31/24 History (2.5 mg base)/3 mL nebulization Breath Or Wheezing soln montelukast 10 mg tablet 10 mg PO HS 05/26/22 03/31/24 History spironolactone 25 mg tablet 25 mg PO QAM 05/26/22 03/31/24 History acetaminophen 500 mg tablet 500 mg PO Q4H PRN Pain 11/24/23 03/31/24 History dextran 70-hypromellose 1 applic OPB UD PRN Eye Irritation 11/24/23 03/31/24 History fluorouracil 0.5 % topical cream 1 applic topical HS 11/24/23 03/31/24 History furosemide 20 mg tablet 20 mg PO 3XWK 11/24/23 03/31/24 History ipratropium bromide 42 mcg (0.06 1 spray intranasal HS 11/24/23 03/31/24 History %) nasal spray levothyroxine 125 mcg tablet 125 mcg PO DAILYBB 11/24/23 03/31/24 History prednisolone acetate 1 % eye See Rx Instructions .Route .COMPLEX 11/24/23 03/31/24 History drops,suspension psyllium 1 tbsp PO DAILY 11/24/23 03/31/24 History triamcinolone acetonide 55 mcg 1 spray intranasal DAILY Congestion 11/24/23 03/31/24 History nasal spray aerosol (Nasacort Allergy) budesonide 0.5 mg/2 mL suspension 0.5 mg inhalation Q12H 11/25/23 03/31/24 History for nebulization fluticasone fur. 200 mcg-umeclid 1 inh inhalation DAILY 11/25/23 03/31/24 History 62.5 mcg-vilant 25 mcg inhalat.powder (Trelegy Ellipta) verapamil 120 mg tablet,extended 120 mg PO QAM 11/25/23 03/31/24 History release dupilumab 300 mg/2 mL subcutaneous 300 mg subcut UD 03/08/24 03/31/24 History pen injector (Dupixent) loratadine 10 mg tablet (Claritin) 10 mg PO DAILY 03/08/24 03/31/24 History prednisone 5 mg tablet 5 mg PO DAILY 03/08/24 03/31/24 History benzonatate 100 mg capsule 200 mg (2 x 100 mg) PO TID #90 caps 03/10/24 03/31/24 Rx guaifenesin 600 mg tablet, 1,200 mg (2 x 600 mg) PO BID 30 03/10/24 03/31/24 Rx extended release 12 hr (Mucinex) days #120 tabs hydrocodone-homatropine 5 mg-1.5 5 ml PO Q6H PRN severe cough #120 03/10/24 03/31/24 Rx mg/5 mL oral syrup (Hydromet) mL sodium chloride 7 % for 4 ml NEB BIDR 30 days #240 mL 03/10/24 03/31/24 Rx nebulization azithromycin 500 mg tablet 500 mg PO DIRECTED 03/31/24 03/31/24 History Hospital Stay Data Consultations 03/31/24 13:39 ED Decision to Admit Stat 03/31/24 16:46 Consult Cardiology Routine 04/01/24 09:38 Consult Pulmonology Routine Diagnostic Imagining Performed 04/01/24 07:03 CT angio chest PE protocol Urgent Reviewed imaging, laboratory and diagnostic studies. Pertinent findings as below. CBC and BMP stable and at baseline levels Troponins negative x 3 sets within normal range D-dimer 510 CTA of the chest negative for PE, chronic mucous plugging and bronchial thickening consistent with his bronchiectasis Echocardiogram: Ejection fraction 60 to 65% some moderate left ventricular hypertrophy, grade 2 diastolic dysfunction, no evidence of pulmonary pretension EKG sinus rhythm, incomplete right bundle branch block, possible changes inferiorly Pending Results Patient Have Any Pending Studies at Discharge: No Discharge Instructions Given to Patient (Per Discharging Provider) Recommend transferring to [facility] for specialty interventional cardiology evaluation for possible cardiac catheterization Total Time Total Time Spent Total Time Spent (In Minutes): 68
[2024-04-01] MEDS: ALBUT/IPRATROP 3MG/0.5MG NEB 3 ML VIAL INH SCH (11:10)
[2024-04-01 11:21] VITALS: BP 121/71; PULSE 76; RESP 18; TEMP 97.9; O2SAT 96
[2024-04-01 12:47] LABS: Influenza A virus by PCR Negative (Neg); Influenza B virus by PCR Negative (Neg); RSV by PCR Negative (Neg); SARS CoV2 RNA(COVID-19) Ceph POSITIVE (Negative)
[2024-04-01] MEDS: BENZONATATE 100 MG CAPSULE PO SCH (13:21)
[2024-04-01] MEDS ORDERED: ATORVASTATIN 40 MG TAB PO SCH (14:30)
[2024-04-01] MEDS ORDERED: SODIUM CHLOR 7% 4 ML NEB NEB SCH (19:00)
[2024-04-02] MEDS ORDERED: FUROSEMIDE 20 MG TAB PO SCH (14:30)
--- NOTE | 2024-04-03 05:24 | Electrocardiogram Report ---
Test Reason : Blood Pressure : */* mmHG Vent. Rate : 82 BPM Atrial Rate : 82 BPM P-R Int : 148 ms QRS Dur : 96 ms QT Int : 362 ms P-R-T Axes : -14 10 -2 degrees QTcB Int : 422 ms Normal sinus rhythm Cannot rule out Anterior infarct , age undetermined Abnormal ECG When compared with ECG of 08-Mar-2024 15:25, Nonspecific T wave abnormality now evident in Inferior leads Confirmed by Jayden Sigala ([id number]) on 04/03/2024 5:23:48 AM Referred By: REFERRED SELF Confirmed By: Jayden Sigala
--- NOTE | 2024-04-03 05:30 | Electrocardiogram Report ---
Test Reason : Blood Pressure : */* mmHG Vent. Rate : 57 BPM Atrial Rate : 57 BPM P-R Int : 174 ms QRS Dur : 106 ms QT Int : 440 ms P-R-T Axes : 57 22 63 degrees QTcB Int : 428 ms Sinus bradycardia Possible Inferior infarct , age undetermined Abnormal ECG When compared with ECG of 31-Mar-2024 12:04, (unconfirmed) Borderline criteria for Inferior infarct are now Present Nonspecific T wave abnormality no longer evident in Inferior leads Confirmed by Jayden Sigala ([id number]) on 04/03/2024 5:30:11 AM Referred By: REFERRED SELF Confirmed By: Jayden Sigala
--- NOTE | 2024-04-03 06:02 | Electrocardiogram Report ---
Test Reason : Blood Pressure : */* mmHG Vent. Rate : 71 BPM Atrial Rate : 71 BPM P-R Int : 164 ms QRS Dur : 98 ms QT Int : 412 ms P-R-T Axes : 56 16 59 degrees QTcB Int : 447 ms Normal sinus rhythm Incomplete right bundle branch block Possible Inferior infarct (cited on or before 31-Mar-2024) Abnormal ECG When compared with ECG of 31-Mar-2024 14:58, (unconfirmed) Incomplete right bundle branch block is now Present Confirmed by Jayden Sigala ([id number]) on 04/03/2024 6:02:23 AM Referred By: REFERRED SELF Confirmed By: Jayden Sigala
== END 2024-04-01 15:34 | disposition short-term general hospital (02) | DRG 313 ==
LOC: ED 11:54 → SUATTDRO 14:24 → EDINP 14:24 → 2S 16:47

== ENCOUNTER 2025-03-07 15:25 | Observation (INO) ==
--- NOTE | 2025-03-07 16:27 | Emergency Department Note ---
Impression & Plan Closed pelvic fracture, Fall, Acute hip pain ED Provider Note NAME: LAURA FRAGA AGE: 84 SEX: M : 1940 ARRIVES VIA: Walk-In INFORMANT: Patient ED PROVIDER(S): Bhupinder Bangura DO CHIEF COMPLAINT: Fall HPI: Patient is an 84-year-old male with a past medical history of CAD, paroxysmal dyspnea who presents to the ER following a fall. He was going from one room to the other and he missed a step and fell down onto his side. He complains of left shoulder pain. He did hit his head. He has left-sided head and neck pain. Denies any weakness or numbness in the arms or legs. Does complain of left hip pain. No tingling or numbness. ADDITIONAL HISTORY OBTAINED: Per HPI Chronic Medical/Social Conditions Affecting Care: Per HPI PAST MEDICAL HISTORY:See Below PAST SURGICAL HISTORY:See Below FAMILY HISTORY:See Below SOCIAL HISTORY:See Below HOME MEDICATIONS:See Below ALLERGIES:See Below VITALS:See Below PHYSICAL EXAMINATION: GENERAL: alert, well appearing, well nourished, no distress, non-toxic HEAD: normal cephalic, atraumatic EYE EXAM: normal conjunctiva, PERRL and EOM's grossly intact OROPHARYNX: no exudate, no erythema, lips, buccal mucosa, and tongue normal and mucous membranes are moist NECK: supple, no nuchal rigidity, no adenopathy, non-tender CHEST: stable to compression anteriorly and posteriorly LUNGS: clear to auscultation. Normal chest wall mechanics HEART: no murmurs, S1 normal and S2 normal ABDOMEN: abdomen soft, non-tender, normo-active bowel sounds, no masses, no rebound or guarding. PELVIS: stable to compression anteriorly and posteriorly but tenderness over the left hip and proximal femur BACK: Back is symmetrical on inspection and there is no deformity, no midline tenderness, no CVA tenderness. UPPER EXTREMITIES: full active and passive range of motion of all joints without tenderness to palpation LOWER EXTREMITIES: full active and passive range of motion of all joints without tenderness to palpation with the exception of the left hip with pain with flexion extension of the hip. DP 2 out of 4. Gross station intact. NEURO EXAM: Normal sensorium, cranial nerves II-XII grossly intact, normal speech, no gross weakness of arms, no gross weakness of legs. GCS: 15. MEDICAL DECISION MAKING: Patient is an 84-year-old male who presents to the ER following a mechanical fall. IV was established and blood work was obtained. Labs show a mild leukocytosis of 13,000. No significant anemia. BMP with LFTs and bilirubin were reassuring. X-ray of the shoulder pelvis femur and chest showed no acute fractures. CT head and cervical spine was negative. Patient was still unable to walk consequently CT of the hip was obtained and showed a pelvic fracture. He was given IV morphine x 2 combination with IV Toradol. Updated bedside. Discussed with hospitalist for further evaluation management treatment. Consults/Care Managements Discussions: Per MDM Triage Nursing notes reviewed. Limited review of prior medical records performed Vital Signs: reviewed and remarkable for no significant abnormalities Differential diagnosis: Differential diagnoses include major intracranial, cervical, spinal, thoracic, abdominal, pelvic and neurologic injury. Fracture, contusion, sprain, strain, laceration, abrasions included as well. ER treatment provided: See below Diagnostics interpreted by me include EKG and cardiac monitoring as listed below: -ECG: none -Laboratory studies:Interpreted by me as stated above in MDM and shown below. Imaging studies: Xrays: As interpreted by me: X-ray of the pelvis, shoulder, femur and chest showed no acute fractures CTs show: CT head cervical spine and hip shows pelvic fracture Procedures:none Critical Care: None Past Med/Surg History Problem List (Updated 03/07/25 @ 20:03 by Bhupinder Bangura DO) Acute hip pain (Acute) Fall (Acute) Closed pelvic fracture (Acute) COVID-19 Anginal equivalent Paroxysmal dyspnea Atypical chest pain CAD (coronary artery disease) (Acute) Chest pain (Acute) Dyspnea on minimal exertion Post-COVID chronic cough Multifocal pneumonia Bronchiectasis Paroxysmal atrial fibrillation Dyspnea Leukocytosis (Acute) Exertional dyspnea (Acute) Pneumonia (Acute) Precordial chest pain (Acute) Bronchiectasis with (acute) exacerbation COPD exacerbation (Acute) Hypoxia (Acute) Pneumonia (Acute) Mild persistent asthma Abnormal CT scan, chest GERD (gastroesophageal reflux disease) Retrosternal chest pain (Acute) Hyperbilirubinemia Depression CAD (coronary artery disease) CABG (2019) + stents (MARY to prox Lcx, MARY x2 to mid LAD- 2019) DVT prophylaxis Cholelithiasis Angina pectoris, unstable (Acute) Chest pain Hypertensive urgency Acute cholecystitis Umbilical hernia Diffuse abdominal pain (Acute) Acute cholecystitis (Acute) Vomiting (Acute) Tachycardia (Acute) Fever (Acute) Encounter for pre-operative examination Preoperative cardiovascular examination Troponin I above reference range Elevated liver function tests Encounter for pre-operative examination Cholangitis Elevated troponin Encounter for pre-operative examination HTN (hypertension) DVT prophylaxis Status post double vessel coronary artery bypass CABG (2019) History of cystoscopy (Chronic) History of colonoscopy with polypectomy (Chronic) History of malignant melanoma of skin (Chronic) Back, eyelid History of basal cell carcinoma (BCC) excision (Chronic) History of hernia repair (Chronic) History of eye surgery (Chronic) Hypothyroidism (Chronic) BPH (benign prostatic hyperplasia) (Chronic) Coronary atherosclerosis of [place] coronary artery (Chronic) CABG (2019) + stents (MARY to prox Lcx, MARY x2 to mid LAD- 2018) Asthma (Chronic) COPD (chronic obstructive pulmonary disease) (Chronic) Medical History (Updated 03/07/25 @ 20:03 by Bhupinder Bangura DO) History of Graves' disease History of pulmonary embolism 2010, AC since discontinued Abdominal pain Ileus Post-ERCP acute pancreatitis Acute pancreatitis High serum chloride Leukocytosis Afib post-op CABG, no known recurrences per pt Hypokalemia Clostridium difficile carrier Surgical History (Updated 04/10/24 @ 00:08 by Alicia Brandon) History of vasectomy History of thyroidectomy, total H/O rotator cuff surgery History of appendectomy History of cardiac cath CABG (2018) + stents (MARY to prox Lcx, MARY x2 to mid LAD- 2018) History of cholecystectomy Lap cholecystectomy, open repair of umbilical hernia (12/09/2020): Grade 2 view, MAC #3, ETT 7.5 at [facility] Family History Father Cancer Prostate and bladder Mother Stroke Breast cancer Social History Smoking Status: Never smoker Tobacco Type: Cigarettes Age Quit Using Tobacco: 27; Second Hand Exposure: Yes (faher smoked); Do You Dip or Chew Tobacco: No; Hx Alcohol Use: No Hx Substance Use: No Preferred Language: Croatian Communication Ability: Effective M48/M60 Tank Driver Required: No Beliefs That Will Affect Care: None marital status: Current Living Situation: Spouse current occupational status: retired current occupation: Retired Feels Safe at Home: Yes Assistive Devices: Cane and Glasses Allergies Allergies Allergy/AdvReac Type Severity Reaction Status Date / Time Beta-Blockers AdvReac Mild History Verified 03/08/24 18:40 (Beta-Adrenergic Bloc intolerance as per records codeine AdvReac Mild N/V Verified 03/08/24 18:40 Home Meds Home Medications Medication Instructions Recorded Confirmed sertraline 50 mg tablet (Zoloft) 50 mg PO QAM 10/31/18 03/31/24 tamsulosin 0.4 mg capsule (Flomax) 0.4 mg PO HS 10/31/18 03/31/24 albuterol sulfate 90 mcg/actuation 2 puff inhalation Q6H PRN 07/12/19 03/31/24 aerosol inhaler Shortness Of Breath atorvastatin 80 mg tablet 80 mg PO Q OTHER DAY 12/06/20 03/31/24 cholecalciferol (vitamin D3) 25 25 mcg PO 3XWK 12/06/20 03/31/24 mcg (1,000 unit) tablet (Vitamin D3) famotidine 20 mg tablet (Pepcid) 20 mg PO BID 12/06/20 03/31/24 losartan 100 mg tablet 100 mg PO QAM 12/06/20 03/31/24 aspirin 81 mg tablet,delayed 81 mg PO QPM 01/13/21 03/31/24 release Lactobacillus acidophilus 10 10,000 mmu cells PO DAILY 05/26/22 03/31/24 billion cell capsule (Probiotic) ezetimibe 10 mg tablet 10 mg PO QAM 05/26/22 03/31/24 ipratropium 0.5 mg-albuterol 3 mg 3 ml inhalation Q12H Shortness Of 05/26/22 03/31/24 (2.5 mg base)/3 mL nebulization Breath Or Wheezing soln montelukast 10 mg tablet 10 mg PO HS 05/26/22 03/31/24 spironolactone 25 mg tablet 25 mg PO QAM 05/26/22 03/31/24 acetaminophen 500 mg tablet 500 mg PO Q4H PRN Pain 11/24/23 03/31/24 dextran 70-hypromellose 1 applic OPB UD PRN Eye Irritation 11/24/23 03/31/24 fluorouracil 0.5 % topical cream 1 applic topical HS 11/24/23 03/31/24 furosemide 20 mg tablet 20 mg PO 3XWK 11/24/23 03/31/24 ipratropium bromide 42 mcg (0.06 1 spray intranasal HS 11/24/23 03/31/24 %) nasal spray levothyroxine 125 mcg tablet 125 mcg PO DAILYBB 11/24/23 03/31/24 prednisolone acetate 1 % eye See Rx Instructions .Route .COMPLEX 11/24/23 03/31/24 drops,suspension psyllium 1 tbsp PO DAILY 11/24/23 03/31/24 triamcinolone acetonide 55 mcg 1 spray intranasal DAILY Congestion 11/24/23 03/31/24 nasal spray aerosol (Nasacort Allergy) budesonide 0.5 mg/2 mL suspension 0.5 mg inhalation Q12H 11/25/23 03/31/24 for nebulization fluticasone fur. 200 mcg-umeclid 1 inh inhalation DAILY 11/25/23 03/31/24 62.5 mcg-vilant 25 mcg inhalat.powder (Trelegy Ellipta) verapamil 120 mg tablet,extended 120 mg PO QAM 11/25/23 03/31/24 release dupilumab 300 mg/2 mL subcutaneous 300 mg subcut UD 03/08/24 03/31/24 pen injector (Dupixent) loratadine 10 mg tablet (Claritin) 10 mg PO DAILY 03/08/24 03/31/24 prednisone 5 mg tablet 5 mg PO DAILY 03/08/24 03/31/24 azithromycin 500 mg tablet 500 mg PO DIRECTED 03/31/24 03/31/24 Previous Rx's Medication Instructions Recorded benzonatate 100 mg capsule 200 mg (2 x 100 mg) PO TID #90 caps 03/10/24 hydrocodone-homatropine 5 mg-1.5 5 ml PO Q6H PRN severe cough #120 03/10/24 mg/5 mL oral solution (Hydromet) mL Results & Data (ED) Vital Signs Vital Signs - 24 hr 03/07/25 15:53 03/07/25 17:31 03/07/25 17:56 Temperature 36.1 C L Temperature Source Temporal Artery Scan Pulse Rate 73 79 Pulse Rate [Right Finger] 85 Respiratory Rate 19 18 Respiratory Effort / Characteristics Non-Labored Spontaneous Non-Labored Spontaneous Respiratory Depth Normal Normal Blood Pressure 125/62 Blood Pressure [Right Arm] 153/82 H Blood Pressure Mean 83 Blood Pressure Mean [Right Arm] 105 Pulse Oximetry 96 96 Oxygen Delivery Method Room Air Room Air Sepsis Recent Fever Within 48 Hours No Sepsis New/Unexplained Change in Mental Status N/A Sepsis Action Taken by Nursing No Action Required Laboratory Data 03/07/25 16:37 03/07/25 16:37 Lab Results 03/07/25 Range/Units 16:37 WBC 13.23 H (4.8-10.8) K/ul RBC 4.76 (4.70-6.10) M/uL Hgb 14.6 (14.0-18.0) g/dl Hct 42.1 (42.0-52.0) % MCV 88.4 (80.0-100.0) fL MCH 30.7 (25.0-34.0) pg MCHC 34.7 (32.0-36.0) g/dL RDW Std Deviation 44.6 (36.4-46.3) fL RDW Coeff of Valentino 13.7 (11.5-14.5) % Plt Count 197 (130-400) K/uL MPV 10.9 (9.4-12.4) fL Immature Gran % (Auto) 1.4 % Neut % (Auto) 78.1 % Lymph % (Auto) 11.2 % [place] % (Auto) 7.4 % Eos % (Auto) 1.3 % Baso % (Auto) 0.6 % Neut # (Auto) 10.33 H (1.40-6.50) K/uL Lymph # (Auto) 1.48 (1.20-3.40) K/uL [place] # (Auto) 0.98 H (0.11-0.59) K/uL Eos # (Auto) 0.17 (0.00-0.50) K/uL Baso # (Auto) 0.08 (0.00-0.20) K/uL Immature Gran # (Auto) 0.19 (0.01-0.20) K/uL Sodium 136 (136-145) mmol/L Potassium 3.9 (3.5-5.1) mmol/L Chloride 107 (98-107) mmol/L Carbon Dioxide 20 L (21-32) mmol/L Anion Gap 9 (3-11) BUN 23 (6-23) mg/dl Creatinine 1.34 (0.6-1.4) mg/dl Est Cr Clr Drug Dosing Not Reportable eGFR 52.89 BUN/Creatinine Ratio 17.2 (10-20) Glucose 89 (70-99(Fasting)) mg/dl Calcium 9.3 (8.6-10.3) mg/dl Total Bilirubin 0.9 (0.2-1.0) mg/dl AST 17 (13-39) U/L ALT 16 (7-52) U/L Alkaline Phosphatase 70 (34-104) U/L Total Protein 6.4 (6.0-8.3) gm/dl Albumin 4.0 (3.4-5.0) gm/dl Globulin 2.4 L (2.5-4.0) gm/dl Albumin/Globulin Ratio 1.7 (0.9-2) Administered Medications Discontinued Medications Ketorolac Tromethamine (Ketorolac Tromethamine 15 Mg/Ml Vial) 10 mg IV NOW ONE Stop: 03/07/25 16:23 Last Admin: 03/07/25 17:29 Dose: 10 mg Documented By: CTK Morphine Sulfate (Morphine Sulfate 4 Mg/Ml 1 Ml Carp\Vial) 3 mg IV NOW STA Stop: 03/07/25 16:48 Last Admin: 03/07/25 17:28 Dose: 3 mg Documented By: CTK Ondansetron HCl (Ondansetron Inj 2 Mg/Ml 2 Ml Vial) 4 mg IV NOW STA Stop: 03/07/25 16:48 Last Admin: 03/07/25 17:25 Dose: 4 mg Documented By: CTK Imaging Data Radiologist's Impression: Cervical Spine CT 03/07/25 16:22 CT cervical spine without IV contrast History: Trauma Comparison: None Technique: Using multidetector thin collimation helical acquisition technique, axial, coronal and sagittal CT images through the cervical spine were obtained without intravenous contrast. Dose reduction techniques were achieved by using automatic exposure control and/or adjustment of mA and/or kV according to patient size and/or use of iterative reconstruction technique. Findings: The cervical vertebrae are normally aligned. Normal cervical lordosis. No acute fracture or subluxation. No prevertebral edema. There is no disc height narrowing at any level. Multilevel marginal osteophytes of the vertebral bodies. Degenerative facet changes. No abnormality of the paraspinous soft tissues. Impression: No acute fracture or traumatic subluxation. Electronically signed by Chase Guerin 03-07-2025 5:31 PM Chest X-Ray 03/07/25 16:22 Technique: 2 frontal views of the chest were obtained Findings: There are no confluent pulmonary infiltrates. The heart size is within normal limits. No pleural effusion or pneumothorax is seen. There is no definite pulmonary nodule. No fracture is noted. Sternal wires are present Impression: No active disease Electronically signed by Kyle Osborn 03-07-2025 5:31 PM Femur X-Ray 03/07/25 16:22 Clinical History: Pain after fall 4 views of the left femur are submitted for review. Findings: No clear acute fracture is identified. There is a bone fragment adjacent to the greater trochanter of the left femur that could be due to chronic heterotopic ossification No subluxation or dislocation is seen. There is mild left hip osteoarthritis and there is mild joint space narrowing in the medial compartment of the left knee. No other osseous abnormality is identified. There are radiotherapy implant seeds within the prostate. Vascular calcifications are present. There are surgical clips in the medial aspect of the proximal left calf Impression: 1. No definite fracture 2. Mild osteoarthritis Electronically signed by Kyel Osborn 03-07-2025 5:[address] 03/07/25 16:22 Clinical History: Fall Technique: Axial computed tomography images were obtained of the brain without intravenous contrast. Findings: There is mild cerebral atrophy, within expected limits for the patient's age. Areas of decreased attenuation are seen within the periventricular white matter, likely representing chronic small vessel ischemic disease. There is no definite sign of acute or old infarction. No intracranial hemorrhage is evident. No definite mass lesion is seen on this noncontrast examination. There is no midline shift or other form of herniation. No hydrocephalus is seen. No fracture is identified. There is sphenoid sinus mucosal thickening and fluid. The mastoid air cells appear clear. Impression: 1. 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 Sphenoid sinusitis Electronically signed by Kyle Osborn 03-07-2025 5:19 PM Pelvis X-Ray 03/07/25 16:22 Clinical History: Injury One view of the pelvis is submitted for review. Findings: No fracture or dislocation is seen. There is lumbar scoliosis and degenerative disc disease. No other osseous abnormality is identified. There are radiotherapy implant seeds within the prostate Impression: No definite pelvic fracture Electronically signed by Kyle Osborn 03-07-2025 5:34 PM Shoulder X-Ray 03/07/25 16:22 Clinical History: Pain after fall 3 views of the left shoulder are submitted for review. Findings: No fracture or dislocation is seen. There is mild acromioclavicular and glenohumeral osteoarthritis. There is a diminished subacromial space, which could be due to a rotator cuff tear. No other osseous abnormality is identified. There are no radiopaque foreign bodies. Impression: 1. Mild osteoarthritis 2. Possible rotator cuff tear Electronically signed by Kyle Osborn 03-07-2025 5:[address] 03/07/25 18:05 Clinical history: Pain after fall Technique: Axial computed tomography images were obtained of the left hip without intravenous contrast. Sagittal and coronal reconstructions were obtained Findings: There are acute slightly displaced fractures of the left superior and inferior pubic rami and the left pubic symphysis. No subluxation or dislocation is seen. There is moderate to severe left hip osteoarthritis. There are sclerotic foci in the left sacrum and left ilium, likely benign bone islands The visualized musculature appears unremarkable. No soft tissue mass or fluid collection is seen. There are radiotherapy implant seeds within the prostate Impression: 1. Acute fractures of the left pubic rami and left pubic symphysis 2. Left hip osteoarthritis ACT 112: Positive. There are findings on this exam that require communication between the performing entity and the patient following Patient Test Result Information Act ([place] ACT 112) guidelines. Electronically signed by Kyle Osborn 03-07-2025 6:59 PM Discharge Plan Visit Data Chief Complaint: Fall Stated Complaint: BAD FALL ED Provider: Bhupinder Bangura Discharge Problem: Closed pelvic fracture, Fall, Acute hip pain Condition: Fair Forms Stand Alone Forms: My eCert Prescriptions Prescriptions: No Action tamsulosin [Flomax] 0.4 mg capsule 0.4 mg PO HS sertraline [Zoloft] 50 mg Tablet 50 mg PO QAM albuterol sulfate 90 mcg/actuation Hfa Aerosol Inhaler 2 puff INHALATION Q6H PRN (Reason: Shortness Of Breath) famotidine [Pepcid] 20 mg tablet 20 mg PO BID losartan 100 mg tablet 100 mg PO QAM atorvastatin 80 mg Tablet 80 mg PO Q OTHER DAY cholecalciferol (vitamin D3) [Vitamin D3] 25 mcg (1,000 unit) Tablet 25 mcg PO 3XWK Rx Instructions: TAKE THIS MED ON TUE/TUE/TUE ipratropium-albuterol 0.5 mg-3 mg(2.5 mg base)/3 mL solution for nebulization 3 ml INHALATION Q12H montelukast 10 mg tablet 10 mg PO HS spironolactone 25 mg tablet 25 mg PO QAM ezetimibe 10 mg tablet 10 mg PO QAM Probiotic 10 billion cell Capsule 10,000 mmu cells PO DAILY aspirin 81 mg Tablet,Delayed Release (Dr/Ec) 81 mg PO QPM furosemide 20 mg Tablet 20 mg PO 3XWK Rx Instructions: take this medication once daily on Mondays/Wednesdays/Fridays acetaminophen 500 mg Tablet 500 mg PO Q4H MDD 3000mg PRN (Reason: Pain) dextran 70-hypromellose solution 1 applic OPB UD PRN (Reason: Eye Irritation) fluorouracil 0.5 % Cream 1 applic TOPICAL HS Rx Instructions: use 2-3 nights / week ipratropium bromide 42 mcg (0.06 %) [place],Non-Aerosol 1 spray INTRANASAL HS Rx Instructions: administer into each nostril levothyroxine 125 mcg tablet 125 mcg PO DAILYBB psyllium Powder 1 tbsp PO DAILY Rx Instructions: mix into at least 8 oz of water or juice before administering triamcinolone acetonide [Nasacort Allergy] 55 mcg Aerosol,[place] 1 spray INTRANASAL DAILY prednisolone acetate 1 % Drops,Suspension See Rx Instructions .ROUTE .COMPLEX Rx Instructions: place 5 drops in 8 oz of saline nasal solution ( disatilled water and salt ). Use steriod/salt/water irrigations twice per day to flush nasal/sinus cavity. NOT for use in eye. Trelegy Ellipta 200-62.5-25 mcg blister with device 1 inh INHALATION DAILY verapamil 120 mg tablet extended release 120 mg PO QAM budesonide 0.5 mg/2 mL suspension for nebulization 0.5 mg inhalation Q12H prednisone 5 mg tablet 5 mg PO DAILY loratadine [Claritin] 10 mg Tablet 10 mg PO DAILY Dupixent Pen 300 mg/2 mL pen injector 300 mg SUBCUT UD Rx Instructions: Every 14 days benzonatate 100 mg Capsule 200 mg PO TID Qty: 90 0RF hydrocodone-homatropine [Hydromet] 5-1.5 mg/5 mL Syrup 5 ml PO Q6H PRN (Reason: severe cough) Qty: 120 0RF azithromycin 500 mg tablet 500 mg PO DIRECTED Rx Instructions: 3 times weekly Referrals Referrals: Donn Clarke MD [Primary Care Provider] - Discharge Problem: Closed pelvic fracture Qualifiers: Encounter type: initial encounter Pelvic bone location: unspecified part of pelvis Fall Qualifiers: Encounter type: initial encounter Qualified Code(s): W19.XXXA - Unspecified fall, initial encounter Acute hip pain Qualifiers: Laterality: left Qualified Code(s): M25.552 - Pain in left hip
[2025-03-07 16:56] LABS: Hematocrit (blood only) 42.1 % (42.0-52.0); Hemoglobin 14.6 g/dl (14.0-18.0); Immature Granulocytes # (auto) 0.19 K/uL (0.01-0.20); Immature Granulocytes % (auto) 1.4 %; Mean Corpuscular Hemoglobin 30.7 pg (25.0-34.0); Mean Corpuscular Volume 88.4 fL (80.0-100.0); Platelet Count 197 K/uL (130-400); RDW Standard Deviation 44.6 fL (36.4-46.3); Red Blood Count 4.76 M/uL (4.70-6.10); White Blood Count 13.23 K/ul (4.8-10.8)
[2025-03-07 17:15] LABS: Alanine Aminotransferase 16 U/L (7-52); Albumin Globulin Ratio 1.7 (0.9-2); Alkaline Phosphatase 70 U/L (34-104); Anion Gap 9 (3-11); Bilirubin,Total 0.9 mg/dl (0.2-1.0); Blood Urea Nitrogen 23 mg/dl (6-23); Calcium 9.3 mg/dl (8.6-10.3); Carbon Dioxide 20 mmol/L (21-32); Chloride 107 mmol/L (98-107); Globulin 2.4 gm/dl (2.5-4.0); Glucose 89 mg/dl (70-99(Fasting)); Potassium 3.9 mmol/L (3.5-5.1); Sodium 136 mmol/L (136-145); Total Protein 6.4 gm/dl (6.0-8.3)
--- NOTE | 2025-03-07 17:20 | CT Scan Report ---
Clinical History: Fall Technique: Axial computed tomography images were obtained of the brain without intravenous contrast. Findings: There is mild cerebral atrophy, within expected limits for the patient's age. Areas of decreased attenuation are seen within the periventricular white matter, likely representing chronic small vessel ischemic disease. There is no definite sign of acute or old infarction. No intracranial hemorrhage is evident. No definite mass lesion is seen on this noncontrast examination. There is no midline shift or other form of herniation. No hydrocephalus is seen. No fracture is identified. There is sphenoid sinus mucosal thickening and fluid. The mastoid air cells appear clear. Impression: 1. 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 Sphenoid sinusitis Electronically signed by Kyle Osborn 03-07-2025 5:19 PM
[2025-03-07] MEDS: ONDANSETRON INJ 2 MG/ML 2 ML VIAL IV STA (17:25)
[2025-03-07] MEDS: MoRPHine SULFATE 4 MG/ML 1 ML CARP\\VIAL IV STA ×2 (17:28→20:40)
[2025-03-07] MEDS: KETOROLAC TROMETHAMINE 15 MG/ML VIAL IV ONE (17:29)
--- NOTE | 2025-03-07 17:31 | XRay Report ---
Technique: 2 frontal views of the chest were obtained Findings: There are no confluent pulmonary infiltrates. The heart size is within normal limits. No pleural effusion or pneumothorax is seen. There is no definite pulmonary nodule. No fracture is noted. Sternal wires are present Impression: No active disease Electronically signed by Kyle Osborn 03-07-2025 5:31 PM
--- NOTE | 2025-03-07 17:32 | CT Scan Report ---
CT cervical spine without IV contrast History: Trauma Comparison: None Technique: Using multidetector thin collimation helical acquisition technique, axial, coronal and sagittal CT images through the cervical spine were obtained without intravenous contrast. Dose reduction techniques were achieved by using automatic exposure control and/or adjustment of mA and/or kV according to patient size and/or use of iterative reconstruction technique. Findings: The cervical vertebrae are normally aligned. Normal cervical lordosis. No acute fracture or subluxation. No prevertebral edema. There is no disc height narrowing at any level. Multilevel marginal osteophytes of the vertebral bodies. Degenerative facet changes. No abnormality of the paraspinous soft tissues. Impression: No acute fracture or traumatic subluxation. Electronically signed by Chase Guerin 03-07-2025 5:31 PM
--- NOTE | 2025-03-07 17:32 | XRay Report ---
Clinical History: Pain after fall 3 views of the left shoulder are submitted for review. Findings: No fracture or dislocation is seen. There is mild acromioclavicular and glenohumeral osteoarthritis. There is a diminished subacromial space, which could be due to a rotator cuff tear. No other osseous abnormality is identified. There are no radiopaque foreign bodies. Impression: 1. Mild osteoarthritis 2. Possible rotator cuff tear Electronically signed by Kyle Osborn 03-07-2025 5:32 PM
--- NOTE | 2025-03-07 17:34 | XRay Report ---
Clinical History: Pain after fall 4 views of the left femur are submitted for review. Findings: No clear acute fracture is identified. There is a bone fragment adjacent to the greater trochanter of the left femur that could be due to chronic heterotopic ossification No subluxation or dislocation is seen. There is mild left hip osteoarthritis and there is mild joint space narrowing in the medial compartment of the left knee. No other osseous abnormality is identified. There are radiotherapy implant seeds within the prostate. Vascular calcifications are present. There are surgical clips in the medial aspect of the proximal left calf Impression: 1. No definite fracture 2. Mild osteoarthritis Electronically signed by Kyle Osborn 03-07-2025 5:34 PM
[2025-03-07 17:35] VITALS: RESP 18
--- NOTE | 2025-03-07 17:35 | XRay Report ---
Clinical History: Injury One view of the pelvis is submitted for review. Findings: No fracture or dislocation is seen. There is lumbar scoliosis and degenerative disc disease. No other osseous abnormality is identified. There are radiotherapy implant seeds within the prostate Impression: No definite pelvic fracture Electronically signed by Kyle Osborn 03-07-2025 5:34 PM
--- NOTE | 2025-03-07 18:59 | CT Scan Report ---
Clinical history: Pain after fall Technique: Axial computed tomography images were obtained of the left hip without intravenous contrast. Sagittal and coronal reconstructions were obtained Findings: There are acute slightly displaced fractures of the left superior and inferior pubic rami and the left pubic symphysis. No subluxation or dislocation is seen. There is moderate to severe left hip osteoarthritis. There are sclerotic foci in the left sacrum and left ilium, likely benign bone islands The visualized musculature appears unremarkable. No soft tissue mass or fluid collection is seen. There are radiotherapy implant seeds within the prostate Impression: 1. Acute fractures of the left pubic rami and left pubic symphysis 2. Left hip osteoarthritis ACT 112: Positive. There are findings on this exam that require communication between the performing entity and the patient following Patient Test Result Information Act ([place] ACT 112) guidelines. Electronically signed by Kyle Osborn 03-07-2025 6:59 PM
[2025-03-07] MEDS ORDERED: ACETAMINOPHEN 325 MG TAB PO PRN (19:29)
--- NOTE | 2025-03-07 19:50 | History & Physical Report ---
Date of Service March 07, 2025 Assessment & Plan (1) Closed pelvic fracture: Plan: Assessment and plan below following discussion of case with ED provider and reviewing patient history/pertinent normal/abnormal diagnostic test results. 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 hx bilateral PE status post anti-coagulation Chronic bronchiectasis on azithromycin suppression Rx hx prostate cancer status post radiation/hormone therapy, hx MGUS; patient follows with [facility] hypothyroidism, euthyroid as of recent outpatient TSH past tobacco abuse OBS Admit to [facility] consult Re: Traumatic pelvic fracture, possible rotator cuff tear left Hold aspirin for now given recent trauma, resume if H&H stable PT OT eval DVT prophylaxis SCDs Re: Recent trauma Full code Patient requests for to be given updates regarding care. Ms. Angela Crockett, contact #[phone]. Text document was generated using [employer] voice recognition software. It may contain grammatical or spelling errors. Kindly contact undersigned for clarification of any documentation item in question. History of Present Illness Chief Complaint: Fall Primary Care Provider: Donn Clarke MD History obtained from patient, family, and records. Medical history significant for CAD status post CABG/stent, PAF, valvular heart disease (mild MR/TR, TTE 2023), hypertension, hyperlipidemia, history of PE status post anti-coagulation, asthma/bronchiectasis on azithromycin suppression Rx, BPH/prostate cancer status post radiation, MGUS, skin cancer, hy pothyroidism, history of pancreatitis, past tobacco abuse Last confinement 2023 for paroxysmal dyspnea/anginal equivalent Patient transferred to [facility] evaluation for cardiac workup. Nonobstructive CAD with patent grafts on diagnostic cardiac catheterization. Patient missed a step at home today leading fall Patient landed on his left side. Achy left shoulder pain and hip pain. Denies head trauma. Denies chest pain, SOB. 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 Allergies Allergy/AdvReac Type Severity Reaction Status Date / Time Beta-Blockers AdvReac Mild History Verified 03/08/24 18:40 (Beta-Adrenergic Bloc intolerance as per records codeine AdvReac Mild N/V Verified 03/08/24 18:40 Home Medications Medication Instructions Recorded Confirmed Type sertraline 50 mg tablet (Zoloft) 50 mg PO QAM 10/31/18 03/07/25 History tamsulosin 0.4 mg capsule (Flomax) 0.4 mg PO HS 10/31/18 03/07/25 History albuterol sulfate 90 mcg/actuation 2 puff inhalation Q6H PRN 07/12/19 03/07/25 History aerosol inhaler Shortness Of Breath atorvastatin 80 mg tablet 80 mg PO DAILY 12/06/20 03/07/25 History famotidine 20 mg tablet (Pepcid) 20 mg PO BID 12/06/20 03/07/25 History aspirin 81 mg tablet,delayed 81 mg PO QPM 01/13/21 03/07/25 History release Lactobacillus acidophilus 10 10,000 mmu cells PO DAILY 05/26/22 03/07/25 History billion cell capsule (Probiotic) ezetimibe 10 mg tablet 10 mg PO QAM 05/26/22 03/07/25 History ipratropium 0.5 mg-albuterol 3 mg 3 ml inhalation Q12H Shortness Of 05/26/22 03/07/25 History (2.5 mg base)/3 mL nebulization Breath Or Wheezing soln montelukast 10 mg tablet 10 mg PO HS 05/26/22 03/07/25 History spironolactone 25 mg tablet 25 mg PO QAM 05/26/22 03/07/25 History acetaminophen 500 mg tablet 500 mg PO Q4H PRN Pain 11/24/23 03/07/25 History dextran 70-hypromellose 1 applic OPB UD PRN Eye Irritation 11/24/23 03/07/25 History fluorouracil 0.5 % topical cream 1 applic topical HS 11/24/23 03/07/25 History ipratropium bromide 42 mcg (0.06 1 spray intranasal HS 11/24/23 03/07/25 History %) nasal spray levothyroxine 125 mcg tablet 125 mcg PO DAILYBB 11/24/23 03/07/25 History fluticasone fur. 200 mcg-umeclid 1 inh inhalation DAILY 11/25/23 03/07/25 History 62.5 mcg-vilant 25 mcg inhalat.powder (Trelegy Ellipta) verapamil 120 mg tablet,extended 120 mg PO QAM 11/25/23 03/07/25 History release dupilumab 300 mg/2 mL subcutaneous 300 mg subcut UD 03/08/24 03/07/25 History pen injector (Dupixent) azithromycin 500 mg tablet 500 mg PO DIRECTED 03/31/24 03/07/25 History Past Med/Surg History Problem List (Updated 03/08/25 @ 08:37 by Florin Velazco PA-C) Left shoulder pain Fracture of left inferior pubic ramus Acute hip pain (Acute) Fall (Acute) Closed pelvic fracture (Acute) COVID-19 Anginal equivalent Paroxysmal dyspnea Atypical chest pain CAD (coronary artery disease) (Acute) Chest pain (Acute) Dyspnea on minimal exertion Post-COVID chronic cough Multifocal pneumonia Bronchiectasis Paroxysmal atrial fibrillation Dyspnea Leukocytosis (Acute) Exertional dyspnea (Acute) Pneumonia (Acute) Precordial chest pain (Acute) Bronchiectasis with (acute) exacerbation COPD exacerbation (Acute) Hypoxia (Acute) Pneumonia (Acute) Mild persistent asthma Abnormal CT scan, chest GERD (gastroesophageal reflux disease) Retrosternal chest pain (Acute) Hyperbilirubinemia Depression CAD (coronary artery disease) CABG (2018) + stents (MARY to prox Lcx, MARY x2 to mid LAD- 2018) DVT prophylaxis Cholelithiasis Angina pectoris, unstable (Acute) Chest pain Hypertensive urgency Acute cholecystitis Umbilical hernia Diffuse abdominal pain (Acute) Acute cholecystitis (Acute) Vomiting (Acute) Tachycardia (Acute) Fever (Acute) Encounter for pre-operative examination Preoperative cardiovascular examination Troponin I above reference range Elevated liver function tests Encounter for pre-operative examination Cholangitis Elevated troponin Encounter for pre-operative examination HTN (hypertension) DVT prophylaxis Status post double vessel coronary artery bypass CABG (2019) History of cystoscopy (Chronic) History of colonoscopy with polypectomy (Chronic) History of malignant melanoma of skin (Chronic) Back, eyelid History of basal cell carcinoma (BCC) excision (Chronic) History of hernia repair (Chronic) History of eye surgery (Chronic) Hypothyroidism (Chronic) BPH (benign prostatic hyperplasia) (Chronic) Coronary atherosclerosis of semin[place] coronary artery (Chronic) CABG (2018) + stents (MARY to prox Lcx, MARY x2 to mid LAD- 2018) Asthma (Chronic) COPD (chronic obstructive pulmonary disease) (Chronic) Medical History (Updated 03/08/25 @ 08:37 by Florin Velazco PA-C) History of Graves' disease History of pulmonary embolism 2010, AC since discontinued Abdominal pain Ileus Post-ERCP acute pancreatitis Acute pancreatitis High serum chloride Leukocytosis Afib post-op CABG, no known recurrences per pt Hypokalemia Clostridium difficile carrier Surgical History (Updated 04/10/24 @ 00:08 by Alicia Brandon) History of vasectomy History of thyroidectomy, total H/O rotator cuff surgery History of appendectomy History of cardiac cath CABG (2018) + stents (MARY to prox Lcx, MARY x2 to mid LAD- 2018) History of cholecystectomy Lap cholecystectomy, open repair of umbilical hernia (12/09/2020): Grade 2 view, MAC #3, ETT 7.5 at [facility] Family History Father Cancer Prostate and bladder Mother Stroke Breast cancer Social History Smoking Status: Former smoker Tobacco Type: Cigarettes Age Quit Using Tobacco: 27; Second Hand Exposure: No; Do You Dip or Chew Tobacco: No; Hx Alcohol Use: Yes Alcohol type: beer and hard liquor Alcohol Intake Frequency Comment: 1-2 drinks per day Hx Substance Use: No Preferred Language: Malay Communication Ability: Effective Supervisor [employer] Required: No Beliefs That Will Affect Care: None marital status: Current Living Situation: Spouse current occupational status: retired current occupation: Retired Other Information That Helps Us Care for You: No Feels Safe at Home: Yes Safety Concerns: Feels Safe At This Time Assistive Devices: Glasses and Hearing Aid - Bilateral Assistive Devices Comment: reading glasses Review of Systems Review of Systems: As per HPI, all other systems reviewed and negative Physical Exam Physical Exam: GENERAL: pleasant, no respiratory distress SKIN: Normal color, warm HEENT: Partial alopecia, pink palpebral conjunctivae, no ptosis, dry buccal mucosa NECK : Supple, no tenderness CHEST : Decreased breath sounds, no tenderness HEART : RRR, no obvious murmurs ABDOMEN: Some distention, minimal suprapubic tenderness EXTREMITIES : Left shoulder tenderness, no LE swelling/tenderness, no other conspicuous deformities noted NEUROLOGIC : Coherent, no facial asymmetry, no other gross focality Results & Data Results & Data Vital Signs (Past 12 Hours) Vital Signs Temp Pulse Pulse Resp BP BP Pulse Ox 03/07/25 17:56 79 03/07/25 17:31 85 18 153/82 H 96 03/07/25 15:53 36.1 C L 73 19 125/62 96 O2 Del Method 03/07/25 17:56 03/07/25 17:31 Room Air 03/07/25 15:53 Room Air Laboratory Results Laboratory Results WBC 13.23 K/ul (4.8-10.8) H 03/07/25 16:37 RBC 4.76 M/uL (4.70-6.10) 03/07/25 16:37 Hgb 14.6 g/dl (14.0-18.0) 03/07/25 16:37 Hct 42.1 % (42.0-52.0) 03/07/25 16:37 MCV 88.4 fL (80.0-100.0) 03/07/25 16:37 MCH 30.7 pg (25.0-34.0) 03/07/25 16:37 MCHC 34.7 g/dL (32.0-36.0) 03/07/25 16:37 RDW Std Deviation 44.6 fL (36.4-46.3) 03/07/25 16:37 RDW Coeff of Valentino 13.7 % (11.5-14.5) 03/07/25 16:37 Plt Count 197 K/uL (130-400) 03/07/25 16:37 MPV 10.9 fL (9.4-12.4) 03/07/25 16:37 Immature Gran % (Auto) 1.4 % 03/07/25 16:37 Neut % (Auto) 78.1 % 03/07/25 16:37 Lymph % (Auto) 11.2 % 03/07/25 16:37 Bullock % (Auto) 7.4 % 03/07/25 16:37 Eos % (Auto) 1.3 % 03/07/25 16:37 Baso % (Auto) 0.6 % 03/07/25 16:37 Neut # (Auto) 10.33 K/uL (1.40-6.50) H 03/07/25 16:37 Lymph # (Auto) 1.48 K/uL (1.20-3.40) 03/07/25 16:37 Bullock # (Auto) 0.98 K/uL (0.11-0.59) H 03/07/25 16:37 Eos # (Auto) 0.17 K/uL (0.00-0.50) 03/07/25 16:37 Baso # (Auto) 0.08 K/uL (0.00-0.20) 03/07/25 16:37 Immature Gran # (Auto) 0.19 K/uL (0.01-0.20) 03/07/25 16:37 Sodium 136 mmol/L (136-145) 03/07/25 16:37 Potassium 3.9 mmol/L (3.5-5.1) 03/07/25 16:37 Chloride 107 mmol/L (98-107) 03/07/25 16:37 Carbon Dioxide 20 mmol/L (21-32) L 03/07/25 16:37 Anion Gap 9 (3-11) 03/07/25 16:37 BUN 23 mg/dl (6-23) 03/07/25 16:37 Creatinine 1.34 mg/dl (0.6-1.4) 03/07/25 16:37 Est Cr Clr Drug Dosing Not Reportable 03/07/25 16:37 eGFR 52.89 03/07/25 16:37 BUN/Creatinine Ratio 17.2 (10-20) 03/07/25 16:37 Glucose 89 mg/dl (70-99(Fasting)) 03/07/25 16:37 Calcium 9.3 mg/dl (8.6-10.3) 03/07/25 16:37 Total Bilirubin 0.9 mg/dl (0.2-1.0) 03/07/25 16:37 AST 17 U/L (13-39) 03/07/25 16:37 ALT 16 U/L (7-52) 03/07/25 16:37 Alkaline Phosphatase 70 U/L (34-104) 03/07/25 16:37 Total Protein 6.4 gm/dl (6.0-8.3) 03/07/25 16:37 Albumin 4.0 gm/dl (3.4-5.0) 03/07/25 16:37 Globulin 2.4 gm/dl (2.5-4.0) L 03/07/25 16:37 Albumin/Globulin Ratio 1.7 (0.9-2) 03/07/25 16:[address] 03/07/25 16:22 CT cervical spine without IV contrast History: Trauma Comparison: None Technique: Using multidetector thin collimation helical acquisition technique, axial, coronal and sagittal CT images through the cervical spine were obtained without intravenous contrast. Dose reduction techniques were achieved by using automatic exposure control and/or adjustment of mA and/or kV according to patient size and/or use of iterative reconstruction technique. Findings: The cervical vertebrae are normally aligned. Normal cervical lordosis. No acute fracture or subluxation. No prevertebral edema. There is no disc height narrowing at any level. Multilevel marginal osteophytes of the vertebral bodies. Degenerative facet changes. No abnormality of the paraspinous soft tissues. Impression: No acute fracture or traumatic subluxation. Electronically signed by Chase Guerin 03-07-2025 5:31 PM Chest X-Ray 03/07/25 16:22 Technique: 2 frontal views of the chest were obtained Findings: There are no confluent pulmonary infiltrates. The heart size is within normal limits. No pleural effusion or pneumothorax is seen. There is no definite pulmonary nodule. No fracture is noted. Sternal wires are present Impression: No active disease Electronically signed by Kyle Osborn 03-07-2025 5:31 PM Femur X-Ray 03/07/25 16:22 Clinical History: Pain after fall 4 views of the left femur are submitted for review. Findings: No clear acute fracture is identified. There is a bone fragment adjacent to the greater trochanter of the left femur that could be due to chronic heterotopic ossification No subluxation or dislocation is seen. There is mild left hip osteoarthritis and there is mild joint space narrowing in the medial compartment of the left knee. No other osseous abnormality is identified. There are radiotherapy implant seeds within the prostate. Vascular calcifications are present. There are surgical clips in the medial aspect of the proximal left calf Impression: 1. No definite fracture 2. Mild osteoarthritis Electronically signed by Kyle Osborn 03-07-2025 5:[address] 03/07/25 16:22 Clinical History: Fall Technique: Axial computed tomography images were obtained of the brain without intravenous contrast. Findings: There is mild cerebral atrophy, within expected limits for the patient's age. Areas of decreased attenuation are seen within the periventricular white matter, likely representing chronic small vessel ischemic disease. There is no definite sign of acute or old infarction. No intracranial hemorrhage is evident. No definite mass lesion is seen on this noncontrast examination. There is no midline shift or other form of herniation. No hydrocephalus is seen. No fracture is identified. There is sphenoid sinus mucosal thickening and fluid. The mastoid air cells appear clear. Impression: 1. 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 Sphenoid sinusitis Electronically signed by Kyle Osborn 03-07-2025 5:19 PM Pelvis X-Ray 03/07/25 16:22 Clinical History: Injury One view of the pelvis is submitted for review. Findings: No fracture or dislocation is seen. There is lumbar scoliosis and degenerative disc disease. No other osseous abnormality is identified. There are radiotherapy implant seeds within the prostate Impression: No definite pelvic fracture Electronically signed by Kyle Osborn 03-07-2025 5:34 PM Shoulder X-Ray 03/07/25 16:22 Clinical History: Pain after fall 3 views of the left shoulder are submitted for review. Findings: No fracture or dislocation is seen. There is mild acromioclavicular and glenohumeral osteoarthritis. There is a diminished subacromial space, which could be due to a rotator cuff tear. No other osseous abnormality is identified. There are no radiopaque foreign bodies. Impression: 1. Mild osteoarthritis 2. Possible rotator cuff tear Electronically signed by Kyle Osborn 03-07-2025 5:[address] 03/07/25 18:05 Clinical history: Pain after fall Technique: Axial computed tomography images were obtained of the left hip without intravenous contrast. Sagittal and coronal reconstructions were obtained Findings: There are acute slightly displaced fractures of the left superior and inferior pubic rami and the left pubic symphysis. No subluxation or dislocation is seen. There is moderate to severe left hip osteoarthritis. There are sclerotic foci in the left sacrum and left ilium, likely benign bone islands The visualized musculature appears unremarkable. No soft tissue mass or fluid collection is seen. There are radiotherapy implant seeds within the prostate Impression: 1. Acute fractures of the left pubic rami and left pubic symphysis 2. Left hip osteoarthritis ACT 112: Positive. There are findings on this exam that require communication between the performing entity and the patient following Patient Test Result Information Act ([place] ACT 112) guidelines. Electronically signed by Kyle Osborn 03-07-2025 6:59 PM (1) Closed pelvic fracture Encounter type: initial encounter Pelvic bone location: unspecified part of pelvis
[2025-03-07] MEDS: SODIUM CHLORIDE 0.9% 1,000 ML IV ONE (20:41)
[2025-03-07] MEDS ORDERED: PROMETHAZINE 6.25 MG/50.25 ML BAG IV PRN (21:41)
[2025-03-07] MEDS ORDERED: ARTIFICIAL TEARS OP PRN (21:50)
[2025-03-08] MEDS: MoRPHine SULFATE 4 MG/ML 1 ML CARP\\VIAL IV PRN (01:19)
[2025-03-08] MEDS: LEVOTHYROXINE SODIUM 125 MCG TABLET PO SCH (05:38)
[2025-03-08 07:21] LABS: Hematocrit (blood only) 40.1 % (42.0-52.0); Hemoglobin 13.3 g/dl (14.0-18.0); Immature Granulocytes # (auto) 0.10 K/uL (0.01-0.20); Immature Granulocytes % (auto) 1.2 %; Mean Corpuscular Hemoglobin 30.4 pg (25.0-34.0); Mean Corpuscular Volume 91.8 fL (80.0-100.0); Platelet Count 171 K/uL (130-400); RDW Standard Deviation 48.8 fL (36.4-46.3); Red Blood Count 4.37 M/uL (4.70-6.10); White Blood Count 8.35 K/ul (4.8-10.8)
[2025-03-08 07:45] LABS: Anion Gap 2.0 (3-11); Blood Urea Nitrogen 26.0 mg/dl (6-23); Calcium 8.5 mg/dl (8.6-10.3); Carbon Dioxide 27.0 mmol/L (21-32); Chloride 108.0 mmol/L (98-107); Creatinine Clr Calc Pharmacy 46.5 ml/min; Glucose 91.0 mg/dl (70-99(Fasting)); Potassium 4.5 mmol/L (3.5-5.1); Sodium 137.0 mmol/L (136-145)
--- NOTE | 2025-03-08 08:16 | Orthopedic Consultation ---
Date of Service March 08, 2025 Assessment & Plan (1) Fracture of left inferior pubic ramus: (2) Left shoulder pain: Plan * Case/imaging reviewed and discussed with Dr Hurst -Left pubic rami fracture * Recommend closed management of pubic rami fracture * Weight bearing status: WBAT * Daily treatment: Physical Therapy/ Occupational Therapy per protocol -Acute on chronic left shoulder pain * Suspect chronic underlying RTC tear * No acute intervention indicated * Weight bearing status: WBAT, no ROM restrictions * Consider cortisone injection outpatient if pain does not improve * Daily treatment: Physical Therapy/ Occupational Therapy per protocol * Pain control * Disposition: Home * Remainder care per primary team * Stable for discharge from ortho standpoint, plan for outpt follow-up approximately 1 month History of Present Illness Reason for Consultation: Left hip and shoulder pain Requesting Physician: . Attending Physician: Maxi Osborn MD . Patient is a 84y/o male with left hip and shoulder pain. PMH including CAD [facility] post CABG/stent, PAF, valvular heart disease (mild MR/TR, TTE 2023), hypertension, hyperlipidemia, history of PE status post anti-coagulation, asthma/bronchiectasis on azithromycin suppression Rx, BPH/prostate cancer status post radiation, MGUS, skin cancer, hypothyroidism, history of pancreatitis, past tobacco abuse. Presents to hospital with left hip and shoulder pain after a fall. Patient reports he was stepping down into his daughter's living room when he slipped and fell landing on his left side. Was able to ambulate with significant pain. Brought to ED for further evaluation. Current workup including x-ray left shoulder demonstrating high riding humerus but no fracture or dislocation, x-ray and CT left hip demonstrating pubic rami fracture. Admitted to hospital team for observation.. Orthopedics consulted for management recommendations. At time of exam patient lying comfortably in bed, no acute distress. Endorses pain of both the left shoulder and the left hip. Regarding left shoulder, has had ongoing chronic soreness and mild weakness for over a year, suspected rotator cuff injury, does have history of right rotator cuff repair but states the left side has never been bad enough to pursue intervention, currently with good motion of the shoulder, just soreness. Regarding left hip, mild pain at rest that increases with active motion or weightbearing. Denies tingling or numbness in the left leg. Has been using a cane for ambulation recently. Allergies Allergy/AdvReac Type Severity Reaction Status Date / Time Beta-Blockers AdvReac Mild History Verified 03/08/24 18:40 (Beta-Adrenergic Bloc intolerance as per records codeine AdvReac Mild N/V Verified 03/08/24 18:40 Home Medications Medication Instructions Recorded Confirmed Type sertraline 50 mg tablet (Zoloft) 50 mg PO QAM 10/31/18 03/07/25 History tamsulosin 0.4 mg capsule (Flomax) 0.4 mg PO HS 10/31/18 03/07/25 History albuterol sulfate 90 mcg/actuation 2 puff inhalation Q6H PRN 07/12/19 03/07/25 History aerosol inhaler Shortness Of Breath atorvastatin 80 mg tablet 80 mg PO DAILY 12/06/20 03/07/25 History famotidine 20 mg tablet (Pepcid) 20 mg PO BID 12/06/20 03/07/25 History aspirin 81 mg tablet,delayed 81 mg PO QPM 01/13/21 03/07/25 History release Lactobacillus acidophilus 10 10,000 mmu cells PO DAILY 05/26/22 03/07/25 History billion cell capsule (Probiotic) ezetimibe 10 mg tablet 10 mg PO QAM 05/26/22 03/07/25 History ipratropium 0.5 mg-albuterol 3 mg 3 ml inhalation Q12H Shortness Of 05/26/22 03/07/25 History (2.5 mg base)/3 mL nebulization Breath Or Wheezing soln montelukast 10 mg tablet 10 mg PO HS 05/26/22 03/07/25 History spironolactone 25 mg tablet 25 mg PO QAM 05/26/22 03/07/25 History acetaminophen 500 mg tablet 500 mg PO Q4H PRN Pain 11/24/23 03/07/25 History dextran 70-hypromellose 1 applic OPB UD PRN Eye Irritation 11/24/23 03/07/25 History fluorouracil 0.5 % topical cream 1 applic topical HS 11/24/23 03/07/25 History ipratropium bromide 42 mcg (0.06 1 spray intranasal HS 11/24/23 03/07/25 History %) nasal spray levothyroxine 125 mcg tablet 125 mcg PO DAILYBB 11/24/23 03/07/25 History fluticasone fur. 200 mcg-umeclid 1 inh inhalation DAILY 11/25/23 03/07/25 History 62.5 mcg-vilant 25 mcg inhalat.powder (Trelegy Ellipta) verapamil 120 mg tablet,extended 120 mg PO QAM 11/25/23 03/07/25 History release dupilumab 300 mg/2 mL subcutaneous 300 mg subcut UD 03/08/24 03/07/25 History pen injector (Dupixent) azithromycin 500 mg tablet 500 mg PO DIRECTED 03/31/24 03/07/25 History Past Med/Surg History Problem List (Updated 03/08/25 @ 08:37 by Florin Velazco PA-C) Left shoulder pain Fracture of left inferior pubic ramus Acute hip pain (Acute) Fall (Acute) Closed pelvic fracture (Acute) COVID-19 Anginal equivalent Paroxysmal dyspnea Atypical chest pain CAD (coronary artery disease) (Acute) Chest pain (Acute) Dyspnea on minimal exertion Post-COVID chronic cough Multifocal pneumonia Bronchiectasis Paroxysmal atrial fibrillation Dyspnea Leukocytosis (Acute) Exertional dyspnea (Acute) Pneumonia (Acute) Precordial chest pain (Acute) Bronchiectasis with (acute) exacerbation COPD exacerbation (Acute) Hypoxia (Acute) Pneumonia (Acute) Mild persistent asthma Abnormal CT scan, chest GERD (gastroesophageal reflux disease) Retrosternal chest pain (Acute) Hyperbilirubinemia Depression CAD (coronary artery disease) CABG (2018) + stents (MARY to prox Lcx, MARY x2 to mid LAD- 2018) DVT prophylaxis Cholelithiasis Angina pectoris, unstable (Acute) Chest pain Hypertensive urgency Acute cholecystitis Umbilical hernia Diffuse abdominal pain (Acute) Acute cholecystitis (Acute) Vomiting (Acute) Tachycardia (Acute) Fever (Acute) Encounter for pre-operative examination Preoperative cardiovascular examination Troponin I above reference range Elevated liver function tests Encounter for pre-operative examination Cholangitis Elevated troponin Encounter for pre-operative examination HTN (hypertension) DVT prophylaxis Status post double vessel coronary artery bypass CABG (2018) History of cystoscopy (Chronic) History of colonoscopy with polypectomy (Chronic) History of malignant melanoma of skin (Chronic) Back, eyelid History of basal cell carcinoma (BCC) excision (Chronic) History of hernia repair (Chronic) History of eye surgery (Chronic) Hypothyroidism (Chronic) BPH (benign prostatic hyperplasia) (Chronic) Coronary atherosclerosis of [place] coronary artery (Chronic) CABG (2019) + stents (MARY to prox Lcx, MARY x2 to mid LAD- 2019) Asthma (Chronic) COPD (chronic obstructive pulmonary disease) (Chronic) Medical History (Updated 03/08/25 @ 08:37 by Florin Velazco PA-C) History of Graves' disease History of pulmonary embolism 2010, AC since discontinued Abdominal pain Ileus Post-ERCP acute pancreatitis Acute pancreatitis High serum chloride Leukocytosis Afib post-op CABG, no known recurrences per pt Hypokalemia Clostridium difficile carrier Surgical History (Updated 04/10/24 @ 00:08 by Alicia Brandon) History of vasectomy History of thyroidectomy, total H/O rotator cuff surgery History of appendectomy History of cardiac cath CABG (2018) + stents (MARY to prox Lcx, MARY x2 to mid LAD- 2018) History of cholecystectomy Lap cholecystectomy, open repair of umbilical hernia (12/09/2020): Grade 2 view, MAC #3, ETT 7.5 at [facility] Family History Father Cancer Prostate and bladder Mother Stroke Breast cancer Social History Smoking Status: Former smoker Tobacco Type: Cigarettes Age Quit Using Tobacco: 27; Second Hand Exposure: No; Do You Dip or Chew Tobacco: No; Hx Alcohol Use: Yes Alcohol type: beer and hard liquor Alcohol Intake Frequency Comment: 1-2 drinks per day Hx Substance Use: No Preferred Language: Frisian Communication Ability: Effective Nursing Professor Required: No Beliefs That Will Affect Care: None marital status: Current Living Situation: Spouse current occupational status: retired current occupation: Retired Other Information That Helps Us Care for You: No Feels Safe at Home: Yes Safety Concerns: Feels Safe At This Time Assistive Devices: Glasses and Hearing Aid - Bilateral Assistive Devices Comment: reading glasses Review of Systems All systems reviewed & are unremarkable except as noted in HPI & below. Physical Exam . * General: Alert and oriented, no acute distress * Constitutional: well-developed, well-nourished. * Respiratory: Normal respiratory effort, no distress * Gastrointestinal: No tenderness to palpation, no rigidity or guarding. * Skin: No rash or lesion. * Neurologic: Grossly normal * Musculoskeletal: - Left shoulder: No obvious deformity or overlying skin changes to the left shoulder region. Mild TTP lateral deltoid and RTC tendon. Otherwise no specific tenderness of the upper arm, elbow, forearm, wrist/hand. AROM shoulder flexion and abduction intact, strength 5/5. AROM elbow, wrist, hand intact. Sensation intact radial/median/ulnar nerve distributions. Brisk capillary refill. - Hip: No obvious deformity or overlying skin changes to the left hip region. Mild TTP anterior hip left pubic region. Otherwise no specific tenderness of the thigh, knee, lower leg. Minimal pain with logroll, passive flexion or IR/ER. No pain with SI joint compression or distraction. Sensation intact plantar/dorsal foot. Brisk cap refill. Results & Data Results & Data Laboratory Results . Diagnostic Findings . Cervical Spine CT 03/07/25 16:22 CT cervical spine without IV contrast History: Trauma Comparison: None Technique: Using multidetector thin collimation helical acquisition technique, axial, coronal and sagittal CT images through the cervical spine were obtained without intravenous contrast. Dose reduction techniques were achieved by using automatic exposure control and/or adjustment of mA and/or kV according to patient size and/or use of iterative reconstruction technique. Findings: The cervical vertebrae are normally aligned. Normal cervical lordosis. No acute fracture or subluxation. No prevertebral edema. There is no disc height narrowing at any level. Multilevel marginal osteophytes of the vertebral bodies. Degenerative facet changes. No abnormality of the paraspinous soft tissues. Impression: No acute fracture or traumatic subluxation. Electronically signed by Chase Guerin 03-07-2025 5:31 PM Chest X-Ray 03/07/25 16:22 Technique: 2 frontal views of the chest were obtained Findings: There are no confluent pulmonary infiltrates. The heart size is within normal limits. No pleural effusion or pneumothorax is seen. There is no definite pulmonary nodule. No fracture is noted. Sternal wires are present Impression: No active disease Electronically signed by Kyle Osborn 03-07-2025 5:31 PM Femur X-Ray 03/07/25 16:22 Clinical History: Pain after fall 4 views of the left femur are submitted for review. Findings: No clear acute fracture is identified. There is a bone fragment adjacent to the greater trochanter of the left femur that could be due to chronic heterotopic ossification No subluxation or dislocation is seen. There is mild left hip osteoarthritis and there is mild joint space narrowing in the medial compartment of the left knee. No other osseous abnormality is identified. There are radiotherapy implant seeds within the prostate. Vascular calcifications are present. There are surgical clips in the medial aspect of the proximal left calf Impression: 1. No definite fracture 2. Mild osteoarthritis Electronically signed by Kyle Osborn 03-07-2025 5:[address] 03/07/25 16:22 Clinical History: Fall Technique: Axial computed tomography images were obtained of the brain without intravenous contrast. Findings: There is mild cerebral atrophy, within expected limits for the patient's age. Areas of decreased attenuation are seen within the periventricular white matter, likely representing chronic small vessel ischemic disease. There is no definite sign of acute or old infarction. No intracranial hemorrhage is evident. No definite mass lesion is seen on this noncontrast examination. There is no midline shift or other form of herniation. No hydrocephalus is seen. No fracture is identified. There is sphenoid sinus mucosal thickening and fluid. The mastoid air cells appear clear. Impression: 1. 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 Sphenoid sinusitis Electronically signed by Kyle Osborn 03-07-2025 5:19 PM Pelvis X-Ray 03/07/25 16:22 Clinical History: Injury One view of the pelvis is submitted for review. Findings: No fracture or dislocation is seen. There is lumbar scoliosis and degenerative disc disease. No other osseous abnormality is identified. There are radiotherapy implant seeds within the prostate Impression: No definite pelvic fracture Electronically signed by Kyle Osborn 03-07-2025 5:34 PM Shoulder X-Ray 03/07/25 16:22 Clinical History: Pain after fall 3 views of the left shoulder are submitted for review. Findings: No fracture or dislocation is seen. There is mild acromioclavicular and glenohumeral osteoarthritis. There is a diminished subacromial space, which could be due to a rotator cuff tear. No other osseous abnormality is identified. There are no radiopaque foreign bodies. Impression: 1. Mild osteoarthritis 2. Possible rotator cuff tear Electronically signed by Kyle Osborn 03-07-2025 5:[address] 03/07/25 18:05 Clinical history: Pain after fall Technique: Axial computed tomography images were obtained of the left hip without intravenous contrast. Sagittal and coronal reconstructions were obtained Findings: There are acute slightly displaced fractures of the left superior and inferior pubic rami and the left pubic symphysis. No subluxation or dislocation is seen. There is moderate to severe left hip osteoarthritis. There are sclerotic foci in the left sacrum and left ilium, likely benign bone islands The visualized musculature appears unremarkable. No soft tissue mass or fluid collection is seen. There are radiotherapy implant seeds within the prostate Impression: 1. Acute fractures of the left pubic rami and left pubic symphysis 2. Left hip osteoarthritis ACT 112: Positive. There are findings on this exam that require communication between the performing entity and the patient following Patient Test Result Information Act ([place] ACT 112) guidelines. Electronically signed by Kyle Osborn 03-07-2025 6:59 PM PG Care Time/CCT Total # of Minutes Spent Total Time Spent with Patient: Total time spent is greater than 50% in coordination of care (as documented) at patient's floor/unit and/or counseling patient: [place] [address] IN/OBS CONSULT LVL 4,60M Patient Type New History Expanded Problem Focused Exam Expanded Problem Focused Medical Decision Making Moderate Complexity Diagnoses Fracture of left inferior pubic ramus S32.592A Left shoulder pain M25.512
[2025-03-08] MEDS ORDERED: NON-FORMULARY MEDICATION (Fluticasone-Umeclidin-Vilanter [Trelegy Ellipta] 200-62.5-25 mcg INH SCH (09:00)
[2025-03-08] MEDS: ATORVASTATIN 40 MG TAB PO SCH (09:01)
[2025-03-08] MEDS: AZITHROMYCIN 250 MG TAB PO SCH (09:02)
[2025-03-08] MEDS: FAMOTIDINE 20 MG TAB PO SCH (09:03)
[2025-03-08] MEDS: SERTRALINE HCL 50 MG TABLET PO SCH (09:04)
[2025-03-08] MEDS: EZETIMIBE 10 MG TAB PO SCH (09:04)
[2025-03-08] MEDS: ADVANCED PROBIOTIC 625 MG CAPSULE PO SCH (09:04)
[2025-03-08] MEDS: VERAPAMIL HCL 120 MG TABCR PO SCH (09:04)
[2025-03-08] MEDS: UMECLIDINIUM/VILANTEROL 62.5/25MCG 7 PUFFS/INHALER INH SCH (09:05)
[2025-03-08] MEDS: SPIRONOLACTONE 25 MG TAB PO SCH (09:06)
[2025-03-08] MEDS: FLUTICASONE FUROATE 200MCG 14 PUFFS/INHALER INH SCH (09:06)
--- NOTE | 2025-03-08 10:41 | Hospitalist Progress Note ---
Date of Service March 08, 2025 Assessment & Plan (1) Closed pelvic fracture: Plan: Assessment and plan below following discussion of case with ED provider and reviewing patient history/pertinent normal/abnormal diagnostic test results. Left Superior and Inferior Pubic Ramus, Symphysis Pubis Left, Rotator cuff tear s/p Mechanical Fall -- evaluated by Ortho conservative management for now, pain control, WBAT PT/OT eval ordered PRN Tylenol, Oxycodone bowel regimen Hypertension, slightly elevated secondary discomfort - improving hx CAD status post CABG/stent as per records Mild MR/TR - no cardiac symptoms hx bilateral PE status post anti-coagulation Chronic bronchiectasis on azithromycin suppression Rx hx prostate cancer status post radiation/hormone therapy, hx MGUS; patient follows with [facility] Oncology hypothyroidism, euthyroid as of recent outpatient TSH past tobacco abuse DVT prophylaxis SCDs Re: Recent trauma Full code Disposition patient would like to go home later today awaiting PT/OT recommendations Admission and Anticipated Discharge Date Admission Date: March 07, 2025 Subjective seen resting in bed, comfortable, in good spirits very pleasant states he feels ok overall has moderate L shoulder and inguinal pain- pain medications relieving has chronic weakness of L arm- has not worsened no new weakness, numbness, paresthesias no chest pain, dyspnea, palpitations, dizziness no other symptoms Review of Systems Review of Systems: all noted and negative except for above Physical Exam Physical Exam: General- oriented x 3, not in distress, speaks in sentences with no effort or accessory muscle use Eyes- anicteric Neck- no JVD Lungs- clear breath sounds bilaterally, no rales/wheezes Heart- normal rate, regular rhythm; no murmurs Abdomen- normal bowel sounds, nondistended, soft, non tenderness Extremities- no pretibial edema, no calf tenderness L shoulder: no hematoma, edema, erythema mild tenderness mild limitation of arm extension over head L hip: no hematoma, edema, erythema Neuro- alert, oriented x 3; no gross focal neurologic deficits Skin- warm & dry Results & Data Results & Data Vital Signs (Past 12 Hours) Vital Signs Temp Pulse Resp BP O2 Del Method 03/08/25 07:20 36.3 C L 74 18 122/66 Room Air all noted and reviewed including below (1) Closed pelvic fracture Encounter type: initial encounter Pelvic bone location: unspecified part of pelvis
[2025-03-08] MEDS: PSYLLIUM HUSK 4GM PACKET PO SCH (11:41)
[2025-03-08] MEDS ORDERED: LEVALBUTEROL 1.25 MG/3 ML NEB NEB PRN (15:02)
[2025-03-08] MEDS ORDERED: IPRATROPIUM BROMIDE NEB SOLN 0.02% 0.5MG/2.5ML VIAL NEB PRN (15:02)
[2025-03-08 15:15] VITALS: TEMP 98.2; O2SAT 97
[2025-03-08 15:19] VITALS: PULSE 65
[2025-03-08 16:07] VITALS: BP 149/70
[2025-03-08] MEDS ORDERED: IPRATROPIUM BROMIDE NASAL SPRAY 0.06% 15ML SCH (21:00)
[2025-03-08] MEDS ORDERED: MONTELUKAST SODIUM 10 MG TABLET PO SCH (21:00)
[2025-03-08] MEDS ORDERED: ASPIRIN 81 MG ECTAB PO SCH (21:00)
[2025-03-08] MEDS ORDERED: TAMSULOSIN HCL 0.4 MG CAP PO SCH (21:00)
== END 2025-03-08 16:45 | disposition home or self-care (01) ==
LOC: 3N 15:25 → ED 15:25 → 3N 21:44